=== PATIENT | male | born 1935 | race Caucasian/White ===

== ENCOUNTER 2018-10-27 08:32 | Inpatient (IN) ==
--- OUTSIDE RECORDS SUMMARY | 2018-10-27 08:33 | External Medical Summary | Continuity of Care Document ---
:1935 Author Name Bruno Armando Address Unavailable Unavailable , Care Team Providers Name Role Phone Jacqueline Ortega Unavailable [email or web address] Matteo DOS SANTOS Unavailable Unavailable Assessments Assessed Problems:Sensorineural hearing loss (SNHL) of both ears Problems Sensorineural hearing loss (SNHL) of both ears (389.18) (H90 .3) Allergies and Adverse Reactions Allergy history not documented Medications Medications not documented Procedures Procedures not documented Immunizations Immunizations not documented Plan of Treatment Planned Observations Planned Goals not documented Results No Known Results Results not documented Encounters Appointment; Raheem Rich Au.D.|SEBASTIEN 26-May-2017 8:40 Encounter Diagnosis: Problem not documented"
[2018-10-27] MEDS ORDERED: ALBUT/IPRATROP 3MG/0.5MG NEB 3 ML VIAL INH STA (08:48)
[2018-10-27 09:05] LABS: Basophils # (auto) 0.06 K/uL (0-0.2); Basophils % (auto) 0.6 %; Eosinophils # (auto) 0.28 K/uL (0-0.5); Eosinophils % (auto) 2.8 %; Hemoglobin 12.3 g/dL (14.0-18.0); Immature Granulocytes # (auto) 0.02 K/uL (0.00-0.02); Immature Granulocytes % (auto) 0.2 %; Lymphocytes # (auto) 1.04 K/uL (1.2-3.4); Lymphocytes % (auto) 10.5 %; Mean Corpuscular Hgb Conc 34.2 g/dL (32-36); Mean Corpuscular Volume 95.2 fL (80-100); Mean Platelet Volume 11.3 fL (7.4-10.4); Monocytes # (auto) 0.86 K/uL (0.11-0.59); Monocytes % (auto) 8.7 %; Neutrophils # (auto) 7.65 K/uL (1.4-6.5); Neutrophils % (auto) 77.2 %; Platelet Count 199 K/uL (130-400); RDW Coefficient of Variation 12.4 % (11.5-14.5); RDW Standard Deviation 43.1 fL (36.4-46.3); Red Blood Count 3.78 M/uL (4.7-6.1); White Blood Count 9.91 K/uL (4.8-10.8)
[2018-10-27 09:20] LABS: INR 1.1 (0.9-1.1); Partial Thromboplastin Time 27.3 Seconds (21.0-31.0); Prothrombin Time 11.5 Seconds (9.0-12.0)
[2018-10-27 09:25] LABS: BUN Creatinine Ratio 10.7 (10-20); Blood Urea Nitrogen 12 mg/dl (7-18); Calcium 8.7 mg/dl (8.5-10.1); Carbon Dioxide 26 mmol/L (21-32); Chloride 102 mmol/L (98-107); Est GFR (African American) 73.7; Est GFR (Non-African American) 63.6; Glucose 178 mg/dl (70-99); Potassium 4.1 mmol/L (3.5-5.1); Sodium 137 mmol/L (136-145)
[2018-10-27 09:31] LABS: Troponin I 0.086 ng/ml (0-0.045)
--- NOTE | 2018-10-27 09:32 | XRay Report ---
XR chest 1V portable HISTORY: Dyspnea COMPARISON: Chest 11/07/2017. FINDINGS: No pneumothorax. No pleural effusions. Mild emphysema. Mild diffuse interstitial thickening which is likely chronic. No new focal lung consolidations to suggest pneumonia. No evidence for pulm onary edema. The heart is stable in size. IMPRESSION: No significant change compared to the prior study. No acute process. Electronically signed by: Shamir Olmstead M.D. 10/27/2018 9:31 AM
[2018-10-27] MEDS ORDERED: ASPIRIN CHEW 324 MG PO STA (09:54)
--- NOTE | 2018-10-27 10:06 | Emergency Department Note ---
Entered by Gemma Russ acting as a scribe for History of Present Illness General Chief complaint: Shortness of Breath/Dyspnea Stated complaint: SOB Time Seen by Provider: 10/27/18 08:42 Source: patient History of Present Illness Onset (ago): week(s) 2 Location: chest Pain Consistency: + other (persistent) Maximum Pain Intensity: 0 Quality: + other (shortness of breath) Associated symptoms: + denies other symptoms (fever, chest pain), + cough (productive (white sputum)) and + other (post-nasal drip) The patient is a 83 year old male that is presenting to the Emergency Room with complaints of a persistent shortness of breath that started 2 weeks ago and worsened over the past 2 days. The patient reports that he has been unable to sleep for the past 2 night secondary to his symptoms. He states that his breathing has been so short that he was afraid he was going to in his sleep. He notes that he saw his PCP 3 days ago and that he is scheduled to get an x-ray. He reports that he has a productive cough that is producing white sputum. He states that he has some post-nasal drip that may be causing his cough. He denies any chest pain or fever. The patient notes that he has a history of mild COPD. Home Medications Home Medications Medication Instructions Recorded Confirmed Type aspirin 81 mg PO QAM 10/27/18 10/27/18 History atorvastatin 10 mg PO QAM 10/27/18 10/27/18 History doxazosin 2 mg PO QAM 10/27/18 10/27/18 History fluticasone propionate 2 spray INTRANASAL BID 10/27/18 10/27/18 History lisinopril 40 mg PO QAM 10/27/18 10/27/18 History metoprolol succinate 25 mg PO QAM 10/27/18 10/27/18 History mirtazapine 45 mg PO HS 10/27/18 10/27/18 History Allergies Allergy/AdvReac Type Severity Reaction Status Date / Time No Known Allergies Allergy Unknown Verified 10/27/18 09:12 Past Med/Surg History Medical History Constipation Diarrhea Overflow diarrhea COPD (chronic obstructive pulmonary disease) Family History Other Family history non-contributory Social History marital status: Current Living Situation: Spouse current occupational status: retired Feels Safe at Home: Yes Smoking Status: Former smoker Review of Systems See HPI for pertinent positives & negatives. and A total of 10 systems reviewed and were otherwise negative Physical Exam Vital Signs Vital Signs - 24 hr 10/27/18 08:36 10/27/18 08:45 10/27/18 08:58 Temperature 36.6 C Temperature Source Oral Sepsis Recent Fever Within 48 Hours No Sepsis Action Taken by Nursing No Action Required Pulse Rate 96 H Pulse Rate [Left Radial] Respiratory Rate 24 Respiratory Effort / Characteristics Non-Labored Respiratory Depth Normal Normal Respiratory Pattern Regular Blood Pressure 149/55 H Blood Pressure [Right Arm] Blood Pressure Mean 86 Blood Pressure Mean [Right Arm] Pulse Oximetry 94 96 96 Oxygen Delivery Method Room Air Room Air Room Air 10/27/18 09:03 10/27/18 09:42 Temperature Temperature Source Sepsis Recent Fever Within 48 Hours Sepsis Action Taken by Nursing Pulse Rate Pulse Rate [Left Radial] 85 90 Respiratory Rate 20 18 Respiratory Effort / Characteristics Spontaneous Respiratory Depth Respiratory Pattern Blood Pressure Blood Pressure [Right Arm] 125/68 Blood Pressure Mean Blood Pressure Mean [Right Arm] 87 Pulse Oximetry 94 98 Oxygen Delivery Method Room Air CONSTITUTIONAL/VITAL SIGNS: Reviewed / noted above. GENERAL: Non-toxic in appearance. INTEGUMENTARY: Warm, dry, and [place]. HEAD: Normocephalic. EYES: without scleral icterus or trauma. ENT/OROPHARYNX: clear and moist. LYMPHADENOPATHY/NECK: Is supple without lymphadenopathy or meningismus. RESPIRATORY: Mild scattered expiratory wheezing. CARDIOVASCULAR: Regular rate and rhythm. GI/ABDOMEN: Soft and nontender. No organomegaly or pulsatile mass. No rebound or guarding. Normal bowel sounds. EXTREMITIES: Warm and well perfused. BACK: No CVA tenderness. NEUROLOGICAL: Intact without focal deficits. PSYCHIATRIC: normal affect. MUSCULOSKELETAL: Normally developed with good muscle tone. Course 0844:The patient was evaluated in room A10. A complete history and physical examination was performed. 58: I discussed the patient's case with JYOTSNA Wiley, who will evaluate the patient for further management and care with Dr. Moreno as the attending physician. 1006: Upon reevaluation, the patient is resting comfortably. I discussed laboratory and radiographic results with the patient. He verbalized agreement of the treatment plan. The patient will be evaluated for further management and care. Consultations Consultation #1: I discussed the patient's case with JYOTSNA Wiley, who will evaluate the patient for further management and care with Dr. Moreno as the attending physician. Time: 09:58 Administered Medications Discontinued Medications Albuterol (Duoneb) 3 ml INH NOW STA Stop: 10/27/18 08:49 Last Admin: 10/27/18 09:01 Dose: 3 ml Documented by: [id number] Medical Decision Making Differential Diagnosis Differential diagnosis: Etiologies such as infections, reactive airway disease, COPD, pneumonia, pleural effusion, pulmonary edema, ARDS, pneumothorax, CHF, cardiac ischemia, cardiac tamponade, dysrhythmia, anemia, pulmonary embolism, musculoskeletal, gastrointestinal process, as well as others were entertained. Medical Records Attestation: I reviewed the patient's medical records. Home Medications Current Medication List: was personally reviewed by me Laboratory Data Attestation: I reviewed the patient's lab results. Result diagrams: 10/27/18 08:55 10/27/18 08:55 Lab Results 10/27/18 10/27/18 10/27/18 Range/Units 08:55 08:55 08:55 WBC 9.91 (4.8-10.8) K/uL RBC 3.78 L (4.7-6.1) M/uL Hgb 12.3 L (14.0-18.0) g/dL Hct 36.0 L (42-52) % MCV 95.2 (80-100) fL MCH 32.5 (25-34) pg MCHC 34.2 (32-36) g/dL RDW Std Deviation 43.1 (36.4-46.3) fL RDW Coeff of Ty 12.4 (11.5-14.5) % Plt Count 199 (130-400) K/uL MPV 11.3 H (7.4-10.4) fL Immature Gran % (Auto) 0.2 % Neut % (Auto) 77.2 % Lymph % (Auto) 10.5 % [place] % (Auto) 8.7 % Eos % (Auto) 2.8 % Baso % (Auto) 0.6 % Immature Gran # (Auto) 0.02 (0.00-0.02) K/uL Neut # (Auto) 7.65 H (1.4-6.5) K/uL Lymph # (Auto) 1.04 L (1.2-3.4) K/uL [place] # (Auto) 0.86 H (0.11-0.59) K/uL Eos # (Auto) 0.28 (0-0.5) K/uL Baso # (Auto) 0.06 (0-0.2) K/uL PT 11.5 (9.0-12.0) Seconds INR 1.1 (0.9-1.1) APTT 27.3 (21.0-31.0) Seconds PTT Ratio 1.0 Sodium 137 (136-145) mmol/L Potassium 4.1 (3.5-5.1) mmol/L Chloride 102 (98-107) mmol/L Carbon Dioxide 26 (21-32) mmol/L Anion Gap 9.0 (3-11) BUN 12 (7-18) mg/dl Creatinine 1.08 (0.6-1.4) mg/dl Est Cr Clr Drug Dosing Not Reportable Est GFR ( Amer) 73.7 Est GFR (Non-Af Amer) 63.6 BUN/Creatinine Ratio 10.7 (10-20) Glucose 178 H (70-99) mg/dl Calcium 8.7 (8.5-10.1) mg/dl Troponin I 0.086 H* (0-0.045) ng/ml Imaging Data Radiologist's Impression: Radiology results as stated below per my review and the radiologist's interpretation: XR chest 1V portable HISTORY: Dyspnea COMPARISON: Chest 11/07/2017. FINDINGS: No pneumothorax. No pleural effusions. Mild emphysema. Mild diffuse interstitial thickening which is likely chronic. No new focal lung consolidations to suggest pneumonia. No evidence for pulmonary edema. The heart is stable in size. IMPRESSION: No significant change compared to the prior study. No acute process. Electronically signed by: Shamir Olmstead M.D. 10/27/2018 9:31 AM ECG Data Attestation: I personally reviewed and interpreted this ECG as follows: Indication: SOB/dyspnea Rate (beats per minute): 85 Rhythm: sinus rhythm Findings: + LBBB and + PVC; no ST elevation Comparison ECG Date: from (03/23/1999) Change: the following changes noted (LBBB is new) Blood Pressure Blood Pressure Findings: Elevated blood pressure Blood Pressure Disposition: Referred to patients primary care provider ANUP Leung This is an 83-year-old male who presents to the ED with a chief complaint of shortness of breath. The patient states that he has had shortness of breath for several weeks. He states that he saw his doctor 3 days ago and is to have a chest x-ray performed. Because of increased shortness of breath especially at night over the past couple of days, he came to the ED for evaluation. He states that he has not slept well the last couple of nights because of his shortness of breath. He does report a slight cough that is productive of white sputum. He states that this is mostly chronic related to postnasal drip. He denies having any chest pains. He has not had any fevers. He denies any other significant symptoms but does report some exertional shortness of breath with activity at times. The patient's vital signs are stable. He is afebrile. His physical exam was unremarkable with exception of a scattered wheeze in the bases. He was given a DuoNeb treatment for this. The patient's chest x-ray was clear. CBC and chemistry panel was unremarkable. Troponin was elevated at 0.086. Glucose is 178. EKG shows a sinus rhythm with a rate of 85 with a left bundle branch bl ock. According to the [facility] records, this is chronic. The patient was told the results of the test. He was given aspirin p.o. for his elevated troponin. He is currently not having any chest discomfort. He is otherwise resting comfortably in no distress. I talked to the hospitalist about the patient. They recommended a CT scan of the chest and will see the patient for inpatient evaluation for the elevated troponin. Impression & Plan Elevated troponin, Dyspnea Discharge Plan Visit Data Chief Complaint: Shortness of Breath/Dyspnea Stated Complaint: SOB ED Provider: Eitan Carolina Discharge Problem: Elevated troponin, Dyspnea Patient Disposition: Being Evaluated by Hospitalist Forms Stand Alone Forms: [facility] [employer] Prescriptions Prescriptions: No Action atorvastatin 10 mg tablet 10 mg PO QAM RF: 0 aspirin 81 mg Tablet,Delayed Release (Dr/Ec) 81 mg PO QAM RF: 0 mirtazapine 45 mg tablet 45 mg PO HS RF: 0 metoprolol succinate 25 mg tablet extended release 24 hr 25 mg PO QAM RF: 0 lisinopril 40 mg tablet 40 mg PO QAM RF: 0 fluticasone propionate 50 mcg/actuation spray,suspension 2 spray intranasal BID RF: 0 doxazosin 2 mg tablet 2 mg PO QAM RF: 0 Referrals Referrals: Taylor Lopez DO [Primary Care Provider] - Discharge Problem: Dyspnea Qualifiers: Dyspnea type: unspecified Qualified Code(s): R06.00 - Dyspnea, unspecified The scribe's documentation has been prepared under my direction and personally reviewed by me in its entirety. I confirm that the note above accurately reflects all work, treatment, procedures, and medical decision making performed by me.
[2018-10-27] MEDS ORDERED: IOVERSOL 100ml IV PRN (10:18)
--- NOTE | 2018-10-27 10:44 | CT Scan Report ---
CHEST CTA for PULMONARY ARTERIES CT DOSE: 575.15 mGy.cm HISTORY: Atypical chest pain. TECHNIQUE: Multiaxial CT images of the chest were performed following the intravenous administration of contrast to evaluate the pulmonary arteries. Maximal intensity projection images were also obtaine d. A dose lowering technique was utilized adhering to the principles of ALARA. COMPARISON STUDY: Chest CT 11/09/2017. FINDINGS: Mild calcified plaque within the normal caliber abdominal aorta. There is inadequate contra st within thoracic aorta to assess for a dissection. The heart is mildly enlarged. No pericardial eff usion. Small bilateral pleural effusions, right greater than left. No filling defects within the pulm onary arteries to suggest pulmonary embolus. Left adrenal gland thickening. This remains unchanged. T he visualized liver and spleen are unremarkable. Normal esophagus. Mediastinal and bilateral hilar ly mphadenopathy. Dominant AP window lymph node measures 2.0 x 1.5 cm. The lymphadenopathy is similar to the prior study. No pneumothorax. Mild emphysema with mild diffuse interstitial thickening. Small no dular densities within the right mainstem bronchus favors mucoid material. Partial mucoid opacificati on of the left lower lobe rhonchi. Patchy densities within the basal left lower lobe. This favors a p neumonia may be secondary to aspiration. Additional areas of consolidation within the lower lobes pos teriorly favors compressive atelectasis from the pleural effusions. Stable 5 mm nodule within the lef t lower lobe on image 166. There is also a stable 8 mm irregular nodular density within the left uppe r lobe posteriorly on image 214. I also demonstrate partial calcification no new pulmonary nodules id entified. IMPRESSION: 1. No evidence for pulmonary embolus. 2. Small bilateral pleural effusions. 3. Emphysema. 4. No change in the mild mediastinal and bilateral hilar lymphadenopathy. 5. Stable left lung nodules as described above the largest measuring 8 mm. These appear to be partial ly calcified. [address] follow-up recommended to ensure stability. 6. Partial mucoid opacification of the left lower lobe bronchi with a patchy airspace opacity at the left lower lobe. This may represent a pneumonia secondary to aspiration. Electronically signed by: Shamir Olmstead M.D. 10/27/2018 10:42 AM
[2018-10-27] MEDS ORDERED: AZITHROMYCIN 500 MG in DEXTROSE 5% 250 ML IV ONE (10:55)
[2018-10-27] MEDS ORDERED: cefTRIAXone SODIUM 1,000 MG in DEXTROSE 5% 50 ML IV STA (10:55)
[2018-10-27] MEDS ORDERED: AMPICILLIN/SULBACTAM SOD 3,000 MG in 0.9 % SODIUM CHLORIDE 100 ML IV SCH (11:03)
[2018-10-27] MEDS ORDERED: ALBUT/IPRATROP 3MG/0.5MG NEB 3 ML VIAL NEB PRN (12:13)
[2018-10-27] MEDS ORDERED: ACETAMINOPHEN 325 MG TAB PO PRN (12:13)
[2018-10-27 12:42] LABS: Estimated Average Glucose 123 mg/dl
[2018-10-27] MEDS ORDERED: DOXYCYCLINE HYCLATE 100 MG in DEXTROSE 5% 100 ML IV SCH (13:00)
--- NOTE | 2018-10-27 13:04 | History & Physical Report ---
Date of Service October 27, 2018 Assessment & Plan (1) Pneumonia: -Admit to [facility] with telemetry -Patient presenting with shortness of breath that has been ongoing for the past several months however acutely worsened over the past 2 days -In the ED, CTA chest showing left lower lobe patchy opacity, question possible aspiration -Saturating well on room air, afebrile, no leukocytosis -Given concerns for aspiration, will start patient on IV Unasyn and add on IV doxycycline (considered azithromycin however QTC 478) -No wheezing, will hold on steroids at this time -Pulmonary toilet with flutter valve, incentive spirometer, PRN nebs -Speech therapy eval re: possible aspiration (2) Elevated troponin: -Mildly elevated troponin at 0.086 -No reports of chest pain, EKG demonstrates unchanged LBBB -Likely due to mild demand ischemia secondary to acute illness -Continue cycle cardiac enzymes, check resting echo -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 Patient reports chronic shortness of breath over the past several months which has slowly been worsening. He reports acute worsening of the shortness of breath over the past couple of days. He has had a cough productive for white and yellow sputum at times. Cough is somewhat chronic as well. He reports worsening of the shortness of breath and cough when he lies flat at night. No chest pain. He denies fevers and chills. No lightheadedness, dizziness, diaphoresis, syncopal events. Patient reports his appetite is fair and has been trying to put on some weight. He reports a intentional 10 pound weight gain in the past 6 months. He does note some occasional coughing with eating. No lower extremity edema. He denies abdominal pain, nausea, vomiting, diarrhea. No urin thompson symptoms. In the ED, troponin is mildly elevated at 0.086. EKG shows an unchanged LBBB. CTA chest is negative for pulmonary embolism however shows left lower lobe patchy opacity. Patient is saturating well on room air. He was given a nebulizer and full dose aspirin. He reports improvement in his symptoms since receiving the neb. Allergies Allergy/AdvReac Type Severity Reaction Status Date / Time No Known Allergies Allergy Unknown Verified 10/27/18 09:12 Home Medications Home Medications Medication Instructions Recorded Confirmed Type aspirin 81 mg PO QAM 10/27/18 10/27/18 History atorvastatin 10 mg PO QAM 10/27/18 10/27/18 History doxazosin 2 mg PO QAM 10/27/18 10/27/18 History fluticasone propionate 2 spray INTRANASAL BID 10/27/18 10/27/18 History lisinopril 40 mg PO QAM 10/27/18 10/27/18 History metoprolol succinate 25 mg PO QAM 10/27/18 10/27/18 History mirtazapine 45 mg PO HS 10/27/18 10/27/18 History Past Med/Surg History Medical History Nonischemic cardiomyopathy (Chronic) History of EF is low as 35 to 40%, echo 2011 EF 58% Depression (Chronic) BPH (benign prostatic hyperplasia) (Chronic) Hypertension (Chronic) LBBB (left bundle branch block) (Chronic) PVD (peripheral vascular disease) (Chronic) 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 Pulmonary nodules (Chronic) COPD, mild (Chronic) Dyslipidemia (Chronic) Surgical History History of cardiac cath (Chronic) 2006-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) History of tonsillectomy and adenoidectomy (Chronic) History of cataract surgery (Chronic) History of appendectomy (Chronic) Family History Mother Hypertension Social History Preferred Language: [place] Communication Ability: Effective Broach Setter Required: No Beliefs That Will Affect Care: None marital status: Current Living Situation: Spouse current occupational status: retired Other Information That Helps Us Care for You: No Feels Safe at Home: Yes Safety Concerns: Feels Safe At This Time Smoking Status: Former smoker Tobacco Type: cigarettes Cigarettes Per Day: 20 Do You Dip or Chew Tobacco: No Second Hand Exposure: No Tobacco Cessation Ed ucation Requested by Patient: No Hx Alcohol Use: No Hx Substance Use: No Review of Systems Review of Systems: ROS per HPI, all other systems reviewed and negative Physical Exam Constitutional: + thin and + cachectic Vitals as above Eyes: PERRL, conjunctivae normal, anicteric sclerae ENMT: external ear and nose normal, oropharynx normal Respiratory: normal respiratory effort; no respiratory distress Auscultation: + diminished lung sounds Cardiovascular: Rate/Rhythm: regular rate and regular rhythm Vessels: normal peripheral pulses Extremities: no edema Gastrointestinal (Abdomen): normal bowel sounds, soft, nontender, no hepatosplenomegaly Musculoskeletal: no cyanosis or clubbing, extremities motor strength 5/5 Skin: no rashes, warm and dry Neurologic: PERRL, EOMI, accommodation nl, no face palsy, no dysarthria Psychiatric: A+Ox3, euthymic affect Results & Data Vital Signs (Past 12 Hours) Vital Signs Temp Pulse Pulse Resp BP BP BP 10/27/18 12:07 36.4 C L 66 18 134/64 10/27/18 11:30 77 22 120/77 10/27/18 11:00 76 20 139/70 10/27/18 10:20 85 16 144/57 H 10/27/18 09:42 90 18 125/68 10/27/18 09:03 85 20 10/27/18 08:58 10/27/18 08:45 10/27/18 08:36 36.6 C 96 H 24 149/55 H Pulse Ox 10/27/18 12:07 95 10/27/18 11:30 93 10/27/18 11:00 94 10/27/18 10:20 94 10/27/18 09:42 98 10/27/18 09:03 94 10/27/18 08:58 96 10/27/18 08:45 96 10/27/18 08:36 94 Laboratory Results Short CBC 10/27/18 Range/Units 08:55 WBC 9.91 (4.8-10.8) K/uL Hgb 12.3 L (14.0-18.0) g/dL Hct 36.0 L (42-52) % Plt Count 199 (130-400) K/uL BMP 10/27/18 08:55 Sodium 137 Potassium 4.1 Chloride 102 Carbon Dioxide 26 BUN 12 Creatinine 1.08 Glucose 178 H Calcium 8.7 Cardiac Enzymes 10/27/18 Range/Units 08:55 Troponin I 0.086 H* (0-0.045) ng/ml Diagnostic Findings CXR IMPRESSION: No significant change compared to the prior study. No acute process. CTA CHEST IMPRESSION: 1. No evidence for pulmonary embolus. 2. Small bilateral pleural effusions. 3. Emphysema. 4. No change in the mild mediastinal and bilateral hilar lymphadenopathy. 5. Stable left lung nodules as described above the largest measuring 8 mm. These appear to be partially calcified. [address] follow-up recommended to ensure stability. 6. Partial mucoid opacification of the left lower lobe bronchi with a patchy airspace opacity at the left lower lobe. This may represent a pneumonia secondary to aspiration. Code Status & VTE Plan Code Status Patient is a full code as per my discussion with him. VTE Prophylaxis Plan VTE Prophylaxis will be ordered: Yes Supervising Physician Co-Signing Physician Notes Patient is an 83-year-old male with history of hypertension, BPH, prediabetes, COPD, tobacco use, coronary artery disease and other problems presents with history of shortness of breath, cough which have been slowly progressively worsening. Please review HPI for complete details of presentation. CTA showed findings suggestive of small bilateral pleural effusions, emphysema, unchanged mild mediastinal and bilateral hilar lymphadenopathy, left lung nodules and possible partial mucoid opacification of the left lower lobe bronchi with patchy airspace opacity of the left lower lobe suggestive of possible pneumonia secondary to aspiration. He was also noted to have mild troponin elevation. His echo showed decreased EF, diastolic dysfunction. On exam patient is thin, frail, no apparent distress, normocephalic atraumatic, lungs-decreased breath sounds, bilateral basal crackles, S1-S2, no murmur, abdomen soft nontender, grossly no focal neurological deficits, no pedal edema. Patient is admitted for management of pneumonia, for evaluation of elevated troponins. No signs of sepsis. Agree with p.o. antibiotics. Appreciate cardiology input. Given Lasix. Management of volume status, ischemic cardiomyopathy, PVCs as per cardiology. I personally reviewed the record. Patient is interviewed and examined at bedside. Patient's care is coordinated with Tanja Herrera NP. Please refer to the documentation above for details of patient's presentation and for discussion of other issues.
[2018-10-27] MEDS: ENOXAPARIN INJ 40 MG/0.4 ML SYR SQ SCH (13:45)
--- NOTE | 2018-10-27 15:32 | Cardiology Consultation ---
Date of Consultation October 27, 2018 Assessment & Plan (1) Nonischemic cardiomyopathy: (2) LBBB (left bundle branch block): The patient underwent cardiac catheterization at [facility] in 2005 due to findings of left bundle branch block and mild to moderate left ventricular systolic dysfunction noted at that time. He was found to have a 50% stenosis in the mid LAD, and a 50% stenosis of 1 of the subbranches of a large diagonal branch. Medication therapy for ischemic cardiomyopathy was therefore instituted and he has done well for several years. A Holter monitor performed as an outpatient in 2010 revealed a moderate degree of PVCs and frequent supraventricular ectopy. Telemetry reveals frequent ectopy. Is little bit difficult to distinguish between what is supraventricular and what is ventricular to be due to the underlying left bundle branch block, but I believe he has frequent PVCs including episodes of sinus rhythm with ventricular bigeminy. The patient describes slow progressive worsening shortness of breath. He certainly could have worsening left ventricular systolic dysfunction due to progression of his coronary heart disease, but this could also very well be due to underlying left bundle branch block and frequent PVCs. Will start with dose of furosemide 20 mg IV x 1. DC IV antibiotics for now as I do not want to the IV fluid to contribute to volume overload. I think it is reasonable to proceed with a course of oral antibiotics until this is sorted out as he could have a superimposed pulmonary infection based on the CT. Continue aspirin, atorvastatin, lisinopril, metoprolol succinate. Lovenox 40 mg subcutaneously for DVT prophylaxis. Check liver function tests and TSH tomorrow. It may be reasonable to consider adding amiodarone as an inpatient while monitored on telemetry and attempt to suppress his ectopy as the ectopy may be contributing to his LV systolic dysfunction or perhaps it is a result of the LV systolic dysfunction. He has a mild but flat blunted elevation troponin, I think at this time this is consistent with congestive heart failure decompensation rather than an acute coronary syndrome. History of Present Illness Attending Physician: Yari Sarah DO History of Present Illness Krzysztof Victoria is an 83 year old male seen in cardiology consultation per the request of JYOTSNA Wiley for the evaluation of shortness of breath with findings of left ventricular systolic dysfunction on an echocardiogram performed earliear today. The patient has a long-standing history of left bundle branch block. An echocardiogram performed in 2008 revealed abnormal septal motion consistent with left bundle branch block and moderate global left ventricular hypokinesis with resting ejection fraction in the range of 35 to 40% at that time. He was treated with medications including metoprolol and lisinopril. Repeat resting transthoracic echocardiogram performed as an outpatient 2011 revealed normaliz ation of the LVEF. He had most recently been seen in outpatient cardiology follow-up with Dr. Davidson in 2011 at which time stable cardiac signs and symptoms were noted. Patient presented to the emergency department earlier today with complaints of shortness of breath and cough. Apparently the shortness of breath has been present over the last several months however it is been progressively worse, especially over the last few days. He has had a cough productive of white and yellow sputum at times. He reports worsening of the shortness of breath and cough when he lies flat. He denies any aleksandar chest discomfort. 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 He lives in [facility] with his and granddaughter. A CT angiogram have been performed in the emergency department revealed no pulmonary embolism, but did show small bilateral pleural effusions as well as a left lower lobe opacity. The patient was admitted and placed on antibiotics for suspected community acquired pneumonia. A resting transthoracic echocardiogram was performed. During the echocardiogram frequent ectopy was noted with moderate left ventricular systolic dysfunction, calculated LVEF in the range of 37%. Mild to moderate mitral regurgitation was noted. Mild tricuspid regurgitation was noted with calculated pulmonary artery systolic pressure in the range of 44 mmHg. A trace circumferential pericardial effusion without tamponade was noted. Allergies Allergy/AdvReac Type Severity Reaction Status Date / Time No Known Allergies Allergy Unknown Verified 10/27/18 09:12 Home Medications Home Medications Medication Instructions Recorded Confirmed Type aspirin 81 mg PO QAM 10/27/18 10/27/18 History atorvastatin 10 mg PO QAM 10/27/18 10/27/18 History doxazosin 2 mg PO QAM 10/27/18 10/27/18 History fluticasone propionate 2 spray INTRANASAL BID 10/27/18 10/27/18 History lisinopril 40 mg PO QAM 10/27/18 10/27/18 History metoprolol succinate 25 mg PO QAM 10/27/18 10/27/18 History mirtazapine 45 mg PO HS 10/27/18 10/27/18 History Patient History Medical History Nonischemic cardiomyopathy (Chronic) History of EF is low as 35 to 40%, echo 2012 EF 58% Depression (Chronic) BPH (benign prostatic hyperplasia) (Chronic) Hypertension (Chronic) LBBB (left bundle branch block) (Chronic) PVD (peripheral vascular disease) (Chronic) 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 Pulmonary nodules (Chronic) COPD, mild (Chronic) Dyslipidemia (Chronic) Surgical History History of cardiac cath (Chronic) 2006-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) History of tonsillectomy and adenoidectomy (Chronic) History of cataract surgery (Chronic) History of appendectomy (Chronic) Family History Mother Hypertension Social History Preferred Language: Bengali Communication Ability: Effective Engine Pilot Required: No Beliefs That Will Affect Care: None marital status: Current Living Situation: Spouse current occupational status: retired Other Information That Helps Us Care for You: No Feels Safe at Home: Yes Safety Concerns: Feels Safe At This Time Smoking Status: Former smoker Tobacco Type: cigarettes Cigarettes Per Day: 20 Do You Dip or Chew Tobacco: No Second Hand Exposure: No Tobacco Cessation Education Requested by Patient: No Hx Alcohol Use: No Hx Substance Use: No Review of Systems Review of Systems: All systems reviewed & are unremarkable except as noted in HPI & below Physical Exam Constitutional: + cachectic; no acute distress Respiratory: Auscultation: + diminished lung sounds (Mildly decreased breath sounds the bases); no crackles, no rales and no rhonchi Cardiovascular: RRR, no murmur, no edema Vessels: no JVD Extremities: no edema Gastrointestinal (Abdomen): normal bowel sounds, soft, nontender, no hepatosplenomegaly Neurologic: PERRL, EOMI, accommodation nl, no face palsy, no dysarthria Results & Data Vital Signs (Past 12 Hours) Vital Signs Temp Pulse Pulse Resp BP BP BP 10/27/18 15:01 10/27/18 14:46 36.4 C L 69 20 130/66 10/27/18 12:07 36.4 C L 66 18 134/64 10/27/18 11:30 77 22 120/77 10/27/18 11:00 76 20 139/70 10/27/18 10:20 85 16 144/57 H 10/27/18 09:42 90 18 125/68 10/27/18 09:03 85 20 10/27/18 08:58 10/27/18 08:45 10/27/18 08:36 36.6 C 96 H 24 149/55 H Pulse Ox Pulse Ox 10/27/18 15:01 95 10/27/18 14:46 95 10/27/18 12:07 95 10/27/18 11:30 93 10/27/18 11:00 94 10/27/18 10:20 94 10/27/18 09:42 98 10/27/18 09:03 94 10/27/18 08:58 96 10/27/18 08:45 96 10/27/18 08:36 94 Laboratory Results Cardiac Enzymes 10/27/18 10/27/18 Range/Units 08:55 14:41 Troponin I 0.086 H* 0.081 H* (0-0.045) ng/ml Coagulation 10/27/18 Range/Units 08:55 PT 11.5 (9.0-12.0) Seconds APTT 27.3 (21.0-31.0) Seconds CBC 10/27/18 Range/Units 08:55 WBC 9.91 (4.8-10.8) K/uL RBC 3.78 L (4.7-6.1) M/uL Hgb 12.3 L (14.0-18.0) g/dL Hct 36.0 L (42-52) % Plt Count 199 (130-400) K/uL Neut # (Auto) 7.65 H (1.4-6.5) K/uL Lymph # (Auto) 1.04 L (1.2-3.4) K/uL [place] # (Auto) 0.86 H (0.11-0.59) K/uL Eos # (Auto) 0.28 (0-0.5) K/uL Baso # (Auto) 0.06 (0-0.2) K/uL Comprehensive Metabolic Panel 10/27/18 Range/Units 08:55 Sodium 137 (136-145) mmol/L Potassium 4.1 (3.5-5.1) mmol/L Chloride 102 (98-107) mmol/L Carbon Dioxide 26 (21-32) mmol/L BUN 12 (7-18) mg/dl Creatinine 1.08 (0.6-1.4) mg/dl Glucose 178 H (70-99) mg/dl Calcium 8.7 (8.5-10.1) mg/dl Intake and Output 10/27/18 10/27/18 10/27/18 06:59 14:59 22:59 Intake Total 468 / 468 Balance 468 / 468 Intake: IV 108 / 108 Unasyn 3,000 mg In Sodium 108 / 108 Chloride 100 ml @ 200 mls/hr IV Q6H [facility] Rx#:[id number] Oral 360 / 360 Other: # Unmeasured Voids 1 Weight 56.3 kg 56.3 kg Patient Weight 10/28/18 06:59 Weight 56.3 kg Diagnostic Findings EKG performed today 10/27/2018 at 8:44 AM revealed sinus rhythm with frequent supraventricular and ventricular ectopy, left bundle branch block, QRS duration 144 ms. Medications Administered Current Inpatient Medications Acetaminophen (Tylenol) 650 mg PO Q4H PRN PRN Reason: pain/fever Stop: 11/26/18 12:12 Albuterol (Duoneb) 3 ml NEB Q4R PRN PRN Reason: shortness of breath Stop: 11/26/18 12:12 Amoxicillin/Clavulanate Potassium (Augmentin 875mg) 1 tab PO BIDM [facility] Stop: 11/03/18 16:59 Aspirin (Ecotrin Ectab) 81 mg PO QAM [facility] Stop: 11/27/18 08:59 Atorvastatin Calcium (Lipitor) 10 mg PO QAM [facility] Stop: 11/27/18 08:59 Doxazosin Mesylate (Cardura) 2 mg PO QAM [facility] Stop: 11/27/18 08:59 Doxycycline Hyclate (Vibramycin) 100 mg PO BID [facility] Stop: 11/03/18 20:59 Enoxaparin Sodium (Lovenox) 40 mg SQ Q24H [facility] Stop: 11/26/18 12:59 Last Admin: 10/27/18 13:45 Dose: 40 mg Documented by: Fluticasone Propionate (Flonase) 2 sprays NA BID [facility] Stop: 11/26/18 20:59 Lisinopril (Zestril) 40 mg PO QAM [facility] Stop: 11/27/18 08:59 Metoprolol Succinate (Toprol Xl) 25 mg PO QAM [facility] Stop: 11/27/18 08:59 Mirtazapine (Remeron Solutab) 45 mg PO HS [facility] Stop: 11/26/18 20:59
[2018-10-27] MEDS ORDERED: FUROSEMIDE 20 MG in SYRINGE 0 ML IV ONE (16:00)
[2018-10-27] MEDS: AMOXICILLIN/CLAVULANATE 875 MG TAB PO SCH (16:59)
[2018-10-27] MEDS: DOXYCYCLINE HYCLATE 100 MG CAP PO SCH (21:02)
[2018-10-27] MEDS: FLUTICASONE PROPIONATE NA SPR 16 GM BTL SCH (21:02)
[2018-10-27] MEDS: MIRTAZAPINE SOLTAB 15 MG PO SCH (21:03)
[2018-10-28 01:56] LABS: Basophils # (auto) 0.05 K/uL (0-0.2); Basophils % (auto) 0.4 %; Eosinophils # (auto) 0.26 K/uL (0-0.5); Hematocrit (blood only) 37.8 % (42-52); Hemoglobin 12.7 g/dL (14.0-18.0); Immature Granulocytes # (auto) 0.02 K/uL (0.00-0.02); Immature Granulocytes % (auto) 0.2 %; Lymphocytes # (auto) 0.37 K/uL (1.2-3.4); Lymphocytes % (auto) 2.9 %; Mean Corpuscular Hgb Conc 33.6 g/dL (32-36); Mean Corpuscular Volume 96.2 fL (80-100); Mean Platelet Volume 11.6 fL (7.4-10.4); Monocytes # (auto) 0.53 K/uL (0.11-0.59); Monocytes % (auto) 4.2 %; Neutrophils # (auto) 11.48 K/uL (1.4-6.5); Neutrophils % (auto) 90.3 %; Platelet Count 209 K/uL (130-400); RDW Coefficient of Variation 12.6 % (11.5-14.5); RDW Standard Deviation 44.5 fL (36.4-46.3); Red Blood Count 3.93 M/uL (4.7-6.1); White Blood Count 12.71 K/uL (4.8-10.8)
[2018-10-28] MEDS: METOPROLOL SUCC 25MG EXT REL TAB PO SCH (02:01)
[2018-10-28 02:10] LABS: Partial Thromboplastin Time 28.1 Seconds (21.0-31.0)
[2018-10-28 02:14] LABS: BUN Creatinine Ratio 13.6 (10-20); Calcium 8.5 mg/dl (8.5-10.1); Creatinine Clr Calc Pharmacy 32.6 ml/min; Est GFR (African American) 54.3; Est GFR (Non-African American) 46.9; Magnesium 2.2 mg/dl (1.8-2.4)
[2018-10-28 02:25] LABS: Albumin Globulin Ratio 0.7 (0.9-2); Bilirubin,Total 0.8 mg/dl (0.2-1); Globulin 4.5 gm/dl (2.5-4.0); Total Protein 7.5 gm/dl (6.4-8.2)
[2018-10-28] MEDS ORDERED: METOPROLOL SUCC 25MG EXT REL TAB PO SCH (09:00)
[2018-10-28] MEDS: DOXAZosin MESYLATE TAB 2 MG TAB PO SCH (09:26)
[2018-10-28] MEDS: FLUTICASONE PROPIONATE NA SPR 16 GM BTL SCH ×2 (09:26→20:45)
[2018-10-28] MEDS: AMOXICILLIN/CLAVULANATE 875 MG TAB PO SCH ×2 (09:26→17:11)
[2018-10-28] MEDS: ATORVASTATIN 10 MG TAB PO SCH (09:26)
[2018-10-28] MEDS: LISINOPRIL 40 MG TAB PO SCH (09:26)
[2018-10-28] MEDS: ASPIRIN 81 MG ECTAB PO SCH (09:26)
[2018-10-28] MEDS: DOXYCYCLINE HYCLATE 100 MG CAP PO SCH ×2 (09:27→20:46)
[2018-10-28] MEDS ORDERED: AMIODARONE 200 MG TAB PO ONE (13:02)
--- NOTE | 2018-10-28 13:10 | Cardiology Progress Note ---
Date of Service October 28, 2018 Assessment & Plan (1) Nonischemic cardiomyopathy: Echocardiogram reviewed again. It is felt that moderate left ventricular systolic dysfunction is present with ejection fraction in the range of 30 to 34% with abnormal septal motion consistent with left bundle branch block, and mild to moderate global left ventricular hypokinesis otherwise. Patient with remote cardiac cath for work-up of what was deemed to be a nonischemic cardiomyopathy dating back to 2005 at which time he had a 50% mid LAD lesion, and 50% stenosis of a subbranch of a large diagonal, this subbranch was too small to be amenable to PCI. The patient had been well with medication therapy including aspirin, metoprolol succinate, and lisinopril for years, and his ejection fraction normalized as of his echocardiogram in 2011. At present, continue metoprolol succinate 25 mg daily and lisinopril. Frequent supraventricular and ventricular ectopy noted as well as joceline of nonsustained ventricular tachycardia, at low-dose amiodarone with caution 200 mg twice daily. Ischemic work-up likely indicated, if no significant ischemia, will consider cardiac resynchronization therapy. The patient is considering how invasive approach he would prefer. He believes he would be agreeable to a cardiac catheterization but is not certain if he would be agreeable to pacemaker AICD . After 20 mg of IV furosemide his creatinine went from 1.08-1.39 he is not overtly volume overloaded today, I will hold off on further diuretic therapy. (2) Pneumonia: Possible superimposed pneumonia as noted on chest x-ray. Continue oral antibiotics. (3) NSVT (nonsustained ventricular tachycardia): 18 beat joceline of nonsustained ventricular tachycardia at 192 bpm was noted on 10/28/2018 at 1:02 AM. Continue metoprolol. Start amiodarone. Patient does have a history of past frequent supraventricular and ventricular ectopy. If he was to benefit from a cardiac resynchronization therapy, would need to place him on medication to suppress the ectopy, will start working on this now. Subjective Chief complaint: Follow-up cough, shortness of breath, orthopnea Subjective: Patient states breathing perhaps a little bit better after receiving 20 mg of IV furosemide yesterday. He still has persistent cough. Review of Systems Review of Systems: All systems reviewed & are unremarkable except as noted in HPI & below Physical Exam Physical Exam: Temp Pulse Resp BP Pulse Ox 36.6 C 87 18 110/57 L 94 10/28/18 10:46 10/28/18 12:25 10/28/18 10:46 10/28/18 10:46 10/28/18 10:46 Constitutional: WD/WN, vitals as above + cachectic Respiratory: normal respiratory effort, lungs clear to auscultation Cardiovascular: Rate/Rhythm: regular rate Heart Sounds: + murmur (1/6 systolic murmur) Vessels: + JVD Extremities: no edema Gastrointestinal (Abdomen): normal bowel sounds, soft, nontender, no hepatosplenomegaly Neurologic: PERRL, EOMI, accommodation nl, no face palsy, no dysarthria Results & Data Vital Signs (Past 12 Hours) Vital Signs Temp Pulse Pulse Resp BP Pulse Ox 10/28/18 12:25 87 10/28/18 10:46 36.6 C 74 18 110/57 L 94 10/28/18 06:56 36.4 C L 91 H 20 124/61 93 10/28/18 03:37 36.8 C 74 18 138/52 L 94
[2018-10-28] MEDS: ENOXAPARIN INJ 40 MG/0.4 ML SYR SQ SCH (13:37)
[2018-10-28] MEDS: AMIODARONE 200 MG TAB PO SCH (17:12)
--- NOTE | 2018-10-28 18:48 | Hospitalist Progress Note ---
Date of Service October 28, 2018 Assessment & Plan (1) Pneumonia: Pneumonia possibly secondary to aspiration. Continue Augmentin. No hypoxia or hemodynamic instability is present and he is afebrile and doing well on this. Video swallow study set up for tomorrow with speech pathology recommendations to follow. Continue pulmonary toilet with flutter valve, incentive spirometer and PRN nebulizers. (2) Elevated troponin: Likely secondary to structural heart disease in setting of infection. Blunted rise in troponin on serial examination. Cardiology is aware and considering further ischemic work-up with cardiac catheterization. (3) Nonischemic cardiomyopathy: History of nonischemic cardiopathy in the past with some nonobstructive cardiac disease seen at the time of diagnosis. Continue medical management of cardiac disease and potential cardiac cath per cardiology this admission. The patient is not overtly decompensated. Diuretics were discontinued. Amiodarone initiated (4) Hypertension: Blood pressure at goal, hold lisinopril in setting of mild CJ. Continue Toprol-XL 25 mg p.o. every morning. (5) CJ (acute kidney injury): Secondary to diuretics in setting of lisinopril. Hold lisinopril and repeat BMP in a.m. Diuretics are also stopped. (6) BPH (benign prostatic hyperplasia): Continue doxazosin (7) DVT prophylaxis: -SQ Lovenox Full code Disposition-pending further work-up with cardiac catheterization. Yari Sarah DO [facility] Hospitalist Subjective 83-year-old man presents to the emergency room with several weeks of shortness of breath which has been progressively worsened. He states he ultimately came to the ER because he was not able to sleep because he could not breathe. He states that during the day he was able to breathe better however, he denies any orthopnea or PND and has had no swelling or weight gain recently. He denies any chest pain. He reports some cough and cannot really give a history on how this has progressed. He denies any production to this cough. He denies any fevers or chills or sick contacts. He does report some possible choking on water recently but cannot give a timing of this and states he has had no issues swallowing solids. He does not have any hypoxia however work-up revealed a pneumonia possibly secondary to aspiration so he was started on IV Unasyn and an IV doxycycline to cover for atypicals. Speech therapy was consulted to evaluate the and recommended a video swallow study on Monday. Cardiology was consulted as an echocardiogram revealed a depressed ejection fraction which was a new finding. Additionally his troponin was mildly elevated. A cardiac cath was recommended. On telemetry overnight he had a 10 beat run of V. tach and has a left bundle branch block with frequent ectopy that is noted. Cardiology is medically managing with metoprolol succinate, lisinopril and adding low-dose amiodarone. IV diuretics were initiated however his renal function declined overnight and he is not overtly volume overloaded so this was held. The patient reports feeling "okay" and does not give many details without prompting. He is in no acute distress but reports having no appetite. He otherwise denies any symptoms and can reiterate to me the plan from speech and cardiology for tomorrow. Review of Systems Review of Systems: All systems reviewed & are unremarkable except as noted in HPI & below Physical Exam Physical Exam: CONSTITUTIONAL: thin, vitals as above, generally well- appearing EYES: normal conjunctivae, no scleral icterus ENT: MMM RESPIRATORY: clear to auscultation bilaterally, no crackles, rales or wheezes, normal respiratory effort CARDIOVASCULAR: regular rate and rhythm, S1 and 2 heard without murmurs, gallops or rubs, no JVD, no peripheral edema GASTROINTESTINAL: normal bowel sounds, soft, nontender, nondistended MUSCULOSKELETAL: strength 5/5 throughout, head is normocephalic and atraumatic SKIN: warm and dry NEUROLOGIC: CN 2-12 grossly intact, normal cognition and speech, no gross focal deficits. PSYCHIATRIC: alert cooperative and oriented to person, place and time. Results & Data Vital Signs (Past 12 Hours) Vital Signs Temp Pulse Pulse Pulse Resp BP Pulse Ox 10/28/18 17:13 81 10/28/18 17:10 79 10/28/18 15:53 36.5 C 47 L 20 115/65 96 10/28/18 12:25 87 10/28/18 10:46 36.6 C 74 18 110/57 L 94 10/28/18 06:56 36.4 C L 91 H 20 124/61 93 Laboratory Results Short CBC 10/28/18 Range/Units 01:38 WBC 12.71 H (4.8-10.8) K/uL Hgb 12.7 L (14.0-18.0) g/dL Hct 37.8 L (42-52) % Plt Count 209 (130-400) K/uL BMP 10/28/18 01:38 Sodium 135 L Potassium 4.0 Chloride 101 Carbon Dioxide 26 BUN 19 H D Creatinine 1.39 D Glucose 107 H Calcium 8.5 Cardiac Enzymes 10/27/18 Range/Units 21:25 Troponin I 0.082 H* (0-0.045) ng/ml Liver Function 10/28/18 Range/Units 01:38 Total Bilirubin 0.8 (0.2-1) mg/dl AST 11 L (15-37) U/L ALT 13 (12-78) U/L Alkaline Phosphatase 71 (45-117) U/L Albumin 3.0 L (3.4-5.0) gm/dl Medications Administered Current Inpatient Medications Acetaminophen (Tylenol) 650 mg PO Q4H PRN PRN Reason: pain/fever Stop: 11/26/18 12:12 Albuterol (Duoneb) 3 ml NEB Q4R PRN PRN Reason: shortness of breath Stop: 11/26/18 12:12 Amiodarone [facility]) [facility] Stop: 11/27/18 16:59 Last Admin: 10/28/18 17:12 Dose: 200 mg Documented by: Amoxicillin/Clavulanate Potassium (Augmentin 875mg) [facility]; Protocol Stop: 11/03/18 16:59 Last Admin: 10/28/18 17:11 Dose: 1 tab Documented by: Aspirin (Ecotrin Ectab) 81 mg PO [facility] Stop: 11/27/18 08:59 Last Admin: 10/28/18 09:26 Dose: 81 mg Documented by: Atorvastatin Calcium (Lipitor) 10 mg PO [facility] Stop: 11/27/18 08:59 Last Admin: 10/28/18 09:26 Dose: 10 mg Documented by: Doxazosin Mesylate (Cardura) 2 mg PO [facility] Stop: 11/27/18 08:59 Last Admin: 10/28/18 09:26 Dose: 2 mg Documented by: Doxycycline Hyclate (Vibramycin) 100 mg PO BID [facility]; Protocol Stop: 11/03/18 20:59 Last Admin: 10/28/18 09:27 Dose: 100 mg Documented by: Enoxaparin Sodium (Lovenox) 40 mg SQ Q24H [facility] Stop: 11/26/18 12:59 Last Admin: 10/28/18 13:37 Dose: 40 mg Documented by: Fluticasone Propionate (Flonase) 2 sprays NA BID [facility] Stop: 11/26/18 20:59 Last Admin: 10/28/18 09:26 Dose: 2 sprays Documented by: Lisinopril (Zestril) 40 mg PO QAM [facility] Stop: 11/27/18 08:59 Last Admin: 10/28/18 09:26 Dose: 40 mg Documented by: Metoprolol Succinate (Toprol Xl) 25 mg PO QAM [facility] Stop: 11/27/18 01:14 Last Admin: 10/28/18 02:01 Dose: 25 mg Documented by: Mirtazapine (Remeron Solutab) 45 mg PO HS [facility] Stop: 11/26/18 20:59 Last Admin: 10/27/18 21:03 Dose: 45 mg Documented by:
[2018-10-28] MEDS: MIRTAZAPINE SOLTAB 15 MG PO SCH (20:45)
[2018-10-29 08:27] LABS: Calcium 8.8 mg/dl (8.5-10.1); Est GFR (African American) 66.9; Est GFR (Non-African American) 57.7; Potassium 3.6 mmol/L (3.5-5.1)
[2018-10-29] MEDS: ASPIRIN 81 MG ECTAB PO SCH (08:27)
[2018-10-29] MEDS: ATORVASTATIN 10 MG TAB PO SCH (08:27)
[2018-10-29] MEDS: FLUTICASONE PROPIONATE NA SPR 16 GM BTL SCH ×2 (08:27→20:30)
[2018-10-29] MEDS: DOXAZosin MESYLATE TAB 2 MG TAB PO SCH (08:27)
[2018-10-29] MEDS: METOPROLOL SUCC 25MG EXT REL TAB PO SCH (08:28)
[2018-10-29] MEDS: AMIODARONE 200 MG TAB PO SCH ×2 (08:28→16:04)
[2018-10-29] MEDS: AMOXICILLIN/CLAVULANATE 875 MG TAB PO SCH ×2 (08:28→16:05)
[2018-10-29] MEDS: DOXYCYCLINE HYCLATE 100 MG CAP PO SCH (08:28)
--- NOTE | 2018-10-29 10:46 | Cardiology Progress Note ---
Date of Service October 29, 2018 Assessment & Plan (1) Nonischemic cardiomyopathy: Echocardiogram reviewed again. It is felt that moderate left ventricular systolic dysfunction is present with ejection fraction in the range of 30 to 34% with abnormal septal motion consistent with left bundle branch block, and mild to moderate global left ventricular hypokinesis otherwise. Patient with remote cardiac cath for work-up of what was deemed to be a nonischemic cardiomyopathy dating back to 2005 at which time he had a 50% mid LAD lesion, and 50% stenosis of a subbranch of a large diagonal, this subbranch was too small to be amenable to PCI. The patient is on adequate guideline directed medication. He may benefit from a biventricular pacemaker. We should exclude ischemia prior to proceeding with a resynchronize and device. We could perform a cardiac catheterization however, I think it is best that we performed a noninvasive study such as a pharmacologic nuclear stress test. If that study is markedly abnormal we will proceed with a cardiac catheterization. (2) Pneumonia: Possible superimposed pneumonia as noted on chest x-ray. Continue oral antibiotics. The patient is to have a swallowing study done for aspiration. (3) NSVT (nonsustained ventricular tachycardia): 18 beat joceline of nonsustained ventricular tachycardia at 192 bpm was noted on 10/28/2018 at 1:02 AM. Continue metoprolol. Start amiodarone. Patient does have a history of past frequent supraventricular and ventricular ectopy. If he was to benefit from a cardiac resynchronization therapy, would need to place him on medication to suppress the ectopy, will start working on this now. Subjective The patient has no new cardiac complaints today. He has cardiomyopathy and dy ssynchrony because of his left bundle branch block. He would be a candidate for biventricular pacemaker. He has had a previous cardiac catheterization at [facility] approximately 10 years ago that showed nonobstructive disease. I think it ischemic cardiomyopathy has to be excluded and I feel the best way to proceed is with a pharmacologic nuclear stress test. If that is abnormal then he will require cardiac catheterization. Review of Systems Review of Systems: All systems reviewed & are unremarkable except as noted in HPI & below Nothing additional Physical Exam Physical Exam: General: no acute distress and stated age Head: normocephalic, no masses, lesions, tenderness or abnormalities Eyes: conjunctiva are pink and non-injected, sclera clear Neck: supple, no adenopathy, no bruits, normal jugular venous pulse, no hepatojugular reflux Chest: normal shape and normal respiratory effort Lungs: clear to auscultation and percussion Cardiac Exam: - regular rate & rhythm, no murmurs gallops or rubs - normal S1, normal S2 Pulses: 2(+) throughout Abdomen: abdomen soft, non-tender, no abnormal masses and no hepatosplenomegaly Musculoskeletal: no gait disturbance, no joint inflammation, no deforming arthritis Extremities: no edema and no cyanosis Neuro: grossly normal exam Results & Data Vital Signs (Past 12 Hours) Vital Signs Temp Pulse Pulse Resp BP Pulse Ox 10/29/18 07:18 36.4 C L 68 18 147/62 H 96 10/29/18 04:52 36.3 C L 71 20 131/73 93 10/29/18 00:25 78 10/28/18 23:53 36.4 C L 82 20 153/67 H 94 Laboratory Results Laboratory Results - last 24 hr 10/28/18 10/28/18 10/28/18 11:35 16:43 20:06 Sodium Potassium Chloride Carbon Dioxide Anion Gap BUN Creatinine Est Cr Clr Drug Dosing Est GFR ( Amer) Est GFR (Non-Af Amer) BUN/Creatinine Ratio Glucose POC Glucose 120 H 104 H 112 H Calcium 10/29/18 10/29/18 07:20 07:34 Sodium 137 Potassium 3.6 Chloride 103 Carbon Dioxide 28 Anion Gap 6.0 BUN 19 H Creatinine 1.17 Est Cr Clr Drug Dosing 37.0 Est GFR ( Amer) 66.9 Est GFR (Non-Af Amer) 57.7 BUN/Creatinine Ratio 16.0 Glucose 100 H POC Glucose 123 H Calcium 8.8 Medications Administered Current Inpatient Medications Acetaminophen (Tylenol) 650 mg PO Q4H PRN PRN Reason: pain/fever Stop: 11/26/18 12:12 Albuterol (Duoneb) 3 ml NEB Q4R PRN PRN Reason: shortness of breath Stop: 11/26/18 12:12 Amiodarone HCl (Cordarone) 200 mg PO BIDM [facility] Stop: 11/27/18 16:59 Last Admin: 10/29/18 08:28 Dose: 200 mg Documented by: Amoxicillin/Clavulanate Potassium (Augmentin 875mg) 1 tab PO BIDM [facility]; Protocol Stop: 11/03/18 16:59 Last Admin: 10/29/18 08:28 Dose: 1 tab Documented by: Aspirin (Ecotrin Ectab) 81 mg PO [facility] Stop: 11/27/18 08:59 Last Admin: 10/29/18 08:27 Dose: 81 mg Documented by: Atorvastatin [facility]cium ([facility]) [facility] Stop: 11/27/18 08:59 Last Admin: 10/29/18 08:27 Dose: 10 mg Documented by: Doxazosin Mesylate (Cardura) 2 mg PO [facility] Stop: 11/27/18 08:59 Last Admin: 10/29/18 08:27 Dose: 2 mg Documented by: Enoxaparin Sodium (Lovenox) 40 mg SQ Q24H [facility] Stop: 11/26/18 12:59 Last Admin: 10/28/18 13:37 Dose: 40 mg Documented by: Fluticasone Propionate (Flonase) 2 sprays NA BID [facility] Stop: 11/26/18 20:59 Last Admin: 10/29/18 08:27 Dose: 2 sprays Documented by: Lisinopril (Zestril) 40 mg PO [facility] Stop: 11/27/18 08:59 Last Admin: 10/28/18 09:26 Dose: 40 mg Documented by: Metoprolol Succinate (Toprol Xl) 25 mg PO [facility] Stop: 11/27/18 01:14 Last Admin: 10/29/18 08:28 Dose: 25 mg Documented by: Mirtazapine (Remeron Solutab) 45 mg PO [facility] Stop: 11/26/18 20:59 Last Admin: 10/28/18 20:45 Dose: 45 mg Documented by:
--- NOTE | 2018-10-29 12:59 | Hospitalist Progress Note ---
Date of Service October 29, 2018 Assessment & Plan (1) Pneumonia: Pneumonia possibly secondary to aspiration. Continue Augmentin. No hypoxia or hemodynamic instability is present and he is afebrile and doing well on this. Video swallow confirms aspiration of thin liquids. Coughing that is reported only occurs when patient attempts to drink liquids. Speech path recs. Continue pulmonary toilet with flutter valve, incentive spirometer and PRN nebulizers. (2) Elevated troponin: Likely secondary to structural heart disease in setting of infection. Blunted rise in troponin on serial examination. Cardiology is aware and considering further ischemic work-up with cardiac catheterization but first will be obtaining a nuclear stress test. Appreciate recommendations. (3) Nonischemic cardiomyopathy: History of nonischemic cardiopathy in the past with some nonobstructive cardiac disease seen at the time of diagnosis. Continue medical management of cardiac disease and potential cardiac cath per cardiology this admission. The patient is not overtly decompensated. Diuretics were discontinued. Amiodarone initiated. Continues to remain euvolemic. (4) Hypertension: Blood pressure at goal, hold lisinopril in setting of mild CJ. This is resolved-resume now. Continue Toprol-XL 25 mg p.o. every morning. (5) CJ (acute kidney injury): Secondary to diuretics in setting of lisinopril. Resolved. Restart home lisinopril and cont to avoid diuretics until Cardiology recommends this. (6) BPH (benign prostatic hyperplasia): Continue doxazosin (7) DVT prophylaxis: -SQ Lovenox Full code Disposition-pending further work-up [facility]ari [facility] Subject[facility] Patient is somewhat upset today because he is unclear why he has multiple doctors giving him the same options. This was explained and he verbalized understanding but is still appeared upset. Review of systems was negative except for some nonproductive cough and persistent shortness of breath. He is oxygenating well on room air and is ambulating without difficulty. Tolerating p.o. He is afebrile. Review of Systems Review of Systems: All systems reviewed & are unremarkable except as noted in HPI & below Physical Exam Physical Exam: CONSTITUTIONAL: thin, vitals as above, generally well- appearing EYES: normal conjunctivae, no scleral icterus ENT: MMM RESPIRATORY: clear to auscultation bilaterally, no crackles, rales or wheezes, normal respiratory effort CARDIOVASCULAR: regular rate and rhythm, S1 and 2 heard without murmurs, gallops or rubs, no JVD, no peripheral edema GASTROINTESTINAL: normal bowel sounds, soft, nontender, nondistended MUSCULOSKELETAL: strength 5/5 throughout, head is normocephalic and atraumatic SKIN: warm and dry NEUROLOGIC: CN 2-12 grossly intact, normal cognition and speech, no gross focal deficits. PSYCHIATRIC: alert cooperative and oriented to person, place and time. Results & Data Vital Signs (Past 12 Hours) Vital Signs Temp Pulse Pulse Resp BP Pulse Ox 10/29/18 11:30 36.9 C 71 18 128/69 92 10/29/18 08:00 65 10/29/18 07:18 36.4 C L 68 18 147/62 H 96 10/29/18 04:52 36.3 C L 71 20 131/73 93 Laboratory Results BMP 10/29/18 07:34 Sodium 137 Potassium 3.6 Chloride 103 Carbon Dioxide 28 BUN 19 H Creatinine 1.17 Glucose 100 H Calcium 8.8 Medications Administered Current Inpatient Medications Acetaminophen (Tylenol) 650 mg PO Q4H PRN PRN Reason: pain/fever Stop: 11/26/18 12:12 Albuterol (Duoneb) 3 ml NEB Q4R PRN PRN Reason: shortness of breath Stop: 11/26/18 12:12 Amiodarone [facility] ([facility]) [facility] Stop: 11/27/18 16:59 Last Admin: 10/29/18 08:28 Dose: 200 mg Documented by: Amoxicillin/Clavulanate Potassium (Augmentin 875mg) 1 tab PO BIDM [facility]; Protocol Stop: 11/03/18 16:59 Last Admin: 10/29/18 08:28 Dose: 1 tab Documented by: Aspirin (Ecotrin Ectab) [address] [facility] Stop: 11/27/18 08:59 Last Admin: 10/29/18 08:27 Dose: 81 mg Documented by: Atorvastatin Calcium (Lipitor) [address] [facility] Stop: 11/27/18 08:59 Last Admin: 10/29/18 08:27 Dose: 10 mg Documented by: Doxazosin Mesylate (Cardura) [address] [facility] Stop: 11/27/18 08:59 Last Admin: 10/29/18 08:27 Dose: 2 mg Documented by: Enoxaparin Sodium (Lovenox) 40 mg SQ Q24H [facility] Stop: 11/26/18 12:59 Last Admin: 10/28/18 13:37 Dose: 40 mg Documented by: Fluticasone Propionate (Flonase) 2 sprays NA BID [facility] Stop: 11/26/18 20:59 Last Admin: 10/29/18 08:27 Dose: 2 sprays Documented by: Lisinopril (Zestril) 40 mg PO QAM [facility] Stop: 11/27/18 08:59 Last Admin: 10/28/18 09:26 Dose: 40 mg Documented by: Metoprolol Succinate (Toprol Xl) 25 mg PO QAM [facility] Stop: 11/27/18 01:14 Last Admin: 10/29/18 08:28 Dose: 25 mg Documented by: Mirtazapine (Remeron Solutab) 45 mg PO HS [facility] Stop: 11/26/18 20:59 Last Admin: 10/28/18 20:45 Dose: 45 mg Documented by:
[2018-10-29] MEDS: ENOXAPARIN INJ 40 MG/0.4 ML SYR SQ SCH (14:20)
[2018-10-29] MEDS: MIRTAZAPINE SOLTAB 15 MG PO SCH (20:30)
[2018-10-30 07:52] LABS: Hemoglobin 11.4 g/dL (14.0-18.0); Mean Corpuscular Hgb Conc 33.5 g/dL (32-36); Mean Corpuscular Volume 95.8 fL (80-100); Mean Platelet Volume 10.9 fL (7.4-10.4); Platelet Count 194 K/uL (130-400); RDW Coefficient of Variation 12.3 % (11.5-14.5); RDW Standard Deviation 43.3 fL (36.4-46.3); Red Blood Count 3.55 M/uL (4.7-6.1); White Blood Count 8.42 K/uL (4.8-10.8)
[2018-10-30] MEDS ORDERED: REGADENOSON 0.4 MG/5 ML SYR IV ONE (08:08)
[2018-10-30 08:24] LABS: BUN Creatinine Ratio 13.5 (10-20); Creatinine Clr Calc Pharmacy 41.2 ml/min; Est GFR (African American) 77.1; Est GFR (Non-African American) 66.6; Potassium 3.6 mmol/L (3.5-5.1)
--- NOTE | 2018-10-30 08:50 | Fluoroscopy Report ---
FL video swallow CLINICAL HISTORY: 83 years-old Male presenting with r/o aspiration. TECHNIQUE: Video fluoroscopic evaluation of swallowing was performed in the AP and lateral projection s in conjunction with speech pathology. The patient was administered various textures, including nect ar-thick and thin liquid barium, a barium coated wafer, and barium pudding. COMPARISON: None. FINDINGS: Limited evaluation of the esophagus demonstrated tertiary contractions and disorganized peristalsis c ompatible with dysmotility. Normal oral transit, including normal tongue-soft palate seal. Slightly diminished soft palate-superi or constrictor muscle seal with evidence of mild nasopharyngeal regurgitation. This was intermittent. Normal oral transport/propulsion of the food bolus. Normal hyoid elevation and epiglottic deflection . Significant pharyngeal bolus residual depending on the administered texture, namely pudding consist ency and solids. Laryngeal penetration within the laryngeal vestibule with thin liquids. Intermittent aspiration of th in liquids. This was largely not silent aspiration and resulted in a spontaneous cough reflex. This w as helped to some degree by coughing and throat clearing. Chin tuck maneuver did not resolve episodic aspiration. No aspiration was observed with nectar thick liquid, pudding, or solids. Fluoroscopy dosage (mGy): Not available. Fluoroscopy time: 3.7 minutes. Number or time of high level fluoroscopy (HLF), digital spot, or digital subtraction images: 0. IMPRESSION: 1. Aspiration of thin liquids. 2. Significant esophageal dysmotility. This may represent presbyesophagus or esophageal spasm. 3. Intermittent mild nasopharyngeal regurgitation. 4. Please see the speech pathologist report for detailed findings and recommendations. Electronically signed by: Hemant Ho M.D. 10/30/2018 8:48 AM
[2018-10-30] MEDS: AMIODARONE 200 MG TAB PO SCH ×2 (10:23→17:43)
[2018-10-30] MEDS: ATORVASTATIN 10 MG TAB PO SCH (10:23)
[2018-10-30] MEDS: DOXAZosin MESYLATE TAB 2 MG TAB PO SCH (10:23)
[2018-10-30] MEDS: ASPIRIN 81 MG ECTAB PO SCH (10:23)
[2018-10-30] MEDS: FLUTICASONE PROPIONATE NA SPR 16 GM BTL SCH ×2 (10:23→20:59)
[2018-10-30] MEDS: METOPROLOL SUCC 25MG EXT REL TAB PO SCH (10:23)
[2018-10-30] MEDS: AMOXICILLIN/CLAVULANATE 875 MG TAB PO SCH ×2 (10:24→17:42)
--- NOTE | 2018-10-30 11:00 | Hospitalist Progress Note ---
Date of Service October 30, 2018 Assessment & Plan (1) Pneumonia: Pneumonia possibly secondary to aspiration. Continue Augmentin. No hypoxia or hemodynamic instability is present and he is afebrile and doing well on this. Video swallow confirms aspiration of thin liquids. Coughing that is reported only occurs when patient attempts to drink liquids. Speech path recs. Continue pulmonary toilet with flutter valve, incentive spirometer and PRN nebulizers. (2) Elevated troponin: Likely secondary to structural heart disease in setting of infection. Blunted rise in troponin on serial studies early in admission. Cardiology is aware and considering further ischemic work-up with cardiac catheterization in am as nuclear stress test was abnormal. Appreciate recommendations. (3) Nonischemic cardiomyopathy: History of nonischemic cardiopathy in the past with some nonobstructive cardiac disease seen at the time of diagnosis. The patient is not overtly decompensated. Diuretics were discontinued. Amiodarone initiated, may benefit from cardiac resynchronization therapy. Cath in am. (4) Hypertension: Blood pressure rising as lisinopril 40mg was held on admission in the setting of CJ. Continue Toprol-XL 25 mg p.o. every morning. (5) CJ (acute kidney injury): Secondary to diuretics in setting of lisinopril. Resolved. Restart home lisinopril and cont to avoid diuretics until Cardiology recommends this. (6) BPH (benign prostatic hyperplasia): Continue doxazosin (7) Moderate protein-calorie malnutrition: Nutrition recs appreciated, Boost BID started this admission. (8) DVT prophylaxis: -SQ Lovenox Full code Disposition-pending further work-up Yari aSrah DO [facility] Hospitalist Subjective reports feeling fine. Speech is watching him eat food. Video swallow yesterday revealed aspiration with thin liquids. Nuclear stress test was abnormal and Cardiology with plans to cath in am. Review of Systems Review of Systems: All systems reviewed & are unremarkable except as noted in HPI & below Physical Exam Physical Exam: CONSTITUTIONAL: thin, vitals as above, generally well- appearing EYES: normal conjunctivae, no scleral icterus ENT: MMM RESPIRATORY: clear to auscultation bilaterally, no crackles, rales or wheezes, normal respiratory effort CARDIOVASCULAR: regular rate and rhythm, S1 and 2 heard without murmurs, gallops or rubs, no JVD, no peripheral edema GASTROINTESTINAL: normal bowel sounds, soft, nontender, nondistended MUSCULOSKELETAL: strength 5/5 throughout, head is normocephalic and atraumatic SKIN: warm and dry NEUROLOGIC: CN 2-12 grossly intact, normal cognition and speech, no gross focal deficits. PSYCHIATRIC: alert cooperative and oriented to person, place and time. Results & Data Vital Signs (Past 12 Hours) Vital Signs Temp Pulse Pulse Resp BP Pulse Ox 10/30/18 10:20 77 20 135/64 95 10/30/18 07:24 36.5 C 73 18 136/59 L 91 10/30/18 07:13 71 10/30/18 05:11 36.8 C 76 20 123/62 93 10/30/18 00:00 36.6 C 72 20 139/71 95 Laboratory Results Short CBC 10/30/18 Range/Units 07:37 WBC 8.42 (4.8-10.8) K/uL Hgb 11.4 L (14.0-18.0) g/dL Hct 34.0 L (42-52) % Plt Count 194 (130-400) K/uL [facility] 10/30/18 07:37 Sodium 138 Potassium 3.6 Chloride 105 Carbon Dioxide 28 BUN 14 Creatinine 1.04 Glucose 87 Calcium 9.0 Medications Administered Current Inpatient Medications Acetaminophen (Tylenol) 650 mg PO Q4H PRN PRN Reason: pain/fever Stop: 11/26/18 12:12 Albuterol (Duoneb) 3 ml NEB Q4R PRN PRN Reason: shortness of breath Stop: 11/26/18 12:12 Amiodarone HCl (Cordarone) [facility] [place] Stop: 11/27/18 16:59 Last Admin: 10/30/18 10:23 Dose: 200 mg Documented by: Amoxicillin/Clavulanate Potassium (Augmentin 875mg) 1 tab [facility] [place]; Protocol Stop: 11/03/18 16:59 Last Admin: 10/30/18 10:24 Dose: 1 tab Documented by: Aspirin (Ecotrin Ectab) 81 mg PO [facility] Stop: 11/27/18 08:59 Last Admin: 10/30/18 10:23 Dose: 81 mg Documented by: Atorvastatin Calcium (Lipitor) 10 mg PO [facility] Stop: 11/27/18 08:59 Last Admin: 10/30/18 10:23 Dose: 10 mg Documented by: Doxazosin Mesylate (Cardura) 2 mg PO QAM [facility] Stop: 11/27/18 08:59 Last Admin: 10/30/18 10:23 Dose: 2 mg Documented by: Enoxaparin Sodium (Lovenox) 40 mg SQ Q24H [facility] Stop: 11/26/18 12:59 Last Admin: 10/29/18 14:20 Dose: 40 mg Documented by: Fluticasone Propionate (Flonase) 2 sprays NA BID [facility] Stop: 11/26/18 20:59 Last Admin: 10/30/18 10:23 Dose: 2 sprays Documented by: Lisinopril (Zestril) 40 mg PO [facility] [place] Stop: 11/27/18 08:59 Last Admin: 10/28/18 09:26 Dose: 40 mg Documented by: Metoprolol Succinate (Toprol Xl) 25 mg PO [facility] [place] Stop: 11/27/18 01:14 Last Admin: 10/30/18 10:23 Dose: 25 mg Documented by: Mirtazapine (Remeron Solutab) 45 mg PO [facility] Stop: 11/26/18 20:59 Last Admin: 10/29/18 20:30 Dose: 45 mg Documented by:
--- NOTE | 2018-10-30 11:25 | Myocardial Perfusion Study ---
Date of Service October 30, 2018 History: This is an 83-year-old male patient with smoking, left bundle branch block and a cardiomyopathy with severe LV dysfunction. He has been having ventricular ectopy and progressive shortness of breath. His previous heart catheterization in 2010 showed nonobstructive disease. Prior to proceeding to placement of a synchronizing device it was decided the patient needed a further ischemic work- up. Technique: The patient had a 2-day protocol. He received 23.2 mCi of intravenous tach 99M sestamibi followed by resting SPECT study. The following day the patient received adenosine according to protocol and then additional 20.6 mCi of intravenous tach 99M followed by gated SPECT study. The patient did not have symptoms during the adenosine infusion. His resting EKG showed a left bundle branch block and PVCs. During and following stress there were no significant EKG changes. When comparing the rest to stress sestamibi scans. The left ventricle was dilated both at rest and post stress. There is a large sized myocardial perfusion defect of the inferior myocardium on the stress images which is less evident on the resting studies and consistent with an area of moderate ischemia. Unfortunately the gated portion of the study was uninterpretable due to frequent ventricular ectopy. Summary: Findings are consistent with a dilated cardiomyopathy and evidence of myocardial ischemia of the inferior myocardium. These findings are most consistent with the distribution of the right coronary or left circumflex arteries.
--- NOTE | 2018-10-30 12:13 | Cardiology Progress Note ---
Date of Service October 30, 2018 Assessment & Plan (1) Nonischemic cardiomyopathy: The patient had a nuclear stress test today which is abnormal indicating inferior wall ischemia. I believe his ischemia needs to be worked up further. Some of his symptoms of shortness of breath may be related to angina. Prior to proceeding to any devices such as a biventricular pacemaker he will need to have a cardiac catheterization. I have explained to the patient and he is willing to proceed. He understands the options, risks and intent cardiac catheterization including the potential for catheter-based intervention. (2) Pneumonia: Swallowing study reveals aspiration. (3) NSVT (nonsustained ventricular tachycardia): Tolerating amiodarone so far, as mentioned above he will require cardiac catheterization as an ischemic work-up and potential etiology of his ventricular arrhythmias. Subjective The patient is working with a speech pathologist. His video swallow indicates that he is aspirating as a possible source for his pneumonia. He has completed a course of antibiotics and is currently occasions. He has no new cardiac complaints today. He did have an abnormal pharmacologic nuclear stress test. Review of Systems Review of Systems: All systems reviewed & are unremarkable except as noted in HPI & below No additional Physical Exam Physical Exam: General: no acute distress and stated age Head: normocephalic, no masses, lesions, tenderness or abnormalities Eyes: conjunctiva are pink and non-injected, sclera clear Neck: supple, no adenopathy, no bruits, normal jugular venous pulse, no hepatojugular reflux Chest: normal shape and normal respiratory effort Lungs: clear to auscultation and percussion Cardiac Exam: - regular rate & rhythm, no murmurs gallops or rubs - normal S1, normal S2 Pulses: 2(+) throughout Abdomen: abdomen soft, non-tender, no abnormal masses and no hepatosplenomegaly Musculoskeletal: no gait disturbance, no joint inflammation, no deforming arthritis Extremities: no edema and no cyanosis Neuro: grossly normal exam Results & Data Vital Signs (Past 12 Hours) Vital Signs Temp Pulse Pulse Resp BP Pulse Ox 10/30/18 11:47 36.5 C 93 H 18 153/63 H 95 10/30/18 10:20 77 20 135/64 95 10/30/18 07:24 36.5 C 73 18 136/59 L 91 10/30/18 07:13 71 10/30/18 05:11 36.8 C 76 20 123/62 93 Laboratory Results Laboratory Results - last 24 hr 10/29/18 10/29/18 10/29/18 11:20 16:13 20:35 WBC RBC Hgb Hct MCV MCH MCHC RDW Std Deviation RDW Coeff of Ty Plt Count MPV Sodium Potassium Chloride Carbon Dioxide Anion Gap BUN Creatinine Est Cr Clr Drug Dosing Est GFR ( Amer) Est GFR (Non-Af Amer) BUN/Creatinine Ratio Glucose POC Glucose 107 H 114 H 110 H Calcium 10/30/18 10/30/18 10/30/18 07:37 07:37 07:38 WBC 8.42 RBC 3.55 L Hgb 11.4 L Hct 34.0 L MCV 95.8 MCH 32.1 MCHC 33.5 RDW Std Deviation 43.3 RDW Coeff of Ty 12.3 Plt Count 194 MPV 10.9 H Sodium 138 Potassium 3.6 Chloride 105 Carbon Dioxide 28 Anion Gap 6.0 BUN 14 Creatinine 1.04 Est Cr Clr Drug Dosing 41.2 Est GFR ( Amer) 77.1 Est GFR (Non-Af Amer) 66.6 BUN/Creatinine Ratio 13.5 Glucose 87 POC Glucose 99 Calcium 9.0 10/30/18 11:09 WBC RBC Hgb Hct MCV MCH MCHC RDW Std Deviation RDW Coeff of Ty Plt Count MPV Sodium Potassium Chloride Carbon Dioxide Anion Gap BUN Creatinine Est Cr Clr Drug Dosing Est GFR ( Amer) Est GFR (Non-Af Amer) BUN/Creatinine Ratio Glucose POC Glucose 116 H Calcium Medications Administered Current Inpatient Medications Acetaminophen (Tylenol) 650 mg PO Q4H PRN PRN Reason: pain/fever Stop: 11/26/18 12:12 Albuterol (Duoneb) 3 ml NEB Q4R PRN PRN Reason: shortness of breath Stop: 11/26/18 12:12 Amiodarone HCl (Cordarone) 200 mg PO BIDM [facility] Stop: 11/27/18 16:59 Last Admin: 10/30/18 10:23 Dose: 200 mg Documented by: Amoxicillin/Clavulanate Potassium (Augmentin 875mg) 1 tab PO BIDM [facility]; Protocol Stop: 11/03/18 16:59 Last Admin: 10/30/18 10:24 Dose: 1 tab Documented by: Aspirin (Ecotrin Ectab) 81 mg PO QAM [facility] Stop: 11/27/18 08:59 Last Admin: 10/30/18 10:23 Dose: 81 mg Documented by: Atorvastatin Calcium (Lipitor) 10 mg PO QAM [facility] Stop: 11/27/18 08:59 Last Admin: 10/30/18 10:23 Dose: 10 mg Documented by: [facility]osin [facility] ([facility]) [facility] Stop: 11/27/18 08:59 Last Admin: 10/30/18 10:23 Dose: 2 mg Documented by: Enoxaparin Sodium (Lovenox) 40 mg SQ Q24H [facility] Stop: 11/26/18 12:59 Last Admin: 10/29/18 14:20 Dose: 40 mg Documented by: Fluticasone Propionate (Flonase) 2 sprays NA BID [facility] Stop: 11/26/18 20:59 Last Admin: 10/30/18 10:23 Dose: 2 sprays Documented by: Lisinopril (Zestril) [facility] Stop: 11/27/18 08:59 Last Admin: 10/28/18 09:26 Dose: 40 mg Documented by: Metoprolol Succinate (Toprol Xl) [facility] Stop: 11/27/18 01:14 Last Admin: 10/30/18 10:23 Dose: 25 mg Documented by: Mirtazapine (Remeron Solutab) 45 mg PO [facility] Stop: 11/26/18 20:59 Last Admin: 10/29/18 20:30 Dose: 45 mg Documented by:
[2018-10-30] MEDS: ENOXAPARIN INJ 40 MG/0.4 ML SYR SQ SCH (13:24)
[2018-10-30] MEDS: MIRTAZAPINE SOLTAB 15 MG PO SCH (21:00)
[2018-10-31 05:51] LABS: Hematocrit (blood only) 35.6 % (42-52); Hemoglobin 11.8 g/dL (14.0-18.0); Mean Corpuscular Hgb Conc 33.1 g/dL (32-36); Mean Corpuscular Volume 97.5 fL (80-100); Mean Platelet Volume 11.2 fL (7.4-10.4); Platelet Count 205 K/uL (130-400); RDW Coefficient of Variation 12.3 % (11.5-14.5); Red Blood Count 3.65 M/uL (4.7-6.1); White Blood Count 8.75 K/uL (4.8-10.8)
[2018-10-31 06:20] LABS: Est GFR (Non-African American) 68.1
[2018-10-31] MEDS: DOXAZosin MESYLATE TAB 2 MG TAB PO SCH (07:52)
[2018-10-31] MEDS: LISINOPRIL 40 MG TAB PO SCH (07:52)
[2018-10-31] MEDS: FLUTICASONE PROPIONATE NA SPR 16 GM BTL SCH ×2 (07:52→20:17)
[2018-10-31] MEDS: ATORVASTATIN 10 MG TAB PO SCH (07:52)
[2018-10-31] MEDS: METOPROLOL SUCC 25MG EXT REL TAB PO SCH (07:53)
[2018-10-31] MEDS: AMOXICILLIN/CLAVULANATE 875 MG TAB PO SCH ×2 (07:53→17:26)
[2018-10-31] MEDS: AMIODARONE 200 MG TAB PO SCH ×2 (07:53→17:26)
[2018-10-31] MEDS: ASPIRIN 81 MG ECTAB PO SCH (07:53)
[2018-10-31] MEDS ORDERED: MIDAZOLAM HCL 1 MG/ML 2ML VIAL ONE (11:43)
[2018-10-31] MEDS ORDERED: NITROGLYCERIN/D5W 100MCG/ML 20ML SYR ONE (11:44)
[2018-10-31] MEDS ORDERED: fentaNYL citrate 100 MCG/2 ML VIAL ONE (11:44)
[2018-10-31] MEDS ORDERED: NiCARDipine HCL INJ 2.5 MG/ML 10 ML AMP ONE (11:44)
[2018-10-31] MEDS ORDERED: HEPARIN (PORCINE) 1000 UNIT/ML 10 ML (CATH LAB USE ONLY) ONE (11:44)
--- NOTE | 2018-10-31 12:31 | Cardiac Catheterization ---
Date of Service October 31, 2018 Cardiac Cath Report Cardiac Cath Report History: This is an 83-year-old male patient with a history of a left bundle branch block and cardiomyopathy who had a abnormal nuclear perfusion study. Procedure: Coronary angiography Procedure summary: After informed consent was obtained the patient was taken to the cardiac catheterization lab where he was prepped and draped in usual manner for a right transradial approach. Preformed 5 [place] diagnostic catheters were utilized for the coronary angiograms. Following the procedure the patient was returned to his room in stable condition. ACC data: Start time 12:01 PM End time 12:12 PM Opening aortic pressure 98/36 Closing aortic pressure 99/39 Left ventricular pressurevalve not crossed Sedation 1 mg intravenous Versed IV fluid 32 cc normal saline Contrast 57 cc Optiray Fluoroscopy time 2.5 minutes Radiation 364 mGy DAP 2338 mGy/m Right dominant system AUC score 7 Coronary angiography: Selective injections of the right coronary artery revealed to be dominant. There is minor nonobstructive coronary artery disease of 1 of the PDA branches otherwise the artery is widely patent. Selective injections of the left coronary artery reveal the left main trunk to be widely patent. The LAD trifurcates into a large first septal and then several large diagonal branches which reach only to the apex of the heart. The left circumflex consists principally of a large high first marginal which supplies the majority of the lateral myocardium and apex there is a second smaller marginal branch and then several small marginal branches supplying some of the posterior myocardium. The left circumflex artery is widely patent. Summary: The patient is widely patent coronary anatomy. Recommendations: The patient has a nonischemic cardiomyopathy which should be treated medically and possibly a resynchronization device.
[2018-10-31] MEDS: SODIUM CHLORIDE 0.9% 1000ML 1,000 ML IV SCH (12:46)
[2018-10-31] MEDS: ENOXAPARIN INJ 40 MG/0.4 ML SYR SQ SCH (15:18)
--- NOTE | 2018-10-31 16:32 | Hospitalist Progress Note ---
Date of Service October 31, 2018 Assessment & Plan (1) Pneumonia: Pneumonia possibly secondary to aspiration. Continue Augmentin. Video swallow confirms aspiration of thin liquids. Coughing that is reported only occurs when patient attempts to drink liquids. Speech path recs. Continue pulmonary toilet with flutter valve, incentive spirometer and PRN nebulizers. Clinically better (2) Elevated troponin: Likely secondary to structural heart disease in setting of infection. Cardiology is aware and considering further ischemic work-up with cardiac catheterization in am as nuclear stress test was abnormal. Troponins were mildly elevated Status post negative cardiac Will require EP access developer follow-up for possible pacemaker/ICD implantation (3) Nonischemic cardiomyopathy: History of nonischemic cardiopathy in the past with some nonobstructive cardiac disease seen at the time of diagnosis. The patient is not overtly decompensated. Diuretics were discontinued. Amiodarone initiated, may benefit from cardiac resynchronization therapy. Cardiac cath did not show any significant obstruction Electrophysiology follow-up for possible ICD/pacemaker placement (4) Hypertension: Blood pressure rising as lisinopril 40mg was held on admission in the setting of CJ. Continue Toprol-XL 25 mg p.o. every morning. (5) CJ (acute kidney injury): Secondary to diuretics in setting of lisinopril. Resolved. Restart home lisinopril and cont to avoid diuretics until Cardiology recommends this. (6) BPH (benign prostatic hyperplasia): Continue doxazosin (7) Moderate protein-calorie malnutrition: Nutrition recs appreciated, Boost BID started this admission. (8) DVT prophylaxis: -SQ Lovenox Full code Disposition-pending further work-up Subjective 10/31 The patient was seen and examined in telemetry unit Patient is an 83-year-old male with history of hypertension, BPH, prediabetes, COPD, tobacco use, coronary artery disease and other problems presents with history of shortness of breath, cough which have been slowly progressively worsening He is a status post cardiac cath today Denies any symptoms except weakness following the procedure Review of Systems Review of Systems: All systems reviewed and are unremarkable except as noted below Constitutional: + fatigue, + malaise and + weakness Respiratory: no cough and no dyspnea Cardiovascular: no chest pain Neurologic: Generally weak and lethargic Physical Exam Physical Exam: Lying in bed comfortably without any symptoms Constitutional: + thin and + cachectic; no acute distress Eyes: PERRL, conjunctivae normal, anicteric sclerae ENMT: external ear and nose normal, oropharynx normal Neck: trachea midline, no thyromegaly Respiratory: normal respiratory effort; no respiratory distress Auscultation: + diminished lung sounds Cardiovascular: Rate/Rhythm: regular rate and regular rhythm Vessels: normal peripheral pulses Extremities: no edema Gastrointestinal (Abdomen): Inspection/Auscultation: abdomen normal to inspection Percussion/Palpation: abdomen soft; abdomen nontender Skin: no rashes, warm and dry Neurologic: PERRL, EOMI, accommodation nl, no face palsy, no dysarthria Psychiatric: A+Ox3, euthymic affect Results & Data Vital Signs (Past 12 Hours) Vital Signs Temp Pulse Pulse Resp BP BP Pulse Ox 10/31/18 15:37 36.6 C 62 20 145/63 H 95 10/31/18 14:42 36.8 C 64 16 125/68 96 10/31/18 13:42 36.6 C 64 20 125/69 96 10/31/18 13:12 36.7 C 64 18 128/68 96 10/31/18 12:44 36.6 C 62 20 125/68 95 10/31/18 07:30 67 10/31/18 06:50 36.5 C 67 18 144/65 H 94 Laboratory Results Short CBC 10/31/18 Range/Units 05:35 WBC 8.75 (4.8-10.8) K/uL Hgb 11.8 L (14.0-18.0) g/dL Hct 35.6 L (42-52) % Plt Count 205 (130-400) K/uL BMP 10/31/18 05:35 Creatinine 1.02 Medications Administered Current Inpatient Medications Acetaminophen (Tylenol) 650 mg PO Q4H PRN PRN Reason: pain/fever Stop: 11/26/18 12:12 Albuterol (Duoneb) 3 ml NEB Q4R PRN PRN Reason: shortness of breath Stop: 11/26/18 12:12 Amiodarone HCl (Cordarone) 200 mg PO BIDM [facility] Stop: 11/27/18 16:59 Last Admin: 10/31/18 07:53 Dose: 200 mg Documented by: Amoxicillin/Clavulanate Potassium (Augmentin 875mg) 1 tab PO BIDM [facility]; Protocol Stop: 11/03/18 16:59 Last Admin: 10/31/18 07:53 Dose: 1 tab Documented by: Aspirin (Ecotrin Ectab) 81 mg PO [facility] Stop: 11/27/18 08:59 Last Admin: 10/31/18 07:53 Dose: 81 mg Documented by: Atorvastatin Calcium (Lipitor) 10 mg PO [facility] Stop: 11/27/18 08:59 Last Admin: 10/31/18 07:52 Dose: 10 mg Documented by: Doxazosin Mesylate (Cardura) 2 mg PO [facility] Stop: 11/27/18 08:59 Last Admin: 10/31/18 07:52 Dose: 2 mg Documented by: Enoxaparin Sodium (Lovenox) 40 mg SQ Q24H [facility] Stop: 11/26/18 12:59 Last Admin: 10/31/18 15:18 Dose: 40 mg Documented by: Fluticasone Propionate (Flonase) 2 sprays NA BID [facility] Stop: 11/26/18 20:59 Last Admin: 10/31/18 07:52 Dose: 2 sprays Documented by: Sodium Chloride (Nss 1000ml) 1,000 mls @ 70 mls/hr IV .[id number] [facility] Stop: 11/30/18 12:29 Last Admin: 10/31/18 12:46 Dose: 70 mls/hr Documented by: Lisinopril (Zestril) 40 mg PO [facility] Stop: 11/27/18 08:59 Last Admin: 10/31/18 07:52 Dose: 40 mg Documented by: Metoprolol Succinate (Toprol Xl) 25 mg PO [facility] Stop: 11/27/18 01:14 Last Admin: 10/31/18 07:53 Dose: 25 mg Documented by: Mirtazapine (Remeron Solutab) 45 mg PO [facility] Stop: 11/26/18 20:59 Last Admin: 10/30/18 21:00 Dose: 45 mg Documented by:
[2018-10-31] MEDS: MIRTAZAPINE SOLTAB 15 MG PO SCH (20:17)
[2018-11-01] MEDS: SODIUM CHLORIDE 0.9% 1000ML 1,000 ML IV SCH (02:40)
[2018-11-01 05:52] LABS: Basophils # (auto) 0.05 K/uL (0-0.2); Basophils % (auto) 0.6 %; Eosinophils # (auto) 0.37 K/uL (0-0.5); Eosinophils % (auto) 4.4 %; Hemoglobin 11.3 g/dL (14.0-18.0); Immature Granulocytes # (auto) 0.02 K/uL (0.00-0.02); Immature Granulocytes % (auto) 0.2 %; Lymphocytes % (auto) 13.2 %; Mean Corpuscular Hgb Conc 33.2 g/dL (32-36); Mean Corpuscular Volume 96.6 fL (80-100); Mean Platelet Volume 10.9 fL (7.4-10.4); Monocytes # (auto) 0.69 K/uL (0.11-0.59); Monocytes % (auto) 8.3 %; Neutrophils # (auto) 6.09 K/uL (1.4-6.5); Neutrophils % (auto) 73.3 %; Platelet Count 191 K/uL (130-400); RDW Coefficient of Variation 12.4 % (11.5-14.5); RDW Standard Deviation 43.5 fL (36.4-46.3); Red Blood Count 3.52 M/uL (4.7-6.1); White Blood Count 8.32 K/uL (4.8-10.8)
[2018-11-01 06:25] LABS: Calcium 8.7 mg/dl (8.5-10.1); Creatinine Clr Calc Pharmacy 39.8 ml/min; Est GFR (African American) 79.9; Est GFR (Non-African American) 68.9; Potassium 3.7 mmol/L (3.5-5.1)
--- NOTE | 2018-11-01 08:48 | Cardiology Progress Note ---
Date of Service November 01, 2018 Assessment & Plan (1) Nonischemic cardiomyopathy: The patient has widely patent coronary anatomy by cardiac catheterization yesterday. With his reduced ejection fraction and left bundle branch block he would benefit from resynchronization with a biventricular pacemaker/ICD. I spoke with electrophysiology. Unfortunately the schedule would not allow him to have this procedure completed this hospital admission. He is clinically stable I believe he can be discharged and be seen next week as an outpatient and have the procedure scheduled electively. (2) Pneumonia: Swallowing study reveals aspiration. (3) NSVT (nonsustained ventricular tachycardia): Continue amiodarone currently. Subjective The patient had no new complaints. He denies shortness of breath or chest pain. He is eating breakfast. Review of Systems Review of Systems: All systems reviewed & are unremarkable except as noted in HPI & below Nothing additional Physical Exam Physical Exam: General: no acute distress and stated age Head: normocephalic, no masses, lesions, tenderness or abnormalities Eyes: conjunctiva are pink and non-injected, sclera clear Neck: supple, no adenopathy, no bruits, normal jugular venous pulse, no hepatojugular reflux Chest: normal shape and normal respiratory effort Lungs: clear to auscultation and percussion Cardiac Exam: - regular rate & rhythm, no murmurs gallops or rubs - normal S1, normal S2 Pulses: 2(+) throughout Abdomen: abdomen soft, non-tender, no abnormal masses and no hepatosplenomegaly Musculoskeletal: no gait disturbance, no joint inflammation, no deforming arthritis Extremities: no edema and no cyanosis Neuro: grossly normal exam Results & Data Vital Signs (Past 12 Hours) Vital Signs Temp Pulse Resp BP Pulse Ox 11/01/18 07:10 36.9 C 70 20 156/60 H 92 11/01/18 03:29 37.1 C 71 16 149/69 H 92 11/01/18 00:22 37.1 C 70 16 141/55 H 92 Laboratory Results Laboratory Results - last 24 hr 10/31/18 11/01/18 11/01/18 11:17 05:37 05:37 WBC 8.32 RBC 3.52 L Hgb 11.3 L Hct 34.0 L MCV 96.6 MCH 32.1 MCHC 33.2 RDW Std Deviation 43.5 RDW Coeff of Ty 12.4 Plt Count 191 MPV 10.9 H Immature Gran % (Auto) 0.2 Neut % (Auto) 73.3 Lymph % (Auto) 13.2 [place] % (Auto) 8.3 Eos % (Auto) 4.4 Baso % (Auto) 0.6 Immature Gran # (Auto) 0.02 Neut # (Auto) 6.09 Lymph # (Auto) 1.10 L [place] # (Auto) 0.69 H Eos # (Auto) 0.37 Baso # (Auto) 0.05 Sodium 139 Potassium 3.7 Chloride 107 Carbon Dioxide 29 Anion Gap 4.0 BUN 11 Creatinine 1.01 Est Cr Clr Drug Dosing 39.8 Est GFR ( Amer) 79.9 Est GFR (Non-Af Amer) 68.9 BUN/Creatinine Ratio 11.0 Glucose 82 POC Glucose 109 H Calcium 8.7 Magnesium 2.0 11/01/18 07:08 WBC RBC Hgb Hct MCV MCH MCHC RDW Std Deviation RDW Coeff of Ty Plt Count MPV Immature Gran % (Auto) Neut % (Auto) Lymph % (Auto) [place] % (Auto) Eos % (Auto) Baso % (Auto) Immature Gran # (Auto) Neut # (Auto) Lymph # (Auto) [place] # (Auto) Eos # (Auto) Baso # (Auto) Sodium Potassium Chloride Carbon Dioxide Anion Gap BUN Creatinine Est Cr Clr Drug Dosing Est GFR ( Amer) Est GFR (Non-Af Amer) BUN/Creatinine Ratio Glucose POC Glucose 93 Calcium Magnesium Medications Administered Current Inpatient Medications Acetaminophen (Tylenol) 650 mg PO Q4H PRN PRN Reason: pain/fever Stop: 11/26/18 12:12 Albuterol (Duoneb) 3 ml NEB Q4R PRN PRN Reason: shortness of breath Stop: 11/26/18 12:12 Amiodarone HCl (Cordarone) 200 mg PO BIDM [facility] Stop: 11/27/18 16:59 Last Admin: 10/31/18 17:26 Dose: 200 mg Documented by: Amoxicillin/Clavulanate Potassium (Augmentin 875mg) 1 tab PO BIDM [facility]; Protocol Stop: 11/03/18 16:59 Last Admin: 10/31/18 17:26 Dose: 1 tab Documented by: Aspirin (Ecotrin Ectab) 81 mg PO QAM [facility] Stop: 11/27/18 08:59 Last Admin: 10/31/18 07:53 Dose: 81 mg Documented by: Atorvastatin Calcium (Lipitor) [facility] Stop: 11/27/18 08:59 Last Admin: 10/31/18 07:52 Dose: 10 mg Documented by: Doxazosin Mesylate (Cardura) 2 mg PO QAM [facility] Stop: 11/27/18 08:59 Last Admin: 10/31/18 07:52 Dose: 2 mg Documented by: Enoxaparin Sodium (Lovenox) 40 mg SQ Q24H [facility] Stop: 11/26/18 12:59 Last Admin: 10/31/18 15:18 Dose: 40 mg Documented by: Fluticasone Propionate (Flonase) 2 sprays NA BID [facility] Stop: 11/26/18 20:59 Last Admin: 10/31/18 20:17 Dose: 2 sprays Documented by: Lisinopril (Zestril) 40 mg [facility] Stop: 11/27/18 08:59 Last Admin: 10/31/18 07:52 Dose: 40 mg Documented by: Metoprolol Succinate (Toprol Xl) 25 [facility] Stop: 11/27/18 01:14 Last Admin: 10/31/18 07:53 Dose: 25 mg Documented by: Mirtazapine (Remeron Solutab) 45 mg PO [facility] Stop: 11/26/18 20:59 Last Admin: 10/31/18 20:17 Dose: 45 mg Documented by:
[2018-11-01] MEDS ORDERED: AMIODARONE 200 MG TAB PO SCH (09:00)
[2018-11-01] MEDS: DOXAZosin MESYLATE TAB 2 MG TAB PO SCH (09:02)
[2018-11-01] MEDS: ATORVASTATIN 10 MG TAB PO SCH (09:02)
[2018-11-01] MEDS: METOPROLOL SUCC 25MG EXT REL TAB PO SCH (09:02)
[2018-11-01] MEDS: AMOXICILLIN/CLAVULANATE 875 MG TAB PO SCH (09:02)
[2018-11-01] MEDS: ASPIRIN 81 MG ECTAB PO SCH (09:02)
[2018-11-01] MEDS: LISINOPRIL 40 MG TAB PO SCH (09:02)
[2018-11-01] MEDS: FLUTICASONE PROPIONATE NA SPR 16 GM BTL SCH (09:03)
[2018-11-01] MEDS: AMIODARONE 200 MG TAB PO SCH (09:04)
--- NOTE | 2018-11-01 13:51 | Hospitalist Progress Note ---
Date of Service November 01, 2018 Assessment & Plan (1) Pneumonia: Pneumonia possibly secondary to aspiration. Continue Augmentin. Video swallow confirms aspiration of thin liquids. Coughing that is reported only occurs when patient attempts to drink liquids. Speech path recs. Continue pulmonary toilet with flutter valve, incentive spirometer and PRN nebulizers. Clinically better We will continue antibiotic for about 10 days in total (2) Elevated troponin: Likely secondary to structural heart disease in setting of infection. Cardiology is aware and considering further ischemic work-up with cardiac catheterization in am as nuclear stress test was abnormal. Troponins were mildly elevated Status post negative cardiac catheterization Will require EP law firm receptionist follow-up for possible pacemaker/ICD implantation Outpatient appointment with EP law firm receptionist on Monday next (3) Nonischemic cardiomyopathy: History of nonischemic cardiopathy in the past with some nonobstructive cardiac disease seen at the time of diagnosis. The patient is not overtly decompensated. Diuretics were discontinued. Amiodarone initiated, may benefit from cardiac resynchronization therapy. Cardiac cath did not show any significant obstruction Electrophysiology follow-up for possible ICD/pacemaker placement (4) Hypertension: Blood pressure rising as lisinopril 40mg was held on admission in the setting of CJ. Continue Toprol-XL 25 mg p.o. every morning. (5) CJ (acute kidney injury): Secondary to diuretics in setting of lisinopril. Resolved. Restart home lisinopril and cont to avoid diuretics until Cardiology recommends this. (6) BPH (benign prostatic hyperplasia): Continue doxazosin (7) Moderate protein-calorie malnutrition: Nutrition recs appreciated, Boost BID started this admission. (8) DVT prophylaxis: -SQ Lovenox Full code Discussed the law firm receptionist Discharging this afternoon Follow-up with EP law firm receptionist as an outpatient Subjective 10/31 The patient was seen and examined in telemetry unit Patient is an 83-year-old male with history of hypertension, BPH, prediabetes, COPD, tobacco use, coronary artery disease and other problems presents with history of shortness of breath, cough which have been slowly progressively worsening He is a status post cardiac cath today Denies any symptoms except weakness following the procedure 11/01 The patient was seen and examined in telemetry unit He has been feeling a lot better except some weakness Denies any cardiac symptoms Monitor did not show any arrhythmia Discharge home today Review of Systems Review of Systems: All systems reviewed and are unremarkable except as noted below Constitutional: + fatigue, + malaise and + weakness Neurologic: Generally weak and lethargic Physical Exam Physical Exam: No apparent distress at rest Constitutional: + thin and + cachectic; no acute distress Eyes: PERRL, conjunctivae normal, anicteric sclerae ENMT: external ear and nose normal, oropharynx normal Neck: trachea midline, no thyromegaly Respiratory: normal respiratory effort; no respiratory distress Auscultation: + diminished lung sounds Cardiovascular: Rate/Rhythm: regular rate and regular rhythm Extremities: no edema Gastrointestinal (Abdomen): Inspection/Auscultation: abdomen normal to inspection Percussion/Palpation: abdomen soft; abdomen nontender Musculoskeletal: No acute arthritis Skin: no rashes, warm and dry Neurologic: PERRL, EOMI, accommodation nl, no face palsy, no dysarthria Alert, awake and oriented x3 Psychiatric: A+Ox3, euthymic affect Results & Data Vital Signs (Past 12 Hours) Vital Signs Temp Pulse Resp BP Pulse Ox 11/01/18 11:07 37.1 C 67 16 135/64 92 11/01/18 07:10 36.9 C 70 20 156/60 H 92 11/01/18 03:29 37.1 C 71 16 149/69 H 92
[2018-11-01] MEDS: ENOXAPARIN INJ 40 MG/0.4 ML SYR SQ SCH (14:41)
--- NOTE | 2018-11-02 07:29 | Discharge Summary ---
Date of Service November 02, 2018 Admission HPI Per Admitting Provider 83-year-old male who presents the ED with shortness of breath and cough. Patient reports chronic shortness of breath over the past several months which has slowly been worsening. He reports acute worsening of the shortness of breath over the past couple of days. He has had a cough productive for white and yellow sputum at times. Cough is somewhat chronic as well. He reports worsening of the shortness of breath and cough when he lies flat at night. No chest pain. He denies fevers and chills. No lightheadedness, dizziness, diaphoresis, syncopal events. Patient reports his appetite is fair and has been trying to put on some weight. He reports a intentional 10 pound weight gain in the past 6 months. He does note some occasional coughing with eating. No lower extremity edema. He denies abdominal pain, nausea, vomiting, diarrhea. No urinary symptoms. In the ED, troponin is mildly elevated at 0.086. EKG shows an unchanged LBBB. CTA chest is negative for pulmonary embolism however shows left lower lobe patchy opacity. Patient is saturating well on room air. He was given a nebulizer and full dose aspirin. He reports improvement in his symptoms since receiving the neb. Admission Exam Per Admitting Provider Constitutional: + thin and + cachectic Vitals as above Eyes: PERRL, conjunctivae normal, anicteric sclerae ENMT: external ear and nose normal, oropharynx normal Respiratory: normal respiratory effort; no respiratory distress Auscultation: + diminished lung sounds Cardiovascular: Rate/Rhythm: regular rate and regular rhythm Vessels: normal peripheral pulses Extremities: no edema Gastrointestinal (Abdomen): normal bowel sounds, soft, nontender, no hepatosplenomegaly Musculoskeletal: no cyanosis or clubbing, extremities motor strength 5/5 Skin: no rashes, warm and dry Neurologic: PERRL, EOMI, accommodation nl, no face palsy, no dysarthria Psychiatric: A+Ox3, euthymic affect Principal Diagnosis Pneumonia, nonischemic cardiomyopathy 30 to 35%, status post cardiac cath showed widely patent coronary anatomy, hypertension Discharge Exam Constitutional + thin and + cachectic; no acute distress Eyes PERRL, conjunctivae normal, anicteric sclerae ENMT external ear and nose normal, oropharynx normal Neck trachea midline, no thyromegaly Respiratory normal respiratory effort; no respiratory distress Auscultation: + diminished lung sounds Cardiovascular Rate/Rhythm: regular rate and regular rhythm Vessels: normal peripheral pulses Extremities: no edema Gastrointestinal (Abdomen) Inspection/Auscultation: abdomen normal to inspection Percussion/Palpation: abdomen soft; abdomen nontender Skin no rashes, warm and dry Neurologic PERRL, EOMI, accommodation nl, no face palsy, no dysarthria Psychiatric A+Ox3, euthymic affect Discharge Data Allergies Allergy/AdvReac Type Severity Reaction Status Date / Time No Known Allergies Allergy Unknown Verified 10/27/18 09:12 Consultations 10/27/18 10:03 ED Decision to Admit Stat 10/27/18 12:13 Consult Case Management - Discharge Planning Routine 10/27/18 15:00 Consult Cardiology Routine Procedures Performed Operation Date: 10/29/18 13:00 <No data on this case meets the specified criteria> Operation Date: 10/31/18 08:00 Actual Procedures p Cath, Coronaries ONLY (no LV) - Roel Kidd, Ordered Studies 10/27/18 10:02 CT angio chest PE protocol Stat 10/29/18 08:57 CL Cath Imgs for PACS use only Routine 10/29/18 13:30 FL video swallow Routine 10/31/18 11:37 CL Cath Imgs for PACS use only Routine Hospital Course (1) Pneumonia: Pneumonia possibly secondary to aspiration. Continue Augmentin. Video swallow confirms aspiration of thin liquids. Coughing that is reported only occurs when patient attempts to drink liquids. Speech path recs. Continue pulmonary toilet with flutter valve, incentive spirometer and PRN nebulizers. Clinically better We will continue antibiotic for about 10 days in total (2) Elevated troponin: Likely secondary to structural heart disease in setting of infection. Cardiology is aware and considering further ischemic work-up with cardiac catheterization in am as nuclear stress test was abnormal. Troponins were mildly elevated Status post negative cardiac catheterization Will require EP banquet cook follow-up for possible pacemaker/ICD implantation Outpatient appointment with EP banquet cook on Monday next (3) Nonischemic cardiomyopathy: History of nonischemic cardiopathy in the past with some nonobstructive cardiac disease seen at the time of diagnosis. The patient is not overtly decompensated. Diuretics were discontinued. Amiodarone initiated, may benefit from cardiac resynchronization therapy. Cardiac cath did not show any significant obstruction Electrophysiology follow-up for possible ICD/pacemaker placement (4) Hypertension: Blood pressure rising as lisinopril 40mg was held on admission in the setting of CJ. Continue Toprol-XL 25 mg p.o. every morning. (5) CJ (acute kidney injury): Secondary to diuretics in setting of lisinopril. Resolved. Restart home lisinopril and cont to avoid diuretics until Cardiology recommends this. (6) BPH (benign prostatic hyperplasia): Continue doxazosin (7) Moderate protein-calorie malnutrition: Nutrition recs appreciated, Boost BID started this admission. (8) DVT prophylaxis: -SQ Lovenox Full code Discussed the banquet cook Discharging this afternoon Follow-up with EP banquet cook as an outpatient Total Time Total Time Spent Total Time Spent (In Minutes): 35 minutes Total Time Includes: Examination of the Patient, Discharge Planning, Medication Reconciliation and Communication With Other Providers Discharge Plan Discharge Items Patient Disposition: Home - Self-Care Reason For Visit: SOB Discharge Diagnosis: Pneumonia, nonischemic cardiomyopathy 30 to 35%, status post cardiac cath showed widely patent coronary anatomy, hypertension Condition: Fair Discharge Goals: Decrease discomfort and Improve function Activity: Resume your previous activity Non-emergency contact: Primary Care Provider Call non-emergency contact if: you have any medication questions and your symptoms worsen Follow-up/Referrals: Taylor Lopez DO [Primary Care Provider] - 11/07/18 12:45 pm Marilou Zamorano DO [Physician] - 11/09/18 10:00 am Diet: Heart Healthy Fluids: 1500ml (6 cups) Diet Texture: Dental soft (bite-sized) Addtl Provider Instructions: Please take precaution to avoid falls Prescriptions: New amiodarone 200 mg Tablet 200 mg PO DAILY 30 Days Qty: 30 RF: 0 amoxicillin-pot clavulanate 875-125 mg Tablet 1 tab PO BIDM 4 Days Qty: 8 RF: 0 Continued atorvastatin 10 mg tablet 10 mg PO QAM RF: 0 aspirin 81 mg Tablet,Delayed Release (Dr/Ec) 81 mg PO QAM RF: 0 mirtazapine 45 mg tablet 45 mg PO HS RF: 0 metoprolol succinate 25 mg tablet extended release 24 hr 25 mg PO QAM RF: 0 lisinopril 40 mg tablet 40 mg PO QAM RF: 0 fluticasone propionate 50 mcg/actuation spray,suspension 2 spray intranasal BID RF: 0 doxazosin 2 mg tablet 2 mg PO QAM RF: 0 Stand-Alone Forms: [facility] Discharge Orders: Discharge Order (Routine); Ordered 11/01/18 Ordered By: Jesus Alberto Malik Admission Data Admit Date/Time: 10/27/18 10:51 Attending Provider: Jesus Alberto Malik Admit Provider: Giancarlo Moreno Primary Care Provider: Taylor Lopez Other Providers: Samuel Henderson Service: Telemetry Medical Other Interventions: Discharge Summary Assessment (RN) Last Done: 11/01/18 14:02 DC Date/Time DO NOT enter until pt leaves facility: 11/01/18 16:00
--- NOTE | 2018-11-05 05:59 | Coding Query ---
CODING QUERY To promote full compliance with coding requirements relating to patient care, provider participation is requested in all cases of certified medical records coder uncertainty. Please assist us with the question(s) below: Coding Question(s): The H&P Documents, "Echo shows reduced EF. Due to concerns for possible acute CHF, will change IV antibiotics to PO to decrease administration of IVF. Will place patient on PO Augmentin and doxycycline.", and there is IV Lasix given. The Cardiology Consultation documents, "congestive heart failure decompensation". Later on in the record and on the Discharge Summary, documentation shows, "The patient is not overtly decompensated. Diuretics were discontinued. ". Please clarify below, in your clinical opinion regarding the Possible Acute CHF and Congestive Heart Failure Decompensation. ( ) There was initial possible Acute CHF treated. Please specify below the type: ( ) Possible Acute Systolic CHF ( ) Possible Acute Diastolic CHF ( ) Possible Acute Systolic and Diastolic CHF (+ ) There was NO Acute CHF Physician's Response(s): Thank you Jaqueline Emmanuel Principal Diagnosis: "that condition established after study, to be chiefly responsible for occasioning the admission of the patient to the hospital for care." Co-Existing Principal Diagnosis: "when two or more diagnoses equally meet the criteria for principal diagnosis as determined by the circumstances of admission, diagnostic work up, and/or therapy provided, and the Alphabetic Index, Tabular List, or another coding guideline does not provide sequencing direction, any one of the diagnoses may be sequenced first." "When the physician has documented what appears to be a current diagnosis in the body of the record, but has not included the diagnosis in the final diagnostic statement, the physician should be asked whether the diagnosis should be added." (Source Coding [facility] 2 QTR90. p3-4) GUILLERMO
== END 2018-11-01 16:00 | disposition home or self-care (01) | DRG 286 ==
LOC: ED 08:32 → SUATTDRO 10:51 → 2W 10:51 → 2S 10-31 12:44
PROC: CLB.CCO (2018-10-31 08:00)

== ENCOUNTER 2018-11-21 07:02 | Observation (INO) ==
--- NOTE | 2018-11-16 15:33 | Anesthesiology Consultation ---
Date of Service November 16, 2018 Assessment & Plan (1) Encounter for pre-operative examination: Chart Review Chart Review: Acceptable Risk for Surgery and Patient NOT seen in Pre Admission Testing History Surgery Operation Date: 11/21/18 08:00 Proposed Procedures p ICD Biventricular Implant Anesthesia-[employer] vendor needed - Marilou Zamorano DO Height/Weight Height: 5 ft 9 in Weight: 53.977 kg Allergies Allergy/AdvReac Type Severity Reaction Status Date / Time No Known Allergies Allergy Unknown Verified 11/15/18 10:52 Medications Home Medications Medication Instructions Recorded Confirmed Last Taken aspirin 81 mg PO QDL 10/27/18 11/15/18 10/27/18 atorvastatin 10 mg PO QDL 10/27/18 11/15/18 10/27/18 doxazosin 2 mg PO QDL 10/27/18 11/15/18 10/27/18 fluticasone propionate 2 spray INTRANASAL BID 10/27/18 11/15/18 10/26/18 lisinopril 40 mg PO QDL 10/27/18 11/15/18 10/27/18 metoprolol succinate 25 mg PO QDL 10/27/18 11/15/18 10/27/18 mirtazapine 45 mg PO HS 10/27/18 11/15/18 10/26/18 amiodarone 200 mg PO QDL 11/15/18 11/15/18 Unknown Past Medical History Medical History Nonischemic cardiomyopathy (Chronic) EF 37% per 10/27/18 echo. 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 11/01/18 = widely patent coronary arteries History of total left hip replacement (Chronic) History of tonsillectomy and adenoidectomy (Chronic) History of cataract surgery (Chronic) BILATERAL History of appendectomy (Chronic) History of cardiac cath SEPTEMBER 2018 AT [facility] NO STENTS History of colonoscopy Social History Smoking Status: Former smoker tobacco type: cigarettes Smoking cigarettes per day: 20 Do You Dip or Chew Tobacco: No Smoking End Date: QUIT 2015 Hx Alcohol Use: No Hx Substance Use: No substance use type: does not use Testing Laboratory Results 11/09/18 WBC: 9.98 H/H: 13.9/41.9 PLATELETS: 237 SODIUM: 139 POTASSIUM: 4.8 CHLORIDE: 100 CO2: 27 BUN: 11 CREATININE: 1.2 GLUCOSE: 119 10/27/18 PT: 11.5 PTT: 28.1 INR: 1.1 A1C: 5.9% Electrocardiogram Date: 10/28/18 Findings: + NSR @ (83 with frequent PVCs in bigeminy) LBBB. Chest X-Ray Date: 10/27/18 FINDINGS: No pneumothorax. No pleural effusions. Mild emphysema. Mild diffuse interstitial thickening which is likely chronic. No new focal lung consolidations to suggest pneumonia. No evidence for pulmonary edema. The heart is stable in size. IMPRESSION: No significant change compared to the prior study. No acute process. Echocardiogram Date: 07/28/18 EF: 37% Study is technically limited due to poor acoustic windows but adequate for the referral indication. Frequent ectopy was noted during the echocardiogram. Mild concentric LVH. Septal wall motion is abnormal consistent with left bundle branch block. Otherwise mild to moderate diffuse LV hypokinesis is noted. Left ventricular systolic function is moderately reduced. Mild to moderate mitral regurgitation. Mild tricuspid regurgitation. Mild pulmonary hypertension is present, the calculate pulmonary artery systolic pressure is 44 mmHg. Diastolic dysfunction grade 2. A trace circumferential pericardial effusion is present. There are no echocardiographic indications of cardiac tamponade. Compared to the report of the outpatient echo demetri German study performed 05/17/2011, there has been an interval decline in the LVEF which was reported to be 50% on the prior study. Stress Test Date: 10/30/18 Type: nuclear Findings are consistent with a dilated cardiomyopathy and evidence of myocardial ischemia of the inferior myocardium. These findings are most consistent with the distribution of the right coronary or left circumflex arteries. Cardiac Catheterization Date: 10/31/18 Coronary angiography: Selective injections of the right coronary artery revealed to be dominant. There is minor nonobstructive coronary artery disease of 1 of the PDA branches otherwise the artery is widely patent. Selective injections of the left coronary artery reveal the left main trunk to be widely patent. The LAD trifurcates into a large first septal and then several large diagonal branches which reach only to the apex of the heart. The left circumflex consists principally of a large high first marginal which supplies the majority of the lateral myocardium and apex there is a second smaller marginal branch and then several small marginal branches supplying some of the posterior myocardium. The left circumflex artery is widely patent. Summary: The patient is widely patent coronary anatomy. Recommendations: The patient has a nonischemic cardiomyopathy which should be treated medically and possibly a resynchronization device.
[~2018-11-21 07:02] MED LIST: CEFAZOLIN 1000MG 1,000 MG/7.5 ML SYR IV SCH; LR 15ML/HR IV SCH
[2018-11-21] MEDS ORDERED: BACITRACIN INJ 50,000 UNIT VIAL ONE (07:07)
[2018-11-21] MEDS ORDERED: LIDOCAINE HCL 1% 20 ML VIAL ONE (07:07)
[2018-11-21] MEDS ORDERED: BUPIVACAINE 0.25% 30 ML VIAL ONE (07:07)
[2018-11-21] MEDS ORDERED: fentaNYL citrate 100 MCG/2 ML VIAL ONE (07:44)
[2018-11-21] MEDS ORDERED: MIDAZOLAM HCL 1 MG/ML 2ML VIAL ONE (07:44)
--- NOTE | 2018-11-21 07:44 | History & Physical Bridge Note ---
Date of Service November 21, 2018 History & Physical Bridge Note I have examined the patient, reviewed the History & Physical and in the interval since the performance of the History & Physical I have noted the following changes of clinical significance: no changes noted
[2018-11-21] MEDS ORDERED: CEFAZOLIN 250 MG/ML 1 GM VIAL ONE (08:12)
[2018-11-21] MEDS ORDERED: KETAMINE HCL INJ 50 MG/ML 10 ML VIAL ONE (08:27)
[2018-11-21] MEDS ORDERED: PROPOFOL IV EMULSION 10 MG/ML 20 ML VIAL IV ONE ×3 (08:50)
[2018-11-21] MEDS ORDERED: ONDANSETRON INJ 2 MG/ML 2 ML VIAL ONE (08:50)
[2018-11-21] MEDS ORDERED: LIDOCAINE HCL 2% 2 ML VIAL/AMP(20MG/ML) INFIL ONE (08:50)
--- NOTE | 2018-11-21 10:32 | Operative Report ---
Post Operative Report Pre & Post Diagnosis NICM, Chronic systolic HF-NYHA Class III, LBBB Operation Date: 11/21/18 08:00 <No data on this case meets the specified criteria> Procedure Operation Date: 11/21/18 08:00 Actual Procedures p ICD Insertion Single or Dual - Marilou Zamorano DO s Lead LV (No Priopr Implant) - Marilou Zamorano DO Surgeon Marilou Zamorano DO Furnace Utility Operator none Estimated Blood Loss 15 Findings Consistent with Post-Op Diagnosis Specimens None Description of Procedure see official report I attest to the content of the Intraoperative Record and any orders documented therein. Any exceptions are noted below.
--- NOTE | 2018-11-21 10:42 | Anesthesiology Progress Note ---
Date of Service November 21, 2018 Anesthesia Post Procedure Vital Signs Vital Signs: Temp Pulse Resp BP Pulse Ox 11/21/18 07:26 36.7 C 57 L 18 148/69 H 96 Transfer of Care Handoff Completed per policy Notes Mental Status: alert / awake / arousable Patient Amnestic to Procedure: Yes Nausea / Vomiting: adequately controlled Pain: adequately controlled Airway Patency, RR, SpO2: stable & adequate BP & HR: stable & adequate Hydration State: stable & adequate Anesthetic Complications: no major complications apparent and Pt Satisfied with anesthetic care Notes: The patient is awake and his vitals are stable.
--- NOTE | 2018-11-21 10:44 | Discharge Summary ---
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 Admission Exam Per Admitting Provider aaox3, NAD NC/AT, EOMI Supple No JVD Nrl S1/S2, No murmur CTA b/l no w/r/r soft nt/nd no LE edema b/l skin intact no focal deficits Principal Diagnosis NICM s/p BiV ICD Discharge Exam aaox3, NAD NC/AT, EOMI Supple No JVD Nrl S1/S2, No murmur CTA b/l no w/r/r soft nt/nd no LE edema b/l skin intact no focal deficits left pectoral incision intact, no hematoma mild ecchymosis Discharge Data Allergies Allergy/AdvReac Type Severity Reaction Status Date / Time No Known Allergies Allergy Unknown Verified 11/15/18 10:52 Procedures Performed Operation Date: 11/21/18 08:00 Actual Procedures p ICD Insertion Single or Dual - Marilou Zamorano DO s Lead LV (No Priopr Implant) - Marilou Zamorano DO Ordered Studies CXR: No PTX leads in position ECG: AP-BiV paced BiV ICD Interrogation: Normal function Stable lead testing from implant 11/21/18 06:45 EP Lab Images for PACS ONCE Total Time Total Time Spent Total Time Spent (In Minutes): 30 Total Time Includes: Examination of the Patient, Discharge Planning, Medication Reconciliation and Other Discharge Plan Discharge Items Patient Disposition: Home - Self-Care Reason For Visit: NON-ISCHEMIC CARDIOMYOPATHY Discharge Diagnosis: NICM s/p BiV ICD Condition: Good Discharge Goals: Improve function Activity: As commented below Activity Comment: do not lift the left elbow over the shoulder for 1 month Lifting: No more than 10 pounds Lifting Comment: do not lift more than 10 pounds with the left arm for 2 weeks Bathing: Keep incision dry Bathing Comment: can shower thursday 11/23; let water run over the incision do not scrub it Non-emergency contact: Junior Architect Call non-emergency contact if: you have any medication questions Follow-up/Referrals: Taylor Lopez DO [Primary Care Provider] - Diet: Heart Healthy Add Provider Instructions: Device and wound check next thursday 11/30 in [facility] cardiology If you notice any swelling or concerns at the incision site call my office immediately Prescriptions: Continued atorvastatin 10 mg tablet 10 mg PO QDL RF: 0 aspirin 81 mg Tablet,Delayed Release (Dr/Ec) 81 mg PO QDL RF: 0 mirtazapine 45 mg tablet 45 mg PO HS RF: 0 metoprolol succinate 25 mg tablet extended release 24 hr 25 mg PO QDL RF: 0 lisinopril 40 mg tablet 40 mg PO QDL RF: 0 fluticasone propionate 50 mcg/actuation spray,suspension 2 spray intranasal BID RF: 0 doxazosin 2 mg tablet 2 mg PO QDL RF: 0 amiodarone 200 mg tablet 200 mg PO QDL RF: 0 Stand-Alone Forms: [facility] Discharge Orders: Discharge Order (Routine); Ordered 11/22/18 Ordered By: Rajeev Ba Admission Data Admit Date/Time: 11/21/18 09:32 Attending Provider: Marilou Zamorano Admit Provider: Marilou Zamorano Primary Care Provider: Taylor Lopez Service: Surgical Services Other Interventions: Discharge Summary Assessment (RN) Last Done: 11/22/18 11:10 Pending Studies at Discharge: No DC Date/Time DO NOT enter until pt leaves facility: 11/22/18 13:13
[2018-11-21] MEDS: ATORVASTATIN 10 MG TAB PO SCH (12:01)
[2018-11-21] MEDS: METOPROLOL SUCC 25MG EXT REL TAB PO SCH (12:01)
[2018-11-21] MEDS: ASPIRIN 81 MG ECTAB PO SCH (12:01)
[2018-11-21] MEDS: LISINOPRIL 40 MG TAB PO SCH (12:02)
[2018-11-21] MEDS: DOXAZosin MESYLATE TAB 2 MG TAB PO SCH (12:02)
[2018-11-21] MEDS: AMIODARONE 200 MG TAB PO SCH (12:02)
[2018-11-21] MEDS: ACETAMINOPHEN 325 MG TAB PO PRN ×2 (13:14→20:33)
[2018-11-21] MEDS ORDERED: CEFAZOLIN 1000MG 1,000 MG/7.5 ML SYR IV ONE (16:00)
[2018-11-21] MEDS: FLUTICASONE PROPIONATE NA SPR 16 GM BTL NAE SCH (20:34)
[2018-11-21] MEDS ORDERED: MIRTAZAPINE SOLTAB 15 MG PO SCH (21:00)
[2018-11-22] MEDS: ACETAMINOPHEN 325 MG TAB PO PRN (05:19)
--- NOTE | 2018-11-22 07:31 | XRay Report ---
XR chest 2V routine CLINICAL HISTORY: Post pacemaker chest x-ray COMPARISON STUDY: 10/27/2018 FINDINGS: The heart is normal in size. The patient is hyperinflated. There is a left subclavian 3-mickey d central venous pacemaker. There is no pneumothorax. Electrode position appears unremarkable. There is no focal pulmonary consolidation. There are small bilateral pleural effusions. There is ankylosis of the dorsal spine.[ IMPRESSION: 1. No evidence of pneumothorax status post left subclavian pacemaker placement 2. Small bilateral pleural effusions 3. Hyperinflation Electronically signed by: Saud Wilcox M.D. 11/22/2018 7:29 AM
[2018-11-22] MEDS: FLUTICASONE PROPIONATE NA SPR 16 GM BTL NAE SCH (08:47)
--- NOTE | 2018-11-22 10:20 | Cardiology Progress Note ---
Date of Service November 22, 2018 Assessment & Plan (1) Biventricular cardiac pacemaker in situ: . Plan discharge today with follow-up as arranged (2) Nonischemic cardiomyopathy: Subjective Patient seen and examined. Device interrogation reviewed. Pacer defibrillator functioning appropriately. Patient tolerated procedure with no difficulties overnight only minor incisional discomfort. Physical Exam Constitutional: + thin; no acute distress ENMT: external ear and nose normal, oropharynx normal Neck: trachea midline, no thyromegaly Respiratory: normal respiratory effort, lungs clear to auscultation Cardiovascular: Rate/Rhythm: regular rate Extremities: no edema Chest (Breasts): Chest: + pacemaker (Device site without significant hematoma or erythema) Gastrointestinal (Abdomen): Percussion/Palpation: abdomen soft; abdomen no ntender Results & Data Vital Signs (Past 12 Hours) Vital Signs Temp Pulse Resp BP Pulse Ox 11/22/18 07:15 36.7 C 60 18 146/67 H 95 11/22/18 04:33 36.4 C L 59 L 18 147/64 H 94 11/21/18 23:40 36.6 C 60 22 145/66 H 95
[2018-11-22] MEDS: AMIODARONE 200 MG TAB PO SCH (11:23)
[2018-11-22] MEDS: DOXAZosin MESYLATE TAB 2 MG TAB PO SCH (11:23)
[2018-11-22] MEDS: ASPIRIN 81 MG ECTAB PO SCH (11:23)
[2018-11-22] MEDS: LISINOPRIL 40 MG TAB PO SCH (11:23)
[2018-11-22] MEDS: ATORVASTATIN 10 MG TAB PO SCH (11:24)
[2018-11-22] MEDS: METOPROLOL SUCC 25MG EXT REL TAB PO SCH (11:24)
--- NOTE | 2018-12-04 17:31 | Operative Report ---
DATE OF OPERATION: 11/21/2018 PREOPERATIVE DIAGNOSES: Nonischemic cardiomyopathy, left bundle branch block, chronic systolic heart failure, [place] Heart Association class 3 and nonsustained ventricular tachycardia. POSTOPERATIVE DIAGNOSES: Nonischemic cardiomyopathy, left bundle branch block, chronic systolic heart failure, [place] Heart Association class 3 and nonsustained ventricular tachycardia. PROCEDURE: Biventricular rate responsive implantable cardiac defibrillator under fluoroscopic guidance along with peripheral and coronary sinus venogram. SURGEON: Marilou Zamorano DO. COOKING INSTRUCTOR: None. ANESTHESIA: Monitored anesthetic care administered via Anesthesiology. Total of 200 mg of propofol, 20 mg of ketamine, 4 mg of Zofran, 2 mg of Versed and 75 mcg of fentanyl. INTRAVENOUS FLUIDS: 200 mL. IV CONTRAST: 35 mL. ANTIBIOTICS: 1 gram of Ancef. Start time 8:15, end time 10:24. ESTIMATED BLOOD LOSS: 30 mL. URINE OUTPUT: Not applicable. SPECIMENS: None. FINDINGS: See below. DRAINS: None. INDICATIONS: This is an 83-year-old gentleman with past medical history for nonischemic cardiomyopathy, ejection fraction 30-34%, left bundle branch block, chronic systolic heart failure, [place] Heart Association class 3, nonsustained VT started on amiodarone in 10/2018, pulmonary nodules, malnutrition, BPH and prior tobacco use. He was recommended a biventricular device. His family preferred defibrillator. CONSENT: Consent was obtained prior to going into the Electrophysiology lab. The patient was informed of risks, benefits and alternative of procedure. Risks include but not limited to sudden cardiac , cardiac arrhythmias, cerebrovascular accident, myocardial infarction, injury to the blood vessels, chamber of the heart, lung, bleeding, and infection. The patient understood these risks and agreed to the procedure as planned. Informed consent was obtained. DESCRIPTION OF PROCEDURE: The patient was brought into the Electrophysiology lab in fasting state. After continuous cardiac monitoring, a timeout was performed to ensure patient identity and procedure correctly. The patient was prepped and draped over the left infraclavicular space in normal surgical standard fashion. Monitored conscious sedation was given throughout the procedure for patient's comfort level. [place] precautions were maintained throughout the procedure. 10 mL of 1% lidocaine, bupivacaine mixture were given in left deltopectoral groove. Incision was made in left deltopectoral groove. Blunt dissection was performed down to identify the cephalic vein. Cephalic vein was identified and isolated using 0 silk ties. Then a peripheral venogram was performed to identify the axillary vein and axillary venous access was obtained through a needlestick. Then I went back to the cephalic vein, I nicked it with 11 blade and a guidewire was inserted without any resistance. An 8-Georgian sheath was inserted over the guidewire without any resistance. Dilator was removed and a second guidewire was inserted through the 8-Georgian sheath to allow for retained venous access. Then a 9.5-Georgian sheath was inserted over one of the guidewires without any resistance. Guidewire and dilator removed. The right ventricular ICD lead was then advanced into right ventricle and positioned into right ventricular apex under fluoroscopic guidance. There was adequate pacing and sensing thresholds and no diaphragmatic stimulation with high output pacing. The 9.5-Georgian sheath was peeled away and lead was fixated to pectoralis muscle using 0 silk suture. An 8-Georgian sheath was then advanced over the retained guidewire through the cephalic vein. Guidewire and dilator removed. The right atrial lead was then advanced into right atrium and positioned interatrial appendage under fluoroscopic guidance. There was adequate pacing and sensing thresholds and no diaphragmatic stimulation with high output pacing. The 8-Georgian sheath was peeled away and lead was fixated to pectoralis muscle using 0 silk suture. We then set up to do the LV lead through the axillary vein. A 9.5-Georgian sheath was inserted over the retained guidewire. Guidewire and dilator were removed. Then over a Glidewire. the MPX outer catheter was advanced into right atrium. The guidewire and dilator were removed. Then using a Decapolar diagnostic catheter, the coronary sinus was cannulated and an Attain Command MPX was then advanced over the EP catheter into the coronary sinus. A venogram of the coronary sinus was performed and identified a nice posterolateral branch. A Whisper wire was advanced out into the branch and then I was able to advance the MPX out into this branch followed then by checking the lead over the Whisper wire. There was adequate pacing and sensing thresholds and no diaphragmatic stimulation with high output pacing. The Whisper wire was removed and a stylette was placed down the lead and then I slit the MPX sheath under fluoroscopic guidance. Then I split the 9.5-Georgian sheath under fluoroscopic guidance. Then the lead was fixated to pectoralis muscle using 0 silk suture. A defibrillator pocket was created using blunt dissection over the pectoralis muscle within the pectoralis fascia. The pocket was flushed with copious amounts of bacitracin saline wash and inspected for hemostasis. The defibrillator was then attached to leads, making sure that the pins were in appropriate position, passed set screw and set screws were all tightened. The defibrillator was then placed in a TYRX pouch and then placed in the pocket, making sure that the leads were lying flat beneath the device. The incision was then closed in 2-layer fashion with 2-0 Vicryl and suture followed by 3-0 Vicryl interrupted suture followed by 4-0 Monocryl running stitch, followed then by Dermabond, followed then by a pressure dressing. EQUIPMENT: 1. Generator is a [employer] Quad SHIPS OR BARGES LOADER-D SureScan [id number], serial number [id number]. 2. Antibiotic TYRX pouch, lot number [id number], expiry is 12/22/2018. 3. Right atrial lead Medtronic 5076-45 cm, serial number [id number]. 3. Right ventricular lead, Medtronic 6935-55 cm, serial number [id number]. 4. Left ventricular lead, Medtronic 4598-78 cm, serial number [id number]. INTRAOPERATIVE TESTIN. Right atrial lead: P-wave 3.4 millivolts, impedance 615 ohms, threshold 2.2 volts at 4.2 milliamps. 2. Right ventricular lead: R-wave 15 millivolts, impedance 49 ohms, threshold 0.6 volts at 1.1 milliamps. 3. Left ventricular lead programmed LV2 to LV3, impedance 410 ohms, threshold 0.5 volts at 1.2 milliamps. FINAL PARAMETERS THROUGH THE DEVICE: 1. Right atrial lead: P waves 4 millivolts, impedance 513 ohms, threshold 0.5 volts at 0.4 milliseconds. 2. Right ventricular lead: R-wave 17.5 millivolts, impedance 570 ohms, threshold 0.5 volts at 0.4 milliseconds. 3. Left ventricular lead LV2-LV3, impedance 399 ohms, threshold 0.75 volts at 0.4 milliseconds. FINAL PARAMETERS: DDDR 60/130, right atrial and amplitude 3.5 volts, pulse width 0.4 milliseconds, sensitivity 0.3 millivolts. Right ventricular amplitude 3.5 volts, pulse width 0.4 milliseconds, sensitivity 0.9 millivolts. Left ventricular amplitude 4.5 volts, pulse width 0.4 milliseconds. A VT zone at 167 beats per minute for 20 detection intervals, VT zone at 200 beats per minute for 30/40 detection intervals. IMPRESSION: Successful implantation of biventricular implantable cardiac defibrillator rate responsive under fluoroscopic guidance along with peripheral and coronary sinus venogram secondary to nonischemic cardiomyopathy, left bundle branch block and chronic systolic heart failure. PLAN: Monitor patient overnight, 12-lead ECG, chest x-ray. He is not allowed to lift left elbow or left shoulder for 1 month. He cannot lift more than 10 pounds with the left arm for 2 weeks. He can shower in 2 days, let water run over incision, do not scrub it. He should follow up in our [facility] office for device and wound check on Monday11/30/2018. I attest to the content of the Intraoperative Record and any orders documented therein. Any exception s are noted below.
== END 2018-11-22 13:13 | disposition home or self-care (01) ==
LOC: ASU 07:02 → 2S 07:02
PROC: EPB.ICD (2018-11-21 08:00)

== ENCOUNTER 2019-01-11 12:57 | Inpatient (IN) ==
[2019-01-11] MEDS ORDERED: PIPERACILL/TAZOBAC CONSULT ACTIVE PRN (13:46)
[2019-01-11] MEDS ORDERED: VANCOMYCIN CONSULT ACTIVE PRN (13:46)
[2019-01-11] MEDS ORDERED: VANCOMYCIN HCL 1,250 MG in SODIUM CHLORIDE 0.9% 500 ML IV ONE (13:46)
[2019-01-11] MEDS ORDERED: PIPERACILLIN/TAZOBACTAM 4.5 GM/120 ML BAG IV ONE (13:46)
--- NOTE | 2019-01-11 13:48 | XRay Report ---
XR chest 1V portable CLINICAL HISTORY: Chest pain. COMPARISON STUDY: Chest CT October 27, 2018. Chest radiograph November 22, 2018. FINDINGS: Left subclavian pacer/AICD is in place. There is no pneumothorax. There are small bilateral pleural effusions. Pulmonary edema is noted. Left basilar opacity is present. These findings have pr ogressed since prior exam. IMPRESSION: 1. Moderate pulmonary edema. 2. Small bilateral pleural effusions and left basilar opacity which may reflect pneumonia or atelecta sis. Radiographic follow-up to ensure resolution is recommended. Electronically signed by: Jan Dunham M.D. 01/11/2019 1:47 PM
[2019-01-11 14:25] LABS: Basophils # (auto) 0.07 K/uL (0-0.2); Basophils % (auto) 0.7 %; Eosinophils # (auto) 0.06 K/uL (0-0.5); Eosinophils % (auto) 0.6 %; Hematocrit (blood only) 34.5 % (42-52); Hemoglobin 11.5 g/dL (14.0-18.0); Immature Granulocytes # (auto) 0.02 K/uL (0.00-0.02); Immature Granulocytes % (auto) 0.2 %; Lymphocytes # (auto) 0.91 K/uL (1.2-3.4); Lymphocytes % (auto) 9.3 %; Mean Corpuscular Hemoglobin 33.4 pg (25-34); Mean Corpuscular Hgb Conc 33.3 g/dL (32-36); Mean Corpuscular Volume 100.3 fL (80-100); Mean Platelet Volume 11.1 fL (7.4-10.4); Monocytes # (auto) 0.75 K/uL (0.11-0.59); Monocytes % (auto) 7.7 %; Neutrophils # (auto) 7.93 K/uL (1.4-6.5); Neutrophils % (auto) 81.5 %; Platelet Count 174 K/uL (130-400); RDW Coefficient of Variation 13.4 % (11.5-14.5); RDW Standard Deviation 49.7 fL (36.4-46.3); Red Blood Count 3.44 M/uL (4.7-6.1); White Blood Count 9.74 K/uL (4.8-10.8)
[2019-01-11 14:32] LABS: INR 1.1 (0.9-1.1); Prothrombin Time 11.4 Seconds (9.0-12.0)
[2019-01-11 14:38] LABS: Albumin Level 3.2 gm/dl (3.4-5.0); BUN Creatinine Ratio 12.2 (10-20); Calcium 8.8 mg/dl (8.5-10.1); Creatinine Clr Calc Pharmacy 42.8 ml/min; Est GFR (African American) 74.9; Est GFR (Non-African American) 64.6
[2019-01-11 14:43] LABS: Albumin Globulin Ratio 0.8 (0.9-2); Bilirubin,Total 0.4 mg/dl (0.2-1); Globulin 4.1 gm/dl (2.5-4.0); Total Protein 7.3 gm/dl (6.4-8.2); Troponin I 0.037 ng/ml (0-0.045)
[2019-01-11] MEDS ORDERED: ACETAMINOPHEN 325 MG TAB PO PRN (15:36)
--- NOTE | 2019-01-11 15:40 | History & Physical Report ---
Date of Service January 11, 2019 Assessment & Plan (1) Infection of pacemaker pocket: Suspected infection of ICD/biventricular pacemaker pocket. Afebrile. Does not appear to be septic. Blood cultures obtained in ED and patient was started on intravenous piperacillin/tazobactam and vancomycin. Further management per Cardiology. (2) Biventricular cardiac pacemaker in situ: Status post placement of ICD/biventricular pacemaker. Management per Cardiology. (3) NSVT (nonsustained ventricular tachycardia): History of nonsustained ventricular tachycardia. Continue amiodarone. (4) Nonischemic cardiomyopathy: Diagnosed with a nonischemic cardiomyopathy with left ventricular ejection fraction around 30%. Chest x-ray today shows COPD with probable superimposed pulmonary edema. Probable acute on chronic left ventricular systolic heart failure. Check BNP to confirm radiographic impression. No need to repeat echocardiogram at this time unless recommended by Cardiology. Continue metoprolol succinate and lisinopril. Start furosemide 20 mg daily. Continue biventricular pacing. (5) Hypertension: Continue metoprolol succinate, lisinopril, doxazosin. (6) COPD, mild: Pulmonary status stable. Oxygenating well on room air. (7) BPH (benign prostatic hyperplasia): Continue doxazosin. (8) DVT prophylaxis: SQ heparin; hold for surgical procedures. Ambulate. (9) Discharge planning issues: Anticipated discharge to home. Primary care follow-up with Dr. Lopez. Cardiology follow-up with Dr. Henderson. History of Present Illness Chief Complaint: possible infection ICD generator pocket Primary Care Provider: Taylor Lopez, 84-year-old male with history of nonischemic cardiomyopathy, nonsustained ventricular tachycardia, and other problems noted below. Followed by Dr. Lopez for Family Medicine and Dr. Henderson for Cardiology. ICD with biventricular pacing placed by Dr. Zamorano on 11/21/18. Seen for EP follow-up with Dr. Zamorano on 12/07/18. Noted to have a pocket hematoma; trimethoprim / sulfa prescribed. Seen in clinic today for ICD/pacer check. There was concern about a possible infection of the ICD/pacemaker pocket and patient was referred to the ED for further evaluation and management. Patient noticed increased swelling around the device generator a few days ago. The pocket is a bit tender. No drainage. No fever, chills, sweats. Allergies Allergy/AdvReac Type Severity Reaction Status Date / Time No Known Allergies Allergy Unknown Verified 01/11/19 14:08 Home Medications Home Medications Medication Instructions Recorded Confirmed Type aspirin 81 mg PO QDL 10/27/18 01/11/19 History atorvastatin 10 mg PO QDL 10/27/18 01/11/19 History doxazosin 2 mg PO QDL 10/27/18 01/11/19 History fluticasone propionate 2 spray INTRANASAL BID 10/27/18 01/11/19 History lisinopril 40 mg PO QDL 10/27/18 01/11/19 History metoprolol succinate 25 mg PO QDL 10/27/18 01/11/19 History mirtazapine 45 mg PO HS 10/27/18 01/11/19 History amiodarone 200 mg PO QDL 11/15/18 01/11/19 History Past Med/Surg History Medical History Biventricular cardiac pacemaker in situ (Chronic) NSVT (nonsustained ventricular tachycardia) (Chronic) Moderate protein-calorie malnutrition (Chronic) Nonischemic cardiomyopathy (Chronic) Pt admitted for BiV ICD due to NICM, LBBB and Chronic systolic HF-NYHA Class III. Underwent procedure without any complications; monitored overnight and discharged home. 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 11/01/18 = widely patent coronary arteries History of total left hip replacement (Chronic) History of tonsillectomy and adenoidectomy (Chronic) History of cataract surgery (Chronic) BILATERAL History of appendectomy (Chronic) History of cardiac cath SEPTEMBER 2018 AT [facility] NO STENTS History of colonoscopy Family History Mother Hypertension Brother FHx: myocardial infarction HALF-BROTHER Social History Preferred Language: Malaysian Communication Ability: Effective Element Burner Required: No Beliefs That Will Affect Care: None marital status: Current Living Situation: Spouse Current Living Situation Comment: GRANDDAUGHTER current occupational status: retired Feels Safe at Home: Yes Smoking Status: Never smoker Tobacco Type: cigarettes ; Cigarettes Per Day: 20 ; Second Hand Exposure: No ; Hx Alcohol Use: No Hx Substance Use: No Review of Systems Constitutional: no fever and no weight loss Eyes: no diplopia and no worsening vision Ear, Nose, Mouth, Throat: + hearing loss; no nasal congestion, no sinus pain/pressure and no sore throat Respiratory: + cough (chronic, productive of whitish sputum, unchanged) and + dyspnea on exertion (chronic, unchanged); no hemoptysis Cardiovascular: no chest pain, no palpitations and no edema Gastrointestinal: no nausea, no vomiting, no constipation, no diarrhea/loose stools, no blood in stools and no melena Genitourinary: + urinary hesitancy Musculoskeletal: no joint pain and no myalgia Integumentary: no rash and no new lesions Neurologic: no headache(s) Endocrine: no polydipsia and no polyuria Hematologic / Lymphatic: + easy bruising; no easy bleeding and no lymphadenopathy Physical Exam Constitutional: + thin; no acute distress Eyes: PERRL, conjunctivae normal, anicteric sclerae ENMT: external ear and nose normal, oropharynx normal hearing aide Neck: trachea midline, no thyromegaly Respiratory: no respiratory distress Auscultation: + wheezes (diffuse, mild) Cardiovascular: Rate/Rhythm: regular rate and regular rhythm Heart Sounds: no gallop, no murmur and no cardiac rub Vessels: no JVD Extremities: no calf tenderness and no edema distant heart sounds Chest (Breasts): Chest: + pacemaker (left infraclavicular; moderate swelling, mild erythema and tenderness) Gastrointestinal (Abdomen): normal bowel sounds, soft, nontender, no hepatosplenomegaly Musculoskeletal: Head/Neck/Chest: neck supple Extremities: strength 5/5 throughout; no cyanosis Skin: no rashes, warm and dry Neurologic: PERRL, EOMI no facial palsy no dysarthria or aphasia patellar DTR's 2/2 bilat Psychiatric: Orientation: alert and oriented x 3 Affect: euthymic affect Lymphatic: no cervical lymphadenopathy Results & Data Vital Signs (Past 12 Hours) Vital Signs Temp Pulse Resp BP Pulse Ox 01/11/19 15:00 68 17 150/71 H 98 01/11/19 14:30 63 17 142/71 H 97 01/11/19 14:07 61 18 139/62 97 01/11/19 14:06 62 18 96 01/11/19 13:45 98 01/11/19 13:00 65 19 150/67 H 96 01/11/19 12:45 36.7 C 76 20 150/67 H 98 Laboratory Results Laboratory Results - last 24 hr 01/11/19 01/11/19 01/11/19 14:08 14:08 14:08 WBC 9.74 RBC 3.44 L Hgb 11.5 L Hct 34.5 L MCV 100.3 H MCH 33.4 MCHC 33.3 RDW Std Deviation 49.7 H RDW Coeff of Ty 13.4 Plt Count 174 MPV 11.1 H Immature Gran % (Auto) 0.2 Neut % (Auto) 81.5 Lymph % (Auto) 9.3 Cascade % (Auto) 7.7 Eos % (Auto) 0.6 Baso % (Auto) 0.7 Immature Gran # (Auto) 0.02 Neut # (Auto) 7.93 H Lymph # (Auto) 0.91 L Cascade # (Auto) 0.75 H Eos # (Auto) 0.06 Baso # (Auto) 0.07 PT 11.4 INR 1.1 Sodium 133 L Potassium 4.0 Chloride 99 Carbon Dioxide 28 Anion Gap 6.0 BUN 13 Creatinine 1.06 Est Cr Clr Drug Dosing 42.8 Est GFR ( Amer) 74.9 Est GFR (Non-Af Amer) 64.6 BUN/Creatinine Ratio 12.2 Glucose 101 H Lactate Calcium 8.8 Total Bilirubin 0.4 AST 16 ALT 20 Alkaline Phosphatase 79 Troponin I 0.037 Total Protein 7.3 Albumin 3.2 L Globulin 4.1 H Albumin/Globulin Ratio 0.8 L Lipase 83 01/11/19 14:08 WBC RBC Hgb Hct MCV MCH MCHC RDW Std Deviation RDW Coeff of Ty Plt Count MPV Immature Gran % (Auto) Neut % (Auto) Lymph % (Auto) Cascade % (Auto) Eos % (Auto) Baso % (Auto) Immature Gran # (Auto) Neut # (Auto) Lymph # (Auto) Cascade # (Auto) Eos # (Auto) Baso # (Auto) PT INR Sodium Potassium Chloride Carbon Dioxide Anion Gap BUN Creatinine Est Cr Clr Drug Dosing Est GFR ( Amer) Est GFR (Non-Af Amer) BUN/Creatinine Ratio Glucose Lactate 1.6 Calcium Total Bilirubin AST ALT Alkaline Phosphatase Troponin I Total Protein Albumin Globulin Albumin/Globulin Ratio Lipase ECG Additional Comments: EKG performed at 1355 reviewed and demonstrated atrial sensed, ventricular paced rhythm at 70/minute, occasional PVCs, repolarization abnormalities. Code Status & VTE Plan Code Status Discussed with patient and his daughter. He believes that he has a living will, but is not certain exactly what it states. He would like resuscitation attempted in the event of a cardiopulmonary arrest. Therefore, code status is full resuscitation. VTE Prophylaxis Plan VTE Prophylaxis will be ordered: Yes (1) Infection of pacemaker pocket Encounter type: initial encounter Qualified Code(s): T82.7XXA - Infection and inflammatory reaction due to other cardiac and vascular devices, implants and grafts, initial encounter
--- NOTE | 2019-01-11 15:59 | Pharmacy Report ---
Pharmacy Abx Initial Consult - Date of Service January 11, 2019 - Pharmacy Dosing Scope Date of Consult: 01/11/19 Consultation requested by: Dr. Cuellar Pharmacy is consulted to initiate vancomycin and Zosyn IV dosing therapy, order appropriate labs and adjust drug dose/frequency. - Subjective The patient is a 84 year old M admitted on 01/11/19 14:28. - Objective Height: 5 ft 9 in Weight: 57.3 kg Vital Signs (Past 12hrs): Vital Signs Temp Pulse Resp BP Pulse Ox 01/11/19 15:00 68 17 150/71 H 98 01/11/19 14:30 63 17 142/71 H 97 01/11/19 14:07 61 18 139/62 97 01/11/19 14:06 62 18 96 01/11/19 13:45 98 01/11/19 13:00 65 19 150/67 H 96 01/11/19 12:45 36.7 C 76 20 150/67 H 98 Lab Results (24hrs): Laboratory Tests (24 Hours) 01/11/19 01/11/19 14:08 14:08 WBC 9.74 Neut # (Auto) 7.93 H Creatinine 1.06 Est Cr Clr Drug Dosing 42.8 Micro Results: 01/11/19 14:08 Aerobic Blood Culture - Pending Blood Anaerobic Blood Culture - Pending 01/11/19 13:37 Aerobic Blood Culture - Pending Blood Anaerobic Blood Culture - Pending - Risk Factors for Resistance * Bactrim PO * recent pacer insertion 11/21/18 - Assessment & Plan Assessment 84 year old M admitted with infection around pacer insertion site Plan vancomycin/Zosyn for treatment of pacer insertion Vancomycin IV * Estimated PK Parameters: Vd 0.7 L/kg, Moiz 0.04 hr-1, t1/2 17 hr * Loading dose: 1250 mg (22 mg/kg) * Maintenance dose: 1000 mg IV (17 mg/kg) every 18 hours * Goal trough level for wound infection : ~15 mcg/mL * Trough ordered for 01/13/19 Piperacillin/tazobactam * 4.5 g bolus administered over 30 minutes, then 3.375 g IV extended infusion every 8 hours for CrCl greater than 20 mL/min Pharmacy will continue to follow and will adjust dose/frequency as necessary. Thank you.
[2019-01-11] MEDS: PIPERACILLIN/TAZOBACTAM 3.375 GM in DEXTROSE 5% 100 ML IV SCH (20:03)
[2019-01-11] MEDS: HEPARIN SOD 5,000 UNIT/0.5 ML VIAL SQ SCH (20:43)
[2019-01-11] MEDS: FLUTICASONE PROPIONATE NA SPR 16 GM BTL SCH (20:43)
[2019-01-11] MEDS: MIRTAZAPINE SOLTAB 15 MG PO SCH (20:44)
--- NOTE | 2019-01-11 21:05 | Emergency Department Note ---
Entered by Valencia Rust acting as a scribe for Jered Buchanan MD History of Present Illness General Chief complaint: Infection, Wound Time Seen by Provider: 01/11/19 13:03 Source: patient and family History of Present Illness Onset (ago): day(s) 2 Location: left (chest wall) Pain Consistency: + other (episode) Maximum Pain Intensity: 0 Quality: + other (infection) Relieved By: + medication (antibiotics) Associated symptoms: + denies other symptoms (abnormal eating and drinking, congestion, diarrhea) and + cough; no fever/chills (fever) and no nausea/vomiting The patient is an 84 year old male who presents to the Emergency Room with complaints of an episode of an infection starting 2 days ago. The patient states that he had a pacemaker placed 2 months ago, but it took a long time to heal. He states that the site had been infected. He reports that he was placed on antibiotics, which helped the infection pass. He notes that when he saw the surgeon 10 days ago, he had no sign of infection and everything had completely healed. The patient reports that a few days ago he noticed it was becoming red, swollen, and painful again. He reports that he had an appointment with his PCP this morning and then his surgeon this afternoon so he just waited to see them. He states that this afternoon when he saw the surgeon, he was told to come to the ED to have blood cultures done. The patient notes that he has had blood cul tures and cultures of the incision in the past, but they have never come back positive. The patient notes an occasional chronic cough, but denies ever being a smoker. The patient denies fever, nausea, vomiting, ever needing the infection to be drained, abnormal eating and drinking, congestion, and diarrhea. Of note, during the interview with the patient, the patients daughter stopped me several times to question what I was asking. She asked if I was trying to ascertain if he should even be here because he definitely should be since the surgeon sent him in. I reassured her that I thought that he should be here and be admitted. She then was becoming frustrated that I was asking questions about the progression of his infection beginning from the initial placement of his device . I explained to her that it was pertinent to understand the entire course of the infection. Home Medications Home Medications Medication Instructions Recorded Confirmed Type aspirin 81 mg PO QDL 10/27/18 01/11/19 History atorvastatin 10 mg PO QDL 10/27/18 01/11/19 History doxazosin 2 mg PO QDL 10/27/18 01/11/19 History fluticasone propionate 2 spray INTRANASAL BID 10/27/18 01/11/19 History lisinopril 40 mg PO QDL 10/27/18 01/11/19 History metoprolol succinate 25 mg PO QDL 10/27/18 01/11/19 History mirtazapine 45 mg PO HS 10/27/18 01/11/19 History amiodarone 200 mg PO QDL 11/15/18 01/11/19 History Allergies Allergy/AdvReac Type Severity Reaction Status Date / Time No Known Allergies Allergy Unknown Verified 01/11/19 14:08 Past Med/Surg History Medical History Biventricular cardiac pacemaker in situ (Chronic) NSVT (nonsustained ventricular tachycardia) (Chronic) Moderate protein-calorie malnutrition (Chronic) Nonischemic cardiomyopathy (Chronic) Pt admitted for BiV ICD due to NICM, LBBB and Chronic systolic HF-NYHA Class III. Underwent procedure without any complications; monitored overnight and discharged home. 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 11/01/18 = widely patent coronary arteries History of total left hip replacement (Chronic) History of tonsillectomy and adenoidectomy (Chronic) History of cataract surgery (Chronic) BILATERAL History of appendectomy (Chronic) History of cardiac cath SEPTEMBER 2018 AT [facility] NO STENTS History of colonoscopy Family History Mother Hypertension Brother FHx: myocardial infarction HALF-BROTHER Social History Preferred Language: Romansh Communication Ability: Effective Manual Writer Required: No Beliefs That Will Affect Care: None marital status: Current Living Situation: Spouse Current Living Situation Comment: GRANDDAUGHTER current occupational status: retired Other Information That Helps Us Care for You: No Feels Safe at Home: Yes Safety Concerns: Feels Safe At This Time Smoking Status: Former smoker Tobacco Type: cigarettes ; Cigarettes Per Day: 20 ; Do You Dip or Chew Tobacco: No ; Second Hand Exposure: No ; Tobacco Cessation Education Requested by Patient: No Hx Alcohol Use: No Hx Substance Use: No Review of Systems See HPI for pertinent positives & negatives. and A total of 10 systems reviewed and were otherwise negative Physical Exam Vital Signs Vital Signs - 24 hr 01/11/19 12:45 01/11/19 13:00 01/11/19 13:45 Temperature 36.7 C Temperature Source Oral Sepsis Recent Fever Within 48 Hours No Sepsis New/Unexplained Change in Mental Status No Sepsis Action Taken by Nursing No Action Required Pulse Rate 76 65 Pulse Rate from SpO2 Sensor 64 Respiratory Rate 20 19 Respiratory Effort / Characteristics Non-Labored Spontaneous Respiratory Depth Normal Respiratory Pattern Regular Blood Pressure 150/67 H 150/67 H Blood Pressure Mean 94 94 Blood Pressure Position Lying Pulse Oximetry 98 96 98 Oxygen Delivery Method Room Air Room Air 01/11/19 14:06 01/11/19 14:07 Temperature Temperature Source Sepsis Recent Fever Within 48 Hours Sepsis New/Unexplained Change in Mental Status Sepsis Action Taken by Nursing Pulse Rate 62 61 Pulse Rate from SpO2 Sensor 62 60 Respiratory Rate 18 18 Respiratory Effort / Characteristics Respiratory Depth Respiratory Pattern Blood Pressure 139/62 Blood Pressure Mean 87 Blood Pressure Position Pulse Oximetry 96 97 Oxygen Delivery Method GENERAL: Awake, alert, in no distress HENT: Normocephalic, atraumatic. Oropharynx with dry mucous membranes and otherwise unremarkable. EYES: Normal conjunctiva. Sclera non-icteric. NECK: Supple. No nuchal rigidity. FROM. No JVD. RESPIRATORY: Clear to auscultation bilaterally. CARDIAC: Regular rate, normal rhythm. Extremities warm and well perfused. Pulses equal. CHEST: Fluctuance overlying the patient's AICD/pacemaker in the left upper chest wall with mild erythema and warmth. ABDOMEN: Soft, non-distended. No tenderness to palpation. No rebound or guarding. No masses. RECTAL: Deferred. MUSCULOSKELETAL: Chest examination reveals no tenderness. The back is symmetrical on inspection without obvious abnormality. There is no CVA tenderness to palpation. No joint edema. LOWER EXTREMITIES: Calves are equal size bilaterally and non-tender. No edema. No discoloration. NEURO: Normal sensorium. No sensory or motor deficits noted. SKIN: No rash or jaundice noted. Course 1306: Past medical records reviewed. The patient was evaluated in room C2B. A complete history and physical exam was performed. 1338: I discussed the patient's case with Dr. Dotson Cardiology. She informed me of the plan to admit the patient for IV antibiotics and notes that she already spoke to Dr. Henderson. 1419: I discussed the patient's case with Dr. Benedicto Bro Hospitalist. He will evaluate the patient for further management. 1458: I reevalauated the patient and Dr. Cuellar is at bedside. Consultations Consultation #1: I discussed the patient's case with Dr. Mauri Sanches. She informed me of the plan to admit the patient for IV antibiotics and notes that she already spoke to Dr. Henderson. Time: 13:38 Consultation #2: I discussed the patient's case with Dr. Benedicto Bro [facility]. He will evaluate the patient for further management. Time: 14:19 Administered Medications Fluticasone Propionate (Flonase) 2 sprays NA BID CANDICE Stop: 02/10/19 20:59 Last Admin: 01/11/19 20:43 Dose: 2 sprays Documented by: [id number] Heparin Sodium (Porcine) (Heparin Sodium (Porcine)) 5,000 units SQ Q12 CANDICE Stop: 02/10/19 20:59 Last Admin: 01/11/19 20:43 Dose: 5,000 units Documented by: [id number] Cosigned by: [id number] Piperacillin Sod/Tazobactam (Sod 3.375 gm/ Dextrose) 115 mls @ 28.75 mls/hr IV Q8H CANDICE; Protocol Stop: 01/21/19 19:59 Last Infusion: 01/12/19 00:17 Dose: 0 mls/hr Documented by: [id number] Admin: 01/11/19 20:03 Dose: 28.8 mls/hr Documented by: [id number] Mirtazapine (Remeron Solutab) 45 mg PO HS CANDICE Stop: 02/10/19 20:59 Last Admin: 01/11/19 20:44 Dose: 45 mg Documented by: [id number] Discontinued Medications Piperacillin Sod/Tazobactam Sod (Zosyn) 4.5 gm in 120 mls @ 240 mls/hr IV NOW ONE Stop: 01/11/19 14:15 Last Infusion: 01/11/19 14:58 Dose: 0 mls/hr Documented by: [id number] Admin: 01/11/19 14:30 Dose: 240 mls/hr Documented by: [id number] Vancomycin HCl 1,250 mg/ (Sodium Chloride) 525 mls @ 200 mls/hr IV NOW ONE Stop: 01/11/19 16:23 Last Infusion: 01/11/19 17:51 Dose: 0 mls/hr Documented by: [id number] Admin: 01/11/19 15:07 Dose: 200 mls/hr Documented by: [id number] Medical Decision Making Differential Diagnosis Differential diagnosis includes etiologies such as cellulitis, abscess, MRSA infection, DVT, necrotizing fasciitis, dermatitis, drug eruption, as well as others were entertained. Medical Records Attestation: I reviewed the patient's medical records. Home Medications Current Medication List: was personally reviewed by me Laboratory Data Attestation: I reviewed the patient's lab results. Result diagrams: 01/11/19 14:08 01/11/19 14:08 Lab Results 01/11/19 01/11/19 01/11/19 Range/Units 14:08 14:08 14:08 WBC 9.74 (4.8-10.8) K/uL RBC 3.44 L (4.7-6.1) M/uL Hgb 11.5 L (14.0-18.0) g/dL Hct 34.5 L (42-52) % MCV 100.3 H (80-100) fL MCH 33.4 (25-34) pg MCHC 33.3 (32-36) g/dL RDW Std Deviation 49.7 H (36.4-46.3) fL RDW Coeff of Ty 13.4 (11.5-14.5) % Plt Count 174 (130-400) K/uL MPV 11.1 H (7.4-10.4) fL Immature Gran % (Auto) 0.2 % Neut % (Auto) 81.5 % Lymph % (Auto) 9.3 % [place] % (Auto) 7.7 % Eos % (Auto) 0.6 % Baso % (Auto) 0.7 % Immature Gran # (Auto) 0.02 (0.00-0.02) K/uL Neut # (Auto) 7.93 H (1.4-6.5) K/uL Lymph # (Auto) 0.91 L (1.2-3.4) K/uL [place] # (Auto) 0.75 H (0.11-0.59) K/uL Eos # (Auto) 0.06 (0-0.5) K/uL Baso # (Auto) 0.07 (0-0.2) K/uL PT 11.4 (9.0-12.0) Seconds INR 1.1 (0.9-1.1) Sodium 133 L (136-145) mmol/L Potassium 4.0 (3.5-5.1) mmol/L Chloride 99 (98-107) mmol/L Carbon Dioxide 28 (21-32) mmol/L Anion Gap 6.0 (3-11) BUN 13 (7-18) mg/dl Creatinine 1.06 (0.6-1.4) mg/dl Est Cr Clr Drug Dosing 42.8 ml/min Est GFR ( Amer) 74.9 Est GFR (Non-Af Amer) 64.6 BUN/Creatinine Ratio 12.2 (10-20) Glucose 101 H (70-99) mg/dl Lactate (0.4-2.0) mmol/L Calcium 8.8 (8.5-10.1) mg/dl Total Bilirubin 0.4 (0.2-1) mg/dl AST 16 (15-37) U/L ALT 20 (12-78) U/L Alkaline Phosphatase 79 (45-117) U/L Troponin I 0.037 (0-0.045) ng/ml Total Protein 7.3 (6.4-8.2) gm/dl Albumin 3.2 L (3.4-5.0) gm/dl Globulin 4.1 H (2.5-4.0) gm/dl Albumin/Globulin Ratio 0.8 L (0.9-2) Lipase 83 (73-393) U/L 01/11/19 Range/Units 14:08 WBC (4.8-10.8) K/uL RBC (4.7-6.1) M/uL Hgb (14.0-18.0) g/dL Hct (42-52) % MCV (80-100) fL MCH (25-34) pg MCHC (32-36) g/dL RDW Std Deviation (36.4-46.3) fL RDW Coeff of Ty (11.5-14.5) % Plt Count (130-400) K/uL MPV (7.4-10.4) fL Immature Gran % (Auto) % Neut % (Auto) % Lymph % (Auto) % [place] % (Auto) % Eos % (Auto) % Baso % (Auto) % Immature Gran # (Auto) (0.00-0.02) K/uL Neut # (Auto) (1.4-6.5) K/uL Lymph # (Auto) (1.2-3.4) K/uL [place] # (Auto) (0.11-0.59) K/uL Eos # (Auto) (0-0.5) K/uL Baso # (Auto) (0-0.2) K/uL PT (9.0-12.0) Seconds INR (0.9-1.1) Sodium (136-145) mmol/L Potassium (3.5-5.1) mmol/L Chloride (98-107) mmol/L Carbon Dioxide (21-32) mmol/L Anion Gap (3-11) BUN (7-18) mg/dl Creatinine (0.6-1.4) mg/dl Est Cr Clr Drug Dosing ml/min Est GFR ( Amer) Est GFR (Non-Af Amer) BUN/Creatinine Ratio (10-20) Glucose (70-99) mg/dl Lactate 1.6 (0.4-2.0) mmol/L Calcium (8.5-10.1) mg/dl Total Bilirubin (0.2-1) mg/dl AST (15-37) U/L ALT (12-78) U/L Alkaline Phosphatase (45-117) U/L Troponin I (0-0.045) ng/ml Total Protein (6.4-8.2) gm/dl Albumin (3.4-5.0) gm/dl Globulin (2.5-4.0) gm/dl Albumin/Globulin Ratio (0.9-2) Lipase (73-393) U/L Imaging Data Radiologist's Impression: Radiology results as stated below per my review and the radiologist's interpretation: XR chest 1V portable CLINICAL HISTORY: Chest pain. COMPARISON STUDY: Chest CT October 27, 2018. Chest radiograph November 22, 2018. FINDINGS: Left subclavian pacer/AICD is in place. There is no pneumothorax. There are small bilateral pleural effusions. Pulmonary edema is noted. Left basilar opacity is present. These findings have progressed since prior exam. IMPRESSION: 1. Moderate pulmonary edema. 2. Small bilateral pleural effusions and left basilar opacity which may reflect pneumonia or atelectasis. Radiographic follow-up to ensure resolution is recommended. Electronically signed by: Jan Dunham M.D. 01/11/2019 1:47 PM ECG Data Attestation: I personally reviewed and interpreted this ECG as follows: Indication: other (atrially sensed v-paced rhythm) Rate (beats per minute): 70 Findings: + PVC (occasional); no ST depression, no ST elevation and no acute ischemic change Blood Pressure Blood Pressure Findings: Elevated blood pressure Blood Pressure Disposition: further management by hospitalist MDM Narrative The patient is a pleasant 84-year-old gentleman with a past medical history of CKD, nonischemic cardiomyopathy status post AICD PPM in October who presents emergency department for evaluation of concern for pocket infection of the patient's device after being seen by his EP/grievance and appeals coordinator, Dr. Zamorano, per hpi. Patient reports he noticed redness and swelling over the past couple of days. On arrival the patient is no acute distress, afebrile stable vital signs. On exam the patient has fluctuance overlying his device with erythema and warmth. There is no crepitus. EKG is paced. Chest x-ray with mild pulmonary edema and small bilateral pleural effusions. WBC within normal limits. H/H 11.5/34.5 similar to prior values. Platelets within normal limits. Chemistry without acidosis. Electrolytes and LFTs unremarkable. Troponin within normal limits. I did discuss the case with Dr. Zamorano who had called to provide further information. She expressed her concern for possible pocket infection and recommended admission for blood cultures and IV antibiotics. Dr. Henderson [facility] grievance and appeals coordinator who will be on-call this evening is already aware of the patient. Blood cultures and broad spectrum ABX ordred. Case was discussed with Dr. Cuellar, [facility] hospitalist, who evaluate the patient for admission and further cardiology consultation. Impression & Plan Cellulitis, Infection of pacemaker pocket Discharge Plan Visit Data *Final* Discharge Date/Time: 01/11/19 15:18 Chief Complaint: Infection, Wound ED Provider: Jered Buchanan Discharge Problem: Cellulitis, Infection of pacemaker pocket Patient Disposition: Admitted As Inpatient Discharge Instructions Interventions: ED Discharge Assessment Last Done: 01/11/19 15:18 Discharge Problem: Infection of pacemaker pocket Qualifiers: Encounter type: initial encounter Qualified Code(s): T82.7XXA - Infection and inflammatory reaction due to other cardiac and vascular devices, implants and grafts, initial encounter The scribe's documentation has been prepared under my direction and personally reviewed by me in its entirety. I confirm that the note above accurately reflects all work, treatment, procedures, and medical decision making performed by me.
[2019-01-12] MEDS: PIPERACILLIN/TAZOBACTAM 3.375 GM in DEXTROSE 5% 100 ML IV SCH ×3 (04:06→20:18)
--- NOTE | 2019-01-12 06:41 | Hospitalist Progress Note ---
Date of Service January 12, 2019 Assessment & Plan (1) Infection of pacemaker pocket: Suspected infection of ICD/biventricular pacemaker pocket. Afebrile. Does not appear to be septic. Blood cultures obtained in ED and patient was started on intravenous piperacillin/tazobactam and vancomycin. Further management per Cardiology. (2) Biventricular cardiac pacemaker in situ: Status post placement of ICD/biventricular pacemaker. Management per Cardiology. (3) NSVT (nonsustained ventricular tachycardia): History of nonsustained ventricular tachycardia. Continue amiodarone. (4) Nonischemic cardiomyopathy: Diagnosed with a nonischemic cardiomyopathy with left ventricular ejection fraction around 30%. Chest x-ray showed COPD with probable superimposed pulmonary edema. Probable acute on chronic left ventricular systolic heart failure. No need to repeat echocardiogram at this time unless recommended by Cardiology. Continue metoprolol succinate and lisinopril. Furosemide 20 mg daily. (5) Hypertension: Continue metoprolol succinate, lisinopril, doxazosin. (6) COPD, mild: Pulmonary status stable. Oxygenating well on room air. (7) BPH (benign prostatic hyperplasia): Continue doxazosin. (8) DVT prophylaxis: SQ heparin; hold for surgical procedures. Ambulate. (9) Discharge planning issues: Anticipated discharge to home. Primary care follow-up with Dr. Lopez. Cardiology follow-up with Dr. Henderson. labs checked ROS-No Headache, No Visual Changes, No Nausea, No Vomiting, No Fever, No Chills, No Neck Pain or Stiffness, No Chest Pain, No Palpitations, No SOB, No CONNELLY, No Cough, No Sputum, No Wheezing, No Abdominal Pain, No Diarrhea, No Hematemesis, No Hemoptysis, No Unexpected Weight Loss, No Flank pain, No Melena, No Hematochezia, No Frequency, No Urgency, No Burning, No Hematuria, No Rashes, No Diaphoresis. Appetite is Normal, sore pacer pocket L upper chest Physical Exam Gen-AAO x 3, NAD, Afebrile Head-NCAT, EOMI, PERRLA, Anicteric Sclera, No Posterior Pharyngeal Erythema Neck-Supple, No JVD, No Thyromegaly, No Masses, No LAD, No Bruits Lungs-Clear to Auscultation Bilaterally, No Rales, No Rhonchi, No Wheezing, No Crepitus Chest-No S4, +S1, +S2, No S3, No Murmurs, No Rubs, No Gallops, No Ectopy, sore pacer pocket L upper chest c erythema and is fluctuant Abdomen-Soft, Bowel Sounds Present, Non Tender, Non Distended, No Hepatomegaly, No Splenomegaly, No Palpable Masses, No Rebound, No Rigidity, No Guarding Musculoskeletal-Full Range of Motion Bilaterally, No CVAT Extremities-No Cyanosis, No Clubbing, No Edema Nuero-Cranial Nerves II-XII grossly intact, Motor WNL, DTRs WNL, Strength WNL, Non Focal Psych-Normal Mood Results & Data Vital Signs (Past 12 Hours) Vital Signs Temp Pulse Pulse Resp BP Pulse Ox 01/12/19 03:30 36.7 C 65 18 157/70 H 92 01/12/19 00:00 67 01/11/19 22:19 36.8 C 67 18 163/71 H 95 01/11/19 18:58 36.8 C 61 18 140/61 97 Current Diagnoses Essential (primary) hypertension (01/11/19) Other cardiomyopathies (01/11/19) Ventricular tachycardia (01/11/19) Chronic obstructive pulmonary disease, unspecified (01/11/19) Benign prostatic hyperplasia without lower urinary tract symptoms (01/11/19) Infection and inflammatory reaction due to other cardiac and vascular devices, implants and grafts, initial encounter (01/11/19) Encounter for administrative examinations, unspecified (01/11/19) Encounter for prophylactic measures, unspecified (01/11/19) Presence of cardiac pacemaker (01/11/19) Allergies No Known Allergies Allergy (Unknown, Verified 01/11/19 14:08) Height/Weight/Isolation Height 5 ft 9 in Weight 57.3 kg Chemistry 01/11/19 14:08 Sodium 133 L Potassium 4.0 Chloride 99 Carbon Dioxide 28 Anion Gap 6.0 BUN 13 Creatinine 1.06 Glucose 101 H Microbiology 01/11/19 14:08 Blood Aerobic Blood Culture - Pending 01/11/19 14:08 Blood Anaerobic Blood Culture - Pending 01/11/19 13:37 Blood Aerobic Blood Culture - Pending 01/11/19 13:37 Blood Anaerobic Blood Culture - Pending (1) Infection of pacemaker pocket Encounter type: initial encounter Qualified Code(s): T82.7XXA - Infection and inflammatory reaction due to other cardiac and vascular devices, implants and grafts, initial encounter
[2019-01-12] MEDS: FLUTICASONE PROPIONATE NA SPR 16 GM BTL SCH ×2 (07:52→20:19)
[2019-01-12] MEDS: HEPARIN SOD 5,000 UNIT/0.5 ML VIAL SQ SCH ×2 (07:53→20:20)
[2019-01-12] MEDS: LACTOBACILLUS ACIDOPHILUS (FLORANEX) TAB PO SCH ×3 (09:00→17:14)
[2019-01-12] MEDS ORDERED: FUROSEMIDE 20 MG TAB PO SCH (09:00)
[2019-01-12] MEDS: VANCOMYCIN HCL 1,000 MG in SODIUM CHLORIDE 0.9% 250 ML IV SCH (09:39)
--- NOTE | 2019-01-12 10:12 | Cardiology Consultation ---
Date of Consultation January 12, 2019 Assessment & Plan (1) Infection of pacemaker pocket: (2) Biventricular cardiac pacemaker in situ: (3) Nonischemic cardiomyopathy: Patient with acute on chronic heart failure with reduced ejection fraction due to nonischemic cardia myopathy in the setting of left bundle branch block. Dual-chamber biventricular pacemaker AICD placed just under 2 months ago on 11/21/2018. Patient describes that he has not felt a significant improvement in his activity tolerance since placement of the device, with noted ongoing dyspnea with activity such as climbing stairs. He denies any constitutional symptoms, and does not appear to be acutely infected, but the findings of swelling adjacent to and over top of his device are certainly concerning for hematoma that would put him at risk for infection. Continue empiric broad-spectrum antibiotics, vancomycin and Zosyn. Monitor blood cultures. Given findings of small pleural effusions on baseline chest x-ray, will discontinue oral furosemide in favor of IV furosemide 20 mg daily to keep his intake and output even given need for significant fluid administration with the IV antibiotics. Continue medication therapy for cardiomyopathy including metoprolol, lisinopril. Continue atorvastatin given nonobstructive CAD and peripheral vascular disease. Continue amiodarone for suppression of PVCs, nonsustained VT. Proceed with transthoracic echocardiogram to reassess his LV systolic dysfunction, and to screen for vegetation. Will consider need for transesophageal echocardiogram early next week to interrogate the leads/valves to rule out vegetation. If ongoing concern for infection persists after conservative measures, consideration toward device extraction will be made. Continue SQ heparin for DVT prophylaxis. I called pt's spouse Pushpa, phone, and updated her. With the patient's permission, I callled his daughter, aDmaris, phone [phone]. She did not answer and I left her a voicemail and will attempt to reach her again. History of Present Illness Attending Physician: Pineda Ramirez, DO History of Present Illness Krzysztof Victoria is an 84 year old male seen in general cardiology consultation per the request of Dr Arora for evaluation of concern of pacemaker AICD pocket infection. The patient had been seen in cardiac device clinic follow up yesterday by Dr Zamorano of [facility] Electrophysiology Cardiology and due to concerns of swelling of the left infraclavicular pacemaker pocket, the patient was referred to the hospital for further assessment. He has been afebrile since presentation, and blood cultures revealed no growth thus far. At present he is comfortable. He denies any pain. The predominant rhythm noted at the time of the device interrogation yesterday 01/11/2019 was normal sinus rhythm with intact AV node function. The patient was atrial paced 73% of the time and ventricular paced 97% the time. The patient is a long-standing history of a left bundle branch block, with previously noted preserved left ventricular systolic function. In October, he presented to [facility] and was hospitalized with a complaint of several months of worsening fatigue and shortness of breath. An echocardiogram was performed and interpreted by the undersigned that revealed left ventricular systolic dysfunction with an ejection fraction in the range of 30 to 34% with significant left ventricular dyssynchrony noted by 2D appearance on the echocardiogram. The patient's medications were adjusted and he underwent cardiac catheterization with findings of widely patent coronary anatomy and therefore it was felt that he had a nonischemic cardia myopathy. The patient was discharged on appropriate medication therapy and post discharge he was seen in electrophysiology consultation and had undergone implantation of a [employer]tronic biventricular AICD on 11/21/2018 in the left infraclavicular position at [facility]. At the time of his follow-up visit with mn on 11/30/2018, he described pain in his left axilla and when moving his left arm. Significant pocket ecchymosis was noted on physical exam consistent with hematoma. The patient was on aspirin at that time and not on systemic anticoagulation. A pressure bandage was placed, medications were provided for pain control, and close follow-up was arranged. The patient was seen on 12/07/[address] Montes De Oca of and a 2-week course of oral antibiotic therapy with Bactrim was prescribed. The patient states that in the interim, the swelling around his device had improved, but had recently worsened again as noted yesterday. Allergies Allergy/AdvReac Type Severity Reaction Status Date / Time No Known Allergies Allergy Unknown Verified 01/11/19 14:08 Home Medications Home Medications Medication Instructions Recorded Confirmed Type aspirin 81 mg PO QDL 10/27/18 01/11/19 History atorvastatin 10 mg PO QDL 10/27/18 01/11/19 History doxazosin 2 mg PO QDL 10/27/18 01/11/19 History fluticasone propionate 2 spray INTRANASAL BID 10/27/18 01/11/19 History lisinopril 40 mg PO QDL 10/27/18 01/11/19 History metoprolol succinate 25 mg PO QDL 10/27/18 01/11/19 History mirtazapine 45 mg PO HS 10/27/18 01/11/19 History amiodarone 200 mg PO QDL 11/15/18 01/11/19 History Patient History Medical History Biventricular cardiac pacemaker in situ (Chronic) NSVT (nonsustained ventricular tachycardia) (Chronic) Moderate protein-calorie malnutrition (Chronic) Nonischemic cardiomyopathy (Chronic) Pt admitted for BiV ICD due to NICM, LBBB and Chronic systolic HF-NYHA Class III. Underwent procedure without any complications; monitored overnight and discharged home. 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 11/01/18 = widely patent coronary arteries History of total left hip replacement (Chronic) History of tonsillectomy and adenoidectomy (Chronic) History of cataract surgery (Chronic) BILATERAL History of appendectomy (Chronic) History of cardiac cath SEPTEMBER 2018 AT [facility] NO STENTS History of colonoscopy Family History Mother Hypertension Brother FHx: myocardial infarction HALF-BROTHER Social History Preferred Language: Faroese Communication Ability: Effective Caustic Liquor Maker Required: No Beliefs That Will Affect Care: None marital status: Current Living Situation: Spouse Current Living Situation Comment: GRANDDAUGHTER current occupational status: retired Other Information That Helps Us Care for You: No Feels Safe at Home: Yes Safety Concerns: Feels Safe At This Time Smoking Status: Former smoker Tobacco Type: cigarettes ; Cigarettes Per Day: 20 ; Do You Dip or Chew Tobacco: No ; Second Hand Exposure: No ; Tobacco Cessation Education Requested by Patient: No Hx Alcohol Use: No Hx Substance Use: No Review of Systems Review of Systems: All systems reviewed & are unremarkable except as noted in HPI & below Physical Exam Physical Exam: Temp Pulse Resp BP Pulse Ox 36.7 C 57 L 20 128/70 93 01/12/19 07:00 01/12/19 07:00 01/12/19 07:00 01/12/19 07:00 01/12/19 07:00 Constitutional: + cachectic No acute distress, chronically ill in appearance Respiratory: normal respiratory effort, lungs clear to auscultation Cardiovascular: RRR, no murmur, no edema Vessels: no JVD Extremities: no edema Chest (Breasts): Additional Comments: Left infraclavicular pocket is mildly erythematous around the border of the device, the incision is clean dry and intact, with mild scabbing, granulation tissue, but the incision is well approximated. Soft tissue swelling is noted adjacent to the periphery of the device as well as on top of the device. Gastrointestinal (Abdomen): normal bowel sounds, soft, nontender, no hepatosplenomegaly Neurologic: PERRL, EOMI, accommodation nl, no face palsy, no dysarthria Results & Data Vital Signs (Past 12 Hours) Vital Signs Temp Pulse Pulse Resp BP Pulse Ox 01/12/19 07:00 36.7 C 57 L 20 128/70 93 01/12/19 03:30 36.7 C 65 18 157/70 H 92 01/12/19 00:00 67 01/11/19 22:19 36.8 C 67 18 163/71 H 95 Laboratory Results Cardiac Enzymes 01/11/19 Range/Units 14:08 AST 16 (15-37) U/L Troponin I 0.037 (0-0.045) ng/ml Coagulation 01/11/19 Range/Units 14:08 PT 11.4 (9.0-12.0) Seconds CBC 01/11/19 Range/Units 14:08 WBC 9.74 (4.8-10.8) K/uL RBC 3.44 L (4.7-6.1) M/uL Hgb 11.5 L (14.0-18.0) g/dL Hct 34.5 L (42-52) % Plt Count 174 (130-400) K/uL Neut # (Auto) 7.93 H (1.4-6.5) K/uL Lymph # (Auto) 0.91 L (1.2-3.4) K/uL Mower # (Auto) 0.75 H (0.11-0.59) K/uL Eos # (Auto) 0.06 (0-0.5) K/uL Baso # (Auto) 0.07 (0-0.2) K/uL Comprehensive Metabolic Panel 01/11/19 Range/Units 14:08 Sodium 133 L (136-145) mmol/L Potassium 4.0 (3.5-5.1) mmol/L Chloride 99 (98-107) mmol/L Carbon Dioxide 28 (21-32) mmol/L BUN 13 (7-18) mg/dl Creatinine 1.06 (0.6-1.4) mg/dl Glucose 101 H (70-99) mg/dl Calcium 8.8 (8.5-10.1) mg/dl AST 16 (15-37) U/L ALT 20 (12-78) U/L Alkaline Phosphatase 79 (45-117) U/L Total Protein 7.3 (6.4-8.2) gm/dl Albumin 3.2 L (3.4-5.0) gm/dl Intake and Output 01/11/19 01/12/19 01/12/19 22:59 06:59 14:59 Intake Total 525 / 760 115 / 760 115 / 115 Output Total 500 / 500 Balance 525 / 260 -385 / 260 115 / 115 Intake: IV 525 / 760 115 / 760 115 / 115 Zosyn 3.375 gm In D5 100 ml @ 115 / 115 115 / 115 28.75 mls/hr IV Q8H [facility] Rx#: [id number] Vancomycin HCl 1,250 mg In Nss 525 / 525 500 ml @ 200 mls/hr IV NOW ONE Rx#:[id number] Output: Urine 500 / 500 Other: Weight 57.3 kg 54.5 kg Diagnostic Findings Recent device interrogation as summarized above EKG performed 01/11/2019 reviewed independently: Atrial sensed ventricular paced rhythm at 70 bpm, with occasional PVCs Summary of radiology report of chest x-ray performed 01/11/2019: Moderate pulmonary edema, small bilateral pleural effusions. The left infraclavicular AICD leads are positioned appropriately. Medications Administered Current Inpatient Medications Acetaminophen (Tylenol) 650 mg PO Q4H PRN PRN Reason: pain/fever Stop: 02/10/19 15:35 Amiodarone HCl (Cordarone) 200 mg PO QDL [facility] Stop: 02/11/19 11:29 Aspirin (Ecotrin Ectab) 81 mg PO QDL CANDICE Stop: 02/11/19 11:29 Atorvastatin Calcium (Lipitor) 10 mg PO QDL CANDICE Stop: 02/11/19 11:29 Doxazosin Mesylate (Cardura) 2 mg PO QDL [facility] Stop: 02/11/19 11:29 Fluticasone Propionate (Flonase) 2 sprays NA BID CANDICE Stop: 02/10/19 20:59 Last Admin: 01/12/19 07:52 Dose: 2 sprays Documented by: Furosemide (Lasix) 20 mg PO QAM [facility] Stop: 02/11/19 08:59 Last Admin: 01/12/19 07:53 Dose: 20 mg Documented by: Heparin Sodium (Porcine) (Heparin Sodium (Porcine)) 5,000 units SQ Q12 [facility] Stop: 02/10/19 20:59 Last Admin: 01/12/19 07:53 Dose: 5,000 units Documented by: Piperacillin Sod/Tazobactam (Sod 3.375 gm/ Dextrose) 115 mls @ 28.75 mls/hr IV Q8H [facility]; Protocol Stop: 01/21/19 19:59 Last Infusion: 01/12/19 08:04 Dose: Infused Documented by: Vancomycin HCl 1,000 mg/ (Sodium Chloride) 270 mls @ 125 mls/hr IV Q18H [facility] Stop: 01/22/19 09:59 Last Admin: 01/12/19 09:39 Dose: 125 mls/hr Documented by: Lactobacillus Acidophilus (Floranex) 4 tab PO TIDM CANDICE Stop: 02/11/19 07:59 Last Admin: 01/12/19 09:00 Dose: 4 tab Documented by: Lisinopril (Zestril) 40 mg PO QDL [facility] Stop: 02/11/19 11:29 Metoprolol Succinate (Toprol Xl) 25 mg PO QDL [facility] Stop: 02/11/19 11:29 Mirtazapine (Remeron Solutab) 45 mg PO HS [facility] Stop: 02/10/19 20:59 Last Admin: 01/11/19 20:44 Dose: 45 mg Documented by: Miscellaneous Information (Consult) 1 ea N/A UD PRN PRN Reason: Consult Stop: 02/10/19 13:45 Miscellaneous Information (Consult) 1 ea N/A UD PRN PRN Reason: Consult Stop: 02/10/19 13:45 (1) Infection of pacemaker pocket Encounter type: initial encounter Qualified Code(s): T82.7XXA - Infection and inflammatory reaction due to other cardiac and vascular devices, implants and grafts, initial encounter
[2019-01-12] MEDS: FUROSEMIDE 20 MG in SYRINGE 0 ML IV SCH (11:26)
[2019-01-12] MEDS: ASPIRIN 81 MG ECTAB PO SCH (11:26)
[2019-01-12] MEDS: AMIODARONE 200 MG TAB PO SCH (11:27)
[2019-01-12] MEDS: ATORVASTATIN 10 MG TAB PO SCH (11:27)
[2019-01-12] MEDS: LISINOPRIL 40 MG TAB PO SCH (11:27)
[2019-01-12] MEDS: DOXAZosin MESYLATE TAB 2 MG TAB PO SCH (11:27)
[2019-01-12] MEDS: METOPROLOL SUCC 25MG EXT REL TAB PO SCH (11:27)
[2019-01-12] MEDS: MIRTAZAPINE SOLTAB 15 MG PO SCH (22:53)
[2019-01-13] MEDS ORDERED: VANCOMYCIN TROUGH ONE (03:30)
[2019-01-13 04:08] LABS: BUN Creatinine Ratio 11.3 (10-20); Calcium 8.5 mg/dl (8.5-10.1); Creatinine Clr Calc Pharmacy 32.9 ml/min; Est GFR (African American) 57.9; Potassium 3.5 mmol/L (3.5-5.1)
[2019-01-13] MEDS: VANCOMYCIN HCL 1,000 MG in SODIUM CHLORIDE 0.9% 250 ML IV SCH (04:12)
[2019-01-13] MEDS: PIPERACILLIN/TAZOBACTAM 3.375 GM in DEXTROSE 5% 100 ML IV SCH ×2 (04:12→12:39)
--- NOTE | 2019-01-13 07:25 | Hospitalist Progress Note ---
Date of Service January 13, 2019 Assessment & Plan (1) Infection of pacemaker pocket: Suspected infection of ICD/biventricular pacemaker pocket. Afebrile. Does not appear to be septic. Blood cultures obtained in ED and patient was started on intravenous piperacillin/tazobactam and vancomycin. Further management per Cardiology. (2) Biventricular cardiac pacemaker in situ: Status post placement of ICD/biventricular pacemaker. Management per Cardiology. (3) NSVT (nonsustained ventricular tachycardia): History of nonsustained ventricular tachycardia. Continue amiodarone. (4) Nonischemic cardiomyopathy: Diagnosed with a nonischemic cardiomyopathy with left ventricular ejection fraction around 30%. Chest x-ray showed COPD with probable superimposed pulmonary edema. Probable acute on chronic left ventricular systolic heart failure. No need to repeat echocardiogram at this time unless recommended by Cardiology. Continue metoprolol succinate and lisinopril. Furosemide 20 mg daily. (5) Hypertension: Continue metoprolol succinate, lisinopril, doxazosin. (6) COPD, mild: Pulmonary status stable. Oxygenating well on room air. (7) BPH (benign prostatic hyperplasia): Continue doxazosin. (8) DVT prophylaxis: SQ heparin; hold for surgical procedures. Ambulate. (9) Discharge planning issues: Anticipated discharge to home. Primary care follow-up with Dr. Lopez. Cardiology follow-up with Dr. Henderson. labs checked ROS-No Headache, No Visual Changes, No Nausea, No Vomiting, No Fever, No Chills, No Neck Pain or Stiffness, No Chest Pain, No Palpitations, No SOB, No CONNELLY, No Cough, No Sputum, No Wheezing, No Abdominal Pain, No Diarrhea, No Hematemesis, No Hemoptysis, No Unexpected Weight Loss, No Flank pain, No Melena, No Hematochezia, No Frequency, No Urgency, No Burning, No Hematuria, No Rashes, No Diaphoresis. Appetite is Normal Physical Exam Gen-AAO x 3, NAD, Afebrile Head-NCAT, EOMI, PERRLA, Anicteric Sclera, No Posterior Pharyngeal Erythema Neck-Supple, No JVD, No Thyromegaly, No Masses, No LAD, No Bruits Lungs-Clear to Auscultation Bilaterally, No Rales, No Rhonchi, No Wheezing, No Crepitus Chest-No S4, +S1, +S2, No S3, No Murmurs, No Rubs, No Gallops, No Ectopy, sore pacer pocket L upper chest c erythema and is fluctuant, no real change from 01/12 Abdomen-Soft, Bowel Sounds Present, Non Tender, Non Distended, No Hepatomegaly, No Splenomegaly, No Palpable Masses, No Rebound, No Rigidity, No Guarding Musculoskeletal-Full Range of Motion Bilaterally, No CVAT Extremities-No Cyanosis, No Clubbing, No Edema Nuero-Cranial Nerves II-XII grossly intact, Motor WNL, DTRs WNL, Strength WNL, Non Focal Psych-Normal Mood Results & Data Vital Signs (Past 12 Hours) Vital Signs Temp Pulse Resp BP Pulse Ox 01/13/19 04:00 36.7 C 62 18 131/64 94 01/12/19 23:40 36.6 C 60 18 147/56 H 96 (1) Infection of pacemaker pocket Encounter type: initial encounter Qualified Code(s): T82.7XXA - Infection and inflammatory reaction due to other cardiac and vascular devices, implants and grafts, initial encounter
[2019-01-13] MEDS: FUROSEMIDE 20 MG in SYRINGE 0 ML IV SCH (08:22)
[2019-01-13] MEDS: FLUTICASONE PROPIONATE NA SPR 16 GM BTL SCH (08:22)
[2019-01-13] MEDS: LACTOBACILLUS ACIDOPHILUS (FLORANEX) TAB PO SCH ×3 (08:23→16:59)
[2019-01-13] MEDS: HEPARIN SOD 5,000 UNIT/0.5 ML VIAL SQ SCH (08:23)
--- NOTE | 2019-01-13 10:24 | Pharmacy Report ---
Pharmacy Abx Dose Short Note - Date of Service January 13, 2019 - Assessment & Plan Assessment 84 year old M receiving Vancomycin/Zosyn for treatment of wound around pacer implant Day # 3 of antimicrobial therapy. Plan Laboratory Tests 01/13/19 03:28 Vancomycin Trough 11.4 Vancomycin * Trough level of 11.4 mcg/mL is subtherapeutic * Change to 1000 mg IV every 16 hours * Goal trough level ~ 15 mcg/mL * Trough level ordered for: 01/15/19 @0330 Pharmacy will continue to follow and will adjust dose/frequency as necessary. Thank you.
--- NOTE | 2019-01-13 12:05 | Cardiology Progress Note ---
Date of Service January 13, 2019 Assessment & Plan (1) Infection of pacemaker pocket: Concern for biventricular pacemaker AICD pocket infection. 1/2 blood cultures now preliminarily revealing Gram Positive bacilli. Given appearance of pocket, probability of infection , or risk of progressing to infection is high. I had long discussion with patient in person, and daughter, Damaris , by phone. I recommend transfer to [facility] for consideration of device extraction. I believe this procedure is best performed in a tertiary center given pt's frailty and severe cardiomyopathy, with onsite CT surgery availability. Pt and family agreeable. (2) Nonischemic cardiomyopathy: Repeat TTecho performed 01/14 reveals ongoing severe LV systolic dysfunction, 7 weeks post start of [employer] , it is early but suggests lack of response to [employer]. Continue current medications. Subjective Chief Complaint: follow up , swelling of pacemaker / AICD pocket Subjective: Patient resting comfortably. No subjective or objective evidence of fever. Review of Systems Review of Systems: All systems reviewed & are unremarkable except as noted in HPI & below Physical Exam Physical Exam: Temp Pulse Resp BP Pulse Ox 36.9 C 79 20 138/57 L 98 01/13/19 11:00 01/13/19 11:00 01/13/19 11:00 01/13/19 11:00 01/13/19 11:00 Constitutional: + cachectic no acute distress, chronically ill in ap pearance Respiratory: normal respiratory effort, lungs clear to auscultation Cardiovascular: RRR, no murmur, no edema Vessels: no JVD Chest (Breasts): Additional Comments: left infraclavicular pacemaker/ AICD pocket , mild erythema, radiating around periphery of the generator and toward the left axilla Soft tissue swelling. Neurologic: PERRL, EOMI, accommodation nl, no face palsy, no dysarthria Results & Data Vital Signs (Past 12 Hours) Vital Signs Temp Pulse Pulse Resp BP Pulse Ox 01/13/19 11:00 36.9 C 79 20 138/57 L 98 01/13/19 08:00 63 01/13/19 07:28 36.5 C 60 19 131/60 93 01/13/19 04:00 36.7 C 62 18 131/64 94 (1) Infection of pacemaker pocket Encounter type: initial encounter Qualified Code(s): T82.7XXA - Infection and inflammatory reaction due to other cardiac and vascular devices, implants and grafts, initial encounter
--- NOTE | 2019-01-13 12:22 | Discharge Summary ---
Date of Service January 13, 2019 Admission HPI Per Admitting Provider 84-year-old male with history of nonischemic cardiomyopathy, nonsustained ventricular tachycardia, and other problems noted below. Followed by Dr. Lopez for Family Medicine and Dr. Henderson for Cardiology. ICD with biventricular pacing placed by Dr. Zamorano on 11/21/18. Seen for EP follow-up with Dr. Zamorano on 12/07/18. Noted to have a pocket hematoma; trimethoprim / sulfa prescribed. Seen in clinic today for ICD/pacer check. There was concern about a possible infection of the ICD/pacemaker pocket and patient was referred to the ED for further evaluation and management. Patient noticed increased swelling around the device generator a few days ago. The pocket is a bit tender. No drainage. No fever, chills, sweats. Admission Exam Per Admitting Provider Constitutional: + thin; no acute distress Eyes: PERRL, conjunctivae normal, anicteric sclerae ENMT: external ear and nose normal, oropharynx normal hearing aide Neck: trachea midline, no thyromegaly Respiratory: no respiratory distress Auscultation: + wheezes (diffuse, mild) Cardiovascular: Rate/Rhythm: regular rate and regular rhythm Heart Sounds: no gallop, no murmur and no cardiac rub Vessels: no JVD Extremities: no calf tenderness and no edema distant heart sounds Chest (Breasts): Chest: + pacemaker (left infraclavicular; moderate swelling, mild erythema and tenderness) Gastrointestinal (Abdomen): normal bowel sounds, soft, nontender, no hepatosplenomegaly Musculoskeletal: Head/Neck/Chest: neck supple Extremities: strength 5/5 throughout; no cyanosis Skin: no rashes, warm and dry Neurologic: PERRL, EOMI, no facial palsy, no dysarthria or aphasiapatellar DTR's 2/2 bilat Psychiatric: Orientation: alert and oriented x 3 Affect: euthymic affect Lymphatic: no cervical lymphadenopathy Principal Diagnosis (1) Infection of pacemaker pocket: (2) Biventricular cardiac pacemaker in situ: (3) NSVT (nonsustained ventricular tachycardia): (4) Nonischemic cardiomyopathy: (5) Hypertension: (6) COPD, mild: (7) BPH (benign prostatic hyperplasia): Discharge Exam ROS-No Headache, No Visual Changes, No Nausea, No Vomiting, No Fever, No Chills, No Neck Pain or Stiffness, No Chest Pain, No Palpitations, No SOB, No CONNELLY, No Cough, No Sputum, No Wheezing, No Abdominal Pain, No Diarrhea, No Hematemesis, No Hemoptysis, No Unexpected Weight Loss, No Flank pain, No Melena, No Hematochezia, No Frequency, No Urgency, No Burning, No Hematuria, No Rashes, No Diaphoresis. Appetite is Normal Physical Exam Gen-AAO x 3, NAD, Afebrile Head-NCAT, EOMI, PERRLA, Anicteric Sclera, No Posterior Pharyngeal Erythema Neck-Supple, No JVD, No Thyromegaly, No Masses, No LAD, No Bruits Lungs-Clear to Auscultation Bilaterally, No Rales, No Rhonchi, No Wheezing, No Crepitus Chest-No S4, +S1, +S2, No S3, No Murmurs, No Rubs, No Gallops, No Ectopy, sore pacer pocket L upper chest c erythema and is fluctuant, no real change from 01/12 Abdomen-Soft, Bowel Sounds Present, Non Tender, Non Distended, No Hepatomegaly, No Splenomegaly, No Palpable Masses, No Rebound, No Rigidity, No Guarding Musculoskeletal-Full Range of Motion Bilaterally, No CVAT Extremities-No Cyanosis, No Clubbing, No Edema Nuero-Cranial Nerves II-XII grossly intact, Motor WNL, DTRs WNL, Strength WNL, Non Focal Psych-Normal Mood Discharge Data Allergies Allergy/AdvReac Type Severity Reaction Status Date / Time No Known Allergies Allergy Unknown Verified 01/11/19 14:08 Consultations 01/11/19 13:46 ED Decision to Admit Stat 01/12/19 08:00 Consult Cardiology Routine Current Diagnoses Essential (primary) hypertension (01/11/19) Other cardiomyopathies (01/11/19) Ventricular tachycardia (01/11/19) Chronic obstructive pulmonary disease, unspecified (01/11/19) Benign prostatic hyperplasia without lower urinary tract symptoms (01/11/19) Infection and inflammatory reaction due to other cardiac and vascular devices, implants and grafts, initial encounter (01/11/19) Encounter for administrative examinations, unspecified (01/11/19) Encounter for prophylactic measures, unspecified (01/11/19) Presence of cardiac pacemaker (01/11/19) Allergies No Known Allergies Allergy (Unknown, Verified 01/11/19 14:08) Height/Weight/Isolation Height 5 ft 9 in Weight 53.7 kg Chemistry 01/11/19 01/13/19 14:08 03:28 Sodium 133 L 135 L Potassium 4.0 3.5 Chloride 99 98 Carbon Dioxide 28 30 Anion Gap 6.0 7.0 BUN 13 15 Creatinine 1.06 1.31 Glucose 101 H 84 Microbiology 01/11/19 14:08 Blood Aerobic Blood Culture - Preliminary Gram positive bacilli 01/11/19 14:08 Blood Anaerobic Blood Culture - Preliminary No growth in Anaerobic bottle after 24 hours. 01/11/19 13:37 Blood Aerobic Blood Culture - Preliminary No growth in Aerobic bottle after 24 hours. 01/11/19 13:37 Blood Anaerobic Blood Culture - Preliminary No growth in Anaerobic bottle after 24 hours. Hospital Course (1) Infection of pacemaker pocket: Suspected infection of ICD/biventricular pacemaker pocket. Afebrile. Does not appear to be septic. Blood cultures obtained in ED Pos GP Bacilli, on piperacillin/tazobactam and vancomycin. per Cardiology transfer to [facility]. (2) Biventricular cardiac pacemaker in situ: Transfer (3) NSVT (nonsustained ventricular tachycardia): History of nonsustained ventricular tachycardia. Continue amiodarone. (4) Nonischemic cardiomyopathy: Diagnosed with a nonischemic cardiomyopathy with left ventricular ejection fraction around 30%. Chest x-ray showed COPD with probable superimposed pulmonary edema. Probable acute on chronic left ventricular systolic heart failure. Continue metoprolol succinate and lisinopril. Furosemide 20 mg daily. (5) Hypertension: Continue metoprolol succinate, lisinopril, doxazosin. (6) COPD, mild: Pulmonary status stable. Oxygenating well on room air. (7) BPH (benign prostatic hyperplasia): Continue doxazosin. (8) DVT prophylaxis: SQ heparin; hold for surgical procedures. Ambulate. (9) Discharge planning issues: Transfer to [facility] today. Primary care follow-up with Dr. Lopez. Cardiology follow-up with Dr. Henderson. Total Time Total Time Spent Total Time Spent (In Minutes): 50 mins Total Time Includes: Examination of the Patient, Discharge Planning, Medication Reconciliation and Communication With Other Providers Discharge Plan Discharge Items Patient Disposition: Transfer Acute Care Hospital Reason For Visit: WOUND INFECTION Discharge Diagnosis: (1) Infection of pacemaker pocket: Gram Positive Bacilli on blood culture (2) Biventricular cardiac pacemaker in situ: (3) NSVT (nonsustained ventricular tachycardia): (4) Nonischemic cardiomyopathy: (5) Hypertension: (6) COPD, mild: (7) BPH (benign prostatic hyperplasia): Condition on Discharge: Fair Activity Comment: Ad johnson Lifting: None Bathing: No limitations Exercise/Sports: None Driving/Machine Use: None Weightbearing: Full weightbearing Non-emergency contact: Primary Care Provider and [employer] Folder Call non-emergency contact if: you have any medication questions Follow-up/Referrals: Taylor Lopez DO [Primary Care Provider] - (After DCd from [place]) Diet: Heart Healthy Addtl Attending Provider Instructions: Gram Pos Bacilli in blood came back today Patient is on Vancomycin and Zosyn-Continue please Repeat Blood Cultures Pending Studies at Discharge: No Stand-Alone Forms: My [facility] Skilled Items Patient informed of condition?: Yes DNR: No Discharge Level of Care: Other Communicable Disease: No Discharge Prognosis: Stable Lines: Peripheral IV Urinary Catheter: No Medications and DC Order Prescriptions: New heparin, porcine (PF) 5,000 unit/0.5 mL Syringe 5,000 unit subcut Q12 Qty: 5 RF: 0 vancomycin 1,000 mg recon soln 1,000 mg IV Q12H Qty: 10 RF: 0 piperacillin-tazobactam [Zosyn] 4.5 gram recon soln 3.375 gm IV Q8H 10 Days RF: 0 Continued atorvastatin 10 mg tablet 10 mg PO QDL RF: 0 aspirin 81 mg Tablet,Delayed Release (Dr/Ec) 81 mg PO QDL RF: 0 mirtazapine 45 mg tablet 45 mg PO HS RF: 0 metoprolol succinate 25 mg tablet extended release 24 hr 25 mg PO QDL RF: 0 lisinopril 40 mg tablet 40 mg PO QDL RF: 0 fluticasone propionate 50 mcg/actuation spray,suspension 2 spray intranasal BID RF: 0 doxazosin 2 mg tablet 2 mg PO QDL RF: 0 amiodarone 200 mg tablet 200 mg PO QDL RF: 0 Discharge Orders: Discharge Order (Routine); Ordered 01/13/19 Ordered By: Pineda Ramirez Admission Data Admit Date/Time: 01/11/19 14:28 Attending Provider: Pineda Ramirez Provider: Po Cuellar Primary Care Provider: Taylor Lopez Other Providers: Po Cuellar ; Marilou Zamorano
[2019-01-13] MEDS: ATORVASTATIN 10 MG TAB PO SCH (12:32)
[2019-01-13] MEDS: DOXAZosin MESYLATE TAB 2 MG TAB PO SCH (12:32)
[2019-01-13] MEDS: METOPROLOL SUCC 25MG EXT REL TAB PO SCH (12:32)
[2019-01-13] MEDS: ASPIRIN 81 MG ECTAB PO SCH (12:33)
[2019-01-13] MEDS: AMIODARONE 200 MG TAB PO SCH (12:33)
[2019-01-13] MEDS: LISINOPRIL 40 MG TAB PO SCH (12:33)
[2019-01-13] MEDS ORDERED: VANCOMYCIN HCL 1,000 MG in SODIUM CHLORIDE 0.9% 250 ML IV SCH (20:00)
[2019-01-15] MEDS ORDERED: VANCOMYCIN TROUGH ONE (03:30)
== END 2019-01-13 19:54 | disposition short-term general hospital (02) | DRG 314 ==
LOC: ED 12:57 → SUATTDRO 14:28 → 2N 14:28
DX: T82.7XXA Infection and inflammatory reaction due to other cardiac and vascular devices, implants and grafts, initial encounter; Z96.642 Presence of left artificial hip joint; J91.8 Pleural effusion in other conditions classified elsewhere; Y92.009 Unspecified place in unspecified non-institutional (private) residence as the place of occurrence of the external cause; N40.0 Benign prostatic hyperplasia without lower urinary tract symptoms; I42.9 Cardiomyopathy, unspecified; Z95.810 Presence of automatic (implantable) cardiac defibrillator; Y71.2 Prosthetic and other implants, materials and accessory cardiovascular devices associated with adverse incidents; I11.0 Hypertensive heart disease with heart failure; F32.9 Major depressive disorder, single episode, unspecified; J44.9 Chronic obstructive pulmonary disease, unspecified; I47.2 Ventricular tachycardia; Z87.891 Personal history of nicotine dependence; I44.7 Left bundle-branch block, unspecified; E78.5 Hyperlipidemia, unspecified; I50.23 Acute on chronic systolic (congestive) heart failure

== ENCOUNTER 2019-02-03 20:47 | Inpatient (IN) ==
[2019-02-03] MEDS ORDERED: MoRPHine SULFATE 4 MG/ML 1 ML CARP\\VIAL IV STA (21:21)
[2019-02-03] MEDS ORDERED: ONDANSETRON INJ 2 MG/ML 2 ML VIAL IV STA (21:21)
[2019-02-03] MEDS ORDERED: MoRPHine SULFATE 2 MG/ML CARP ONE (21:55)
--- NOTE | 2019-02-03 22:06 | CT Scan Report ---
CT SCAN OF THE ABDOMEN AND PELVIS WITHOUT CONTRAST CLINICAL HISTORY: Lower abdominal pain COMPARISON STUDY: 11/08/2017 TECHNIQUE: CT scan of the abdomen and pelvis was performed from the lung bases to the proximal femurs . Images are reviewed in the axial, sagittal, and coronal planes. IV contrast was not administered fo r this examination. A dose lowering technique was utilized adhering to the principles of ALARA. CT DOSE: 246.32 mGy.cm FINDINGS: Lower chest: There are moderate bilateral pleural effusions with associated basilar airspace opacitie s, likely atelectatic Liver: The unenhanced liver is normal in size, contour, and attenuation. There is no intrahepatic yi iary ductal dilatation. Gallbladder: Unremarkable. Spleen: Normal in size and attenuation. Pancreas: Unremarkable. Adrenal glands: There is bilateral adrenal gland thickening similar to the prior study and likely sec ondary to adenomatous hyperplasia Kidneys: No renal, ureteral, or bladder calculi are visualized. Bowel: Evaluation of bowel is limited given the absence of intravenous and oral contrast and the poss ibility of intra-abdominal fat. There are no transition zones indicate bowel obstruction. There is no acute diverticulitis. The appendix is not visualized. There are multiple fluid-filled bowel loops. T his could indicate an ileus. Peritoneum: There is a right inguinal hernia containing a bowel loop. There is no current evidence of obstruction Vasculature: There is no evidence of abdominal aortic aneurysm. There are extensive atheromatous calc ifications present. Adenopathy: None. Pelvic viscera: The bladder, and pelvic viscera are unremarkable. Skeletal structures: There are postsurgical changes of a total left hip arthroplasty. There appears t o be ankylosis of the visualized portions of the lower thoracic spine IMPRESSION: 1. Examination limited by the lack of intravenous and oral contrast 2. Moderate bilateral pleural effusions bilateral lower lobe airspace opacities likely representing c ompressive atelectasis 3. Multiple fluid-filled bowel loops, but no transition zones to indicate bowel obstruction. 4. No evidence of acute diverticulitis. Nonvisualization the appendix 5. Fat-containing right inguinal hernia, no current evidence of obstruction 6. No renal, ureteral, or bladder calculi identified.. Electronically signed by: Saud Wilcox M.D. 02/03/2019 10:05 PM
[2019-02-03 22:07] LABS: Basophils % (auto) 0.9 %; Eosinophils # (auto) 0.29 K/uL (0-0.5); Eosinophils % (auto) 2.7 %; Hematocrit (blood only) 39.4 % (42-52); Hemoglobin 13.5 g/dL (14.0-18.0); Immature Granulocytes # (auto) 0.03 K/uL (0.00-0.02); Immature Granulocytes % (auto) 0.3 %; Lymphocytes # (auto) 1.82 K/uL (1.2-3.4); Lymphocytes % (auto) 16.8 %; Mean Corpuscular Hemoglobin 33.7 pg (25-34); Mean Corpuscular Hgb Conc 34.3 g/dL (32-36); Mean Corpuscular Volume 98.3 fL (80-100); Mean Platelet Volume 11.4 fL (7.4-10.4); Monocytes # (auto) 0.66 K/uL (0.11-0.59); Monocytes % (auto) 6.1 %; Neutrophils # (auto) 7.94 K/uL (1.4-6.5); Neutrophils % (auto) 73.2 %; Platelet Count 224 K/uL (130-400); RDW Coefficient of Variation 13.2 % (11.5-14.5); RDW Standard Deviation 47.4 fL (36.4-46.3); Red Blood Count 4.01 M/uL (4.7-6.1); White Blood Count 10.84 K/uL (4.8-10.8)
[2019-02-03 22:15] LABS: Albumin Globulin Ratio 0.8 (0.9-2); Albumin Level 3.4 gm/dl (3.4-5.0); BUN Creatinine Ratio 12.6 (10-20); Bilirubin,Total 0.5 mg/dl (0.2-1); Calcium 9.2 mg/dl (8.5-10.1); Creatinine Clr Calc Pharmacy 33.8 ml/min; Est GFR (African American) 55.4; Est GFR (Non-African American) 47.8; Globulin 4.3 gm/dl (2.5-4.0); Potassium 3.8 mmol/L (3.5-5.1); Total Protein 7.7 gm/dl (6.4-8.2)
[2019-02-03 22:44] LABS: Appearance Urine Clear (Clear); Bacteria Urine Automated Negative (Negative); Bilirubin Urine Negative (Negative); Blood Urine Negative (Negative); Color Urine Dark Yellow; Epithelial Cell Urine Auto >30 /lpf (0-5); Glucose Urine UA Negative (Negative); Ketones Urine Negative (Negative); Leukocyte Esterase Urine Trace (Negative); Nitrite Urine Negative (Negative); Protein Urine Trace (Negative); RBC Urine Automated 0-4 /hpf (0-4); Specific Gravity Urine 1.021 (1.000-1.030); Urobilinogen Urine Negative (Negative); pH Urine 6.5 (4.5-7.5)
[2019-02-03] MEDS ORDERED: PIPERACILL/TAZOBAC CONSULT ACTIVE PRN (23:30)
[2019-02-03] MEDS ORDERED: PIPERACILLIN/TAZOBACTAM 4.5 GM/120 ML BAG IV ONE (23:30)
[2019-02-04 00:29] LABS: Partial Thromboplastin Ratio 0.9; Partial Thromboplastin Time 25.2 Seconds (21.0-31.0)
[2019-02-04 00:34] LABS: Magnesium 2.2 mg/dl (1.8-2.4); Troponin I 0.044 ng/ml (0-0.045)
--- NOTE | 2019-02-04 00:52 | Emergency Department Note ---
Entered by Jayson Molina acting as a scribe for Andrey Alvarez MD History of Present Illness General Chief complaint: Abdominal Pain Stated complaint: AB PAIN Source: patient History of Present Illness Onset (ago): hour(s) (this afternoon) Location: abdomen (lower) Pain Consistency: + constant Maximum Pain Intensity: 5 Quality: + sharp Relieved By: + none Exacerbated By: + none Associated symptoms: + denies other symptoms (blood in diarrhea) and + other (diarrhea, nausea, intermittent sweating); no chest pain and no shortness of breath The patient is an 84 y/o male w/ PMHx CJ, appendectomy, BPH, depression, HTN, COPD who presents to the ED w/ CC of constant, sharp, lower abdominal pain beginning this afternoon. The patient states his pain does not radiate to his back. He reports nothing makes it better and nothing makes it worse. The patient notes he has been nauseous with intermittent sweating. He states he developed diarrhea while in the ED. The patient reports he had an infected pacemaker that had to be removed a month ago. He notes he took his last dose of antibiotics a week ago. He denies blood in his diarrhea, chest pain, shortness of breath, and a history of these symptoms before. He does state he has had a slightly productive cough. Home Medications Home Medications Medication Instructions Recorded Confirmed Type aspirin 81 mg PO QAM 10/27/18 02/03/19 History atorvastatin 10 mg PO QAM 10/27/18 02/03/19 History doxazosin 2 mg PO QAM 10/27/18 02/03/19 History fluticasone propionate 2 spray INTRANASAL BID 10/27/18 02/03/19 History lisinopril 40 mg PO QAM 10/27/18 02/03/19 History metoprolol succinate 25 mg PO QAM 10/27/18 02/03/19 History mirtazapine 45 mg PO HS 10/27/18 02/03/19 History amiodarone 200 mg PO QAM 11/15/18 02/03/19 History Allergies Allergy/AdvReac Type Severity Reaction Status Date / Time No Known Allergies Allergy Unknown Verified 02/03/19 21:24 Past Med/Surg History Medical History Biventricular cardiac pacemaker in situ (Chronic) NSVT (nonsustained ventricular tachycardia) (Chronic) Moderate protein-calorie malnutrition (Chronic) Nonischemic cardiomyopathy (Chronic) Pt admitted for BiV ICD due to NICM, LBBB and Chronic systolic HF-NYHA Class III. Underwent procedure without any complications; monitored overnight and discharged home. 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 11/01/18 = widely patent coronary arteries History of total left hip replacement (Chronic) History of tonsillectomy and adenoidectomy (Chronic) History of cataract surgery (Chronic) BILATERAL History of appendectomy (Chronic) History of cardiac cath SEPTEMBER 2018 AT [facility] NO STENTS History of colonoscopy Family History Mother Hypertension Brother FHx: myocardial infarction HALF-BROTHER Social History Preferred Language: Armenian Communication Ability: Effective Hand Cigar Maker Required: No Beliefs That Will Affect Care: None marital status: Current Living Situation: Spouse Current Living Situation Comment: GRANDDAUGHTER current occupational status: retired Feels Safe at Home: Yes Smoking Status: Former smoker Tobacco Type: cigarettes ; Cigarettes Per Day: 20 ; Second Hand Exposure: No ; Hx Alcohol Use: No Hx Substance Use: No Review of Systems See HPI for pertinent positives & negatives. and A total of 10 systems reviewed and were otherwise negative Physical Exam Vital Signs Vital Signs - 24 hr 02/03/19 20:52 02/03/19 22:01 02/04/19 00:22 Temperature 36.6 C Temperature Source Oral Sepsis Recent Fever Within 48 Hours No Sepsis Action Taken by Nursing No Action Required Pulse Rate 58 L Pulse Rate [Bilateral] 58 L 58 L Pulse Rhythm Irregular Pulse Rhythm [Bilateral] Regular Regular Pulse Strength Normal Pulse Strength [Bilateral] Normal Normal Respiratory Rate 20 18 18 Respiratory Effort / Characteristics Non-Labored Spontaneous Non-Labored Spontaneous Non-Labored Spontaneous Respiratory Depth Normal Normal Normal Respiratory Pattern Regular Regular Regular Blood Pressure 128/52 L Blood Pressure [Right Arm] 143/59 H 122/50 L Blood Pressure Mean 77 Blood Pressure Mean [Right Arm] 87 74 Blood Pressure Position Sitting Blood Pressure Position [Right Arm] Sitting Sitting Pulse Oximetry 96 95 96 Oxygen Delivery Method Room Air Room Air Room Air Constitutional: Vital signs reviewed. Eyes: Pupils are equal round reactive to light. Conjunctiva are noninjected. ENT: Pharynx is clear without erythema or exudate. Mucous membranes are moist. Neck supple without meningeal signs. Respiratory: Clear to auscultation bilaterally. Breath sounds are equal bilaterally. Cardiovascular: Regular rate and rhythm. No rubs or gallops. GI: Soft, nondistended and RLQ tenderness to palpation without guarding. Bowel sounds are present. Musculoskeletal: No peripheral edema. No lower extremity tenderness. Integumentary: No cyanosis. Neurological: The patient is awake and alert. No focal deficits. Psychiatric: Normal affect. Course 2117: Past medical records reviewed. The patient was evaluated in room A10. A complete history and physical exam was performed. 2324: I reevaluated the patient. He states he has had a cough for the past few days. He notes his abdominal pain is better. 2331: Upon reevaluation, the patient is resting comfortably. I discussed laboratory and radiographic results with him. He verbalized agreement of the treatment plan. The patient will be evaluated for further management and care. 0000: I reviewed the patient's case with Dr. Galeana, [facility] Hospitalist. He will evaluate the patient for further management. Administered Medications Discontinued Medications Piperacillin Sod/Tazobactam Sod (Zosyn) 4.5 gm in 120 mls @ 240 mls/hr IV NOW ONE Stop: 02/03/19 23:59 Last Admin: 02/04/19 00:22 Dose: 240 mls/hr Documented by: [id number] Morphine Sulfate (Morphine Sulfate) 2 mg IV NOW STA Stop: 02/03/19 21:22 Last Admin: 02/03/19 21:58 Dose: Not Given Documented by: [id number] Morphine Sulfate (Morphine Sulfate) Confirm Administered Dose 2 mg .ROUTE .STK- MED ONE Stop: 02/03/19 21:56 Last Admin: 02/03/19 21:57 Dose: 2 mg Documented by: [id number] Ondansetron HCl (Zofran) 4 mg IV NOW STA Stop: 02/03/19 21:22 Last Admin: 02/03/19 21:58 Dose: 4 mg Documented by: [id number] Medical Decision Making Differential Diagnosis Differential diagnosis includes: diverticulitis, kidney stone, c-diff, enteritis, food borne illness, colitis Medical Records Attestation: I reviewed the patient's medical records. I did perform a limited focused review of portions of the patient's old chart on the electronic medical record. The patient was admitted in December for an infected pacemaker pocket. Home Medications Current Medication List: was personally reviewed by fl Laboratory Data Attestation: I reviewed the patient's lab results. Result diagrams: 02/03/19 21:23 02/03/19 21:23 Lab Results 02/03/19 02/03/19 02/03/19 Range/Units 21:23 21:23 21:23 WBC 10.84 H (4.8-10.8) K/uL RBC 4.01 L (4.7-6.1) M/uL Hgb 13.5 L (14.0-18.0) g/dL Hct 39.4 L (42-52) % MCV 98.3 (80-100) fL MCH 33.7 (25-34) pg MCHC 34.3 (32-36) g/dL RDW Std Deviation 47.4 H (36.4-46.3) fL RDW Coeff of Ty 13.2 (11.5-14.5) % Plt Count 224 (130-400) K/uL MPV 11.4 H (7.4-10.4) fL Immature Gran % (Auto) 0.3 % Neut % (Auto) 73.2 % Lymph % (Auto) 16.8 % [place] % (Auto) 6.1 % Eos % (Auto) 2.7 % Baso % (Auto) 0.9 % Immature Gran # (Auto) 0.03 H (0.00-0.02) K/uL Neut # (Auto) 7.94 H (1.4-6.5) K/uL Lymph # (Auto) 1.82 (1.2-3.4) K/uL [place] # (Auto) 0.66 H (0.11-0.59) K/uL Eos # (Auto) 0.29 (0-0.5) K/uL Baso # (Auto) 0.10 (0-0.2) K/uL APTT 25.2 (21.0-31.0) Seconds PTT Ratio 0.9 Sodium 134 L (136-145) mmol/L Potassium 3.8 (3.5-5.1) mmol/L Chloride 100 (98-107) mmol/L Carbon Dioxide 27 (21-32) mmol/L Anion Gap 7.0 (3-11) BUN 17 (7-18) mg/dl Creatinine 1.36 (0.6-1.4) mg/dl Est Cr Clr Drug Dosing 33.8 ml/min Est GFR ( Amer) 55.4 Est GFR (Non-Af Amer) 47.8 BUN/Creatinine Ratio 12.6 (10-20) Glucose 126 H (70-99) mg/dl Calcium 9.2 (8.5-10.1) mg/dl Magnesium 2.2 (1.8-2.4) mg/dl Total Bilirubin 0.5 (0.2-1) mg/dl AST 28 (15-37) U/L ALT 32 (12-78) U/L Alkaline Phosphatase 94 (45-117) U/L Troponin I 0.044 (0-0.045) ng/ml NT-Pro-B Natriuret Pep 3450 H (0-1800) pg/ml Total Protein 7.7 (6.4-8.2) gm/dl Albumin 3.4 (3.4-5.0) gm/dl Globulin 4.3 H (2.5-4.0) gm/dl Albumin/Globulin Ratio 0.8 L (0.9-2) Lipase 86 (73-393) U/L Specimen Hemolysis Urine Color Urine Appearance (Clear) Urine pH (4.5-7.5) Ur Specific [place] (1.000-1.030) Urine Protein (Negative) Urine Glucose (UA) (Negative) Urine Ketones (Negative) Urine Blood (Negative) Urine Nitrite (Negative) Urine Bilirubin (Negative) Urine Urobilinogen (Negative) Ur Leukocyte Esterase (Negative) Urine WBC (Auto) (0-5) /hpf Urine RBC (Auto) (0-4) /hpf U Hyaline Cast (Auto) (0-5) /lpf U Epithel Cells (Auto) (0-5) /lpf Urine Bacteria (Auto) (Negative) Stl C. diff Tox B Gene (Neg) 02/03/19 02/03/19 Range/Units 22:25 22:30 WBC (4.8-10.8) K/uL RBC (4.7-6.1) M/uL Hgb (14.0-18.0) g/dL Hct (42-52) % MCV (80-100) fL MCH (25-34) pg MCHC (32-36) g/dL RDW Std Deviation (36.4-46.3) fL RDW Coeff of Ty (11.5-14.5) % Plt Count (130-400) K/uL MPV (7.4-10.4) fL Immature Gran % (Auto) % Neut % (Auto) % Lymph % (Auto) % [place] % (Auto) % Eos % (Auto) % Baso % (Auto) % Immature Gran # (Auto) (0.00-0.02) K/uL Neut # (Auto) (1.4-6.5) K/uL Lymph # (Auto) (1.2-3.4) K/uL [place] # (Auto) (0.11-0.59) K/uL Eos # (Auto) (0-0.5) K/uL Baso # (Auto) (0-0.2) K/uL APTT (21.0-31.0) Seconds PTT Ratio Sodium (136-145) mmol/L Potassium (3.5-5.1) mmol/L Chloride (98-107) mmol/L Carbon Dioxide (21-32) mmol/L Anion Gap (3-11) BUN (7-18) mg/dl Creatinine (0.6-1.4) mg/dl Est Cr Clr Drug Dosing ml/min Est GFR ( Amer) Est GFR (Non-Af Amer) BUN/Creatinine Ratio (10-20) Glucose (70-99) mg/dl Calcium (8.5-10.1) mg/dl Magnesium (1.8-2.4) mg/dl Total Bilirubin (0.2-1) mg/dl AST (15-37) U/L ALT (12-78) U/L Alkaline Phosphatase (45-117) U/L Troponin I (0-0.045) ng/ml NT-Pro-B Natriuret Pep (0-1800) pg/ml Total Protein (6.4-8.2) gm/dl Albumin (3.4-5.0) gm/dl Globulin (2.5-4.0) gm/dl Albumin/Globulin Ratio (0.9-2) Lipase (73-393) U/L Specimen Hemolysis Urine Color Dark Yellow Urine Appearance Clear (Clear) Urine pH 6.5 (4.5-7.5) Ur Specific [place] 1.021 (1.000-1.030) Urine Protein Trace H (Negative) Urine Glucose (UA) Negative (Negative) Urine Ketones Negative (Negative) Urine Blood Negative (Negative) Urine Nitrite Negative (Negative) Urine Bilirubin Negative (Negative) Urine Urobilinogen Negative (Negative) Ur Leukocyte Esterase Trace H (Negative) Urine WBC (Auto) 1-5 (0-5) /hpf Urine RBC (Auto) 0-4 (0-4) /hpf U Hyaline Cast (Auto) 1-5 (0-5) /lpf U Epithel Cells (Auto) >30 H (0-5) /lpf Urine Bacteria (Auto) Negative (Negative) Stl C. diff Tox B Gene Negative Cdiff Gene (Neg) Imaging Data Attestation: I personally reviewed and interpreted this imaging study as follows: My Impression: XR chest 2V PA/lateral: Bilateral pleural effusion with bilateral infiltrates. Radiologist's Impression: Radiology results as stated below per my review and the radiologist's interpretation: CT SCAN OF THE ABDOMEN AND PELVIS WITHOUT CONTRAST CLINICAL HISTORY: Lower abdominal pain COMPARISON STUDY: 11/08/2017 TECHNIQUE: CT scan of the abdomen and pelvis was performed from the lung bases to the proximal femurs. Images are reviewed in the axial, sagittal, and coronal planes. IV contrast was not administered for this examination. A dose lowering technique was utilized adhering to the principles of ALARA. CT DOSE: 246.32 mGy.cm FINDINGS: Lower chest: There are moderate bilateral pleural effusions with associated basilar airspace opacities, likely atelectatic Liver: The unenhanced liver is normal in size, contour, and attenuation. There is no intrahepatic biliary ductal dilatation. Gallbladder: Unremarkable. Spleen: Normal in size and attenuation. Pancreas: Unremarkable. Adrenal glands: There is bilateral adrenal gland thickening similar to the prior study and likely secondary to adenomatous hyperplasia Kidneys: No renal, ureteral, or bladder calculi are visualized. Bowel: Evaluation of bowel is limited given the absence of intravenous and oral contrast and the possibility of intra-abdominal fat. There are no transition zones indicate bowel obstruction. There is no acute diverticulitis. The appendix is not visualized. There are multiple fluid-filled bowel loops. This could indicate an ileus. Peritoneum: There is a right inguinal hernia containing a bowel loop. There is no current evidence of obstruction Vasculature: There is no evidence of abdominal aortic aneurysm. There are extensive atheromatous calcifications present. Adenopathy: None. Pelvic viscera: The bladder, and pelvic viscera are unremarkable. Skeletal structures: There are postsurgical changes of a total left hip arthroplasty. There appears to be ankylosis of the visualized portions of the lower thoracic spine IMPRESSION: 1. Examination limited by the lack of intravenous and oral contrast 2. Moderate bilateral pleural effusions bilateral lower lobe airspace opacities likely representing compressive atelectasis 3. Multiple fluid-filled bowel loops, but no transition zones to indicate bowel obstruction. 4. No evidence of acute diverticulitis. Nonvisualization the appendix 5. Fat-containing right inguinal hernia, no current evidence of obstruction 6. No renal, ureteral, or bladder calculi identified.. Electronically signed by: Saud Wilcox M.D. 02/03/2019 10:05 PM ECG Data Attestation: I personally reviewed and interpreted this ECG as follows: Indication: abdominal pain Rate (beats per minute): 58 Rhythm: sinus bradycardia Findings: + LBBB, + PAC and + T-wave inversion (Inferior) Blood Pressure Blood Pressure Findings: Elevated blood pressure Blood Pressure Disposition: elevated BP felt to be situational MDM Narrative I did evaluate the patient as noted above. The patient is presenting with lower abdominal pain. He also had diarrhea here in the emergency department. I did send stool cultures as well as C. difficile testing. C. difficile testing was negative. IV access was established. The patient was placed on a continuous monitor worker. He was given IV morphine and Zofran for his discomfort. I did order and personally review the patient's 12-lead EKG as described above. He has bradycardia. I did order and review the patient's blood work as noted in the electronic medical record. His white count is elevated. I did order a CT of the abdomen and pelvis. I did review the images myself as well as the radiology report as described above. He has no acute process in the abdomen pelvis. He does have what appears to be bilateral effusions and infiltrates in his lower lungs. I did order and personally reviewed the images of the patient's chest x- ray as described above. He does have bilateral pleural effusions and infiltrates. I did order blood cultures. I also treated the patient with Zosyn. I did recommend hospitalization. I did discuss case with the hospitalist and case resource manager. Impression & Plan Pneumonia of both lower lobes, Pleural effusion, bilateral, Abdominal pain, lower, Bradycardia, Diarrhea Discharge Plan Visit Data Chief Complaint: Abdominal Pain Stated Complaint: AB PAIN ED Provider: Andrey Alvarez Discharge Problem: Pneumonia of both lower lobes, Pleural effusion, bilateral, Abdominal pain, lower, Bradycardia, Diarrhea Patient Disposition: Being Evaluated by Hospitalist Forms Stand Alone Forms: My [facility] Prescriptions Prescriptions: No Action atorvastatin 10 mg tablet 10 mg PO QAM RF: 0 aspirin 81 mg Tablet,Delayed Release (Dr/Ec) 81 mg PO QAM RF: 0 mirtazapine 45 mg tablet 45 mg PO HS RF: 0 metoprolol succinate 25 mg tablet extended release 24 hr 25 mg PO QAM RF: 0 lisinopril 40 mg tablet 40 mg PO QAM RF: 0 fluticasone propionate 50 mcg/actuation spray,suspension 2 spray intranasal BID RF: 0 doxazosin 2 mg tablet 2 mg PO QAM RF: 0 amiodarone 200 mg tablet 200 mg PO QAM RF: 0 Referrals Referrals: Taylor Lopez DO [Primary Care Provider] - Discharge Problem: Pneumonia of both lower lobes Qualifiers: Pneumonia type: due to unspecified organism Qualified Code(s): J18.1 - Lobar pneumonia, unspecified organism Diarrhea Qualifiers: Diarrhea type: unspecified type Qualified Code(s): R19.7 - Diarrhea, unspecified The scribe's documentation has been prepared under my direction and personally reviewed by me in its entirety. I confirm that the note above accurately reflects all work, treatment, procedures, and medical decision making performed by me.
--- NOTE | 2019-02-04 01:50 | History & Physical Report ---
Date of Service February 04, 2019 Assessment & Plan (1) HCAP (healthcare-associated pneumonia): Known aspiration risk No sepsis chronic systolic heart failure secondary to nonischemic cardiomyopathy (EF 37%, TTE 2019) sp ICD status post removal, Equivocal volume status, patient intravascularly dry following viral gastroenteritis illness as per my assessment despite pulmonary congestion on CXR CAD as per records hypertension, stable chronic LBBB as per records COPD, pulmonary hypertension as per records, lung status at baseline past tobacco/alcohol abuse as per records mood disorder, at baseline chronic anemia, hemoglobin at baseline Deconditioning Malnutrition (low BMI) GMF IV Unasyn Aspiration precautions, Speech therapy follow-up Nutrition consult RE low BMI PT OT eval DVT prophylaxis. Heparin subcu Full code History of Present Illness Chief Complaint: Abdominal pain,, diarrhea Primary Care Provider: Taylor Lopez, DO History obtained from patient and records. Medical history is significant for chronic systolic heart failure secondary to nonischemic cardiomyopathy (EF 37%, TTE 2019) sp ICD status post removal s econdary to infection, CAD as per records, hypertension, chronic LBBB as per records, COPD, pulmonary hypertension as per records, past tobacco/alcohol abuse as per records, mood disorder, chronic anemia baseline hemoglobin of 11, known aspiration risk. Recent confinement [facility] 3 weeks ago for pacemaker pocket all. Ciprofloxacin Rx completed for Pseudomonas growth. ICD removed during co nfinement. Poor appetite at home, thinks he is losing weight. Chronic cough symptoms productive of white sputum. Increased coughing noted with water/meal intake as per patient account. No chest pain, no S OB. 1 day history of constant sharp lower abdominal pain with nausea and nonbloody diarrhea. No emesis. At the ER, patient received Zosyn for pneumonia. 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 Allergies Allergy/AdvReac Type Severity Reaction Status Date / Time No Known Allergies Allergy Unknown Verified 02/03/19 21:24 Home Medications Home Medications Medication Instructions Recorded Confirmed Type aspirin 81 mg PO QAM 10/27/18 02/03/19 History atorvastatin 10 mg PO QAM 10/27/18 02/03/19 History doxazosin 2 mg PO QAM 10/27/18 02/03/19 History fluticasone propionate 2 spray INTRANASAL BID 10/27/18 02/03/19 History lisinopril 40 mg PO QAM 10/27/18 02/03/19 History metoprolol succinate 25 mg PO QAM 10/27/18 02/03/19 History mirtazapine 45 mg PO HS 10/27/18 02/03/19 History amiodarone 200 mg PO QAM 11/15/18 02/03/19 History Past Med/Surg History Medical History Biventricular cardiac pacemaker in situ (Chronic) NSVT (nonsustained ventricular tachycardia) (Chronic) Moderate protein-calorie malnutrition (Chronic) Nonischemic cardiomyopathy (Chronic) Pt admitted for BiV ICD due to NICM, LBBB and Chronic systolic HF-NYHA Class III. Underwent procedure without any complications; monitored overnight and discharged home. 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 Beliefs That Will Affect Care: None marital status: Current Living Situation: Spouse Current Living Situation Comment: GRANDDAUGHTER current occupational status: retired Other Information That Helps Us Care for You: No Feels Safe at Home: Yes Smoking Status: Former smoker Tobacco Type: cigarettes ; Cigarettes Per Day: 20 ; Do You Dip or Chew Tobacco: No ; Second Hand Exposure: No ; Hx Alcohol Use: No Hx Substance Use: No Review of Systems Review of Systems: As per HPI, all 10 systems reviewed, all other ROS negative Physical Exam Physical Exam: GENERAL: Slightly uncomfortable, cachectic, occasionally coughing, no respiratory distress SKIN: Pallor , warm HEENT: Alopecia, pale palpebral conjunctivae, no ptosis, dry buccal mucosa NECK : Supple, no tenderness CHEST : Decreased breath sounds , no tenderness HEART : Bradycardic, systolic murmur ABDOMEN: Some distention, nontender EXTREMITIES : No LE swelling/tenderness, no other conspicuous deformities noted NEUROLOGIC : Coherent, no facial asymmetry, no other gross focality Results & Data Vital Signs (Past 12 Hours) Vital Signs Temp Pulse Pulse Resp BP BP Pulse Ox 02/04/19 00:22 58 L 18 122/50 L 96 02/03/19 22:01 58 L 18 143/59 H 95 02/03/19 20:52 36.6 C 58 L 20 128/52 L 96 Laboratory Results Laboratory Results WBC 10.84 K/uL (4.8-10.8) H 02/03/19 21:23 RBC 4.01 M/uL (4.7-6.1) L 02/03/19 21:23 Hgb 13.5 g/dL (14.0-18.0) L 02/03/19 21:23 Hct 39.4 % (42-52) L 02/03/19 21:23 MCV 98.3 fL (80-100) 02/03/19 21:23 MCH 33.7 pg (25-34) 02/03/19 21:23 MCHC 34.3 g/dL (32-36) 02/03/19 21:23 RDW Std Deviation 47.4 fL (36.4-46.3) H 02/03/19 21:23 RDW Coeff of Ty 13.2 % (11.5-14.5) 02/03/19 21: Plt Count 224 K/uL (130-400) 02/03/19 21:23 MPV 11.4 fL (7.4-10.4) H 02/03/19 21:23 Immature Gran % (Auto) 0.3 % 02/03/19 21: Neut % (Auto) 73.2 % 02/03/19 21: Lymph % (Auto) 16.8 % 02/03/19 21: [place] % (Auto) 6.1 % 02/03/19 21: Eos % (Auto) 2.7 % 02/03/19 21: Baso % (Auto) 0.9 % 02/03/19 21: Immature Gran # (Auto) 0.03 K/uL (0.00-0.02) H 02/03/19 21: Neut # (Auto) 7.94 K/uL (1.4-6.5) H 02/03/19: Lymph # (Auto) 1.82 K/uL (1.2-3.4) 02/03/19 21: [place] # (Auto) 0.66 K/uL (0.11-0.59) H 02/03/19 21: Eos # (Auto) 0.29 K/uL (0-0.5) 02/03/19: Baso # (Auto) 0.10 K/uL (0-0.2) 02/03/19 21: APTT 25.2 Seconds (21.0-31.0) 02/03/19 21: PTT Ratio 0.9 02/03/19 21: Sodium 134 mmol/L (136-145) L 02/03/19 21: Potassium 3.8 mmol/L (3.5-5.1) 02/03/19 21: Chloride 100 mmol/L (98-107) 02/03/19 21: Carbon Dioxide 27 mmol/L (21-32) 02/03/19 21: Anion Gap 7.0 (3-11) 02/03/19 21: BUN 17 mg/dl (7-18) 02/03/19: Creatinine 1.36 mg/dl (0.6-1.4) 02/03/19: Est Cr Clr Drug Dosing 33.8 ml/min 02/03/19 21: Est GFR ( Amer) 55.4 02/03/19 21: Est GFR (Non-Af Amer) 47.8 02/03/19 21: BUN/Creatinine Ratio 12.6 (10-20) 02/03/19 21:23 Glucose 126 mg/dl (70-99) H 02/03/19 21:23 Lactate 1.1 mmol/L (0.4-2.0) 02/04/19 00:31 Calcium 9.2 mg/dl (8.5-10.1) 02/03/19 21:23 Magnesium 2.2 mg/dl (1.8-2.4) 02/03/19 21:23 Total Bilirubin 0.5 mg/dl (0.2-1) 02/03/19 21:23 AST 28 U/L (15-37) 02/03/19 21:23 ALT 32 U/L (12-78) 02/03/19 21: Alkaline Phosphatase 94 U/L (45-117) 02/03/19 21: Troponin I 0.044 ng/ml (0-0.045) 02/03/19 21: NT-Pro-B Natriuret Pep 3450 pg/ml (0-1800) H 02/03/19 21:23 Total Protein 7.7 gm/dl (6.4-8.2) 02/03/19 21:23 Albumin 3.4 gm/dl (3.4-5.0) 02/03/19 21: Globulin 4.3 gm/dl (2.5-4.0) H 02/03/19 21: Albumin/Globulin Ratio 0.8 (0.9-2) L 02/03/19 21: Lipase 86 U/L (73-393) 02/03/19 21:23 Specimen Hemolysis 02/03/19 21:23 Urine Color Dark Yellow 02/03/19 22:25 Urine Appearance Clear (Clear) 02/03/19 22:25 Urine pH 6.5 (4.5-7.5) 02/03/19 22:25 Ur Specific [place] 1.021 (1.000-1.030) 02/03/19 22:25 Urine Protein Trace (Negative) H 02/03/19 22:25 Urine Glucose (UA) Negative (Negative) 02/03/19 22:25 Urine Ketones Negative (Negative) 02/03/19 22:25 Urine Blood Negative (Negative) 02/03/19 22:25 Urine Nitrite Negative (Negative) 02/03/19 22:25 Urine Bilirubin Negative (Negative) 02/03/19 22:25 Urine Urobilinogen Negative (Negative) 02/03/19 22:25 Ur Leukocyte Esterase Trace (Negative) H 02/03/19 22:25 Urine WBC (Auto) 1-5 /hpf (0-5) 02/03/19 22:25 Urine RBC (Auto) 0-4 /hpf (0-4) 02/03/19 22:25 U Hyaline Cast (Auto) 1-5 /lpf (0-5) 02/03/19 22:25 U Epithel Cells (Auto) >30 /lpf (0-5) H 02/03/19 22:25 Urine Bacteria (Auto) Negative (Negative) 02/03/19 22:25 Stl C. diff Tox B Gene Negative Cdiff Gene (Neg) 02/03/19 22:[address] abdomen pelvis: 1. Examination limited by the lack of intravenous and oral contrast 2. Moderate bilateral pleural effusions bilateral lower lobe airspace opacities likely representing compressive atelectasis 3. Multiple fluid-filled bowel loops, but no transition zones to indicate bowel obstruction. 4. No evidence of acute diverticulitis. Nonvisualization the appendix 5. Fat-containing right inguinal hernia, no current evidence of obstruction 6. No renal, ureteral, or bladder calculi identified. Chest x-ray as per my interpretation: Cardiomegaly, pulmonary congestion, bibasilar densities/pleural effusions. EKG as per my interpretation : Rate 55, sinus bradycardia, LAD, LAFB, LBBB, low voltage
[2019-02-04] MEDS ORDERED: ALBUT/IPRATROP 3MG/0.5MG NEB 3 ML VIAL NEB PRN (02:28)
[2019-02-04] MEDS ORDERED: ALBUMIN 25% 50 ML IV ONE (02:28)
[2019-02-04] MEDS ORDERED: PROMETHAZINE HCL 12.5 MG in SODIUM CHLORIDE 0.9% 50 ML IV PRN (02:28)
[2019-02-04] MEDS ORDERED: TRAMADOL HCL 50 MG TABLET PO PRN (02:28)
[2019-02-04 05:46] LABS: Basophils # (auto) 0.04 K/uL (0-0.2); Basophils % (auto) 0.4 %; Eosinophils # (auto) 0.15 K/uL (0-0.5); Eosinophils % (auto) 1.4 %; Hematocrit (blood only) 34.2 % (42-52); Hemoglobin 11.4 g/dL (14.0-18.0); Immature Granulocytes # (auto) 0.03 K/uL (0.00-0.02); Immature Granulocytes % (auto) 0.3 %; Lymphocytes # (auto) 0.95 K/uL (1.2-3.4); Lymphocytes % (auto) 8.9 %; Mean Corpuscular Hemoglobin 32.8 pg (25-34); Mean Corpuscular Hgb Conc 33.3 g/dL (32-36); Mean Corpuscular Volume 98.3 fL (80-100); Mean Platelet Volume 11.1 fL (7.4-10.4); Monocytes # (auto) 0.85 K/uL (0.11-0.59); Neutrophils # (auto) 8.62 K/uL (1.4-6.5); Platelet Count 168 K/uL (130-400); RDW Coefficient of Variation 13.3 % (11.5-14.5); RDW Standard Deviation 47.7 fL (36.4-46.3); Red Blood Count 3.48 M/uL (4.7-6.1); White Blood Count 10.64 K/uL (4.8-10.8)
[2019-02-04] MEDS ORDERED: AMPICILLIN/SULBACTAM CONSULT ACTIVE PRN (06:05)
[2019-02-04 06:21] LABS: BUN Creatinine Ratio 16.5 (10-20); Calcium 8.2 mg/dl (8.5-10.1); Creatinine Clr Calc Pharmacy 38.2 ml/min; Est GFR (Non-African American) 60.4; Potassium 3.8 mmol/L (3.5-5.1)
--- NOTE | 2019-02-04 06:35 | XRay Report ---
XR chest 2V PA/lateral HISTORY: 84 years-old Male eval for pna acute cough COMPARISON: Chest radiograph 01/11/2019 TECHNIQUE: AP and lateral views of the chest FINDINGS: Status post removal of the previously noted left subclavian pacer/AICD. Cardiomegaly with calcified p laque of the thoracic aortic arch redemonstrated. No pneumothorax. Small to moderate pleural effusion s with bibasilar consolidation. Pulmonary edema is noted with bilateral interstitial coarsening and p ulmonary vascular congestion. Degenerative changes of the shoulders and spine. IMPRESSION: 1. Cardiomegaly with pulmonary edema. 2. Bilateral pleural effusions with bibasilar opacities suggestive of atelectasis or pneumonia. 3. Status post removal of the left subclavian pacer/AICD. The above report was generated using voice recognition software. It may contain grammatical, syntax o r spelling errors. Electronically signed by: Jacky Montenegro M.D. 02/04/2019 6:34 AM
[2019-02-04] MEDS ORDERED: HEPARIN SOD 5,000 UNIT/0.5 ML VIAL SQ SCH (08:00)
[2019-02-04] MEDS: lisinopriL 40 MG TAB PO SCH (08:25)
[2019-02-04] MEDS: METOPROLOL SUCC 25MG EXT REL TAB PO SCH (08:25)
[2019-02-04] MEDS: ATORVASTATIN 10 MG TAB PO SCH (08:25)
[2019-02-04] MEDS: AMIODARONE 200 MG TAB PO SCH (08:26)
[2019-02-04] MEDS: FLUTICASONE PROPIONATE NA SPR 16 GM BTL SCH ×2 (08:26→20:30)
[2019-02-04] MEDS ORDERED: ASPIRIN 81 MG ECTAB PO SCH (09:00)
[2019-02-04] MEDS: AMPICILLIN/SULBACTAM SOD 3,000 MG in 0.9 % SODIUM CHLORIDE 100 ML IV SCH ×3 (09:24→20:28)
--- NOTE | 2019-02-04 13:20 | Gastrointestinal Consultation ---
Date of Consultation February 04, 2019 Assessment & Plan (1) Rectal bleed: 84 year old male recently discharged from [facility] for infection at pacer site, pseudomonas growth --> ICD removed during admission sent on a course of ABX therapy who presnted through the ED for evaluation of abdominal pain and non- bloody diarrhea x [address] in the ED negative for any acute GI pathology. He developed rectal bleeding w/ BM today, BRB. No prior episodes of hematemesis, coffee ground emesis or prior melena. He is awake, alert and oriented, hemodynamically stable w/ stable HGB w/o BUN elevation. DDX discussed: likely lower GIB, rule out c.diff given recent admission, ABX therapy, infectious colitis, diverticular bleed, hemorrhoidal bleed vs ischemic colitis - Trend H&H - Baseline HGB 11 - Monitor and document all GI output - Transfuse PRN per primary service HGB less than 8 - No role for IV PPI - Send stool culture, stool for c.diff - Ok for clear liquids from GI standpoint - He does have history of diverticula, hemorrhoid on colonoscopy from a few years ago. No current plan for repeat endoscopic evaluation Thank you for allowing us to participate in the care of this patient. Please call with any acute changes, questions or concerns. Please see addendum below with additional recommendation from my supervising physician. Present on Admission?: Yes Supervising Physician Co-Signing Physician Notes I have performed a history and physical examination of this patient and reviewed the electronic medical record. Specifically, on physical examination there is no abdominal tenderness. I have discussed the case with JYOTSNA Barros. The above note reflects my findings, conclusions, and recommendations. Alexander Carolina MD History of Present Illness Reason for Consultation: rectal bleeding Requesting Physician: Tyrel Attending Physician: Yari Sarah DO History of Present Illness 84 year old male with history of Nnonischemic cardiomyopathy, BPH, COPD, HTN, infection of ICD/biventricular pacemaker pocket recently admitted to [facility] and transferred to [facility] who presented through the ED yesterday for abdominal pain and diarrhea - GI asked to evaluate for rectal bleeding, onset today. Pt was seen and evaluated, chart reviewed. He notes that he devloped some lower abdominal cramping a few days ago. Feels better w/ passing bowels. Suggests has had liquid, frequent stools since dischage. Stool was dark/brown. No melena. Today, noted to have BRB in the toilet bowl mixed w/ stool. No clots. No rectal pain. Abd pain this AM is improved after BM. No nausea, vomiting. No lightheadedness, dizziness. NO fever, chills, CP, SOB Colonoscopy 2015: recall not recommended, polyps, diverticulosis, hemorrhoids CT: Examination limited by the lack of intravenous and oral contrast Moderate bilateral pleural effusions bilateral lower lobe airspace opacities likely representing compressive atelectasis Multiple fluid-filled bowel loops, but no transition zones to indicate bowel obstruction. No evidence of acute diverticulitis. Nonvisualization the appendix. Fat-containing right inguinal hernia, no current evidence of obstruction No renal, ureteral, or bladder calculi identified. Allergies Allergy/AdvReac Type Severity Reaction Status Date / Time No Known Allergies Allergy Unknown Verified 02/03/19 21:24 Home Medications Home Medications Medication Instructions Recorded Confirmed Type aspirin 81 mg PO QAM 10/27/18 02/03/19 History atorvastatin 10 mg PO QAM 10/27/18 02/03/19 History doxazosin 2 mg PO QAM 10/27/18 02/03/19 History fluticasone propionate 2 spray INTRANASAL BID 10/27/18 02/03/19 History lisinopril 40 mg PO QAM 10/27/18 02/03/19 History metoprolol succinate 25 mg PO QAM 10/27/18 02/03/19 History mirtazapine 45 mg PO HS 10/27/18 02/03/19 History amiodarone 200 mg PO QAM 11/15/18 02/03/19 History Patient History Medical History Biventricular cardiac pacemaker in situ (Chronic) NSVT (nonsustained ventricular tachycardia) (Chronic) Moderate protein-calorie malnutrition (Chronic) Nonischemic cardiomyopathy (Chronic) Pt admitted for BiV ICD due to NICM, LBBB and Chronic systolic HF-NYHA Class III. Underwent procedure without any complications; monitored overnight and discharged home. 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 Beliefs That Will Affect Care: None marital status: Current Living Situation: Spouse Current Living Situation Comment: GRANDDAUGHTER current occupational status: retired Other Information That Helps Us Care for You: No Feels Safe at Home: Yes Smoking Status: Former smoker Tobacco Type: cigarettes ; Cigarettes Per Day: 20 ; Do You Dip or Chew Tobacco: No ; Second Hand Exposure: No ; Hx Alcohol Use: No Hx Substance Use: No Review of Systems Constitutional: no fever and no chills Respiratory: no cough Cardiovascular: no chest pain Gastrointestinal: + abdominal pain and + blood in stools; no early satiety, no heartburn, no nausea, no coffee ground emesis, no hematemesis and no melena Physical Exam Constitutional: well developed and well nourished; no acute distress Neck: trachea midline Respiratory: normal respiratory effort Cardiovascular: Rate/Rhythm: regular rate and regular rhythm Gastrointestinal (Abdomen): normal bowel sounds, soft, nontender, no hepatosplenomegaly Results & Data Vital Signs (Past 12 Hours) Vital Signs Temp Pulse Pulse Resp BP BP Pulse Ox 02/04/19 11:46 95 02/04/19 07:19 36.7 C 54 L 16 134/55 L 92 02/04/19 02:29 36.4 C L 60 18 137/61 94 02/04/19 02:11 57 L 18 125/51 L 96 Laboratory Results 02/04/19 02/04/19 02/04/19 Range/Units 05:15 05:15 00:31 WBC 10.64 (4.8-10.8) K/uL RBC 3.48 L (4.7-6.1) M/uL Hgb 11.4 L (14.0-18.0) g/dL Hct 34.2 L (42-52) % MCV 98.3 (80-100) fL MCH 32.8 (25-34) pg MCHC 33.3 (32-36) g/dL RDW Std Deviation 47.7 H (36.4-46.3) fL RDW Coeff of Ty 13.3 (11.5-14.5) % Plt Count 168 (130-400) K/uL MPV 11.1 H (7.4-10.4) fL Immature Gran % (Auto) 0.3 % Neut % (Auto) 81.0 % Lymph % (Auto) 8.9 % [place] % (Auto) 8.0 % Eos % (Auto) 1.4 % Baso % (Auto) 0.4 % Immature Gran # (Auto) 0.03 H (0.00-0.02) K/uL Neut # (Auto) 8.62 H (1.4-6.5) K/uL Lymph # (Auto) 0.95 L (1.2-3.4) K/uL [place] # (Auto) 0.85 H (0.11-0.59) K/uL Eos # (Auto) 0.15 (0-0.5) K/uL Baso # (Auto) 0.04 (0-0.2) K/uL APTT (21.0-31.0) Seconds PTT Ratio Sodium 135 L (136-145) mmol/L Potassium 3.8 (3.5-5.1) mmol/L Chloride 102 (98-107) mmol/L Carbon Dioxide 30 (21-32) mmol/L Anion Gap 3.0 (3-11) BUN 18 (7-18) mg/dl Creatinine 1.12 (0.6-1.4) mg/dl Est Cr Clr Drug Dosing 38.2 ml/min Est GFR ( Amer) 70.0 Est GFR (Non-Af Amer) 60.4 BUN/Creatinine Ratio 16.5 (10-20) Glucose 78 (70-99) mg/dl Lactate 1.1 (0.4-2.0) mmol/L Calcium 8.2 L (8.5-10.1) mg/dl Magnesium (1.8-2.4) mg/dl Total Bilirubin (0.2-1) mg/dl AST (15-37) U/L ALT (12-78) U/L Alkaline Phosphatase (45-117) U/L Troponin I (0-0.045) ng/ml NT-Pro-B Natriuret Pep (0-1800) pg/ml Total Protein (6.4-8.2) gm/dl Albumin (3.4-5.0) gm/dl Globulin (2.5-4.0) gm/dl Albumin/Globulin Ratio (0.9-2) Lipase (73-393) U/L Specimen Hemolysis Urine Color Urine Appearance (Clear) Urine pH (4.5-7.5) Ur Specific [place] (1.000-1.030) Urine Protein (Negative) Urine Glucose (UA) (Negative) Urine Ketones (Negative) Urine Blood (Negative) Urine Nitrite (Negative) Urine Bilirubin (Negative) Urine Urobilinogen (Negative) Ur Leukocyte Esterase (Negative) Urine WBC (Auto) (0-5) /hpf Urine RBC (Auto) (0-4) /hpf U Hyaline Cast (Auto) (0-5) /lpf U Epithel Cells (Auto) (0-5) /lpf Urine Bacteria (Auto) (Negative) Stl C. diff Tox B Gene (Neg) 02/03/19 02/03/19 02/03/19 Range/Units 22:30 22:25 21:23 WBC (4.8-10.8) K/uL RBC (4.7-6.1) M/uL Hgb (14.0-18.0) g/dL Hct (42-52) % MCV (80-100) fL MCH (25-34) pg MCHC (32-36) g/dL RDW Std Deviation (36.4-46.3) fL RDW Coeff of Ty (11.5-14.5) % Plt Count (130-400) K/uL MPV (7.4-10.4) fL Immature Gran % (Auto) % Neut % (Auto) % Lymph % (Auto) % [place] % (Auto) % Eos % (Auto) % Baso % (Auto) % Immature Gran # (Auto) (0.00-0.02) K/uL Neut # (Auto) (1.4-6.5) K/uL Lymph # (Auto) (1.2-3.4) K/uL [place] # (Auto) (0.11-0.59) K/uL Eos # (Auto) (0-0.5) K/uL Baso # (Auto) (0-0.2) K/uL APTT 25.2 (21.0-31.0) Seconds PTT Ratio 0.9 Sodium (136-145) mmol/L Potassium (3.5-5.1) mmol/L Chloride (98-107) mmol/L Carbon Dioxide (21-32) mmol/L Anion Gap (3-11) BUN (7-18) mg/dl Creatinine (0.6-1.4) mg/dl Est Cr Clr Drug Dosing ml/min Est GFR ( Amer) Est GFR (Non-Af Amer) BUN/Creatinine Ratio (10-20) Glucose (70-99) mg/dl Lactate (0.4-2.0) mmol/L Calcium (8.5-10.1) mg/dl Magnesium (1.8-2.4) mg/dl Total Bilirubin (0.2-1) mg/dl AST (15-37) U/L ALT (12-78) U/L Alkaline Phosphatase (45-117) U/L Troponin I (0-0.045) ng/ml NT-Pro-B Natriuret Pep (0-1800) pg/ml Total Protein (6.4-8.2) gm/dl Albumin (3.4-5.0) gm/dl Globulin (2.5-4.0) gm/dl Albumin/Globulin Ratio (0.9-2) Lipase (73-393) U/L Specimen Hemolysis Urine Color Dark Yellow Urine Appearance Clear (Clear) Urine pH 6.5 (4.5-7.5) Ur Specific [place] 1.021 (1.000-1.030) Urine Protein Trace H (Negative) Urine Glucose (UA) Negative (Negative) Urine Ketones Negative (Negative) Urine Blood Negative (Negative) Urine Nitrite Negative (Negative) Urine Bilirubin Negative (Negative) Urine Urobilinogen Negative (Negative) Ur Leukocyte Esterase Trace H (Negative) Urine WBC (Auto) 1-5 (0-5) /hpf Urine RBC (Auto) 0-4 (0-4) /hpf U Hyaline Cast (Auto) 1-5 (0-5) /lpf U Epithel Cells (Auto) >30 H (0-5) /lpf Urine Bacteria (Auto) Negative (Negative) Stl C. diff Tox B Gene Negative Cdiff Gene (Neg) 02/03/19 02/03/19 Range/Units 21:23 21:23 WBC 10.84 H (4.8-10.8) K/uL RBC 4.01 L (4.7-6.1) M/uL Hgb 13.5 L (14.0-18.0) g/dL Hct 39.4 L (42-52) % MCV 98.3 (80-100) fL MCH 33.7 (25-34) pg MCHC 34.3 (32-36) g/dL RDW Std Deviation 47.4 H (36.4-46.3) fL RDW Coeff of Ty 13.2 (11.5-14.5) % Plt Count 224 (130-400) K/uL MPV 11.4 H (7.4-10.4) fL Immature Gran % (Auto) 0.3 % Neut % (Auto) 73.2 % Lymph % (Auto) 16.8 % [place] % (Auto) 6.1 % Eos % (Auto) 2.7 % Baso % (Auto) 0.9 % Immature Gran # (Auto) 0.03 H (0.00-0.02) K/uL Neut # (Auto) 7.94 H (1.4-6.5) K/uL Lymph # (Auto) 1.82 (1.2-3.4) K/uL [place] # (Auto) 0.66 H (0.11-0.59) K/uL Eos # (Auto) 0.29 (0-0.5) K/uL Baso # (Auto) 0.10 (0-0.2) K/uL APTT (21.0-31.0) Seconds PTT Ratio Sodium 134 L (136-145) mmol/L Potassium 3.8 (3.5-5.1) mmol/L Chloride 100 (98-107) mmol/L Carbon Dioxide 27 (21-32) mmol/L Anion Gap 7.0 (3-11) BUN 17 (7-18) mg/dl Creatinine 1.36 (0.6-1.4) mg/dl Est Cr Clr Drug Dosing 33.8 ml/min Est GFR ( Amer) 55.4 Est GFR (Non-Af Amer) 47.8 BUN/Creatinine Ratio 12.6 (10-20) Glucose 126 H (70-99) mg/dl Lactate (0.4-2.0) mmol/L Calcium 9.2 (8.5-10.1) mg/dl Magnesium 2.2 (1.8-2.4) mg/dl Total Bilirubin 0.5 (0.2-1) mg/dl AST 28 (15-37) U/L ALT 32 (12-78) U/L Alkaline Phosphatase 94 (45-117) U/L Troponin I 0.044 (0-0.045) ng/ml NT-Pro-B Natriuret Pep 3450 H (0-1800) pg/ml Total Protein 7.7 (6.4-8.2) gm/dl Albumin 3.4 (3.4-5.0) gm/dl Globulin 4.3 H (2.5-4.0) gm/dl Albumin/Globulin Ratio 0.8 L (0.9-2) Lipase 86 (73-393) U/L Specimen Hemolysis Urine Color Urine Appearance (Clear) Urine pH (4.5-7.5) Ur Specific [place] (1.000-1.030) Urine Protein (Negative) Urine Glucose (UA) (Negative) Urine Ketones (Negative) Urine Blood (Negative) Urine Nitrite (Negative) Urine Bilirubin (Negative) Urine Urobilinogen (Negative) Ur Leukocyte Esterase (Negative) Urine WBC (Auto) (0-5) /hpf Urine RBC (Auto) (0-4) /hpf U Hyaline Cast (Auto) (0-5) /lpf U Epithel Cells (Auto) (0-5) /lpf Urine Bacteria (Auto) (Negative) Stl C. diff Tox B Gene (Neg)
--- NOTE | 2019-02-04 18:53 | Hospitalist Progress Note ---
Date of Service February 04, 2019 Assessment & Plan (1) HCAP (healthcare-associated pneumonia): Reports of cough that is unchanged with new bilateral cxr findings suggestive of pneumonia. Denies fevers, chills or other infectious symptoms. Cont Unasyn for now. (2) Lower GI bleed: New episode of hematochezia today. Appreciate GI help in workup. Hemodynamically stable. Hold heparin and aspirin. (3) Chronic systolic heart failure: compensated. Recent ICD taken out for pocket infection. No plans to put this back in place. (4) Severe malnutrition: Nutrition consult, appreciate recs. Speech recommends a full liquid diet for now with ultimate transition to bite sized food. (5) DVT prophylaxis: Heparin held/SCDs Full Dispo-uncertain at this time. Pending GI workup. Yari Sarah DO [facility] Hospitalist Subjective 84-year-old man presented to the ER with sharp constant pain in his lower abdomen associated with diarrhea, nausea and intermittent sweating. He denied any chest pain or shortness of breath. The intensity of the pain drove him into the ER even though it had been only one day. He was recently admitted to [facility] where he had an infected pacemaker removed approximately a month ago. He had taken antibiotics for this issue. He reports a chronic cough that has not changed and denies any fevers chills or shortness of breath. His chest x- ray looked more fluffy at the bases compared to prior chest x-rays and he was placed on Unasyn. He does not report feeling poorly and is not sure if this helped him or not. This morning he had a aleksandar bloody bowel movement with bright red blood. GI was consulted. He denies abdominal pain at this time. Review of Systems Review of Systems: All systems reviewed & are unremarkable except as noted in HPI & below Physical Exam Physical Exam: CONSTITUTIONAL: WNWD, vitals as above, generally well- appearing EYES: normal conjunctivae, no scleral icterus ENT: MMM RESPIRATORY: clear to auscultation bilaterally, no crackles, rales or wheezes, normal respiratory effort CARDIOVASCULAR: regular rate and rhythm, S1 and 2 heard without murmurs, gallops or rubs, no JVD, no peripheral edema GASTROINTESTINAL: normal bowel sounds, soft, nontender, nondistended MUSCULOSKELETAL: strength 5/5 throughout, head is normocephalic and atraumatic SKIN: warm and dry NEUROLOGIC: Hard of hearing. No facial palsy, no dysarthria. CN 2-12 grossly intact, no sensory deficit, normal cognition, normal speech, no gross focal deficits. PSYCHIATRIC: alert cooperative and oriented to person, place and time. Results & Data Vital Signs (Past 12 Hours) Vital Signs Temp Pulse Resp BP Pulse Ox 02/04/19 14:59 36.7 C 54 L 16 129/63 94 02/04/19 11:46 95 02/04/19 07:19 36.7 C 54 L 16 134/55 L 92 Laboratory Results Short CBC 02/03/19 02/04/19 Range/Units 21:23 05:15 WBC 10.84 H 10.64 (4.8-10.8) K/uL Hgb 13.5 L 11.4 L (14.0-18.0) g/dL Hct 39.4 L 34.2 L (42-52) % Plt Count 224 168 (130-400) K/uL BMP 02/03/19 02/04/19 21:23 05:15 Sodium 134 L 135 L Potassium 3.8 3.8 Chloride 100 102 Carbon Dioxide 27 30 BUN 17 18 Creatinine 1.36 1.12 Glucose 126 H 78 Calcium 9.2 8.2 L Cardiac Enzymes 02/03/19 Range/Units 21:23 Troponin I 0.044 (0-0.045) ng/ml Liver Function 02/03/19 Range/Units 21:23 Total Bilirubin 0.5 (0.2-1) mg/dl AST 28 (15-37) U/L ALT 32 (12-78) U/L Alkaline Phosphatase 94 (45-117) U/L Albumin 3.4 (3.4-5.0) gm/dl Urine 02/03/19 Range/Units 22:25 Urine Color Dark Yellow Urine Appearance Clear (Clear) Urine pH 6.5 (4.5-7.5) Ur Specific [place] 1.021 (1.000-1.030) Urine Protein Trace H (Negative) Urine Glucose (UA) Negative (Negative) Medications Administered Current Inpatient Medications Albuterol (Duoneb) 3 ml NEB Q2H PRN PRN Reason: Wheezing Stop: 03/06/19 02:27 Amiodarone HCl (Cordarone) 200 mg PO QAM [facility] Stop: 03/06/19 08:59 Last Admin: 02/04/19 08:26 Dose: 200 mg Documented by: Aspirin (Ecotrin Ectab) [facility] Stop: 03/06/19 08:59 Last Admin: 02/04/19 08:26 Dose: 81 mg Documented by: Atorvastatin Calcium (Lipitor) [facility] Stop: 03/06/19 08:59 Last Admin: 02/04/19 08:25 Dose: 10 mg Documented by: Doxazosin Mesylate (Cardura) 2 mg PO [facility] Stop: 03/06/19 20:59 Fluticasone Propionate (Flonase) 2 sprays NA BID [facility] Stop: 03/06/19 08:59 Last Admin: 02/04/19 08:26 Dose: 2 sprays Documented by: Promethazine HCl 12.5 mg/ (Sodium Chloride) 50.5 mls @ 202 mls/hr IV Q6H PRN PRN Reason: Nausea And Vomiting Stop: 03/06/19 02:27 Ampicillin Sodium/Sulbactam Sodium 3,000 mg/ Sodium Chloride 108 mls @ 216 mls/hr IV Q6H [facility]; Protocol Stop: 02/11/19 07:59 Last Infusion: 02/04/19 15:20 Dose: Infused Documented by: Lisinopril (Zestril) [address] [facility] Stop: 03/06/19 08:59 Last Admin: 02/04/19 08:25 Dose: 40 mg Documented by: Metoprolol Succinate (Toprol Xl) [address] [facility] Stop: 03/06/19 08:59 Last Admin: 02/04/19 08:25 Dose: 25 mg Documented by: Mirtazapine (Remeron Solutab) 45 mg PO [facility] Stop: 03/06/19 20:59 Miscellaneous Information (Ampicillin/Sulbactam Consult) 1 ea N/A UD PRN PRN Reason: Consult Stop: 03/06/19 06:04 Tramadol HCl (Ultram) 25 mg PO Q4H PRN PRN Reason: Pain Stop: 03/06/19 02:27
[2019-02-04 20:20] LABS: Hematocrit (blood only) 32.2 % (42-52); Hemoglobin 10.6 g/dL (14.0-18.0)
[2019-02-04] MEDS: DOXAZosin MESYLATE TAB 2 MG TAB PO SCH (20:29)
[2019-02-04] MEDS: MIRTAZAPINE SOLTAB 15 MG PO SCH (20:30)
[2019-02-05] MEDS: AMPICILLIN/SULBACTAM SOD 3,000 MG in 0.9 % SODIUM CHLORIDE 100 ML IV SCH ×3 (02:37→13:56)
[2019-02-05 05:43] LABS: Hematocrit (blood only) 31.3 % (42-52); Hemoglobin 10.8 g/dL (14.0-18.0); Mean Corpuscular Hemoglobin 34.1 pg (25-34); Mean Corpuscular Hgb Conc 34.5 g/dL (32-36); Mean Corpuscular Volume 98.7 fL (80-100); Mean Platelet Volume 10.9 fL (7.4-10.4); Platelet Count 150 K/uL (130-400); RDW Coefficient of Variation 13.5 % (11.5-14.5); RDW Standard Deviation 48.6 fL (36.4-46.3); Red Blood Count 3.17 M/uL (4.7-6.1); White Blood Count 9.75 K/uL (4.8-10.8)
[2019-02-05 06:12] LABS: BUN Creatinine Ratio 13.8 (10-20); Calcium 8.1 mg/dl (8.5-10.1); Creatinine Clr Calc Pharmacy 40.4 ml/min; Est GFR (African American) 74.9; Est GFR (Non-African American) 64.6; Potassium 3.9 mmol/L (3.5-5.1)
[2019-02-05] MEDS: AMIODARONE 200 MG TAB PO SCH (08:08)
[2019-02-05] MEDS: lisinopriL 40 MG TAB PO SCH (08:08)
[2019-02-05] MEDS: METOPROLOL SUCC 25MG EXT REL TAB PO SCH (08:08)
[2019-02-05] MEDS: ATORVASTATIN 10 MG TAB PO SCH (08:08)
[2019-02-05] MEDS: FLUTICASONE PROPIONATE NA SPR 16 GM BTL SCH ×2 (08:09→20:38)
--- NOTE | 2019-02-05 09:35 | Gastroenterology Progress Note ---
Date of Service February 05, 2019 Assessment & Plan (1) Rectal bleed: 84 year old male recently discharged from [facility] for infection at pacer site, pseudomonas growth --> ICD removed during admission sent on a course of ABX therapy who presnted through the ED for evaluation of abdominal pain and non- bloody diarrhea x [address] in the ED negative for any acute GI pathology. He developed rectal bleeding w/ BM today, BRB. No prior episodes of hematemesis, coffee ground emesis or prior melena. He is awake, alert and oriented, hemodynamically stable w/ stable HGB w/o BUN elevation. DDX discussed: likely lower GIB, rule out infectious colitis, diverticular bleed, hemorrhoidal bleed vs ischemic colitis - C.diff negative - Follow culture - Trend H&H - Baseline HGB 11 - Monitor and document all GI output - Transfuse PRN per primary service HGB less than 8 - No role for IV PPI - Ok for clear liquids from GI standpoint - He does have history of diverticula, hemorrhoid on colonoscopy from a few years ago. No current plan for repeat endoscopic evaluation Thank you for allowing us to participate in the care of this patient. Please call with any acute changes, questions or concerns. Please see addendum below with additional recommendation from my supervising physician. Supervising Physician Co-Signing Physician Notes I have performed a history and physical examination of this patient and reviewed the electronic medical record. Specifically, on history patient had a brown stool earlier today, overall feels much better. I have discussed the case with JYOTSNA Barros. The above note reflects my findings, conclusions, and recommendations. Alexander Carolina MD Subjective Pt was seen and evaluated, chart reviewed No acute events noted overnight Presented w/ abd cramping, diarrhea Developed rectal bleeding yesterday Has had three episodes since onset BRB, no clots, no melena ABD Pain resolved HGB stable. No BUN elevation c.diff negative culture pending Review of Systems Constitutional: no fever and no chills Respiratory: no cough and no dyspnea Cardiovascular: no chest pain Gastrointestinal: + abdominal pain, + diarrhea/loose stools and + blood in stools Physical Exam Constitutional: + ill appearing (chronically ill); no acute distress Respiratory: normal respiratory effort, lungs clear to auscultation Cardiovascular: Rate/Rhythm: regular rate and regular rhythm Gastrointestinal (Abdomen): normal bowel sounds, soft, nontender, no hepatosplenomegaly Results & Data Vital Signs (Past 12 Hours) Vital Signs Temp Pulse Resp BP Pulse Ox 02/05/19 07:28 36.7 C 59 L 20 121/46 L 92 02/04/19 23:03 36.7 C 60 18 134/62 94
--- NOTE | 2019-02-05 17:49 | Hospitalist Progress Note ---
Date of Service February 05, 2019 Assessment & Plan (1) HCAP (healthcare-associated pneumonia): Patient is feeling better and blood cultures are negative. We will plan to transition to Augmentin. (2) Lower GI bleed: Recurrent hematochezia this morning but H&H is staying stable. Hemodynamically he is stable. Continue holding aspirin. Per GI recommendations etiologies for hematochezia include but are not limited to infectious colitis, diverticular bleed, hemorrhoidal bleed versus ischemic colitis. His C. difficile was checked and negative. Stool cultures are negative. There is no current plan for repeat endoscopic evaluation. Continue to monitor. (3) Chronic systolic heart failure: compensated. Recent ICD taken out for pocket infection. No plans to put this back in place. Continue medical therapy with lisinopril, amiodarone, atorvastatin, Toprol-XL. (4) Severe malnutrition: Nutrition consult, appreciate recs. Speech recommends a full liquid diet for now with ultimate transition to bite sized food. (5) DVT prophylaxis: Heparin held/SCDs Full Dispo-uncertain at this time. Pending clinical improvement. Continue to monitor. Per physical therapy evaluation he is independent and further PT is not indicated at this time. Plan to return home when medically stable. Yari Sarah DO [facility] Hospitalist Subjective Patient reports feeling better today. Had a bright red bloody stool this morning but this was followed by a normal brown stool this afternoon. He denies any abdominal pain and is handling full liquids without issue. He denies any fevers, chills. He reports his cough is improved after starting on the Unasyn. He is overall feeling well. Review of Systems Review of Systems: All systems reviewed & are unremarkable except as noted in HPI & below Physical Exam Physical Exam: CONSTITUTIONAL: WNWD, vitals as above, generally well- appearing EYES: normal conjunctivae, no scleral icterus ENT: MMM RESPIRATORY: clear to auscultation bilaterally, no crackles, rales or wheezes, normal respiratory effort CARDIOVASCULAR: regular rate and rhythm, S1 and 2 heard without murmurs, gallops or rubs, no JVD, no peripheral edema GASTROINTESTINAL: normal bowel sounds, soft, nontender, nondistended MUSCULOSKELETAL: strength 5/5 throughout, head is normocephalic and atraumatic SKIN: warm and dry NEUROLOGIC: Hard of hearing. No facial palsy, no dysarthria. CN 2-12 grossly intact, no sensory deficit, normal cognition, normal speech, no gross focal deficits. PSYCHIATRIC: alert cooperative and oriented to person, place and time. Results & Data Vital Signs (Past 12 Hours) Vital Signs Temp Pulse Resp BP Pulse Ox 02/05/19 14:48 36.3 C L 63 20 150/66 H 95 02/05/19 07:28 36.7 C 59 L 20 121/46 L 92 Laboratory Results Short CBC 02/04/19 02/05/19 Range/Units 19:52 05:23 WBC 9.75 (4.8-10.8) K/uL Hgb 10.6 L 10.8 L (14.0-18.0) g/dL Hct 32.2 L 31.3 L (42-52) % Plt Count 150 (130-400) K/uL BMP 02/05/19 05:23 Sodium 138 Potassium 3.9 Chloride 104 Carbon Dioxide 30 BUN 15 Creatinine 1.06 Glucose 81 Calcium 8.1 L Medications Administered Current Inpatient Medications Albuterol (Duoneb) 3 ml NEB Q2H PRN PRN Reason: Wheezing Stop: 03/06/19 02:27 Amiodarone HCl (Cordarone) 200 mg PO [facility] Stop: 03/06/19 08:59 Last Admin: 02/05/19 08:08 Dose: 200 mg Documented by: Aspir[facility] (E[facility]rin Ectab) [facility] Stop: 03/06/19 08:59 Last Admin: 02/04/19 08:26 Dose: 81 mg Documented by: Atorvastatin Calcium (Lipitor) [facility] Stop: 03/06/19 08:59 Last Admin: 02/05/19 08:08 Dose: 10 mg Documented by: Doxazosin Mesylate (Cardura) 2 mg PO [facility] Stop: 03/06/19 20:59 Last Admin: 02/04/19 20:29 Dose: 2 mg Documented by: Fluticasone Propionate (Flonase) 2 sprays NA BID [facility] Stop: 03/06/19 08:59 Last Admin: 02/05/19 08:09 Dose: 2 sprays Documented by: Promethazine HCl 12.5 mg/ (Sodium Chloride) 50.5 mls @ 202 mls/hr IV Q6H PRN PRN Reason: Nausea And Vomiting Stop: 03/06/19 02:27 Ampicillin Sodium/Sulbactam Sodium 3,000 mg/ Sodium Chloride 108 mls @ 216 mls/hr IV Q6H [facility]; Protocol Stop: 02/11/19 07:59 Last Infusion: 02/05/19 14:35 Dose: Infused Documented by: Lisinopril (Zestril) [facility] Stop: 03/06/19 08:59 Last Admin: 02/05/19 08:08 Dose: 40 mg Documented by: Metoprolol Succinate (Toprol Xl) 25 mg PO QAM [facility] Stop: 03/06/19 08:59 Last Admin: 02/05/19 08:08 Dose: 25 mg Documented by: Mirtazapine (Remeron Solutab) 45 mg PO HS [facility] Stop: 03/06/19 20:59 Last Admin: 02/04/19 20:30 Dose: 45 mg Documented by: Miscellaneous Information (Ampicillin/Sulbactam Consult) 1 ea N/A UD PRN PRN Reason: Consult Stop: 03/06/19 06:04 Tramadol HCl (Ultram) 25 mg PO Q4H PRN PRN Reason: Pain Stop: 03/06/19 02:27
[2019-02-05] MEDS: MIRTAZAPINE SOLTAB 15 MG PO SCH (20:38)
[2019-02-05] MEDS: DOXAZosin MESYLATE TAB 2 MG TAB PO SCH (20:38)
[2019-02-06 05:58] LABS: Hematocrit (blood only) 31.3 % (42-52); Hemoglobin 10.3 g/dL (14.0-18.0); Mean Corpuscular Hemoglobin 32.7 pg (25-34); Mean Corpuscular Hgb Conc 32.9 g/dL (32-36); Mean Corpuscular Volume 99.4 fL (80-100); Mean Platelet Volume 11.4 fL (7.4-10.4); Platelet Count 144 K/uL (130-400); RDW Coefficient of Variation 13.4 % (11.5-14.5); RDW Standard Deviation 48.3 fL (36.4-46.3); Red Blood Count 3.15 M/uL (4.7-6.1); White Blood Count 6.15 K/uL (4.8-10.8)
[2019-02-06 06:33] LABS: BUN Creatinine Ratio 12.3 (10-20); Calcium 8.4 mg/dl (8.5-10.1); Creatinine Clr Calc Pharmacy 42.4 ml/min; Est GFR (African American) 79.4; Est GFR (Non-African American) 68.5; Potassium 3.6 mmol/L (3.5-5.1)
[2019-02-06] MEDS: AMOXICILLIN/CLAVULANATE 875 MG TAB PO SCH ×2 (08:15→18:02)
[2019-02-06] MEDS: AMIODARONE 200 MG TAB PO SCH (08:16)
[2019-02-06] MEDS: METOPROLOL SUCC 25MG EXT REL TAB PO SCH (08:17)
[2019-02-06] MEDS: lisinopriL 40 MG TAB PO SCH (08:17)
[2019-02-06] MEDS: ATORVASTATIN 10 MG TAB PO SCH (08:17)
[2019-02-06] MEDS: FLUTICASONE PROPIONATE NA SPR 16 GM BTL SCH ×2 (08:17→20:50)
--- NOTE | 2019-02-06 08:17 | Gastroenterology Progress Note ---
Date of Service February 06, 2019 Assessment & Plan (1) Rectal bleed: 84 year old male recently discharged from [facility] for infection at pacer site, pseudomonas growth --> ICD removed during admission sent on a course of ABX therapy who presnted through the ED for evaluation of abdominal pain and non- bloody diarrhea x [address] in the ED negative for any acute GI pathology. He developed rectal bleeding w/ BM today, BRB. No prior episodes of hematemesis, coffee ground emesis or prior melena. He is awake, alert and oriented, hemodynamically stable w/ stable HGB w/o BUN elevation. DDX discussed: lower GIB, rule out infectious colitis, diverticular bleed, hemorrhoidal bleed vs ischemic colitis. He is clinically improving, abd pain resolving w/ less frequency/urgency of bowels and resolution of his rectal bleeding, he likely had a self limiting diverticular bleed or ischemic colitis - C.diff negative - Culture negative but not finalized - Trend H&H - Baseline HGB 11 - Monitor and document all GI output - Transfuse PRN per primary service HGB less than 8 - No role for IV PPI - Ok for clear liquids from GI standpoint and diet advancement - He does have history of diverticula, hemorrhoid on colonoscopy from a few years ago. No current plan for repeat endoscopic evaluation Will sign off. Thank you for allowing us to participate in the care of this patient. Please call with any acute changes, questions or concerns. Please see addendum below with additional recommendation from my supervising physician. Supervising Physician Co-Signing Physician Notes I have performed a history and physical examination of this patient and reviewed the electronic medical record. Specifically, on history there is no further rectal bleeding and on physical examination there is no abdominal tenderness. I have discussed the case with JYOTSNA Barros. The above note reflects my findings, conclusions, and recommendations. Alexander Carolina MD Subjective Pt was seen and evaluated, chart reviewed No acute events noted overnight No longer has any abd pain No nausea/vomiting Moved bowels twice yesterday Once this AM Stool was brown/green Last episode of rectal bleeding was 02/05/19 AM No fever, chills, CP, SOB Review of Systems Constitutional: no fever and no chills Respiratory: no cough and no dyspnea Cardiovascular: no chest pain and no radiating jaw, neck or arm pain Gastrointestinal: + diarrhea/loose stools; no abdominal pain, no blood in stools and no melena Physical Exam Constitutional: well developed; no acute distress Respiratory: normal respiratory effort Cardiovascular: Rate/Rhythm: regular rate and regular rhythm Gastrointestinal (Abdomen): normal bowel sounds, soft, nontender, no hepatosplenomegaly Results & Data Vital Signs (Past 12 Hours) Vital Signs Temp Pulse Resp BP Pulse Ox 02/06/19 07:13 36.6 C 58 L 18 164/67 H 93 02/05/19 23:06 36.3 C L 65 16 155/74 H 92 02/05/19 20:36 63 137/62
--- NOTE | 2019-02-06 10:47 | XRay Report ---
XR chest 1V portable CLINICAL HISTORY: crackles at bases, EF 20% COMPARISON STUDY: Chest CT October 27, 2018 and chest radiograph February 03, 2019. FINDINGS: There is no pneumothorax. Moderate bilateral pleural effusions are noted. Mild pulmonary ed audelia has improved since exam of February 03, 2019. There are persistent bibasilar opacities. Cardiomedi astinal silhouette is stable. IMPRESSION: 1. Moderate bilateral pleural effusions with bibasilar opacities that favor atelectasis although cons olidation could appear similar. 2. Mild pulmonary edema, improved since exam of February 03, 2019. Electronically signed by: Jan Dunham M.D. 02/06/2019 10:45 AM
--- NOTE | 2019-02-06 10:59 | Hospitalist Progress Note ---
Date of Service February 06, 2019 Assessment & Plan (1) HCAP (healthcare-associated pneumonia): Patient is feeling better on Augmentin. Cultures revealed evidence of an anaerobic gram-negative bacilli in 1 bottle. He is clinically stable and doing well. Infectious disease was consulted and we are watching him. Repeat cultures were ordered. (2) Lower GI bleed: Recurrent hematochezia this morning but H&H is staying stable. Anemia is noted. Hemodynamically he is stable. Continue holding aspirin. Per GI recommendations etiologies for hematochezia include but are not limited to infectious colitis, diverticular bleed, hemorrhoidal bleed versus ischemic colitis. His C. difficile was checked and negative. Stool cultures are negative. There is no current plan for repeat endoscopic evaluation. Continue to monitor. (3) Chronic systolic heart failure: compensated. Recent ICD taken out for pocket infection. No plans to put this back in place. Continue medical therapy with lisinopril, amiodarone, atorvastatin, Toprol-XL. (4) Pleural effusion: Crackles at lung bases today. 1 dose of Lasix given to this Lasix mason patient (5) Acute blood loss anemia: Secondary to hematochezia in addition to recent hospitalization with ICD removal (6) Severe malnutrition: Nutrition consult, appreciate recs for adding supplementation with boost to diet. (7) DVT prophylaxis: Heparin held/SCDs Full Dispo-Plan to return home when medically stable. Yari Sarah, DO [facility] Hospitalist Subjective Doing well, denies symptoms at this time. Reports no shortness of breath despite crackles on lungs at bases. He has been ambulating at baseline time p.o. He did have several episodes of brown stool today. Review of Systems Review of Systems: All systems reviewed & are unremarkable except as noted in HPI & below Physical Exam Physical Exam: CONSTITUTIONAL: WNWD, vitals as above, generally well- appearing EYES: normal conjunctivae, no scleral icterus ENT: MMM RESPIRATORY: clear to auscultation bilaterally, no crackles, rales or wheezes, normal respiratory effort CARDIOVASCULAR: regular rate and rhythm, S1 and 2 heard without murmurs, gallops or rubs, no JVD, no peripheral edema GASTROINTESTINAL: normal bowel sounds, soft, nontender, nondistended MUSCULOSKELETAL: strength 5/5 throughout, head is normocephalic and atraumatic SKIN: warm and dry NEUROLOGIC: Hard of hearing. No facial palsy, no dysarthria. CN 2-12 grossly intact, no sensory deficit, normal cognition, normal speech, no gross focal deficits. PSYCHIATRIC: alert cooperative and oriented to person, place and time. Results & Data Vital Signs (Past 12 Hours) Vital Signs Temp Pulse Resp BP Pulse Ox 02/06/19 07:13 36.6 C 58 L 18 164/67 H 93 02/05/19 23:06 36.3 C L 65 16 155/74 H 92 Laboratory Results Short CBC 02/06/19 Range/Units 05:29 WBC 6.15 (4.8-10.8) K/uL Hgb 10.3 L (14.0-18.0) g/dL Hct 31.3 L (42-52) % Plt Count 144 (130-400) K/uL BMP 02/06/19 05:29 Sodium 137 Potassium 3.6 Chloride 103 Carbon Dioxide 30 BUN 12 Creatinine 1.01 Glucose 88 Calcium 8.4 L Medications Administered Current Inpatient Medications Albuterol (Duoneb) 3 ml NEB Q2H PRN PRN Reason: Wheezing Stop: 03/06/19 02:27 [facility]) [facility] Stop: 03/06/19 08:59 Last Admin: 02/06/19 08:16 Dose: 200 mg Documented by: Amoxicillin/Clavulanate Potassium (Augmentin 875mg) 1 tab PO [facility]M [facility] Stop: 02/13/19 07:59 Last Admin: 02/06/19 08:15 Dose: 1 tab Documented by: Aspirin (Ecotrin Ectab) [facility] Stop: 03/06/19 08:59 Last Admin: 02/04/19 08:26 Dose: 81 mg Documented by: Atorvastatin Calcium (Lipitor) [facility] Stop: 03/06/19 08:59 Last Admin: 02/06/19 08:17 Dose: 10 mg Documented by: Doxazosin Mesylate (Cardura) 2 mg PO [facility] Stop: 03/06/19 20:59 Last Admin: 02/05/19 20:38 Dose: 2 mg Documented by: Fluticasone Propionate (Flonase) 2 sprays NA BID [facility] Stop: 03/06/19 08:59 Last Admin: 02/06/19 08:17 Dose: 2 sprays Documented by: Promethazine HCl 12.5 mg/ (Sodium Chloride) 50.5 mls @ 202 mls/hr IV Q6H PRN PRN Reason: Nausea And Vomiting Stop: 03/06/19 02:27 Furosemide 20 mg/ Syringe 2 mls @ 4 mls/min IV 1100 ONE Stop: 02/06/19 11:01 Last Admin: 02/06/19 10:56 Dose: 4 mls/min Documented by: Lisinopril (Zestril) [facility] Stop: 03/06/19 08:59 Last Admin: 02/06/19 08:17 Dose: 40 mg Documented by: Metoprolol Succinate (Toprol Xl) [facility] Stop: 03/06/19 08:59 Last Admin: 02/06/19 08:17 Dose: 25 mg Documented by: Mirtazapine (Remeron Solutab) 45 mg PO [facility] Stop: 03/06/19 20:59 Last Admin: 02/05/19 20:38 Dose: 45 mg Documented by: Tramadol HCl (Ultram) 25 mg PO Q4H PRN PRN Reason: Pain Stop: 03/06/19 02:27
[2019-02-06] MEDS ORDERED: FUROSEMIDE 20 MG in SYRINGE 0 ML IV ONE (11:00)
--- NOTE | 2019-02-06 14:09 | Infectious Disease Consult ---
Date of Consultation February 06, 2019 Assessment & Plan (1) Gram negative sepsis: blood culture with probable gram negative anarobe, he is clinically stable on abx, will continue this and follow final results. ? GI translocation with diarrha. will repeat cultures. History of Present Illness Attending Physician: Yari Sarah DO pt admitted with abd pain and diarrhea. history obtained from chart. was recently treated for infected at ICD at another hospital, per chart cultures grew pseudomonas and he was treated with cipro, tolerated well. Also on amiodarone. now presents with abd pain, stool culture negative, ct abd negative, cxr with b/l effusions and atelectasis, concern for aspiration pna, he was given zosyn in ER and changed to augmentin, he is eating without difficulty during my exam. afebriel. wbc 6, creat 1. UA negative 1-5 wbc, no gu symptoms. he denies cp, sob, cough, cosby. ambulating in room to bathroom without difficulty. no n/v/d. no gu symptoms. 02/03 blood culture negative, 02/04 culture + gnr 04/24 set. ID consulted for + blood cultures. Allergies Allergy/AdvReac Type Severity Reaction Status Date / Time No Known Allergies Allergy Unknown Verified 02/03/19 21:24 Home Medications Home Medications Medication Instructions Recorded Confirmed Type aspirin 81 mg PO QAM 10/27/18 02/03/19 History atorvastatin 10 mg PO QAM 10/27/18 02/03/19 History doxazosin 2 mg PO QAM 10/27/18 02/03/19 History fluticasone propionate 2 spray INTRANASAL BID 10/27/18 02/03/19 History lisinopril 40 mg PO QAM 10/27/18 02/03/19 History metoprolol succinate 25 mg PO QAM 10/27/18 02/03/19 History mirtazapine 45 mg PO HS 10/27/18 02/03/19 History amiodarone 200 mg PO QAM 11/15/18 02/03/19 History Patient History Medical History Biventricular cardiac pacemaker in situ (Chronic) NSVT (nonsustained ventricular tachycardia) (Chronic) Moderate protein-calorie malnutrition (Chronic) Nonischemic cardiomyopathy (Chronic) Pt admitted for BiV ICD due to NICM, LBBB and Chronic systolic HF-NYHA Class III. Underwent procedure without any complications; monitored overnight and discharged home. 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: No Beliefs That Will Affect Care: None marital status: Current Living Situation: Spouse Current Living Situation Comment: GRANDDAUGHTER current occupational status: retired Other Information That Helps Us Care for You: No Feels Safe at Home: Yes Smoking Status: Former smoker Tobacco Type: cigarettes ; Cigarettes Per Day: 20 ; Do You Dip or Chew Tobacco: No ; Second Hand Exposure: No ; Hx Alcohol Use: No Hx Substance Use: No Review of Systems Review of Systems: All systems reviewed & are unremarkable except as noted in HPI & below Physical Exam Constitutional: WD/WN, vitals as above Eyes: PERRL, conjunctivae normal, anicteric sclerae ENMT: external ear and nose normal, oropharynx normal Neck: normal visual inspection Respiratory: normal respiratory effort, lungs clear to auscultation Auscultation: + diminished lung sounds Cardiovascular: RRR, no murmur, no edema Gastrointestinal (Abdomen): normal bowel sounds, soft, nontender, no hepatosplenomegaly Musculoskeletal: no cyanosis or clubbing, extremities motor strength 5/5 Skin: no rashes, warm and dry Psychiatric: A+Ox3, euthymic affect Results & Data Vital Signs (Past 12 Hours) Vital Signs Temp Pulse Resp BP Pulse Ox 02/06/19 07:13 36.6 C 58 L 18 164/67 H 93 Laboratory Results Microbiology 02/04/19 00:06 Blood Aerobic Blood Culture - Preliminary No growth in Aerobic bottle after 48 hours. 02/04/19 00:06 Blood Anaerobic Blood Culture - Preliminary Probable gisela gram neg bacilli 02/03/19 22:30 Stool Escherichia coli Shiga Toxins Test - Final 02/03/19 22:30 Stool Stool Culture - Final No Salmonella isolated, No Shigella isolated, No Campylobacter jejuni isolated. 02/03/19 23:55 Blood Aerobic Blood Culture - Preliminary No growth in Aerobic bottle after 48 hours. 02/03/19 23:55 Blood Anaerobic Blood Culture - Preliminary No growth in Anaerobic bottle after 48 hours. 02/04/19 17:30 Stool WBC Smear - Final 02/04/19 17:30 Stool Escherichia coli Shiga Toxins Test - Preliminary 02/04/19 17:30 Stool Stool Culture - Preliminary No Salmonella isolated to date, No Shigella isolated to date, No Campylobacter jejuni isolated to date. PG Care Time/CCT Total # of Minutes Spent Total Time Spent with Patient: Total time spent is greater than 50% in coordination of care (as documented) at patient's floor/unit and/or counseling patient:
[2019-02-06] MEDS ORDERED: ONDANSETRON INJ 2 MG/ML 2 ML VIAL IV PRN (14:37)
[2019-02-06] MEDS: DOXAZosin MESYLATE TAB 2 MG TAB PO SCH (20:47)
[2019-02-06] MEDS: MIRTAZAPINE SOLTAB 15 MG PO SCH (20:51)
[2019-02-07 05:54] LABS: Hematocrit (blood only) 31.8 % (42-52); Hemoglobin 10.7 g/dL (14.0-18.0); Mean Corpuscular Hemoglobin 33.1 pg (25-34); Mean Corpuscular Hgb Conc 33.6 g/dL (32-36); Mean Corpuscular Volume 98.5 fL (80-100); Mean Platelet Volume 11.1 fL (7.4-10.4); Platelet Count 156 K/uL (130-400); RDW Coefficient of Variation 13.1 % (11.5-14.5); RDW Standard Deviation 47.6 fL (36.4-46.3); Red Blood Count 3.23 M/uL (4.7-6.1); White Blood Count 7.65 K/uL (4.8-10.8)
[2019-02-07 06:29] LABS: BUN Creatinine Ratio 11.9 (10-20); Calcium 8.2 mg/dl (8.5-10.1); Creatinine Clr Calc Pharmacy 36.7 ml/min; Est GFR (African American) 67.1; Est GFR (Non-African American) 57.9; Potassium 3.4 mmol/L (3.5-5.1)
[2019-02-07] MEDS: AMIODARONE 200 MG TAB PO SCH (08:26)
[2019-02-07] MEDS: AMOXICILLIN/CLAVULANATE 875 MG TAB PO SCH (08:27)
[2019-02-07] MEDS: ATORVASTATIN 10 MG TAB PO SCH (08:27)
[2019-02-07] MEDS: lisinopriL 40 MG TAB PO SCH (08:27)
[2019-02-07] MEDS: METOPROLOL SUCC 25MG EXT REL TAB PO SCH (08:27)
[2019-02-07] MEDS: FLUTICASONE PROPIONATE NA SPR 16 GM BTL SCH (08:27)
[2019-02-07] MEDS ORDERED: POTASSIUM CHLORIDE 20 MEQ TABCR PO ONE (09:30)
--- NOTE | 2019-02-07 16:35 | Discharge Summary ---
Date of Service February 07, 2019 Admission HPI Per Admitting Provider History obtained from patient and records. Medical history is significant for chronic systolic heart failure secondary to nonischemic cardiomyopathy (EF 37%, TTE 2019) sp ICD status post removal secondary to infection, CAD as per records, hypertension, chronic LBBB as per records, COPD, pulmonary hypertension as per records, past tobacco/alcohol abuse as per records, mood disorder, chronic anemia baseline hemoglobin of 11, known aspiration risk. Recent confinement [facility] 3 weeks ago for pacemaker pocket all. Ciprofloxacin Rx completed for Pseudomonas growth. ICD removed during confinement. Poor appetite at home, thinks he is losing weight. Chronic cough symptoms productive of white sputum. Increased coughing noted with water/meal intake as per patient account. No chest pain, no S OB. 1 day history of constant sharp lower abdominal pain with nausea and nonbloody diarrhea. No emesis. At the ER, patient received Zosyn for pneumonia. 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 Admission Exam Per Admitting Provider GENERAL: Slightly uncomfortable, cachectic, occasionally coughing, no respiratory distress SKIN: Pallor , warm HEENT: Alopecia, pale palpebral conjunctivae, no ptosis, dry buccal mucosa NECK : Supple, no tenderness CHEST : Decreased breath sounds , no tenderness HEART : Bradycardic, systolic murmur ABDOMEN: Some distention, nontender EXTREMITIES : No LE swelling/tenderness, no other conspicuous deformities noted NEUROLOGIC : Coherent, no facial asymmetry, no other gross focality Principal Diagnosis Pneumonia Hematochezia Discharge Data Allergies Allergy/AdvReac Type Severity Reaction Status Date / Time No Known Allergies Allergy Unknown Verified 02/03/19 21:24 Consultations 02/03/19 23:30 ED Decision to Admit Stat 02/04/19 13:03 Consult Gastroenterology Routine 02/06/19 07:51 Consult Infectious Diseases Routine Ordered Studies 02/03/19 21:21 CT abd pelvis wo con Stat Hospital Course (1) HCAP (healthcare-associated pneumonia): (2) Lower GI bleed: (3) Chronic systolic heart failure: (4) Severe malnutrition: He was admitted to the hospitalist service and placed on Unasyn after chest x-ray revealed bilateral pleural effusions with bibasilar opacities suggestive of pneumonia. This was in the setting of worsened chronic cough. A CT abdomen pelvis without contrast revealed multiple fluid-filled bowel loops without transition zones to indicate bowel obstruction, no evidence of acute diverticulitis, and a fat-containing right inguinal hernia with no evidence of obstruction. Gastroenterology was consulted. Working differential included but were not limited to infectious colitis, diverticular bleed, hemorrhoidal bleed versus ischemic colitis. There was no current plan for repeat endoscopic evaluation. Stool studies were performed revealing a negative stool culture and negative C. difficile. He did not have evidence of leukocytosis or fever throughout his admission and his H&H stayed stable. He was more anemic than his baseline, however, this was attributed to recent hospitalization with removal of ICD device. No blood transfusion was required during the hospitalization. He continued to improve from a pulmonary standpoint to hospital day 3, when lower lobe crackles were heard on exam. As he is a patient with known decreased ejection fraction, he is at high risk for volume overload. He was not working to breathe or hypoxic at this point was not exhibiting symptoms consistent with a heart failure exacerbation. He did have evidence of pleural effusions on chest x-ray. For these reasons he was given 20 mg of Lasix IV x1 dose. Subsequent diuresis included 2 L off and an improvement in breathing and exam the following day. At time of discharge she was hemodynamically stable and afebrile and tolerating p.o. He was mentating and ambulating at baseline and was cleared by PT to go home. Physical exam was remarkable for clear lungs to auscultation bilaterally, normal health start heart sounds including S1/S2 with no evidence of murmurs, gallops, rubs. Heart sounds were distant. No evidence of edema was noted. Abdomen was soft and nontender without distension. The patient was clearly underweight and cachectic on appearance. Close primary care follow-up is recommended for continued monitoring of weight changes and assist with nutritional needs. Inpatient nutrition did see the patient while here and recommended boost 3 times daily with meals. Of note, one of the initial blood cultures revealed a probable anaerobic gram-negative bacilli present. At this point he had already been switched to Augmentin and was clinically doing well. Infectious disease was consulted and repeat blood cultures which were negative at the time of discharge but not finalized. Per infectious disease this is consistent with possible GI translocation into the blood in the setting of diarrhea. As he was clinically stable on current antibiotic therapy this was recommended for an additional 7 days. Total Time Total Time Spent Total Time Spent (In Minutes): 60 Total Time Includes: Examination of the Patient, Discharge Planning, Medication Reconciliation, Communication With Other Providers and Other (arrange follow-up) Discharge Plan Discharge Items Patient Disposition: Home - Self-Care Reason For Visit: ASP PNEUMONIA Discharge Diagnosis: Pneumonia Hematochezia Condition on Discharge: Good Health Concerns: Underweight, malnourished Goals: Supplemental meals added to help gain weight. Work with primary care physician (PCP) to minimize medications and track weight. See outpatient personalization specialist Activity: Resume your previous activity Non-emergency contact: Primary Care Provider Call non-emergency contact if: you have any medication questions, your symptoms worsen, your pain is not controlled, your pain is worsening, your pain is unusual for you, your pain is concerning for you and you have a fever Follow-up/Referrals: Taylor Lopez DO [Primary Care Provider] - Diet: Low Sodium (2gm) Diet Texture: Dental soft (bite-sized) Diet Comment: Add Boost supplements three times daily with meals Addtl Attending Provider Instructions: Please take all medications as instructed on discharge list below. Please complete entire antibiotic course. It is recommended that you follow-up with your primary care physician within one week of discharge to ensure no further episodes of bloody stool occurred, ensure you are doing well after going home, and ensuring there is follow-up on the final results of your blood cultures taken in the hospital. 02/13/2019 11:00 AM Taylor Lopez DO [facility] A repeat chest xray is recommended in 4-6 weeks to ensure complete resolution of pneumonia. This can be ordered through your PCP. Please continue to work with your PCP regarding investigation of your chronic cough symptoms. It may be helpful to see an ENT physician or tree inspector as outpatient. It was a pleasure taking care of you! Please call if you have any questions or problems. You can reach a [facility] hospitalist on duty at [facility] 24 hours a day by calling [phone]. Take care of yourself. [facility]ari [facility] P[facility] Studies at Discharge: Yes Studies:: blood cultures Stand-Alone Forms: My [facility] Medications and DC Order Prescriptions: New amoxicillin-pot clavulanate 875-125 mg Tablet 1 tab PO BIDM 7 Days Qty: 14 RF: 0 Continued atorvastatin 10 mg tablet 10 mg PO QAM RF: 0 aspirin 81 mg Tablet,Delayed Release (Dr/Ec) 81 mg PO QAM RF: 0 mirtazapine 45 mg tablet 45 mg PO HS RF: 0 metoprolol succinate 25 mg tablet extended release 24 hr 25 mg PO QAM RF: 0 lisinopril 40 mg tablet 40 mg PO QAM RF: 0 fluticasone propionate 50 mcg/actuation spray,suspension 2 spray intranasal BID RF: 0 doxazosin 2 mg tablet 2 mg PO QAM RF: 0 amiodarone 200 mg tablet 200 mg PO QAM RF: 0 Discharge Orders: Discharge Order (Routine); Ordered 02/07/19 Ordered By: Yari Sarah Admission Data Admit Date/Time: 02/04/19 01:55 Attending Provider: Yari Sarah Admit Provider: Cj Galeana Primary Care Provider: Taylor Lopez Other Providers: Cj Galeana ; Yeny Kwok ; Len Banks
== END 2019-02-07 17:40 | disposition home or self-care (01) | DRG 193 ==
LOC: ED 20:47 → 4W 02-04 01:55

== ENCOUNTER 2019-02-09 22:06 | Inpatient (IN) ==
[2019-02-09 22:32] LABS: Basophils # (auto) 0.03 K/uL (0-0.2); Basophils % (auto) 0.3 %; Eosinophils # (auto) 0.37 K/uL (0-0.5); Eosinophils % (auto) 3.8 %; Hematocrit (blood only) 37.5 % (42-52); Hemoglobin 13.1 g/dL (14.0-18.0); Immature Granulocytes # (auto) 0.02 K/uL (0.00-0.02); Immature Granulocytes % (auto) 0.2 %; Lymphocytes # (auto) 1.35 K/uL (1.2-3.4); Lymphocytes % (auto) 13.8 %; Mean Corpuscular Hemoglobin 34.2 pg (25-34); Mean Corpuscular Hgb Conc 34.9 g/dL (32-36); Mean Corpuscular Volume 97.9 fL (80-100); Mean Platelet Volume 11.1 fL (7.4-10.4); Monocytes # (auto) 0.66 K/uL (0.11-0.59); Monocytes % (auto) 6.8 %; Neutrophils # (auto) 7.33 K/uL (1.4-6.5); Neutrophils % (auto) 75.1 %; Platelet Count 200 K/uL (130-400); RDW Standard Deviation 46.5 fL (36.4-46.3); Red Blood Count 3.83 M/uL (4.7-6.1); White Blood Count 9.76 K/uL (4.8-10.8)
[2019-02-09 22:40] LABS: Albumin Level 3.4 gm/dl (3.4-5.0); BUN Creatinine Ratio 11.3 (10-20); Calcium 8.9 mg/dl (8.5-10.1); Est GFR (African American) 67.1; Est GFR (Non-African American) 57.9; Potassium 3.7 mmol/L (3.5-5.1)
--- NOTE | 2019-02-09 22:43 | XRay Report ---
XR chest 1V portable CLINICAL HISTORY: SOB dyspnea COMPARISON STUDY: 02/06/2019 FINDINGS: Congestive heart failure. Small bilateral pleural effusions. Upper lungs are clear. IMPRESSION: Congestive heart failure. Small bilateral pleural effusions. The above report was generated using voice recognition software. It may contain grammatical, syntax or spelling errors. Electronically signed by: Justin Freeman M.D. 02/09/2019 10:42 PM
[2019-02-09 22:48] LABS: INR 1.1 (0.9-1.1); Partial Thromboplastin Time 27.5 Seconds (21.0-31.0); Prothrombin Time 11.1 Seconds (9.0-12.0)
[2019-02-09 22:50] LABS: Albumin Globulin Ratio 0.7 (0.9-2); Bilirubin,Total 0.5 mg/dl (0.2-1); Globulin 4.6 gm/dl (2.5-4.0); Troponin I 0.055 ng/ml (0-0.045)
[2019-02-09] MEDS ORDERED: FUROSEMIDE 40 MG in SYRINGE 0 ML IV ONE (23:18)
--- NOTE | 2019-02-09 23:22 | Emergency Department Note ---
ED Provider Note Name: WENCESLAO WILEY Age: 84 Arrives Via: Ambulance Informant: Patient, EMS CC: Shortness of breath HPI: 84M arrives for evaluation of shortness of breath. Patient with recent admission for pneumonia arrives 2 days post discharge with worsening shortness of breath. Notes wet cough increasing throughout the day. Unable to ambulate due to SHOB. Denies chest pain, syncope, nausea, vomiting, abdominal pain, back pain, urinary symptoms, leg swelling, calf pain, nor other symptoms. Notes that he has not had any fevers last 48 hours. No falls nor injuries. Currently on Augmentin for pneumonia which she states he has been taking. Notes Lasix while in hospital but none since. Denies cardiac history other than requiring Pacemaker which was removed. History of Afib on amiodarone, metoprolol and Aspirin. ROS: See above HPI for pertinent positives & negatives. A total of 10 systems reviewed and were otherwise negative. Past Medical History:See Below Past Surgical History:See Below Family History:See Below Social History:See Below Home Medications:See Below Allergies:See Below Vitals:BP 143/67, P 67, R 21, T 36.5, O2 99% NC Physical Exam: GENERAL: Patient is unwell appearing and in moderate distress. EYES: No scleral icterus, unremarkable pupils. ENT: Mucous membranes moist, no nasal congestion. NECK: No masses appreciated, nomeningismus, trachea is midline. RESPIRATORY: Diffuse wet crackles all lung hearn. CARDIOVASCULAR: Regular rate and rhythm.No murmurs, rubs, gallops appreciated. GASTROINTESTINAL: Abdomen soft, non-tender, no peritonitis.Bowel sounds posit dina.No masses appreciated. BACK: No midline tenderness, no CVA tenderness EXTREMITIES: Normal motion all extremities, no cyanosis, no edema. NEUROLOGIC: Alert and oriented, no acute motor or sensory deficits, no focal weakness, cranial nerves grossly intact. SKIN: No rash, no jaundice, no diaphoresis. ED Course: Prior Medical Record, Triage/Nursing Notes, Medications, Allergies reviewed by Me Vital Signs: reviewed and remarkable for Hypoxia on room air Labs:Reviewed and remarkable for + trop Interventions: Saline Lock, NC O2, Lasix 40mg IV Imaging:X ray results are stated below per my interpretation: Chest: 1 view: Bilateral congestive failure worse from CXR 02/03/19 EKG:Per My Interpretation: Indication SHOB. Sinus with PVC, LBBB. 65 bpm. QTC 499. No acute ischemia. Similar to 02/03/19. Consults:Dr Dominguez who will evaluate further Reassessments/Times: Stable, breathing comfortably on NC Blood pressure:Elevated - Referred to Hospitalist Disposition:Hospitalization Differentials: Infectious, Reactive Airway Disease, Pneumonia, Pneumothorax, COPD, CHF, ACS, Pulmonary Embolism, amongst other etiologies entertained.amongst other pathologies. Medical Decision Making: Pleasant 84 yr old male just discharged a few days ago for pneumonia arrives with worsening shortness of breath. He is clinically fluid overloaded on arri ora and CXR consistent with this. Requiring NC O2. Not on lasix at home and denies cardiac history other than pacer. Will need diuresis and thus IV lasix given. No clear evidence of infection at this time. He does not have symptoms of PE/Dissection at this time. He is breathing comfortably on NC O2. Hospitalist consulted for further management. Impression: Acute CHF Raheem Modi MD Impression & Plan Acute CHF (congestive heart failure) Past Med/Surg History Social History Preferred Language: Cuban Communication Ability: Effective Sock Ironer Required: No Beliefs That Will Affect Care: None marital status: Current Living Situation: Spouse Current Living Situation Comment: GRANDDAUGHTER current occupational status: retired Other Information That Helps Us Care for You: No Feels Safe at Home: No Is there a partner from a previous relationship who is making you feel unsafe now?: No Any Concerns about Your Family Situation: No Would You Like to Speak to Someone About Your Situation: No Safety Concerns: Feels Safe At This Time Smoking Status: Former smoker Tobacco Type: cigarettes ; Cigarettes Per Day: 20 ; Do You Dip or Chew Tobacco: No ; Second Hand Exposure: No ; Tobacco Cessation Education Requested by Patient: No Hx Alcohol Use: No Hx Substance Use: No Results & Data Vital Signs Vital Signs - 24 hr 02/09/19 22:14 02/09/19 22:18 02/09/19 22:24 Temperature 36.5 C Temperature Source Oral Sepsis Recent Fever Within 48 Hours No Sepsis Action Taken by Nursing No Action Required Oxygen Flow Rate - Titration 2 Pulse Oximetry Post Tiitration 99 Pulse Rate 71 Pulse Rate from SpO2 Sensor Respiratory Rate 21 Respiratory Effort / Characteristics Short of Breath Respiratory Depth Normal Blood Pressure 181/100 H Blood Pressure Mean 127 Pulse Oximetry 94 94 Oxygen Delivery Method Room Air Room Air Nasal Cannula 02/09/19 22:30 02/09/19 22:37 Temperature Temperature Source Sepsis Recent Fever Within 48 Hours Sepsis Action Taken by Nursing Oxygen Flow Rate - Titration Pulse Oximetry Post Tiitration Pulse Rate 66 67 Pulse Rate from SpO2 Sensor 65 67 Respiratory Rate 15 21 Respiratory Effort / Characteristics Respiratory Depth Blood Pressure 143/67 H Blood Pressure Mean 92 Pulse Oximetry 99 99 Oxygen Delivery Method Laboratory Data Result diagrams: 02/09/19 22:15 02/09/19 22:15 Lab Results 02/09/19 02/09/19 02/09/19 Range/Units 22:15 22:15 22:15 WBC 9.76 (4.8-10.8) K/uL RBC 3.83 L (4.7-6.1) M/uL Hgb 13.1 L (14.0-18.0) g/dL Hct 37.5 L (42-52) % MCV 97.9 (80-100) fL MCH 34.2 H (25-34) pg MCHC 34.9 (32-36) g/dL RDW Std Deviation 46.5 H (36.4-46.3) fL RDW Coeff of Ty 13.0 (11.5-14.5) % Plt Count 200 (130-400) K/uL MPV 11.1 H (7.4-10.4) fL Immature Gran % (Auto) 0.2 % Neut % (Auto) 75.1 % Lymph % (Auto) 13.8 % Wallace % (Auto) 6.8 % Eos % (Auto) 3.8 % Baso % (Auto) 0.3 % Immature Gran # (Auto) 0.02 (0.00-0.02) K/uL Neut # (Auto) 7.33 H (1.4-6.5) K/uL Lymph # (Auto) 1.35 (1.2-3.4) K/uL Wallace # (Auto) 0.66 H (0.11-0.59) K/uL Eos # (Auto) 0.37 (0-0.5) K/uL Baso # (Auto) 0.03 (0-0.2) K/uL PT 11.1 (9.0-12.0) Seconds INR 1.1 (0.9-1.1) APTT 27.5 (21.0-31.0) Seconds PTT Ratio 1.0 Sodium 132 L (136-145) mmol/L Potassium 3.7 (3.5-5.1) mmol/L Chloride 99 (98-107) mmol/L Carbon Dioxide 27 (21-32) mmol/L Anion Gap 6.0 (3-11) BUN 13 (7-18) mg/dl Creatinine 1.16 (0.6-1.4) mg/dl Est Cr Clr Drug Dosing 39.0 ml/min Est GFR ( Amer) 67.1 Est GFR (Non-Af Amer) 57.9 BUN/Creatinine Ratio 11.3 (10-20) Glucose 125 H (70-99) mg/dl Calcium 8.9 (8.5-10.1) mg/dl Total Bilirubin 0.5 (0.2-1) mg/dl AST 19 (15-37) U/L ALT 26 (12-78) U/L Alkaline Phosphatase 74 (45-117) U/L Troponin I 0.055 H* (0-0.045) ng/ml Total Protein 8.0 (6.4-8.2) gm/dl Albumin 3.4 (3.4-5.0) gm/dl Globulin 4.6 H (2.5-4.0) gm/dl Albumin/Globulin Ratio 0.7 L (0.9-2) Administered Medications Discontinued Medications Furosemide (Lasix) Confirm Administered Dose 40 mg IV .STK-MED ONE Stop: 02/09/19 23:54 Last Admin: 02/09/19 23:55 Dose: Not Given Documented by: [id number] Furosemide 40 mg/ Syringe 4 mls @ 4 mls/min IV ONE ONE Stop: 02/09/19 23:19 Last Admin: 02/09/19 23:55 Dose: 4 mls/min Documented by: [id number] Discharge Plan Visit Data *Final* Discharge Date/Time: 02/10/19 00:46 Chief Complaint: Shortness of Breath/Dyspnea Stated Complaint: SOB ED Provider: Raheem Modi Discharge Problem: Acute CHF (congestive heart failure) Patient Disposition: Admitted As Inpatient Discharge Instructions Interventions: ED Discharge Assessment Last Done: 02/10/19 00:46
[2019-02-09] MEDS ORDERED: FUROSEMIDE 40 MG/4 ML VIAL IV ONE (23:53)
[2019-02-10] MEDS ORDERED: ONDANSETRON INJ 2 MG/ML 2 ML VIAL IV PRN (01:14)
[2019-02-10] MEDS ORDERED: POLYETHYLENE (MIRALAX) 17 GM PACK PO PRN (01:14)
[2019-02-10] MEDS ORDERED: NITROGLYCERIN SL 0.4 MG/TAB TAB SL PRN (01:14)
[2019-02-10] MEDS ORDERED: ALBUT/IPRATROP 3MG/0.5MG NEB 3 ML VIAL NEB PRN (01:14)
[2019-02-10] MEDS ORDERED: ACETAMINOPHEN 325 MG TAB PO PRN (01:14)
--- NOTE | 2019-02-10 01:51 | History and Physical Report ---
DATE OF ADMISSION: 02/10/2019 CHIEF COMPLAINT: Shortness of breath. HISTORY OF PRESENT ILLNESS: This is an 84-year-old male with past medical history significant for hyperlipidemia, chronic obstructive pulmonary disease, chronic systolic and diastolic congestive heart failure, last echocardiogram ejection fraction showed 30%, left bundle-branch block, hypertension, nonischemic cardiomyopathy, history of nonsustained ventricular tachycardia, severe malnutrition, benign prostatic hypertrophy, history of infection of the pacemaker pocket, which was taken out recently at [place], depression and tobacco use disorder, who was recently in the hospital for healthcare associated pneumonia. He was discharged on 02/07/2019, discharged on Augmentin for an additional 7 days. The patient states since last 2 days at home, he was getting short of breath with minimal exertion, walking into his kitchen making him short of breath. He is having cough with whitish phlegm. Denies any fever or chills. No chest pain. No nausea. No vomiting. No headache. No dizziness. No blurred vision. No earache. No runny nose. No sore throat. No difficulty swallowing. Appetite is okay. Sleeping okay. No orthopnea. No swelling in the legs. No rash. No nausea. No vomiting. No abdominal pain. Normal bowel and bladder movements. No hematuria or hematochezia or melena. No burning micturition. ALLERGIES: No known drug allergies. PAST MEDICAL HISTORY: As mentioned above. PAST SURGICAL HISTORY: Left heart catheterization, colonoscopy with biopsy, appendectomy, cataract surgeries, removal of the defibrillator, tonsillectomy, adenoidectomy and left total hip replacement. MEDICATIONS: The patient was recently discharged on Augmentin p.o. b.i.d. for 7 days, he has five more days left, atorvastatin 10 mg p.o. daily, aspirin 81 mg p.o. daily, Remeron 45 mg p.o. at bedtime, Toprol-XL 25 mg p.o. a.m., lisinopril 40 mg p.o. a.m., Flonase 2 sprays intranasal b.i.d., doxazosin 2 mg p.o. a.m. and amiodarone 200 mg p.o. a.m. FAMILY HISTORY: Significant for mother has hypertension. Uncle has stroke. SOCIAL HISTORY: and lives with his . Former smoker, quit in 04/2018. Smoked 1 pack a day for 44 years. Quit alcohol in 1967. No drug use. REVIEW OF SYMPTOMS: As per HPI. Rest of review of systems is negative. PHYSICAL EXAMINATION: GENERAL: The patient is old and frail, not in acute distress. VITAL SIGNS: Temperature 36.5, pulse 67, respiratory rate 21, blood pressure 143/67 and oxygen 99% on nasal cannula. HEENT: No pallor. No icterus. Pupils are equal, round and reactive to light. NECK: No JVD. No neck masses. No carotid bruits. CARDIOVASCULAR: S1, S2 heard. Regular rate and rhythm. No murmur. No gallop. RESPIRATORY SYSTEM: Normal AP diameter. No accessory muscle use. No wheezing. Mild bibasilar crackles. ABDOMEN: Soft. Bowel sounds present. Nontender. No distention. CENTRAL NERVOUS SYSTEM: Cranial nerves II through XII grossly intact. Nonfocal. EXTREMITIES: No edema. No erythema. LABORATORY DATA: WBC 9.7, hemoglobin 13.1, hematocrit 37.5 and platelets 200. PT 11.1, INR 1.1 and APTT 27.5. Sodium 132, potassium 3.7, chloride 99, bicarb 27, BUN 13, creatinine 1.1, serum glucose 125, calcium 8.9, total bilirubin 0.5, AST 19, ALT 26 and alkaline phosphatase 74. Troponin I of 0.05. Chest x-ray, congestive heart failure, small bilateral pleural effusions. Electrocardiogram shows sinus rhythm with occasional premature ventricular contractions at a rate of 65. ASSESSMENT AND PLAN: This is an 84-year-old male who presents with shortness of breath and found to be in congestive heart failure. 1. Acute on chronic systolic and diastolic congestive heart failure, last echocardiogram done in December shows ejection fraction of 30% and grade II diastolic dysfunction, not on diuretics at home, received I.V. Lasix 40mg in the Emergency Room and will monitor the response. Continue his home medications of lisinopril, Toprol-XL. Monitor in the tele floor. Consult cardiology in a.m. for further recommendations and optimization of medications. 2. Recent infection of the pacemaker, status post removal at [place]. 3. History of nonsustained ventricular tachycardia, on amiodarone. 4. Hypertension, on lisinopril, Toprol-XL and doxazosin. We will monitor the blood pressure. 5. Hyperlipidemia, on statin. 6. History of recent healthcare associated pneumonia, on Augmentin, which we will continue for 5 more days left. If any concerning, we will get a CT of the chest to rule out any worsening of infection. 7. Depression, on Remeron. 8. History of tobacco use disorder, history of chronic obstructive pulmonary disease, mild, not on any inhalers. We will place him on DuoNebs p.r.n. 9. Deep venous thrombosis prophylaxis, sequential compression devices and heparin subQ 5000 units b.i.d. 10. Disposition: Admit to tele floor. Level 1 full code. Physical therapy and occupational therapy per discharge. Social Service to help with discharge planning. TORID
[2019-02-10] MEDS: FLUTICASONE PROPIONATE NA SPR 16 GM BTL SCH ×2 (07:57→20:12)
[2019-02-10] MEDS: AMOXICILLIN/CLAVULANATE 875 MG TAB PO SCH ×2 (07:57→17:13)
[2019-02-10] MEDS: ASPIRIN 81 MG ECTAB PO SCH (07:58)
[2019-02-10] MEDS: HEPARIN SOD 5,000 UNIT/0.5 ML VIAL SQ SCH ×2 (07:58→20:12)
[2019-02-10] MEDS: DOXAZosin MESYLATE TAB 2 MG TAB PO SCH (07:58)
[2019-02-10] MEDS: AMIODARONE 200 MG TAB PO SCH (07:58)
[2019-02-10] MEDS: METOPROLOL SUCC 25MG EXT REL TAB PO SCH (07:58)
[2019-02-10] MEDS: lisinopriL 40 MG TAB PO SCH (07:59)
[2019-02-10] MEDS: ATORVASTATIN 10 MG TAB PO SCH (07:59)
--- NOTE | 2019-02-10 10:09 | Hospitalist Progress Note ---
Date of Service February 10, 2019 Assessment & Plan (1) Acute CHF (congestive heart failure): (2) Chronic systolic heart failure: (3) Nonischemic cardiomyopathy: (4) Severe malnutrition: (5) Bradycardia: (6) COPD, mild: (7) Dyslipidemia: (8) PVD (peripheral vascular disease): (9) LBBB (left bundle branch block): (10) Hypertension: (11) BPH (benign prostatic hyperplasia): (12) Depression: (13) DVT prophylaxis: ASSESSMENT AND PLAN: This is an 84-year-old male who presents with shortness of breath and found to be in congestive heart failure. 1. Acute on chronic systolic and diastolic congestive heart failure, last echocardiogram done in December shows ejection fraction of 30% and grade II diastolic dysfunction, not on diuretics at home, received I.V. Lasix 40mg in the Emergency Room and will monitor the response. Continue his home medications of lisinopril, Toprol-XL. Monitor in the tele floor. Consult cardiology in a.m. for further recommendations and optimization of medications. 2. Recent infection of the pacemaker, status post removal at [facility]. 3. History of nonsustained ventricular tachycardia, on amiodarone. 4. Hypertension, on lisinopril, Toprol-XL and doxazosin. We will monitor the blood pressure. 5. Hyperlipidemia, on statin. 6. History of recent healthcare associated pneumonia, on Augmentin, which we will continue for 5 more days left. If any concerning, we will get a CT of the chest to rule out any worsening of infection. 7. Depression, on Remeron. 8. History of tobacco use disorder, history of chronic obstructive pulmonary disease, mild, not on any inhalers. We will place him on DuoNebs p.r.n. 9. Deep venous thrombosis prophylaxis, sequential compression devices and heparin subQ 5000 units b.i.d. 10. Disposition: Tele floor. Level 1 full code. Physical therapy and occupational therapy per discharge. Social Service to help with discharge planning. ROS-No Headache, No Visual Changes, No Nausea, No Vomiting, No Fever, No Chills, No Neck Pain or Stiffness, No Chest Pain, No Palpitations, No SOB, No CONNELLY, No Cough, No Sputum, No Wheezing, No Abdominal Pain, No Diarrhea, No Hematemesis, No Hemoptysis, No Unexpected Weight Loss, No Flank pain, No Melena, No Hematochezia, No Frequency, No Urgency, No Burning, No Hematuria, No Rashes, No Diaphoresis. Appetite is Normal Physical Exam Gen-AAO x 3, NAD, Afebrile Head-NCAT, EOMI, PERRLA, Anicteric Sclera, No Posterior Pharyngeal Erythema Neck-Supple, No JVD, No Thyromegaly, No Masses, No LAD, No Bruits Lungs-Clear to Auscultation Bilaterally, No Rales, No Rhonchi, No Wheezing, No Crepitus Chest-No S4, +S1, +S2, No S3, No Murmurs, No Rubs, No Gallops, No Ectopy Abdomen-Soft, Bowel Sounds Present, Non Tender, Non Distended, No Hepatomegaly, No Splenomegaly, No Palpable Masses, No Rebound, No Rigidity, No Guarding Musculoskeletal-Full Range of Motion Bilaterally, No CVAT Extremities-No Cyanosis, No Clubbing, No Edema Nuero-Cranial Nerves II-XII grossly intact, Motor WNL, DTRs WNL, Strength WNL, Non Focal Psych-Normal Mood Labs checked Results & Data Vital Signs (Past 12 Hours) Vital Signs Temp Pulse Pulse Pulse Resp BP BP 02/10/19 07:56 61 02/10/19 07:45 36.6 C 55 L 18 140/65 02/10/19 05:32 36.6 C 52 L 19 132/62 02/10/19 01:31 66 02/10/19 01:04 36.3 C L 66 20 151/81 H 02/10/19 00:46 02/10/19 00:32 67 137/90 02/09/19 22:37 67 21 02/09/19 22:30 66 15 143/67 H 02/09/19 22:24 02/09/19 22:14 36.5 C 71 21 181/100 H Pulse Ox 02/10/19 07:56 02/10/19 07:45 98 02/10/19 05:32 97 02/10/19 01:31 02/10/19 01:04 99 02/10/19 00:46 96 02/10/19 00:32 96 02/09/19 22:37 99 02/09/19 22:30 99 02/09/19 22:24 94 02/09/19 22:14 94 (1) Acute CHF (congestive heart failure) Heart failure type: unspecified Qualified Code(s): I50.9 - Heart failure, unspecified
--- NOTE | 2019-02-10 14:12 | Cardiology Consultation ---
Date of Consultation February 10, 2019 Assessment & Plan (1) Chronic systolic heart failure: (2) Nonischemic cardiomyopathy: (3) LBBB (left bundle branch block): Patient presents with generalized fatigue. Is received 40 mg of IV furosemide. For the most part his symptoms are suggestive of low output syndrome rather than market volume overload, but I do think would be reasonable to proceed with adding a low-dose oral diuretic at present. He is frail and cachectic. As noted, his biventricular pacemaker AICD had recently been extracted with findings of a Pseudomonas infection. At present, I think we should keep him in the hospital for ongoing observation with adding diuretic given his relative low blood pressure at baseline. On telemetry at present sinus bradycardia in the 50 bpm range with left bundle branch block is present without significant tachycardia or bradycardia. He remains on oral amiodarone given h/o PVCs, NSVT. History of Present Illness Attending Physician: Pineda Ramirez DO History of Present Illness Krzysztof Victoria is an 84 year old male seen in cardiology consultation per the request of Dr Dominguez for management of acute on chronic congestive heart failure with reduced ejection fraction due to non ischemic cardiomyopathy. His recent cardiac history dates back to October 2018 when he presented with several months of progressive fatigue and exertional shortness of breath. He had a long-standing previous history of a left bundle branch block, and his echocardiogram performed during that hospital stay revealed new severe left ventricular systolic dysfunction. Cardiac catheterization revealed mild nonobstructive coronary heart disease, and he went on to have implantation of a biventricular pacemaker AICD on 12/04/2018. Post procedure, at device checks, he has been noted to have Significant pocket hematoma. He was placed on a course of oral antibiotics, however the hematoma initially improved and then worsened again and he was referred for hospitalization last month in December 2018. I followed him throughout hospital stay, due to concerns of pocket infection he was transferred to [facility] on 01/13/2019. He underwent device extraction shortly thereafter with findings of Pseudomonas growth from 1 culture obtained at the time of the extraction procedure. He completed a course of IV antibiotics while hos pitalized and was transitioned to a course of oral ciprofloxacin. He recently been seen in outpatient follow-up by Dr. Alfaro of , and after discussion with the patient, and family, the tentative plan was to proceed with ongoing medication therapy rather than reimplantation of the device on the contralateral side, as his ejection fraction had not improved after 6 weeks of biventricular pacing. Krzysztof had been readmitted earlier this month from 02/04/19 to 02/07/19 for concerns of abdominal discomfort and possible pneumonia. He was discharged with plans to complete a course of Augmentin. He is only been out of the hospital for 2 days when he was readmitted with symptoms of generalized fatigue and shortness of breath. Chest x-ray performed on presentation yesterday revealed interstitial edema and small bilateral pleural effusions. Allergies Allergy/AdvReac Type Severity Reaction Status Date / Time No Known Allergies Allergy Unknown Verified 02/09/19 23:56 Home Medications Home Medications Medication Instructions Recorded Confirmed Type aspirin 81 mg PO QAM 10/27/18 02/09/19 History atorvastatin 10 mg PO QAM 10/27/18 02/09/19 History doxazosin 2 mg PO QAM 10/27/18 02/09/19 History fluticasone propionate 2 spray INTRANASAL BID 10/27/18 02/09/19 History lisinopril 40 mg PO QAM 10/27/18 02/09/19 History metoprolol succinate 25 mg PO QAM 10/27/18 02/09/19 History mirtazapine 45 mg PO HS 10/27/18 02/09/19 History amiodarone 200 mg PO QAM 11/15/18 02/09/19 History amoxicillin-pot clavulanate 1 tab PO BIDM 7 Days #14 tab 02/07/19 02/09/19 Rx Patient History Social History Preferred Language: Malawian Communication Ability: Effective [employer] Required: No Beliefs That Will Affect Care: None marital status: Current Living Situation: Spouse Current Living Situation Comment: GRANDDAUGHTER current occupational status: retired Other Information That Helps Us Care for You: No Feels Safe at Home: No Is there a partner from a previous relationship who is making you feel unsafe now?: No Any Concerns about Your Family Situation: No Would You Like to Speak to Someone About Your Situation: No Safety Concerns: Feels Safe At This Time Smoking Status: Former smoker Tobacco Type: cigarettes ; Cigarettes Per Day: 20 ; Do You Dip or Chew Tobacco: No ; Second Hand Exposure: No ; Tobacco Cessation Education Requested by Patient: No Hx Alcohol Use: No Hx Substance Use: No Review of Systems Review of Systems: All systems reviewed & are unremarkable except as noted in HPI & below Physical Exam Physical Exam: Temp Pulse Resp BP Pulse Ox 36.5 C 68 17 100/48 L 98 02/10/19 11:40 02/10/19 11:40 02/10/19 11:40 02/10/19 11:40 02/10/19 11:40 Constitutional: + ill appearing and + cachectic Respiratory: Auscultation: + diminished lung sounds (Decreased breath sounds bilaterally at the bases) Cardiovascular: Rate/Rhythm: regular rhythm and + bradycardic Heart Sounds: no murmur Vessels: + JVD (Mildly elevated jugular venous pressure) Extremities: no edema Neurologic: PERRL, EOMI, accommodation nl, no face palsy, no dysarthria Results & Data Laboratory Results Cardiac Enzymes 02/09/19 02/10/19 02/10/19 Range/Units 22:15 05:59 10:49 AST 19 (15-37) U/L Troponin I 0.055 H* 0.088 H* 0.065 H* (0-0.045) ng/ml Coagulation 02/09/19 Range/Units 22:15 PT 11.1 (9.0-12.0) Seconds APTT 27.5 (21.0-31.0) Seconds CBC 02/09/19 Range/Units 22:15 WBC 9.76 (4.8-10.8) K/uL RBC 3.83 L (4.7-6.1) M/uL Hgb 13.1 L (14.0-18.0) g/dL Hct 37.5 L (42-52) % Plt Count 200 (130-400) K/uL Neut # (Auto) 7.33 H (1.4-6.5) K/uL Lymph # (Auto) 1.35 (1.2-3.4) K/uL Baker # (Auto) 0.66 H (0.11-0.59) K/uL Eos # (Auto) 0.37 (0-0.5) K/uL Baso # (Auto) 0.03 (0-0.2) K/uL Comprehensive Metabolic Panel 02/09/19 Range/Units 22:15 Sodium 132 L (136-145) mmol/L Potassium 3.7 (3.5-5.1) mmol/L Chloride 99 (98-107) mmol/L Carbon Dioxide 27 (21-32) mmol/L BUN 13 (7-18) mg/dl Creatinine 1.16 (0.6-1.4) mg/dl Glucose 125 H (70-99) mg/dl Calcium 8.9 (8.5-10.1) mg/dl AST 19 (15-37) U/L ALT 26 (12-78) U/L Alkaline Phosphatase 74 (45-117) U/L Total Protein 8.0 (6.4-8.2) gm/dl Albumin 3.4 (3.4-5.0) gm/dl Intake and Output 02/09/19 02/10/19 02/10/19 22:59 06:59 14:59 Output Total 425 / 425 Balance -425 / -425 Output: Urine 425 / 425 Other: Other Intake Source sips # Unmeasured Voids 1 Weight 57.2 kg 51.2 kg Medications Administered Current Inpatient Medications Acetaminophen (Tylenol) 650 mg PO Q4H PRN PRN Reason: Pain or Fever Stop: 03/12/19 01:13 Albuterol (Duoneb) 3 ml NEB Q4R PRN PRN Reason: Shortness Of Breath Or Wheezing Stop: 03/12/19 01:13 Amiodarone HCl (Cordarone) 200 mg PO [facility] Stop: 03/12/19 08:59 Last Admin: 02/10/19 07:58 Dose: 200 mg Documented by: Amoxicillin/Clavulanate Potassium (Augmentin 875mg) [facility] [place] [facility] [place]: 02/17/19 07:59 Last Admin: 02/10/19 07:57 Dose: 1 tab Documented by: Aspirin (Ecotrin Ectab) 81 mg PO [facility] Stop: 03/12/19 08:59 Last Admin: 02/10/19 07:58 Dose: 81 mg Documented by: Atorvastatin Calcium (Lipitor) 10 mg PO [facility] Stop: 03/12/19 08:59 Last Admin: 02/10/19 07:59 Dose: 10 mg Documented by: Doxazosin Mesylate (Cardura) 2 mg PO [facility] Stop: 03/12/19 08:59 Last Admin: 02/10/19 07:58 Dose: 2 mg Documented by: Fluticasone Propionate (Flonase) 2 sprays NA BID [facility] Stop: 03/12/19 08:59 Last Admin: 02/10/19 07:57 Dose: 2 sprays Documented by: Heparin Sodium (Porcine) (Heparin Sodium (Porcine)) 5,000 units SQ Q12 [facility] Stop: 03/12/19 08:59 Last Admin: 02/10/19 07:58 Dose: 5,000 units Documented by: Lisinopril (Zestril) 40 mg PO QAM [facility] Stop: 03/12/19 08:59 Last Admin: 02/10/19 07:59 Dose: 40 mg Documented by: Metoprolol Succinate (Toprol Xl) 25 mg PO QAM [facility] Stop: 03/12/19 08:59 Last Admin: 02/10/19 07:58 Dose: 25 mg Documented by: Mirtazapine (Remeron Solutab) 45 mg PO HS [facility] Stop: 03/12/19 20:59 Nitroglycerin (Nitrostat) 0.4 mg SL UD PRN PRN Reason: Chest Pain Stop: 03/12/19 01:13 Ondansetron HCl (Zofran) 4 mg IV Q6H PRN PRN Reason: Nausea Stop: 03/12/19 01:13 Last Admin: 02/10/19 09:00 Dose: 4 mg Documented by: Polyethylene Glycol (Miralax Powder Packet) 17 gm PO DAILY PRN PRN Reason: Constipation Stop: 03/12/19 01:13
[2019-02-10] MEDS ORDERED: MIRTAZAPINE SOLTAB 15 MG PO SCH (21:00)
[2019-02-11 05:29] LABS: Hematocrit (blood only) 32.8 % (42-52); Mean Corpuscular Hgb Conc 33.5 g/dL (32-36); Mean Corpuscular Volume 98.5 fL (80-100); Mean Platelet Volume 10.7 fL (7.4-10.4); Platelet Count 173 K/uL (130-400); Red Blood Count 3.33 M/uL (4.7-6.1); White Blood Count 6.83 K/uL (4.8-10.8)
[2019-02-11 05:50] LABS: BUN Creatinine Ratio 12.6 (10-20); Calcium 8.4 mg/dl (8.5-10.1); Creatinine Clr Calc Pharmacy 33.2 ml/min; Est GFR (African American) 63.2; Est GFR (Non-African American) 54.5; Potassium 3.6 mmol/L (3.5-5.1)
[2019-02-11] MEDS: lisinopriL 40 MG TAB PO SCH (07:52)
[2019-02-11] MEDS: FLUTICASONE PROPIONATE NA SPR 16 GM BTL SCH (07:53)
[2019-02-11] MEDS: AMIODARONE 200 MG TAB PO SCH (07:53)
[2019-02-11] MEDS: DOXAZosin MESYLATE TAB 2 MG TAB PO SCH (07:53)
[2019-02-11] MEDS: METOPROLOL SUCC 25MG EXT REL TAB PO SCH (07:53)
[2019-02-11] MEDS: AMOXICILLIN/CLAVULANATE 875 MG TAB PO SCH (07:53)
[2019-02-11] MEDS: ATORVASTATIN 10 MG TAB PO SCH (07:53)
[2019-02-11] MEDS: ASPIRIN 81 MG ECTAB PO SCH (07:53)
[2019-02-11] MEDS: HEPARIN SOD 5,000 UNIT/0.5 ML VIAL SQ SCH (07:54)
--- NOTE | 2019-02-11 08:26 | Discharge Summary ---
Date of Service February 11, 2019 Admission HPI Per Admitting Provider 84-year-old male with past medical history significant for hyperlipidemia, chronic obstructive pulmonary disease, chronic systolic and diastolic congestive heart failure, last echocardiogram ejection fraction showed 30%, left bundle-branch block, hypertension, nonischemic cardiomyopathy, history of nonsustained ventricular tachycardia, severe malnutrition, benign prostatic hypertrophy, history of infection of the pacemaker pocket, which was taken out recently at [place], depression and tobacco use disorder, who was recently in the hospital for healthcare associated pneumonia. He was discharged on 02/07/2019, discharged on Augmentin for an additional 7 days. The patient states since last 2 days at home, he was getting short of breath with minimal exertion, walking into his kitchen making him short of breath. He is having cough with whitish phlegm. Denies any fever or chills. No chest pain. No nausea. No vomiting. No headache. No dizziness. No blurred vision. No earache. No runny nose. No sore throat. No difficulty swallowing. Appetite is okay. Sleeping okay. No orthopnea. No swelling in the legs. No rash. No nausea. No vomiting. No abdominal pain. Normal bowel and bladder movements. No hematuria or hematochezia or melena. No burning micturition. Admission Exam Per Admitting Provider GENERAL: The patient is old and frail, not in acute distress. VITAL SIGNS: Temperature 36.5, pulse 67, respiratory rate 21, blood pressure 143/67 and oxygen 99% on nasal cannula. HEENT: No pallor. No icterus. Pupils are equal, round and reactive to light. NECK: No JVD. No neck masses. No carotid bruits. CARDIOVASCULAR: S1, S2 heard. Regular rate and rhythm. No murmur. No gallop. RESPIRATORY SYSTEM: Normal AP diameter. No accessory muscle use. No wheezing. Mild bibasilar crackles. ABDOMEN: Soft. Bowel sounds present. Nontender. No distention. CENTRAL NERVOUS SYSTEM: Cranial nerves II through XII grossly intact. Nonfocal. EXTREMITIES: No edema. No erythema. Principal Diagnosis 1. Acute on chronic systolic and diastolic congestive heart failure 2. Recent infection of the pacemaker, status post removal at [facility]. 3. History of nonsustained ventricular tachycardia 4. Hypertension 5. Hyperlipidemia 6. History of recent healthcare associated pneumonia 7. Depression 8. History of tobacco use disorder 9. History of chronic obstructive pulmonary disease Discharge Exam ROS-No Headache, No Visual Changes, No Nausea, No Vomiting, No Fever, No Chills, No Neck Pain or Stiffness, No Chest Pain, No Palpitations, No SOB, No CONNELLY, No Cough, No Sputum, No Wheezing, No Abdominal Pain, No Diarrhea, No Hematemesis, No Hemoptysis, No Unexpected Weight Loss, No Flank pain, No Melena, No Hematochezia, No Frequency, No Urgency, No Burning, No Hematuria, No Rashes, No Diaphoresis. Appetite is Normal Physical Exam Gen-AAO x 3, NAD, Afebrile, cachectic and frail Head-NCAT, EOMI, PERRLA, Anicteric Sclera, No Posterior Pharyngeal Erythema Neck-Supple, No JVD, No Thyromegaly, No Masses, No LAD, No Bruits Lungs-Clear to Auscultation Bilaterally, No Rales, No Rhonchi, No Wheezing, No Crepitus Chest-No S4, +S1, +S2, No S3, No Murmurs, No Rubs, No Gallops, No Ectopy Abdomen-Soft, Bowel Sounds Present, Non Tender, Non Distended, No Hepatomegaly, No Splenomegaly, No Palpable Masses, No Rebound, No Rigidity, No Guarding Musculoskeletal-Full Range of Motion Bilaterally, No CVAT Extremities-No Cyanosis, No Clubbing, No Edema Nuero-Cranial Nerves II-XII grossly intact, Motor WNL, DTRs WNL, Strength WNL, Non Focal Psych-Normal Mood Discharge Data Allergies Allergy/AdvReac Type Severity Reaction Status Date / Time No Known Allergies Allergy Unknown Verified 02/09/19 23:56 Consultations 02/09/19 23:18 ED Decision to Admit Stat 02/10/19 01:14 Consult Case Management - Discharge Planning Routine 02/11/19 08:00 Consult Cardiology Routine Current Diagnoses Unspecified severe protein-calorie malnutrition (02/10/19) Hyperlipidemia, unspecified (02/10/19) Major depressive disorder, single episode, unspecified (02/10/19) Essential (primary) hypertension (02/10/19) Other cardiomyopathies (02/10/19) Left bundle-branch block, unspecified (02/10/19) Chronic systolic (congestive) heart failure (02/10/19) Heart failure, unspecified (02/10/19) Peripheral vascular disease, unspecified (02/10/19) Chronic obstructive pulmonary disease, unspecified (02/10/19) Benign prostatic hyperplasia without lower urinary tract symptoms (02/10/19) Bradycardia, unspecified (02/10/19) Encounter for prophylactic measures, unspecified (02/10/19) Allergies No Known Allergies Allergy (Unknown, Verified 02/09/19 23:56) Height/Weight/Isolation Height 5 ft 9 in Weight 51.1 kg Chemistry 02/09/19 02/11/19 22:15 05:14 Sodium 132 L 135 L Potassium 3.7 3.6 Chloride 99 99 Carbon Dioxide 27 31 Anion Gap 6.0 5.0 BUN 13 15 Creatinine 1.16 1.22 Glucose 125 H 88 Hospital Course (1) Acute CHF (congestive heart failure): (2) Chronic systolic heart failure: (3) Nonischemic cardiomyopathy: (4) Severe malnutrition: (5) Bradycardia: (6) COPD, mild: (7) Dyslipidemia: (8) PVD (peripheral vascular disease): (9) LBBB (left bundle branch block): (10) Hypertension: (11) BPH (benign prostatic hyperplasia): (12) Depression: (13) DVT prophylaxis: ASSESSMENT AND PLAN: This is an 84-year-old male who presents with shortness of breath and found to be in congestive heart failure. 1. Acute on chronic systolic and diastolic congestive heart failure, last echocardiogram done in December shows ejection fraction of 30% and grade II diastolic dysfunction, not on diuretics at home, received I.V. Lasix 40mg in the Emergency Room and started on PO Lasix by Cardio. 2. Recent infection of the pacemaker, status post removal at [facility]. 3. History of nonsustained ventricular tachycardia, on amiodarone. 4. Hypertension, on lisinopril, Toprol-XL and doxazosin. We will monitor the blood pressure. 5. Hyperlipidemia, on statin. 6. History of recent healthcare associated pneumonia, on Augmentin, which we will continue for 5 more days left. If any concerning, we will get a CT of the chest to rule out any worsening of infection. 7. Depression, on Remeron. 8. History of tobacco use disorder, history of chronic obstructive pulmonary disease DC home today and f/u c PCP and Cards Total Time Total Time Spent Total Time Spent (In Minutes): 45 mns Total Time Includes: Examination of the Patient, Discharge Planning, Medication Reconciliation and Communication With Other Providers Discharge Plan Discharge Items Patient Disposition: Home - Self-Care Reason For Visit: SOB Discharge Diagnosis: 1. Acute on chronic systolic and diastolic congestive heart failure 2. Recent infection of the pacemaker, status post removal at [facility]. 3. History of nonsustained ventricular tachycardia 4. Hypertension 5. Hyperlipidemia 6. History of recent healthcare associated pneumonia 7. Depression 8. History of tobacco use disorder 9. History of chronic obstructive pulmonary disease Condition on Discharge: Fair Activity: Resume your previous activity Lifting: Gradually increase as tolerated Bathing: No limitations Exercise/Sports: Gradually increase as tolerated Driving/Machine Use: None Weightbearing: Full weightbearing Non-emergency contact: Primary Care Provider and Merchandise Processor Call non-emergency contact if: you have any medication questions and your symptoms worsen Follow-up/Referrals: Taylor Lopez DO [Primary Care Provider] - Samuel Henderson DO [Merchandise Processor] - (Call for first opening) Diet: Heart Healthy and Low Sodium (2gm) Fluids: 1200ml (5 cups) Addtl Attending Provider Instructions: Routine f/u Pending Studies at Discharge: No Stand-Alone Forms: My [facility] Medications and DC Order Prescriptions: New furosemide 20 mg Tablet 20 mg PO QAM Qty: 30 RF: 0 Continued atorvastatin 10 mg tablet 10 mg PO QAM RF: 0 aspirin 81 mg Tablet,Delayed Release (Dr/Ec) 81 mg PO QAM RF: 0 mirtazapine 45 mg tablet 45 mg PO HS RF: 0 metoprolol succinate 25 mg tablet extended release 24 hr 25 mg PO QAM RF: 0 lisinopril 40 mg tablet 40 mg PO QAM RF: 0 fluticasone propionate 50 mcg/actuation spray,suspension 2 spray intranasal BID RF: 0 doxazosin 2 mg tablet 2 mg PO QAM RF: 0 amiodarone 200 mg tablet 200 mg PO QAM RF: 0 amoxicillin-pot clavulanate 875-125 mg Tablet 1 tab PO BIDM 7 Days Qty: 14 RF: 0 Discharge Orders: Discharge Order (Routine); Ordered 02/11/19 Ordered By: Pineda Ramirez Admission Data Admit Date/Time: 02/10/19 00:12 Attending Provider: Pineda Ramirez Admit Provider: Edward Dominguez Primary Care Provider: Taylor Lopez Other Providers: Edward Dominguez ; Krzysztof Davidson ; Samuel Henderson ; Rajeev Ba ; Andrey Hart ; Roel Kidd ; Justin Valdez ; Nancy Reid ; Marilou Zamorano
[2019-02-11] MEDS ORDERED: FUROSEMIDE 20 MG TAB PO SCH (09:00)
--- NOTE | 2019-02-11 10:30 | Cardiology Progress Note ---
Date of Service February 11, 2019 Assessment & Plan (1) Chronic systolic heart failure: (2) Nonischemic cardiomyopathy: (3) LBBB (left bundle branch block): On telemetry at present sinus bradycardia in the 50 bpm range with left bundle branch block is present without significant tachycardia or bradycardia. He remains on oral amiodarone given h/o PVCs, NSVT. Stable for discharge with the addition of low dose furosemide 20 mg daily. Renal function stable. BP improved compared to yesterday. He already has follow up with me in early February ,and he may keep this visit. Subjective CC: follow up exertional fatigue and shortness of breath Subjective: pt improved. Eager for discharge. Review of Systems Review of Systems: All systems reviewed & are unremarkable except as noted in HPI & below Physical Exam Physical Exam: Temp Pulse Resp BP Pulse Ox 36.8 C 57 L 18 136/61 92 02/11/19 09:20 02/11/19 09:20 02/11/19 09:20 02/11/19 09:20 02/11/19 09:20 Constitutional: + cachectic Respiratory: no rales or rhonchi, mildly decreased BS at the bases Cardiovascular: RRR, no murmur, no edema Gastrointestinal (Abdomen): normal bowel sounds, soft, nontender, no hepatosplenomegaly Neurologic: PERRL, EOMI, accommodation nl, no face palsy, no dysarthria Results & Data Vital Signs (Past 12 Hours) Vital Signs Temp Pulse Pulse Pulse Resp BP Pulse Ox 02/11/19 09:20 36.8 C 54 L 57 L 18 136/61 92 02/11/19 08:00 50 L 02/11/19 07:21 36.8 C 54 L 18 136/61 92 02/11/19 05:56 92 02/11/19 02:39 36.6 C 51 L 17 135/60 100 02/10/19 23:17 36.8 C 56 L 17 134/69 99 02/10/19 23:01 50 L Laboratory Results Cardiac Enzymes 02/10/19 02/10/19 Range/Units 10:49 16:51 Troponin I 0.065 H* 0.049 H* (0-0.045) ng/ml CBC 02/11/19 Range/Units 05:14 WBC 6.83 (4.8-10.8) K/uL RBC 3.33 L (4.7-6.1) M/uL Hgb 11.0 L (14.0-18.0) g/dL Hct 32.8 L (42-52) % Plt Count 173 (130-400) K/uL Comprehensive Metabolic Panel 02/11/19 Range/Units 05:14 Sodium 135 L (136-145) mmol/L Potassium 3.6 (3.5-5.1) mmol/L Chloride 99 (98-107) mmol/L Carbon Dioxide 31 (21-32) mmol/L BUN 15 (7-18) mg/dl Creatinine 1.22 (0.6-1.4) mg/dl Glucose 88 (70-99) mg/dl Calcium 8.4 L (8.5-10.1) mg/dl Intake and Output 02/10/19 02/11/19 02/11/19 22:59 06:59 14:59 Intake Total 520 / 1150 Output Total 100 / 725 225 / 725 Balance 420 / 425 -225 / 425 Intake: Oral 520 / 1150 Output: Urine 100 / 725 225 / 725 Other: Other Intake Source sips Weight 51.2 kg 51.1 kg 51.1 kg Patient Weight 02/12/19 06:59 Weight 51.1 kg Medications Administered Current Inpatient Medications Acetaminophen (Tylenol) 650 mg PO Q4H PRN PRN Reason: Pain or Fever Stop: 03/12/19 01:13 Albuterol (Duoneb) 3 ml NEB Q4R PRN PRN Reason: Shortness Of Breath Or Wheezing Stop: 03/12/19 01:13 Amiodarone HCl (Cordarone) 200 mg PO [facility] Stop: 03/12/19 08:59 Last Admin: 02/11/19 07:53 Dose: 200 mg Documented by: Amoxicillin/Clavulanate Potassium ([facility]in 875mg) [facility] Stop: 02/17/19 07:59 Last Admin: 02/11/19 07:53 Dose: 1 tab Documented by: Aspirin (Ecotrin Ectab) 81 mg PO [facility] Stop: 03/12/19 08:59 Last Admin: 02/11/19 07:53 Dose: 81 mg Documented by: Atorvastatin Calcium (Lipitor) 10 mg PO [facility] Stop: 03/12/19 08:59 Last Admin: 02/11/19 07:53 Dose: 10 mg Documented by: Doxazosin Mesylate (Cardura) 2 [facility] Stop: 03/12/19 08:59 Last Admin: 02/11/19 07:53 Dose: 2 mg Documented by: Fluticasone Propionate (Flonase) 2 sprays NA BID [facility] Stop: 03/12/19 08:59 Last Admin: 02/11/19 07:53 Dose: 2 sprays Documented by: Furosemide (Lasix) 20 mg PO QAM [facility] Stop: 03/13/19 08:59 Last Admin: 02/11/19 07:53 Dose: 20 mg Documented by: Heparin Sodium (Porcine) (Heparin Sodium (Porcine)) 5,000 units SQ Q12 [facility] Stop: 03/12/19 08:59 Last Admin: 02/11/19 07:54 Dose: 5,000 units Documented by: Lisinopril (Zestril) 40 [facility] Stop: 03/12/19 08:59 Last Admin: 02/11/19 07:52 Dose: 40 mg Documented by: Metoprolol Succinate (Toprol Xl) [facility] Stop: 03/12/19 08:59 Last Admin: 02/11/19 07:53 Dose: 25 mg Documented by: Mirtazapine (Remeron Solutab) 45 mg PO [facility] Stop: 03/12/19 20:59 Last Admin: 02/10/19 21:51 Dose: 45 mg Documented by: Nitroglycerin (Nitrostat) 0.4 mg SL UD PRN PRN Reason: Chest Pain Stop: 03/12/19 01:13 Ondansetron HCl (Zofran) 4 mg IV Q6H PRN PRN Reason: Nausea Stop: 03/12/19 01:13 Last Admin: 02/10/19 09:00 Dose: 4 mg Documented by: Polyethylene Glycol (Miralax Powder Packet) 17 gm PO DAILY PRN PRN Reason: Constipation Stop: 03/12/19 01:13
== END 2019-02-11 11:45 | disposition home or self-care (01) | DRG 193 ==
LOC: ED 22:06 → 2S 02-10 00:12

== ENCOUNTER 2019-05-03 09:10 | Inpatient (IN) ==
[2019-05-03 09:50] LABS: Basophils # (auto) 0.05 K/uL (0-0.2); Basophils % (auto) 0.7 %; Eosinophils % (auto) 3.9 %; Hematocrit (blood only) 36.7 % (42-52); Hemoglobin 12.4 g/dL (14.0-18.0); Immature Granulocytes # (auto) 0.01 K/uL (0.00-0.02); Immature Granulocytes % (auto) 0.1 %; Lymphocytes # (auto) 1.17 K/uL (1.2-3.4); Lymphocytes % (auto) 15.2 %; Mean Corpuscular Hemoglobin 33.7 pg (25-34); Mean Corpuscular Hgb Conc 33.8 g/dL (32-36); Mean Corpuscular Volume 99.7 fL (80-100); Mean Platelet Volume 11.2 fL (7.4-10.4); Monocytes # (auto) 0.63 K/uL (0.11-0.59); Monocytes % (auto) 8.2 %; Neutrophils # (auto) 5.53 K/uL (1.4-6.5); Neutrophils % (auto) 71.9 %; Platelet Count 174 K/uL (130-400); RDW Coefficient of Variation 14.1 % (11.5-14.5); RDW Standard Deviation 51.2 fL (36.4-46.3); Red Blood Count 3.68 M/uL (4.7-6.1); White Blood Count 7.69 K/uL (4.8-10.8)
[2019-05-03 10:08] LABS: INR 1.1 (0.9-1.1); Partial Thromboplastin Time 26.8 Seconds (21.0-31.0); Prothrombin Time 11.3 Seconds (9.0-12.0)
--- NOTE | 2019-05-03 10:14 | XRay Report ---
XR chest 1V portable CLINICAL HISTORY: 84 years-old Male presenting with Chest Pain. TECHNIQUE: Portable upright AP view of the chest was obtained. COMPARISON: 02/09/2019. FINDINGS: Atherosclerosis of the aortic arch. Cardiac silhouette enlarged. Pulmonary vascular and interstitial prominence. Bibasilar opacities with a gradient of density. Small bilateral pleural effusions. No pne umothorax. Osteopenia suspected. Cholecystectomy clips noted. IMPRESSION: 1. Cardiomegaly with congestive change or mild pulmonary edema with layering bilateral pleural effus ions. This is overall slightly improved from prior. ACT 112: Negative or not required by law. Electronically signed by: Hemant Ho M.D. 05/03/2019 10:13 AM
[2019-05-03 10:18] LABS: Albumin Globulin Ratio 0.8 (0.9-2); Albumin Level 3.2 gm/dl (3.4-5.0); BUN Creatinine Ratio 13.2 (10-20); Bilirubin,Total 0.8 mg/dl (0.2-1); Calcium 8.9 mg/dl (8.5-10.1); Creatinine Clr Calc Pharmacy 39.2 ml/min; Est GFR (African American) 65.7; Est GFR (Non-African American) 56.7; Globulin 4.1 gm/dl (2.5-4.0); Potassium 4.1 mmol/L (3.5-5.1); Total Protein 7.3 gm/dl (6.4-8.2); Troponin I 0.039 ng/ml (0-0.045)
[2019-05-03 10:19] LABS: Influenza A virus by PCR Neg for Influ A (Neg); Influenza B virus by PCR Neg for Influ B (Neg)
[2019-05-03] MEDS ORDERED: FUROSEMIDE 40 MG/4 ML VIAL IV STA (10:55)
--- NOTE | 2019-05-03 12:29 | History & Physical Report ---
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 In ED pt remains hemodynamically stable saturating well on room air, afebrile. Chest x-ray reveals cardiomegaly with congestive change and layering bilateral pleural effusions. Lab work notable for H&H 12.4 and 36.7, negative for influenza, troponin 0.039, TSH 3.12. Received 20 mg IV Lasix in ED. Pt with decompensation of acute on chronic combined systolic and diastolic CHF, last EF 30% Admit to PCU Obtain echocardiogram Dr. Cuellar to discuss case with cardiology - monitor initial diuretic response Strict I's and O's Daily weights repeat xray in a.m. continue metoprolol, lisinopril (4) COPD, mild: No acute exacerbation Currently no longer tobacco user (5) Dyslipidemia: continue statin (6) Hypertension: Blood pressure stable Continue lisinopril and metoprolol (7) NSVT (nonsustained ventricular tachycardia): Continue amiodarone (8) LBBB (left bundle branch block): chronic (9) BPH (benign prostatic hyperplasia): continue doxazosin (10) DVT prophylaxis: lovenox SQ 30mg daily Disposition: admit to PCU Follow up: PCP upon discharge Patient was seen and examined in collaboration with Dr. Cuellar, please see addendum Starting 05/04/2019 pt will be under the care of Dr. 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 Over the past few days he has been waking up in the melanite secondary to significant shortness of breath. Upon sitting up and standing his symptoms do improve. He further complains of dyspnea on exertion, PND, and chronic poor appetite. He states his weight has been stable at 118 pounds. He denies any lower extremity edema. He denies any other recent illness, fever, chills, sweats, lightheadedness, dizziness, syncope, chest pain, palpitations, hemoptysis, nausea, vomiting, abdominal pain, dysuria, increased urgency or frequency with urination. He states his bowels have been moving, "with encouragement." He has been using [id number]-lrh-cwnlish probiotic and stool softener. He does not monitor his fluid intake. Of significance patient has had multiple recent confinements. Initially biventricular pacemaker/AICD placed 11/21/[address] Zamorano. 01/11- hospitalized [facility] secondary to suspected pacemaker infection, later transferred to [place] which she had pacer/AICD removed on 01/14 and treated with antibiotics, culture grew Pseudomonas. Hospitalized 02/04 to 02/07/2019 secondary to hospital-acquired pneumonia. Hospitalized 02/10 to 02/11 secondary to acute on chronic systolic CHF treated with diuresis. Allergies Allergy/AdvReac Type Severity Reaction Status Date / Time No Known Allergies Allergy Unknown Verified 05/03/19 10:38 Home Medications Home Medications Medication Instructions Recorded Confirmed Type aspirin 81 mg PO QAM 10/27/18 05/03/19 History atorvastatin 10 mg PO QAM 10/27/18 05/03/19 History doxazosin 2 mg PO QAM 10/27/18 05/03/19 History fluticasone propionate 2 spray INTRANASAL BID 10/27/18 05/03/19 History lisinopril 40 mg PO QAM 10/27/18 05/03/19 History metoprolol succinate 25 mg PO QAM 10/27/18 05/03/19 History mirtazapine 45 mg PO HS 10/27/18 05/03/19 History amiodarone 200 mg PO QAM 11/15/18 05/03/19 History Past Med/Surg History Medical History (Updated 05/03/19 @ 12:39 by Angelica Rendon PA-C) 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 Underwent procedure without any complications; monitored overnight and discharged home. 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 Beliefs That Will Affect Care: None marital status: Current Living Situation: Spouse Current Living Situation Comment: at home current occupational status: retired Other Information That Helps Us Care for You: No Feels Safe at Home: Yes Safety Concerns: Feels Safe At This Time Smoking Status: Former smoker Tobacco Type: cigarettes ; Number of Years Since Quit: 1 ; Second Hand Exposure: No ; Hx Alcohol Use: Yes Hx Substance Use: No Review of Systems Review of Systems: All systems reviewed & are unremarkable except as noted in HPI & below Physical Exam Physical Exam: Constitutional: Thin, cachectic, elderly male, vitals as above, NAD, sitting up in bed, pleasant, conversing easily Head: Normocephalic, Atraumatic, bilateral temporal wasting Eyes: PERRL, conjunctivae normal, anicteric sclerae ENMT: external ear and nose normal, oropharynx normal Neck: trachea midline, no thyromegaly normal visual inspection Respiratory: normal respiratory effort, lungs clear to auscultation with bibasilar crackles, expiratory wheeze cleared with coughing, minimal rhonchi, no rales. Normal insp/exp effort, no accessory muscle use Cardiovascular: RRR, no murmur, normal S1-S2, no S3-S4 no edema Vessels: no JVD or carotid bruit Chest: normal inspection of chest Abdomen: normal bowel sounds, soft, nontender, no hepatosplenomegaly Musculoskeletal: no cyanosis or clubbing, extremities motor strength 5/5 Skin: no rashes, warm and dry normal turgor Neurologic: PERRL, EOMI, accommodation nl, no face palsy, no dysarthria CN's II-XI intact bilaterally and moves all extremities Psychiatric: A+Ox3, euthymic affect Lymphatic: no cervical or axillary lymphadenopathy : deferred Results & Data Vital Signs (Past 12 Hours) Vital Signs Temp Pulse Resp BP Pulse Ox 05/03/19 12:01 61 24 159/77 H 95 05/03/19 11:40 55 L 17 92 05/03/19 11:31 49 L 14 93 05/03/19 11:30 52 L 15 142/70 H 93 05/03/19 11:20 53 L 15 93 05/03/19 11:10 54 L 15 93 05/03/19 11:01 54 L 16 92 05/03/19 11:00 53 L 18 145/70 H 92 05/03/19 10:50 52 L 16 92 05/03/19 10:40 56 L 18 92 05/03/19 10:30 51 L 16 150/70 H 92 05/03/19 10:00 51 L 20 147/67 H 94 05/03/19 09:30 53 L 20 139/69 92 05/03/19 09:24 94 05/03/19 09:23 94 05/03/19 09:20 36.7 C 62 22 134/88 94 Laboratory Results Short CBC 05/03/19 05/03/19 Range/Units 09:40 09:40 WBC 7.69 (4.8-10.8) K/uL Hgb 12.4 L (14.0-18.0) g/dL Hct 36.7 L (42-52) % Plt Count 174 (130-400) K/uL Creatinine 1.18 (0.6-1.4) mg/dl Troponin I 0.039 (0-0.045) ng/ml BMP 05/03/19 09:40 Sodium 136 Potassium 4.1 Chloride 101 Carbon Dioxide 29 BUN 16 Creatinine 1.18 Glucose 82 Calcium 8.9 Cardiac Enzymes 05/03/19 Range/Units 09:40 Troponin I 0.039 (0-0.045) ng/ml Liver Function 05/03/19 Range/Units 09:40 Total Bilirubin 0.8 (0.2-1) mg/dl AST 20 (15-37) U/L ALT 20 (12-78) U/L Alkaline Phosphatase 76 (45-117) U/L Albumin 3.2 L (3.4-5.0) gm/dl Diagnostic Findings CXR: IMPRESSION: 1. Cardiomegaly with congestive change or mild pulmonary edema with layering bilateral pleural effusions. This is overall slightly improved from prior. Medications Administered Discontinued Medications Furosemide (Lasix) 20 mg IV NOW STA Stop: 05/03/19 10:56 Last Admin: 05/03/19 11:10 Dose: 20 mg Documented by: [id number] ECG Rate (beats per minute): 54 Rhythm: sinus bradycardia Findings: + LBBB Additional Comments: compared to 01/2019 Code Status & VTE Plan Code Status Full Code VTE Prophylaxis Plan VTE Prophylaxis will be ordered: Yes Supervising Physician Co-Signing Physician Notes HISTORY: Record reviewed. Patient interviewed and examined. Care coordinated with Angelica Rendon PA-C. Please refer to her documentation for complete history. Briefly, 84 YO M with history of coronary artery disease, systolic heart failure with LVEF 30%, ventricular arrhythmias, COPD, and other problems. Has not recently required diuretic therapy. Presented to ED with dyspnea on exertion & orthopnea. No chest pain. Occasional cough. No fever. EXAM: General- no distress Lungs- clear to auscultation; no respiratory distress Cardiovascular- RRR; distant heart sounds, no murmur or gallop appreciated; + JVD; no pretibial edema Abdomen- + bowel sounds, soft, nontender Extremities- no cyanosis; no calf tenderness Neuro- alert, oriented Skin- warm & dry DATA: Hemoglobin 12.4, white count 7690, platelet count 174,000. PT 11.3, INR 1.1, PTT 26.8. K 4.1, BUN 16, creatinine 1.18. Trop 0.039. Nasopharyngeal swab for influenza A/B negative. Other lab studies as noted. Chest x-ray reviewed and demonstrated cardiomegaly and congestive heart failure. EKG performed at 0915 reviewed and demonstrated sinus bradycardia at 54 / minute, left bundle branch block with associated repolarization abnormalities. ASSESSMENT AND PLAN: Acute on chronic left ventricular systolic heart failure. Patient received IV furosemide in ED. Follow exam, fluid status, labs and titrate diuretic therapy. Continue lisinopril and metoprolol succinate. Check follow-up echocardiogram. Consult Cardiology. Resuscitation status/advanced directives discussed with patient. He is uncertain whether or not he has a living will. He would like resuscitation attempted in the event of a cardiopulmonary arrest. Please refer to REMI Rendon's documentation for discussion of other issues. (1) Acute CHF (congestive heart failure) Heart failure type: combined systolic and diastolic Qualified Code(s): I50.41 - Acute combined systolic (congestive) and diastolic (congestive) heart failure
--- NOTE | 2019-05-03 12:57 | Electrocardiogram Report ---
Test Reason : Blood Pressure : / mmHG Vent. Rate : 054 BPM Atrial Rate : 054 BPM P-R Int : 208 ms QRS Dur : 168 ms QT Int : 508 ms P-R-T Axes : 054 -25 135 degrees QTc Int : 481 ms Sinus bradycardia Left bundle branch block Abnormal ECG When compared with ECG of 09-FEB-2019 22:23, Premature ventricular complexes are no longer Present Confirmed by Alexander Yang ([id number]) on 05/03/2019 12:57:07 PM Referred By: REFERRED SELF Confirmed By:Alexander Yang
[2019-05-03] MEDS ORDERED: ACETAMINOPHEN 325 MG TAB PO PRN (14:29)
[2019-05-03] MEDS ORDERED: ALUMINUM/MAGNESIUM SUSP 30 ML UDC PO PRN (14:29)
[2019-05-03] MEDS ORDERED: MAGNESIUM HYDROXIDE SUSP 30 ML UDC PO PRN (14:29)
[2019-05-03] MEDS ORDERED: ONDANSETRON INJ 2 MG/ML 2 ML VIAL IV PRN (14:29)
--- NOTE | 2019-05-03 15:46 | Emergency Department Note ---
Entered by Dwaine Dupree acting as a scribe for History of Present Illness General Chief complaint: Shortness of Breath/Dyspnea Time Seen by Provider: 05/03/19 09:16 Source: patient History of Present Illness Provider complaint: Shortness of breath Onset (ago): hour(s) 5 Location: chest Severity: similar to prior episodes Pain Consistency: + constant Exacerbated By: + other (Lying flat) Associated symptoms: + cough and + shortness of breath; no chest pain The patient is an 84 year old male who presents to the Emergency Room with complaints of constant shortness of breath that started about 5 hours ago. The patient states he has a coarse cough that is intermittently productive. The patient also notes that his symptoms are worse while he is lying flat. The patient has no chest pain at this time but does have an extensive cardiac history including a pacer for Afib that got infected and made him septic several months ago. The patient denies any lower extremity swelling or recent weight gain. He also denies being around anyone sick at home. Per EMS, the patient was tachypneic upon their arrival but all of his other vitals were normal. Home Medications Home Medications Medication Instructions Recorded Confirmed Type aspirin 81 mg PO QAM 10/27/18 05/03/19 History atorvastatin 10 mg PO QAM 10/27/18 05/03/19 History doxazosin 2 mg PO QAM 10/27/18 05/03/19 History fluticasone propionate 2 spray INTRANASAL BID 10/27/18 05/03/19 History lisinopril 40 mg PO QAM 10/27/18 05/03/19 History metoprolol succinate 25 mg PO QAM 10/27/18 05/03/19 History mirtazapine 45 mg PO 10/27/18 05/03/19 History amiodarone 200 mg PO QAM 11/15/18 05/03/19 History Allergies Allergy/AdvReac Type Severity Reaction Status Date / Time No Known Allergies Allergy Unknown Verified 05/03/19 10:38 Past Med/Surg History Medical History (Updated 05/03/19 @ 15:46 by Chiki Velasco MD) 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 Underwent procedure without any complications; monitored overnight and discharged home. 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 11/01/18 = widely patent coronary arteries History of cardiac cath SEPTEMBER 2018 AT [facility] NO STENTS History of cataract surgery (Chronic) BILATERAL History of colonoscopy History of tonsillectomy and adenoidectomy (Chronic) History of total left hip replacement (Chronic) Family History Mother Hypertension Brother FHx: myocardial infarction HALF-BROTHER Social History (Updated 05/03/19 @ 12:31 by Angelica Rendon PA-C) Preferred Language: Israeli Communication Ability: Effective Engine Turner Required: No Beliefs That Will Affect Care: None marital status: Current Living Situation: Spouse Current Living Situation Comment: at home current occupational status: retired Other Information That Helps Us Care for You: No Feels Safe at Home: Yes Safety Concerns: Feels Safe At This Time Smoking Status: Former smoker Tobacco Type: cigarettes ; Number of Years Since Quit: 1 ; Second Hand Exposure: No ; Hx Alcohol Use: Yes Hx Substance Use: No Review of Systems See HPI for pertinent positives & negatives. and A total of 10 systems reviewed and were otherwise negative Physical Exam Vital Signs Vital Signs - 24 hr 05/03/19 09:20 05/03/19 09:23 05/03/19 09:24 Temperature 36.7 C Temperature Source Oral Pulse Rate 62 Pulse Rate from SpO2 Sensor Respiratory Rate 22 Respiratory Effort / Characteristics Non-Labored Spontaneous Respiratory Depth Normal Respiratory Pattern Regular Blood Pressure 134/88 Blood Pressure Mean 103 Pulse Oximetry 94 94 94 Oxygen Delivery Method Room Air Room Air Room Air Sepsis Recent Fever Within 48 Hours No Sepsis New/Unexplained Change in Mental Status No Sepsis Action Taken by Nursing No Action Required 05/03/19 09:30 05/03/19 10:00 05/03/19 10:30 Temperature Temperature Source Pulse Rate 53 L 51 L 51 L Pulse Rate from SpO2 Sensor 53 L 51 L 51 L Respiratory Rate 20 20 16 Respiratory Effort / Characteristics Respiratory Depth Respiratory Pattern Blood Pressure 139/69 147/67 H 150/70 H Blood Pressure Mean 94 108 102 Pulse Oximetry 92 94 92 Oxygen Delivery Method Sepsis Recent Fever Within 48 Hours Sepsis New/Unexplained Change in Mental Status Sepsis Action Taken by Nursing 05/03/19 10:40 05/03/19 10:50 05/03/19 11:00 Temperature Temperature Source Pulse Rate 56 L 52 L 53 L Pulse Rate from SpO2 Sensor 56 L 52 L 53 L Respiratory Rate 18 16 18 Respiratory Effort / Characteristics Respiratory Depth Respiratory Pattern Blood Pressure 145/70 H Blood Pressure Mean 109 Pulse Oximetry 92 92 92 Oxygen Delivery Method Sepsis Recent Fever Within 48 Hours Sepsis New/Unexplained Change in Mental Status Sepsis Action Taken by Nursing 05/03/19 11:01 05/03/19 11:10 05/03/19 11:20 Temperature Temperature Source Pulse Rate 54 L 54 L 53 L Pulse Rate from SpO2 Sensor 53 L 54 L 53 L Respiratory Rate 16 15 15 Respiratory Effort / Characteristics Respiratory Depth Respiratory Pattern Blood Pressure Blood Pressure Mean Pulse Oximetry 92 93 93 Oxygen Delivery Method Sepsis Recent Fever Within 48 Hours Sepsis New/Unexplained Change in Mental Status Sepsis Action Taken by Nursing 05/03/19 11:30 05/03/19 11:31 Temperature Temperature Source Pulse Rate 52 L 49 L Pulse Rate from SpO2 Sensor 51 L 50 L Respiratory Rate 15 14 Respiratory Effort / Characteristics Respiratory Depth Respiratory Pattern Blood Pressure 142/70 H Blood Pressure Mean 114 Pulse Oximetry 93 93 Oxygen Delivery Method Sepsis Recent Fever Within 48 Hours Sepsis New/Unexplained Change in Mental Status Sepsis Action Taken by Nursing General: Non-ill appearing older male in no acute distress. HEENT: Normal cephalic atraumatic. Pupils are equal round and reactive to light. Extraocular movements are intact. Oropharynx is pink with moist mucous membranes. No swelling of the mouth lips or tongue. Neck: Supple with a midline trachea. No meningeal signs or stiffness, no JVD or bruits. No Stridor. Chest: Somewhat course breath sounds. No wheezes or rhonchi. No increased work of breathing. Heart: regular rate and rhythm. Abdomen: Soft nontender, nondistended without rebound guarding or rigidity. Extremities: No cyanosis clubbing or edema. No calf tenderness or assymetry Spine/Back. Non tender to palpation. No CVA tenderness Skin: Good turgor without rashes. Neurologic exam: Cranial nerves two through 12 are intact. Motor and sensation are intact and symmetrical throughout. Course Course 0916: Past medical records reviewed. The patient was evaluated in room B07, and a complete history and physical examination were performed. 1055: I reevaluated the patient and updated him on test results. 1101: I discussed the patient's case with Angelica Bro PAC under Dr. Alisa Castro. They agreed to accept the patient for further evaluation. Consultations Consultation #1: I discussed the patient's case with Angelica Bro PAC under Dr. Alisa Castro. They agreed to accept the patient for further evaluation. Time: 11:01 Administered Medications Discontinued Medications Furosemide (Lasix) 20 mg IV NOW STA Stop: 05/03/19 10:56 Last Admin: 05/03/19 11:10 Dose: 20 mg Documented by: [id number] Medical Decision Making Differential Diagnosis Differential Diagnosis includes: CHF, PNA, sepsis, PE, and influenza amongst others. Medical Records Attestation: I reviewed the patient's medical records. Home Medications Current Medication List: was personally reviewed by me Laboratory Data Attestation: I reviewed the patient's lab results. Result diagrams: 05/03/19 09:40 05/03/19 09:40 Lab Results 05/03/19 05/03/19 05/03/19 Range/Units 09:36 09:40 09:40 WBC 7.69 (4.8-10.8) K/uL RBC 3.68 L (4.7-6.1) M/uL Hgb 12.4 L (14.0-18.0) g/dL Hct 36.7 L (42-52) % MCV 99.7 (80-100) fL MCH 33.7 (25-34) pg MCHC 33.8 (32-36) g/dL RDW Std Deviation 51.2 H (36.4-46.3) fL RDW Coeff of Ty 14.1 (11.5-14.5) % Plt Count 174 (130-400) K/uL MPV 11.2 H (7.4-10.4) fL Immature Gran % (Auto) 0.1 % Neut % (Auto) 71.9 % Lymph % (Auto) 15.2 % [place] % (Auto) 8.2 % Eos % (Auto) 3.9 % Baso % (Auto) 0.7 % Immature Gran # (Auto) 0.01 (0.00-0.02) K/uL Neut # (Auto) 5.53 (1.4-6.5) K/uL Lymph # (Auto) 1.17 L (1.2-3.4) K/uL [place] # (Auto) 0.63 H (0.11-0.59) K/uL Eos # (Auto) 0.30 (0-0.5) K/uL Baso # (Auto) 0.05 (0-0.2) K/uL PT 11.3 (9.0-12.0) Seconds INR 1.1 (0.9-1.1) APTT 26.8 (21.0-31.0) Seconds PTT Ratio 1.0 Sodium (136-145) mmol/L Potassium (3.5-5.1) mmol/L Chloride (98-107) mmol/L Carbon Dioxide (21-32) mmol/L Anion Gap (3-11) BUN (7-18) mg/dl Creatinine (0.6-1.4) mg/dl Est Cr Clr Drug Dosing ml/min Est GFR ( Amer) Est GFR (Non-Af Amer) BUN/Creatinine Ratio (10-20) Glucose (70-99) mg/dl Calcium (8.5-10.1) mg/dl Total Bilirubin (0.2-1) mg/dl AST (15-37) U/L ALT (12-78) U/L Alkaline Phosphatase (45-117) U/L Troponin I (0-0.045) ng/ml Total Protein (6.4-8.2) gm/dl Albumin (3.4-5.0) gm/dl Globulin (2.5-4.0) gm/dl Albumin/Globulin Ratio (0.9-2) Lipase (73-393) U/L TSH (0.300-4.500) uIu/ml Specimen Hemolysis Influenza Type A (PCR) Neg for Influ A (Neg) Influenza Type B (PCR) Neg for Influ B (Neg) 05/03/19 05/03/19 Range/Units 09:40 09:40 WBC (4.8-10.8) K/uL RBC (4.7-6.1) M/uL Hgb (14.0-18.0) g/dL Hct (42-52) % MCV (80-100) fL MCH (25-34) pg MCHC (32-36) g/dL RDW Std Deviation (36.4-46.3) fL RDW Coeff of Ty (11.5-14.5) % Plt Count (130-400) K/uL MPV (7.4-10.4) fL Immature Gran % (Auto) % Neut % (Auto) % Lymph % (Auto) % [place] % (Auto) % Eos % (Auto) % Baso % (Auto) % Immature Gran # (Auto) (0.00-0.02) K/uL Neut # (Auto) (1.4-6.5) K/uL Lymph # (Auto) (1.2-3.4) K/uL [place] # (Auto) (0.11-0.59) K/uL Eos # (Auto) (0-0.5) K/uL Baso # (Auto) (0-0.2) K/uL PT (9.0-12.0) Seconds INR (0.9-1.1) APTT (21.0-31.0) Seconds PTT Ratio Sodium 136 (136-145) mmol/L Potassium 4.1 (3.5-5.1) mmol/L Chloride 101 (98-107) mmol/L Carbon Dioxide 29 (21-32) mmol/L Anion Gap 6.0 (3-11) BUN 16 (7-18) mg/dl Creatinine 1.18 (0.6-1.4) mg/dl Est Cr Clr Drug Dosing 39.2 ml/min Est GFR ( Amer) 65.7 Est GFR (Non-Af Amer) 56.7 BUN/Creatinine Ratio 13.2 (10-20) Glucose 82 (70-99) mg/dl Calcium 8.9 (8.5-10.1) mg/dl Total Bilirubin 0.8 (0.2-1) mg/dl AST 20 (15-37) U/L ALT 20 (12-78) U/L Alkaline Phosphatase 76 (45-117) U/L Troponin I 0.039 (0-0.045) ng/ml Total Protein 7.3 (6.4-8.2) gm/dl Albumin 3.2 L (3.4-5.0) gm/dl Globulin 4.1 H (2.5-4.0) gm/dl Albumin/Globulin Ratio 0.8 L (0.9-2) Lipase 63 L (73-393) U/L TSH 3.120 (0.300-4.500) uIu/ml Specimen Hemolysis Influenza Type A (PCR) (Neg) Influenza Type B (PCR) (Neg) Imaging Data Radiologist's Impression: Radiology results as stated below per my review and the radiologist's interpretation: XR chest 1V portable CLINICAL HISTORY: 84 years-old Male presenting with Chest Pain. TECHNIQUE: Portable upright AP view of the chest was obtained. COMPARISON: 02/09/2019. FINDINGS: Atherosclerosis of the aortic arch. Cardiac silhouette enlarged. Pulmonary vascular and interstitial prominence. Bibasilar opacities with a gradient of density. Small bilateral pleural effusions. No pneumothorax. Osteopenia suspected. Cholecystectomy clips noted. IMPRESSION: 1. Cardiomegaly with congestive change or mild pulmonary edema with layering bilateral pleural effusions. This is overall slightly improved from prior. ACT 112: Negative or not required by law. Electronically signed by: Hemant Ho M.D. 05/03/2019 10:13 AM ECG Data Attestation: I personally reviewed and interpreted this ECG as follows: Indication: + SOB/dyspnea Rate (beats per minute): 54 Rhythm: + sinus bradycardia ECG Intervals/blocks: + Left bundle branch block ECG ST segments: no ST depression and no ST elevation Comparison ECG Date: from (02/09/19) Change: no significant change Blood Pressure Blood Pressure Findings: Elevated blood pressure Blood Pressure Disposition: further management by hospitalist ANUP Narrative This patient comes in as described above. He was placed in room B7. He comes in with shortness of breath. He does have a complicated medical history as of late. He did have a pacemaker that was placed and ultimately removed in [place] due to infection he had problems with CHF. He tells me that he was on Lasix for about a month after that but is on no longer. His lungs do sound crackly. He has a left bundle branch block and some sinus bradycardia which is unchanged from previous. he has had no chest pain. His troponin is not elevated his chest x-ray does show congestive heart failure changes. He was given IV Lasix 20 mg and I do think needs to be admitted/observe for diuresis of his congestive heart failure. At this point there is nothing to suggest infection or sepsis. I have consulted the correct Dr. Cuellar to see him in the ER for these measures. Impression & Plan CHF (congestive heart failure), Pleural effusion, SOB (shortness of breath), Weakness Discharge Plan Visit Data *Final* Discharge Date/Time: 05/03/19 13:48 Chief Complaint: Shortness of Breath/Dyspnea ED Provider: Chiki Velasco Discharge Problem: CHF (congestive heart failure), Pleural effusion, SOB (shortness of breath), Weakness Patient Disposition: Admitted As Inpatient Discharge Instructions Interventions: ED Discharge Assessment Last Done: 05/03/19 13:48 Discharge Problem: CHF (congestive heart failure) Qualifiers: Heart failure type: unspecified Heart failure chronicity: unspecified Qualified Code(s): I50.9 - Heart failure, unspecified The scribe's documentation has been prepared under my direction and personally reviewed by me in its entirety. I confirm that the note above accurately reflects all work, treatment, procedures, and medical decision making performed by me.
[2019-05-03] MEDS: AMIODARONE 200 MG TAB PO SCH (15:50)
[2019-05-03] MEDS: ASPIRIN 81 MG ECTAB PO SCH (15:51)
[2019-05-03] MEDS: DOXAZosin MESYLATE TAB 2 MG TAB PO SCH (15:51)
[2019-05-03] MEDS: ATORVASTATIN 10 MG TAB PO SCH (15:52)
[2019-05-03] MEDS: lisinopriL 40 MG TAB PO SCH (15:52)
--- NOTE | 2019-05-03 18:12 | Cardiology Consultation ---
Date of Consultation May 03, 2019 Assessment & Plan (1) Acute on chronic heart failure with preserved ejection fraction (HFpEF): (2) LBBB (left bundle branch block): Patient with acute on chronic congestive heart failure. He has minimal bilateral pleural effusions. Overall, I think his clinical presentation is more consistent with low cardiac output type symptoms rather than volume overload. His previously been off of diuretics due to relative low blood pressure. He received a dose of IV furosemide 20 mg in the emergency room, recommend assessing his response in terms of renal function, clinical symptoms, and blood pressure tomorrow, and consider an additional dose of IV furosemide, versus transitioning him to his previous dose of furosemide 20 mg daily. Sinus bradycardia noted with first-degree AV block and left bundle branch block. Patient remains on metoprolol succinate for treatment of the nonischemic cardiomyopathy, he is also on chronic amiodarone therapy due to history of nonsustained ventricular tachycardia. Future considerations include perhaps discontinuing the amiodarone to allow for higher heart rate, but this would of course, but the drawback of recurrence of his frequent ventricular ectopy/nonsustained VT which seems to be well-controlled at present. Agree with Lovenox for DVT prophylaxis. History of Present Illness Attending Physician: Po Cuellar MD History of Present Illness Krzysztof Victoria is an 84 year old male seen in cardiology consultation per the request of Dr Cuellar for the evaluation of acute on chronic systolic heart failure. The patient is well-known to the undersigned as I have followed him on an inpatient and outpatient basis in the past. He describes subacute worsening of his chronic shortness of breath, with progressive difficulty laying flat to sleep, and presence of nonproductive cough. Past Cardiac History: 1.Longstanding history of left bundle branch block with previous mild to m oderate left ventricular systolic dysfunction, admitted with heart failure decompensation, severe left ventricular systolic dysfunction in October,. 2. Cardiac catheterization at that time revealed nonobstructive coronary disease in October,, and therefore it was felt that he had a nonischemic cardiomyopathy 3. Subsequently underwent biventricular pacemaker AICD on 12/04/2018 4. 01/13/2019 transferred to [facility] [place] [place] due to concerns of device pocket infection and shortly thereafter underwent device extraction at [facility] [place] [place] with pocket culture yielding growth of Pseudomonas -Echocardiogram performed in December prior to device extraction revealed ongoing severe left ventricular systolic dysfunction, without clinical or echocardiographic improvement after 6 weeks of ZIPPER JOINER 5. Completed course of antibiotics including oral ciprofloxacin subsequently 6. Patient and family had a discussion with Dr. Alfaro of EP at [facility] [place] [place], and came to the mutual decision not to reimplant the device. Allergies Allergy/AdvReac Type Severity Reaction Status Date / Time No Known Allergies Allergy Unknown Verified 05/03/19 10:38 Home Medications Home Medications Medication Instructions Recorded Confirmed Type aspirin 81 mg PO QAM 10/27/18 05/03/19 History atorvastatin 10 mg PO QAM 10/27/18 05/03/19 History doxazosin 2 mg PO QAM 10/27/18 05/03/19 History fluticasone propionate 2 spray INTRANASAL BID 10/27/18 05/03/19 History lisinopril 40 mg PO QAM 10/27/18 05/03/19 History metoprolol succinate 25 mg PO QAM 10/27/18 05/03/19 History mirtazapine 45 mg PO HS 10/27/18 05/03/19 History amiodarone 200 mg PO QAM 11/15/18 05/03/19 History Patient History Medical History (Updated 05/03/19 @ 18:09 by Samuel Henderson DO) 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 Underwent procedure without any complications; monitored overnight and discharged home. 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 11/01/18 = widely patent coronary arteries History of cardiac cath SEPTEMBER 2018 AT [facility] NO STENTS History of cataract surgery (Chronic) BILATERAL History of colonoscopy History of tonsillectomy and adenoidectomy (Chronic) History of total left hip replacement (Chronic) Family History Mother Hypertension Brother FHx: myocardial infarction HALF-BROTHER Social History (Updated 05/03/19 @ 12:31 by Angelica Rendon PA-C) Preferred Language: Frisian Communication Ability: Effective Filling Winder Required: No Beliefs That Will Affect Care: None marital status: Current Living Situation: Spouse Current Living Situation Comment: at home current occupational status: retired Other Information That Helps Us Care for You: No Feels Safe at Home: Yes Safety Concerns: Feels Safe At This Time Smoking Status: Former smoker Tobacco Type: cigarettes ; Number of Years Since Quit: 1 ; Second Hand Exposure: No ; Hx Alcohol Use: Yes Hx Substance Use: No Review of Systems Review of Systems: All systems reviewed & are unremarkable except as noted in HPI & below Physical Exam Physical Exam: Temp Pulse Resp BP Pulse Ox 36.4 C L 56 L 14 147/66 H 95 05/03/19 16:09 05/03/19 16:09 05/03/19 16:09 05/03/19 16:09 05/03/19 16:09 Constitutional: + cachectic Respiratory: normal respiratory effort, lungs clear to auscultation Cardiovascular: Rate/Rhythm: regular rhythm and + bradycardic Heart Sounds: no murmur Vessels: + JVD Extremities: no edema Gastrointestinal (Abdomen): normal bowel sounds, soft, nontender, no hepatosplenomegaly Neurologic: PERRL, EOMI, accommodation nl, no face palsy, no dysarthria Results & Data Vital Signs (Past 12 Hours) Vital Signs Temp Pulse Pulse Resp BP BP Pulse Ox 05/03/19 16:09 36.4 C L 56 L 14 147/66 H 95 05/03/19 16:00 05/03/19 15:19 36.4 C L 50 L 18 146/63 H 95 05/03/19 14:29 53 L 05/03/19 13:30 63 21 142/79 H 91 05/03/19 13:00 54 L 21 140/75 92 05/03/19 12:30 52 L 22 148/70 H 93 05/03/19 12:01 61 24 159/77 H 95 05/03/19 11:40 55 L 17 92 05/03/19 11:31 49 L 14 93 05/03/19 11:30 52 L 15 142/70 H 93 05/03/19 11:20 53 L 15 93 05/03/19 11:10 54 L 15 93 05/03/19 11:01 54 L 16 92 05/03/19 11:00 53 L 18 145/70 H 92 05/03/19 10:50 52 L 16 92 05/03/19 10:40 56 L 18 92 05/03/19 10:30 51 L 16 150/70 H 92 05/03/19 10:00 51 L 20 147/67 H 94 05/03/19 09:30 53 L 20 139/69 92 05/03/19 09:24 94 05/03/19 09:23 94 05/03/19 09:20 36.7 C 62 22 134/88 94 Pulse Ox 05/03/19 16:09 05/03/19 16:00 94 05/03/19 15:19 05/03/19 14:29 05/03/19 13:30 05/03/19 13:00 05/03/19 12:30 05/03/19 12:01 05/03/19 11:40 05/03/19 11:31 05/03/19 11:30 05/03/19 11:20 05/03/19 11:10 05/03/19 11:01 05/03/19 11:00 05/03/19 10:50 05/03/19 10:40 05/03/19 10:30 05/03/19 10:00 05/03/19 09:30 05/03/19 09:24 05/03/19 09:23 05/03/19 09:20 Laboratory Results Cardiac Enzymes 05/03/19 Range/Units 09:40 AST 20 (15-37) U/L Troponin I 0.039 (0-0.045) ng/ml Coagulation 05/03/19 Range/Units 09:40 PT 11.3 (9.0-12.0) Seconds APTT 26.8 (21.0-31.0) Seconds CBC 05/03/19 Range/Units 09:40 WBC 7.69 (4.8-10.8) K/uL RBC 3.68 L (4.7-6.1) M/uL Hgb 12.4 L (14.0-18.0) g/dL Hct 36.7 L (42-52) % Plt Count 174 (130-400) K/uL Neut # (Auto) 5.53 (1.4-6.5) K/uL Lymph # (Auto) 1.17 L (1.2-3.4) K/uL [place] # (Auto) 0.63 H (0.11-0.59) K/uL Eos # (Auto) 0.30 (0-0.5) K/uL Baso # (Auto) 0.05 (0-0.2) K/uL Comprehensive Metabolic Panel 05/03/19 Range/Units 09:40 Sodium 136 (136-145) mmol/L Potassium 4.1 (3.5-5.1) mmol/L Chloride 101 (98-107) mmol/L Carbon Dioxide 29 (21-32) mmol/L BUN 16 (7-18) mg/dl Creatinine 1.18 (0.6-1.4) mg/dl Glucose 82 (70-99) mg/dl Calcium 8.9 (8.5-10.1) mg/dl AST 20 (15-37) U/L ALT 20 (12-78) U/L Alkaline Phosphatase 76 (45-117) U/L Total Protein 7.3 (6.4-8.2) gm/dl Albumin 3.2 L (3.4-5.0) gm/dl Intake and Output 05/03/19 05/03/19 05/03/19 06:59 14:59 22:59 Output Total 700 / 700 Balance -700 / -700 Output: Urine 700 / 700 Other: Weight 58.4 kg Patient Weight 05/04/19 06:59 Weight 58.4 kg Diagnostic Findings EKG performed today 05/03/2019 revealed sinus bradycardia 54 bpm with first- degree AV block, left bundle branch block, QRS duration 160 ms.
[2019-05-03] MEDS: FLUTICASONE PROPIONATE NA SPR 16 GM BTL SCH (21:06)
[2019-05-03] MEDS: MIRTAZAPINE SOLTAB 15 MG PO SCH (21:07)
[2019-05-04 06:03] LABS: Hematocrit (blood only) 35.1 % (42-52); Hemoglobin 11.8 g/dL (14.0-18.0); Mean Corpuscular Hemoglobin 33.4 pg (25-34); Mean Corpuscular Hgb Conc 33.6 g/dL (32-36); Mean Corpuscular Volume 99.4 fL (80-100); Mean Platelet Volume 11.2 fL (7.4-10.4); Platelet Count 178 K/uL (130-400); RDW Coefficient of Variation 14.1 % (11.5-14.5); RDW Standard Deviation 50.9 fL (36.4-46.3); Red Blood Count 3.53 M/uL (4.7-6.1); White Blood Count 7.19 K/uL (4.8-10.8)
[2019-05-04 06:29] LABS: BUN Creatinine Ratio 12.8 (10-20); Calcium 8.7 mg/dl (8.5-10.1); Creatinine Clr Calc Pharmacy 33.7 ml/min; Est GFR (African American) 54.9; Est GFR (Non-African American) 47.4; Potassium 3.7 mmol/L (3.5-5.1)
[2019-05-04] MEDS: DOXAZosin MESYLATE TAB 2 MG TAB PO SCH (08:02)
[2019-05-04] MEDS: AMIODARONE 200 MG TAB PO SCH (08:03)
[2019-05-04] MEDS: FLUTICASONE PROPIONATE NA SPR 16 GM BTL SCH ×2 (08:03→20:07)
[2019-05-04] MEDS: ASPIRIN 81 MG ECTAB PO SCH (08:03)
[2019-05-04] MEDS: ENOXAPARIN INJ 30 MG/0.3 ML SYR SQ SCH (08:04)
[2019-05-04] MEDS: ATORVASTATIN 10 MG TAB PO SCH (08:04)
[2019-05-04] MEDS: lisinopriL 40 MG TAB PO SCH (08:05)
[2019-05-04] MEDS ORDERED: METOPROLOL SUCC 25MG EXT REL TAB PO SCH (09:00)
--- NOTE | 2019-05-04 11:42 | XRay Report ---
XR chest 1V portable HISTORY: Atypical chest pain. COMPARISON: Chest 05/03/2019. FINDINGS: No significant change in the bilateral pleural effusions and bibasilar densities. The mild interstitial pulmonary edema has slightly improved. No pneumothorax. The heart remains stable in size . IMPRESSION: 1. Slight improvement in the mild interstitial pulmonary edema. 2. Small bilateral pleural effusions and bibasilar densities persist. ACT 112: Negative or not required by law. Electronically signed by: Shamir Olmstead M.D. 05/04/2019 11:41 AM
--- NOTE | 2019-05-04 11:46 | Hospitalist Progress Note ---
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 presented with decompensation of acute on chronic combined systolic and diastolic CHF, last EF 30% Cardiology consulted , appreciate input Strict I's and O's Daily weights beta da d/yovani due to bradycardia /ist degree AV block noted in EKG cont tele monitoring l (4) COPD, mild: No acute exacerbation presented with SOB /CONNELLY due to pulmonary congestion /decompensated CHF (5) Dyslipidemia: continue statin (6) Hypertension: Blood pressure stable (7) NSVT (nonsustained ventricular tachycardia): Continue amiodarone (8) LBBB (left bundle branch block): chronic (9) BPH (benign prostatic hyperplasia): continue doxazosin (10) DVT prophylaxis: lovenox SQ 30mg daily Disposition: monitor in PCU Subjective offers no complain , denies of feeling of SOB , chest heaviness no cough no fever or chill Review of Systems Review of Systems: All systems reviewed & are unremarkable except as noted in HPI & below Respiratory: + dyspnea on exertion Gastrointestinal: + problem reported (Poor appetite ) Physical Exam Constitutional: + cachectic Eyes: + anicteric sclerae and PERRL Neck: trachea midline, no thyromegaly Respiratory: normal respiratory effort, lungs clear to auscultation Cardiovascular: Rate/Rhythm: regular rhythm and + bradycardic Heart Sounds: no murmur Vessels: + JVD Extremities: no edema Gastrointestinal (Abdomen): normal bowel sounds, soft, nontender, no hepatosplenomegaly Neurologic: PERRL, EOMI, accommodation nl, no face palsy, no dysarthria Psychiatric: Orientation: alert and oriented x 3 Affect: + flat affect Results & Data Vital Signs (Past 12 Hours) Vital Signs Temp Pulse Pulse Resp BP Pulse Ox 05/04/19 11:01 36.5 C 53 L 17 128/64 93 05/04/19 08:00 36.4 C L 48 L 74 18 143/68 H 97 05/04/19 04:00 36.6 C 56 L 18 128/52 L 94 05/04/19 00:00 36.6 C 56 L 56 L 16 133/66 92 (1) Acute CHF (congestive heart failure) Heart failure type: combined systolic and diastolic Qualified Code(s): I50.41 - Acute combined systolic (congestive) and diastolic (congestive) heart failure
--- NOTE | 2019-05-04 13:55 | Cardiology Progress Note ---
Date of Service May 04, 2019 Assessment & Plan (1) Acute on chronic heart failure with preserved ejection fraction (HFpEF): (2) LBBB (left bundle branch block): Patient admitted with acute on chronic decompensated systolic heart failure. Chest x-ray subjectively improved with low-dose diuretic therapy yesterday. Recommend additional dose of 20 mg IV furosemide today. Add Aldactone 25 mg daily to optimize evidence-based heart failure therapy. With history of nonsustained ventricular tachycardia I am concerned regarding potential for re- current ventricular dysrhythmias with discontinuation of antiarrhythmic therapy. He does not have an ICD in place. Hold Toprol-XL and monitor heart rate on telemetry. Follow fluid balance, daily weight, GFR, and electrolytes. Case discussed with internal medicine. Particularly, my concerns regarding his cachexia and lack of appetite. Subjective Patient seen and examined the bedside. Somewhat of a poor historian. Notes dyspnea on exertion prior to admission. Chest x-ray on admission demonstrates bilateral pleural effusions and pulmonary vascular congestion. Improved today. Sinus bradycardia with left bundle branch on telemetry. No sustained dysrhythmias. Fluid balance negative approximately 200 cc. Review of Systems Review of Systems: All systems reviewed & are unremarkable except as noted in HPI & below Physical Exam Constitutional: + ill appearing and + cachectic Respiratory: Auscultation: + diminished lung sounds and + rales (Fine rales at the left base); no rhonchi and no wheezes Cardiovascular: Rate/Rhythm: regular rate, regular rhythm and + bradycardic Heart Sounds: normal S1 and normal S2; no murmur Vessels: + JVD and radial pulses present Extremities: no edema Gastrointestinal (Abdomen): Inspection/Auscultation: normal bowel sounds; abdomen not distended Percussion/Palpation: abdomen soft; abdomen nontender, no guarding and abdomen not rigid Musculoskeletal: Extremities: + muscle atrophy (Diffuse) Skin: no rashes, warm and dry Neurologic: moves all extremities Psychiatric: Affect: + depressed affect Results & Data Vital Signs (Past 12 Hours) Vital Signs Temp Pulse Pulse Resp BP Pulse Ox 05/04/19 11:01 36.5 C 53 L 17 128/64 93 05/04/19 08:00 36.4 C L 48 L 74 18 143/68 H 97 05/04/19 04:00 36.6 C 56 L 18 128/52 L 94
[2019-05-04] MEDS ORDERED: SPIRONOLACTONE 25 MG TAB PO SCH ×2 (14:00)
[2019-05-04] MEDS ORDERED: FUROSEMIDE 20 MG in SYRINGE 0 ML IV ONE (14:15)
[2019-05-04] MEDS ORDERED: SPIRONOLACTONE 25 MG TAB PO ONE (14:23)
[2019-05-04] MEDS ORDERED: POTASSIUM CHLORIDE 20 MEQ TABCR PO STA (15:27)
[2019-05-04] MEDS: MIRTAZAPINE SOLTAB 15 MG PO SCH (20:07)
--- NOTE | 2019-05-05 05:49 | Electrocardiogram Report ---
Test Reason : Blood Pressure : / mmHG Vent. Rate : 050 BPM Atrial Rate : 050 BPM P-R Int : 198 ms QRS Dur : 168 ms QT Int : 562 ms P-R-T Axes : 076 -50 126 degrees QTc Int : 512 ms Sinus bradycardia Left axis deviation Left bundle branch block Abnormal ECG When compared with ECG of 03-MAY-2019 09:15, No significant change was found Confirmed by Roly Oates ([id number] on 05/05/2019 5:48:55 AM Referred By: REFERRED SELF Confirmed By:Roly Oates
[2019-05-05 07:13] LABS: BUN Creatinine Ratio 15.4 (10-20); Calcium 8.9 mg/dl (8.5-10.1); Creatinine Clr Calc Pharmacy 32.6 ml/min; Est GFR (African American) 60.2; Est GFR (Non-African American) 51.9; Potassium 3.8 mmol/L (3.5-5.1)
[2019-05-05] MEDS: SPIRONOLACTONE 25 MG TAB PO SCH (08:03)
[2019-05-05] MEDS: ATORVASTATIN 10 MG TAB PO SCH (08:04)
[2019-05-05] MEDS: lisinopriL 40 MG TAB PO SCH (08:04)
[2019-05-05] MEDS: DOXAZosin MESYLATE TAB 2 MG TAB PO SCH (08:04)
[2019-05-05] MEDS: ENOXAPARIN INJ 30 MG/0.3 ML SYR SQ SCH (08:05)
[2019-05-05] MEDS: FLUTICASONE PROPIONATE NA SPR 16 GM BTL SCH ×2 (08:05→21:23)
[2019-05-05] MEDS: ASPIRIN 81 MG ECTAB PO SCH (08:05)
[2019-05-05] MEDS: AMIODARONE 200 MG TAB PO SCH (08:05)
--- NOTE | 2019-05-05 11:12 | Hospitalist Progress Note ---
Date of Service May 05, 2019 Assessment & Plan (1) Pleural effusion: (2) Acute CHF (congestive heart failure): acute CHF with diastolic dysfunction : presented with SOB , Chest xray shows : pulmonary congestion with layering bilateral pleural effusion appreciate input from cardiology Given Lasix 20 mg IV x1 dose yesterday Potassium level 3.8, creatinine remains stable at 1.27 Continue on Aldactone 25 mg daily, started by cardiology Severe protein calorie malnutrition BMI 17 Patient reports a very poor appetite," nothing taste good" Has been losing weight consistently for the past few years Appears to be very cachectic Dietary consulted for nutritional supplement Patient will need further work-up for evaluation of underlying malignancy (3) Nonischemic cardiomyopathy: This is an 84-year-old male who has significant past medical history of 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 Cardiology consulted , appreciate input Strict I's and O's Daily weights beta da d/yovani due to bradycardia /ist degree AV block noted in EKG History of nonsustained V. tach, patient is continued with amiodarone cont tele monitoring l (4) COPD, mild: No acute exacerbation presented with SOB /CONNELLY due to pulmonary congestion /decompensated CHF Is present status continues to improve with diuresis (5) Dyslipidemia: continue statin (6) Hypertension: Blood pressure stable (7) NSVT (nonsustained ventricular tachycardia): Continue amiodarone (8) LBBB (left bundle branch block): chronic (9) BPH (benign prostatic hyperplasia): continue doxazosin (10) DVT prophylaxis: lovenox SQ 30mg daily Disposition: monitor in PCU Will need PT OT evaluation prior to discharge secondary to sick severe deconditioning Subjective First no new complaint today, denies of shortness of breath no cough no dyspnea on exertion no orthopnea No fever or chills Review of Systems Respiratory: + dyspnea on exertion Gastrointestinal: + problem reported (Poor appetite ) Physical Exam Constitutional: + cachectic Eyes: + anicteric sclerae and PERRL Neck: trachea midline, no thyromegaly Respiratory: normal respiratory effort, lungs clear to auscultation Cardiovascular: Rate/Rhythm: regular rhythm and + bradycardic Heart Sounds: no murmur Vessels: + JVD Extremities: no edema Gastrointestinal (Abdomen): normal bowel sounds, soft, nontender, no hepatosplenomegaly Neurologic: PERRL, EOMI, accommodation nl, no face palsy, no dysarthria Psychiatric: Orientation: alert and oriented x 3 Affect: + flat affect Results & Data Vital Signs (Past 12 Hours) Vital Signs Temp Pulse Pulse Resp BP Pulse Ox 05/05/19 07:19 36.5 C 58 L 18 149/73 H 93 05/05/19 04:00 36.5 C 58 L 144/68 H 93 05/05/19 00:00 36.6 C 58 L 54 L 16 125/51 L 94 (1) Acute CHF (congestive heart failure) Heart failure type: combined systolic and diastolic Qualified Code(s): I50.41 - Acute combined systolic (congestive) and diastolic (congestive) heart failure
--- NOTE | 2019-05-05 13:03 | Cardiology Progress Note ---
Date of Service May 05, 2019 Assessment & Plan (1) Acute on chronic heart failure with preserved ejection fraction (HFpEF): (2) LBBB (left bundle branch block): Patient admitted with acute on chronic decompensated systolic heart failure. Metoprolol placed on hold and Aldactone added yesterday. Potassium supplementation discontinued. Electrolytes and GFR stable today. Recommend additional 20 mg of IV Lasix today. Follow fluid balance, daily weight, GFR, and electrolytes. Continue telemetry monitoring. Subjective Patient seen and examined at the bedside. More alert today. No dysrhythmias on telemetry. Fluid balance -730 cc. Tolerating diet and medications. Metoprolol placed on hold with continuation of amiodarone yesterday. Review of Systems Review of Systems: All systems reviewed & are unremarkable except as noted in HPI & below Physical Exam Constitutional: + ill appearing and + cachectic Respiratory: Auscultation: + diminished lung sounds and + rales (Fine rales at the left base); no rhonchi and no wheezes Cardiovascular: Rate/Rhythm: regular rate, regular rhythm and + bradycardic Heart Sounds: normal S1 and normal S2; no murmur Vessels: + JVD and radial pulses present Extremities: no edema Gastrointestinal (Abdomen): Inspection/Auscultation: normal bowel sounds; abdomen not distended Percussion/Palpation: abdomen soft; abdomen nontender, no guarding and abdomen not rigid Musculoskeletal: Extremities: + muscle atrophy (Diffuse) Skin: no rashes, warm and dry Neurologic: moves all extremities Psychiatric: Affect: + depressed affect Results & Data Vital Signs (Past 12 Hours) Vital Signs Temp Pulse Resp BP Pulse Ox 05/05/19 11:12 36.5 C 60 20 133/55 L 94 05/05/19 07:19 36.5 C 58 L 18 149/73 H 93 05/05/19 04:00 36.5 C 58 L 144/68 H 93
[2019-05-05] MEDS ORDERED: FUROSEMIDE 20 MG in SYRINGE 0 ML IV ONE (13:15)
[2019-05-05] MEDS: MIRTAZAPINE SOLTAB 15 MG PO SCH (21:23)
--- NOTE | 2019-05-05 21:49 | Electrocardiogram Report ---
Test Reason : Blood Pressure : / mmHG Vent. Rate : 067 BPM Atrial Rate : 067 BPM P-R Int : 208 ms QRS Dur : 176 ms QT Int : 498 ms P-R-T Axes : 085 -40 119 degrees QTc Int : 526 ms Sinus rhythm with occasional Premature ventricular complexes Left axis deviation Left bundle branch block Abnormal ECG When compared with ECG of 04-MAY-2019 06:35, Premature ventricular complexes are now Present Confirmed by Roly Oates ([id number] on 05/05/2019 9:49:36 PM Referred By: REFERRED SELF Confirmed By:Roly Oates
[2019-05-06 06:19] LABS: BUN Creatinine Ratio 17.3 (10-20); Calcium 8.8 mg/dl (8.5-10.1); Creatinine Clr Calc Pharmacy 33.1 ml/min; Est GFR (African American) 61.3; Est GFR (Non-African American) 52.9; Potassium 3.8 mmol/L (3.5-5.1)
[2019-05-06] MEDS: POLYETHYLENE (MIRALAX) 17 GM PACK PO PRN (07:43)
[2019-05-06] MEDS: SPIRONOLACTONE 25 MG TAB PO SCH (07:45)
[2019-05-06] MEDS: AMIODARONE 200 MG TAB PO SCH (07:45)
[2019-05-06] MEDS: DOXAZosin MESYLATE TAB 2 MG TAB PO SCH (07:45)
[2019-05-06] MEDS: ASPIRIN 81 MG ECTAB PO SCH (07:46)
[2019-05-06] MEDS: FLUTICASONE PROPIONATE NA SPR 16 GM BTL SCH ×2 (07:46→20:41)
[2019-05-06] MEDS: ATORVASTATIN 10 MG TAB PO SCH (07:47)
[2019-05-06] MEDS: lisinopriL 40 MG TAB PO SCH (07:47)
[2019-05-06] MEDS: ENOXAPARIN INJ 30 MG/0.3 ML SYR SQ SCH (07:47)
--- NOTE | 2019-05-06 10:12 | Cardiology Progress Note ---
Date of Service May 06, 2019 Assessment & Plan (1) Acute CHF (congestive heart failure): Patient has clinically improved since admission weight down at least 4 kg. No arrhythmias overnight. Plan add oral furosemide continue spironolactone and previous medications Would increase activities/mobility. Consult physical therapy (2) LBBB (left bundle branch block): Patient admitted with acute on chronic decompensated systolic heart failure. Me toprolol placed on hold and Aldactone added yesterday. Potassium supplementation discontinued. Electrolytes and GFR stable today. Recommend additional 20 mg of IV Lasix today. Follow fluid balance, daily weight, GFR, and electrolytes. Continue telemetry monitoring. (3) Pleural effusion: (4) Nonischemic cardiomyopathy: Subjective Patient seen and examined, chart, medications, telemetry reviewed. No acute complaints this morning. Appetite only fair. No worsening dyspnea. No fevers or chills. No arrhythmias overnight Review of Systems Review of Systems: All systems reviewed & are unremarkable except as noted in HPI & below Physical Exam Constitutional: + thin and + cachectic Eyes: PERRL, conjunctivae normal, anicteric sclerae ENMT: external ear and nose normal, oropharynx normal Neck: trachea midline, no thyromegaly Respiratory: Auscultation: + diminished lung sounds (Right base few scattered crackles otherwise) Cardiovascular: Rate/Rhythm: regular rate and regular rhythm Heart Sounds: normal S1 and normal S2; no murmur Vessels: radial pulses present; no JVD and no carotid bruit Extremities: no edema Gastrointestinal (Abdomen): normal bowel sounds, soft, nontender, no hepatosplenomegaly Musculoskeletal: no cyanosis or clubbing, extremities motor strength 5/5 Skin: no rashes, warm and dry Neurologic: PERRL, EOMI, accommodation nl, no face palsy, no dysarthria Psychiatric: A+Ox3, euthymic affect Results & Data Vital Signs (Past 12 Hours) Vital Signs Temp Pulse Pulse Resp BP Pulse Ox 05/06/19 08:00 65 05/06/19 07:40 64 05/06/19 07:10 36.8 C 59 L 18 127/59 L 92 05/06/19 04:00 36.6 C 69 17 135/60 94 05/06/19 00:00 65 05/05/19 23:30 36.6 C 69 16 135/61 95 Laboratory Results Laboratory Results - last 24 hr 05/06/19 05:08 Sodium 134 L Potassium 3.8 Chloride 100 Carbon Dioxide 30 Anion Gap 4.0 BUN 22 H Creatinine 1.25 Est Cr Clr Drug Dosing 33.1 Est GFR ( Amer) 61.3 Est GFR (Non-Af Amer) 52.9 BUN/Creatinine Ratio 17.3 Glucose 90 Calcium 8.8 (1) Acute CHF (congestive heart failure) Heart failure type: combined systolic and diastolic Qualified Code(s): I50.41 - Acute combined systolic (congestive) and diastolic (congestive) heart failure
[2019-05-06] MEDS: FUROSEMIDE 20 MG TAB PO SCH (11:30)
--- NOTE | 2019-05-06 18:45 | Hospitalist Progress Note ---
Date of Service May 06, 2019 Assessment & Plan (1) Pleural effusion: (2) Acute CHF (congestive heart failure): acute CHF with diastolic dysfunction : presented with SOB , Chest xray shows : pulmonary congestion with layering bilateral pleural effusion appreciate input from cardiology Given Lasix 20 mg IV x1 dose yesterday Potassium level 3.8, creatinine remains stable at 1.27 Continue on Aldactone 25 mg daily, started by cardiology CKD stage III Renal function at approximate baseline, continue to monitor BMP Severe protein calorie malnutrition BMI 17 Patient reports a very poor appetite," nothing taste good" Has been losing weight consistently for the past few years Appears to be very cachectic Dietary consulted for nutritional supplement Patient will need further work-up for evaluation of underlying malignancy (3) Nonischemic cardiomyopathy: This is an 84-year-old male who has significant past medical history of 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 Cardiology consulted , appreciate input Strict I's and O's Daily weights beta da d/yovani due to bradycardia /ist degree AV block noted in EKG History of nonsustained V. tach, patient is continued with amiodarone cont tele monitoring l (4) COPD, mild: No acute exacerbation presented with SOB /CONNELLY due to pulmonary congestion /decompensated CHF Is present status continues to improve with diuresis (5) Dyslipidemia: continue statin (6) Hypertension: Blood pressure stable (7) NSVT (nonsustained ventricular tachycardia): Continue amiodarone (8) LBBB (left bundle branch block): chronic (9) BPH (benign prostatic hyperplasia): continue doxazosin (10) DVT prophylaxis: lovenox SQ 30mg daily Disposition: monitor in PCU Will need PT OT evaluation prior to discharge secondary to sick severe deconditioning Subjective Still have shortness of breath, denies of chest heaviness, cough is improved no fever or chills Review of Systems Respiratory: + dyspnea on exertion Gastrointestinal: + problem reported (Poor appetite ) Physical Exam Constitutional: + cachectic Eyes: + anicteric sclerae and PERRL Neck: trachea midline, no thyromegaly Respiratory: normal respiratory effort, lungs clear to auscultation Cardiovascular: Rate/Rhythm: regular rhythm and + bradycardic Heart Sounds: no murmur Vessels: + JVD Extremities: no edema Gastrointestinal (Abdomen): normal bowel sounds, soft, nontender, no hepatosplenomegaly Neurologic: PERRL, EOMI, accommodation nl, no face palsy, no dysarthria Psychiatric: Orientation: alert and oriented x 3 Affect: + flat affect Results & Data Vital Signs (Past 12 Hours) Vital Signs Temp Pulse Pulse Resp BP Pulse Ox 05/06/19 15:27 63 05/06/19 15:20 36.7 C 61 16 116/48 L 95 05/06/19 11:52 36.5 C 61 18 112/50 L 95 05/06/19 08:00 65 05/06/19 07:40 64 05/06/19 07:10 36.8 C 59 L 18 127/59 L 92 (1) Acute CHF (congestive heart failure) Heart failure type: combined systolic and diastolic Qualified Code(s): I50.41 - Acute combined systolic (congestive) and diastolic (congestive) heart failure
[2019-05-06] MEDS: MIRTAZAPINE SOLTAB 15 MG PO SCH (20:41)
[2019-05-07 06:04] LABS: BUN Creatinine Ratio 19.5 (10-20); Calcium 8.7 mg/dl (8.5-10.1); Creatinine Clr Calc Pharmacy 36.1 ml/min; Est GFR (African American) 67.8; Est GFR (Non-African American) 58.5; Potassium 3.9 mmol/L (3.5-5.1)
[2019-05-07] MEDS: AMIODARONE 200 MG TAB PO SCH (07:53)
[2019-05-07] MEDS: lisinopriL 40 MG TAB PO SCH (07:53)
[2019-05-07] MEDS: FLUTICASONE PROPIONATE NA SPR 16 GM BTL SCH ×2 (07:53→20:41)
[2019-05-07] MEDS: ASPIRIN 81 MG ECTAB PO SCH (07:54)
[2019-05-07] MEDS: DOXAZosin MESYLATE TAB 2 MG TAB PO SCH (07:54)
[2019-05-07] MEDS: SPIRONOLACTONE 25 MG TAB PO SCH (07:54)
[2019-05-07] MEDS: ATORVASTATIN 10 MG TAB PO SCH (07:55)
[2019-05-07] MEDS: ENOXAPARIN INJ 30 MG/0.3 ML SYR SQ SCH (07:55)
[2019-05-07] MEDS: FUROSEMIDE 20 MG TAB PO SCH (07:55)
[2019-05-07] MEDS: POLYETHYLENE (MIRALAX) 17 GM PACK PO PRN (07:59)
--- NOTE | 2019-05-07 10:40 | Cardiology Progress Note ---
Date of Service May 07, 2019 Assessment & Plan (1) Acute CHF (congestive heart failure): Patient has clinically improved since admission weight down at least 4 kg. No arrhythmias overnight. Plan add oral furosemide continue spironolactone and previous medications Would increase activities/mobility. Consult physical therapy Encourage increased nutrition As above tolerating oral furosemide and spironolactone (2) LBBB (left bundle branch block): Continue telemetry monitoring while in hospital. Past history of ventricular tachycardia on chronic amiodarone therapy (3) Pleural effusion: (4) Nonischemic cardiomyopathy: Subjective Patient seen and examined, chart, medications, telemetry reviewed. No chest pains or difficulties overnight. Ambulatory in room. Appetite fair but is using supplements. No arrhythmias on telemetry Physical Exam Constitutional: + thin and + cachectic Eyes: PERRL, conjunctivae normal, anicteric sclerae ENMT: external ear and nose normal, oropharynx normal Neck: trachea midline, no thyromegaly Respiratory: Auscultation: + diminished lung sounds (Right base few scattered crackles otherwise) Cardiovascular: Rate/Rhythm: regular rate and regular rhythm Heart Sounds: normal S1 and normal S2; no murmur Palpation: normal PMI Vessels: radial pulses present; no JVD and no carotid bruit Extremities: no edema Gastrointestinal (Abdomen): normal bowel sounds, soft, nontender, no hepatosplenomegaly Musculoskeletal: no cyanosis or clubbing, extremities motor strength 5/5 Skin: no rashes, warm and dry Neurologic: PERRL, EOMI, accommodation nl, no face palsy, no dysarthria Psychiatric: A+Ox3, euthymic affect Results & Data Vital Signs (Past 12 Hours) Vital Signs Temp Pulse Pulse Resp BP Pulse Ox 05/07/19 07:26 36.5 C 62 18 135/60 93 05/07/19 03:39 36.9 C 60 16 137/62 93 05/07/19 03:25 36.9 C 74 16 169/55 H 93 05/07/19 00:00 77 05/06/19 23:36 36.5 C 60 16 140/66 94 Laboratory Results Laboratory Results - last 24 hr 05/07/19 05:26 Sodium 132 L Potassium 3.9 Chloride 98 Carbon Dioxide 31 Anion Gap 3.0 BUN 22 H Creatinine 1.15 Est Cr Clr Drug Dosing 36.1 Est GFR ( Amer) 67.8 Est GFR (Non-Af Amer) 58.5 BUN/Creatinine Ratio 19.5 Glucose 85 Calcium 8.7 (1) Acute CHF (congestive heart failure) Heart failure type: combined systolic and diastolic Qualified Code(s): I50.41 - Acute combined systolic (congestive) and diastolic (congestive) heart failure
--- NOTE | 2019-05-07 15:23 | Hospitalist Progress Note ---
Date of Service May 07, 2019 Assessment & Plan (1) Pleural effusion: (2) Acute CHF (congestive heart failure): acute CHF with diastolic dysfunction : presented with SOB , Chest xray shows : pulmonary congestion with layering bilateral pleural effusion appreciate input from cardiology Lasix dose changed to 20 mg daily, Function has been stable Continue on Aldactone 25 mg daily, started by cardiology CKD stage III Renal function at approximate baseline, continue to monitor BMP Severe protein calorie malnutrition BMI 17 Patient reports a very poor appetite," nothing taste good" Has been losing weight consistently for the past few years Appears to be very cachectic Dietary consulted for nutritional supplement Patient will need further work-up for evaluation of underlying malignancy (3) Nonischemic cardiomyopathy: This is an 84-year-old male who has significant past medical history of 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 Cardiology consulted , appreciate input Strict I's and O's Daily weights beta da /Toprol-XL 25 mg daily discontinued due to bradycardia /ist degree AV block noted in EKG History of nonsustained V. tach, patient is continued with amiodarone Stable to be transferred to medical telemetry (4) COPD, mild: No acute exacerbation presented with SOB /CONNELLY due to pulmonary congestion /decompensated CHF Is present status continues to improve with diuresis (5) Dyslipidemia: continue statin (6) Hypertension: Blood pressure stable (7) NSVT (nonsustained ventricular tachycardia): Continue amiodarone (8) LBBB (left bundle branch block): chronic (9) BPH (benign prostatic hyperplasia): continue doxazosin (10) DVT prophylaxis: lovenox SQ 30mg daily Disposition: PT OT evaluation appreciated Documents discharged home with home PT home health Plan to discharge home tomorrow Subjective Shortness of breath/breathing status remains stable No cough, no fever or chills Review of Systems Respiratory: + dyspnea on exertion Gastrointestinal: + problem reported (Poor appetite ) Physical Exam Constitutional: + cachectic Eyes: + anicteric sclerae and PERRL Neck: trachea midline, no thyromegaly Respiratory: normal respiratory effort, lungs clear to auscultation Cardiovascular: Rate/Rhythm: regular rhythm and + bradycardic Heart Sounds: no murmur Vessels: + JVD Extremities: no edema Gastrointestinal (Abdomen): normal bowel sounds, soft, nontender, no hepatosplenomegaly Neurologic: PERRL, EOMI, accommodation nl, no face palsy, no dysarthria Psychiatric: Orientation: alert and oriented x 3 Affect: + flat affect Results & Data Vital Signs (Past 12 Hours) Vital Signs Temp Pulse Resp BP Pulse Ox 05/07/19 11:17 36.5 C 67 18 124/58 L 95 05/07/19 07:26 36.5 C 62 18 135/60 93 05/07/19 03:39 36.9 C 60 16 137/62 93 05/07/19 03:25 36.9 C 74 16 169/55 H 93 (1) Acute CHF (congestive heart failure) Heart failure type: combined systolic and diastolic Qualified Code(s): I50.41 - Acute combined systolic (congestive) and diastolic (congestive) heart failure
--- NOTE | 2019-05-07 19:04 | Hospitalist Progress Note ---
Date of Service May 07, 2019 Subjective Attending addendum: Patient shows evidence of severe cachexia, with severe protein calorie malnutrition Reports of poor appetite, nothing taste good Discussed with patient's , patient has been slowly losing weight in past 1 year, more profound in past for 5 months Drinks boost twice daily, hardly eats any of his meals She does not recall if patient had any recent colonoscopy Order for stool for Hemoccult CT abdomen pelvis, and CT chest for evaluation of underlying malignancy Ordered for tumor markers, CEA, AFP, CA [address] abdomen pelvis done on 01/2019 was negative for any pathology Nutrition consulted, appreciate input Michelle Tyson MD Results & Data Vital Signs (Past 12 Hours) Vital Signs Temp Pulse Pulse Pulse Resp BP Pulse Ox 05/07/19 17:50 36.3 C L 73 18 145/57 H 96 05/07/19 17:17 64 05/07/19 15:24 36.6 C 71 19 123/53 L 95 05/07/19 11:17 36.5 C 67 18 124/58 L 95 05/07/19 07:26 36.5 C 62 18 135/60 93
[2019-05-07] MEDS ORDERED: IOVERSOL 100ml IV PRN (19:47)
--- NOTE | 2019-05-07 20:10 | CT Scan Report ---
CT SCAN OF THE CHEST, ABDOMEN, AND PELVIS WITH IV CONTRAST CLINICAL HISTORY: Weight loss. COMPARISON STUDY: Chest CT scans dated 10/27/2018 and 11/09/2017. Abdominal CT dated 02/03/2019. TECHNIQUE: Following the IV administration of 94 of Optiray 320, CT scan of the chest, abdomen, and p krish was performed from the thoracic inlet to the proximal femora. Images are reviewed in the axial, sagittal, and coronal planes. IV contrast was administered without complication. A dose lowering te chnique was utilized adhering to the principles of ALARA. CT DOSE: 462.97 mGy.cm FINDINGS: CHEST: Thyroid: Imaged portions of the thyroid gland are normal in size and attenuation. Thoracic aorta: There is atherosclerotic calcification of the thoracic aorta, which is normal in qi annette and demonstrates bovine variant arch anatomy. No dissection is seen. Pulmonary vasculature: The main pulmonary arteries are dilated suggesting pulmonary artery hypertensi on. There are no filling defects identified in the central pulmonary vessels to indicate pulmonary em bolus. Note that this examination was not protocoled for evaluation of the pulmonary arteries. Heart: The heart is enlarged and there is a small pericardial effusion. The coronary arteries are den sely calcified. Lungs and pleural spaces: Emphysematous change is similar to previous. There are small pleural effusi ons with bibasilar atelectasis. No airspace consolidation is seen typical for pneumonia. 8 mm calcifi cation containing nodule in the left upper lobe on image #103 and a 5 monitor calcification containin g nodule in the right lower lobe on image #152 are unchanged dating back to 11/09/2017. No new pulmona ry nodule is identified. The trachea and central airways are clear. Mild diffuse peribronchial thicke bella is noted. Mediastinum: There are numerous mildly enlarged mediastinal lymph nodes which are similar to previous . An AP window node measures up to 1.4 cm short axis. Pretracheal nodes measure up to 1.2 cm in short axis. Laisha: Clear. Axillae: There is no axillary lymphadenopathy. Bony thorax: The skeletal structures are osteopenic. No lytic or blastic lesions are identified. 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 ABDOMEN AND PELVIS: Liver: The contrast-enhanced liver is normal in size, contour, and attenuation. There is no intra- or extrahepatic biliary ductal dilatation. The hepatic veins and portal veins are patent. Gallbladder: Unremarkable. Spleen: Normal in size and attenuation. Pancreas: Moderately atrophic and grossly unremarkable. Adrenal glands: Nodularity of the left adrenal gland is unchanged. The right adrenal gland is normal in appearance. Kidneys: The contrast enhanced kidneys demonstrate cortical atrophy and are without hydronephrosis. T he kidneys enhance symmetrically. Abdominal vasculature: The abdominal aorta is normal in course and caliber noting advanced atheroscle rotic calcification. Bowel: There is moderate constipation. No bowel obstruction is seen. The appendix is not visualized. Surgical clip is seen in the right lower quadrant. Peritoneum: There is no intraperitoneal free air or abdominal ascites. Lymphadenopathy: None. Pelvic viscera: Evaluation of the pelvis is degraded by streak artifact from a left hip arthroplasty. The prostate gland is enlarged and heterogeneous. The bladder is distended. The bladder wall is thic kened and trabeculated indicating chronic outlet obstruction. There is a fat and bowel containing rig ht inguinal hernia. Skeletal structures: The skeletal structures are osteopenic. No lytic or blastic lesions are seen. Th ere is [id number] lumbosacral spondylosis. A left hip arthroplasty is in place. IMPRESSION: 1. Cardiomegaly and emphysema. 2. There are small pleural effusions with associated atelectasis. 3. Low suspicion calcification containing subcentimeter pulmonary nodules in the left lung are unchan ged dating back to 11/09/2017. 4. There are no acute infectious or inflammatory findings in the abdomen or pelvis. 5. Moderate constipation. 6. Mildly enlarged mediastinal lymph nodes are nonspecific and unchanged from prior studies. 7. Fat and bowel containing right inguinal hernia. 8. Additional findings as above. ACT 112: Negative or not required by law. Electronically signed by: Dustin Rosales M.D. 05/07/2019 8:08 PM
--- NOTE | 2019-05-07 20:20 | Hospitalist Progress Note ---
Date of Service May 07, 2019 Subjective ATTENDING NOTE: CT abdomen/pelvis and chest report reviewed : no evidence of any pathology or malignancy report updated to on the phone Michelle Tyson MD Results & Data Vital Signs (Past 12 Hours) Vital Signs Temp Pulse Pulse Pulse Resp BP Pulse Ox 05/07/19 18:00 68 05/07/19 17:50 36.3 C L 73 18 145/57 H 96 05/07/19 17:17 64 05/07/19 15:24 36.6 C 71 19 123/53 L 95 05/07/19 11:17 36.5 C 67 18 124/58 L 95
[2019-05-07] MEDS: MIRTAZAPINE SOLTAB 15 MG PO SCH (20:41)
[2019-05-08 08:37] LABS: Calcium 9.2 mg/dl (8.5-10.1); Creatinine Clr Calc Pharmacy 33.9 ml/min; Est GFR (African American) 62.5; Potassium 4.2 mmol/L (3.5-5.1)
[2019-05-08] MEDS: ASPIRIN 81 MG ECTAB PO SCH (08:43)
[2019-05-08] MEDS: SPIRONOLACTONE 25 MG TAB PO SCH (08:43)
[2019-05-08] MEDS: AMIODARONE 200 MG TAB PO SCH (08:43)
[2019-05-08] MEDS: ATORVASTATIN 10 MG TAB PO SCH (08:44)
[2019-05-08] MEDS: FLUTICASONE PROPIONATE NA SPR 16 GM BTL SCH (08:44)
[2019-05-08] MEDS: FUROSEMIDE 20 MG TAB PO SCH (08:44)
[2019-05-08] MEDS: DOXAZosin MESYLATE TAB 2 MG TAB PO SCH (08:44)
[2019-05-08] MEDS: ENOXAPARIN INJ 30 MG/0.3 ML SYR SQ SCH (08:44)
[2019-05-08] MEDS: lisinopriL 40 MG TAB PO SCH (08:44)
--- NOTE | 2019-05-08 10:10 | Cardiology Progress Note ---
Date of Service May 08, 2019 Assessment & Plan (1) Acute CHF (congestive heart failure): Patient has clinically improved since admission weight down at least 4 kg. No arrhythmias overnight. Plan add oral furosemide continue spironolactone and previous medications Would increase activities/mobility. Consult physical therapy Encourage increased nutrition As above tolerating oral furosemide and spironolactone Would recommend close clinical follow-up and repeat BMP post hospital discharge given recent addition of diuretics including spironolactone No other changes made (2) LBBB (left bundle branch block): Continue telemetry monitoring while in hospital. Past history of ventricular tachycardia on chronic amiodarone therapy Amiodarone may contribute to patient's anorexia encourage better p.o. intake (3) Pleural effusion: (4) Nonischemic cardiomyopathy: Subjective Patient seen and examined, chart, medications, telemetry reviewed. No acute complaints. No arrhythmias overnight Physical Exam Constitutional: + thin and + cachectic Eyes: PERRL, conjunctivae normal, anicteric sclerae ENMT: external ear and nose normal, oropharynx normal Neck: trachea midline, no thyromegaly Respiratory: Auscultation: + diminished lung sounds (Right base few scattered crackles otherwise) Cardiovascular: Rate/Rhythm: regular rate and regular rhythm Heart Sounds: normal S1 and normal S2; no murmur Palpation: normal PMI Vessels: radial pulses present; no JVD and no carotid bruit Extremities: no edema Gastrointestinal (Abdomen): normal bowel sounds, soft, nontender, no hepatosplenomegaly Musculoskeletal: no cyanosis or clubbing, extremities motor strength 5/5 Skin: no rashes, warm and dry Neurologic: PERRL, EOMI, accommodation nl, no face palsy, no dysarthria Psychiatric: A+Ox3, euthymic affect Results & Data Vital Signs (Past 12 Hours) Vital Signs Temp Pulse Pulse Resp BP Pulse Ox 05/08/19 07:47 36.7 C 66 18 128/61 93 05/08/19 04:20 36.7 C 60 18 131/60 95 05/08/19 00:04 74 05/07/19 23:11 36.6 C 72 18 158/68 H 94 Laboratory Results Laboratory Results - last 24 hr 05/08/19 07:48 Sodium 130 L Potassium 4.2 Chloride 96 L Carbon Dioxide 30 Anion Gap 4.0 BUN 27 H Creatinine 1.23 Est Cr Clr Drug Dosing 33.9 Est GFR ( Amer) 62.5 Est GFR (Non-Af Amer) 54.0 BUN/Creatinine Ratio 22.0 H Glucose 87 Calcium 9.2 (1) Acute CHF (congestive heart failure) Heart failure type: combined systolic and diastolic Qualified Code(s): I50.41 - Acute combined systolic (congestive) and diastolic (congestive) heart failure
--- NOTE | 2019-05-08 11:21 | Discharge Summary ---
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 Over the past few days he has been waking up in the melanite secondary to significant shortness of breath. Upon sitting up and standing his symptoms do improve. He further complains of dyspnea on exertion, PND, and chronic poor appetite. He states his weight has been stable at 118 pounds. He denies any lower extremity edema. He denies any other recent illness, fever, chills, sweats, lightheadedness, dizziness, syncope, chest pain, palpitations, hemoptysis, nausea, vomiting, abdominal pain, dysuria, increased urgency or frequency with urination. He states his bowels have been moving, "with encouragement." He has been using [id number] probiotic and stool softener. He does not monitor his fluid intake. Of significance patient has had multiple recent confinements. Initially biventricular pacemaker/AICD placed 11/21/[address] Zamorano. 01/11- hospitalized [facility] secondary to suspected pacemaker infection, later transferred to [place] which she had pacer/AICD removed on 01/14 and treated with antibiotics, culture grew Pseudomonas. Hospitalized 02/04 to 02/07/2019 secondary to hospital-acquired pneumonia. Hospitalized 02/10 to 02/11 secondary to acute on chronic systolic CHF treated with diuresis. Admission Exam Per Admitting Provider Constitutional: Thin, cachectic, elderly male, vitals as above, NAD, sitting up in bed, pleasant, conversing easily Head: Normocephalic, Atraumatic, bilateral temporal wasting Eyes: PERRL, conjunctivae normal, anicteric sclerae ENMT: external ear and nose normal, oropharynx normal Neck: trachea midline, no thyromegaly normal visual inspection Respiratory: normal respiratory effort, lungs clear to auscultation with bibas ilar crackles, expiratory wheeze cleared with coughing, minimal rhonchi, no rales. Normal insp/exp effort, no accessory muscle use Cardiovascular: RRR, no murmur, normal S1-S2, no S3-S4 no edema Vessels: no JVD or carotid bruit Chest: normal inspection of chest Abdomen: normal bowel sounds, soft, nontender, no hepatosplenomegaly Musculoskeletal: no cyanosis or clubbing, extremities motor strength 5/5 Skin: no rashes, warm and dry normal turgor Neurologic: PERRL, EOMI, accommodation nl, no face palsy, no dysarthria CN's II-XI intact bilaterally and moves all extremities Psychiatric: A+Ox3, euthymic affect Lymphatic: no cervical or axillary lymphadenopathy : deferred Principal Diagnosis Acute on chronic CHF (systolic and diastolic), nonischemic cardiomyopathy, severe protein calorie malnutrition Discharge Exam Constitutional: Elderly male, + cachectic, sitting up in bed, in no acute distress Eyes: + anicteric sclerae and PERRL, EOMI Neck: trachea midline, no thyromegaly Respiratory: normal respiratory effort, lungs clear to auscultation Cardiovascular: Rate/Rhythm: regular rhythm, Heart Sounds: no murmur Extremities: no edema Gastrointestinal (Abdomen): normal bowel sounds, soft, nontender, nondistended, no guarding Neurologic: PERRL, EOMI, accommodation nl, no face palsy, no dysarthria, speech fluent, moves all extremities spontaneously Psychiatric: Orientation: alert and oriented x 3 Affect: + flat affect, moves all extremities spontaneously Discharge Data Allergies Allergy/AdvReac Type Severity Reaction Status Date / Time No Known Allergies Allergy Unknown Verified 05/03/19 10:38 Consultations 05/03/19 11:01 ED Decision to Admit Stat 05/03/19 14:29 Consult Cardiology Stat Consult Case Management - Discharge Planning Routine Ordered Studies 05/07/19 18:59 CT abd pelvis IV con only Routine CT chest w con Routine IMPRESSION: 1. Cardiomegaly and emphysema. 2. There are small pleural effusions with associated atelectasis. 3. Low suspicion calcification containing subcentimeter pulmonary nodules in the left lung are unchanged dating back to 11/09/2017. 4. There are no acute infectious or inflammatory findings in the abdomen or pelvis. 5. Moderate constipation. 6. Mildly enlarged mediastinal lymph nodes are nonspecific and unchanged from prior studies. 7. Fat and bowel containing right inguinal hernia. 8. Additional findings in detail report. Hospital Course (1) Pleural effusion: (2) Acute CHF (congestive heart failure): acute CHF with diastolic dysfunction : presented with SOB , Chest xray shows : pulmonary congestion with layering bilateral pleural effusion appreciate input from cardiology Lasix dose changed to 20 mg daily, Function has been stable Continue on Aldactone 25 mg daily, started by cardiology Recommend BMP as outpatient CKD stage III Renal function at approximate baseline, continue to monitor BMP Severe protein calorie malnutrition BMI 17 Patient reports a very poor appetite," nothing taste good" Has been losing weight consistently for the past few years Appears to be very cachectic Dietary consulted for nutritional supplement Patient will need further work-up for evaluation of underlying malignancy CT abdomen chest, obtained yesterday (05/07), by Dr. Tyson, please see full report, impression above. Enlarged lymph nodes and calcified lung nodules. However no signs of GI malignancy. 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 Cardiology consulted , appreciate input Strict I's and O's Daily weights beta da /Toprol-XL 25 mg daily discontinued due to bradycardia /ist degree AV block noted in EKG History of nonsustained V. tach, patient is continued with amiodarone (4) COPD, mild: No acute exacerbation presented with SOB /CONNELLY due to pulmonary congestion /decompensated CHF Is present status continues to improve with diuresis (5) Dyslipidemia: continue statin (6) Hypertension: Blood pressure stable (7) NSVT (nonsustained ventricular tachycardia): Continue amiodarone (8) LBBB (left bundle branch block): chronic (9) BPH (benign prostatic hyperplasia): continue doxazosin Total Time Total Time Spent Total Time Spent (In Minutes): 35 Total Time Includes: Examination of the Patient, Discharge Planning, Medication Reconciliation and Communication With Other Providers Discharge Plan Discharge Items Patient Disposition: Home - Home Health Services Reason For Visit: CHF Discharge Diagnosis: Acute exacerbation of congestive heart failure Activity: Resume your previous activity Activity Comment: as tolerated, pace yourself, ask for help as needed Non-emergency contact: Primary Care Provider and Manager Telemetry Call non-emergency contact if: you have any medication questions and your symptoms worsen Follow-up/Referrals: Taylor Lopez, [Primary Care Provider] - 05/13/19 12:45 pm Diet: Low Sodium (2gm) Fluids: 1800ml (7 cups) Addtl Attending Provider Instructions: Make sure to follow-up with your primary care provider on May 13. At this time you will need blood work done, to check your electrolytes. We also recommend that at this time scanning coordinator is consulted for protein calorie malnutrition Make sure to take new medications, furosemide/Lasix and spironolactone daily. Make sure to weigh yourself daily and keep a record of your weights. Make sure to bring the log of your weights to your primary care provider to your upcoming appointment. Make sure to have low-sodium diet and fluid restricted diet. Make sure to follow the instructions below in detail: Call your Primary Care doctor if any of the following symptoms or problems start or get worse: * Shortness of breath or difficulty breathing * Wake up at night short of breath * Chest pain * Cough * Swelling of your hands, feet, or legs * More fatigued or tired with your normal activity * Palpitations - sudden fast heart beats WEIGHT * Weigh yourself every morning after using the bathroom. * Use the same scale. * Wear the same amount of clothing. * Write your weight down on a chart. * Call your Primary Care doctor if you gain more than 2-3 pounds in 1-2 days. MEDICATIONS * Use this discharge instruction sheet for medication instructions. * Take your medications at the time your doctor ordered. * Do not skip a dose of your medicines. * If you miss a dose of medicine, take it as soon as possible, but DO NOT DOUBLE A DOSE. * Read your medicine information when you get home. * Know all of the side effects of your medicine. If in doubt, ask your pharmacist * Call your Primary Care doctor's office if you have any side effects. * Be sure all of your doctors know what medicine and herbs you take (including cold, flu, and herbal medicine). Take the following with you to your follow-up doctor appointments: * Weight Chart * Medication List * List of questions Do not drink excessive alcohol, beer or wine. Pending Studies at Discharge: No Stand-Alone Forms: My [facility], Smoking Cessation Medications and DC Order Prescriptions: New spironolactone 25 mg Tablet 25 mg PO QAM 30 Days Qty: 30 RF: 3 furosemide 20 mg Tablet 20 mg PO QAM 30 Days Qty: 30 RF: 3 Continued atorvastatin 10 mg tablet 10 mg PO QAM RF: 0 aspirin 81 mg Tablet,Delayed Release (Dr/Ec) 81 mg PO QAM RF: 0 mirtazapine 45 mg tablet 45 mg PO HS RF: 0 lisinopril 40 mg tablet 40 mg PO QAM RF: 0 fluticasone propionate 50 mcg/actuation spray,suspension 2 spray intranasal BID RF: 0 doxazosin 2 mg tablet 2 mg PO QAM RF: 0 amiodarone 200 mg tablet 200 mg PO QAM RF: 0 Discontinued metoprolol succinate 25 mg tablet extended release 24 hr 25 mg PO QAM RF: 0 Discharge Orders: Discharge Order (Routine); Ordered 05/08/19 Ordered By: Mukul Caceres Admission Data Admit Date/Time: 05/03/19 11:37 Attending Provider: Mukul Caceres Admit Provider: Po Cuellar Primary Care Provider: Taylor Lopez Other Providers: Po Cuellar ; Samuel Henderson ; Michelle Tyson ; [facility]
== END 2019-05-08 12:58 | disposition home health service (06) | DRG 291 ==
LOC: ED 09:10 → 2E 11:37 → SUATTDRO 11:37 → 2E 13:48 → 2N 05-07 17:50

== ENCOUNTER 2019-05-17 13:16 | Inpatient (IN) ==
[2019-05-17] MEDS ORDERED: ONDANSETRON INJ 2 MG/ML 2 ML VIAL IV STA (13:45)
[2019-05-17] MEDS ORDERED: SODIUM CHLORIDE 0.9% 500 ML IV SCH (13:45)
[2019-05-17 14:11] LABS: Basophils # (auto) 0.03 K/uL (0-0.2); Basophils % (auto) 0.3 %; Eosinophils # (auto) 0.03 K/uL (0-0.5); Eosinophils % (auto) 0.3 %; Hematocrit (blood only) 36.4 % (42-52); Hemoglobin 12.4 g/dL (14.0-18.0); Immature Granulocytes # (auto) 0.03 K/uL (0.00-0.02); Immature Granulocytes % (auto) 0.3 %; Lymphocytes # (auto) 0.71 K/uL (1.2-3.4); Lymphocytes % (auto) 7.5 %; Mean Corpuscular Hemoglobin 33.8 pg (25-34); Mean Corpuscular Hgb Conc 34.1 g/dL (32-36); Mean Corpuscular Volume 99.2 fL (80-100); Mean Platelet Volume 9.9 fL (7.4-10.4); Monocytes # (auto) 0.55 K/uL (0.11-0.59); Monocytes % (auto) 5.8 %; Neutrophils # (auto) 8.07 K/uL (1.4-6.5); Neutrophils % (auto) 85.8 %; Platelet Count 251 K/uL (130-400); RDW Coefficient of Variation 12.9 % (11.5-14.5); RDW Standard Deviation 47.3 fL (36.4-46.3); Red Blood Count 3.67 M/uL (4.7-6.1); White Blood Count 9.42 K/uL (4.8-10.8)
[2019-05-17 14:30] LABS: BUN Creatinine Ratio 18.3 (10-20); Calcium 9.2 mg/dl (8.5-10.1); Creatinine Clr Calc Pharmacy 24.5 ml/min; Est GFR (African American) 48.4; Est GFR (Non-African American) 41.8; Potassium 4.9 mmol/L (3.5-5.1)
[2019-05-17 14:34] LABS: Troponin I 0.029 ng/ml (0-0.045)
[2019-05-17 14:41] LABS: Acetaminophen < 2 ug/ml (10-30); Salicylate < 1.7 mg/dl (2.8-20)
--- NOTE | 2019-05-17 14:54 | CT Scan Report ---
CT head/brain wo con CLINICAL HISTORY: 84 years-old Male presenting with fall after smoking marijuana. TECHNIQUE: Multidetector CT imaging of the head was performed without the use of intravenous contrast . IV contrast: None. One or more dose lowering techniques were used consistent with the principles of ALARA (as low as reasonably achievable), including automatic exposure control, mA or kV adjustment t o individual patient size, and/or use of iterative reconstruction. COMPARISON: None. CT DOSE (mGy.cm): The estimated cumulative dose is 614.27 mGy.cm. FINDINGS: Vault Custodian topogram: Unremarkable. Ventricles and sulci normal in size. No hemorrhage. Periventricular and subcortical white matter hypo attenuation, nonspecific but likely indicative of chronic small vessel ischemic change. Old lacunar i nfarct in the left thalamus. No acute territorial infarct. No mass effect or midline shift. No extra- axial fluid collection. Air-fluid level in the left maxillary sinus with sclerosis of the sinus potts . Fluid in the left mastoid air cells. Mild mucosal thickening and sclerosis of the left sphenoid sin us. Calvarium intact. IMPRESSION: 1. Chronic small vessel ischemic change and old lacunar infarct in the left thalamus. No acute intra cranial abnormality. 2. Chronic sinusitis of the left maxillary and sphenoid sinuses. ACT 112: Negative or not required by law. Electronically signed by: Hemant Ho M.D. 05/17/2019 2:52 PM
--- NOTE | 2019-05-17 15:20 | XRay Report ---
SINGLE VIEW PELVIS CLINICAL HISTORY: Fall. FINDINGS: 2 AP supine views of the hips and bony pelvis are obtained. Correlation is made with pelvic CT dated 05/07/2019. The skeletal structures are osteopenic. There is no radiographic evidence of acu te fracture involving the hips or bony pelvis. A bipolar left hip arthroplasty is in near-anatomic al ignment. No periprosthetic lucency is seen. Mild degenerative joint space narrowing seen in the right hip. The sacral iliac joints are normal as imaged. The overlying soft tissues are normal as visualiz ed. There is atherosclerotic calcification of the femoral arteries. A bone island is again noted in t he medial left ilium. IMPRESSION: No acute bony abnormality is identified. Electronically signed by: Dustin Rosales M.D. 05/17/2019 3:19 PM
--- NOTE | 2019-05-17 15:29 | XRay Report ---
XR chest 1V portable HISTORY: 84 years-old Male Chest Pain acute atypical chest pain COMPARISON: Chest radiograph 05/04/2019, chest CT 05/07/2019 TECHNIQUE: Portable AP view of the chest FINDINGS: Cardiomediastinal and hilar silhouettes appear unchanged. Resolution of the previously described pleu ral effusions and pulmonary edema. Calcified plaque of the thoracic cortical arch. No pneumothorax or focal airspace consolidation to suggest pneumonia. Emphysema. Degenerative changes of the shoulders and spine. IMPRESSION: 1. Mild cardiomegaly with resolution of the previously described pulmonary edema and pleural effusion s. 2. No airspace consolidation typical for pneumonia. 3. Emphysema. ACT 112: Negative or not required by law. The above report was generated using voice recognition software. It may contain grammatical, syntax o r spelling errors. Electronically signed by: Jacky Montenegro M.D. 05/17/2019 3:28 PM
--- NOTE | 2019-05-17 15:31 | History & Physical Report ---
Date of Service May 17, 2019 Assessment & Plan (1) Acute hyponatremia: Pt with evidence of CJ since labs at discharge as well as hyponatremia - may be due to adjustment of diuretic regimen. - Hold diuretics - Due to diminished EF, will hold off on any additional IVF for now (received 500 ml in ED) - Repeat BMP at 1900 today and in AM for trend - Consult nephrology (2) Weakness: Likely multifactorial due to #1, unknown pill that pt took, and protein- calorie malnutrition - Consult PT/OT - Check UDS in attempt to identify substance that pt took today - ?marijuana (3) Severe malnutrition: - Consult coffee grower - Heart-healthy diet - pt has been using Boost BID at home - continue while admitted pending coffee grower recommendations (4) Chronic systolic heart failure: Appears to be at baseline at present. However, holding diuretics due to #1. Will need to monitor closely. (5) Hypertension: - Continue Lisinopril. Toprol still on hold from last admission due to bradycardia/1st degree AV block - Monitor off diuretics (6) Dyslipidemia: (7) Nonischemic cardiomyopathy: Echo done during last admission earlier this month - calculated LVEF = 28% (8) BPH (benign prostatic hyperplasia): - Continue doxazosin - pt reports stable symptoms on outpatient regimen Patient seen and examined with collaborating physician, Dr. Arzate. Plan of care discussed and as outlined above. Please see physician's addendum for additional information/recommendations. Monica Noriega PA-C History of Present Illness Chief Complaint: "I became unstable walking" Primary Care Provider: Taylor Lopez, DO 84 y/o male who presents with weakness and instability x 1 day. This AM took routine medications and apparently felt at baseline. Decided to try an unknown capsule with "brown stuff" in it that a friend gave him to help with his appetite - he took this late morning. He reports starting to feel worse about an hour later with unsteadiness when standing and generalized weakness. Associated dizziness and blurry vision. At one point this afternoon, he reports that symptoms were so severe he couldn't walk at all without support. [place] a "slight haziness" but denies pain anywhere. No fevers, chills, nausea vomiting, abd pain, diarrhea, constipation, M[place], CP, SOB. +cough for "quite a while" - productive of yellow mucus. Currently feels about the same as when he arrived - symptoms don't seem to be improving with time. No dysuria or difficulties with urination. Only urinary frequency related to diuretics. Pt somewhat of a difficult historian - reports he gets confused at times. Chart extensively reviewed. Multiple admissions over the past six months including: Initially biventricular pacemaker/AICD placed 11/21/[address] Zamorano. Admitted 01/11- [facility] secondary to suspected pacemaker infection, later transferred to [facility] which she had pacer/AICD removed on 01/14 and treated with antibiotics, culture grew Pseudomonas. Admitted 02/04 to 02/07/2019 secondary to hospital-acquired pneumonia. Admitted 02/10 to 02/11 secondary to acute on chronic systolic CHF treated with diuresis. Admitted 05/03 to 05/08/19 secondary to pleural effusion and acute on chronic CHF. Toprol XL discontinued, Lasix adjusted. W/u for ?malignancy due to wt loss negative - to see coffee grower outpt for severe PCM Allergies Allergy/AdvReac Type Severity Reaction Status Date / Time No Known Allergies Allergy Unknown Verified 05/03/19 10:38 Home Medications Home Medications Medication Instructions Recorded Confirmed Type aspirin 81 mg PO QAM 10/27/18 05/17/19 History atorvastatin 10 mg PO QAM 10/27/18 05/17/19 History doxazosin 2 mg PO QAM 10/27/18 05/17/19 History fluticasone propionate 2 spray INTRANASAL DAILY 10/27/18 05/17/19 History lisinopril 40 mg PO QAM 10/27/18 05/17/19 History mirtazapine 45 mg PO HS 10/27/18 05/17/19 History amiodarone 200 mg PO QAM 11/15/18 05/17/19 History furosemide 20 mg PO QAM 30 Days #30 tab 05/07/19 05/17/19 Rx spironolactone 25 mg PO QAM 30 Days #30 tab 05/07/19 05/17/19 Rx Past Med/Surg History Medical History 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 Underwent procedure without any complications; monitored overnight and discharged home. 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 11/01/18 = widely patent coronary arteries History of cardiac cath SEPTEMBER 2018 AT [facility] NO STENTS History of cataract surgery (Chronic) BILATERAL History of colonoscopy History of tonsillectomy and adenoidectomy (Chronic) History of total left hip replacement (Chronic) Family History Mother Hypertension Brother FHx: myocardial infarction HALF-BROTHER Social History (Updated 05/17/19 @ 16:03 by Kaycee Noriega PA-C) Preferred Language: Upper Sorbian Communication Ability: Effective Academic Support Specialist Required: No Beliefs That Will Affect Care: None marital status: Current Living Situation: Spouse Current Living Situation Comment: at home current occupational status: retired Feels Safe at Home: Yes Smoking Status: Former smoker Tobacco Type: cigarettes ; Smoking End Date: 05/19/18 ; Second Hand Exposure: No ; Hx Alcohol Use: Yes Hx Substance Use: No Review of Systems Review of Systems: All systems reviewed & are unremarkable except as noted in HPI & below Constitutional: + fatigue and + anorexia; no fever, no chills and no sweats Eyes: Transient blurry vision during dizziness this afternoon Ear, Nose, Mouth, Throat: no ear pain, no nasal congestion, no nasal discharge, no sore throat and no dysphagia Respiratory: + cough (chronic productive); no dyspnea, no hemoptysis and no wheezing Cardiovascular: no chest pain, no palpitations, no syncope and no edema Gastrointestinal: no abdominal pain, no nausea, no vomiting, no constipation, no diarrhea/loose stools and no blood in stools Genitourinary: + urinary frequency (due to diuresis); no dysuria and no hematuria Musculoskeletal: no back pain, no neck pain and no joint pain Integumentary: no rash, no skin ulcer and no urticaria Neurologic: + gait abnormality, + unsteadiness, + generalized weakness and + confusion ("haziness"); no headache(s) and no abnormal speech Endocrine: no polydipsia and no polyuria Physical Exam Constitutional: + cachectic; no acute distress Eyes: + anicteric sclerae; no conjunctival abnormality ENMT: external ear and nose normal, oropharynx normal Neck: trachea midline Respiratory: normal respiratory effort, lungs clear to auscultation Auscultation: no rales, no rhonchi and no wheezes Cardiovascular: Rate/Rhythm: regular rate and regular rhythm Vessels: no carotid bruit Extremities: normal capillary refill; no pedal edema Gastrointestinal (Abdomen): Inspection/Auscultation: normal bowel sounds; abdomen not distended Percussion/Palpation: abdomen soft; abdomen nontender Musculoskeletal: Head/Neck/Chest: neck supple Extremities: + muscle atrophy; no cyanosis Skin: no rashes, warm and dry no jaundice Neurologic: moves all extremities; no focal motor deficits Speech / Cognition: normal speech Psychiatric: Orientation: alert Affect: + flat affect Results & Data Vital Signs (Past 12 Hours) Vital Signs Temp Pulse Resp BP Pulse Ox 05/17/19 13:30 37 C 72 20 137/56 L 97 Laboratory Results Laboratory Results - last 24 hr 05/17/19 05/17/19 05/17/19 13:52 13:55 13:55 WBC 9.42 RBC 3.67 L Hgb 12.4 L Hct 36.4 L MCV 99.2 MCH 33.8 MCHC 34.1 RDW Std Deviation 47.3 H RDW Coeff of Ty 12.9 Plt Count 251 MPV 9.9 Immature Gran % (Auto) 0.3 Neut % (Auto) 85.8 Lymph % (Auto) 7.5 [place] % (Auto) 5.8 Eos % (Auto) 0.3 Baso % (Auto) 0.3 Immature Gran # (Auto) 0.03 H Neut # (Auto) 8.07 H Lymph # (Auto) 0.71 L [place] # (Auto) 0.55 Eos # (Auto) 0.03 Baso # (Auto) 0.03 Sodium 126 L Potassium 4.9 Chloride 88 L Carbon Dioxide 33 H Anion Gap 4.0 BUN 28 H Creatinine 1.52 H Est Cr Clr Drug Dosing 24.5 Est GFR ( Amer) 48.4 Est GFR (Non-Af Amer) 41.8 BUN/Creatinine Ratio 18.3 Glucose 133 H POC Glucose 139 H Calcium 9.2 Troponin I 0.029 Lipase 77 Salicylates Acetaminophen 05/17/19 13:55 WBC RBC Hgb Hct MCV MCH MCHC RDW Std Deviation RDW Coeff of Ty Plt Count MPV Immature Gran % (Auto) Neut % (Auto) Lymph % (Auto) [place] % (Auto) Eos % (Auto) Baso % (Auto) Immature Gran # (Auto) Neut # (Auto) Lymph # (Auto) [place] # (Auto) Eos # (Auto) Baso # (Auto) Sodium Potassium Chloride Carbon Dioxide Anion Gap BUN Creatinine Est Cr Clr Drug Dosing Est GFR ( Amer) Est GFR (Non-Af Amer) BUN/Creatinine Ratio Glucose POC Glucose Calcium Troponin I Lipase Salicylates < 1.7 L Acetaminophen < [address] Head 05/17/2019 - IMPRESSION: 1. Chronic small vessel ischemic change and old lacunar infarct in the left thalamus. No acute intracranial abnormality. 2. Chronic sinusitis of the left maxillary and sphenoid sinuses. Chest x-ray 05/17/2019 - IMPRESSION: 1. Mild cardiomegaly with resolution of the previously described pulmonary edema and pleural effusions. 2. No airspace consolidation typical for pneumonia. 3. Emphysema. Pelvis x-ray 05/17/2019 - IMPRESSION: No acute bony abnormality is identified. Medications Administered Discontinued Medications Sodium Chloride (Nss) 500 mls @ 999 mls/hr IV .Q31M CANDICE Stop: 05/17/19 14:15 Last Infusion: 05/17/19 15:57 Dose: 0 mls/hr Documented by: [id number] Admin: 05/17/19 14:45 Dose: 999 mls/hr Documented by: [id number] Ondansetron HCl (Zofran) 4 mg IV NOW STA Stop: 05/17/19 13:46 Last Admin: 05/17/19 14:45 Dose: 4 mg Documented by: [id number] Supervising Physician Co-Signing Physician Notes 84 y/o male who presents with weakness and instability x 1 day History and physical exam performed by me. Detailed history noted by Monica Noriega PA-C History notable for chronic anorexia, unsteadiness and dizziness today after getting a pill from a friend Physical exam notable for cachexia, severe malnutrition with loss of muscle mass and bony prominences. Na 126 Cr 1.52 from 1.23 in 05/08/2019 Bicarb 33 Hyponatremia CJ on CKD3 Likely related to diuretics as patient was started on spironolactone and lasix on discharge on 05/08/2019 Hold diuretics for now Monitor electrolytes and cr Encourage oral intake Nutrition consult Patient believes the pill friend gave him may contain marijuana which he only realized after taking it. He stated his friend told him it will help his appetite Check UDS PT eval Check orthostatic vital signs Other plans as detailed above
[2019-05-17 18:12] LABS: Amphetamines+Metham, Urine Neg (Neg); Barbiturates, Urine Neg (Neg); Benzodiazepine, Urine Neg (Neg); Cocaine, Urine Neg (Neg); MDMA (Ecstacy), Urine Neg (Neg); Methadone, Urine Neg (Neg); Opiate, Urine Neg (Neg); Phencyclidine, Urine Neg (Neg)
[2019-05-17] MEDS ORDERED: ACETAMINOPHEN 325 MG TAB PO PRN (18:17)
--- NOTE | 2019-05-17 19:37 | Emergency Department Note ---
Entered by Jayson Molina acting as a scribe for History of Present Illness General Chief complaint: Weakness Time Seen by Provider: 05/17/19 13:39 Source: patient Mode of arrival: EMS History of Present Illness Onset (ago): hour(s) (this morning) Location: lower extremity, left and right Pain Consistency: + constant Quality: + other (loss of balance) Associated symptoms: + denies other symptoms (hitting his head, abdominal pain); no chest pain, no nausea/vomiting and no shortness of breath The patient is an 84 y/o male who presents to the ED w/ CC of a constant dizziness and weakness that began this morning. The patient arrives via EMS. The patient states when he woke up he felt dizzy and weak so the patient states he took a capsule this morning of his friend's which he believed contained medical marijuana. He reports since then he has lost his balance. The patient denies hitting his head, nausea, vomiting, abdominal pain, chest pain, shortness of breath, and alcohol use. He states that ever since he took the pill which he thought contained medical marijuana, his dizziness and weakness have become worse and he feels worse. Home Medications Home Medications Medication Instructions Recorded Confirmed Type aspirin 81 mg PO QAM 10/27/18 05/17/19 History atorvastatin 10 mg PO QAM 10/27/18 05/17/19 History doxazosin 2 mg PO QAM 10/27/18 05/17/19 History fluticasone propionate 2 spray INTRANASAL DAILY 10/27/18 05/17/19 History lisinopril 40 mg PO QAM 10/27/18 05/17/19 History mirtazapine 45 mg PO HS 10/27/18 05/17/19 History amiodarone 200 mg PO QAM 11/15/18 05/17/19 History furosemide 20 mg PO QAM 30 Days #30 tab 05/07/19 05/17/19 Rx spironolactone 25 mg PO QAM 30 Days #30 tab 05/07/19 05/17/19 Rx Allergies Allergy/AdvReac Type Severity Reaction Status Date / Time No Known Allergies Allergy Unknown Verified 05/03/19 10:38 Past Med/Surg History Medical History 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 Underwent procedure without any complications; monitored overnight and discharged home. 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 and A total of 10 systems reviewed and were otherwise negative Physical Exam Vital Signs Vital Signs - 24 hr 05/17/19 13:21 05/17/19 13:25 05/17/19 13:30 Temperature 37 C Temperature Source Oral Pulse Rate 71 69 72 Pulse Rate [Apical] Pulse Rate from SpO2 Sensor 71 70 Pulse Rhythm Regular Pulse Strength Normal Respiratory Rate 21 18 20 Respiratory Effort / Characteristics Non-Labored Spontaneous Respiratory Depth Normal Respiratory Pattern Regular Blood Pressure 137/56 L 137/56 L Blood Pressure [Right Arm] Blood Pressure Mean 86 83 Blood Pressure Mean [Right Arm] Blood Pressure Position [Right Arm] Pulse Oximetry 98 97 97 Oxygen Delivery Method Room Air Sepsis Recent Fever Within 48 Hours No Sepsis Action Taken by Nursing No Action Required 05/17/19 14:00 05/17/19 15:00 05/17/19 15:09 Temperature Temperature Source Pulse Rate 67 70 Pulse Rate [Apical] 67 Pulse Rate from SpO2 Sensor 67 Pulse Rhythm Pulse Strength Respiratory Rate 16 19 20 Respiratory Effort / Characteristics Non-Labored Spontaneous Respiratory Depth Normal Respiratory Pattern Blood Pressure Blood Pressure [Right Arm] 120/51 L Blood Pressure Mean Blood Pressure Mean [Right Arm] 74 Blood Pressure Position [Right Arm] Sitting Pulse Oximetry 96 97 Oxygen Delivery Method Room Air Sepsis Recent Fever Within 48 Hours Sepsis Action Taken by Nursing GENERAL: He is oriented to person, place, and time. He appears well-developed and well-nourished. He does not appear distressed. He appears lethargic. HENT: Exam performed. - Head: Normocephalic and atraumatic. - Right Ear: External ear normal. No mastoid tenderness. - Left Ear: External ear normal. No mastoid tenderness. - Mouth/Throat: The oropharynx is clear and moist. No trismus in the jaw. No dental abscesses or uvula swelling. No oropharyngeal exudate or tonsillar abscesses. EYES: Conjunctivae and EOM are normal. Pupils are equal, round, and reactive to light. Right eye exhibits no discharge. Left eye exhibits no discharge. No scleral icterus. NECK: Normal range of motion. Neck supple. No JVD present. No spinous process tenderness present. No carotid bruit present. No rigidity. No tracheal deviation and normal range of motion present. No Brudzinski's sign and no Kernig's sign noted. CV: Normal rate, regular rhythm, normal heart sounds and intact distal pulses. There is no peripheral edema. Palpable radial pulses bue. PULM/CHEST: Effort normal and breath sounds normal. No respiratory distress. No stridor. He has no wheezes. He has no rales. - Chest Wall: He exhibits no tenderness. ABD: The abdomen is soft. Bowel sounds are normal. He has no distension. No mass is present. There is no tenderness. There is no rebound, no guarding, no Gandhi's sign and no tenderness at McBurney's point. Rovsig negative. MUSC/SKEL: Normal range of motion. There is no peripheral edema, tenderness or deformity. LYMPH: No cervical adenopathy. NEURO: Appears lethargic. Awake, alert, and oriented x3. Motor and sensation grossly intact. SKIN: Skin is warm and dry. He is not diaphoretic. PSYCH: He has a normal mood and affect. Behavior is normal. Judgment and thought content normal. Course Course 1342: Past medical records reviewed. The patient was evaluated in room B04B. A complete history and physical exam was performed. 1504: Vital signs stable. The patient does appear more alert and less lethargic after receiving IV fluids. He has a Na of 126 and an elevated creatinine of 1.52. It is unclear if the patient's AMS and weakness are from marijuana or acute hyponatremia. The denizt patient will be admitted to the [facility] system. I reviewed the patient's case with JYOTSNA Wiley, [facility]ist, attending Dr. Dey. She will evaluate the patient for further management. Administered Medications Discontinued Medications Sodium Chloride (Nss) 500 mls @ 999 mls/hr IV .Q31M CANDICE Stop: 05/17/19 14:15 Last Infusion: 05/17/19 15:57 Dose: 0 mls/hr Documented by: [id number] Admin: 05/17/19 14:45 Dose: 999 mls/hr Documented by: [id number] Ondansetron HCl (Zofran) 4 mg IV NOW STA Stop: 05/17/19 13:46 Last Admin: 05/17/19 14:45 Dose: 4 mg Documented by: [id number] Medical Decision Making Medical Records Attestation: I reviewed the patient's medical records. Home Medications Current Medication List: was personally reviewed by me Laboratory Data Attestation: I reviewed the patient's lab results. Result diagrams: 05/17/19 13:55 05/17/19 13:55 Lab Results 05/17/19 05/17/19 05/17/19 Range/Units 13:52 13:55 13:55 WBC 9.42 (4.8-10.8) K/uL RBC 3.67 L (4.7-6.1) M/uL Hgb 12.4 L (14.0-18.0) g/dL Hct 36.4 L (42-52) % MCV 99.2 (80-100) fL MCH 33.8 (25-34) pg MCHC 34.1 (32-36) g/dL RDW Std Deviation 47.3 H (36.4-46.3) fL RDW Coeff of Ty 12.9 (11.5-14.5) % Plt Count 251 (130-400) K/uL MPV 9.9 (7.4-10.4) fL Immature Gran % (Auto) 0.3 % Neut % (Auto) 85.8 % Lymph % (Auto) 7.5 % Blackford % (Auto) 5.8 % Eos % (Auto) 0.3 % Baso % (Auto) 0.3 % Immature Gran # (Auto) 0.03 H (0.00-0.02) K/uL Neut # (Auto) 8.07 H (1.4-6.5) K/uL Lymph # (Auto) 0.71 L (1.2-3.4) K/uL Blackford # (Auto) 0.55 (0.11-0.59) K/uL Eos # (Auto) 0.03 (0-0.5) K/uL Baso # (Auto) 0.03 (0-0.2) K/uL Sodium 126 L (136-145) mmol/L Potassium 4.9 (3.5-5.1) mmol/L Chloride 88 L (98-107) mmol/L Carbon Dioxide 33 H (21-32) mmol/L Anion Gap 4.0 (3-11) BUN 28 H (7-18) mg/dl Creatinine 1.52 H (0.6-1.4) mg/dl Est Cr Clr Drug Dosing 24.5 ml/min Est GFR ( Amer) 48.4 Est GFR (Non-Af Amer) 41.8 BUN/Creatinine Ratio 18.3 (10-20) Glucose 133 H (70-99) mg/dl POC Glucose 139 H (70-99) mg/dl Calcium 9.2 (8.5-10.1) mg/dl Troponin I 0.029 (0-0.045) ng/ml Lipase 77 (73-393) U/L Salicylates (2.8-20) mg/dl Acetaminophen (10-30) ug/ml 05/17/19 Range/Units 13:55 WBC (4.8-10.8) K/uL RBC (4.7-6.1) M/uL Hgb (14.0-18.0) g/dL Hct (42-52) % MCV (80-100) fL MCH (25-34) pg MCHC (32-36) g/dL RDW Std Deviation (36.4-46.3) fL RDW Coeff of Ty (11.5-14.5) % Plt Count (130-400) K/uL MPV (7.4-10.4) fL Immature Gran % (Auto) % Neut % (Auto) % Lymph % (Auto) % Blackford % (Auto) % Eos % (Auto) % Baso % (Auto) % Immature Gran # (Auto) (0.00-0.02) K/uL Neut # (Auto) (1.4-6.5) K/uL Lymph # (Auto) (1.2-3.4) K/uL Blackford # (Auto) (0.11-0.59) K/uL Eos # (Auto) (0-0.5) K/uL Baso # (Auto) (0-0.2) K/uL Sodium (136-145) mmol/L Potassium (3.5-5.1) mmol/L Chloride (98-107) mmol/L Carbon Dioxide (21-32) mmol/L Anion Gap (3-11) BUN (7-18) mg/dl Creatinine (0.6-1.4) mg/dl Est Cr Clr Drug Dosing ml/min Est GFR ( Amer) Est GFR (Non-Af Amer) BUN/Creatinine Ratio (10-20) Glucose (70-99) mg/dl POC Glucose (70-99) mg/dl Calcium (8.5-10.1) mg/dl Troponin I (0-0.045) ng/ml Lipase (73-393) U/L Salicylates < 1.7 L (2.8-20) mg/dl Acetaminophen < 2 L (10-30) ug/ml Imaging Data Radiologist's Impression: Radiology results as stated below per my review and the radiologist's interpretation: XR chest 1V portable HISTORY: 84 years-old Male Chest Pain acute atypical chest pain COMPARISON: Chest radiograph 05/04/2019, chest CT 05/07/2019 TECHNIQUE: Portable AP view of the chest FINDINGS: Cardiomediastinal and hilar silhouettes appear unchanged. Resolution of the previously described pleural effusions and pulmonary edema. Calcified plaque of the thoracic cortical arch. No pneumothorax or focal airspace consolidation to suggest pneumonia. Emphysema. Degenerative changes of the shoulders and spine. IMPRESSION: 1. Mild cardiomegaly with resolution of the previously described pulmonary edema and pleural effusions. 2. No airspace consolidation typical for pneumonia. 3. Emphysema. ACT 112: Negative or not required by law. The above report was generated using voice recognition software. It may contain grammatical, syntax or spelling errors. Electronically signed by: Jacky Montenegro M.D. 05/17/2019 3:[address] head/brain wo con CLINICAL HISTORY: 84 years-old Male presenting with fall after smoking marijuana. TECHNIQUE: Multidetector CT imaging of the head was performed without the use of intravenous contrast. IV contrast: None. One or more dose lowering techniques were used consistent with the principles of ALARA (as low as reasonably achievable), including automatic exposure control, mA or kV adjustment to individual patient size, and/or use of iterative reconstruction. COMPARISON: None. CT DOSE (mGy.cm): The estimated cumulative dose is 614.27 mGy.cm. FINDINGS: Vibrator Equipment Tester topogram: Unremarkable. Ventricles and sulci normal in size. No hemorrhage. Periventricular and subcortical white matter hypoattenuation, nonspecific but likely indicative of chronic small vessel ischemic change. Old lacunar infarct in the left thalamus. No acute territorial infarct. No mass effect or midline shift. No extra-axial fluid collection. Air-fluid level in the left maxillary sinus with sclerosis of the sinus potts. Fluid in the left mastoid air cells. Mild mucosal thickening and sclerosis of the left sphenoid sinus. Calvarium intact. IMPRESSION: 1. Chronic small vessel ischemic change and old lacunar infarct in the left thalamus. No acute intracranial abnormality. 2. Chronic sinusitis of the left maxillary and sphenoid sinuses. ACT 112: Negative or not required by law. Electronically signed by: Hemant Ho M.D. 05/17/2019 2:52 PM SINGLE VIEW PELVIS CLINICAL HISTORY: Fall. FINDINGS: 2 AP supine views of the hips and bony pelvis are obtained. Correlation is made with pelvic CT dated 05/07/2019. The skeletal structures are osteopenic. There is no radiographic evidence of acute fracture involving the hips or bony pelvis. A bipolar left hip arthroplasty is in near-anatomic alignment. No periprosthetic lucency is seen. Mild degenerative joint space narrowing seen in the right hip. The sacral iliac joints are normal as imaged. The overlying soft tissues are normal as visualized. There is atherosclerotic calcification of the femoral arteries. A bone island is again noted in the medial left ilium. IMPRESSION: No acute bony abnormality is identified. Electronically signed by: Dustin Rosales M.D. 05/17/2019 3:19 PM ECG Data Attestation: I personally reviewed and interpreted this ECG as follows: Indication: + weakness Rate (beats per minute): 68 Rhythm: + sinus rhythm ECG Intervals/blocks: + Left bundle branch block ECG Findings: + Other (NJ 214, QRS 172, QTc 499, sgarbossa negative) Comparison ECG Date: from (05/05/19) Change: no significant change Blood Pressure Blood Pressure Findings: Normal blood pressure Blood Pressure Disposition: did not require urgent referral MDM Narrative Vital signs stable. The patient does appear more alert and less lethargic after receiving IV fluids. He has a Na of 126 and an elevated creatinine of 1.52. It is unclear if the patient's AMS and weakness are from marijuana or acute hyponatremia. The denizt patient will be admitted to the [facility] system. I reviewed the patient's case with JYOTSNA Wiley, [facility] Hospitalist, attending Dr. Dey. She will evaluate the patient for further management. Impression & Plan Acute hyponatremia Discharge Plan Visit Data *Final* Discharge Date/Time: 05/17/19 18:13 Chief Complaint: Weakness ED Provider: Phani Chiang Discharge Problem: Acute hyponatremia Patient Disposition: Admitted As Inpatient Discharge Instructions Interventions: ED Discharge Assessment Last Done: 05/17/19 18:13 The scribe's documentation has been prepared under my direction and personally reviewed by me in its entirety. I confirm that the note above accurately reflects all work, treatment, procedures, and medical decision making performed by me.
[2019-05-17] MEDS: HEPARIN SOD 5,000 UNIT/0.5 ML VIAL SQ SCH (20:46)
[2019-05-17] MEDS: MIRTAZAPINE SOLTAB 15 MG PO SCH (20:46)
[2019-05-17 20:52] LABS: Creatinine Clr Calc Pharmacy 23.7 ml/min; Est GFR (African American) 46.6; Est GFR (Non-African American) 40.2; Potassium 4.7 mmol/L (3.5-5.1)
--- NOTE | 2019-05-18 06:36 | Electrocardiogram Report ---
Test Reason : Blood Pressure : / mmHG Vent. Rate : 068 BPM Atrial Rate : 068 BPM P-R Int : 214 ms QRS Dur : 172 ms QT Int : 470 ms P-R-T Axes : 057 -34 110 degrees QTc Int : 499 ms Sinus rhythm with 1st degree A-V block Left axis deviation Left bundle branch block Abnormal ECG When compared with ECG of 05-MAY-2019 06:53, Premature ventricular complexes are no longer Present Confirmed by Roly Oates ([id number]) on 05/18/2019 6:35:29 AM Referred By: Confirmed By:Roly Oates
[2019-05-18 07:31] LABS: Basophils # (auto) 0.06 K/uL (0-0.2); Basophils % (auto) 0.8 %; Eosinophils # (auto) 0.27 K/uL (0-0.5); Eosinophils % (auto) 3.5 %; Hematocrit (blood only) 34.5 % (42-52); Hemoglobin 11.6 g/dL (14.0-18.0); Immature Granulocytes # (auto) 0.03 K/uL (0.00-0.02); Immature Granulocytes % (auto) 0.4 %; Lymphocytes # (auto) 1.59 K/uL (1.2-3.4); Lymphocytes % (auto) 20.8 %; Mean Corpuscular Hemoglobin 33.5 pg (25-34); Mean Corpuscular Hgb Conc 33.6 g/dL (32-36); Mean Corpuscular Volume 99.7 fL (80-100); Mean Platelet Volume 10.3 fL (7.4-10.4); Monocytes # (auto) 0.71 K/uL (0.11-0.59); Monocytes % (auto) 9.3 %; Neutrophils # (auto) 4.97 K/uL (1.4-6.5); Neutrophils % (auto) 65.2 %; Platelet Count 267 K/uL (130-400); RDW Coefficient of Variation 12.9 % (11.5-14.5); Red Blood Count 3.46 M/uL (4.7-6.1); White Blood Count 7.63 K/uL (4.8-10.8)
[2019-05-18 08:02] LABS: BUN Creatinine Ratio 17.2 (10-20); Calcium 9.2 mg/dl (8.5-10.1); Creatinine Clr Calc Pharmacy 27.3 ml/min; Est GFR (African American) 48.8; Est GFR (Non-African American) 42.1; Potassium 5.1 mmol/L (3.5-5.1)
[2019-05-18] MEDS: DOXAZosin MESYLATE TAB 2 MG TAB PO SCH (08:19)
[2019-05-18] MEDS: ASPIRIN 81 MG ECTAB PO SCH (08:20)
[2019-05-18] MEDS: AMIODARONE 200 MG TAB PO SCH (08:20)
[2019-05-18] MEDS: FLUTICASONE PROPIONATE NA SPR 16 GM BTL NAE SCH (08:22)
[2019-05-18] MEDS: HEPARIN SOD 5,000 UNIT/0.5 ML VIAL SQ SCH ×2 (08:22→20:46)
[2019-05-18] MEDS: ATORVASTATIN 10 MG TAB PO SCH (08:22)
[2019-05-18] MEDS ORDERED: lisinopriL 40 MG TAB PO SCH (09:00)
--- NOTE | 2019-05-18 09:16 | Nephrology Consultation ---
Date of Consultation May 18, 2019 Assessment & Plan (1) CJ (acute kidney injury): Creatinine 1.2-1.3 PR: Presenting creatinine 1.5 unchanged today. Not oliguric -Stop lisinopril, though I suspect it has already been given today -Continue to hold Lasix and spironolactone Daily BMP Urinalysis with microscopy ordered -Continue NSAID avoidance Present on Admission?: Yes (2) Acute hyponatremia: This is not acute hyponatremia; this is chronic hyponatremia (i.e., present greater than 48 hours). His sodium has recovered to prior chronic baseline of about 130. doubt a change like this is enough to cause his weakness prior to presentation -for now no FR or low sodium diet : monitor -with a clear CXR and PE w/o evidence of volume overload, consider this either euvolemic or hypovolemic hyponatremia at this point but data pending Ordered serum osmolality, urine osmolality, random urine sodium to be drawn later this afternoon Present on Admission?: Yes (3) Chronic systolic heart failure: On 20 mg daily Lasix as an outpatient as well as 25 mg daily spironolactone. Both of these are on hold appropriately. Monitor for need to restart; note also low sodium diet Present on Admission?: Yes History of Present Illness Reason for Consultation: Acute kidney injury and hyponatremia Requesting Physician: Dr. Tyson Attending Physician: Michelle Tyson MD History of Present Illness 84-year-old male whom I am asked to evaluate for acute kidney injury and hyponatremia was admitted last evening for the same after he presented with generalized weakness, worsening ambulatory dysfunction. Past medical history includes COPD, hypertension, nonischemic cardiomyopathy, left bundle branch block, chronic systolic heart failure, status post biventricular ICD placement, peripheral vascular disease with chronic total occlusion of left superficial femoral artery, s/p L hip replacement Also with frequent hospital admissions recently, including 5-day admission earlier this month for pleural effusion and acute on chronic heart failure with unexplained weight loss and concern for malignancy. I do note however that on May 13 in [facility], he weighed 120 pounds. And 1 year ago he weighed 123 pounds. Weight over the past year has ranged in clinic from 117 to 126 lb. His baseline creatinine is 1.2-1.4 since December 2018, prior to that had been 1.1-1.2; his presenting creatinine was 1.5 yesterday afternoon, unchanged this morning. Presenting sodium was 126 at 2 PM yesterday, dipped to 125 by 8 p.m. but improved to 130 this morning. Of note at recent hospital discharge, sodium was 130. In the ER he had half a liter of normal saline. His 40 mg daily lisinopril was continued. Denies hx of home NSAID use; did have self limiting "nephritis" as teen; remote stones; has never seen nephro in clinic that he can recall. denies chest pain, sob, cough, uncontrolled pain. chronic poor appetite. no n/v/d. denies voiding problems or fall. Allergies Allergy/AdvReac Type Severity Reaction Status Date / Time No Known Allergies Allergy Unknown Verified 05/03/19 10:38 Home Medications Home Medications Medication Instructions Recorded Confirmed Type aspirin 81 mg PO QAM 10/27/18 05/17/19 History atorvastatin 10 mg PO QAM 10/27/18 05/17/19 History doxazosin 2 mg PO QAM 10/27/18 05/17/19 History fluticasone propionate 2 spray INTRANASAL DAILY 10/27/18 05/17/19 History lisinopril 40 mg PO QAM 10/27/18 05/17/19 History mirtazapine 45 mg PO HS 10/27/18 05/17/19 History amiodarone 200 mg PO QAM 11/15/18 05/17/19 History furosemide 20 mg PO QAM 30 Days #30 tab 05/07/19 05/17/19 Rx spironolactone 25 mg PO QAM 30 Days #30 tab 05/07/19 05/17/19 Rx Patient History Medical History 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 Underwent procedure without any complications; monitored overnight and discharged home. 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 Beliefs That Will Affect Care: None marital status: Current Living Situation: Spouse Current Living Situation Comment: [facility] [facility] [employer] current occupational status: retired Other Information That Helps Us Care for You: No Feels Safe at Home: Yes Safety Concerns: Feels Safe At This Time Smoking Status: Former smoker Tobacco Type: cigarettes ; Smoking End Date: 05/19/18 ; Second Hand Exposure: No ; Hx Alcohol Use: No Hx Substance Use: No Physical Exam Constitutional: well developed, + cachectic and cooperative; no acute distress Eyes: EOM intact bilaterally ENMT: Ears: no external ear abnormality Nose: no external nose abnormality Mouth: + dry oral mucous membranes Neck: no nuchal rigidity Respiratory: normal respiratory effort Auscultation: + diminished lung sounds Cardiovascular: RRR, no murmur, no edema Gastrointestinal (Abdomen): Inspection/Auscultation: normal bowel sounds Percussion/Palpation: abdomen soft; abdomen nontender Musculoskeletal: Extremities: strength 5/5 throughout Skin: no rashes, warm and dry + pallor Neurologic: awake alonzo, fluent speech, no tremor, maneuvers carefully but on own strength for exam Psychiatric: A+Ox3, euthymic affect Genitourinary: no ríos Results & Data Vital Signs (Past 12 Hours) Vital Signs Temp Pulse Pulse Resp BP BP Pulse Ox 05/18/19 07:18 36.5 C 62 18 121/56 L 93 05/18/19 03:56 36.5 C 59 L 18 112/65 94 05/17/19 23:52 36.3 C L 62 18 121/58 L 97 05/17/19 23:00 63 Laboratory Results 05/18/19 06:43 05/18/19 06:43 Diagnostic Findings Chest x-ray May 17 1. Mild cardiomegaly with resolution of the previously described pulmonary edema and pleural effusions. 2. No airspace consolidation typical for pneumonia. 3. Emphysema. Head CT May 17 1. Chronic small vessel ischemic change and old lacunar infarct in the left thalamus. No acute intracranial abnormality. 2. Chronic sinusitis of the left maxillary and sphenoid sinuses. Pelvis x-ray May 17 no fracture
--- NOTE | 2019-05-18 09:53 | Hospitalist Progress Note ---
Date of Service May 18, 2019 Assessment & Plan (1) Weakness: Presented with generalized weakness, dizzy spell, blurred vision, possible secondary to drug use, marijuana Patient was given a tablet by friend to increase appetite/patient experienced untoward side effects, nausea dizzy spell lightheadedness generalized weakness blurred vision afterward Urine tox screen positive for marijuana Symptom improved after overnight stay in the hospital No headache no blurred vision, no nausea Ordered for PT OT, fall precaution Hyponatremia: Acute on chronic hyponatremia, Outpatient diuretics kept on hold sodium level gradually improved Appreciate input from nephrology Acute renal failure on CKD stage III Stable secondary to prerenal/dehydration, poor p.o. intake Lasix and Aldactone kept on hold Patient given IV fluids Creatinine improved to base (2) Severe malnutrition: Has been chronic, poor appetite, ongoing weight loss for past [address] abdomen pelvis, CT chest last admission for malignancy work-up, was negative for any mass or pathology Tumor markers were sent as well Did not had any recent colonoscopy Recommendation was given for outpatient colonoscopy to be scheduled, No dark or tarry stool - Consult structural steel worker helper - Heart-healthy diet - pt has been using Boost BID at home - continue while admitted pending structural steel worker helper recommendations (3) Chronic systolic heart failure: Volume status stable, was given IV fluids on admission for clinical dehydration IV fluid discontinued, patient is encouraged to increase p.o. intake of fluids (4) Hypertension: -Blood pressure remains stable Lasix and Aldactone kept on hold for acute renal failure hyponatremia (5) Dyslipidemia: (6) Nonischemic cardiomyopathy: Echo done during last admission earlier this month - calculated LVEF = 28% Volume status stable, diuretics on hold due to above (7) BPH (benign prostatic hyperplasia): - Continue doxazosin - pt reports stable symptoms on outpatient regimen CODE STATUS: Full code Disposition: Lives at home with , was independent in ADLs, Marked functional decline noted in recent weeks PT OT evaluation requested Social service consulted for discharge planning Subjective Feels much better today, Generalized weakness, no nausea vomiting appetite fair Finished breakfast this morning No complaint of shortness of breath no hypoxia no fever chills no cough Review of Systems Constitutional: + fatigue and + anorexia; no fever, no chills and no sweats Respiratory: no dyspnea, no hemoptysis and no wheezing Genitourinary: no dysuria and no hematuria Neurologic: + gait abnormality, + unsteadiness and + generalized weakness; no headache(s) and no abnormal speech Results & Data Vital Signs (Past 12 Hours) Vital Signs Temp Pulse Pulse Resp BP BP Pulse Ox 05/18/19 07:18 36.5 C 62 18 121/56 L 93 05/18/19 03:56 36.5 C 59 L 18 112/65 94 05/17/19 23:52 36.3 C L 62 18 121/58 L 97 05/17/19 23:00 63
[2019-05-18 10:51] LABS: Appearance Urine Cloudy (Clear); Bacteria Urine Automated Negative (Negative); Bilirubin Urine Negative (Negative); Blood Urine Negative (Negative); Color Urine Yellow; Glucose Urine UA Negative (Negative); Ketones Urine Negative (Negative); Leukocyte Esterase Urine Negative (Negative); Nitrite Urine Negative (Negative); Protein Urine Negative (Negative); RBC Urine Automated 0-4 /hpf (0-4); Specific Gravity Urine 1.017 (1.000-1.030); Urobilinogen Urine Negative (Negative)
[2019-05-18 15:01] LABS: BUN Creatinine Ratio 19.8 (10-20); Calcium 8.8 mg/dl (8.5-10.1); Creatinine Clr Calc Pharmacy 30.3 ml/min; Est GFR (African American) 55.4; Est GFR (Non-African American) 47.8
[2019-05-18] MEDS: MIRTAZAPINE SOLTAB 15 MG PO SCH (20:46)
[2019-05-19 06:54] LABS: BUN Creatinine Ratio 17.4 (10-20); Calcium 8.7 mg/dl (8.5-10.1); Creatinine Clr Calc Pharmacy 31.7 ml/min; Est GFR (African American) 58.5; Est GFR (Non-African American) 50.5; Potassium 4.4 mmol/L (3.5-5.1)
[2019-05-19] MEDS: AMIODARONE 200 MG TAB PO SCH (07:59)
[2019-05-19] MEDS: HEPARIN SOD 5,000 UNIT/0.5 ML VIAL SQ SCH ×2 (07:59→21:40)
[2019-05-19] MEDS: ASPIRIN 81 MG ECTAB PO SCH (07:59)
[2019-05-19] MEDS: ATORVASTATIN 10 MG TAB PO SCH (07:59)
[2019-05-19] MEDS: DOXAZosin MESYLATE TAB 2 MG TAB PO SCH (07:59)
[2019-05-19] MEDS: FLUTICASONE PROPIONATE NA SPR 16 GM BTL NAE SCH (07:59)
--- NOTE | 2019-05-19 10:35 | Hospitalist Progress Note ---
Date of Service May 19, 2019 Assessment & Plan (1) Weakness: Severe protein calorie malnutrition BMI 17,' Progressive loss of weight noted over last 15 months Spoke with patient's daughter Adilene phone number #[phone] Voiced concern regarding weight loss, lack of appetite Nutrition consult requested Presented with generalized weakness, dizzy spell, blurred vision, possible secondary to drug use, marijuana Patient was given a tablet by friend to increase appetite/patient experienced untoward side effects, nausea dizzy spell lightheadedness generalized weakness blurred vision afterward Urine tox screen positive for marijuana Symptom resolved No headache no blurred vision, no nausea Ordered for PT OT, fall precaution Hyponatremia: Acute on chronic hyponatremia, Outpatient diuretics kept on hold sodium level gradually improved Appreciate input from nephrology Acute renal failure on CKD stage III Stable secondary to prerenal/dehydration, poor p.o. intake Lasix and Aldactone kept on hold Patient given IV fluids Creatinine improved to baseline Dehydration orthostatic hypotension Possibly secondary to poor appetite poor p.o. intake Diuretics has been kept on hold since admission IV fluid bolus ordered by nephrology, continue maintenance IV fluids Monitor vital Telemetry monitoring (2) Severe malnutrition: Has been chronic, poor appetite, ongoing weight loss for past [address] abdomen pelvis, CT chest last admission for malignancy work-up, was negative for any mass or pathology Tumor markers were sent as well Did not had any recent colonoscopy Recommendation was given for outpatient colonoscopy to be scheduled, No dark or tarry stool - Consult motor racer - Heart-healthy diet - pt has been using Boost BID at home - continue while admitted pending motor racer recommendations (3) Chronic systolic heart failure: Volume status stable, was given IV fluids on admission for clinical dehydration IV fluid discontinued, patient is encouraged to increase p.o. intake of fluids (4) Hypertension: -Blood pressure remains stable Lasix and Aldactone kept on hold for acute renal failure hyponatremia (5) Dyslipidemia: (6) Nonischemic cardiomyopathy: Echo done during last admission earlier this month - calculated LVEF = 28% Volume status stable, diuretics on hold due to above (7) BPH (benign prostatic hyperplasia): - Continue doxazosin - pt reports stable symptoms on outpatient regimen CODE STATUS: Full code Disposition: Lives at home with , was independent in ADLs, Marked functional decline noted in recent weeks PT OT evaluation requested Social service consulted for discharge planning Subjective No complaint of chest pain or shortness of breath, says dizzy spell and l ightheadedness has improved somewhat, appetite remains poor, no cough no fever chills Review of Systems Review of Systems: All systems reviewed & are unremarkable except as noted in HPI & below Physical Exam Constitutional: + cachectic; no acute distress Eyes: + anicteric sclerae; no conjunctival abnormality ENMT: external ear and nose normal, oropharynx normal Neck: trachea midline Respiratory: normal respiratory effort, lungs clear to auscultation Auscultation: no rales, no rhonchi and no wheezes Cardiovascular: Rate/Rhythm: regular rate and regular rhythm Vessels: no carotid bruit Extremities: normal capillary refill; no pedal edema Gastrointestinal (Abdomen): Inspection/Auscultation: normal bowel sounds; abdomen not distended Percussion/Palpation: abdomen soft; abdomen nontender Musculoskeletal: Head/Neck/Chest: neck supple Extremities: + muscle atrophy; no cyanosis Skin: no rashes, warm and dry no jaundice Neurologic: moves all extremities; no focal motor deficits Speech / Cognition: normal speech Psychiatric: Orientation: alert Affect: + flat affect Results & Data Vital Signs (Past 12 Hours) Vital Signs Temp Pulse Pulse Resp BP BP Pulse Ox 05/19/19 10:00 62 05/19/19 08:00 36.6 C 57 L 18 114/52 L 94 05/19/19 03:40 36.5 C 66 18 144/68 H 96 05/19/19 02:48 66 05/18/19 23:37 36.4 C L 67 18 155/68 H 97
--- NOTE | 2019-05-19 12:40 | Nephrology Progress Note ---
Date of Service May 19, 2019 Assessment & Plan (1) CJ (acute kidney injury): Creatinine 1.2-1.3: Presenting creatinine 1.5; improved to baseline today. Not oliguric. urine studies c/w hypovolemia versus SIADH; no orthostatics on file -cont to hold lisinopril, though I suspect it has already been given today -Continue to hold Lasix and spironolactone Daily BMP Urinalysis with microscopy ordered -Continue NSAID avoidance (2) Acute hyponatremia: This is not acute hyponatremia; this is chronic hyponatremia (i.e., present greater than 48 hours). His sodium has recovered to prior chronic baseline of about 130. doubt a change like this is enough to cause his weakness prior to presentation. worse today slightly -for now no FR or low sodium diet : monitor; minimal po intake >>will give 250 mL NS today and cont to hold diuretic, CXR in am -with a clear CXR and PE w/o evidence of volume overload, favor hypovolemic hyponatremia at this point, though reset osmostat from low solute diet also a consideration; will ensure he's had orthostatic VS checked (3) Chronic systolic heart failure: On 20 mg daily Lasix as an outpatient as well as 25 mg daily spironolactone. Both of these are on hold appropriately. Monitor for need to restart; note also low sodium diet-did have plm edema/pl effusions as recently as february; cough noted however Subjective denies sob, n/v; ongoing poor po; no edema; ongoing generalized weakness and fatigue Review of Systems Review of Systems: All systems reviewed & are unremarkable except as noted in HPI & below Physical Exam Constitutional: well developed, + cachectic and cooperative; no acute distress (on ra) Eyes: EOM intact bilaterally ENMT: Ears: no external ear abnormality Nose: no external nose abnormality Mouth: + dry oral mucous membranes Neck: no nuchal rigidity Respiratory: normal respiratory effort and + cough (w/ some upper air way sounds) Auscultation: + diminished lung sounds Cardiovascular: RRR, no murmur, no edema Gastrointestinal (Abdomen): Inspection/Auscultation: normal bowel sounds Percussion/Palpation: abdomen soft; abdomen nontender Musculoskeletal: Extremities: strength 5/5 throughout Skin: no rashes, warm and dry + pallor Neurologic: awake maneuvers readily for exam Psychiatric: A+Ox3, euthymic affect Results & Data Vital Signs (Past 12 Hours) Vital Signs Temp Pulse Pulse Resp BP BP Pulse Ox 05/19/19 11:39 36.5 C 62 16 116/58 L 96 05/19/19 10:00 62 05/19/19 08:00 36.6 C 57 L 18 114/52 L 94 05/19/19 03:40 36.5 C 66 18 144/68 H 96 05/19/19 02:48 66 Laboratory Results 05/18/19 06:43 05/19/19 05:50
[2019-05-19] MEDS ORDERED: SODIUM CHLORIDE 0.9% 1000ML 250 ML IV ONE (12:54)
[2019-05-19] MEDS: MIRTAZAPINE SOLTAB 15 MG PO SCH (21:40)
[2019-05-20 00:01] LABS: Marijuana Quant, GCMS Urine 26 ng/mL (<5)
[2019-05-20 07:42] LABS: BUN Creatinine Ratio 21.6 (10-20); Calcium 8.9 mg/dl (8.5-10.1); Creatinine Clr Calc Pharmacy 35.9 ml/min; Est GFR (African American) 67.8; Est GFR (Non-African American) 58.5; Potassium 4.3 mmol/L (3.5-5.1)
[2019-05-20] MEDS: FLUTICASONE PROPIONATE NA SPR 16 GM BTL NAE SCH (08:41)
[2019-05-20] MEDS: ATORVASTATIN 10 MG TAB PO SCH (08:41)
[2019-05-20] MEDS: ASPIRIN 81 MG ECTAB PO SCH (08:41)
[2019-05-20] MEDS: HEPARIN SOD 5,000 UNIT/0.5 ML VIAL SQ SCH ×2 (08:41→20:36)
[2019-05-20] MEDS: DOXAZosin MESYLATE TAB 2 MG TAB PO SCH (08:41)
[2019-05-20] MEDS: AMIODARONE 200 MG TAB PO SCH (08:41)
[2019-05-20] MEDS ORDERED: SODIUM CHLORIDE 0.9% 1000ML 250 ML IV ONE (09:01)
--- NOTE | 2019-05-20 09:28 | Hospitalist Progress Note ---
Date of Service May 20, 2019 Assessment & Plan (1) Weakness: Orthostatic hypotension: Continues to have more than 30 mmHg drop of blood pressure from sitting to standing position Does not have any symptom Orthostatic blood pressure shows a significant drop of SBP from 126/68 sitting position to standing 86/50 Patient remains asymptomatic, no reflex tachycardia noted Patient was given IV fluid bolus yesterday by nephrology Discussed with nephrology, will ordered for another 250 mL of NSS bolus to be given in slow infusion (history of CHF with a EF less than 30%) Patient remains completely asymptomatic, no report of dizzy spell or lightheadedness on standing up Ordered to start patient on midodrine 2.5 mg p.o. 3 times daily Continue to monitor orthostatic vitals, Continue cardiac monitoring Severe protein calorie malnutrition BMI 17,' Progressive loss of weight noted over last 15 months Spoke with patient's daughter Adilene phone number #[phone] Voiced concern regarding weight loss, lack of appetite Nutrition consult requested Will order boost 3 times daily with every meal Presented with generalized weakness, dizzy spell, blurred vision, possible secondary to drug use, marijuana Patient was given a tablet by friend to increase appetite/patient experienced untoward side effects, nausea dizzy spell lightheadedness generalized weakness blurred vision afterward Urine tox screen positive for marijuana Symptom resolved No headache no blurred vision, no nausea Ordered for PT OT, fall precaution Hyponatremia: Acute on chronic hyponatremia, Outpatient diuretics kept on hold sodium level gradually improved 127-126 Appreciate input from nephrology Acute renal failure on CKD stage III Resolved, renal function to baseline Stable secondary to prerenal/dehydration, poor p.o. intake Lasix and Aldactone kept on hold Patient given IV fluids Creatinine improved to baseline (2) Severe malnutrition: Has been chronic, poor appetite, ongoing weight loss for past [address] abdomen pelvis, CT chest last admission for malignancy work-up, was negative for any mass or pathology Tumor markers were sent as well Did not had any recent colonoscopy Recommendation was given for outpatient colonoscopy to be scheduled, No dark or tarry stool - Consult aircraft pilot -We will liberalize heart healthy diet to regular - pt has been using Boost BID at home - continue while admitted pending aircraft pilot recommendations (3) Chronic systolic heart failure: Volume status stable, Small amount of IV fluid bolus for orthostatic vitals (4) Hypertension: Orthostatic drop in BP noted with change of position, Lasix and Aldactone kept on hold for acute renal failure hyponatremia (5) Dyslipidemia: (6) Nonischemic cardiomyopathy: Echo done during last admission earlier this month - calculated LVEF = 28% Volume status patient to be stable stable, diuretics on hold due to above (7) BPH (benign prostatic hyperplasia): -We will hold doxazosin which can contribute to orthostatic vitals as well Started on finasteride which does not have that much effect on blood pressure CODE STATUS: Full code Disposition: Lives at home with , was independent in ADLs, PT OT evaluation requested Social service consulted for discharge planning Subjective Patient had an uneventful night, Denies of any complaint of dizzy spell or lightheadedness: Was out of bed to the bathroom this morning No complaint of shortness of breath, no cough no chest heaviness no fever chills Review of Systems Constitutional: + anorexia; no fever, no chills and no sweats Eyes: no problem reported Neurologic: no gait abnormality, no unsteadiness, no generalized weakness, no headache(s) and no abnormal speech Physical Exam Constitutional: + cachectic; no acute distress Eyes: + anicteric sclerae; no conjunctival abnormality ENMT: external ear and nose normal, oropharynx normal Neck: trachea midline Respiratory: normal respiratory effort, lungs clear to auscultation Auscultation: no rales, no rhonchi and no wheezes Cardiovascular: Rate/Rhythm: regular rate and regular rhythm Vessels: no carotid bruit Extremities: normal capillary refill; no pedal edema Gastrointestinal (Abdomen): Inspection/Auscultation: normal bowel sounds; abdomen not distended Percussion/Palpation: abdomen soft; abdomen nontender Musculoskeletal: Head/Neck/Chest: neck supple Extremities: + muscle atrophy; no cyanosis Skin: no rashes, warm and dry no jaundice Neurologic: moves all extremities; no focal motor deficits Speech / Cognition: normal speech Psychiatric: Orientation: alert Affect: + flat affect Results & Data Vital Signs (Past 12 Hours) Vital Signs Temp Pulse Pulse Resp BP BP Pulse Ox 05/20/19 07:34 36.4 C L 59 L 18 121/53 L 95 05/20/19 04:00 36.5 C 59 L 18 121/46 L 05/20/19 03:58 37.1 C 76 20 126/68 90 05/20/19 00:00 62 05/19/19 23:12 36.4 C L 62 18 150/63 H 98
--- NOTE | 2019-05-20 09:36 | XRay Report ---
XR chest 1V portable CLINICAL HISTORY: cough, hx of HF>check volume COMPARISON STUDY: Chest CT May 07, 2019. Chest radiograph May 17, 2019. FINDINGS: There is emphysema. Calcified granulomas are noted. Cardiac size is normal. Mediastinal con tours are normal. No pneumothorax or pleural effusion is noted. No evidence for pulmonary edema. IMPRESSION: No acute cardiopulmonary findings. ACT 112: Negative or not required by law. Electronically signed by: Jan Dunham M.D. 05/20/2019 9:35 AM
[2019-05-20] MEDS: MIDODRINE HCL 2.5 MG TAB PO SCH ×3 (10:28→17:03)
--- NOTE | 2019-05-20 10:41 | Hospitalist Progress Note ---
Date of Service May 20, 2019 Subjective Attending addendum: Patient orthostatic vitals noted at 9:22 AM Blood pressure lyin/57 heart rate 62 Blood pressure sittin/51 heart rate 65 Blood pressure standin/41 heart rate 77 Marked orthostatic hypotension noted without reflex tachycardia arrhythmia,pt was not symptomatic at this time Doubt it is due to true volume depletion Continue to monitor in telemetry, started on midodrine/alpha-1 receptor for possible neurogenic orthostatic hypotension Michelle Tyson MD Results & Data Vital Signs (Past 12 Hours) Vital Signs Temp Pulse Pulse Resp BP BP Pulse Ox 05/20/19 09:00 67 05/20/19 07:34 36.4 C L 59 L 18 121/53 L 95 05/20/19 04:00 36.5 C 59 L 18 121/46 L 05/20/19 03:58 37.1 C 76 20 126/68 90 05/20/19 00:00 62 05/19/19 23:12 36.4 C L 62 18 150/63 H 98
--- NOTE | 2019-05-20 18:05 | Nephrology Progress Note ---
Date of Service May 20, 2019 Assessment & Plan (1) CJ (acute kidney injury): Creatinine 1.2-1.3: Presenting creatinine 1.5; improved to baseline. Not oliguric. urine studies c/w hypovolemia ; remains markedly orthostatic -cont to hold lisinopril, though I suspect it has already been given today -Continue to hold Lasix and spironolactone Daily BMP Urinalysis with microscopy ordered -Continue NSAID avoidance (2) Acute hyponatremia: This is not acute hyponatremia; this is chronic hyponatremia (i.e., present greater than 48 hours). His sodium recovered to prior chronic baseline of about 130, then dipped back to 126, improving w/ small fluids. doubt a change like this is enough to cause his weakness prior to presentation. worse today slightly -for now no FR or low sodium diet : monitor; minimal po intake >>will give 250 mL NS today again; since CXR remains clear, consider another 250 mL (3) Chronic systolic heart failure: On 20 mg daily Lasix as an outpatient as well as 25 mg daily spironolactone. Both of these are on hold appropriately. Monitor for need to restart; note also low sodium diet-did have plm edema/pl effusions as recently as february; cough noted however Subjective sen on rounds at 0830; still quite weak; no c/o pain; states already takes boost at home though forgets at times; denies sob; denies voiding c/o Review of Systems Review of Systems: All systems reviewed & are unremarkable except as noted in HPI & below Physical Exam Constitutional: well developed, + cachectic and cooperative; no acute distress (on ra) Eyes: EOM intact bilaterally ENMT: Ears: no external ear abnormality Nose: no external nose abnormality Mouth: + dry oral mucous membranes Neck: no nuchal rigidity Respiratory: normal respiratory effort Auscultation: + diminished lung sounds n o cough today Cardiovascular: RRR, no murmur, no edema Gastrointestinal (Abdomen): Inspection/Auscultation: normal bowel sounds Percussion/Palpation: abdomen soft; abdomen nontender Musculoskeletal: Extremities: strength 5/5 throughout Skin: no rashes, warm and dry + pallor Neurologic: awake Psychiatric: A+Ox3, euthymic affect Results & Data Vital Signs (Past 12 Hours) Vital Signs Temp Pulse Pulse Resp BP BP Pulse Ox 05/20/19 17:07 63 05/20/19 15:56 36.5 C 65 18 124/63 96 05/20/19 13:02 71 20 99/50 L 05/20/19 13:00 71 20 117/49 L 05/20/19 11:22 36.3 C L 63 20 114/47 L 98 05/20/19 09:00 67 05/20/19 07:34 36.4 C L 59 L 18 121/53 L 95 Laboratory Results 05/18/19 06:43 05/20/19 06:19
[2019-05-20] MEDS: MIRTAZAPINE SOLTAB 15 MG PO SCH (20:36)
[2019-05-20] MEDS: FINASTERIDE 5 MG TAB PO SCH (20:37)
[2019-05-21 07:06] LABS: BUN Creatinine Ratio 23.1 (10-20); Calcium 8.8 mg/dl (8.5-10.1); Creatinine Clr Calc Pharmacy 34.3 ml/min; Est GFR (African American) 64.4; Est GFR (Non-African American) 55.6; Potassium 4.3 mmol/L (3.5-5.1)
[2019-05-21] MEDS: MIDODRINE HCL 2.5 MG TAB PO SCH ×3 (07:53→16:55)
[2019-05-21] MEDS: AMIODARONE 200 MG TAB PO SCH (07:53)
[2019-05-21] MEDS: ASPIRIN 81 MG ECTAB PO SCH (07:54)
[2019-05-21] MEDS: HEPARIN SOD 5,000 UNIT/0.5 ML VIAL SQ SCH ×2 (07:54→20:00)
[2019-05-21] MEDS: FLUTICASONE PROPIONATE NA SPR 16 GM BTL NAE SCH (07:54)
[2019-05-21] MEDS: ATORVASTATIN 10 MG TAB PO SCH (07:54)
--- NOTE | 2019-05-21 10:12 | Hospitalist Progress Note ---
Date of Service May 21, 2019 Assessment & Plan (1) Weakness: Orthostatic hypotension: Continues to have more than 30 mmHg drop of blood pressure from sitting to standing position Does not have any symptom Ordered for fluid bolus, Patient remains completely asymptomatic, no report of dizzy spell or lightheadedness on standing up Started on midodrine 2.5 mg p.o. 3 times daily Continue to monitor orthostatic vitals, Continue cardiac monitoring Severe protein calorie malnutrition BMI 17,' Progressive loss of weight noted over last 15 months Spoke with patient's daughter Adilene phone number #[phone] Voiced concern regarding weight loss, lack of appetite Nutrition consult requested Follow-up scheduled with outpatient marketing rep Dr. Victoria Presented with generalized weakness, dizzy spell, blurred vision, possible secondary to drug use, marijuana Patient was given a tablet by friend to increase appetite/patient experienced untoward side effects, nausea dizzy spell lightheadedness generalized weakness blurred vision afterward Urine tox screen positive for marijuana Symptom resolved No headache no blurred vision, no nausea Ordered for PT OT, fall precaution Hyponatremia: Acute on chronic hyponatremia, Outpatient diuretics kept on hold sodium level gradually improved 127-126 Appreciate input from nephrology Acute renal failure on CKD stage III Resolved, renal function to baseline Stable secondary to prerenal/dehydration, poor p.o. intake Lasix and Aldactone kept on hold Patient given IV fluids Creatinine improved to baseline (2) Severe malnutrition: Has been chronic, poor appetite, ongoing weight loss for past [address] abdomen pelvis, CT chest last admission for malignancy work-up, was negative for any mass or pathology Tumor markers were sent as well Did not had any recent colonoscopy Recommendation was given for outpatient colonoscopy to be scheduled, No dark or tarry stool - Consult service order expediter -We will liberalize heart healthy diet to regular - pt has been using Boost BID at home - continue while admitted pending service order expediter recommendations (3) Chronic systolic heart failure: Volume status stable, Small amount of IV fluid bolus for orthostatic vitals (4) Hypertension: Orthostatic drop in BP noted with change of position, Lasix and Aldactone kept on hold for acute renal failure hyponatremia (5) Dyslipidemia: (6) Nonischemic cardiomyopathy: Echo done during last admission earlier this month - calculated LVEF = 28% Volume status patient to be stable stable, diuretics on hold due to above (7) BPH (benign prostatic hyperplasia): -We will hold doxazosin which can contribute to orthostatic vitals as well Started on finasteride which does not have that much effect on blood pressure CODE STATUS: Full code Disposition: Lives at home with , was independent in ADLs, PT OT evaluation requested Social service consulted for discharge planning Subjective Appetite remains poor, no cough no fever chills, generalized weakness Review of Systems Constitutional: + anorexia; no fever, no chills and no sweats Eyes: Transient blurry vision during dizziness this afternoon Physical Exam Constitutional: + cachectic; no acute distress Eyes: + anicteric sclerae; no conjunctival abnormality ENMT: external ear and nose normal, oropharynx normal Neck: trachea midline Respiratory: normal respiratory effort, lungs clear to auscultation Auscultation: no rales, no rhonchi and no wheezes Cardiovascular: Rate/Rhythm: regular rate and regular rhythm Vessels: no carotid bruit Extremities: normal capillary refill; no pedal edema Gastrointestinal (Abdomen): Inspection/Auscultation: normal bowel sounds; abdomen not distended Percussion/Palpation: abdomen soft; abdomen nontender Musculoskeletal: Head/Neck/Chest: neck supple Extremities: + muscle atrophy; no cyanosis Skin: no rashes, warm and dry no jaundice Neurologic: moves all extremities; no focal motor deficits Speech / Cognition: normal speech Psychiatric: Orientation: alert Affect: + flat affect Results & Data Vital Signs (Past 12 Hours) Vital Signs Temp Pulse Pulse Pulse Resp BP Pulse Ox 05/21/19 07:28 36.9 C 62 62 20 117/54 L 96 05/21/19 07:25 58 L 05/21/19 03:36 36.4 C L 64 16 109/56 L 96 05/21/19 00:41 67 05/20/19 23:58 36.4 C L 61 18 149/64 H 96
[2019-05-21] MEDS ORDERED: SODIUM CHLORIDE 0.9% 1000ML 250 ML IV ONE (17:38)
--- NOTE | 2019-05-21 17:38 | Nephrology Progress Note ---
Date of Service May 21, 2019 Assessment & Plan (1) CJ (acute kidney injury): Creatinine 1.2-1.3: Presenting creatinine 1.5; improved to baseline. Not oliguric. urine studies c/w hypovolemia ; remains markedly orthostatic as of 05/21 -cont to hold lisinopril -Continue to hold Lasix and spironolactone Daily BMP Urinalysis with microscopy >> cloudy but bland sediment -Continue NSAID avoidance (2) Acute hyponatremia: This is not acute hyponatremia; this is chronic hyponatremia (i.e., present greater than 48 hours). His sodium recovered to prior chronic baseline of about 130, then dipped back to 126, stable at 127. doubt a change like this is enough to cause his weakness prior to presentation. -for now no FR or low sodium diet : monitor; minimal po intake >>hold NS today and observe (3) Chronic systolic heart failure: On 20 mg daily Lasix as an outpatient as well as 25 mg daily fallon nolactone. Both of these are on hold appropriately. Monitor for need to restart; note also low sodium diet-did have plm edema/pl effusions as recently as february; cough noted however--pt states it is at chronic baseline -would recheck CXR on 05/23 if any concerns for vol OL given holding diuretics and giving IVF, sooner if resp status worsens (4) Orthostatic hypotension: started on midodrine low dose >>? if this requires specialized PT eval Present on Admission?: Yes Subjective no complaints this am when seen on rounds at 1015; ongoing fatigue, weakness, poor appetite; denies voiding concerns; states has been getting up to bathroom w/o sob Review of Systems Review of Systems: All systems reviewed & are unremarkable except as noted in HPI & below Physical Exam Constitutional: well developed, + cachectic, + frail appearing and cooperative; no acute distress (on ra) Eyes: EOM intact bilaterally ENMT: Ears: no external ear abnormality Nose: no external nose abnormality Mouth: + dry oral mucous membranes Neck: no nuchal rigidity Respiratory: normal respiratory effort Auscultation: + diminished lung sounds Cardiovascular: RRR, no murmur, no edema Gastrointestinal (Abdomen): Inspection/Auscultation: normal bowel sounds Percussion/Palpation: abdomen soft; abdomen nontender Musculoskeletal: Extremities: strength 5/5 throughout Skin: no rashes, warm and dry + pallor Neurologic: awake Psychiatric: A+Ox3, euthymic affect Results & Data Vital Signs (Past 12 Hours) Vital Signs Temp Pulse Pulse Pulse Resp BP Pulse Ox 05/21/19 16:36 65 05/21/19 15:34 36.4 C L 58 L 21 135/56 L 96 05/21/19 11:20 36.6 C 59 L 18 130/60 97 05/21/19 07:28 36.9 C 62 62 20 117/54 L 96 05/21/19 07:25 58 L Laboratory Results 05/18/19 06:43 05/21/19 05:54
[2019-05-21] MEDS: FINASTERIDE 5 MG TAB PO SCH (20:01)
[2019-05-21] MEDS: MIRTAZAPINE SOLTAB 15 MG PO SCH (20:01)
[2019-05-22] MEDS: ASPIRIN 81 MG ECTAB PO SCH (08:10)
[2019-05-22] MEDS: MIDODRINE HCL 2.5 MG TAB PO SCH ×3 (08:11→16:29)
[2019-05-22] MEDS: ATORVASTATIN 10 MG TAB PO SCH (08:11)
[2019-05-22] MEDS: FLUTICASONE PROPIONATE NA SPR 16 GM BTL NAE SCH (08:12)
[2019-05-22] MEDS: AMIODARONE 200 MG TAB PO SCH (08:12)
[2019-05-22] MEDS: HEPARIN SOD 5,000 UNIT/0.5 ML VIAL SQ SCH ×2 (08:13→20:12)
[2019-05-22 10:16] LABS: Hematocrit (blood only) 31.9 % (42-52); Mean Corpuscular Hemoglobin 33.5 pg (25-34); Mean Corpuscular Hgb Conc 34.5 g/dL (32-36); Mean Corpuscular Volume 97.3 fL (80-100); Mean Platelet Volume 9.9 fL (7.4-10.4); Platelet Count 205 K/uL (130-400); RDW Coefficient of Variation 12.6 % (11.5-14.5); RDW Standard Deviation 44.8 fL (36.4-46.3); Red Blood Count 3.28 M/uL (4.7-6.1); White Blood Count 6.82 K/uL (4.8-10.8)
[2019-05-22 10:39] LABS: Calcium 8.7 mg/dl (8.5-10.1); Creatinine Clr Calc Pharmacy 36.9 ml/min; Est GFR (African American) 70.8; Est GFR (Non-African American) 61.1; Potassium 4.3 mmol/L (3.5-5.1)
--- NOTE | 2019-05-22 17:46 | Hospitalist Progress Note ---
Date of Service May 22, 2019 Assessment & Plan (1) Hyponatremia: Improved to 130 but now back to 126 today. Appreciate Nephro input. (2) Orthostatic hypotension: started on midodrine this admission. Repeat orthostatics to ensure this has improved. (3) CJ (acute kidney injury): Resolved to baseline renal function. Lasix 20mg PO daily, lisinopril 40mg daily, spironolactone 25mg PO daily per home regimen continues to remain on hold. (4) Weakness: Generalized weakness on initial presentation possibly related to THC use in addition to ?dehydration from poor PO intake at baseline. Utox positive for marijuana and daughter very defensive. Seems clear this wasn't prescribed by a licensed professional. PT recommends returning home and patient feels back to baseline. (5) Severe malnutrition: chronic poor appetite. Considered marinol but after the reaction the patient had on arrival in response to a "THC capsule" and the daughter's very suspicious reaction, I will not offer this. Cont Remeron and continue with unrestricted diet. (6) Chronic systolic heart failure: chronic, stable. Examines as euvolemic. CXR clear on 05/20. Lungs clear to auscultation, and no dyspnea. ASA81, Lipitor per home regimen. Spironolactone, lisinopril. Toprol XL was stopped during last hospitalization 2/2 bradycardia. (7) Dyslipidemia: Cont Lipitor per home regimen. (8) BPH (benign prostatic hyperplasia): Doxazosin discontinued 2/2 orthostatic hypotention. Finasteride started this admission. (9) DVT prophylaxis: Heparin-declined by patient Full Code Dispo-pending improvement of sodium. Will discuss further with Nephrology in am. Yari Sarah DO [facility] Hospitalist Subjective 84 yo M presented with weakness and dehydration and was found to have hyponatremia. This has improved under the care of Nephrology. The patient has had a resolution of his acute symptoms back to baseline. He denies any improvement in appetite and denies any improvement in appetite on Remeron (home medication). Daughter was at bedside and notably became very defensive when I asked the patient who had given him the original THC supplement which ? was associated with new symptom onset prior to admission. She stated "It doesn't matter what he took or where he got it" and abruptly asked me to leave him alone while he was eating. When I returned, that patient was alone and was unable to offer further what he actually took. He states "my diagnosis is hyponatremia." Denies any pain or other issues today. Feels back to baseline in general. Review of Systems Review of Systems: All systems reviewed & are unremarkable except as noted in HPI & below Physical Exam Physical Exam: CONSTITUTIONAL: thin frail, elderly, vitals as above, generally well-appearing EYES: normal conjunctivae, no scleral icterus ENT: MMM RESPIRATORY: clear to auscultation bilaterally, no crackles, rales or wheezes, normal respiratory effort CARDIOVASCULAR: regular rate and rhythm, S1 and 2 heard without murmurs, gallops or rubs, no JVD, no peripheral edema GASTROINTESTINAL: soft, nontender, nondistended. MUSCULOSKELETAL: strength 5/5 throughout, head is normocephalic and atraumatic SKIN: warm and dry NEUROLOGIC: CN 2-12 grossly intact, normal cognition PSYCHIATRIC: alert and cooperative. Results & Data Vital Signs (Past 12 Hours) Vital Signs Temp Pulse Pulse Resp BP BP Pulse Ox 05/22/19 15:33 36.8 C 61 21 136/69 96 05/22/19 14:59 61 05/22/19 12:32 36.3 C L 61 20 134/57 L 97 05/22/19 10:06 56 L 05/22/19 07:37 36.7 C 63 20 123/53 L 94 Laboratory Results Short CBC 05/22/19 Range/Units 10:00 WBC 6.82 (4.8-10.8) K/uL Hgb 11.0 L (14.0-18.0) g/dL Hct 31.9 L (42-52) % Plt Count 205 (130-400) K/uL BMP 05/22/19 10:00 Sodium 126 L Potassium 4.3 Chloride 92 L Carbon Dioxide 29 BUN 21 H Creatinine 1.11 Glucose 135 H Calcium 8.7 Medications Administered Current Inpatient Medications Acetaminophen (Tylenol) 650 mg PO Q4H PRN PRN Reason: Pain or Fever Stop: 06/16/19 18:16 Amiodarone HCl (Cordarone) 200 mg PO [facility] Stop: 06/17/19 08:59 Last Admin: 05/22/19 08:12 Dose: 200 mg Documented by: Aspirin (Ecotrin Ectab) 81 mg PO [facility] Stop: 06/17/19 08:59 Last Admin: 05/22/19 08:10 Dose: 81 mg Documented by: Atorvastatin Calcium (Lipitor) 10 mg PO QAM [facility] Stop: 06/17/19 08:59 Last Admin: 05/22/19 08:11 Dose: 10 mg Documented by: Finasteride (Proscar) 5 mg PO [facility] Stop: 06/19/19 20:59 Last Admin: 05/21/19 20:01 Dose: 5 mg Documented by: Fluticasone Propionate (Flonase) 2 sprays LOR[place]INE DAILY [facility] Stop: 06/17/19 08:59 Last Admin: 05/22/19 08:12 Dose: 2 sprays Documented by: Heparin Sodium (Porcine) (Heparin Sodium (Porcine)) 5,000 units SQ Q12 [facility] Stop: 06/16/19 20:59 Last Admin: 05/22/19 08:13 Dose: Not Given Documented by: Midodrine (Proamatine) 2.5 mg PO TID@0800,1200,1700 [facility] Stop: 06/19/19 09:24 Last Admin: 05/22/19 16:29 Dose: 2.5 mg Documented by: Mirtazapine (Remeron Solutab) 45 mg PO [facility] Stop: 06/16/19 20:59 Last Admin: 05/21/19 20:01 Dose: 45 mg Documented by:
[2019-05-22] MEDS: FINASTERIDE 5 MG TAB PO SCH (20:12)
[2019-05-22] MEDS: MIRTAZAPINE SOLTAB 15 MG PO SCH (20:12)
[2019-05-23 07:44] LABS: BUN Creatinine Ratio 19.5 (10-20); Calcium 9.1 mg/dl (8.5-10.1); Creatinine Clr Calc Pharmacy 36.2 ml/min; Est GFR (African American) 69.3; Est GFR (Non-African American) 59.8; Potassium 4.1 mmol/L (3.5-5.1)
[2019-05-23] MEDS: ASPIRIN 81 MG ECTAB PO SCH (08:13)
[2019-05-23] MEDS: FLUTICASONE PROPIONATE NA SPR 16 GM BTL NAE SCH (08:13)
[2019-05-23] MEDS: MIDODRINE HCL 2.5 MG TAB PO SCH ×3 (08:13→17:54)
[2019-05-23] MEDS: AMIODARONE 200 MG TAB PO SCH (08:13)
[2019-05-23] MEDS: HEPARIN SOD 5,000 UNIT/0.5 ML VIAL SQ SCH ×2 (08:14→20:40)
[2019-05-23] MEDS: ATORVASTATIN 10 MG TAB PO SCH (08:14)
--- NOTE | 2019-05-23 09:02 | Nephrology Progress Note ---
Date of Service May 23, 2019 Assessment & Plan (1) Chronic hyponatremia: chronically at 130-131 as OP. Presenting Na 126. His sodium recovered to prior chronic baseline of about 130, then dipped back to 126-127 and stuck. doubt changes like this enough to cause his weakness prior to presentation. sodium in this range chronically however can contribute to ambulatory dysfunction. 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 no longer orthostatic on checks yesterday; recent admission for vol OL last month and significantly reduced EF 30% but he has been off of diuretics and actually had IVF and tolerated durig this entire admission -for possible d/c today to rehab >> recommend the following: --bmp weekly to come to me x 3 checks --resume HALF of admission/OP lasix dose and do not resume spironolactone --we will schedule f/u in CKD clinic in 3-4 wks; will recommend repeat orthostatics then; consider trial of urea; consider CXR to monitor volume on lower diuretics Care coordinated w/ Dr Caceres Present on Admission?: Yes (2) Chronic systolic heart failure: On 20 mg daily Lasix as an outpatient as well as 25 mg daily spironolactone. Both of these have been on hold appropriately but look to resume lasix as above. had EF 20-25% earlier this month -would recheck CXR if any concerns for vol OL given holding diuretics and giving IVF, sooner if resp status worsens>> so far no indication Present on Admission?: Yes (3) Orthostatic hypotension: started on midodrine low dose; would continue at d/c; orthostatics improved on 05/23 check >>? if this requires specialized PT eval Present on Admission?: Yes Subjective seen on afternoon rounds about 1445; no c/o. not sob including not when up to bathroom w/ asst. denies orthopnea; denies edema or chest pain. still struggles to maintain po. no pain; reports he ambulated in hallway w/ PT and felt tired but good Review of Systems Review of Systems: All systems reviewed & are unremarkable except as noted in HPI & below Physical Exam Constitutional: well developed, + cachectic, + frail appearing and cooperative; no acute distress (on ra) Eyes: EOM intact bilaterally ENMT: Ears: no external ear abnormality Nose: no external nose abnormality Mouth: + dry oral mucous membranes Neck: no nuchal rigidity Respiratory: normal respiratory effort Auscultation: + diminished lung sounds Cardiovascular: RRR, no murmur, no edema Gastrointestinal (Abdomen): Inspection/Auscultation: normal bowel sounds Percussion/Palpation: abdomen soft; abdomen nontender Musculoskeletal: Extremities: strength 5/5 throughout Skin: no rashes, warm and dry + pallor Neurologic: awake maenuvers w/ effort but independently for exam Psychiatric: A+Ox3, euthymic affect Genitourinary: no ríos Results & Data Vital Signs (Past 12 Hours) Vital Signs Temp Pulse Resp BP Pulse Ox 05/23/19 07:44 36.6 C 54 L 17 114/52 L 95 05/23/19 00:09 36.7 C 64 20 149/68 H 96 Laboratory Results 05/22/19 10:00 05/23/19 06:30
--- NOTE | 2019-05-23 09:15 | Hospitalist Progress Note ---
Date of Service May 23, 2019 Assessment & Plan (1) Hyponatremia: Improved to 130 but now back to 126 today. Nephrology following, appreciate their input (2) Orthostatic hypotension: started on midodrine this admission. Repeat orthostatics to ensure this has improved. (3) CJ (acute kidney injury): Resolved to baseline renal function. Lasix 20mg PO daily, lisinopril 40mg daily, spironolactone 25mg PO daily per home regimen- held during this admission. (4) Weakness: Generalized weakness on initial presentation possibly related to THC use in addition to ?dehydration from poor PO intake at baseline. Utox positive for marijuana, pt's daughter reportedly very defensive when asked about the source. Discussed with CM/office of aging. Recommend PT (5) Severe malnutrition: chronic poor appetite. Cont Remeron and continue with unrestricted diet. (6) Chronic systolic heart failure: chronic, stable. Examines as euvolemic. CXR clear on 05/20. Lungs clear to auscultation, and no dyspnea. ASA81, Lipitor per home regimen. Spironolactone, lisinopril, furosemide. Toprol XL was stopped during last hospitalization 2/2 bradycardia. (7) Dyslipidemia: Cont Lipitor per home regimen. (8) BPH (benign prostatic hyperplasia): Doxazosin discontinued 2/2 orthostatic hypotention. Finasteride started this admission. (9) DVT prophylaxis: Heparin-declined by patient Full Code Plan for inpt rehab - [facility] Subjective Patient lying in bed, in no acute distress, denies any fevers, chills, chest pain, shortness of breath, abdominal pain nausea vomiting. He says that he has been feeling weak and shaky for the past week. He also reports poor appetite, says that he is trying to eat more now. Review of Systems Review of Systems: All systems reviewed & are unremarkable except as noted in HPI & below Constitutional: + weakness; no fever and no chills poor appetite Respiratory: no cough and no dyspnea Cardiovascular: no chest pain, no palpitations and no edema Gastrointestinal: no abdominal pain, no nausea and no vomiting Physical Exam Physical Exam: CONSTITUTIONAL: thin frail, elderly male lying in bed, in NAD EYES: EOMI, PERRL, normal conjunctivae, no scleral icterus ENT: MMM, normal to inspection RESPIRATORY: clear to auscultation bilaterally, no crackles, rales or wheezes, normal respiratory effort CARDIOVASCULAR: regular rate and rhythm, S1 and 2 heard without murmurs, gallops or rubs, no JVD, no peripheral edema GASTROINTESTINAL: soft, nontender, nondistended, positive bowel sounds MUSCULOSKELETAL: strength 5/5 throughout, head is normocephalic and atraumatic SKIN: warm and dry NEUROLOGIC: CN 2-12 grossly intact, normal cognition PSYCHIATRIC: alert and cooperative. Results & Data ([facility]) Vital Signs (Past 12 Hours) Vital Signs Temp Pulse Resp BP Pulse Ox 05/23/19 07:44 36.6 C 54 L 17 114/52 L 95 05/23/19 00:09 36.7 C 64 20 149/68 H 96 Laboratory Results 05/23/19 05/22/19 05/22/19 Range/Units 06:30 10:00 10:00 WBC 6.82 (4.8-10.8) K/uL RBC 3.28 L (4.7-6.1) M/uL Hgb 11.0 L (14.0-18.0) g/dL Hct 31.9 L (42-52) % MCV 97.3 (80-100) fL MCH 33.5 (25-34) pg MCHC 34.5 (32-36) g/dL RDW Std Deviation 44.8 (36.4-46.3) fL RDW Coeff of Ty 12.6 (11.5-14.5) % Plt Count 205 (130-400) K/uL MPV 9.9 (7.4-10.4) fL Sodium 126 L 126 L (136-145) mmol/L Potassium 4.1 4.3 (3.5-5.1) mmol/L Chloride 92 L 92 L (98-107) mmol/L Carbon Dioxide 29 29 (21-32) mmol/L Anion Gap 5.0 4.0 (3-11) BUN 22 H 21 H (7-18) mg/dl Creatinine 1.13 1.11 (0.6-1.4) mg/dl Est Cr Clr Drug Dosing 36.2 36.9 ml/min Est GFR ( Amer) 69.3 70.8 Est GFR (Non-Af Amer) 59.8 61.1 BUN/Creatinine Ratio 19.5 19.0 (10-20) Glucose 83 135 H (70-99) mg/dl Calcium 9.1 8.7 (8.5-10.1) mg/dl Medications Administered Current Inpatient Medications Acetaminophen (Tylenol) 650 mg PO Q4H PRN PRN Reason: Pain or Fever Stop: 06/16/19 18:16 Amiodarone HCl (Cordarone) [address] [facility] Stop: 06/17/19 08:59 Last Admin: 05/23/19 08:13 Dose: 200 mg Documented by: Aspirin (Ecotrin Ectab) [address] [facility] Stop: 06/17/19 08:59 Last Admin: 05/23/19 08:13 Dose: 81 mg Documented by: Atorvastatin Calcium (Lipitor) [address] [facility] Stop: 06/17/19 08:59 Last Admin: 05/23/19 08:14 Dose: 10 mg Documented by: Finasteride (Proscar) 5 mg PO [facility] Stop: 06/19/19 20:59 Last Admin: 05/22/19 20:12 Dose: 5 mg Documented by: Fluticasone Propionate (Flonase) 2 sprays LORRAINE DAILY [facility] Stop: 06/17/19 08:59 Last Admin: 05/23/19 08:13 Dose: 2 sprays Documented by: Heparin Sodium (Porcine) (Heparin Sodium (Porcine)) 5,000 units SQ Q12 [facility] Stop: 06/16/19 20:59 Last Admin: 05/23/19 08:14 Dose: 5,000 units Documented by: Midodrine (Proamatine) 2.5 mg PO TID@0800,1200,1700 [facility] Stop: 06/19/19 09:24 Last Admin: 05/23/19 08:13 Dose: 2.5 mg Documented by: Mirtazapine (Remeron Solutab) 45 mg PO [facility] Stop: 06/16/19 20:59 Last Admin: 05/22/19 20:12 Dose: 45 mg Documented by:
[2019-05-23 13:27] LABS: BUN Creatinine Ratio 21.2 (10-20); Calcium 8.7 mg/dl (8.5-10.1); Est GFR (African American) 66.4; Est GFR (Non-African American) 57.3; Potassium 4.3 mmol/L (3.5-5.1)
[2019-05-23] MEDS: MIRTAZAPINE SOLTAB 15 MG PO SCH (20:40)
[2019-05-23] MEDS: FINASTERIDE 5 MG TAB PO SCH (20:40)
[2019-05-24 06:24] LABS: Calcium 9.1 mg/dl (8.5-10.1); Creatinine Clr Calc Pharmacy 33.3 ml/min; Est GFR (African American) 62.5; Potassium 4.4 mmol/L (3.5-5.1)
[2019-05-24 06:25] LABS: Phosphorus 3.1 mg/dl (2.5-4.9)
[2019-05-24] MEDS: MIDODRINE HCL 2.5 MG TAB PO SCH ×3 (07:37→16:18)
[2019-05-24] MEDS: AMIODARONE 200 MG TAB PO SCH (08:56)
[2019-05-24] MEDS: ATORVASTATIN 10 MG TAB PO SCH (08:56)
[2019-05-24] MEDS: ASPIRIN 81 MG ECTAB PO SCH (08:56)
[2019-05-24] MEDS: FLUTICASONE PROPIONATE NA SPR 16 GM BTL NAE SCH (08:56)
[2019-05-24] MEDS: HEPARIN SOD 5,000 UNIT/0.5 ML VIAL SQ SCH (09:00)
--- NOTE | 2019-05-24 17:15 | Discharge Summary ---
Date of Service May 24, 2019 Admission HPI Per Admitting Provider 84 y/o male who presents with weakness and instability x 1 day. This AM took routine medications and apparently felt at baseline. Decided to try an unknown capsule with "brown stuff" in it that a friend gave him to help with his appetite - he took this late morning. He reports starting to feel worse about an hour later with unsteadiness when standing and generalized weakness. Associated dizziness and blurry vision. At one point this afternoon, he reports that symptoms were so severe he couldn't walk at all without support. [place] a "slight haziness" but denies pain anywhere. No fevers, chills, nausea vomiting, abd pain, diarrhea, constipation, MORENO, CP, SOB. +cough for "quite a while" - productive of yellow mucus. Currently feels about the same as when he arrived - symptoms don't seem to be improving with time. No dysuria or difficulties with urination. Only urinary frequency related to diuretics. Pt somewhat of a difficult historian - reports he gets confused at times. Chart extensively reviewed. Multiple admissions over the past six months including: Initially biventricular pacemaker/AICD placed 11/21/[address] Zamorano. Admitted 01/11- [facility] secondary to suspected pacemaker infection, later transferred to [facility] which she had pacer/AICD removed on 01/14 and treated with antibiotics, culture grew Pseudomonas. Admitted 02/04 to 02/07/2019 secondary to hospital-acquired pneumonia. Admitted 02/10 to 02/11 secondary to acute on chronic systolic CHF treated with diuresis. Admitted 05/03 to 05/08/19 secondary to pleural effusion and acute on chronic CHF. Toprol XL discontinued, Lasix adjusted. W/u for ?malignancy due to wt loss negative - to see credit underwriter outpt for severe PCM Admission Exam Per Admitting Provider onstitutional: + cachectic; no acute distress Eyes: + anicteric sclerae; no conjunctival abnormality ENMT: external ear and nose normal, oropharynx normal Neck: trachea midline Respiratory: normal respiratory effort, lungs clear to auscultation Auscultation: no rales, no rhonchi and no wheezes Cardiovascular: Rate/Rhythm: regular rate and regular rhythm Vessels: no carotid bruit Extremities: normal capillary refill; no pedal edema Gastrointestinal (Abdomen): Inspection/Auscultation: normal bowel sounds; abdomen not distended Percussion/Palpation: abdomen soft; abdomen nontender Musculoskeletal: Head/Neck/Chest: neck supple Extremities: + muscle atrophy; no cyanosis Skin: no rashes, warm and dry no jaundice Neurologic: moves all extremities; no focal motor deficits Speech / Cognition: normal speech Psychiatric: Orientation: alert Affect: + flat affect Principal Diagnosis Hyponatremia, CJ, Severe malnutrition Discharge Exam CONSTITUTIONAL: thin frail, elderly male sitting up in the bed, in NAD EYES: EOMI, PERRL, normal conjunctivae, no scleral icterus ENT: MMM, normal to inspection RESPIRATORY: clear to auscultation bilaterally, no crackles, rales or wheezes, normal respiratory effort CARDIOVASCULAR: regular rate and rhythm, S1 and 2 heard without murmurs, gallops or rubs, no JVD, no peripheral edema GASTROINTESTINAL: soft, nontender, nondistended. MUSCULOSKELETAL: strength 5/5 throughout, head is normocephalic and atraumatic SKIN: warm and dry NEUROLOGIC: CN 2-12 grossly intact, normal cognition PSYCHIATRIC: alert and cooperative. Discharge Data Allergies Allergy/AdvReac Type Severity Reaction Status Date / Time No Known Allergies Allergy Unknown Verified 05/03/19 10:38 Consultations 05/17/19 14:59 ED Decision to Admit Stat 05/17/19 18:17 Consult Nephrology Routine Ordered Studies 05/17/19 13:46 CT head/brain wo con Stat Hospital Course (1) Hyponatremia: Improved to 130 but now back to 126 today. Nephrology following. Recommend to obtain BMP weekly x3, starting this Monday (05/27/2019). Results should be send to nephrology office (Dr. Hart). Pt will need to follow up with them, they will arrange the appointment. (2) Orthostatic hypotension: started on midodrine this admission. Repeat orthostatics to ensure this has improved. (3) CJ (acute kidney injury): Resolved to baseline renal function. Lasix 20mg PO daily, lisinopril 40mg daily, spironolactone 25mg PO daily per home regimen- held during this admission. Per nephro, can restart furosemide at half a dose (10 mg daily). (4) Weakness: Generalized weakness on initial presentation possibly related to THC use in addition to ?dehydration from poor PO intake at baseline. Utox positive for marijuana, pt's daughter reportedly very defensive when asked about the source. Recommend PT (5) Severe malnutrition: chronic poor appetite. Cont Remeron and continue with unrestricted diet. (6) Chronic systolic heart failure: chronic, stable. Examines as euvolemic. CXR clear on 05/20. Lungs clear to auscultation, and no dyspnea. ASA81, Lipitor per home regimen. Spironolactone, lisinopril, furosemide. Toprol XL was stopped during last hospitalization 2/2 bradycardia. Per nephro recommendations, continue to hold spironolactone, only resume furosemide at 10 mg a day (7) Dyslipidemia: Cont Lipitor per home regimen. (8) BPH (benign prostatic hyperplasia): Doxazosin discontinued 2/2 orthostatic hypotention. Finasteride started this admission. (9) DVT prophylaxis: Heparin-declined by patient Full Code Plan for inpt rehab - [facility] Total Time Total Time Spent Total Time Spent (In Minutes): 35 Total Time Includes: Examination of the Patient, Discharge Planning, Medication Reconciliation and Communication With Other Providers Discharge Plan Discharge Items Patient Disposition: Transfer Inpatient Rehab Fac Reason For Visit: CJ,HYPONATREMIA Discharge Diagnosis: Hyponatremia, CJ, Severe malnutrition Activity: Resume your previous activity Activity Comment: as tolerated / per PT Non-emergency contact: Primary Care Provider and Home Theater Specialist Call non-emergency contact if: you have any medication questions and your symptoms worsen Follow-up/Referrals: Taylor Lopez DO [Primary Care Provider] - Diet: Regular Fluids: 1500ml (6 cups) Addtl Attending Provider Instructions: You will need blood work (BMP) every week, starting this Monday to monitor your sodium level and kidney function. Results need to be sent to nephrology office (Dr. Vivi Hart). You will need to follow up with nephrology in couple of weeks, their office will contact you about the appointment. You need to follow up with primary care provider within 1 week as well. Your medications will need to be reviewed as there were several changes made during your admission here. Pending Studies at Discharge: No Stand-Alone Forms: My [place] Skilled Items Patient informed of condition?: Yes DNR: No Discharge Level of Care: Acute rehab Communicable Disease: No Discharge Prognosis: Stable Lines: None Urinary Catheter: No Medications and DC Order Prescriptions: New midodrine 2.5 mg Tablet 2.5 mg PO TID@0800,1200,1700 10 Days Qty: 30 RF: 0 finasteride [Proscar] 5 mg Tablet 5 mg PO HS 30 Days Qty: 30 RF: 0 Continued atorvastatin 10 mg tablet 10 mg PO QAM RF: 0 aspirin 81 mg Tablet,Delayed Release (Dr/Ec) 81 mg PO QAM RF: 0 mirtazapine 45 mg tablet 45 mg PO HS RF: 0 fluticasone propionate 50 mcg/actuation spray,suspension 2 spray intranasal DAILY RF: 0 amiodarone 200 mg tablet 200 mg PO QAM RF: 0 Changed furosemide 20 mg Tablet 10 mg PO QAM 30 Days Qty: 30 RF: 3 Discontinued lisinopril 40 mg tablet 40 mg PO QAM RF: 0 doxazosin 2 mg tablet 2 mg PO QAM RF: 0 spironolactone 25 mg Tablet 25 mg PO QAM 30 Days Qty: 30 RF: 3 Discharge Orders: Discharge Order (Routine); Ordered 05/24/19 Ordered By: Mukul Caceres Admission Data Admit Date/Time: 05/17/19 15:50 Attending Provider: Mukul Caceres Admit Provider: Lise Arzate I. Primary Care Provider: Taylor Lopez Other Providers: [facility] ; Lise Arzate I. ; Vivi Hart ; Yari Sarah ; [facility]
== END 2019-05-24 18:50 | DRG 682 ==
LOC: ED 13:16 → 2S 15:50 → SUATTDRO 15:50 → 2S 18:13 → 2N 05-18 12:52

== ENCOUNTER 2019-08-06 11:13 | Inpatient (IN) ==
[2019-08-06] MEDS ORDERED: ONDANSETRON INJ 2 MG/ML 2 ML VIAL IV STA (12:16)
[2019-08-06 12:59] LABS: Basophils # (auto) 0.04 K/uL (0-0.2); Basophils % (auto) 0.4 %; Eosinophils # (auto) 0.06 K/uL (0-0.5); Eosinophils % (auto) 0.6 %; Hematocrit (blood only) 39.3 % (42-52); Hemoglobin 13.3 g/dL (14.0-18.0); Immature Granulocytes # (auto) 0.03 K/uL (0.00-0.02); Immature Granulocytes % (auto) 0.3 %; Lymphocytes # (auto) 0.82 K/uL (1.2-3.4); Lymphocytes % (auto) 7.8 %; Mean Corpuscular Hemoglobin 33.8 pg (25-34); Mean Corpuscular Hgb Conc 33.8 g/dL (32-36); Mean Corpuscular Volume 99.7 fL (80-100); Mean Platelet Volume 10.8 fL (7.4-10.4); Monocytes # (auto) 0.79 K/uL (0.11-0.59); Monocytes % (auto) 7.5 %; Neutrophils # (auto) 8.74 K/uL (1.4-6.5); Neutrophils % (auto) 83.4 %; Platelet Count 194 K/uL (130-400); RDW Coefficient of Variation 13.3 % (11.5-14.5); RDW Standard Deviation 48.3 fL (36.4-46.3); Red Blood Count 3.94 M/uL (4.7-6.1); White Blood Count 10.48 K/uL (4.8-10.8)
[2019-08-06 13:11] LABS: INR 1.1 (0.9-1.1); Partial Thromboplastin Time 27.1 Seconds (21.0-31.0); Prothrombin Time 11.7 Seconds (9.0-12.0)
--- NOTE | 2019-08-06 13:14 | XRay Report ---
SINGLE VIEW CHEST CLINICAL HISTORY: Dyspnea. FINDINGS: 2 AP, portable, upright chest radiographs are compared to study dated 08/02/2019 and correla waldo with chest CT dated 05/07/2019. The examination is degraded by portable technique and patient rota tion. The heart is enlarged noting atherosclerotic calcification of the thoracic aorta. There is pulm onary vascular congestion and interstitial edema. There are layering pleural effusions with bibasilar consolidation. No pneumothorax is seen. The skeletal structures are osteopenic. The bony thorax is g rossly intact. IMPRESSION: 1. Cardiomegaly with evidence of congestive failure and interstitial edema. 2. Layering pleural effusions with bibasilar consolidation. ACT 112: Negative or not required by law. Electronically signed by: Dustin Rosales M.D. 08/06/2019 1:13 PM
[2019-08-06 13:20] LABS: Albumin Level 3.4 gm/dl (3.4-5.0); BUN Creatinine Ratio 13.4 (10-20); Calcium 9.5 mg/dl (8.5-10.1); Creatinine Clr Calc Pharmacy 41.4 ml/min; Est GFR (African American) 70.8; Est GFR (Non-African American) 61.1; Potassium 3.5 mmol/L (3.5-5.1)
[2019-08-06 13:38] LABS: Albumin Globulin Ratio 0.8 (0.9-2); Globulin 4.3 gm/dl (2.5-4.0); Total Protein 7.7 gm/dl (6.4-8.2); Troponin I 0.07 ng/ml (0-0.045)
[2019-08-06] MEDS ORDERED: FUROSEMIDE 40 MG/4 ML VIAL IV STA (13:41)
[2019-08-06] MEDS ORDERED: ASPIRIN CHEW 324 MG PO STA (13:41)
--- NOTE | 2019-08-06 14:44 | Emergency Department Note ---
History of Present Illness General Chief complaint: Shortness of Breath/Dyspnea Stated complaint: SOB Source: patient and RN notes reviewed Mode of arrival: ambulatory Limitations: no limitations History of Present Illness Provider complaint: Shortness of breath Onset (ago): hour(s) 2 Location: chest Severity: moderate Maximum Pain Intensity: 0 Relieved By: + rest Exacerbated By: + movement Associated symptoms: + nausea/vomiting and + other (Palpitations) This patient is an 84-year-old male who presents to the emergency department with complaints of shortness of breath. Patient states he has been treated in the emergency department twice this month for similar symptoms. He was placed on an antibiotic as well as Lasix. Patient also complains of some nausea and blames this on his medications. He states his heart rate was going fast today a s well. Patient denies any fevers, chest pain, vomiting or diarrhea. He denies any recent COVID exposures. Home Medications Home Medications Medication Instructions Recorded Confirmed Type aspirin 81 mg PO QAM 10/27/18 08/06/19 History atorvastatin 10 mg PO QAM 10/27/18 08/06/19 History mirtazapine 45 mg PO HS 10/27/18 08/06/19 History amiodarone 200 mg PO QAM 11/15/18 08/06/19 History midodrine 2.5 mg tablet 2.5 mg PO BID 06/13/19 08/06/19 History polyethylene glycol 3350 17 17 gm PO DAILY PRN 06/13/19 08/06/19 History gram/dose oral powder tamsulosin 0.4 mg capsule 0.4 mg PO HS 06/13/19 08/06/19 History finasteride 5 mg PO HS 07/31/19 08/06/19 History hydrocortisone 2.5 mg PO BID 07/31/19 08/06/19 History doxycycline hyclate 100 mg PO BID 7 Days #14 cap 08/02/19 08/06/19 Rx furosemide 20 mg PO QAM 08/06/19 08/06/19 History Allergies Allergy/AdvReac Type Severity Reaction Status Date / Time No Known Allergies Allergy Unknown Verified 08/06/19 14:10 Past Med/Surg History Medical History 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 Underwent procedure without any complications; monitored overnight and discharged home. 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 Beliefs That Will Affect Care: None marital status: Current Living Situation: Spouse Current Living Situation Comment: [facility] current occupational status: retired Other Information That Helps Us Care for You: No Feels Safe at Home: Yes Safety Concerns: Feels Safe At This Time Smoking Status: Former smoker Tobacco Type: cigarettes ; Years Smoked: 50 ; Do You Dip or Chew Tobacco: No ; Number of Years Since Quit: 3 ; Second Hand Exposure: No ; Tobacco Cessation Education Requested by Patient: No Hx Alcohol Use: No Hx Substance Use: No Review of Systems See HPI for pertinent positives & negatives. and A total of 10 systems reviewed and were otherwise negative Physical Exam Vital Signs Vital Signs - 24 hr 08/06/19 11:15 08/06/19 12:13 08/06/19 12:16 Temperature 36.3 C L Temperature Source Oral Pulse Rate 88 Pulse Rate from SpO2 Sensor Respiratory Rate 20 Respiratory Effort / Characteristics Non-Labored Non-Labored Respiratory Depth Normal Blood Pressure 171/82 H Blood Pressure Mean 111 Pulse Oximetry 92 93 Oxygen Delivery Method Room Air Room Air Room Air Oxygen Flow Rate Sepsis Recent Fever Within 48 Hours No Sepsis Action Taken by Nursing No Action Required Oxygen Flow Rate - Titration Pulse Oximetry Post Tiitration 08/06/19 12:30 08/06/19 13:04 08/06/19 13:05 Temperature Temperature Source Pulse Rate 72 73 Pulse Rate from SpO2 Sensor 72 74 Respiratory Rate 21 21 Respiratory Effort / Characteristics Respiratory Depth Blood Pressure 153/78 H 153/84 H Blood Pressure Mean 108 113 Pulse Oximetry 93 93 94 Oxygen Delivery Method Room Air Oxygen Flow Rate Sepsis Recent Fever Within 48 Hours Sepsis Action Taken by Nursing Oxygen Flow Rate - Titration Pulse Oximetry Post Tiitration 08/06/19 13:44 08/06/19 14:00 Temperature Temperature Source Pulse Rate 69 Pulse Rate from SpO2 Sensor 70 Respiratory Rate 17 Respiratory Effort / Characteristics Respiratory Depth Blood Pressure 141/96 H Blood Pressure Mean 115 Pulse Oximetry 88 L 100 Oxygen Delivery Method Room Air Nasal Cannula Oxygen Flow Rate 2 Sepsis Recent Fever Within 48 Hours Sepsis Action Taken by Nursing Oxygen Flow Rate - Titration 2 Pulse Oximetry Post Tiitration 96 Vital signs reviewed. General: Well-appearing 84-year-old male, in no significant distress. HEENT: No scleral icterus, PERRLA, neck supple. Atraumatic. Cardiovascular: Regular rate and rhythm, no extra sounds. Pulmonary: Clear to auscultation bilaterally, normal work of breathing. Abdomen: Soft, nontender, nondistended, positive bowel sounds. Musculoskeletal: Atraumatic, no peripheral edema. Neurologic: Patient awake alert and oriented x 3 Skin: Warm, dry, no rash Course Administered Medications Amiodarone HCl (Cordarone) 200 mg PO [facility] Stop: 09/06/19 08:59 Last Admin: 08/08/19 07:50 Dose: 200 mg Documented by: [id number] Admin: 08/07/19 09:14 Dose: 200 mg Documented by: [id number] Amlodipine Besylate (Norvasc) 2.5 mg PO [facility] Stop: 09/05/19 16:29 Last Admin: 08/08/19 07:49 Dose: 2.5 mg Documented by: [id number] Admin: 08/07/19 09:14 Dose: 2.5 mg Documented by: [id number] Admin: 08/06/19 16:57 Dose: 2.5 mg Documented by: [id number] Aspirin (Ecotrin Ectab) 81 mg PO QAM [facility] Stop: 09/06/19 08:59 Last Admin: 08/08/19 07:50 Dose: 81 mg Documented by: [id number] Admin: 08/07/19 09:10 Dose: 81 mg Documented by: [id number] Atorvastatin Calcium (Lipitor) 10 mg PO QAM [facility] Stop: 09/06/19 08:59 Last Admin: 08/08/19 07:49 Dose: 10 mg Documented by: [id number] Admin: 08/07/19 09:10 Dose: 10 mg Documented by: [id number] Benzonatate (Tessalon Perle) 100 mg PO TID [facility] Stop: 09/05/19 20:59 Last Admin: 08/08/19 21:33 Dose: 100 mg Documented by: [id number] Admin: 08/08/19 14:33 Dose: 100 mg Documented by: [id number] Admin: 08/08/19 07:49 Dose: 100 mg Documented by: [id number] Admin: 08/07/19 20:04 Dose: 100 mg Documented by: [id number] Admin: 08/07/19 13:36 Dose: 100 mg Documented by: [id number] Admin: 08/07/19 09:10 Dose: 100 mg Documented by: [id number] Admin: 08/06/19 20:19 Dose: 100 mg Documented by: [id number] Doxycycline Hyclate (Vibramycin) 100 mg PO BID [facility] Stop: 08/13/19 20:59 Last Admin: 08/08/19 21:34 Dose: 100 mg Documented by: [id number] Admin: 08/08/19 07:50 Dose: 100 mg Documented by: [id number] Admin: 08/07/19 20:03 Dose: 100 mg Documented by: [id number] Admin: 08/07/19 09:10 Dose: 100 mg Documented by: [id number] Admin: 08/06/19 20:19 Dose: 100 mg Documented by: [id number] Finasteride (Proscar) 5 mg PO HS [facility] Stop: 09/05/19 20:59 Last Admin: 08/08/19 21:33 Dose: 5 mg Documented by: [id number] Admin: 08/07/19 20:04 Dose: 5 mg Documented by: [id number] Admin: 08/06/19 20:19 Dose: 5 mg Documented by: [id number] Furosemide 20 mg/ Syringe 2 mls @ 4 mls/min IV BID17 [facility] Stop: 09/06/19 08:59 Last Admin: 08/07/19 09:15 Dose: 4 mls/min Documented by: [id number] Mirtazapine (Remeron Solutab) 45 mg PO [facility] Stop: 09/05/19 20:59 Last Admin: 08/08/19 21:34 Dose: 45 mg Documented by: [id number] Admin: 08/07/19 20:03 Dose: 45 mg Documented by: [id number] Admin: 08/06/19 20:19 Dose: 45 mg Documented by: [id number] Polyethylene Glycol (Miralax Powder Packet) 17 gm PO DAILY PRN PRN Reason: Constipation Stop: 09/05/19 15:58 Last Admin: 08/08/19 21:19 Dose: 17 gm Documented by: [id number] Tamsulosin HCl (Flomax) 0.4 mg PO [facility] Stop: 09/05/19 20:59 Last Admin: 08/08/19 21:33 Dose: 0.4 mg Documented by: [id number] Admin: 08/07/19 20:20 Dose: 0.4 mg Documented by: [id number] Admin: 08/06/19 20:19 Dose: 0.4 mg Documented by: [id number] Discontinued Medications Albuterol (Duoneb) 3 ml NEB NOW STA Stop: 08/06/19 15:32 Last Admin: 08/06/19 21:39 Dose: Not Given Documented by: [id number] Albuterol (Duoneb) 3 ml NEB QIDR [facility] Stop: 09/05/19 16:14 Last Admin: 08/07/19 15:08 Dose: 3 ml Documented by: [id number] Admin: 08/07/19 11:21 Dose: 3 ml Documented by: [id number] Admin: 08/07/19 07:02 Dose: 3 ml Documented by: [id number] Admin: 08/06/19 19:13 Dose: 3 ml Documented by: [id number] Admin: 08/06/19 16:32 Dose: 3 ml Documented by: [id number] Aspirin (Aspirin) 324 mg PO NOW STA Stop: 08/06/19 13:42 Last Admin: 08/06/19 14:05 Dose: 324 mg Documented by: [id number] Bisacodyl (Dulcolax) 10 mg OH NOW STA Stop: 08/08/19 08:03 Last Admin: 08/08/19 08:16 Dose: 10 mg Documented by: [id number] Enoxaparin Sodium (Lovenox) 40 mg SQ Q24H [facility] Stop: 09/05/19 20:59 Last Admin: 08/06/19 20:18 Dose: 40 mg Documented by: [id number] Furosemide (Lasix) 40 mg IV NOW STA Stop: 08/06/19 13:42 Last Admin: 08/06/19 14:05 Dose: 40 mg Documented by: [id number] Hydrocortisone (Cortef) 2.5 mg PO BID [facility] Stop: 09/05/19 20:59 Last Admin: 08/08/19 07:48 Dose: 2.5 mg Documented by: [id number] Admin: 08/07/19 20:03 Dose: 2.5 mg Documented by: [id number] Admin: 08/07/19 09:10 Dose: 2.5 mg Documented by: [id number] Admin: 08/06/19 20:18 Dose: 2.5 mg Documented by: [id number] Methylprednisolone 40 mg/ (Syringe) 0.64 mls @ 1.5 mls/min IV DAILY [facility] Stop: 09/06/19 08:59 Last Admin: 08/07/19 09:10 Dose: 1.5 mls/min Documented by: [id number] Methylprednisolone (Solumedrol) 40 mg IV DAILY [facility] Stop: 09/05/19 14:39 Last Admin: 08/06/19 15:03 Dose: 40 mg Documented by: [id number] Midodrine (Proamatine) 2.5 mg PO BID@0800,1400 [facility] Stop: 09/05/19 16:29 Last Admin: 08/06/19 17:34 Dose: Not Given Documented by: [id number] Ondansetron HCl (Zofran) 4 mg IV NOW STA Stop: 08/06/19 12:17 Last Admin: 08/06/19 13:04 Dose: 4 mg Documented by: [id number] Potassium Chloride (Klor-Con M20) 40 meq PO NOW STA Stop: 08/06/19 16:00 Last Admin: 08/06/19 16:57 Dose: 40 meq Documented by: [id number] Prednisone (Prednisone) 20 mg PO DAILY [facility] Stop: 09/07/19 08:59 Last Admin: 08/08/19 07:49 Dose: 20 mg Documented by: [id number] Sodium Chloride (Sodium Chloride) 1 gm PO BIDM [facility] Stop: 09/05/19 16:59 Last Admin: 08/08/19 07:50 Dose: 1 gm Documented by: [id number] Admin: 08/07/19 16:39 Dose: 1 gm Documented by: [id number] Admin: 08/07/19 09:09 Dose: 1 gm Documented by: [id number] Admin: 08/06/19 16:57 Dose: 1 gm Documented by: [id number] Medical Decision Making Differential Diagnosis Differential diagnosis: Etiologies such as infections, reactive airway disease, COPD, pneumonia, pleural effusion, pulmonary edema, ARDS, pneumothorax, CHF, cardiac ischemia, cardiac tamponade, dysrhythmia, anemia, pulmonary embolism, musculoskeletal, gastro intestinal process, as well as others were entertained. Medical Records Attestation: I reviewed the patient's medical records. Home Medications Current Medication List: was personally reviewed by me Laboratory Data Attestation: I reviewed the patient's lab results. Result diagrams: 08/07/19 07:22 08/09/19 05:37 Lab Results 08/06/19 08/06/19 08/06/19 Range/Units 12:41 12:41 12:41 WBC 10.48 (4.8-10.8) K/uL RBC 3.94 L (4.7-6.1) M/uL Hgb 13.3 L (14.0-18.0) g/dL Hct 39.3 L (42-52) % MCV 99.7 (80-100) fL MCH 33.8 (25-34) pg MCHC 33.8 (32-36) g/dL RDW Std Deviation 48.3 H (36.4-46.3) fL RDW Coeff of Ty 13.3 (11.5-14.5) % Plt Count 194 (130-400) K/uL MPV 10.8 H (7.4-10.4) fL Immature Gran % (Auto) 0.3 % Neut % (Auto) 83.4 % Lymph % (Auto) 7.8 % Toole % (Auto) 7.5 % Eos % (Auto) 0.6 % Baso % (Auto) 0.4 % Immature Gran # (Auto) 0.03 H (0.00-0.02) K/uL Neut # (Auto) 8.74 H (1.4-6.5) K/uL Lymph # (Auto) 0.82 L (1.2-3.4) K/uL Toole # (Auto) 0.79 H (0.11-0.59) K/uL Eos # (Auto) 0.06 (0-0.5) K/uL Baso # (Auto) 0.04 (0-0.2) K/uL PT 11.7 (9.0-12.0) Seconds INR 1.1 (0.9-1.1) APTT 27.1 (21.0-31.0) Seconds PTT Ratio 1.0 Sodium 132 L (136-145) mmol/L Potassium 3.5 (3.5-5.1) mmol/L Chloride 97 L (98-107) mmol/L Carbon Dioxide 31 (21-32) mmol/L Anion Gap 4.0 (3-11) BUN 15 (7-18) mg/dl Creatinine 1.11 (0.6-1.4) mg/dl Est Cr Clr Drug Dosing 41.4 ml/min Est GFR ( Amer) 70.8 Est GFR (Non-Af Amer) 61.1 BUN/Creatinine Ratio 13.4 (10-20) Glucose 111 H (70-99) mg/dl Calcium 9.5 (8.5-10.1) mg/dl Total Bilirubin 1.0 (0.2-1) mg/dl AST 17 (15-37) U/L ALT 22 (12-78) U/L Alkaline Phosphatase 91 (45-117) U/L Troponin I 0.070 H* (0-0.045) ng/ml NT-Pro-B Natriuret Pep (0-1800) pg/ml Total Protein 7.7 (6.4-8.2) gm/dl Albumin 3.4 (3.4-5.0) gm/dl Globulin 4.3 H (2.5-4.0) gm/dl Albumin/Globulin Ratio 0.8 L (0.9-2) 08/06/19 Range/Units 12:41 WBC (4.8-10.8) K/uL RBC (4.7-6.1) M/uL Hgb (14.0-18.0) g/dL Hct (42-52) % MCV (80-100) fL MCH (25-34) pg MCHC (32-36) g/dL RDW Std Deviation (36.4-46.3) fL RDW Coeff of Ty (11.5-14.5) % Plt Count (130-400) K/uL MPV (7.4-10.4) fL Immature Gran % (Auto) % Neut % (Auto) % Lymph % (Auto) % Toole % (Auto) % Eos % (Auto) % Baso % (Auto) % Immature Gran # (Auto) (0.00-0.02) K/uL Neut # (Auto) (1.4-6.5) K/uL Lymph # (Auto) (1.2-3.4) K/uL Toole # (Auto) (0.11-0.59) K/uL Eos # (Auto) (0-0.5) K/uL Baso # (Auto) (0-0.2) K/uL PT (9.0-12.0) Seconds INR (0.9-1.1) APTT (21.0-31.0) Seconds PTT Ratio Sodium (136-145) mmol/L Potassium (3.5-5.1) mmol/L Chloride (98-107) mmol/L Carbon Dioxide (21-32) mmol/L Anion Gap (3-11) BUN (7-18) mg/dl Creatinine (0.6-1.4) mg/dl Est Cr Clr Drug Dosing ml/min Est GFR ( Amer) Est GFR (Non-Af Amer) BUN/Creatinine Ratio (10-20) Glucose (70-99) mg/dl Calcium (8.5-10.1) mg/dl Total Bilirubin (0.2-1) mg/dl AST (15-37) U/L ALT (12-78) U/L Alkaline Phosphatase (45-117) U/L Troponin I (0-0.045) ng/ml NT-Pro-B Natriuret Pep 2569 H (0-1800) pg/ml Total Protein (6.4-8.2) gm/dl Albumin (3.4-5.0) gm/dl Globulin (2.5-4.0) gm/dl Albumin/Globulin Ratio (0.9-2) Imaging Data Attestation: I personally reviewed and interpreted this imaging study as follows: Radiologist's Impression: SINGLE VIEW CHEST CLINICAL HISTORY: Dyspnea. FINDINGS: 2 AP, portable, upright chest radiographs are compared to study dated 08/02/2019 and correlated with chest CT dated 05/07/2019. The examination is degraded by portable technique and patient rotation. The heart is enlarged noting atherosclerotic calcification of the thoracic aorta. There is pulmonary vascular congestion and interstitial edema. There are layering pleural effusions with bibasilar consolidation. No pneumothorax is seen. The skeletal structures are osteopenic. The bony thorax is grossly intact. IMPRESSION: 1. Cardiomegaly with evidence of congestive failure and interstitial edema. 2. Layering pleural effusions with bibasilar consolidation. ACT 112: Negative or not required by law. Electronically signed by: Dustin Rosales M.D. 08/06/2019 1:13 PM Dictated: 08/06/19 1257 Transcribed: 08/06/19 1257 ECG Data Attestation: I personally reviewed and interpreted this ECG as follows: Indication: + SOB/dyspnea Rate (beats per minute): 70 Rhythm: + sinus rhythm ECG Intervals/blocks: + First degree AV block, + Left bundle branch block and + Prolonged QT (492) ECG [place]: + Left axis deviation ECG ST segments: + Nonspecific ST abnormalities ECG Findings: no PACs and no PVCs Change: the following changes noted (08/02/19-rate has decreased by 13 bpm.) Additional Comments: An order for cardiac monitoring was placed and the patient is noted to be in a sinus rhythm at 88 bpm. Blood Pressure Blood Pressure Findings: Elevated blood pressure Blood Pressure Disposition: further management by hospitalist ANUP Narrative This patient was evaluated and appeared to be in no significant distress. IV access was obtained and laboratory work was drawn. 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 Chest x-ray was performed and reveals fluid overload. Laboratory work reveals a mildly elevated troponin at 0.07. Patient is chronically elevated therefore this is difficult to interpret. He was given 4 mg of IV Zofran and placed on 2 L nasal cannula oxygen after several episodes of hypoxia into the mid to high 80s. Patient was given 40 mg of IV Lasix and 324 mg of aspirin. He was informed of the findings and agrees with the plan for hospitalization. The [facility] inpatient team was contacted for further management. Impression & Plan CHF (congestive heart failure) Discharge Plan Visit Data *Final* Discharge Date/Time: 08/06/19 15:26 Chief Complaint: Shortness of Breath/Dyspnea Stated Complaint: SOB ED Provider: Patti Murphy Discharge Problem: CHF (congestive heart failure) Patient Disposition: Admitted As Inpatient Discharge Instructions Interventions: ED Discharge Assessment Last Done: 08/06/19 15:26 Discharge Problem: CHF (congestive heart failure) Qualifiers: Heart failure type: unspecified Heart failure chronicity: acute on chronic Qualified Code(s): I50.9 - Heart failure, unspecified
--- NOTE | 2019-08-06 14:46 | History & Physical Report ---
Date of Service August 06, 2019 Assessment & Plan (1) Hypoxia: (2) COPD exacerbation: Coughing with Multifactorial etiologies from: Acute onChronic Congestive Heart Failure Pulmonary Artery Hypertension Possible COPD exacerbation This is an 84-year-old male who has significant past medical history of chronic systolic and diastolic CHF most recent EF 28%, chronic LBBB, nonischemic cardiomyopathy, hyperlipidemia, COPD, history of PVCs/NSVT, malnutrition, BPH, depression, history of tobacco abuse, history of recent AICD/biV pacemaker placement with recent removal secondary to pacer pocket infection presents to ED secondary to worsening SOB and cough x 4 weeks. 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, today 0.07, no chest pain pro bnp actually improved today 2569 from 3166 on 08/01 follows [facility] cardiology - pt with low output syndrome which is likely contributing to worsening SOB daily weights, strict I and O, heart healthy diet repeat echo consult cardiology receive lasix 40mg IV in ED - monitor response Lasix IV 20 bid17 starting tomorrow monitor labs give 40 meq KCL x 1, K 3.5 (4) Nonischemic cardiomyopathy: Mildly Elevated troponins -patient denies chest pain symptoms during these weeks of cough symptoms -troponins have been mildly elevated on ED visits on 07/31/2019 and on 08/02/2019 as mildly above 0.05, troponin is 0.07 on 08/06/2019 which suggests persistently elevated troponin likely from coughing and CHF. (5) Chronic hyponatremia: Na 132 continue NaCl tabs monitor bmp with diuresis (6) Orthostatic hypotension: pt with hx of orthostatic hypotension which has limited cardiomyopathy therapy follows Dr. Henderson, is in the process of weaning of midodrine due to hypertension continue midodrine 2.5mg bid and cortef (7) Hypertension: pt BP elevated in ED start amlodipine 2.5mg daily which may offer benefit in treating pulmonary artery hypertension he is on cortef and midodrine for orthostasis will defer to cardiology for further advice on blood pressure and pulmonary artery hypertension treatments (8) NSVT (nonsustained ventricular tachycardia): continue amiodarone (9) BPH (benign prostatic hyperplasia): continue proscar and flomax (10) Dyslipidemia: continue statin (11) DVT prophylaxis: Lovenox Disposition: admit to PCU Follow up: PCP Dr. Godfrey upon discharge Pt was seen and examined in collaboration with Dr. Nichols, please see addendum History of Present Illness Chief Complaint: SOB and worsened cough x 4 weeks. Primary Care Provider: Taylor Lopez, This is an 84-year-old male who has significant past medical history of chronic systolic and diastolic CHF most recent EF 28%, chronic LBBB, nonischemic cardiomyopathy, hyperlipidemia, COPD, history of PVCs/NSVT, malnutrition, BPH, depression, history of tobacco abuse, history of recent AICD/biV pacemaker placement with recent removal secondary to pacer pocket infection presents to ED secondary to worsening SOB and cough x 4 weeks. Of significance pt last seen in ED 08/01, 05/26 to similar sx and started on doxycycline 100mg bid as well as lasix 20mg daily. Influenza negative at that visit. Complains of increasing SOB with exertion and at rest over past 4 weeks that is worsening along with productive cough, occasionally purulent and occasional transparent sputum, wheezing, and nausea. SOB and nausea are chronic for him but feels worsening. He denies any fever, chills, sweats, exposure to sick contacts or contacts with known covid- 19. He denies chest pain, palpitations, emesis, abdominal pain, hemoptysis, change in bowel or urinary habits. He states he has gained weight from 112 to low 120s but states he is trying to gain weight. He drinks boost BID to TID. Denies any peripheral edema, orthopnea or PND. Lives with at home. Does not use O2 at home. Has been complaint with his medications. In ED patient remained hemodynamically stable and afebrile. He did require 2 L of supplemental oxygen via nasal cannula. Lab work notable for WBC 10.40, H&H 13.3 and 39.3, platelet 194, sodium 132, K3.5, BUN 15, creatinine 1.11, glucose 111, troponin 0.070, proBNP 2569. Chest x-ray revealed CHF with interstitial edema and layering pleural effusions with bibasilar consolidation. In ED he received 40 mg IV Lasix, ASA 325 and 4 mg IV Zofran. After reviewing patient's epic chart he does follow closely with cardiology. He recently had telemedicine evaluation on 07/[address] Henderson. At that visit he was classified as NYHA functional class IV. Unfortunately his standard medical therapy for cardiomyopathy has been limited due to orthostatic hypotension. He had been on midodrine for orthostatic hypotension but his blood pressures have been on the higher side and therefore his midodrine was decreased from 2.5 mg 3 times daily to twice daily. Of significance patient has had frequent hospitalizations over the past 12 months. He was hospitalized 05/03 to 05/08 secondary to decompensation of systolic CHF. Rehospitalized from 05/17 to 05/24 secondary to hyponatremia worsened in setting of recent CHF exacerbation and diuresis. Allergies Allergy/AdvReac Type Severity Reaction Status Date / Time No Known Allergies Allergy Unknown Verified 08/06/19 14:10 Home Medications Home Medications Medication Instructions Recorded Confirmed Type aspirin 81 mg PO QAM 10/27/18 08/06/19 History atorvastatin 10 mg PO QAM 10/27/18 08/06/19 History mirtazapine 45 mg PO HS 10/27/18 08/06/19 History amiodarone 200 mg PO QAM 11/15/18 08/06/19 History midodrine 2.5 mg tablet 2.5 mg PO BID 06/13/19 08/06/19 History polyethylene glycol 3350 17 17 gm PO DAILY PRN 06/13/19 08/06/19 History gram/dose oral powder tamsulosin 0.4 mg capsule 0.4 mg PO HS 06/13/19 08/06/19 History finasteride 5 mg PO HS 07/31/19 08/06/19 History hydrocortisone 2.5 mg PO BID 07/31/19 08/06/19 History sodium chloride 1 g PO BIDM 07/31/19 08/06/19 History doxycycline hyclate 100 mg PO BID 7 Days #14 cap 08/02/19 08/06/19 Rx furosemide 20 mg PO QAM 08/06/19 08/06/19 History Past Med/Surg History Medical History Biventricular cardiac pacemaker in situ (Chronic) removed 01/14 2/ to pacer pocket infection BPH (benign prostatic hyperplasia) (Chronic) Chronic hyponatremia COPD, mild (Chronic) Depression (Chronic) Dyslipidemia (Chronic) Hypertension (Chronic) LBBB (left bundle branch block) (Chronic) Moderate protein-calorie malnutrition (Chronic) Nonischemic cardiomyopathy (Chronic) Pt admitted for BiV ICD due to NICM, LBBB and Chronic systolic HF-NYHA Class III. Underwent procedure without any complications; monitored overnight and discharged home. 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 Beliefs That Will Affect Care: None marital status: Current Living Situation: Spouse Current Living Situation Comment: [facility] current occupational status: retired Other Information That Helps Us Care for You: No Feels Safe at Home: Yes Safety Concerns: Feels Safe At This Time Smoking Status: Former smoker Tobacco Type: cigarettes ; Years Smoked: 50 ; Do You Dip or Chew Tobacco: No ; Number of Years Since Quit: 3 ; Second Hand Exposure: No ; Tobacco Cessation Education Requested by Patient: No Hx Alcohol Use: No Hx Substance Use: No Review of Systems Review of Systems: All systems reviewed & are unremarkable except as noted in HPI & below Physical Exam Physical Exam: Constitutional: Thin, fraile, elderly, M, vitals as above, NAD, sitting up in bed, coughing during exam Head: Normocephalic, Atraumatic Eyes: PERRL, conjunctivae normal, anicteric sclerae ENMT: external ear and nose normal, oropharynx normal Neck: trachea midline, no thyromegaly normal visual inspection Respiratory: normal respiratory effort, lungs clear to auscultation with bibasilar rhonchi, no wheeze, rales. Normal insp/exp effort, no accessory muscle use Cardiovascular: RRR, no murmur, no edema Vessels: no JVD or carotid bruit Chest: normal inspection of chest Abdomen: normal bowel sounds, soft, nontender, no hepatosplenomegaly Musculoskeletal: no cyanosis or clubbing, extremities motor strength 5/5 Skin: no rashes, warm and dry normal turgor Neurologic: PERRL, EOMI, accommodation nl, no face palsy, no dysarthria CN's II-XI intact bilaterally and moves all extremities Psychiatric: A+Ox3, euthymic affect Lymphatic: no cervical or axillary lymphadenopathy : deferred Results & Data Results & Data ([facility]) Vital Signs (Past 12 Hours) Vital Signs Temp Pulse Resp BP Pulse Ox 08/06/19 14:00 69 17 141/96 H 100 08/06/19 13:44 88 L 08/06/19 13:05 94 08/06/19 13:04 73 21 153/84 H 93 08/06/19 12:30 72 21 153/78 H 93 08/06/19 12:13 93 08/06/19 11:15 36.3 C L 88 20 171/82 H 92 Laboratory Results Short CBC 08/06/19 08/06/19 08/06/19 Range/Units 12:41 12:41 12:41 WBC 10.48 (4.8-10.8) K/uL Hgb 13.3 L (14.0-18.0) g/dL Hct 39.3 L (42-52) % Plt Count 194 (130-400) K/uL Sodium 132 L (136-145) mmol/L Potassium 3.5 (3.5-5.1) mmol/L Creatinine 1.11 (0.6-1.4) mg/dl Troponin I 0.070 H* (0-0.045) ng/ml NT-Pro-B Natriuret Pep 2569 H (0-1800) pg/ml BMP 08/06/19 12:41 Sodium 132 L Potassium 3.5 Chloride 97 L Carbon Dioxide 31 BUN 15 Creatinine 1.11 Glucose 111 H Calcium 9.5 Cardiac Enzymes 08/06/19 Range/Units 12:41 Troponin I 0.070 H* (0-0.045) ng/ml Liver Function 08/06/19 Range/Units 12:41 Total Bilirubin 1.0 (0.2-1) mg/dl AST 17 (15-37) U/L ALT 22 (12-78) U/L Alkaline Phosphatase 91 (45-117) U/L Albumin 3.4 (3.4-5.0) gm/dl Diagnostic Findings CXR: IMPRESSION: 1. Cardiomegaly with evidence of congestive failure and interstitial edema. 2. Layering pleural effusions with bibasilar consolidation. Medications Administered Discontinued Medications Aspirin (Aspirin) 324 mg PO NOW STA Stop: 08/06/19 13:42 Last Admin: 08/06/19 14:05 Dose: 324 mg Documented by: [id number] Furosemide (Lasix) 40 mg IV NOW STA Stop: 08/06/19 13:42 Last Admin: 08/06/19 14:05 Dose: 40 mg Documented by: [id number] Ondansetron HCl (Zofran) 4 mg IV NOW STA Stop: 08/06/19 12:17 Last Admin: 08/06/19 13:04 Dose: 4 mg Documented by: [id number] ECG Rate (beats per minute): 70 Rhythm: normal sinus Findings: + 1st degree AV block, + LBBB and + prolonged QT (492ms) Code Status & VTE Plan Code Status Full Code VTE Prophylaxis Plan VTE Prophylaxis will be ordered: Yes Supervising Physician Co-Signing Physician Notes I, Dr. Pineda Nichols, have seen and examined the patient with physician assistant coach and would like to comment that on exam of Krzysztof Victoria Coughing with Multifactorial etiologies from: Acute on Chronic Congestive Heart Failure Pulmonary Artery Hypertension Possible COPD exacerbation -echocardiogram from 2018 to April 2019 shows progression of decrease from ejection fraction to from 37% to a lower estimate of 20 to 25%; and also pulmonary artery pressure of 50 mmHg -patient with weeks of coughing, denies fever or palpitations, or chest pains -BNP 3166 on 08/02/2019 ED visit and is 2560 on 08/06/2019. No lower extremity edema -influenza swab from 08/02/2019 were negative -unlikely symptoms are from pneumonia, will allow patient to finish course of previously prescribed respiratory antibiotic of doxycycline from the ED on 08/02/2019. Chest X ray from 08/02/2019 and this admission 08/06/2019 are comparable (Cardiomegaly with evidence of congestive failure and interstitial edema. Layering pleural effusions with bibasilar consolidation) -given IV furosemide 40 mg in the ED on 08/06/2019 -will continue IV furosemide as 20 mg BID starting on 08/07/2019 -start amlodipine 2.5 mg daily -get new echocardiogram, obtain cardiology consultation -give q6 scheduled nebulizer treatments, give solumedrol 40 mg IV daily starting on 08/06/2019. Continue home dose hydrocortisone -give antitussive of Mucinex History of Tobacco Use Chronic Obstructive Pulmonary Disease (mild in severity as per outpatient records) -started smoking at age 21 and quit several times with last reported use of smoking several years ago -outpatient records of mild COPD severity but no on any inhalers at home -will start albuterol/ipratroprium every 6 hours while in the hospital -since it is unclear whether patient has COPD or not, would NOT recommend supplementary oxygen that increase oxygen saturation above 92%. Try to maintain oxygen saturation from 90 to 92% Mildly Elevated troponins -patient denies chest pain symptoms during these weeks of cough symptoms -troponins have been mildly elevated on ED visits on 07/31/2019 and on 08/02/2019 as mildly above 0.05, troponin is 0.07 on 08/06/2019 which suggests persistently elevated troponin likely from coughing and CHF. agree with other assessment and plans as documented by physician assistant coach My colleague Dr. Malik would be seeing the patient starting on 08/07/2019 (1) Hypertension Hypertension type: unspecified Qualified Code(s): I10 - Essential (primary) hypertension
[2019-08-06 14:52] LABS: Appearance Urine Turbid (Clear); Bacteria Urine Automated Negative (Negative); Bilirubin Urine Negative (Negative); Blood Urine Negative (Negative); Color Urine Yellow; Epithelial Cell Urine Auto 20-30 /lpf (0-5); Glucose Urine UA Negative (Negative); Ketones Urine Negative (Negative); Leukocyte Esterase Urine Negative (Negative); Nitrite Urine Negative (Negative); Protein Urine Negative (Negative); Specific Gravity Urine 1.015 (1.000-1.030); Urobilinogen Urine Negative (Negative); pH Urine 8.5 (4.5-7.5)
[2019-08-06 15:07] LABS: RBC Urine Automated 0-4 /hpf (0-4)
[2019-08-06 15:08] LABS: Amorphous Sediment Urine Present (None Prsent)
[2019-08-06] MEDS ORDERED: ALBUT/IPRATROP 3MG/0.5MG NEB 3 ML VIAL NEB STA (15:31)
[2019-08-06] MEDS ORDERED: ALUMINUM/MAGNESIUM SUSP 30 ML UDC PO PRN (15:59)
[2019-08-06] MEDS ORDERED: POTASSIUM CHLORIDE 20 MEQ TABCR PO STA (15:59)
[2019-08-06] MEDS ORDERED: ACETAMINOPHEN 325 MG TAB PO PRN (15:59)
[2019-08-06] MEDS ORDERED: MAGNESIUM HYDROXIDE SUSP 30 ML UDC PO PRN (15:59)
--- NOTE | 2019-08-06 16:15 | Electrocardiogram Report ---
Test Reason : Blood Pressure : / mmHG Vent. Rate : 070 BPM Atrial Rate : 070 BPM P-R Int : 210 ms QRS Dur : 174 ms QT Int : 456 ms P-R-T Axes : 078 -35 130 degrees QTc Int : 492 ms Sinus rhythm with 1st degree A-V block with Aberrant conduction Left axis deviation Left bundle branch block Abnormal ECG When compared with ECG of 02-AUG-2019 11:21, Aberrant conduction is now Present Confirmed by Roly Oates ([id number]) on 08/06/2019 4:15:23 PM Referred By: REFERRED SELF Confirmed By:Roly Oates
[2019-08-06] MEDS ORDERED: MIDODRINE HCL 2.5 MG TAB PO SCH (16:30)
[2019-08-06] MEDS: ALBUT/IPRATROP 3MG/0.5MG NEB 3 ML VIAL NEB SCH ×2 (16:32→19:13)
[2019-08-06] MEDS: SODIUM CHLORIDE 1 GM TABLET PO SCH (16:57)
[2019-08-06] MEDS: AMLODIPINE BESYLATE 5 MG TAB PO SCH (16:57)
[2019-08-06] MEDS ORDERED: MIDODRINE HCL 2.5 MG TAB PO PRN (17:15)
[2019-08-06] MEDS: HYDROCORTISONE 10 MG TAB PO SCH (20:18)
[2019-08-06] MEDS: TAMSULOSIN HCL 0.4 MG CAP PO SCH (20:19)
[2019-08-06] MEDS: MIRTAZAPINE SOLTAB 15 MG PO SCH (20:19)
[2019-08-06] MEDS: DOXYCYCLINE HYCLATE 100 MG CAP PO SCH (20:19)
[2019-08-06] MEDS: FINASTERIDE 5 MG TAB PO SCH (20:19)
[2019-08-06] MEDS: BENZONATATE 100 MG CAPSULE PO SCH (20:19)
[2019-08-06] MEDS ORDERED: ENOXAPARIN INJ 40 MG/0.4 ML SYR SQ SCH (21:00)
[2019-08-07] MEDS ORDERED: FUROSEMIDE 40 MG/4 ML VIAL IV SCH (07:00)
[2019-08-07] MEDS: ALBUT/IPRATROP 3MG/0.5MG NEB 3 ML VIAL NEB SCH ×3 (07:02→15:08)
[2019-08-07 07:36] LABS: Hematocrit (blood only) 35.1 % (42-52); Hemoglobin 11.7 g/dL (14.0-18.0); Mean Corpuscular Hemoglobin 33.7 pg (25-34); Mean Corpuscular Hgb Conc 33.3 g/dL (32-36); Mean Corpuscular Volume 101.2 fL (80-100); Mean Platelet Volume 10.7 fL (7.4-10.4); Platelet Count 202 K/uL (130-400); RDW Coefficient of Variation 13.6 % (11.5-14.5); RDW Standard Deviation 50.1 fL (36.4-46.3); Red Blood Count 3.47 M/uL (4.7-6.1); White Blood Count 8.41 K/uL (4.8-10.8)
[2019-08-07 08:14] LABS: BUN Creatinine Ratio 14.6 (10-20); Calcium 9.3 mg/dl (8.5-10.1); Creatinine Clr Calc Pharmacy 28.9 ml/min; Est GFR (African American) 49.6; Est GFR (Non-African American) 42.8; Potassium 4.7 mmol/L (3.5-5.1)
[2019-08-07] MEDS ORDERED: methylPREDNISolone 40 MG in SYRINGE 0 ML IV SCH (09:00)
[2019-08-07] MEDS ORDERED: FUROSEMIDE 20 MG in SYRINGE 0 ML IV SCH (09:00)
[2019-08-07] MEDS: SODIUM CHLORIDE 1 GM TABLET PO SCH ×2 (09:09→16:39)
[2019-08-07] MEDS: BENZONATATE 100 MG CAPSULE PO SCH ×3 (09:10→20:04)
[2019-08-07] MEDS: ATORVASTATIN 10 MG TAB PO SCH (09:10)
[2019-08-07] MEDS: ASPIRIN 81 MG ECTAB PO SCH (09:10)
[2019-08-07] MEDS: DOXYCYCLINE HYCLATE 100 MG CAP PO SCH ×2 (09:10→20:03)
[2019-08-07] MEDS: HYDROCORTISONE 10 MG TAB PO SCH ×2 (09:10→20:03)
[2019-08-07] MEDS: AMIODARONE 200 MG TAB PO SCH (09:14)
[2019-08-07] MEDS: AMLODIPINE BESYLATE 5 MG TAB PO SCH (09:14)
--- NOTE | 2019-08-07 10:58 | Cardiology Consultation ---
Date of Consultation August 07, 2019 Assessment & Plan (1) COPD (chronic obstructive pulmonary disease): (2) Orthostatic hypotension: (3) Hyponatremia: (4) Nonischemic cardiomyopathy: (5) Chronic systolic CHF (congestive heart failure), NYHA class 4: Believe the patient's symptoms are due to euvolemic heart failure and COPD. He is having difficulty maintaining himself at home. He is [place] heart association class III-IV heart failure. Do not believe any additional cardiac testing is indicated. He is going to be supportive care. His overall prognosis is poor. Goals of treatment should be established with the patient. History of Present Illness Attending Physician: Jesus Alberto Malik MD History of Present Illness This is a complicated 84-year-old patient with history of COPD and cardiac history as outlined below. He has had a previous biventricular pacemaker which had to be explanted due to an infection in December 2018. He had an echocardiogram this admission that reveals an estimated left ventricular ejection fraction of around 15 to 20% with severe mitral regurgitation. The patient appears to be euvolemic it is most likely suffering from with euvolemic heart failure. He is [place] heart association class IIIIV. His poor cardiac output is confounded by orthostatic hypotension which is symptomatic. The last few days he has been feeling short of breath, weak and fatigue. No orthopnea or lower extremity edema. He just feels that with minimal activity he is short of breath. Past medical history: 1.Recent hospitalization for acute CHF exacerbation. Diuretics titrated with improvement. Resultant CJ with hyponatremia, diuretics reduced, now discontinued. Appears euvolemic 2.Hyponatremia - did not have weekly BMP as requested by nephrology. No f/u scheduled. 3.Nonischemic cardiomyopathy with LVEF in the range of 30 to 34%, echocardiogram October, in the setting of chronic left bundle branch block, class 3 symptom s 4.Nonsustained ventricular tachycardia - chronic amiodarone. 5.Orthostatic hypotension - BP improved. No current symptoms. On midodrine. 6.Minimal CAD with patent coronary anatomy on cardiac catheterization performed October, 7.Status post implantation of biventricular pacemaker AICD 11/21/2018 with pocket infection and explantation in Dec 2018 Allergies Allergy/AdvReac Type Severity Reaction Status Date / Time No Known Allergies Allergy Unknown Verified 08/06/19 14:10 Home Medications Home Medications Medication Instructions Recorded Confirmed Type aspirin 81 mg PO QAM 10/27/18 08/06/19 History atorvastatin 10 mg PO QAM 10/27/18 08/06/19 History mirtazapine 45 mg PO HS 10/27/18 08/06/19 History amiodarone 200 mg PO QAM 11/15/18 08/06/19 History midodrine 2.5 mg tablet 2.5 mg PO BID 06/13/19 08/06/19 History polyethylene glycol 3350 17 17 gm PO DAILY PRN 06/13/19 08/06/19 History gram/dose oral powder tamsulosin 0.4 mg capsule 0.4 mg PO HS 06/13/19 08/06/19 History finasteride 5 mg PO HS 07/31/19 08/06/19 History hydrocortisone 2.5 mg PO BID 07/31/19 08/06/19 History sodium chloride 1 g PO BIDM 07/31/19 08/06/19 History doxycycline hyclate 100 mg PO BID 7 Days #14 cap 08/02/19 08/06/19 Rx furosemide 20 mg PO QAM 08/06/19 08/06/19 History Patient History Medical History Biventricular cardiac pacemaker in situ (Chronic) removed 01/14 05/26 to pacer pocket infection BPH (benign prostatic hyperplasia) (Chronic) Chronic hyponatremia COPD, mild (Chronic) Depression (Chronic) Dyslipidemia (Chronic) Hypertension (Chronic) LBBB (left bundle branch block) (Chronic) Moderate protein-calorie malnutrition (Chronic) Nonischemic cardiomyopathy (Chronic) Pt admitted for BiV ICD due to NICM, LBBB and Chronic systolic HF-NYHA Class III. Underwent procedure without any complications; monitored overnight and discharged home. 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 11/01/18 = widely patent coronary arteries History of cardiac cath SEPTEMBER 2018 AT [facility] NO STENTS History of cataract surgery (Chronic) BILATERAL History of colonoscopy History of tonsillectomy and adenoidectomy (Chronic) History of total left hip replacement (Chronic) Family History Mother Hypertension Brother FHx: myocardial infarction HALF-BROTHER Sister Kidney transplant status Social History Preferred Language: Bruneian Communication Ability: Effective Research And Development Tester Required: No Beliefs That Will Affect Care: None marital status: Current Living Situation: Spouse Current Living Situation Comment: Jelly current occupational status: retired Other Information That Helps Us Care for You: No Feels Safe at Home: Yes Safety Concerns: Feels Safe At This Time Smoking Status: Former smoker Tobacco Type: cigarettes ; Years Smoked: 50 ; Do You Dip or Chew Tobacco: No ; Number of Years Since Quit: 3 ; Second Hand Exposure: No ; Tobacco Cessation Education Requested by Patient: No Hx Alcohol Use: No Hx Substance Use: No Review of Systems Review of Systems: All systems reviewed & are unremarkable except as noted in HPI & below Nothing additional to add. Physical Exam Physical Exam: General: no acute distress and stated age Head: normocephalic, no masses, lesions, tenderness or abnormalities Eyes: conjunctiva are pink and non-injected, sclera clear Neck: supple, no adenopathy, no bruits, normal jugular venous pulse, no hepatojugular reflux Chest: normal shape and normal respiratory effort Lungs: clear to auscultation and percussion Cardiac Exam: - regular rate & rhythm, no murmurs gallops or rubs - normal S1, normal S2 Pulses: 2(+) throughout Abdomen: abdomen soft, non-tender, no abnormal masses and no hepatosplenomegaly Musculoskeletal: no gait disturbance, no joint inflammation, no deforming arthritis Extremities: no edema and no cyanosis Neuro: grossly normal exam Results & Data ([facility]) Vital Signs (Past 12 Hours) Vital Signs Temp Pulse Pulse Pulse Resp BP BP 08/07/19 09:15 82 120/56 L 08/07/19 07:41 36.7 C 74 16 104/53 L 08/07/19 07:02 72 16 08/07/19 04:02 36.5 C 75 17 122/49 L 08/07/19 00:00 74 08/06/19 23:29 36.6 C 74 19 118/51 L Pulse Ox 08/07/19 09:15 08/07/19 07:41 92 08/07/19 07:02 93 08/07/19 04:02 92 08/07/19 00:00 08/06/19 23:29 91 Laboratory Results Laboratory Results - last 24 hr 08/06/19 08/06/19 08/06/19 12:41 12:41 12:41 WBC 10.48 RBC 3.94 L Hgb 13.3 L Hct 39.3 L MCV 99.7 MCH 33.8 MCHC 33.8 RDW Std Deviation 48.3 H RDW Coeff of Ty 13.3 Plt Count 194 MPV 10.8 H Immature Gran % (Auto) 0.3 Neut % (Auto) 83.4 Lymph % (Auto) 7.8 Payne % (Auto) 7.5 Eos % (Auto) 0.6 Baso % (Auto) 0.4 Immature Gran # (Auto) 0.03 H Neut # (Auto) 8.74 H Lymph # (Auto) 0.82 L Payne # (Auto) 0.79 H Eos # (Auto) 0.06 Baso # (Auto) 0.04 PT 11.7 INR 1.1 APTT 27.1 PTT Ratio 1.0 Sodium 132 L Potassium 3.5 Chloride 97 L Carbon Dioxide 31 Anion Gap 4.0 BUN 15 Creatinine 1.11 Est Cr Clr Drug Dosing 41.4 Est GFR ( Amer) 70.8 Est GFR (Non-Af Amer) 61.1 BUN/Creatinine Ratio 13.4 Glucose 111 H Calcium 9.5 Magnesium Total Bilirubin 1.0 AST 17 ALT 22 Alkaline Phosphatase 91 Troponin I 0.070 H* NT-Pro-B Natriuret Pep Total Protein 7.7 Albumin 3.4 Globulin 4.3 H Albumin/Globulin Ratio 0.8 L Procalcitonin Urine Color Urine Appearance Urine pH Ur Specific Gillespie Urine Protein Urine Glucose (UA) Urine Ketones Urine Blood Urine Nitrite Urine Bilirubin Urine Urobilinogen Ur Leukocyte Esterase Urine WBC (Auto) Urine RBC (Auto) U Hyaline Cast (Auto) U Epithel Cells (Auto) Urine Bacteria (Auto) Amorphous Sediment Urine Yeast 08/06/19 08/06/19 08/06/19 12:41 14:30 14:56 WBC RBC Hgb Hct MCV MCH MCHC RDW Std Deviation RDW Coeff of Ty Plt Count MPV Immature Gran % (Auto) Neut % (Auto) Lymph % (Auto) Payne % (Auto) Eos % (Auto) Baso % (Auto) Immature Gran # (Auto) Neut # (Auto) Lymph # (Auto) Payne # (Auto) Eos # (Auto) Baso # (Auto) PT INR APTT PTT Ratio Sodium Potassium Chloride Carbon Dioxide Anion Gap BUN Creatinine Est Cr Clr Drug Dosing Est GFR ( Amer) Est GFR (Non-Af Amer) BUN/Creatinine Ratio Glucose Calcium Magnesium Total Bilirubin AST ALT Alkaline Phosphatase Troponin I NT-Pro-B Natriuret Pep 2569 H Total Protein Albumin Globulin Albumin/Globulin Ratio Procalcitonin < 0.05 Urine Color Yellow Urine Appearance Turbid A Urine pH 8.5 H Ur Specific Gillespie 1.015 Urine Protein Negative Urine Glucose (UA) Negative Urine Ketones Negative Urine Blood Negative Urine Nitrite Negative Urine Bilirubin Negative Urine Urobilinogen Negative Ur Leukocyte Esterase Negative Urine WBC (Auto) 1-5 Urine RBC (Auto) 0-4 U Hyaline Cast (Auto) 1-5 U Epithel Cells (Auto) 20-30 H Urine Bacteria (Auto) Negative Amorphous Sediment Present A Urine Yeast Not Reportable 08/07/19 08/07/19 07:22 07:22 WBC 8.41 RBC 3.47 L Hgb 11.7 L Hct 35.1 L MCV 101.2 H MCH 33.7 MCHC 33.3 RDW Std Deviation 50.1 H RDW Coeff of Ty 13.6 Plt Count 202 MPV 10.7 H Immature Gran % (Auto) Neut % (Auto) Lymph % (Auto) Payne % (Auto) Eos % (Auto) Baso % (Auto) Immature Gran # (Auto) Neut # (Auto) Lymph # (Auto) Payne # (Auto) Eos # (Auto) Baso # (Auto) PT INR APTT PTT Ratio Sodium 133 L Potassium 4.7 D Chloride 98 Carbon Dioxide 30 Anion Gap 5.0 BUN 22 H Creatinine 1.49 H D Est Cr Clr Drug Dosing 28.9 Est GFR ( Amer) 49.6 Est GFR (Non-Af Amer) 42.8 BUN/Creatinine Ratio 14.6 Glucose 137 H Calcium 9.3 Magnesium 2.0 Total Bilirubin AST ALT Alkaline Phosphatase Troponin I NT-Pro-B Natriuret Pep Total Protein Albumin Globulin Albumin/Globulin Ratio Procalcitonin Urine Color Urine Appearance Urine pH Ur Specific Gillespie Urine Protein Urine Glucose (UA) Urine Ketones Urine Blood Urine Nitrite Urine Bilirubin Urine Urobilinogen Ur Leukocyte Esterase Urine WBC (Auto) Urine RBC (Auto) U Hyaline Cast (Auto) U Epithel Cells (Auto) Urine Bacteria (Auto) Amorphous Sediment Urine Yeast Medications Administered Current Inpatient Medications Acetaminophen (Tylenol) 650 mg PO Q4H PRN PRN Reason: Pain or Fever Stop: 09/05/19 15:58 Al Hydrox/Mg Hydrox/Simethicone (Maalox) 15 ml PO Q4H PRN PRN Reason: Dyspepsia Stop: 09/05/19 15:58 Albuterol (Duoneb) 3 ml NEB QIDR [facility] Stop: 09/05/19 16:14 Last Admin: 08/07/19 11:21 Dose: 3 ml Documented by: Amiodarone HCl (Cordarone) [facility] Stop: 09/06/19 08:59 Last Admin: 08/07/19 09:14 Dose: 200 mg Documented by: Amlodipine Besylate (Norvasc) 2.5 mg [facility] [place] Stop: 09/05/19 16:29 Last Admin: 08/07/19 09:14 Dose: 2.5 mg Documented by: Aspirin (Ecotrin Ectab) 81 [facility] [place] Stop: 09/06/19 08:59 Last Admin: 08/07/19 09:10 Dose: 81 mg Documented by: Atorvastatin Calcium (Lipitor) 10 mg PO QAM [facility] Stop: 09/06/19 08:59 Last Admin: 08/07/19 09:10 Dose: 10 mg Documented by: Benzonatate (Tessalon Perle) 100 mg PO TID [facility] Stop: 09/05/19 20:59 Last Admin: 08/07/19 09:10 Dose: 100 mg Documented by: Doxycycline Hyclate (Vibramycin) 100 mg PO BID [facility] Stop: 08/13/19 20:59 Last Admin: 08/07/19 09:10 Dose: 100 mg Documented by: Enoxaparin Sodium (Lovenox) 40 mg SQ Q24H [facility] Stop: 09/05/19 20:59 Last Admin: 08/06/19 20:18 Dose: 40 mg Documented by: Finasteride (Proscar) [address] [facility] Stop: 09/05/19 20:59 Last Admin: 08/06/19 20:19 Dose: 5 mg Documented by: Hydrocortisone (Cortef) 2.5 mg PO BID [facility] Stop: 09/05/19 20:59 Last Admin: 08/07/19 09:10 Dose: 2.5 mg Documented by: Furosemide 20 mg/ Syringe 2 mls @ 4 mls/min IV BID17 [facility] Stop: 09/06/19 08:59 Last Admin: 08/07/19 09:15 Dose: 4 mls/min Documented by: Methylprednisolone 40 mg/ (Syringe) 0.64 mls @ 1.5 mls/min IV DAILY [facility] Stop: 09/06/19 08:59 Last Admin: 08/07/19 09:10 Dose: 1.5 mls/min Documented by: Magnesium Hydroxide (Milk Of Magnesia) 30 ml PO Q12H PRN PRN Reason: Constipation Stop: 09/05/19 15:58 Midodrine (Proamatine) 2.5 mg PO BID@0800,1400 PRN PRN Reason: Hypotension Stop: 09/05/19 16:29 Mirtazapine (Remeron Solutab) 45 mg PO HS [facility] Stop: 09/05/19 20:59 Last Admin: 08/06/19 20:19 Dose: 45 mg Documented by: Polyethylene Glycol (Miralax Powder Packet) 17 gm PO DAILY PRN PRN Reason: Constipation Stop: 09/05/19 15:58 Sodium Chloride (Sodium Chloride) 1 gm PO BIDM [facility] Stop: 09/05/19 16:59 Last Admin: 08/07/19 09:09 Dose: 1 gm Documented by: Tamsulosin HCl (Flomax) 0.4 mg PO HS [facility] Stop: 09/05/19 20:59 Last Admin: 08/06/19 20:19 Dose: 0.4 mg Documented by: (1) COPD (chronic obstructive pulmonary disease) COPD type: emphysema Emphysema type: unspecified Qualified Code(s): J43.9 - Emphysema, unspecified
--- NOTE | 2019-08-07 15:18 | Hospitalist Progress Note ---
Date of Service August 07, 2019 Assessment & Plan (1) Acute on chronic HFrEF (heart failure with reduced ejection fraction): nonischemic cardiomyopathy chronically elevated troponin, no chest pain [facility], appreciate input - pt with low output syndrome which is likely contributing to worsening SOB (2) Hypoxia: combination of decompensated CHF /COPD exacerbation resolved on room air SEVERE PROTEIN CALORIE MALNUTRITION : BMI 17.7 with significant wt loss Nutrition consulted appreciate input cont dietary supplement diet liberalized to regular slippery diet as per prior speech recommendation (3) COPD exacerbation: Coughing with Multifactorial etiologies from: Acute onChronic Congestive Heart Failure Pulmonary Artery Hypertension Possible COPD exacerbation -admitted with cough with productive sputum , SOB continue oral doxycycline to complete on 08/08-for possible bronchitis no wheeze change Neb tx to PRN d/c IV solu medrol PO prednisone (4) Nonischemic cardiomyopathy: .Minimal CAD with patent coronary anatomy on cardiac catheterization performed October, .Status post implantation of biventricular pacemaker AICD 11/21/2018 with pocket infection and removal of AICD in Dec 2018 Last echo 04/2019 revealed EF 20-25%, severe global hypokinesis, LV severely reduced baseline NYHA class 4 CHF with significant deconditioning repeat ECHO this admission show worsening of cardiomyopathy reduced EF 15-20% (5) Chronic hyponatremia: Na 132 continue NaCl tabs monitor bmp with diuresis ACUTE RENAL FAILURE ON CKD STAGE 3 : due to diuresis follow labs (6) Orthostatic hypotension: pt with hx of orthostatic hypotension which has limited cardiomyopathy therapy follows Dr. Henderson, is in the process of weaning of midodrine due to hypertension midodrine ordered for PRN SBP < 100 monitor in tele (7) Hypertension: started on amlodipine 2.5mg daily which may offer benefit in treating pulmonary artery hypertension he is on cortef and midodrine for orthostasis (8) NSVT (nonsustained ventricular tachycardia): continue amiodarone (9) BPH (benign prostatic hyperplasia): continue proscar and flomax (10) Dyslipidemia: continue statin (11) DVT prophylaxis: Lovenox Disposition: monitor in PCU PT/OT prior to discharge Follow up: PCP Dr. Godfrey upon discharge Admission and Anticipated Discharge Date Admission Date: August 06, 2019 Subjective no complain of SOB no orthopnea no fever or chills Review of Systems Review of Systems: All systems reviewed & are unremarkable except as noted in HPI & below Constitutional: + fatigue, + malaise, + weakness, + anorexia and + weight loss; no fever and no chills Respiratory: + wheezing Cardiovascular: + lightheadedness; no chest pain and no edema Physical Exam Constitutional: WD/WN, vitals as above + ill appearing and + thin; no acute distress Eyes: PERRL, conjunctivae normal, anicteric sclerae ENMT: external ear and nose normal, oropharynx normal Neck: trachea midline, no thyromegaly Respiratory: normal respiratory effort; no respiratory distress Auscultation: + wheezes Cardiovascular: RRR, no murmur, no edema Gastrointestinal (Abdomen): normal bowel sounds, soft, nontender, no hepatosplenomegaly Musculoskeletal: no cyanosis or clubbing, extremities motor strength 5/5 Skin: no rashes, warm and dry Neurologic: PERRL, EOMI, accommodation nl, no face palsy, no dysarthria Psychiatric: A+Ox3, euthymic affect Results & Data Results & Data ([facility]) Vital Signs (Past 12 Hours) Vital Signs Temp Pulse Pulse Pulse Resp BP BP 08/07/19 15:08 72 14 08/07/19 11:44 36.6 C 83 18 121/53 L 08/07/19 11:23 83 16 08/07/19 09:15 82 120/56 L 08/07/19 07:41 36.7 C 74 16 104/53 L 08/07/19 07:02 72 16 08/07/19 04:02 36.5 C 75 17 122/49 L Pulse Ox 08/07/19 15:08 93 08/07/19 11:44 95 08/07/19 11:23 96 08/07/19 09:15 08/07/19 07:41 92 08/07/19 07:02 93 08/07/19 04:02 92 Diagnostic Findings CXR: IMPRESSION: 1. Cardiomegaly with evidence of congestive failure and interstitial edema. 2. Layering pleural effusions with bibasilar consolidation. (1) Hypertension Hypertension type: unspecified Qualified Code(s): I10 - Essential (primary) hypertension
[2019-08-07] MEDS ORDERED: ALBUT/IPRATROP 3MG/0.5MG NEB 3 ML VIAL NEB PRN (18:42)
[2019-08-07] MEDS: MIRTAZAPINE SOLTAB 15 MG PO SCH (20:03)
[2019-08-07] MEDS: FINASTERIDE 5 MG TAB PO SCH (20:04)
[2019-08-07] MEDS: TAMSULOSIN HCL 0.4 MG CAP PO SCH (20:20)
[2019-08-08 07:26] LABS: BUN Creatinine Ratio 20.5 (10-20); Creatinine Clr Calc Pharmacy 27.1 ml/min; Est GFR (African American) 44.8; Est GFR (Non-African American) 38.7; Potassium 4.5 mmol/L (3.5-5.1)
[2019-08-08] MEDS: HYDROCORTISONE 10 MG TAB PO SCH (07:48)
[2019-08-08] MEDS: AMLODIPINE BESYLATE 5 MG TAB PO SCH (07:49)
[2019-08-08] MEDS: ATORVASTATIN 10 MG TAB PO SCH (07:49)
[2019-08-08] MEDS: BENZONATATE 100 MG CAPSULE PO SCH ×3 (07:49→21:33)
[2019-08-08] MEDS: ASPIRIN 81 MG ECTAB PO SCH (07:50)
[2019-08-08] MEDS: DOXYCYCLINE HYCLATE 100 MG CAP PO SCH ×2 (07:50→21:34)
[2019-08-08] MEDS: SODIUM CHLORIDE 1 GM TABLET PO SCH (07:50)
[2019-08-08] MEDS: AMIODARONE 200 MG TAB PO SCH (07:50)
[2019-08-08] MEDS ORDERED: bisacodyL 10 MG SUPP PR STA (08:02)
[2019-08-08] MEDS ORDERED: predniSONE 20 MG TAB PO SCH (09:00)
--- NOTE | 2019-08-08 09:41 | Nephrology Consultation ---
Date of Consultation August 08, 2019 Assessment & Plan (1) CJ (acute kidney injury): Nonoliguric acute renal failure with baseline creatinine 1.0-1.1, as recently as August 06, 2019. On August 06, creatinine was up to 1.5 and today to 1.6. Apart from chronic hyponatremia, other serum chemistries acceptable. With from cardiorenal syndrome. Standing weight August 07 is 55.5 kg. During April admission on May 22, 2019, standing scale weight was 51.7 kg; this was his discharge weight. Urinalysis obtained at admission remarkable for no evidence of microhematuria, dipstick proteinuria, or urine ketones or infection/inflammation. Specimen was however turbid with some amorphous sedi ment present; difficult to interpret this clinically. Continue daily standing weights Will repeat urinalysis with microscopy -He had been started on 20 mg IV Lasix twice daily: one and only dose was yesterday AM 0900; also had 40 mg IV x 1 in ER on 08/05; lasix currently on hold; generally takes 20 mg po qAM lasix as OP>>hold lasix for today -History of urinary retention in the past: Will check PVR x1 KS: Also has PRN bladder scan Present on Admission?: No (2) Chronic hyponatremia: Since his discharge in April, the patient has in the interval been started on salt tablets twice daily. These are generally inappropriate for hyponatremia in the heart failure context > he is volume overloaded with progressive sx and new (since April) BL pleural effusions and interstitial edema on CXR, progressive on radiologic exams this month -Salt tablets stopped -daily bmp -hold off on lasix for now but look to resume quite soon Present on Admission?: Yes (3) Orthostatic hypotension: Symptoms at times can be severe. Continue midodrine current dose -salt tablets stopped>> this step may worsen this condition > will monitor -recommend daily or q48 hr orthostatic checks -?consideration of attempting to wean hydrocortisone Present on Admission?: Yes (4) Acute on chronic HFrEF (heart failure with reduced ejection fraction): as evidenced by worsening dyspnea and functional status, BL pleural effusions and interstitial edema -ordered 1.5L FR, <2 gm daily Na diet -salt tabs stopped -defer to primary service but recommend attempting to wean or at least reduce dose of hydrocortisone which can worsen HF -daily standing weights much appreciated and to continue -low threshold to discuss goals of care frankly and or to involve palliative care as overall prognosis grave Present on Admission?: Yes History of Present Illness Reason for Consultation: Acute renal failure Requesting Physician: Dr. Tyson Attending Physician: Michelle Tyson MD History of Present Illness 84-year-old male whom I am asked to see for acute renal failure after he was admitted on August 05 for worsening functional status in the setting of acute on chronic systolic heart failure and COPD. He presented with worsening exertional dyspnea and dyspnea at rest over the preceding month along with a productive cough same timeframe. Past medical history includes nonischemic cardiomyopathy with chronic systolic heart failure and ejection fraction 15 to 20% as of December 2018 with severe mitral regurgitation and with [place] [employer] class III to class IV symptoms, chronic orthostatic hypotension on Midodrine, nonsustained ventricular tachycardia on chronic amiodarone therapy, chronic hyponatremia. He did have AICD/biventricular pacer placement complicated by pocket infection with removal in December 2018. He is hospitalized frequently for his cardio pulmonary issues: In this setting has had recurrent hyponatremia and acute renal failure as well. He was admitted here April 2019 for these issues and discharged to rehab hospital. Apparently at rehab, he was started on both salt tablets and hydrocortisone; no comment in rehab discharge documentation on indications for this. Pt now also takes 20 mg po lasix daily. Baseline creatinine is 1.1-1.2 in [facility] charts but closer to 1.3-1.4 in [facility]. Creatinine on presentation here was 1.5, up to 1.6 today. Serum sodium tends to run in the low 130s at the time for him, if not lower. Presenting sodium was 133, down to 132 today. Allergies Allergy/AdvReac Type Severity Reaction Status Date / Time No Known Allergies Allergy Unknown Verified 08/06/19 14:10 Home Medications Home Medications Medication Instructions Recorded Confirmed Type aspirin 81 mg PO QAM 10/27/18 08/06/19 History atorvastatin 10 mg PO QAM 10/27/18 08/06/19 History mirtazapine 45 mg PO HS 10/27/18 08/06/19 History amiodarone 200 mg PO QAM 11/15/18 08/06/19 History midodrine 2.5 mg tablet 2.5 mg PO BID 06/13/19 08/06/19 History polyethylene glycol 3350 17 17 gm PO DAILY PRN 06/13/19 08/06/19 History gram/dose oral powder tamsulosin 0.4 mg capsule 0.4 mg PO HS 06/13/19 08/06/19 History finasteride 5 mg PO HS 07/31/19 08/06/19 History hydrocortisone 2.5 mg PO BID 07/31/19 08/06/19 History sodium chloride 1 g PO BIDM 07/31/19 08/06/19 History doxycycline hyclate 100 mg PO BID 7 Days #14 cap 08/02/19 08/06/19 Rx furosemide 20 mg PO QAM 08/06/19 08/06/19 History Patient History Medical History Biventricular cardiac pacemaker in situ (Chronic) removed 01/14 05/26 to pacer pocket infection BPH (benign prostatic hyperplasia) (Chronic) Chronic hyponatremia COPD, mild (Chronic) Depression (Chronic) Dyslipidemia (Chronic) Hypertension (Chronic) LBBB (left bundle branch block) (Chronic) Moderate protein-calorie malnutrition (Chronic) Nonischemic cardiomyopathy (Chronic) Pt admitted for BiV ICD due to NICM, LBBB and Chronic systolic HF-NYHA Class III. Underwent procedure without any complications; monitored overnight and discharged home. 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 11/01/18 = widely patent coronary arteries History of cardiac cath SEPTEMBER 2018 AT [facility] NO STENTS History of cataract surgery (Chronic) BILATERAL History of colonoscopy History of tonsillectomy and adenoidectomy (Chronic) History of total left hip replacement (Chronic) Family History Mother Hypertension Brother FHx: myocardial infarction HALF-BROTHER Sister Kidney transplant status Social History Preferred Language: Occitan Communication Ability: Effective Model Artists' Required: No Beliefs That Will Affect Care: None marital status: Current Living Situation: Spouse Current Living Situation Comment: [employer] current occupational status: retired Other Information That Helps Us Care for You: No Feels Safe at Home: Yes Safety Concerns: Feels Safe At This Time Smoking Status: Former smoker Tobacco Type: cigarettes ; Years Smoked: 50 ; Do You Dip or Chew Tobacco: No ; Number of Years Since Quit: 3 ; Second Hand Exposure: No ; Tobacco Cessation Education Requested by Patient: No Hx Alcohol Use: No Hx Substance Use: No Review of Systems Review of Systems: All systems reviewed & are unremarkable except as noted in HPI & below Constitutional: + fatigue, + weakness and + weight gain (But still poor appetite) Respiratory: + dyspnea and + dyspnea on exertion Physical Exam Constitutional: well developed and + thin; no acute distress Sitting up in chair on room air Eyes: EOM intact bilaterally ENMT: Ears: no external ear abnormality Nose: no external nose abnormality Mouth: + dry oral mucous membranes Neck: no nuchal rigidity Respiratory: normal respiratory effort and + labored breathing; + not able to speak in complete sentence, expiratory phase not prolonged and no paradoxical thoraco-abdominal movemnt Auscultation: + diminished lung sounds (Especially bilateral bases) and + crackles (Very occasional fine) Cardiovascular: RRR, no murmur, no edema Gastrointestinal (Abdomen): Inspection/Auscultation: normal bowel sounds Percussion/Palpation: abdomen soft; abdomen nontender Musculoskeletal: Extremities: strength 5/5 throughout Skin: no rashes, warm and dry Neurologic: alonzo, fluent though dyspneic speech, no tremor Psychiatric: A+Ox3, euthymic affect Results & Data Vital Signs (Past 12 Hours) Vital Signs Temp Pulse Resp BP BP Pulse Ox 08/08/19 04:14 36.5 C 82 16 135/67 92 08/07/19 23:39 37 C 81 18 120/53 L 93 Laboratory Results 08/07/19 07:22 08/08/19 06:21 Diagnostic Findings Admission chest x-ray 1. Cardiomegaly with evidence of congestive failure and interstitial edema. 2. Layering pleural effusions with bibasilar consolidation. TTE done yesterday: Moderate LV dilatation with borderline concentric LVH. Ejection fraction for the LV is 15 to 20%. Severe mitral regurgitation.
--- NOTE | 2019-08-08 10:47 | Cardiology Progress Note ---
Date of Service August 08, 2019 Assessment & Plan (1) COPD (chronic obstructive pulmonary disease): (2) Orthostatic hypotension: (3) Hyponatremia: (4) Nonischemic cardiomyopathy: (5) Chronic systolic CHF (congestive heart failure), NYHA class 4: Nephrology's help is appreciated. I would continue diuretics for now. The patient has decided not to have another ICD or biventricular pacemaker inserted. Subjective The patient is sitting comfortably in the chair. He has no new complaints. Review of Systems Review of Systems: All systems reviewed & are unremarkable except as noted in HPI & below Nothing additional to add. Physical Exam Physical Exam: General: no acute distress and stated age Head: normocephalic, no masses, lesions, tenderness or abnormalities Eyes: conjunctiva are pink and non-injected, sclera clear Neck: supple, no adenopathy, no bruits, normal jugular venous pulse, no hepatojugular reflux Chest: normal shape and normal respiratory effort Lungs: clear to auscultation and percussion Cardiac Exam: - regular rate & rhythm, no murmurs gallops or rubs - normal S1, normal S2 Pulses: 2(+) throughout Abdomen: abdomen soft, non-tender, no abnormal masses and no hepatosplenomegaly Musculoskeletal: no gait disturbance, no joint inflammation, no deforming arthritis Extremities: no edema and no cyanosis Neuro: grossly normal exam Results & Data Vital Signs (Past 12 Hours) Vital Signs Temp Pulse Resp BP BP Pulse Ox 08/08/19 04:14 36.5 C 82 16 135/67 92 08/07/19 23:39 37 C 81 18 120/53 L 93 Laboratory Results Laboratory Results - last 24 hr 08/08/19 06:21 Sodium 132 L Potassium 4.5 Chloride 100 Carbon Dioxide 32 Anion Gap 0 L BUN 33 H Creatinine 1.62 H Est Cr Clr Drug Dosing 27.1 Est GFR ( Amer) 44.8 Est GFR (Non-Af Amer) 38.7 BUN/Creatinine Ratio 20.5 H Glucose 128 H Calcium 9.0 Medications Administered Current Inpatient Medications Acetaminophen (Tylenol) 650 mg PO Q4H PRN PRN Reason: Pain or Fever Stop: 09/05/19 15:58 Al Hydrox/Mg Hydrox/Simethicone (Maalox) 15 ml PO Q4H PRN PRN Reason: Dyspepsia Stop: 09/05/19 15:58 Albuterol (Duoneb) 3 ml NEB QIDR PRN PRN Reason: whezze Stop: 09/05/19 16:14 Amiodarone HCl (Cordarone) 200 mg PO QAM [facility] Stop: 09/06/19 08:59 Last Admin: 08/08/19 07:50 Dose: 200 mg Documented by: Amlodipine Besylate (Norvasc) 2.5 mg PO QAM [facility] Stop: 09/05/19 16:29 Last Admin: 08/08/19 07:49 Dose: 2.5 mg Documented by: Aspirin (Ecotrin Ectab) 81 mg PO QAM [facility] Stop: 09/06/19 08:59 Last Admin: 08/08/19 07:50 Dose: 81 mg Documented by: Atorvastatin Calcium (Lipitor) 10 mg PO QAM [facility] Stop: 09/06/19 08:59 Last Admin: 08/08/19 07:49 Dose: 10 mg Documented by: Benzonatate (Tessalon Perle) 100 mg PO TID [facility] Stop: 09/05/19 20:59 Last Admin: 08/08/19 07:49 Dose: 100 mg Documented by: Doxycycline Hyclate (Vibramycin) 100 mg PO BID [facility] Stop: 08/13/19 20:59 Last Admin: 08/08/19 07:50 Dose: 100 mg Documented by: Finasteride (Proscar) 5 mg PO HS [facility] Stop: 09/05/19 20:59 Last Admin: 08/07/19 20:04 Dose: 5 mg Documented by: Hydrocortisone (Cortef) 2.5 mg PO BID [facility] Stop: 09/05/19 20:59 Last Admin: 08/08/19 07:48 Dose: 2.5 mg Documented by: Furosemide 20 mg/ Syringe 2 mls @ 4 mls/min IV [id number] [facility] Stop: 09/06/19 08:59 Last Admin: 08/07/19 09:15 Dose: 4 mls/min Documented by: Magnesium Hydroxide (Milk Of Magnesia) 30 ml PO Q12H PRN PRN Reason: Constipation Stop: 09/05/19 15:58 Midodrine (Proamatine) 2.5 mg PO BID@0800,1400 PRN PRN Reason: Hypotension Stop: 09/05/19 16:29 Mirtazapine (Remeron Solutab) 45 mg PO HS [facility] Stop: 09/05/19 20:59 Last Admin: 08/07/19 20:03 Dose: 45 mg Documented by: Polyethylene Glycol (Miralax Powder Packet) 17 gm PO DAILY PRN PRN Reason: Constipation Stop: 09/05/19 15:58 Prednisone (Prednisone) 20 mg PO DAILY [facility] Stop: 09/07/19 08:59 Last Admin: 08/08/19 07:49 Dose: 20 mg Documented by: Tamsulosin HCl (Flomax) 0.4 mg PO [facility] Stop: 09/05/19 20:59 Last Admin: 08/07/19 20:20 Dose: 0.4 mg Documented by: (1) COPD (chronic obstructive pulmonary disease) COPD type: emphysema Emphysema type: unspecified Qualified Code(s): J43.9 - Emphysema, unspecified
--- NOTE | 2019-08-08 11:49 | Hospitalist Progress Note ---
Date of Service August 08, 2019 Assessment & Plan (1) Acute on chronic HFrEF (heart failure with reduced ejection fraction): nonischemic cardiomyopathy chronically elevated troponin, no chest pain follows [facility]-consulted, appreciate input -chronic systolic CHF NYHA class 4 over all prognosis poor (2) Hypoxia: combination of decompensated CHF /COPD exacerbation resolved on room air SEVERE PROTEIN CALORIE MALNUTRITION : BMI 17.7 with significant wt loss Nutrition consulted appreciate input cont dietary supplement diet liberalized to regular slippery diet as per prior speech recommendation (3) COPD exacerbation: Coughing with Multifactorial etiologies from: Acute onChronic Congestive Heart Failure Pulmonary Artery Hypertension Possible COPD exacerbation -admitted with cough with productive sputum , SOB continue oral doxycycline to complete on 08/08-for possible bronchitis no wheeze change Neb tx to PRN d/c IV solu medrol (4) Nonischemic cardiomyopathy: .Minimal CAD with patent coronary anatomy on cardiac catheterization performed October, .Status post implantation of biventricular pacemaker AICD 11/21/2018 with pocket infection and removal of AICD in Dec 2018 Last echo 04/2019 revealed EF 20-25%, severe global hypokinesis, LV severely reduced baseline NYHA class 4 CHF with significant deconditioning repeat ECHO this admission show worsening of cardiomyopathy reduced EF 15-20% (5) Chronic hyponatremia: Na 132 Salt tab d/yovani as it may contribute to vol overload /CHF decompensation nephrology consulted appreciate input ACUTE RENAL FAILURE ON CKD STAGE 3 : due to diuresis Lasix kept on hold Nephrology following (6) Orthostatic hypotension: pt with hx of orthostatic hypotension which has limited cardiomyopathy therapy follows Dr. Henderson, is in the process of weaning of midodrine due to h ypertension midodrine ordered for PRN SBP < 100 monitor in tele (7) Hypertension: started on amlodipine 2.5mg daily which may offer benefit in treating pulmonary artery hypertension on Midodrine for orthostatic Hypotension wean off Cortif to prevent vol overload /decompensation of CHF (8) NSVT (nonsustained ventricular tachycardia): continue amiodarone (9) BPH (benign prostatic hyperplasia): continue proscar and flomax (10) Dyslipidemia: continue statin (11) DVT prophylaxis: Lovenox Disposition: monitor in PCU PT/OT prior to discharge Follow up: PCP Dr. Godfrey upon discharge Admission and Anticipated Discharge Date Admission Date: August 06, 2019 Subjective no complain of SOB feels well appetite has improved Physical Exam Constitutional: WD/WN, vitals as above + ill appearing and + thin; no acute distress Eyes: PERRL, conjunctivae normal, anicteric sclerae ENMT: external ear and nose normal, oropharynx normal Neck: trachea midline, no thyromegaly Respiratory: normal respiratory effort; no respiratory distress Auscultation: + wheezes Cardiovascular: RRR, no murmur, no edema Gastrointestinal (Abdomen): normal bowel sounds, soft, nontender, no hepatosplenomegaly Musculoskeletal: no cyanosis or clubbing, extremities motor strength 5/5 Skin: no rashes, warm and dry Neurologic: PERRL, EOMI, accommodation nl, no face palsy, no dysarthria Psychiatric: A+Ox3, euthymic affect Results & Data Results & Data ([facility]) Vital Signs (Past 12 Hours) Vital Signs Temp Pulse Resp BP BP Pulse Ox 08/08/19 11:32 36.4 C L 78 19 133/63 95 08/08/19 04:14 36.5 C 82 16 135/67 92 (1) Hypertension Hypertension type: unspecified Qualified Code(s): I10 - Essential (primary) hypertension
[2019-08-08 12:32] LABS: Appearance Urine Clear (Clear); Bilirubin Urine Negative (Negative); Blood Urine Negative (Negative); Color Urine Yellow; Glucose Urine UA Negative (Negative); Ketones Urine Negative (Negative); Leukocyte Esterase Urine Negative (Negative); Nitrite Urine Negative (Negative); Protein Urine Negative (Negative); Specific Gravity Urine 1.021 (1.000-1.030); Urobilinogen Urine Negative (Negative)
[2019-08-08] MEDS: POLYETHYLENE (MIRALAX) 17 GM PACK PO PRN (21:19)
[2019-08-08] MEDS: TAMSULOSIN HCL 0.4 MG CAP PO SCH (21:33)
[2019-08-08] MEDS: FINASTERIDE 5 MG TAB PO SCH (21:33)
[2019-08-08] MEDS: MIRTAZAPINE SOLTAB 15 MG PO SCH (21:34)
[2019-08-09 06:35] LABS: BUN Creatinine Ratio 28.1 (10-20); Calcium 8.7 mg/dl (8.5-10.1); Creatinine Clr Calc Pharmacy 35.2 ml/min; Est GFR (African American) 61.3; Est GFR (Non-African American) 52.9
[2019-08-09] MEDS: ATORVASTATIN 10 MG TAB PO SCH (08:20)
[2019-08-09] MEDS: HYDROCORTISONE 10 MG TAB PO SCH (08:20)
[2019-08-09] MEDS: DOXYCYCLINE HYCLATE 100 MG CAP PO SCH ×2 (08:20→21:11)
[2019-08-09] MEDS: ASPIRIN 81 MG ECTAB PO SCH (08:20)
[2019-08-09] MEDS: AMLODIPINE BESYLATE 5 MG TAB PO SCH (08:20)
[2019-08-09] MEDS: BENZONATATE 100 MG CAPSULE PO SCH ×3 (08:20→21:11)
[2019-08-09] MEDS: AMIODARONE 200 MG TAB PO SCH (08:21)
--- NOTE | 2019-08-09 09:42 | Cardiology Progress Note ---
Date of Service August 09, 2019 Assessment & Plan (1) COPD (chronic obstructive pulmonary disease): (2) Orthostatic hypotension: (3) Hyponatremia: (4) Nonischemic cardiomyopathy: (5) Chronic systolic CHF (congestive heart failure), NYHA class 4: The patient is on Flomax which in the elderly can cause orthostatic hypotension. I will place that on hold. He does not examine like he is volume overloaded and I am going to decrease his diuretics. Otherwise he is clinically stable. Subjective The patient is resting comfortably. He has no new complaints today. Review of Systems Review of Systems: All systems reviewed & are unremarkable except as noted in HPI & below Nothing additional to add. Physical Exam Physical Exam: General: no acute distress and stated age Head: normocephalic, no masses, lesions, tenderness or abnormalities Eyes: conjunctiva are pink and non-injected, sclera clear Neck: supple, no adenopathy, no bruits, normal jugular venous pulse, no hepatojugular reflux Chest: normal shape and normal respiratory effort Lungs: clear to auscultation and percussion Cardiac Exam: - regular rate & rhythm, no murmurs gallops or rubs - normal S1, normal S2 Pulses: 2(+) throughout Abdomen: abdomen soft, non-tender, no abnormal masses and no hepatosplenomegaly Musculoskeletal: no gait disturbance, no joint inflammation, no deforming arthritis Extremities: no edema and no cyanosis Neuro: grossly normal exam Results & Data Vital Signs (Past 12 Hours) Vital Signs Temp Pulse Pulse Resp BP Pulse Ox 08/09/19 08:00 71 08/09/19 06:45 36.3 C L 79 19 150/76 H 96 08/09/19 03:31 36.5 C 75 19 143/73 H 96 08/09/19 00:00 77 08/08/19 23:25 36.7 C 75 19 133/73 93 Laboratory Results Laboratory Results - last 24 hr 08/08/19 08/09/19 12:20 05:37 Sodium 133 L Potassium 4.0 Chloride 101 Carbon Dioxide 33 H Anion Gap -1.0 L BUN 35 H Creatinine 1.25 D Est Cr Clr Drug Dosing 35.2 Est GFR ( Amer) 61.3 Est GFR (Non-Af Amer) 52.9 BUN/Creatinine Ratio 28.1 H Glucose 106 H Calcium 8.7 Urine Color Yellow Urine Appearance Clear Urine pH 5.0 Ur Specific Caspian 1.021 Urine Protein Negative Urine Glucose (UA) Negative Urine Ketones Negative Urine Blood Negative Urine Nitrite Negative Urine Bilirubin Negative Urine Urobilinogen Negative Ur Leukocyte Esterase Negative Medications Administered Current Inpatient Medications Acetaminophen (Tylenol) 650 mg PO Q4H PRN PRN Reason: Pain or Fever Stop: 09/05/19 15:58 Al Hydrox/Mg Hydrox/Simethicone (Maalox) 15 ml PO Q4H PRN PRN Reason: Dyspepsia Stop: 09/05/19 15:58 Albuterol (Duoneb) 3 ml NEB QIDR PRN PRN Reason: whezze Stop: 09/05/19 16:14 Amiod[facility]one [facility] ([facility]) [facility] [place]: 09/06/19 08:59 Last Admin: 08/09/19 08:21 Dose: 200 mg Documented by: Amlodipine Besylate (Norvasc) [facility] [place] Stop: 09/05/19 16:29 Last Admin: 08/09/19 08:20 Dose: 2.5 mg Documented by: Aspirin (Ecotrin Ectab) 81 [facility] [place] Stop: 09/06/19 08:59 Last Admin: 08/09/19 08:20 Dose: 81 mg Documented by: Atorvastatin Calcium (Lipitor) 10 mg PO QAM [facility] Stop: 09/06/19 08:59 Last Admin: 08/09/19 08:20 Dose: 10 mg Documented by: Benzonatate (Tessalon Perle) 100 mg PO TID [facility] Stop: 09/05/19 20:59 Last Admin: 08/09/19 08:20 Dose: 100 mg Documented by: Doxycycline Hyclate (Vibramycin) 100 mg PO BID [facility] Stop: 08/13/19 20:59 Last Admin: 08/09/19 08:20 Dose: 100 mg Documented by: Finasteride (Proscar) 5 mg PO HS [facility] Stop: 09/05/19 20:59 Last Admin: 08/08/19 21:33 Dose: 5 mg Documented by: Hydrocortisone (Cortef) 2.5 mg PO DAILY [facility] Stop: 09/08/19 08:59 Last Admin: 08/09/19 08:20 Dose: 2.5 mg Documented by: Furosemide 20 mg/ Syringe 2 mls @ 4 mls/min IV BID17 [facility] Stop: 09/06/19 08:59 Last Admin: 08/07/19 09:15 Dose: 4 mls/min Documented by: Magnesium Hydroxide (Milk Of Magnesia) 30 ml PO Q12H PRN PRN Reason: Constipation Stop: 09/05/19 15:58 Midodrine (Proamatine) 2.5 mg PO BID@0800,1400 PRN PRN Reason: Hypotension Stop: 09/05/19 16:29 Mirtazapine (Remeron Solutab) 45 mg PO HS [facility] Stop: 09/05/19 20:59 Last Admin: 08/08/19 21:34 Dose: 45 mg Documented by: Polyethylene Glycol (Miralax Powder Packet) 17 gm PO DAILY PRN PRN Reason: Constipation Stop: 09/05/19 15:58 Last Admin: 08/08/19 21:19 Dose: 17 gm Documented by: Potassium Chloride (Klor-Con M20) 20 meq PO BID [facility] Stop: 09/08/19 09:29 Tamsulosin HCl (Flomax) 0.4 mg PO HS [facility] Stop: 09/05/19 20:59 Last Admin: 08/08/19 21:33 Dose: 0.4 mg Documented by: (1) COPD (chronic obstructive pulmonary disease) COPD type: emphysema Emphysema type: unspecified Qualified Code(s): J43.9 - Emphysema, unspecified
[2019-08-09] MEDS: POTASSIUM CHLORIDE 20 MEQ TABCR PO SCH ×2 (10:19→21:11)
--- NOTE | 2019-08-09 13:07 | Nephrology Progress Note ---
Date of Service August 09, 2019 Assessment & Plan (1) CJ (acute kidney injury): Today improved nonoliguric acute renal failure with baseline creatinine 1.0-1.1, as recently as August 06, 2019. On August 06, creatinine was up to 1.5 and today to 1.6. Apart from chronic hyponatremia, other serum chemistries acceptable. With from cardiorenal syndrome. Standing weight August 07 is 55.5 kg. During April admission on May 22, 2019, standing scale weight was 51.7 kg; this was his discharge weight. Urinalysis obtained at admission remarkable for no evidence of microhematuria, dipstick proteinuria, or urine ketones or infection/inflammation. Specimen was however turbid with some perez phous sediment present; difficult to interpret this clinically. Continue daily standing weights Daily basic metabolic panel Will repeat urinalysis with microscopy >> it was bland spite worsened renal function -He had been started on 20 mg IV Lasix twice daily: one and only dose was yesterday AM 0900; also had 40 mg IV x 1 in ER on 08/05; lasix currently on hold; generally takes 20 mg po qAM lasix as OP>>hold lasix for today -History of urinary retention in the past: Will check PVR x1 NH: Also has PRN bladder scan (2) Chronic hyponatremia: Since his discharge in April, the patient has in the interval been started on salt tablets twice daily. These are generally inappropriate for hyponatremia in the heart failure context > he is volume overloaded with progressive sx and new (since April) BL pleural effusions and interstitial edema on CXR, progressive on radiologic exams this month -Salt tablets stopped -daily bmp -Resumed Lasix 20 mg IV twice daily 17 (3) Orthostatic hypotension: Symptoms at times can be severe. Continue midodrine current dose -salt tablets stopped>> this step may worsen this condition > will monitor; so far no worsening -recommend daily or q48 hr orthostatic checks -?consideration of attempting to wean hydrocortisone (4) Acute on chronic HFrEF (heart failure with reduced ejection fraction): as evidenced by worsening dyspnea and functional status, BL pleural effusions and interstitial edema -ordered 1.5L FR, <2 gm daily Na diet -Lasix as above -defer to primary service but recommend attempting to wean or at least reduce d ose of hydrocortisone which can worsen HF -daily standing weights much appreciated and to continue -low threshold to discuss goals of care frankly and or to involve palliative care as overall prognosis grave Admission and Anticipated Discharge Date Admission Date: August 06, 2019 Subjective More subjective dyspnea today and on oxygen when I evaluated him at morning and also last evening per report from patient. No voiding concerns. Did have constipation which is improved now. No nausea vomiting. No edema Review of Systems Review of Systems: All systems reviewed & are unremarkable except as noted in HPI & below Physical Exam Constitutional: well developed and + thin; no acute distress Lying in bed o n oxygen tired Eyes: EOM intact bilaterally ENMT: Ears: no external ear abnormality Nose: no external nose abnormality Mouth: + dry oral mucous membranes Neck: no nuchal rigidity Respiratory: normal respiratory effort and + labored breathing (Very slight); + not able to speak in complete sentence, expiratory phase not prolonged and no paradoxical thoraco-abdominal movemnt Auscultation: + diminished lung sounds (Especially bilateral bases) and + crackles (Very occasional fine) Cardiovascular: RRR, no murmur, no edema Gastrointestinal (Abdomen): Inspection/Auscultation: normal bowel sounds Percussion/Palpation: abdomen soft; abdomen nontender Musculoskeletal: Extremities: strength 5/5 throughout Skin: no rashes, warm and dry Neurologic: Moves all extremities, fluent speech, no tremor Psychiatric: A+Ox3, euthymic affect Results & Data ([facility]) Vital Signs (Past 12 Hours) Vital Signs Temp Pulse Pulse Resp BP Pulse Ox 08/09/19 11:01 36.4 C L 68 18 124/53 L 96 08/09/19 08:00 71 08/09/19 06:45 36.3 C L 79 19 150/76 H 96 08/09/19 03:31 36.5 C 75 19 143/73 H 96 Laboratory Results 08/07/19 07:22 08/09/19 05:37
[2019-08-09] MEDS: FUROSEMIDE 20 MG TAB PO SCH (16:24)
--- NOTE | 2019-08-09 18:11 | Hospitalist Progress Note ---
Date of Service August 09, 2019 Assessment & Plan (1) Acute on chronic HFrEF (heart failure with reduced ejection fraction): nonischemic cardiomyopathy chronically elevated troponin, no chest pain follows [facility]-consulted, appreciate input -chronic systolic CHF NYHA class 4 vol status stable lasix resumed 20 mg PO BID (2) Hypoxia: combination of decompensated CHF /COPD exacerbation resolved on room air SEVERE PROTEIN CALORIE MALNUTRITION : BMI 17.7 with significant wt loss Nutrition consulted appreciate input cont dietary supplement diet liberalized to regular slippery diet as per prior speech recommendation (3) COPD exacerbation: Coughing with Multifactorial etiologies from: Acute onChronic Congestive Heart Failure Pulmonary Artery Hypertension Possible COPD exacerbation -admitted with cough with productive sputum , SOB continue oral doxycycline to complete on 08/08-for possible bronchitis no wheeze change Neb tx to PRN (4) Nonischemic cardiomyopathy: .Minimal CAD with patent coronary anatomy on cardiac catheterization performed October, .Status post implantation of biventricular pacemaker AICD 11/21/2018 with pocket infection and removal of AICD in Dec 2018 Last echo 04/2019 revealed EF 20-25%, severe global hypokinesis, LV severely reduced baseline NYHA class 4 CHF with significant deconditioning repeat ECHO this admission show worsening of cardiomyopathy reduced EF 15-20% (5) Chronic hyponatremia: na level improved 133 Salt tab d/yovani as it may contribute to vol overload /CHF decompensation nephrology consulted appreciate input ACUTE RENAL FAILURE ON CKD STAGE 3 : resolved renal function improved to baseline lasix resumed (6) Orthostatic hypotension: pt with hx of orthostatic hypotension which has limited cardiomyopathy therapy follows Dr. Henderson, is in the process of weaning of midodrine due to hypertension midodrine ordered for PRN SBP < 100 D/c Flomax (7) Hypertension: started on amlodipine 2.5mg daily which may offer benefit in treating pulmonary artery hypertension on Midodrine for orthostatic Hypotension (8) NSVT (nonsustained ventricular tachycardia): continue amiodarone (9) BPH (benign prostatic hyperplasia): continue proscar D/c Flomax for orthostatic hypotension (10) Dyslipidemia: continue statin (11) DVT prophylaxis: Lovenox Disposition: monitor in PCU plan to dc home in next 1-2 days Follow up: PCP Dr. Godfrey upon discharge Admission and Anticipated Discharge Date Admission Date: August 06, 2019 Subjective pt developed SOB CONNELLY requiring supplental 02 no complain of chest pain or chest heaviness, no cough Lasix resumed today Physical Exam Constitutional: WD/WN, vitals as above + ill appearing and + thin; no acute distress Eyes: PERRL, conjunctivae normal, anicteric sclerae ENMT: external ear and nose normal, oropharynx normal Neck: trachea midline, no thyromegaly Respiratory: normal respiratory effort; no respiratory distress Auscultation: + wheezes Cardiovascular: RRR, no murmur, no edema Gastrointestinal (Abdomen): normal bowel sounds, soft, nontender, no hepatosplenomegaly Musculoskeletal: no cyanosis or clubbing, extremities motor strength 5/5 Skin: no rashes, warm and dry Neurologic: PERRL, EOMI, accommodation nl, no face palsy, no dysarthria Psychiatric: A+Ox3, euthymic affect Results & Data Results & Data ([facility]) Vital Signs (Past 12 Hours) Vital Signs Temp Pulse Pulse Resp BP BP Pulse Ox 08/09/19 15:13 36.5 C 62 17 119/52 L 98 08/09/19 11:01 36.4 C L 68 18 124/53 L 96 08/09/19 08:00 71 08/09/19 06:45 36.3 C L 79 19 150/76 H 96 (1) Hypertension Hypertension type: unspecified Qualified Code(s): I10 - Essential (primary) hypertension
[2019-08-09] MEDS: MIRTAZAPINE SOLTAB 15 MG PO SCH (21:10)
[2019-08-09] MEDS: FINASTERIDE 5 MG TAB PO SCH (21:10)
[2019-08-10 06:24] LABS: Calcium 8.7 mg/dl (8.5-10.1); Creatinine Clr Calc Pharmacy 34.6 ml/min; Est GFR (African American) 63.8
--- NOTE | 2019-08-10 08:12 | XRay Report ---
SINGLE VIEW CHEST CLINICAL HISTORY: Dyspnea. FINDINGS: An AP, portable, upright chest radiograph is compared to study dated 08/06/2019 and correlat ed with chest CT dated 05/07/2019. The examination is degraded by portable technique and patient rotat ion. The heart is enlarged noting atherosclerotic calcification of the thoracic aorta. There is pulmo nary vascular congestion. Interstitial edema has improved from previous. There are layering pleural e ffusions with bibasilar consolidation. No pneumothorax is seen. The skeletal structures are osteopeni c. The bony thorax is grossly intact. IMPRESSION: 1. Cardiomegaly with evidence of congestive failure. Interstitial edema has modestly improved from . 2. Layering pleural effusions with bibasilar consolidation. ACT 112: Negative or not required by law. Electronically signed by: Dustin Rosales M.D. 08/10/2019 8:10 AM
[2019-08-10] MEDS: BENZONATATE 100 MG CAPSULE PO SCH ×3 (08:22→20:25)
[2019-08-10] MEDS: POTASSIUM CHLORIDE 20 MEQ TABCR PO SCH (08:22)
[2019-08-10] MEDS: FUROSEMIDE 20 MG TAB PO SCH ×2 (08:22→16:53)
[2019-08-10] MEDS: DOXYCYCLINE HYCLATE 100 MG CAP PO SCH ×2 (08:22→20:24)
[2019-08-10] MEDS: ASPIRIN 81 MG ECTAB PO SCH (08:23)
[2019-08-10] MEDS: HYDROCORTISONE 10 MG TAB PO SCH (08:23)
[2019-08-10] MEDS: ATORVASTATIN 10 MG TAB PO SCH (08:23)
[2019-08-10] MEDS: AMIODARONE 200 MG TAB PO SCH (08:23)
[2019-08-10] MEDS: AMLODIPINE BESYLATE 5 MG TAB PO SCH (08:23)
--- NOTE | 2019-08-10 10:29 | Nephrology Progress Note ---
Date of Service August 10, 2019 Assessment & Plan (1) CJ (acute kidney injury): Today improved nonoliguric acute renal failure with baseline creatinine 1.0-1.1, as recently as August 06, 2019. Peak creatinine this admission on August 07 to 1.6. Apart from chronic hyponatremia, other serum chemistries acceptable. from cardiorenal syndrome. Standing weight August 07 is 55.5 kg, with marked drop August 09 to 52.9 kg. During April admission on May 22, 2019, standing scale weight was 51.7 kg; this was his discharge weight. Urinalysis obtained at admission remarkable for no evidence of microhematuria, dipstick proteinuria, or urine ketones or infection/inflammation. Specimen was however turbid with some amorphous sediment present; difficult to interpret this clinically. Continue daily standing weights Daily basic metabolic panel Repeat urinalysis bland spite worsened renal function -Lasix regimen currently 20 mg oral twice daily 17 as of last evening, along with 20 mEq twice daily potassium: Continue same Lasix but lowered potassium dosing to 10 mEq twice daily -History of urinary retention in the past: Will check PVR x1 [place]: Also has PRN bladder scan; no concern for urinary retention so far (2) Chronic hyponatremia: Since his discharge in April, the patient had in the interval been started on salt tablets twice daily. These are generally inappropriate for hyponatremia in the heart failure context > he is volume overloaded with progressive sx and new (since April) BL pleural effusions and interstitial edema on CXR, progressive on radiologic exams this month -Salt tablets stopped -daily bmp -Lasix dosing as above (3) Orthostatic hypotension: Symptoms at times can be severe. Midodrine currently on hold and he appears to be tolerating this -salt tablets stopped>> this step may worsen this condition > will monitor; so far no worsening -recommend daily or q48 hr orthostatic checks -?consideration of attempting to wean hydrocortisone; for now though no recurrence to date of orthostatic symptoms (4) Acute on chronic HFrEF (heart failure with reduced ejection fraction): as evidenced by worsening dyspnea and functional status, BL pleural effusions and interstitial edema -ordered 1.5L FR, <2 gm daily Na diet -Lasix as above -daily standing weights much appreciated and to continue -low threshold to discuss goals of care frankly and or to involve palliative care as overall prognosis grave Admission and Anticipated Discharge Date Admission Date: August 06, 2019 Subjective Seen on rounds this morning at approximately 9:20 AM. No complaints of worsening dyspnea, orthostatic symptoms, worsening p.o. intake or voiding concerns. Review of Systems Review of Systems: All systems reviewed & are unremarkable except as noted in HPI & below Physical Exam Constitutional: well developed and + thin; no acute distress Sitting up in bed on oxygen nasal cannula Eyes: EOM intact bilaterally ENMT: Ears: no external ear abnormality Nose: no external nose abnormality Mouth: + dry oral mucous membranes Neck: no nuchal rigidity Respiratory: normal respiratory effort and + labored breathing (Dyspneic with speech); + not able to speak in complete sentence, expiratory phase not prolonged and no paradoxical thoraco-abdominal movemnt Auscultation: + diminished lung sounds (Especially bilateral bases) and + rhonchi (Occasional) Cardiovascular: RRR, no murmur, no edema Gastrointestinal (Abdomen): Inspection/Auscultation: normal bowel sounds Percussion/Palpation: abdomen soft; abdomen nontender Musculoskeletal: Extremities: strength 5/5 throughout Skin: no rashes, warm and dry Neurologic: Moves all extremities, mild generalized weakness but able to move maneuver for exam, though in speech, no tremor Psychiatric: A+Ox3, euthymic affect Results & Data ([facility]) Vital Signs (Past 12 Hours) Vital Signs Temp Pulse Pulse Pulse Resp BP Pulse Ox 08/10/19 08:56 62 08/10/19 07:13 36.5 C 62 18 142/66 H 99 08/10/19 04:23 36.5 C 75 18 148/71 H 96 08/10/19 00:00 71 08/09/19 23:37 36.4 C L 65 20 123/52 L 96 Laboratory Results 08/07/19 07:22 08/10/19 05:46
--- NOTE | 2019-08-10 12:04 | Cardiology Progress Note ---
Date of Service August 10, 2019 Assessment & Plan (1) Chronic systolic CHF (congestive heart failure), NYHA class 4: (2) Nonischemic cardiomyopathy: (3) COPD exacerbation: Patient is well-known to the undersigned. In the summer 2018 he was admitted for shortness of breath and was diagnosed with severe left ventricular systolic dysfunction, due to a nonischemic cardiomyopathy in the setting of chronic left bundle branch block. At the time of presentation, he already had advanced symptoms and was cachectic. A biventricular pacemaker/AICD was subsequently placed, but removed about a month later due to pocket infection. The patient's left ventricular systolic function, and clinical symptoms however has not improved with that month of cardiac resynchronization therapy. I have concerns that his heart failure is end-stage. He has difficulty tolerating medications. Due to symptoms of orthostatic hypotension, he had not been on the typical regimen for heart failure, and was on midodrine. Recently his blood pressures are improved, and midodrine has been weaned, it is ordered as an as needed medication, and he has not received it during his hospital stay and his blood pressure stable. Agree with recent medication change of holding off on his Flomax to see if this helps. Diuretic use has been limited due to orthostatic hypotension and hyponatremia. At present, sodium levels are stable on low-dose furosemide. Agree with nephrology , that as some point could consider weaning hydrocortisone however, will continue with same treatment as present , as he has made some progress to date. Will discuss starting pharmacologic DVT prophylaxis perhaps subcutaneous heparin or low-dose Lovenox daily, as he is at significant risk given his history of heart failure and his stasis. I will call his daughter and update her by phone regarding his current progress. Subjective Chief complaint: Follow-up shortness of breath and dizziness Subjective: Patient notes shortness of breath this morning. Denies lightheadedness or dizziness. Telemetry reveals sinus rhythm at 75 bpm with left bundle branch block and occasional PVCs. Review of Systems Review of Systems: All systems reviewed & are unremarkable except as noted in HPI & below Physical Exam Physical Exam: Temp Pulse Resp BP Pulse Ox 36.5 C 69 19 131/58 L 98 08/10/19 11:02 08/10/19 11:02 08/10/19 11:02 08/10/19 11:02 08/10/19 11:02 Constitutional: + cachectic Respiratory: Auscultation: + diminished lung sounds (Decreased breath sounds in the bases bilaterally) Cardiovascular: Rate/Rhythm: regular rate Heart Sounds: + murmur (1/6 m) Vessels: no JVD Extremities: no edema Results & Data Vital Signs (Past 12 Hours) Vital Signs Temp Pulse Pulse Pulse Resp BP Pulse Ox 08/10/19 11:02 36.5 C 69 19 131/58 L 98 08/10/19 08:56 62 08/10/19 07:13 36.5 C 62 18 142/66 H 99 08/10/19 04:23 36.5 C 75 18 148/71 H 96 08/10/19 00:00 71 Laboratory Results Comprehensive Metabolic Panel 08/10/19 Range/Units 05:46 Sodium 135 L (136-145) mmol/L Potassium 4.0 (3.5-5.1) mmol/L Chloride 101 (98-107) mmol/L Carbon Dioxide 33 H (21-32) mmol/L BUN 31 H (7-18) mg/dl Creatinine 1.21 (0.6-1.4) mg/dl Glucose 95 (70-99) mg/dl Calcium 8.7 (8.5-10.1) mg/dl Intake and Output 08/09/19 08/10/19 08/10/19 22:59 06:59 14:59 Intake Total 120 / 750 150 / 750 Output Total 150 / 1450 1300 / 1450 Balance -30 / -700 -1150 / -700 Intake: Oral 120 / 750 150 / 750 Output: Urine 150 / 1450 1300 / 1450 Other: Weight 52.9 kg
[2019-08-10] MEDS: HEPARIN SOD 5,000 UNIT/0.5 ML VIAL SQ SCH ×2 (13:50→20:25)
--- NOTE | 2019-08-10 17:14 | Hospitalist Progress Note ---
Date of Service August 10, 2019 Assessment & Plan (1) Acute on chronic HFrEF (heart failure with reduced ejection fraction): nonischemic cardiomyopathy chronically elevated troponin, no chest pain follows [facility]-consulted, appreciate input -chronic systolic CHF NYHA class 4 vol status stable lasix resumed 20 mg PO BID / with 20 mEq twice daily monitor in PCU next 24 hrs to assess renal function plan to discharge home on Monday (2) Hypoxia: combination of decompensated CHF /COPD exacerbation requiring 2 L 02 via nasal canula given end stage /severe CHF pt will benefit with home 02 to reduce cardiac load /may prevent SEVERE PROTEIN CALORIE MALNUTRITION : BMI 17.7 with significant wt loss Nutrition consulted appreciate input cont dietary supplement diet liberalized to regular slippery diet as per prior speech recommendation (3) COPD exacerbation: Coughing with Multifactorial etiologies from: Acute onChronic Congestive Heart Failure Pulmonary Artery Hypertension Possible COPD exacerbation -admitted with cough with productive sputum , SOB symptom has resolved continue oral doxycycline to complete on 08/08-for possible bronchitis no wheeze changed Neb tx to PRN (4) Nonischemic cardiomyopathy: .Minimal CAD with patent coronary anatomy on cardiac catheterization performed October, .Status post implantation of biventricular pacemaker AICD 11/21/2018 with pocket infection and removal of AICD in Dec 2018 Last echo 04/2019 revealed EF 20-25%, severe global hypokinesis, LV severely reduced baseline NYHA class 4 CHF with significant deconditioning repeat ECHO this admission show worsening of cardiomyopathy reduced EF 15-20% (5) Chronic hyponatremia: na level improved 133 Salt tab d/yovani as it may contribute to vol overload /CHF decompensation nephrology consulted appreciate input ACUTE RENAL FAILURE ON CKD STAGE 3 : resolved renal function improved to baseline lasix resumed 20 mg PO BID with supplemental potassium (6) Orthostatic hypotension: pt with hx of orthostatic hypotension which has limited cardiomyopathy therapy D/c Flomax BP remains stable weaned off Hydrocortisone D/c Midodrine (7) Hypertension: started on amlodipine 2.5mg daily which may offer benefit in treating pulmonary artery hypertension on Midodrine D/yovani (8) NSVT (nonsustained ventricular tachycardia): continue amiodarone (9) BPH (benign prostatic hyperplasia): continue proscar D/c Flomax for orthostatic hypotension (10) Dyslipidemia: continue statin (11) DVT prophylaxis: Lovenox Disposition: monitor in PCU plan to dc home in next 1-2 days Follow up: PCP Dr. Godfrey upon discharge Admission and Anticipated Discharge Date Admission Date: August 06, 2019 Subjective feels ok denies of shortness of breath or orthopnea no cough no fever or chills requiring 2 L 02 via nasal canula ( pt will benefit with home 02 ) will need 2 step exercise prior to discharge home Physical Exam Constitutional: WD/WN, vitals as above + ill appearing and + thin; no acute distress Eyes: PERRL, conjunctivae normal, anicteric sclerae ENMT: external ear and nose normal, oropharynx normal Neck: trachea midline, no thyromegaly Respiratory: normal respiratory effort; no respiratory distress and no cough Auscultation: + crackles Cardiovascular: RRR, no murmur, no edema Gastrointestinal (Abdomen): normal bowel sounds, soft, nontender, no he patosplenomegaly Musculoskeletal: no cyanosis or clubbing, extremities motor strength 5/5 Skin: no rashes, warm and dry Neurologic: PERRL, EOMI, accommodation nl, no face palsy, no dysarthria Psychiatric: A+Ox3, euthymic affect Results & Data Results & Data ([facility]) Vital Signs (Past 12 Hours) Vital Signs Temp Pulse Pulse Resp BP Pulse Ox 08/10/19 15:32 36.4 C L 67 18 121/68 97 08/10/19 14:46 61 08/10/19 11:02 36.5 C 69 19 131/58 L 98 08/10/19 08:56 62 08/10/19 07:13 36.5 C 62 18 142/66 H 99 (1) Hypertension Hypertension type: unspecified Qualified Code(s): I10 - Essential (primary) hypertension
[2019-08-10] MEDS: POLYETHYLENE (MIRALAX) 17 GM PACK PO PRN (20:23)
[2019-08-10] MEDS: FINASTERIDE 5 MG TAB PO SCH (20:24)
[2019-08-10] MEDS: POTASSIUM CHLORIDE 10 MEQ TABCR PO SCH (20:24)
[2019-08-10] MEDS: MIRTAZAPINE SOLTAB 15 MG PO SCH (20:24)
[2019-08-11] MEDS: HEPARIN SOD 5,000 UNIT/0.5 ML VIAL SQ SCH ×3 (06:11→21:28)
[2019-08-11] MEDS: BENZONATATE 100 MG CAPSULE PO SCH ×3 (08:04→21:29)
[2019-08-11] MEDS: ASPIRIN 81 MG ECTAB PO SCH (08:05)
[2019-08-11] MEDS: AMIODARONE 200 MG TAB PO SCH (08:05)
[2019-08-11] MEDS: POTASSIUM CHLORIDE 10 MEQ TABCR PO SCH (08:05)
[2019-08-11] MEDS: FUROSEMIDE 20 MG TAB PO SCH ×2 (08:05→16:34)
[2019-08-11] MEDS: ATORVASTATIN 10 MG TAB PO SCH (08:05)
[2019-08-11] MEDS: DOXYCYCLINE HYCLATE 100 MG CAP PO SCH ×2 (08:05→21:28)
[2019-08-11] MEDS: AMLODIPINE BESYLATE 5 MG TAB PO SCH (08:06)
[2019-08-11 08:11] LABS: BUN Creatinine Ratio 26.3 (10-20); Calcium 8.8 mg/dl (8.5-10.1); Creatinine Clr Calc Pharmacy 35.9 ml/min; Est GFR (African American) 67.8; Est GFR (Non-African American) 58.5; Potassium 3.5 mmol/L (3.5-5.1)
--- NOTE | 2019-08-11 11:28 | Cardiology Progress Note ---
Date of Service August 11, 2019 Assessment & Plan (1) Acute on chronic HFrEF (heart failure with reduced ejection fraction): (2) Nonischemic cardiomyopathy: Off Midodrine with stable BP. Now off hydrocortisone. Off flomax. Continue ASA, furosemide 20 mg PO BID. Reduce amiodarone to 100 mg daily , perhaps this will help nausea. Not on ACEI , ARB due to history of intolerance, low BP in the past. I discussed with patient , that I feel he has end stage congestive heart failure and discussed future considerations of palliative care approach. I do not think he is prepared for this now, however, wanted to make my opinion that I think his prognosis is about 6 months. I attempted to reach his daughter again as I have kept her updated at past admissions, and she typically accompanies him to his outpatient visits. . The number goes to [employer] and I am unable to leave a message as the "mailbox is full". (3) COPD exacerbation: Continue course of doxycycline. DVT prophylaxis: Now on SQ heparin. Subjective CC: follow up shortness of breath. Subjective: Denies SOB, however, has been mostly bedbound. Notes nausea after taking medications. Denies lightheadedness with standing. Telemetry reveals SR in the 60-70s with LBBB. Less PVCs than had been observed on prior hospitalizations. Review of Systems Review of Systems: All systems reviewed & are unremarkable except as noted in HPI & below Physical Exam Physical Exam: Temp Pulse Resp BP Pulse Ox 36.7 C 76 16 128/61 91 08/11/19 08:02 08/11/19 08:02 08/11/19 04:59 08/11/19 08:02 08/11/19 08:02 Constitutional: + cachectic Respiratory: normal respiratory effort; no respiratory distress Auscultation: no crackles and no rales Cardiovascular: Rate/Rhythm: regular rate Heart Sounds: + murmur (1/6 SM) Vessels: no JVD Extremities: no edema Gastrointestinal (Abdomen): normal bowel sounds, soft, nontender, no hepatosplenomegaly Neurologic: PERRL, EOMI, accommodation nl, no face palsy, no dysarthria Results & Data Vital Signs (Past 12 Hours) Vital Signs Temp Pulse Pulse Pulse Resp BP Pulse Ox 08/11/19 08:02 36.7 C 76 128/61 91 08/11/19 07:07 64 08/11/19 04:59 36.3 C L 60 16 141/67 H 92 08/10/19 23:48 36.4 C L 65 20 129/49 L 93 Laboratory Results Comprehensive Metabolic Panel 08/11/19 Range/Units 07:03 Sodium 138 (136-145) mmol/L Potassium 3.5 (3.5-5.1) mmol/L Chloride 99 (98-107) mmol/L Carbon Dioxide 35 H (21-32) mmol/L BUN 30 H (7-18) mg/dl Creatinine 1.15 (0.6-1.4) mg/dl Glucose 102 H (70-99) mg/dl Calcium 8.8 (8.5-10.1) mg/dl Intake and Output 08/10/19 08/11/19 08/11/19 22:59 06:59 14:59 Intake Total 300 / 670 50 / 670 Output Total 650 / 1900 500 / 1900 Balance -350 / -1230 -450 / -1230 Intake: Oral 300 / 670 50 / 670 Output: Urine 650 / 1900 500 / 1900 Other: Weight 52.2 kg
--- NOTE | 2019-08-11 14:35 | Nephrology Progress Note ---
Date of Service August 11, 2019 Assessment & Plan (1) CJ (acute kidney injury): Today improved nonoliguric acute renal failure with baseline creatinine 1.0-1.1, as recently as August 06, 2019. Peak creatinine this admission on August 07 to 1.6. Apart from chronic hyponatremia, other serum chemistries acceptable. from cardiorenal syndrome. Standing weight August 07 is 55.5 kg, with marked drop August 09 to 52.9 kg>52.2 08/10. During April admission on May 22, 2019, standing scale weight was 51.7 kg; this was his discharge weight. Urinalysis obtained at admission remarkable for no evidence of microhematuria, dipstick proteinuria, or urine ketones or infection/inflammation. Specimen was however turbid with some amorphous sediment present; difficult to interpret this clinically. Continue daily standing weights Daily basic metabolic panel Repeat urinalysis bland spite worsened renal function -Lasix regimen currently 20 mg oral twice daily 17 cont same but will increase po K back to 20 mEq twice daily potassium -History of urinary retention in the past: Will check PVR x1 DE: Also has PRN bladder scan; no concern for urinary retention so far (2) Chronic hyponatremia: Since his discharge in April, the patient had in the interval been started on salt tablets twice daily. These are generally inappropriate for hyponatremia in the heart failure context > he presented this admission volume overloaded with progressive sx and new (since April) BL pleural effusions and interstitial edema on CXR, progressive on radiologic exams this month -Salt tablets stopped -daily bmp -Lasix dosing as above (3) Orthostatic hypotension: Symptoms at times can be severe. Midodrine currently on hold and he appears to be tolerating this -salt tablets stopped>> this step may worsen this condition > will monitor; so far no worsening -recommend daily or q48 hr orthostatic checks -has now also stopped hydrocortisone he came in on and appears to be tolerating (4) Acute on chronic HFrEF (heart failure with reduced ejection fraction): as evidenced by worsening dyspnea and functional status, BL pleural effusions and interstitial edema -ordered 1.5L FR, <2 gm daily Na diet -Lasix as above -daily standing weights much appreciated and to continue -low threshold to discuss goals of care frankly and or to involve palliative care as overall prognosis grave Admission and Anticipated Discharge Date Admission Date: August 06, 2019 Subjective no complaints of orthostatic hypotension/presyncopal sx; thinks breathing a bit better and today on RA; no edema, no n/v, no voiding c/o, no chest pain Review of Systems Review of Systems: All systems reviewed & are unremarkable except as noted in HPI & below Physical Exam Constitutional: well developed and + thin; no acute distress sitting in bed on RA Eyes: EOM intact bilaterally ENMT: Ears: no external ear abnormality Nose: no external nose abnormality Mouth: + dry oral mucous membranes Neck: no nuchal rigidity Respiratory: normal respiratory effort and able to speak in complete sentences; no labored breathing (new today), expiratory phase not prolonged and no paradoxical thoraco-abdominal movemnt Auscultation: + diminished lung sounds (Especially bilateral bases), + crackles (bibasilar) and + rhonchi (Occasional) Cardiovascular: RRR, no murmur, no edema Gastrointestinal (Abdomen): Inspection/Auscultation: normal bowel sounds Percussion/Palpation: abdomen soft; abdomen nontender Musculoskeletal: Extremities: strength 5/5 throughout Skin: no rashes, warm and dry Neurologic: alonzo, fluent speech, generalized weakness, no tremor Psychiatric: A+Ox3, euthymic affect Results & Data ([facility]) Vital Signs (Past 12 Hours) Vital Signs Temp Pulse Pulse Resp BP Pulse Ox 08/11/19 12:09 36.4 C L 73 20 129/56 L 92 08/11/19 08:02 36.7 C 76 128/61 91 08/11/19 07:07 64 08/11/19 04:59 36.3 C L 60 16 141/67 H 92 Laboratory Results 08/07/19 07:22 08/11/19 07:03
--- NOTE | 2019-08-11 17:22 | Hospitalist Progress Note ---
Date of Service August 11, 2019 Assessment & Plan (1) Acute on chronic HFrEF (heart failure with reduced ejection fraction): nonischemic cardiomyopathy chronically elevated troponin, no chest pain [facility], appreciate input -chronic systolic CHF NYHA class 4 vol status stable lasix resumed 20 mg PO BID / with 20 mEq twice daily stable to be discharged home toda y (2) Hypoxia: combination of decompensated CHF /COPD exacerbation requiring 2 L 02 via nasal canula given end stage /severe CHF pt will benefit with home 02 to reduce cardiac load /may prevent SEVERE PROTEIN CALORIE MALNUTRITION : BMI 17.7 with significant wt loss Nutrition consulted appreciate input cont dietary supplement diet liberalized to regular slippery diet as per prior speech recommendation (3) COPD exacerbation: Coughing with Multifactorial etiologies from: Acute onChronic Congestive Heart Failure Pulmonary Artery Hypertension Possible COPD exacerbation -admitted with cough with productive sputum , SOB symptom has resolved completed PO Doxycycline no wheeze (4) Nonischemic cardiomyopathy: .Minimal CAD with patent coronary anatomy on cardiac catheterization performed October, .Status post implantation of biventricular pacemaker AICD 11/21/2018 with pocket infection and removal of AICD in Dec 2018 Last echo 04/2019 revealed EF 20-25%, severe global hypokinesis, LV severely reduced baseline NYHA class 4 CHF with significant deconditioning repeat ECHO this admission show worsening of cardiomyopathy reduced EF 15-20% vol status stable with PO lasix will be discharged on Lasix 20 mg BID (5) Chronic hyponatremia: na level improved 133 Salt tab d/yovani as it may contribute to vol overload /CHF decompensation nephrology consulted appreciate input ACUTE RENAL FAILURE ON CKD STAGE 3 : resolved renal function improved to baseline lasix resumed 20 mg PO BID with supplemental potassium (6) Orthostatic hypotension: pt with hx of orthostatic hypotension which has limited cardiomyopathy therapy D/c Flomax BP remains stable weaned off Hydrocortisone D/c Midodrine (7) Hypertension: started on amlodipine 2.5mg daily which may offer benefit in treating pulmonary artery hypertension on Midodrine D/yovani (8) NSVT (nonsustained ventricular tachycardia): continue amiodarone (9) BPH (benign prostatic hyperplasia): continue proscar D/c Flomax for orthostatic hypotension (10) Dyslipidemia: continue statin (11) DVT prophylaxis: Lovenox Disposition: stable to be discharged home today Follow up: PCP Dr. Godfrey upon discharge Admission and Anticipated Discharge Date Admission Date: August 06, 2019 Subjective no complain of sob , no cough no CONNELLY or orthopnea 2 step exercise shows pt dose not need home 02 stable to be discharge today Physical Exam Constitutional: WD/WN, vitals as above + ill appearing and + thin; no acute distress Eyes: PERRL, conjunctivae normal, anicteric sclerae ENMT: external ear and nose normal, oropharynx normal Neck: trachea midline, no thyromegaly Respiratory: normal respiratory effort; no respiratory distress and no cough Auscultation: + crackles Cardiovascular: RRR, no murmur, no edema Gastrointestinal (Abdomen): normal bowel sounds, soft, nontender, no hepatosplenomegaly Musculoskeletal: no cyanosis or clubbing, extremities motor strength 5/5 Skin: no rashes, warm and dry Neurologic: PERRL, EOMI, accommodation nl, no face palsy, no dysarthria Psychiatric: A+Ox3, euthymic affect Results & Data Results & Data ([facility]) Vital Signs (Past 12 Hours) Vital Signs Temp Pulse Pulse Pulse Resp BP Pulse Ox 08/11/19 15:45 36.6 C 67 20 113/48 L 94 08/11/19 15:09 68 08/11/19 12:09 36.4 C L 73 20 129/56 L 92 08/11/19 08:02 36.7 C 76 128/61 91 08/11/19 07:07 64 (1) Hypertension Hypertension type: unspecified Qualified Code(s): I10 - Essential (primary) hypertension
[2019-08-11] MEDS: POTASSIUM CHLORIDE 20 MEQ TABCR PO SCH (21:27)
[2019-08-11] MEDS: FINASTERIDE 5 MG TAB PO SCH (21:28)
[2019-08-11] MEDS: MIRTAZAPINE SOLTAB 15 MG PO SCH (21:28)
[2019-08-12] MEDS: HEPARIN SOD 5,000 UNIT/0.5 ML VIAL SQ SCH ×2 (05:29→14:29)
[2019-08-12 07:26] LABS: BUN Creatinine Ratio 24.7 (10-20); Calcium 8.7 mg/dl (8.5-10.1); Creatinine Clr Calc Pharmacy 34.1 ml/min; Est GFR (African American) 65.1; Est GFR (Non-African American) 56.2; Potassium 3.5 mmol/L (3.5-5.1)
[2019-08-12] MEDS ORDERED: AMIODARONE 200 MG TAB PO SCH (09:00)
[2019-08-12] MEDS: AMLODIPINE BESYLATE 5 MG TAB PO SCH (09:26)
[2019-08-12] MEDS: DOXYCYCLINE HYCLATE 100 MG CAP PO SCH (09:28)
[2019-08-12] MEDS: ATORVASTATIN 10 MG TAB PO SCH (09:29)
[2019-08-12] MEDS: POTASSIUM CHLORIDE 20 MEQ TABCR PO SCH (09:29)
[2019-08-12] MEDS: BENZONATATE 100 MG CAPSULE PO SCH ×2 (09:29→14:29)
[2019-08-12] MEDS: ASPIRIN 81 MG ECTAB PO SCH (09:31)
[2019-08-12] MEDS: FUROSEMIDE 20 MG TAB PO SCH (09:32)
--- NOTE | 2019-08-12 11:20 | Cardiology Progress Note ---
Date of Service August 12, 2019 Assessment & Plan (1) Acute on chronic HFrEF (heart failure with reduced ejection fraction): (2) Nonischemic cardiomyopathy: NYHA functional classed IV symptoms. BP and sodium stable. Pt has advance heart failure, and prognosis is poor. I believe he is as optimized as possible. Recent medication changes included weaning salt tabs and hydrocortisone, and weaning midodrine. He is now on furosemide 20 mg twice daily and his sodium is stable. Amiodarone has been reduced to 100 mg by mouth daily due to complaints of nauseousness. He is not on an HARINI inhibitor or angiotensin receptor da due to history of orthostatic hypotension, candidacy for this treatment will be reassessed in the future as an outpatient. Flomax has been on hold, he is on Proscar. Stable from my perspective for discharge. Subjective Chief complaint: Follow-up shortness of breath and dizziness Subjective: Patient states he feels somewhat improved, he is only been walking as far to the bathroom no. Blood pressure is stable. Telemetry reveals sinus rhythm at 66 bpm with left bundle branch block, very rare PVCs. Physical Exam Physical Exam: Temp Pulse Resp BP Pulse Ox 36.7 C 68 16 145/72 H 94 08/12/19 07:00 08/12/19 07:00 08/12/19 07:00 08/12/19 07:00 08/12/19 07:00 Constitutional: + cachectic Respiratory: normal respiratory effort, lungs clear to auscultation Cardiovascular: RRR, no murmur, no edema Neurologic: PERRL, EOMI, accommodation nl, no face palsy, no dysarthria Results & Data Vital Signs (Past 12 Hours) Vital Signs Temp Pulse Pulse Resp BP Pulse Ox 08/12/19 07:00 36.7 C 68 16 145/72 H 94 08/12/19 05:30 36.6 C 67 18 147/68 H 93 08/11/19 23:54 36.6 C 69 18 145/69 H 94 Laboratory Results Comprehensive Metabolic Panel 08/12/19 Range/Units 06:39 Sodium 136 (136-145) mmol/L Potassium 3.5 (3.5-5.1) mmol/L Chloride 103 (98-107) mmol/L Carbon Dioxide 33 H (21-32) mmol/L BUN 29 H (7-18) mg/dl Creatinine 1.19 (0.6-1.4) mg/dl Glucose 101 H (70-99) mg/dl Calcium 8.7 (8.5-10.1) mg/dl Intake and Output 08/11/19 08/12/19 08/12/19 22:59 06:59 14:59 Intake Total 200 / 370 0 / 370 Output Total 500 / 1050 300 / 1050 Balance -300 / -680 -300 / -680 Intake: Oral 200 / 370 0 / 370 Output: Urine 500 / 1050 300 / 1050 Other: Weight 51.3 kg
--- NOTE | 2019-08-12 13:48 | Nephrology Progress Note ---
Date of Service August 12, 2019 Assessment & Plan (1) CJ (acute kidney injury): Today improved nonoliguric acute renal failure with baseline creatinine 1.0-1.1, as recently as August 06, 2019. Peak creatinine this admission on August 07 to 1.6. Cr down to 1.2. serum chemistries acceptable. from cardiorenal syndrome. Continue daily standing weights Daily basic metabolic panel -Lasix regimen currently 20 mg oral twice daily, cont same even on discharge. -Continue po K 20 mEq twice daily -If discharged, renal follow up with me in 2 weeks via telemedicine (2) Chronic hyponatremia: Due to volume overload. Improved, Na 136 today -daily bmp -Lasix dosing as above (3) Orthostatic hypotension: Symptoms at times can be severe. Midodrine currently on hold and he appears to be tolerating this -has now also stopped hydrocortisone he came in on and appears to be tolerating (4) Acute on chronic HFrEF (heart failure with reduced ejection fraction): as evidenced by worsening dyspnea and functional status, BL pleural effusions and interstitial edema -ordered 1.5L FR, <2 gm daily Na diet -Lasix as above -daily standing weights much appreciated and to continue -low threshold to discuss goals of care frankly and or to involve palliative care as overall prognosis grave Admission and Anticipated Discharge Date Admission Date: August 06, 2019 Subjective Patient feels better. SOB is less. No leg swelling. Cr stable. Review of Systems Review of Systems: All systems reviewed & are unremarkable except as noted in HPI & below Physical Exam Physical Exam: General exam: Appears comfortable, no acute distress HEENT: Pupils are equal and reactive to light Neck: No JVD, neck is supple trachea is midline Respiratory system: Clear breath sounds bilaterally. Gastrointestinal: Abdomen is soft, non distended, non tender, bowel sounds are present CVS: Regular rate and rhythm. No murmurs, rubs or gallops Musculoskeletal: No joint or muscle tenderness Extremities: Non tender, no edema, peripheral pulses are present Neuro: Oriented, no tremors, no focal neurological deficits Skin: No rashes Results & Data ([facility]) Vital Signs (Past 12 Hours) Vital Signs Temp Pulse Pulse Pulse Resp BP Pulse Ox 08/12/19 12:00 36.6 C 70 20 139/70 94 08/12/19 08:00 66 08/12/19 07:00 36.7 C 68 16 145/72 H 94 08/12/19 05:30 36.6 C 67 18 147/68 H 93 Laboratory Results 08/12/19 06:39
--- NOTE | 2019-08-12 13:58 | Discharge Summary ---
Date of Service August 12, 2019 Admission HPI Per Admitting Provider This is an 84-year-old male who has significant past medical history of chronic systolic and diastolic CHF most recent EF 28%, chronic LBBB, nonischemic cardiomyopathy, hyperlipidemia, COPD, history of PVCs/NSVT, malnutrition, BPH, depression, history of tobacco abuse, history of recent AICD/biV pacemaker placement with recent removal secondary to pacer pocket infection presents to ED secondary to worsening SOB and cough x 4 weeks. Of significance pt last seen in ED 08/01, 05/26 to similar sx and started on doxycycline 100mg bid as well as lasix 20mg daily. Influenza negative at that visit. Complains of increasing SOB with exertion and at rest over past 4 weeks that is worsening along with productive cough, occasionally purulent and occasional transparent sputum, wheezing, and nausea. SOB and nausea are chronic for him but feels worsening. He denies any fever, chills, sweats, exposure to sick contacts or contacts with known covid- 19. He denies chest pain, palpitations, emesis, abdominal pain, hemoptysis, change in bowel or urinary habits. He states he has gained weight from 112 to low 120s but states he is trying to gain weight. He drinks boost BID to TID. Denies any peripheral edema, orthopnea or PND. Lives with at home. Does not use O2 at home. Has been complaint with his medications. In ED patient remained hemodynamically stable and afebrile. He did require 2 L of supplemental oxygen via nasal cannula. Lab work notable for WBC 10.40, H&H 13.3 and 39.3, platelet 194, sodium 132, K3.5, BUN 15, creatinine 1.11, glucose 111, troponin 0.070, proBNP 2569. Chest x-ray revealed CHF with interstitial edema and layering pleural effusions with bibasilar consolidation. In ED he received 40 mg IV Lasix, ASA 325 and 4 mg IV Zofran. After reviewing patient's epic chart he does follow closely with cardiology. He recently had telemedicine evaluation on 07/[address] Henderson. At that visit he was classified as NYHA functional class IV. Unfortunately his standard medical therapy for cardiomyopathy has been limited due to orthostatic hypotension. He had been on midodrine for orthostatic hypotension but his blood pressures have been on the higher side and therefore his midodrine was decreased from 2.5 mg 3 times daily to twice daily. Of significance patient has had frequent hospitalizations over the past 12 months. He was hospitalized 05/03 to 05/08 secondary to decompensation of systo lic CHF. Rehospitalized from 05/17 to 05/24 secondary to hyponatremia worsened in setting of recent CHF exacerbation and diuresis. Principal Diagnosis CONGESTIVE HEART FAILURE /ACUTE RENAL FAILURE Discharge Exam Constitutional WD/WN, vitals as above + ill appearing and + thin; no acute distress Eyes PERRL, conjunctivae normal, anicteric sclerae ENMT external ear and nose normal, oropharynx normal Neck trachea midline, no thyromegaly Respiratory normal respiratory effort; no respiratory distress and no cough Auscultation: + crackles Cardiovascular RRR, no murmur, no edema Gastrointestinal (Abdomen) normal bowel sounds, soft, nontender, no hepatosplenomegaly Musculoskeletal no cyanosis or clubbing, extremities motor strength 5/5 Skin no rashes, warm and dry Neurologic PERRL, EOMI, accommodation nl, no face palsy, no dysarthria Psychiatric A+Ox3, euthymic affect Discharge Data Allergies Allergy/AdvReac Type Severity Reaction Status Date / Time No Known Allergies Allergy Unknown Verified 08/06/19 14:10 Consultations 08/06/19 13:48 ED Decision to Admit Stat 08/06/19 15:59 Consult Cardiology Routine Consult Case Management - Discharge Planning Routine 08/08/19 08:00 Consult Nephrology Routine Hospital Course (1) Acute on chronic HFrEF (heart failure with reduced ejection fraction): nonischemic cardiomyopathy chronically elevated troponin, no chest pain follows [facility] cardiology-consulted, appreciate input -chronic systolic CHF NYHA class 4 vol status stable lasix resumed 20 mg PO BID / with 20 mEq twice daily stable to be discharged home today (2) Hypoxia: combination of decompensated CHF /COPD exacerbation requiring 2 L 02 via nasal canula given end stage /severe CHF pt will benefit with home 02 to reduce cardiac load /may prevent SEVERE PROTEIN CALORIE MALNUTRITION : BMI 17.7 with significant wt loss Nutrition consulted appreciate input cont dietary supplement diet liberalized to regular slippery diet as per prior speech recommendation (3) COPD exacerbation: Coughing with Multifactorial etiologies from: Acute onChronic Congestive Heart Failure Pulmonary Artery Hypertension Possible COPD exacerbation -admitted with cough with productive sputum , SOB symptom has resolved continue oral doxycycline to complete on 08/08-for possible bronchitis no wheeze 2 step exercise shows pt does not need home o2 (4) Nonischemic cardiomyopathy: .Minimal CAD with patent coronary anatomy on cardiac catheterization performed October, .Status post implantation of biventricular pacemaker AICD 11/21/2018 with pocket infection and removal of AICD in Dec 2018 Last echo 04/2019 revealed EF 20-25%, severe global hypokinesis, LV severely reduced baseline NYHA class 4 CHF with significant deconditioning repeat ECHO this admission show worsening of cardiomyopathy reduced EF 15-20% vol status stable will be discharged home today with PO Lasix 20 mg BID pt's over all prognosis remains very poor and pt aware will discuss with family physician with next visit about advance directive /goals of care (5) Chronic hyponatremia: na level improved 133 Salt tab d/yovani as it may contribute to vol overload /CHF decompensation nephrology consulted appreciate input ACUTE RENAL FAILURE ON CKD STAGE 3 : resolved renal function improved to baseline lasix resumed 20 mg PO BID with supplemental potassium (6) Orthostatic hypotension: pt with hx of orthostatic hypotension which has limited cardiomyopathy therapy D/c Flomax BP remains stable weaned off Hydrocortisone D/c Midodrine (7) Hypertension: started on amlodipine 2.5mg daily which may offer benefit in treating pulmonary artery hypertension on Midodrine D/yovani (8) NSVT (nonsustained ventricular tachycardia): continue amiodarone (9) BPH (benign prostatic hyperplasia): continue proscar D/c Flomax for orthostatic hypotension (10) Dyslipidemia: continue statin (11) DVT prophylaxis: Lovenox Disposition: stable to be discharged home today Total Time Total Time Spent Total Time Spent (In Minutes): 35 mins Total Time Includes: Examination of the Patient, Discharge Planning, Medication Reconciliation and Communication With Other Providers Discharge Plan Discharge Items Patient Disposition: Home - Home Health Services Reason For Visit: CHF EXACERBATION Discharge Diagnosis: CONGESTIVE HEART FAILURE /ACUTE RENAL FAILURE Activity: Resume your previous activity Non-emergency contact: Primary Care Provider Call non-emergency contact if: you have any medication questions Follow-up/Referrals: Vivi Hart MD, PhD [Physician] - (in 3-4 weeks ) Taylor Lopez DO [Primary Care Provider] - 08/14/19 12:00 pm Diet: Heart Healthy and Low Sodium (2gm) Fluids: 1500ml (6 cups) Ambulatory Orders: Basic Metabolic Panel (Routine) Timeframe: [id number] Location: Determined by Patient Ordered By: Michelle Granados Attending Provider Instructions: Call your Primary Care doctor if any of the following symptoms or problems start or get worse: * Shortness of breath or difficulty breathing * Wake up at night short of breath * Chest pain * Cough * Swelling of your hands, feet, or legs * More fatigued or tired with your normal activity * Palpitations - sudden fast heart beats WEIGHT * Weigh yourself every morning after using the bathroom. * Use the same scale. * Wear the same amount of clothing. * Write your weight down on a chart. * Call your Primary Care doctor if you gain more than 2-3 pounds in 1-2 days. MEDICATIONS * Use this discharge instruction sheet for medication instructions. * Take your medications at the time your doctor ordered. * Do not skip a dose of your medicines. * If you miss a dose of medicine, take it as soon as possible, but DO NOT DOUBLE A DOSE. * Read your medicine information when you get home. * Know all of the side effects of your medicine. If in doubt, ask your pharmacist * Call your Primary Care doctor's office if you have any side effects. * Be sure all of your doctors know what medicine and herbs you take (including cold, flu, and herbal medicine). Take the following with you to your follow-up doctor appointments: * Weight Chart * Medication List * List of questions Do not drink excessive alcohol, beer or wine. Pending Studies at Discharge: Yes Studies:: LAB : BASIC METABOLIC PANEL IN 1 WEEK Stand-Alone Forms: [facility] [employer], Smoking Cessation Medications and DC Order Prescriptions: New potassium chloride [Klor-Con M20] 20 mEq Tablet,Er Particles/Crystals 20 meq PO BID Qty: 60 RF: 0 benzonatate [Tessalon Perles] 100 mg Capsule 100 mg PO TID PRN (Reason: cough) Qty: 60 RF: 0 amlodipine [Norvasc] 5 mg Tablet 2.5 mg PO QAM Qty: 30 RF: 0 Continued polyethylene glycol 3350 17 gram/dose powder 17 gm PO DAILY PRN (Reason: Constipation) RF: 0 atorvastatin 10 mg tablet 10 mg PO QAM RF: 0 aspirin 81 mg Tablet,Delayed Release (Dr/Ec) 81 mg PO QAM RF: 0 mirtazapine 45 mg tablet 45 mg PO HS RF: 0 finasteride 5 mg tablet 5 mg PO HS RF: 0 Changed furosemide 20 mg tablet 20 mg PO BID Qty: 60 RF: 0 amiodarone 200 mg tablet 100 mg PO QAM Qty: 0 RF: 0 Discontinued midodrine 2.5 mg tablet 2.5 mg PO BID RF: 0 tamsulosin 0.4 mg capsule 0.4 mg PO HS RF: 0 doxycycline hyclate 100 mg capsule 100 mg PO BID 7 Days Qty: 14 RF: 0 hydrocortisone 5 mg tablet 2.5 mg PO BID RF: 0 Discharge Orders: Discharge Order (Routine); Ordered 08/12/19 Ordered By: Michelle Cook/Other Patient Handouts: Heart Failure, Low-Salt Choices, Heart Failure Signs of Flare-Up, Heart Failure Tracking Weight, Heart Failure Being Active, Potassium, Amlodipine, Heart Disease Communicate w Partner, Heart Failure Dc, Heart Disease Meds, Heart Failure Baselines, Benzonatate capsules Admission Data Admit Date/Time: 08/06/19 14:18 Attending Provider: Michelle Tyson Admit Provider: Pineda Nichols Primary Care Provider: Taylor Lopez Other Providers: Pineda Nichols ; Roel Kidd ; Vivi Hart ; Mario Alberto Malone Elissa R. ; Africa Gonzalez ; Malgorzata Samuels Other Interventions: Discharge Summary Assessment (RN) Last Done: 08/12/19 13:57 DC Date/Time DO NOT enter until pt leaves facility: 08/12/19 15:38
== END 2019-08-12 15:38 | disposition home or self-care (01) | DRG 291 ==
LOC: ED 11:13 → SUATTDRO 14:18 → 2S 14:18

== ENCOUNTER 2021-06-23 13:55 | Inpatient (IN) ==
--- NOTE | 2021-06-23 14:15 | Emergency Department Note ---
Impression & Plan Acute exacerbation of chronic obstructive pulmonary disease, Hypoxemia ED Provider Note NAME: WENCESLAO WILEY AGE: 86 SEX: M : 1935 ARRIVES VIA: Ambulance INFORMANT: Patient, ED PROVIDER(S): David Wyatt MD Chief Complaint: Shortness of breath HPI: Present patient presents due to concern for shortness of breath which he states is a chronic issue but was acutely worse especially upon waking this morning. The patient states he also had some symptoms yesterday. The patient does complain of productive sputum but states this is primarily secondary to postnasal drip type symptoms. Patient has known history of CHF but is not noticed any leg swelling. He does follow with Dr. Henderson. Patient has had some cough. He is vaccinated for COVID and is a former smoker. The patient does have home O2 but uses it only at nighttime. Patient denies any fevers chills chest pains nausea or vomiting. Patient states he has poor appetite. The patient is vaccinated for COVID-19. Patient states that his symptoms do get worse with ambulation. Denies any history of DVT or PE. Relate he did take his morning medications. Patient does have a former history of being on hospice but that is not currently the case. ROS: See HPI for pertinent positives and negatives. A total of 10 systems were reviewed and otherwise negative. Past medical history: See below Surgical history: See below Social history: See below Physical Exam: GENERAL: Appearance, wearing [employer] wrestling hat, nasal cannula in place, wearing glasses, wearing a mask, non-toxic. EYE EXAM: Normal conjunctiva. PERRL, no anisocoria and EOM's grossly intact w/o pain. OROPHARYNX: Dry mucus membranes. Grossly normal dentition. NECK: Supple, no nuchal rigidity, no adenopathy, non-tender. No signs of meningismus. LUNGS: During expiratory wheezes throughout. Normal chest wall mechanics. HEART: NSR, no MRG. ABDOMEN: Abdomen soft, non-tender, normo-active bowel sounds, no masses, no rebound or guarding. BACK: No CVA TTP. SKIN: No rashes and no bruising. UPPER EXTREMITIES: Upper extremities are grossly normal. LOWER EXTREMITIES: Grossly normal, no edema. Negative Homans' sign bilaterally. NEURO EXAM: A&O x3, cranial nerves II-XII grossly intact, normal speech, moves all 4 extremities on command w/o issue. Differential diagnoses: Reactive airway disease, pneumonia, pneumothorax, COPD, CHF, infections, cardiac ischemia, pulmonary embolism, musculoskeletal, gastrointestinal, as well as other pathologies. Course: Patient was seen and evaluated the bedside. Full history physical exam was performed. EKG interpreted by me Sinus rhythm, rate of 76, wide QRS, left axis deviation, left lower branch block pattern, to inversion in lateral leads. No obvious sgarbossa criteria present. Imaging Studies: See Below Cardiac monitoring: An order was placed for continuous cardiac monitoring. The monitor shows a rate of 82 with sinus rhythm. MDM: Patient was seen due to concern for shortness of breath and hypoxemia. The patient is comfortable on 2 L nasal cannula. Blood work is obtained the patient was treated symptomatically for likely COPD exacerbation as the patient does appear to be a little dry and does not have any evidence of volume overload in his lower extremities. Patient did receive DuoNeb steroids and magnesium. Patient is a white count of 11 with a hemoglobin of 12. Platelet count is unremarkable. Kidney function unremarkable with normal VBG and no evidence of hypercarbia. The patient troponin is not checked. Covid negative. Does x-ray shows cardiomegaly and concern for pulmonary edema with associated pleural effusions. The patient did receive a small med of IV fluids as the patient appeared to be dry on exam. Patient has responded well to his treatments. I did speak with Linnette Velazco PA-C and the patient was admitted by Dr. Moreno. Critical Care: I have personally spent 35 minutes of critical care time in direct management of this patient. This includes bedside care, interpretation of diagnostic studies, and testing, discussion with consultants, patient, and family members, and other require inpatient management activities. This 35 minutes is in excess of all separately billable procedures. 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 Underwent procedure without any complications; monitored overnight and discharged home. 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 11/01/18 = widely patent coronary arteries History of cardiac cath SEPTEMBER 2018 AT [facility] NO STENTS History of cataract surgery BILATERAL History of colonoscopy History of tonsillectomy and adenoidectomy History of total left hip replacement Family History Mother Hypertension Brother FHx: myocardial infarction HALF-BROTHER Sister Kidney transplant status Social History Smoking Status: Former smoker Tobacco Type: Cigarettes Years Smoked: 50; Number of Years Since Quit: 3; Second Hand Exposure: No; Do You Dip or Chew Tobacco: No; Hx Alcohol Use: No Hx Substance Use: No Preferred Language: Venezuelan Communication Ability: Effective Manager Product Design Required: No Beliefs That Will Affect Care: None marital status: Current Living Situation: Spouse Current Living Situation Comment: [employer] current occupational status: retired Other Information That Helps Us Care for You: No Feels Safe at Home: Yes Safety Concerns: Feels Safe At This Time Assistive Devices: Glasses, Hearing Aid - Bilateral, Oxygen - at Night and Walker Assistive Devices Comment: Patient states he does not know how many liters of O2 he wears HS Allergies Allergies Allergy/AdvReac Type Severity Reaction Status Date / Time No Known Allergies Allergy Unknown Verified 06/23/21 16:03 Home Meds Home Medications Medication Instructions Recorded Confirmed aspirin 81 mg tablet,delayed 81 mg PO QAM 10/27/18 06/23/21 release mirtazapine 45 mg tablet 45 mg PO HS 10/27/18 06/23/21 finasteride 5 mg tablet 5 mg PO HS 07/31/19 06/23/21 amlodipine 2.5 mg tablet 2.5 mg PO DAILY 06/23/21 06/23/21 tamsulosin 0.4 mg capsule 0.4 mg PO DAILY 06/23/21 06/23/21 Previous Rx's Medication Instructions Recorded amiodarone 200 mg tablet 100 mg PO QAM #0 tab 08/11/19 Results & Data (ED) Vital Signs Vital Signs - 24 hr 06/23/21 13:46 06/23/21 14:02 06/23/21 14:22 Temperature 36.4 C L Temperature Source Oral Pulse Rate 74 Pulse Rate from SpO2 Sensor 76 Respiratory Rate 18 20 Blood Pressure 127/70 Blood Pressure Mean 89 Pulse Oximetry 90 97 Oxygen Delivery Method Room Air Room Air Oxygen Flow Rate 2 Sepsis Recent Fever Within 48 Hours No Sepsis New/Unexplained Change in Mental Status No Sepsis Action Taken by Nursing No Action Required 06/23/21 14:30 06/23/21 14:40 06/23/21 14:50 Temperature Temperature Source Pulse Rate 106 H 75 65 Pulse Rate from SpO2 Sensor 68 73 62 Respiratory Rate 18 20 18 Blood Pressure Blood Pressure Mean Pulse Oximetry 93 96 95 Oxygen Delivery Method Oxygen Flow Rate Sepsis Recent Fever Within 48 Hours Sepsis New/Unexplained Change in Mental Status Sepsis Action Taken by Nursing 06/23/21 15:00 06/23/21 15:10 06/23/21 15:20 Temperature Temperature Source Pulse Rate 74 74 76 Pulse Rate from SpO2 Sensor 74 69 76 Respiratory Rate 24 20 19 Blood Pressure Blood Pressure Mean Pulse Oximetry 100 100 97 Oxygen Delivery Method Oxygen Flow Rate Sepsis Recent Fever Within 48 Hours Sepsis New/Unexplained Change in Mental Status Sepsis Action Taken by Nursing 06/23/21 15:30 06/23/21 15:40 06/23/21 15:50 Temperature Temperature Source Pulse Rate 75 81 82 Pulse Rate from SpO2 Sensor 75 80 87 Respiratory Rate 14 24 20 Blood Pressure Blood Pressure Mean Pulse Oximetry 97 100 96 Oxygen Delivery Method Oxygen Flow Rate Sepsis Recent Fever Within 48 Hours Sepsis New/Unexplained Change in Mental Status Sepsis Action Taken by Nursing 06/23/21 16:00 06/23/21 16:10 06/23/21 16:20 Temperature Temperature Source Pulse Rate 77 78 86 Pulse Rate from SpO2 Sensor 77 75 80 Respiratory Rate 15 17 18 Blood Pressure Blood Pressure Mean Pulse Oximetry 97 97 95 Oxygen Delivery Method Oxygen Flow Rate Sepsis Recent Fever Within 48 Hours Sepsis New/Unexplained Change in Mental Status Sepsis Action Taken by Nursing 06/23/21 16:30 Temperature Temperature Source Pulse Rate 78 Pulse Rate from SpO2 Sensor 76 Respiratory Rate 16 Blood Pressure Blood Pressure Mean Pulse Oximetry 94 Oxygen Delivery Method Oxygen Flow Rate Sepsis Recent Fever Within 48 Hours Sepsis New/Unexplained Change in Mental Status Sepsis Action Taken by Alf Medications Current Medication List: was personally reviewed by ct Laboratory Data Attestation: I reviewed the patient's lab results. Result diagrams: 06/23/21 14:38 06/23/21 14:38 Lab Results 06/23/21 06/23/21 06/23/21 Range/Units 14:38 14:38 14:38 WBC 11.48 H (4.8-10.8) K/uL RBC 3.63 L (4.7-6.1) M/uL Hgb 12.3 L (14.0-18.0) g/dL Hct 36.4 L (42-52) % MCV 100.3 H (80-100) fL MCH 33.9 (25-34) pg MCHC 33.8 (32-36) g/dL RDW Std Deviation 46.8 H (36.4-46.3) fL RDW Coeff of Ty 12.8 (11.5-14.5) % Plt Count 227 (130-400) K/uL MPV 11.3 H (7.4-10.4) fL Immature Gran % (Auto) 0.3 % Neut % (Auto) 87.2 % Lymph % (Auto) 6.3 % [place] % (Auto) 5.6 % Eos % (Auto) 0.3 % Baso % (Auto) 0.3 % Neut # (Auto) 10.03 H (1.4-6.5) K/uL Lymph # (Auto) 0.72 L (1.2-3.4) K/uL [place] # (Auto) 0.64 H (0.11-0.59) K/uL Eos # (Auto) 0.03 (0-0.5) K/uL Baso # (Auto) 0.03 (0-0.2) K/uL Immature Gran # (Auto) 0.03 H (0.00-0.02) K/uL VBG pH (7.36-7.41) VBG pCO2 (38-50) mmHg VBG pO2 mmHg VBG HCO3 mmol/L VBG O2 Saturation % VBG Base Excess mEq/L Barometric Pressure mm/Hg Sodium 135 L (136-145) mmol/L Potassium 3.8 (3.5-5.1) mmol/L Chloride 99 (98-107) mmol/L Carbon Dioxide 28 (21-32) mmol/L Anion Gap 8 (3-11) BUN 19 (6-23) mg/dl Creatinine 1.10 (0.6-1.4) mg/dl Est Cr Clr Drug Dosing 40.8 ml/min Est GFR ( Amer) 70.6 ml/min Est GFR (Non-Af Amer) 60.9 ml/min BUN/Creatinine Ratio 17.3 (10-20) Glucose 107 H (70-99(Fasting)) mg/dl Calcium 8.6 (8.5-10.1) mg/dl Total Bilirubin 0.7 (0.2-1.0) mg/dl AST 15 (13-39) U/L ALT 8 (7-52) U/L Alkaline Phosphatase 69 (34-104) U/L Troponin I 0.04 (0-0.04) ng/ml Total Protein 7.3 (6.0-8.3) gm/dl Albumin 3.5 (3.4-5.0) gm/dl Globulin 3.8 (2.5-4.0) gm/dl Albumin/Globulin Ratio 0.9 (0.9-2) Procalcitonin (0-0.5) ng/ml SARS-CoV-2, RNA, NAAT NEGATIVE (NEGATIVE) 06/23/21 06/23/21 Range/Units 15:11 15:12 WBC (4.8-10.8) K/uL RBC (4.7-6.1) M/uL Hgb (14.0-18.0) g/dL Hct (42-52) % MCV (80-100) fL MCH (25-34) pg MCHC (32-36) g/dL RDW Std Deviation (36.4-46.3) fL RDW Coeff of Ty (11.5-14.5) % Plt Count (130-400) K/uL MPV (7.4-10.4) fL Immature Gran % (Auto) % Neut % (Auto) % Lymph % (Auto) % [place] % (Auto) % Eos % (Auto) % Baso % (Auto) % Neut # (Auto) (1.4-6.5) K/uL Lymph # (Auto) (1.2-3.4) K/uL [place] # (Auto) (0.11-0.59) K/uL Eos # (Auto) (0-0.5) K/uL Baso # (Auto) (0-0.2) K/uL Immature Gran # (Auto) (0.00-0.02) K/uL VBG pH 7.41 (7.36-7.41) VBG pCO2 48 (38-50) mmHg VBG pO2 23 mmHg VBG HCO3 30 mmol/L VBG O2 Saturation < 60.0 % VBG Base Excess 4.0 mEq/L Barometric Pressure 730.7 mm/Hg Sodium (136-145) mmol/L Potassium (3.5-5.1) mmol/L Chloride (98-107) mmol/L Carbon Dioxide (21-32) mmol/L Anion Gap (3-11) BUN (6-23) mg/dl Creatinine (0.6-1.4) mg/dl Est Cr Clr Drug Dosing ml/min Est GFR ( Amer) ml/min Est GFR (Non-Af Amer) ml/min BUN/Creatinine Ratio (10-20) Glucose (70-99(Fasting)) mg/dl Calcium (8.5-10.1) mg/dl Total Bilirubin (0.2-1.0) mg/dl AST (13-39) U/L ALT (7-52) U/L Alkaline Phosphatase (34-104) U/L Troponin I (0-0.04) ng/ml Total Protein (6.0-8.3) gm/dl Albumin (3.4-5.0) gm/dl Globulin (2.5-4.0) gm/dl Albumin/Globulin Ratio (0.9-2) Procalcitonin < 0.05 (0-0.5) ng/ml SARS-CoV-2, RNA, NAAT (NEGATIVE) Administered Medications Albuterol (Albut/Ipratrop 3mg/0.5mg Neb 3 Ml Vial) 3 ml NEB QIDR [facility]; Protocol Stop: 07/23/21 19:33 Last Admin: 06/23/21 20:27 Dose: 3 ml Documented by: [id number] Doxycycline Hyclate (Doxycycline Hyclate 100 Mg Cap) 100 mg PO BID CANDICE Stop: 06/30/21 20:59 Last Admin: 06/23/21 21:12 Dose: 100 mg Documented by: [id number] Finasteride (Finasteride 5 Mg Tab) 5 mg PO HS CANDICE Stop: 07/23/21 20:59 Last Admin: 06/23/21 21:13 Dose: 5 mg Documented by: [id number] Heparin Sodium (Porcine) (Heparin Sod 5,000 Unit/0.5 Ml Vial) 5,000 units SQ Q12 CANDICE Stop: 07/23/21 20:59 Last Admin: 06/23/21 21:13 Dose: 5,000 units Documented by: [id number] Mirtazapine (Mirtazapine Soltab 15 Mg) 45 mg PO HS CANDICE Stop: 07/23/21 20:59 Last Admin: 06/23/21 21:13 Dose: 45 mg Documented by: [id number] Discontinued Medications Albuterol (Albut/Ipratrop 3mg/0.5mg Neb 3 Ml Vial) 6 ml INH NOW STA Stop: 06/23/21 14:28 Last Admin: 06/23/21 14:43 Dose: 6 ml Documented by: [id number] Furosemide (Furosemide Inj 20 Mg/2 Ml Vial) 20 mg IV ONE STA Stop: 06/23/21 17:14 Last Admin: 06/23/21 18:23 Dose: 20 mg Documented by: [id number] Magnesium Sulfate/Dextrose (Magnesium Sulfate / D5w) 1 gm in 100 mls @ 100 mls/hr IV NOW STA Stop: 06/23/21 15:27 Last Admin: 06/23/21 14:43 Dose: 100 mls/hr Documented by: [id number] Sodium Chloride (Nss) 250 mls @ 999 mls/hr IV .Q16M ONE Stop: 06/23/21 14:47 Last Admin: 06/23/21 14:44 Dose: 999 mls/hr Documented by: [id number] Methylprednisolone (Methylprednisolone 125 Mg/2 Ml Vial) 40 mg IV NOW STA Stop: 06/23/21 14:28 Last Admin: 06/23/21 14:43 Dose: 40 mg Documented by: [id number] Imaging Data Radiologist's Impression: Chest X-Ray 06/23/21 14:27 SINGLE VIEW CHEST CLINICAL HISTORY: Dyspnea FINDINGS: An AP, portable, upright chest radiograph is compared to study dated 08/10/2019. The heart is enlarged noting atherosclerotic calcification of the thoracic aorta. There is evidence of congestive failure and pulmonary edema. There are layering pleural effusions with bibasilar consolidation. No pneumothorax is seen. The skeletal structures are osteopenic. The bony thorax is grossly intact. IMPRESSION: 1. Cardiomegaly with evidence of congestive failure and pulmonary edema. 2. Layering pleural effusions with bibasilar consolidation. ACT 112: Negative or not required by law. Electronically signed by: Dustin Rosales M.D. 06/23/2021 2:54 PM Discharge Plan Visit Data Chief Complaint: Shortness of Breath/Dyspnea Stated Complaint: SOB ED Provider: David Wyatt Discharge Problem: Acute exacerbation of chronic obstructive pulmonary disease, Hypoxemia Patient Disposition: Admitted As Inpatient Discharge Instructions Interventions: ED Discharge Assessment Last Done: 06/23/21 19:31
[2021-06-23] MEDS ORDERED: methylPREDNISolone 125 MG/2 ML VIAL IV STA (14:27)
[2021-06-23] MEDS ORDERED: ALBUT/IPRATROP 3MG/0.5MG NEB 3 ML VIAL INH STA (14:27)
[2021-06-23] MEDS ORDERED: MAGNESIUM SULFATE / D5W 1 GM/100 ML BAG IV STA (14:28)
[2021-06-23] MEDS ORDERED: SODIUM CHLORIDE 0.9% 250 ML IV ONE (14:32)
[2021-06-23 14:49] LABS: Basophils # (auto) 0.03 K/uL (0-0.2); Basophils % (auto) 0.3 %; Eosinophils # (auto) 0.03 K/uL (0-0.5); Eosinophils % (auto) 0.3 %; Hematocrit (blood only) 36.4 % (42-52); Hemoglobin 12.3 g/dL (14.0-18.0); Immature Granulocytes # (auto) 0.03 K/uL (0.00-0.02); Immature Granulocytes % (auto) 0.3 %; Lymphocytes # (auto) 0.72 K/uL (1.2-3.4); Lymphocytes % (auto) 6.3 %; Mean Corpuscular Hemoglobin 33.9 pg (25-34); Mean Corpuscular Hgb Conc 33.8 g/dL (32-36); Mean Corpuscular Volume 100.3 fL (80-100); Mean Platelet Volume 11.3 fL (7.4-10.4); Monocytes # (auto) 0.64 K/uL (0.11-0.59); Monocytes % (auto) 5.6 %; Neutrophils # (auto) 10.03 K/uL (1.4-6.5); Neutrophils % (auto) 87.2 %; Platelet Count 227 K/uL (130-400); RDW Coefficient of Variation 12.8 % (11.5-14.5); RDW Standard Deviation 46.8 fL (36.4-46.3); Red Blood Count 3.63 M/uL (4.7-6.1); White Blood Count 11.48 K/uL (4.8-10.8)
--- NOTE | 2021-06-23 14:55 | XRay Report ---
SINGLE VIEW CHEST CLINICAL HISTORY: Dyspnea FINDINGS: An AP, portable, upright chest radiograph is compared to study dated 08/10/2019. The heart i s enlarged noting atherosclerotic calcification of the thoracic aorta. There is evidence of congestiv e failure and pulmonary edema. There are layering pleural effusions with bibasilar consolidation. No pneumothorax is seen. The skeletal structures are osteopenic. The bony thorax is grossly intact. IMPRESSION: 1. Cardiomegaly with evidence of congestive failure and pulmonary edema. 2. Layering pleural effusions with bibasilar consolidation. ACT 112: Negative or not required by law. Electronically signed by: Dustin Rosales M.D. 06/23/2021 2:54 PM
[2021-06-23 15:19] LABS: Troponin I 0.04 ng/ml (0-0.04)
[2021-06-23 15:39] LABS: HCO3 VBG 30 mmol/L; PCO2 VBG 48 mmHg (38-50); PO2 VBG 23 mmHg; pH VBG 7.41 (7.36-7.41)
[2021-06-23 15:42] LABS: Albumin Globulin Ratio 0.9 (0.9-2); Albumin Level 3.5 gm/dl (3.4-5.0); BUN Creatinine Ratio 17.3 (10-20); Bilirubin,Total 0.7 mg/dl (0.2-1.0); Calcium 8.6 mg/dl (8.5-10.1); Creatinine Clr Calc Pharmacy 40.8 ml/min; Est GFR (African American) 70.6 ml/min; Est GFR (Non-African American) 60.9 ml/min; Globulin 3.8 gm/dl (2.5-4.0); Total Protein 7.3 gm/dl (6.0-8.3)
[2021-06-23 15:50] LABS: Potassium 3.8 mmol/L (3.5-5.1)
[2021-06-23 15:58] LABS: Oxygen Saturation VBG < 60.0 %
--- NOTE | 2021-06-23 16:28 | History & Physical Report ---
Date of Service June 23, 2021 Assessment & Plan (1) SOB (shortness of breath): (2) COPD exacerbation: (3) Acute on chronic HFrEF (heart failure with reduced ejection fraction): Plan: Patient is 86-year-old male with PMH chronic systolic heart failure, nonischemic cardiomyopathy, EF 20-25% on echo in 2019, chronic LBBB, NSVT, COPD on oxygen at bedtime, CKD III, HTN, dyslipidemia, BPH, depression, malnutrition presented to ER with complaint increased shortness of breath x 2 weeks, worse today with pulse ox reported in 70's with ambulation today. Denies increased cough or sputum production, fever/chills, CP. In ER reported patient had a wheezing upon auscultation. Patient was given albuterol neb, Solu-Medrol 40 IV, 250 mL NSS Possible COPD exacerbation CXR: 1. Cardiomegaly with evidence of congestive failure and pulmonary edema. 2. Layering pleural effusions with bibasilar consolidation. Duo nebs Prednisone daily Doxycycline Supplemental oxygen Will likely need 2-step prior to discharge Acute on chronic heart failure. EF 20-25%, severe global left ventricular hypokinesis on echo 04/2019 Nonischemic cardiomyopathy History of low output syndrome. Not currently on diuretics and secondary to orthostatic hypotension past Lasix 20 mg IV now and tomorrow AM. Follow response Daily weights, low-sodium diet, 1800 mL fluid restriction, monitor I's and O's Echo Cardiology consult CBC, BMP in a.m. NSVT Continue amiodarone CKD III Creatinine at baseline Monitor renal functions, try to avoid nephrotoxic agents when possible HTN Continue amlodipine Chronic LBBB BPH Continue tamsulosin, finasteride DVT Prophylaxis Heparin SQ Full Code as per discussion with pt Follows with Dr Lopez for routine care Pt was seen and care coordinated with Dr Moerno. See addendum History of Present Illness Chief Complaint: SOB Primary Care Provider: Taylor Lopez DO Patient is 86-year-old male with PMH chronic systolic heart failure, nonischemic cardiomyopathy, EF 20-25% on echo in 2019, chronic LBBB, NSVT, COPD on oxygen at bedtime, CKD III, HTN, dyslipidemia, BPH, depression, malnutrition presented to ER with complaint increased shortness of breath. Patient reports chronic shortness of breath at baseline, worsened with getting dressed and walking throughout house. The past 2 weeks has had increased shortness of breath with exertion which worsened today prompting ER evaluation. Patient reports his oxygen dropped to the 70s when trying to ambulate to kitchen. Patient reports wears 2 L oxygen at bedtime however he feels like he needs it during the day as well. Patient reports chronic cough productive of yellow or white sputum. He does not feel he has had increased cough or sputum production. Denies fever, chills, ill contacts. Reports received COVID-19 vaccine x2 as well as booster. Denies any lower extremity edema or chest pain. Denies N/V/D/C, MORENO, dizziness, syncope, vision changes, neck pain, sore throat, choking, otalgia, rhinorrhea, abdominal pain, paresthesias, weakness, rashes, urinary symptoms. In ER reported patient had a wheezing upon auscultation. Patient was given a lbuterol neb, Solu-Medrol 40 IV, 250 mL NSS Allergies Allergy/AdvReac Type Severity Reaction Status Date / Time No Known Allergies Allergy Unknown Verified 06/23/21 16:03 Home Medications Medication Instructions Recorded Confirmed Type aspirin 81 mg tablet,delayed 81 mg PO QAM 10/27/18 06/23/21 History release mirtazapine 45 mg tablet 45 mg PO HS 10/27/18 06/23/21 History finasteride 5 mg tablet 5 mg PO HS 07/31/19 06/23/21 History amiodarone 200 mg tablet 100 mg PO QAM #0 tab 08/11/19 06/23/21 Rx amlodipine 2.5 mg tablet 2.5 mg PO DAILY 06/23/21 06/23/21 History tamsulosin 0.4 mg capsule 0.4 mg PO DAILY 06/23/21 06/23/21 History Past Med/Surg History Medical History 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 Underwent procedure without any complications; monitored overnight and discharged home. 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 11/01/18 = widely patent coronary arteries History of cardiac cath SEPTEMBER 2018 AT [facility] NO STENTS History of cataract surgery BILATERAL History of colonoscopy History of tonsillectomy and adenoidectomy History of total left hip replacement Family History Mother Hypertension Brother FHx: myocardial infarction HALF-BROTHER Sister Kidney transplant status Social History Smoking Status: Former smoker Tobacco Type: Cigarettes Years Smoked: 50; Number of Years Since Quit: 3; Second Hand Exposure: No; Hx Alcohol Use: No Hx Substance Use: No Preferred Language: Amharic Communication Ability: Effective Research Program Manager Required: No Beliefs That Will Affect Care: None marital status: Current Living Situation: Spouse Current Living Situation Comment: [facility] current occupational status: retired Feels Safe at Home: Yes Assistive Devices: Glasses and Hearing Aid - Bilateral Review of Systems Review of Systems: All systems reviewed & are unremarkable except as noted in HPI & below Physical Exam Physical Exam: General: no acute distress, chronic ill appearing, thin, frail elderly male Head: normocephalic, atraumatic Eyes: PERRL, EOM's intact, conjunctiva non-injected, anicteric ENT: normal inspection external ears, nose, mucous membranes moist Neck: supple, trachea midline Lungs: no respiratory distress on current 2L via NC, diminished breath sounds throughout, faint wheezing clears with cough CV: RRR, no pretibial edema Abd: normal BS, soft, non-tender Ext: no cyanosis, no calf tenderness Neuro: A&O x 3, no focal deficits noted, normal affect Skin: warm, dry Results & Data Results & Data ([facility]) Vital Signs (Past 12 Hours) Vital Signs Temp Pulse Resp BP Pulse Ox 06/23/21 15:10 74 20 100 06/23/21 15:00 74 24 100 06/23/21 14:50 65 18 95 06/23/21 14:40 75 20 96 06/23/21 14:30 106 H 18 93 06/23/21 14:22 20 97 06/23/21 13:46 36.4 C L 74 18 127/70 90 Laboratory Results Short CBC 06/23/21 Range/Units 14:38 WBC 11.48 H (4.8-10.8) K/uL Hgb 12.3 L (14.0-18.0) g/dL Hct 36.4 L (42-52) % Plt Count 227 (130-400) K/uL BMP 06/23/21 14:38 Sodium 135 L Potassium 3.8 Chloride 99 Carbon Dioxide 28 BUN 19 Creatinine 1.10 Glucose 107 H Calcium 8.6 Cardiac Enzymes 06/23/21 Range/Units 14:38 Troponin I 0.04 (0-0.04) ng/ml Liver Function 06/23/21 Range/Units 14:38 Total Bilirubin 0.7 (0.2-1.0) mg/dl AST 15 (13-39) U/L ALT 8 (7-52) U/L Alkaline Phosphatase 69 (34-104) U/L Albumin 3.5 (3.4-5.0) gm/dl Diagnostic Findings Chest X-Ray 06/23/21 14:27 SINGLE VIEW CHEST CLINICAL HISTORY: Dyspnea FINDINGS: An AP, portable, upright chest radiograph is compared to study dated 08/10/2019. The heart is enlarged noting atherosclerotic calcification of the thoracic aorta. There is evidence of congestive failure and pulmonary edema. There are layering pleural effusions with bibasilar consolidation. No pneumothorax is seen. The skeletal structures are osteopenic. The bony thorax is grossly intact. IMPRESSION: 1. Cardiomegaly with evidence of congestive failure and pulmonary edema. 2. Layering pleural effusions with bibasilar consolidation. ACT 112: Negative or not required by law. Electronically signed by: Dustin Rosales M.D. 06/23/2021 2:54 PM Supervising Physician Co-Signing Physician Notes Patient is an 86-year-old male with history of systolic heart failure with last EF about 20%, chronic left bundle branch block, NSVT, COPD and other medical problems presents with history of worsening shortness of breath, generalized weakness on minimal exertion, hypoxia with ambulation which has been gradually worsening since last 2 weeks. Patient reports having chronic cough which is fairly unchanged but noticed to have yellowish to white expectoration. Uses supplemental oxygen 2 L at bedtime usually. Denies any chest pain, dizziness, nausea, abdominal pain, fever, chills. Blood work suggestive of leukocytosis 11.4K, hyponatremia 135, glucose 107, procalcitonin less than 0.05. Chest x-ray showed cardiomegaly with evidence of congestive failure and pulmonary edema, layering pleural effusions with bibasilar consolidation. On exam patient is thin, frail, chronically appearing, no apparent distress, normocephalic atraumatic, EOMI, decreased coarse breath sounds, scattered wheezing, S1-S2, no murmur, no pedal edema, abdomen soft, nontender, normal bowel sounds, alert, awake, oriented,+ hearing impairment, grossly no focal deficits. Patient is admitted for management of acute on chronic CHF exacerbation, mild COPD exacerbation. Will update resting echo. Consulted cardiology. Gentle IV Lasix given relatively low blood pressure and prior history of being on midodrine drip while on IV diuretics. Monitor I's and O's, daily weight, fluid restriction. Agree with prednisone course, doxycycline for COPD exacerbation. Nebs as needed. Will need to step prior to discharge. Continue amiodarone for NSVT. I personally reviewed the record. Patient is interviewed and examined at bedside. Patient's care is coordinated with Maddsion Velazco PA-C. Please refer to the documentation above for details of patient's presentation and for discussion of other issues.
--- NOTE | 2021-06-23 16:38 | Electrocardiogram Report ---
Test Reason : Blood Pressure : / mmHG Vent. Rate : 076 BPM Atrial Rate : 076 BPM P-R Int : 184 ms QRS Dur : 172 ms QT Int : 454 ms P-R-T Axes : 064 -15 143 degrees QTc Int : 510 ms Normal sinus rhythm Left bundle branch block Abnormal ECG When compared with ECG of 06-AUG-2019 12:34, Aberrant conduction is no longer Present Confirmed by Alexander Yang ([id number]) on 06/23/2021 4:37:58 PM Referred By: REFERRED SELF Confirmed By:Alexander Yang
[2021-06-23] MEDS ORDERED: FUROSEMIDE INJ 20 MG/2 ML VIAL IV STA (17:13)
[2021-06-23] MEDS ORDERED: ACETAMINOPHEN 325 MG TAB PO PRN (19:34)
[2021-06-23] MEDS ORDERED: ALBUT/IPRATROP 3MG/0.5MG NEB 3 ML VIAL NEB PRN (19:53)
[2021-06-23] MEDS: ALBUT/IPRATROP 3MG/0.5MG NEB 3 ML VIAL NEB SCH (20:27)
[2021-06-23] MEDS: DOXYCYCLINE HYCLATE 100 MG CAP PO SCH (21:12)
[2021-06-23] MEDS: FINASTERIDE 5 MG TAB PO SCH (21:13)
[2021-06-23] MEDS: MIRTAZAPINE SOLTAB 15 MG PO SCH (21:13)
[2021-06-23] MEDS: HEPARIN SOD 5,000 UNIT/0.5 ML VIAL SQ SCH (21:13)
[2021-06-24] MEDS: ALBUT/IPRATROP 3MG/0.5MG NEB 3 ML VIAL NEB SCH ×2 (06:54→11:06)
[2021-06-24 06:58] LABS: Hematocrit (blood only) 34.4 % (42-52); Hemoglobin 11.5 g/dL (14.0-18.0); Immature Granulocytes # (auto) 0.02 K/uL (0.00-0.02); Immature Granulocytes % (auto) 0.2 %; Lymphocytes # (auto) 0.41 K/uL (1.2-3.4); Lymphocytes % (auto) 3.4 %; Mean Corpuscular Hemoglobin 33.5 pg (25-34); Mean Corpuscular Hgb Conc 33.4 g/dL (32-36); Mean Corpuscular Volume 100.3 fL (80-100); Monocytes # (auto) 0.26 K/uL (0.11-0.59); Monocytes % (auto) 2.2 %; Neutrophils # (auto) 11.35 K/uL (1.4-6.5); Neutrophils % (auto) 94.2 %; Platelet Count 226 K/uL (130-400); RDW Coefficient of Variation 13.1 % (11.5-14.5); RDW Standard Deviation 47.5 fL (36.4-46.3); Red Blood Count 3.43 M/uL (4.7-6.1); White Blood Count 12.04 K/uL (4.8-10.8)
[2021-06-24 07:31] LABS: BUN Creatinine Ratio 18.5 (10-20); Calcium 8.6 mg/dl (8.5-10.1); Creatinine Clr Calc Pharmacy 28.6 ml/min; Est GFR (African American) 50.1 ml/min; Est GFR (Non-African American) 43.2 ml/min; Potassium 4.3 mmol/L (3.5-5.1)
[2021-06-24] MEDS ORDERED: FUROSEMIDE INJ 20 MG/2 ML VIAL IV SCH (09:00)
[2021-06-24] MEDS: AMIODARONE 200 MG TAB PO SCH (09:03)
--- NOTE | 2021-06-24 09:03 | Hospitalist Progress Note ---
Date of Service June 24, 2021 Assessment & Plan (1) SOB (shortness of breath): (2) COPD exacerbation: (3) Acute on chronic HFrEF (heart failure with reduced ejection fraction): Plan: Patient is 86-year-old male with PMH chronic systolic heart failure, nonischemic cardiomyopathy, EF 20-25% on echo in 2019, chronic LBBB, NSVT, COPD on oxygen at bedtime, CKD III, HTN, dyslipidemia, BPH, depression, malnutrition presented to ER with complaint increased shortness of breath x 2 weeks, worse today with pulse ox reported in 70's with ambulation today. Denies increased cough or sputum production, fever/chills, CP. In ER reported patient had wheezing upon auscultation. Patient was given albuterol neb, Solu-Medrol 40 IV, 250 mL NSS Possible COPD exacerbation/Bibasilar Consolidation on CXR c Leukocytosis CXR: 1. Cardiomegaly with evidence of congestive failure and pulmonary edema. 2. Layering pleural effusions with bibasilar consolidation. Duo nebs Prednisone daily Rocephin and Zmax Doxycycline Supplemental oxygen Will likely need 2-step prior to discharge Acute on chronic heart failure. EF 20-25%, severe global left ventricular hypokinesis on echo 04/2019 Nonischemic cardiomyopathy History of low output syndrome. Not currently on diuretics and secondary to orthostatic hypotension past Lasix 20 mg IV. Daily weights, low-sodium diet, 1800 mL fluid restriction, monitor I's and O's Echo Done EF 15-20% Cardiology to see [facility] daily labs NSVT Continue amiodarone CKD III Creatinine at baseline Monitor renal functions, try to avoid nephrotoxic agents when possible HTN Continue amlodipine Chronic LBBB BPH Continue tamsulosin, finasteride DVT Prophylaxis Heparin SQ Full Code as per discussion with pt Follows with Dr Lopez for routine care Labs reviewed ROS-No Headache, No Visual Changes, No Nausea, No Vomiting, No Fever, No Chills, No Neck Pain or Stiffness, No Chest Pain, No Palpitations, No SOB, No CONNELLY, No Cough, No Sputum, No Wheezing, No Abdominal Pain, No Diarrhea, No Hematemesis, No Hemoptysis, No Unexpected Weight Loss, No Flank pain, No Melena, No Hematochezia, No Frequency, No Urgency, No Burning, No Hematuria, No Rashes, No Diaphoresis. Appetite is Normal, breathing a lot better Physical Exam Gen-AAO x 3, NAD, Afebrile, Cachectic Head-NCAT, EOMI, PERRLA, Anicteric Sclera, No Posterior Pharyngeal Erythema Neck-Supple, No JVD, No Thyromegaly, No Masses, No LAD, No Bruits Lungs-Clear to Auscultation Bilaterally, No Rales, No Rhonchi, No Wheezing, No Crepitus Chest-No S4, +S1, +S2, No S3, No Murmurs, No Rubs, No Gallops, No Ectopy Abdomen-Soft, Bowel Sounds Present, Non Tender, Non Distended, No Hepatomegaly, No Splenomegaly, No Palpable Masses, No Rebound, No Rigidity, No Guarding Musculoskeletal-Full Range of Motion Bilaterally, No CVAT Extremities-No Cyanosis, No Clubbing, No Edema Nuero-Cranial Nerves II-XII grossly intact, Motor WNL, DTRs WNL, Strength WNL, Non Focal Psych-Normal Mood Admission and Anticipated Discharge Date Admission Date: June 23, 2021 Subjective Patient feels a lot better than yesterday Results & Data Results & Data ([facility]) Vital Signs (Past 12 Hours) Vital Signs Temp Pulse Pulse Resp BP Pulse Ox 06/24/21 07:49 36.4 C L 77 22 121/70 97 06/24/21 06:55 64 16 97 06/24/21 05:50 78 06/24/21 04:01 36.3 C L 74 16 120/62 98 06/23/21 23:56 36.4 C L 72 16 121/59 L 98
[2021-06-24] MEDS: DOXYCYCLINE HYCLATE 100 MG CAP PO SCH ×2 (09:04→20:08)
[2021-06-24] MEDS: amLODIPine BESYLATE 5 MG TAB PO SCH (09:04)
[2021-06-24] MEDS: ASPIRIN 81 MG ECTAB PO SCH (09:04)
[2021-06-24] MEDS: TAMSULOSIN HCL 0.4 MG CAP PO SCH (09:04)
[2021-06-24] MEDS: HEPARIN SOD 5,000 UNIT/0.5 ML VIAL SQ SCH ×2 (09:05→20:08)
[2021-06-24] MEDS: predniSONE 20 MG TAB PO SCH (09:05)
[2021-06-24] MEDS: cefTRIAXone SODIUM 1,000 MG in DEXTROSE 5% 50 ML IV SCH (09:50)
--- NOTE | 2021-06-24 10:51 | Cardiology Consultation ---
Date of Consultation June 24, 2021 Assessment & Plan (1) Acute exacerbation of chronic obstructive pulmonary disease: (2) Hypoxemia: (3) Acute on chronic HFrEF (heart failure with reduced ejection fraction): (4) Chronic hyponatremia: (5) Orthostatic hypotension: (6) Nonischemic cardiomyopathy: (7) Bradycardia: (8) Biventricular cardiac pacemaker in situ: (9) Nonischemic cardiomyopathy: (10) PVD (peripheral vascular disease): (11) LBBB (left bundle branch block): Unfortunately, I have no doubt that this is another reminder that the patient is suffering from end-stage disease. Dr. Light has talked to the patient and family extensively in the past about home hospice, he initially started it but then declined further services. I strongly agree that this would be the best course of action knowing that he is suffering end-stage disease with his COPD and nonischemic cardiomyopathy. Also, its difficult to start any medications given his chronic bradycardia and history of orthostatic hypotension on any medications. He is already received 2 doses of IV Lasix and I will discontinue at this time given that he is also fighting an infection and would like to avoid intravascular volume depletion. No further cardiac testing or intervention indicated at this time. History of Present Illness Attending Physician: Pineda Ramirez DO History of Present Illness Pt seen and examined, chart and outpatient records reviewed. Mr. Victoria is a very pleasant 86-year-old gentleman who follows very closely with Dr. Light of our cardiology practice. He presented to [facility] with increasing shortness of breath over the last several days. He denies any chest pain or significant lower extremity edema. He has had a cough which has been nonproductive as well. Denies sick contacts. Upon arrival to the emergency department he was found to be slightly volume overloaded and his symptoms improved with treatment of a possible COPD exa cerbation. Currently he is resting comfortably in bed. No shortness of breath at rest with 2 L of oxygen via nasal cannula. PMHX: 1. Chronic systolic CHF (congestive heart failure), NYHA class [address] ([facility]) 2. NICM (nonischemic cardiomyopathy) ([facility]) 3. Left bundle branch block Allergies Allergy/AdvReac Type Severity Reaction Status Date / Time No Known Allergies Allergy Unknown Verified 06/23/21 16:03 Home Medications Medication Instructions Recorded Confirmed Type aspirin 81 mg tablet,delayed 81 mg PO QAM 10/27/18 06/23/21 History release mirtazapine 45 mg tablet 45 mg PO HS 10/27/18 06/23/21 History finasteride 5 mg tablet 5 mg PO HS 07/31/19 06/23/21 History amiodarone 200 mg tablet 100 mg PO QAM #0 tab 08/11/19 06/23/21 Rx amlodipine 2.5 mg tablet 2.5 mg PO DAILY 06/23/21 06/23/21 History tamsulosin 0.4 mg capsule 0.4 mg PO DAILY 06/23/21 06/23/21 History Patient History Medical History 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 Underwent procedure without any complications; monitored overnight and discharged home. 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 11/01/18 = widely patent coronary arteries History of cardiac cath SEPTEMBER 2018 AT [facility] NO STENTS History of cataract surgery BILATERAL History of colonoscopy History of tonsillectomy and adenoidectomy History of total left hip replacement Family History Mother Hypertension Brother FHx: myocardial infarction HALF-BROTHER Sister Kidney transplant status Social History Smoking Status: Former smoker Tobacco Type: Cigarettes Years Smoked: 50; Number of Years Since Quit: 3; Second Hand Exposure: No; Do You Dip or Chew Tobacco: No; Hx Alcohol Use: No Hx Substance Use: No Preferred Language: Hong Konger Communication Ability: Effective 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 No acute distress. HEENT: Normocephalic, atraumatic. Pupils equal, round and reactive to light and accommodation. Extraocular muscles are intact. Anicteric sclera. Moist mucous membranes. Neck: No JVD. No bruit. Cardiovascular: Regular. Positive S-4. Normal S-1 and S-2. No S-3. 3/6 holosystolic ejection murmur, left sternal border, mid-clavicular line with radiation to the axilla. No rubs. Pulmonary: Clear to auscultation bilaterally. No rales, rhonchi, or wheezing. Abdomen: Bowel sounds x 4, soft. No rebound, guarding or tenderness. No organomegaly. Extremities: No clubbing, cyanosis or edema. +2 pedal pulses bilaterally. Skin: Warm and dry. Results & Data ([facility]) Vital Signs (Past 12 Hours) Vital Signs Temp Pulse Pulse Resp BP Pulse Ox 06/24/21 07:49 36.4 C L 77 22 121/70 97 06/24/21 06:55 64 16 97 06/24/21 05:50 78 06/24/21 04:01 36.3 C L 74 16 120/62 98 06/23/21 23:56 36.4 C L 72 16 121/59 L 98
[2021-06-24] MEDS: MIRTAZAPINE SOLTAB 15 MG PO SCH (20:08)
[2021-06-24] MEDS: FINASTERIDE 5 MG TAB PO SCH (20:08)
[2021-06-25 06:51] LABS: Hematocrit (blood only) 33.4 % (42-52); Mean Corpuscular Hemoglobin 33.6 pg (25-34); Mean Corpuscular Hgb Conc 32.9 g/dL (32-36); Mean Corpuscular Volume 102.1 fL (80-100); Mean Platelet Volume 11.4 fL (7.4-10.4); Platelet Count 230 K/uL (130-400); RDW Coefficient of Variation 13.4 % (11.5-14.5); RDW Standard Deviation 50.3 fL (36.4-46.3); Red Blood Count 3.27 M/uL (4.7-6.1); White Blood Count 19.31 K/uL (4.8-10.8)
[2021-06-25 07:16] LABS: BUN Creatinine Ratio 24.5 (10-20); Calcium 8.6 mg/dl (8.5-10.1); Creatinine Clr Calc Pharmacy 26.9 ml/min; Est GFR (African American) 46.6 ml/min; Est GFR (Non-African American) 40.2 ml/min; Potassium 4.2 mmol/L (3.5-5.1)
[2021-06-25] MEDS: amLODIPine BESYLATE 5 MG TAB PO SCH (08:31)
[2021-06-25] MEDS: AMIODARONE 200 MG TAB PO SCH (08:31)
[2021-06-25] MEDS: cefTRIAXone SODIUM 1,000 MG in DEXTROSE 5% 50 ML IV SCH (08:32)
[2021-06-25] MEDS: ASPIRIN 81 MG ECTAB PO SCH (08:32)
[2021-06-25] MEDS: TAMSULOSIN HCL 0.4 MG CAP PO SCH (08:33)
[2021-06-25] MEDS: DOXYCYCLINE HYCLATE 100 MG CAP PO SCH (08:33)
[2021-06-25] MEDS: HEPARIN SOD 5,000 UNIT/0.5 ML VIAL SQ SCH (08:33)
[2021-06-25] MEDS: predniSONE 20 MG TAB PO SCH (08:33)
--- NOTE | 2021-06-25 08:34 | Cardiology Progress Note ---
Date of Service June 25, 2021 Assessment & Plan (1) Acute exacerbation of chronic obstructive pulmonary disease: (2) Hypoxemia: (3) Acute on chronic HFrEF (heart failure with reduced ejection fraction): (4) Chronic hyponatremia: (5) Orthostatic hypotension: (6) Nonischemic cardiomyopathy: (7) Bradycardia: (8) Biventricular cardiac pacemaker in situ: (9) PVD (peripheral vascular disease): (10) LBBB (left bundle branch block): Plan: This is a patient is known NICM and COPD. LVEF on echo 15-20%, known end stage disease. Primarily follows with Dr. Henderson. Dr. Henderson has talked to the patient and family extensively in the past about home hospice, he initially started it but then declined further services. There has been difficulty adding/increasing GDMT in the past given his history of chronic bradycardia and history of orthostatic hypotension different antihypertensives. Patient euvolemic on exam, scr 1.5- would continue to hold Lasix (Not normally on lasix at home). No further cardiac testing or intervention indicated at this time. Continue to utilize supplemental o2 as needed. Follow up with cardiology as an out patient in 4-6 weeks Admission and Anticipated Discharge Date Admission Date: June 23, 2021 Subjective Pt seen and examined, chart and outpatient records reviewed. Mr. Victoria is a very pleasant 86-year-old gentleman who follows very closely with Dr. Light of our cardiology practice. He presented to [facility] with increasing shortness of breath over the last several days. Upon arrival to the emergency department he was found to be slightly volume overloaded (given x2 dose of IV lasix 20 mg) and his symptoms improved with treatment of a possible COPD exacerbation. Tele: SR LBBB with PVCs 60-70s I&O: -290 mL Weight: 58.8kg >> 54.5 kg Upon entrance into the room patient was sitting up resting comfortably in bed- no acute distress. Denies any chest pain, shortness of breath at baseline. Notes improvement in breathing while ambulating back and forth to the restroom. No palpitations, dizziness, or syncope. Wearing 2L NC- Normally only wears o2 at night when he is home Review of Systems Review of Systems: All systems reviewed & are unremarkable except as noted in HPI & below Physical Exam Physical Exam: General: Awake, alert and oriented x 3. No acute distress. HEENT: Normocephalic, atraumatic. Pupils equal, round and reactive to light and accommodation. Extraocular muscles are intact. Anicteric sclera. Moist mucous membranes. Neck: No JVD. No bruit. Cardiovascular: Regular. Positive S-4. Normal S-1 and S-2. No S-3. 3/6 holosystolic ejection murmur, left sternal border, mid-clavicular line with radiation to the axilla. No rubs. Pulmonary: Clear to auscultation bilaterally. No rales, rhonchi, or wheezing. Abdomen: Bowel sounds x 4, soft. No rebound, guarding or tenderness. No organomegaly. Extremities: No clubbing, cyanosis or edema. +2 pedal pulses bilaterally. Skin: Warm and dry. Results & Data ([facility]) Vital Signs (Past 12 Hours) Vital Signs Temp Pulse Pulse Resp BP Pulse Ox 06/25/21 07:57 37.1 C 75 17 131/70 98 06/25/21 04:14 36.6 C 76 14 123/69 98 06/25/21 00:00 73 06/24/21 22:56 36.5 C 77 16 126/65 100 Laboratory Results 06/25/21 06/25/21 Range/Units 06:22 06:22 WBC 19.31 H (4.8-10.8) K/uL RBC 3.27 L (4.7-6.1) M/uL Hgb 11.0 L (14.0-18.0) g/dL Hct 33.4 L (42-52) % MCV 102.1 H (80-100) fL MCH 33.6 (25-34) pg MCHC 32.9 (32-36) g/dL RDW Std Deviation 50.3 H (36.4-46.3) fL RDW Coeff of Ty 13.4 (11.5-14.5) % Plt Count 230 (130-400) K/uL MPV 11.4 H (7.4-10.4) fL Sodium 135 L (136-145) mmol/L Potassium 4.2 (3.5-5.1) mmol/L Chloride 100 (98-107) mmol/L Carbon Dioxide 30 (21-32) mmol/L Anion Gap 5 (3-11) BUN 38 H (6-23) mg/dl Creatinine 1.55 H (0.6-1.4) mg/dl Est Cr Clr Drug Dosing 26.9 ml/min Est GFR ( Amer) 46.6 ml/min Est GFR (Non-Af Amer) 40.2 ml/min BUN/Creatinine Ratio 24.5 H (10-20) Glucose 111 H (70-99(Fasting)) mg/dl Calcium 8.6 (8.5-10.1) mg/dl
--- NOTE | 2021-06-25 09:16 | Discharge Summary ---
Date of Service June 25, 2021 Admission HPI Per Admitting Provider Patient is 86-year-old male with PMH chronic systolic heart failure, nonischemic cardiomyopathy, EF 20-25% on echo in 2019, chronic LBBB, NSVT, COPD on oxygen at bedtime, CKD III, HTN, dyslipidemia, BPH, depression, malnutrition presented to ER with complaint increased shortness of breath. Patient reports chronic shortness of breath at baseline, worsened with getting dressed and walking throughout house. The past 2 weeks has had increased shortness of breath with exertion which worsened today prompting ER evaluation. Patient reports his oxygen dropped to the 70s when trying to ambulate to kitchen. Patient reports wears 2 L oxygen at bedtime however he feels like he needs it during the day as well. Patient reports chronic cough productive of yellow or white sputum. He does not feel he has had increased cough or sputum production. Denies fever, chills, ill contacts. Reports received COVID-19 vaccine x2 as well as booster. Denies any lower extremity edema or chest pain. Denies N/V/D/C, MORENO, dizziness, syncope, vision changes, neck pain, sore throat, choking, otalgia, rhinorrhea, abdominal pain, paresthesias, weakness, rashes, urinary symptoms. In ER reported patient had a wheezing upon auscultation. Patient was given albuterol neb, Solu-Medrol 40 IV, 250 mL NSS Admission Exam Per Admitting Provider General: no acute distress, chronic ill appearing, thin, frail elderly male Head: normocephalic, atraumatic Eyes: PERRL, EOM's intact, conjunctiva non-injected, anicteric ENT: normal inspection external ears, nose, mucous membranes moist Neck: supple, trachea midline Lungs: no respiratory distress on current 2L via NC, diminished breath sounds throughout, faint wheezing clears with cough CV: RRR, no pretibial edema Abd: normal BS, soft, non-tender Ext: no cyanosis, no calf tenderness Neuro: A&O x 3, no focal deficits noted, normal affect Skin: warm, dry Principal Diagnosis SOB (shortness of breath): COPD exacerbation: Acute on chronic HFrEF (heart failure with reduced ejection fraction): COPD exacerbation/Bibasilar Consolidation/Pneumonia on CXR c Leukocytosis Acute on chronic heart failure. EF 20-25%, severe global left ventricular hypokinesis on echo 04/2019 Nonischemic cardiomyopathy Low output syndrome. Not currently on diuretics and secondary to orthostatic hypotension past NSVT CKD III HTN Chronic LBBB BPH Discharge Data Allergies Allergy/AdvReac Type Severity Reaction Status Date / Time No Known Allergies Allergy Unknown Verified 06/23/21 16:03 Consultations 06/23/21 16:03 ED Decision to Admit Stat 06/23/21 17:02 Consult Cardiology Routine Hospital Course (1) SOB (shortness of breath): (2) COPD exacerbation: (3) Acute on chronic HFrEF (heart failure with reduced ejection fraction): Patient is 86-year-old male with PMH chronic systolic heart failure, nonischemic cardiomyopathy, EF 20-25% on echo in 2019, chronic LBBB, NSVT, COPD on oxygen at bedtime, CKD III, HTN, dyslipidemia, BPH, depression, malnutrition presented to ER with complaint increased shortness of breath x 2 weeks, worse today with pulse ox reported in 70's with ambulation today. Denies increased cough or sputum production, fever/chills, CP. In ER reported patient had wheezing upon auscultation. Patient was given albuterol neb, Solu-Medrol 40 IV, 250 mL NSS Possible COPD exacerbation/Bibasilar Consolidation on CXR c Leukocytosis CXR: 1. Cardiomegaly with evidence of congestive failure and pulmonary edema. 2. Layering pleural effusions with bibasilar consolidation. Duo nebs Prednisone daily Omnicef and Doxycycline on DC 2-step today Acute on chronic heart failure. EF 20-25%, severe global left ventricular hypokinesis on echo 04/2019 Nonischemic cardiomyopathy History of low output syndrome. Not currently on diuretics and secondary to orthostatic hypotension past Lasix 20 mg IV. Daily weights, low-sodium diet, 1800 mL fluid restriction, monitor I's and O's Echo Done EF 15-20% Cardiology to see [facility] daily labs NSVT Continue amiodarone CKD III Creatinine at baseline Monitor renal functions, try to avoid nephrotoxic agents when possible HTN Continue amlodipine Chronic LBBB BPH Continue tamsulosin, finasteride DVT Prophylaxis Heparin SQ Full Code as per discussion with pt Follows with Dr Lopez for routine care Labs reviewed ROS-No Headache, No Visual Changes, No Nausea, No Vomiting, No Fever, No Chills, No Neck Pain or Stiffness, No Chest Pain, No Palpitations, No SOB, No CONNELLY, No Cough, No Sputum, No Wheezing, No Abdominal Pain, No Diarrhea, No Hematemesis, No Hemoptysis, No Unexpected Weight Loss, No Flank pain, No Melena, No Hematochezia, No Frequency, No Urgency, No Burning, No Hematuria, No Rashes, No Diaphoresis. Appetite is Normal, breathing a lot better Physical Exam Gen-AAO x 3, NAD, Afebrile, Cachectic Head-NCAT, EOMI, PERRLA, Anicteric Sclera, No Posterior Pharyngeal Erythema Neck-Supple, No JVD, No Thyromegaly, No Masses, No LAD, No Bruits Lungs-Clear to Auscultation Bilaterally, No Rales, No Rhonchi, No Wheezing, No Crepitus Chest-No S4, +S1, +S2, No S3, No Murmurs, No Rubs, No Gallops, No Ectopy Abdomen-Soft, Bowel Sounds Present, Non Tender, Non Distended, No Hepatomegaly, No Splenomegaly, No Palpable Masses, No Rebound, No Rigidity, No Guarding Musculoskeletal-Full Range of Motion Bilaterally, No CVAT Extremities-No Cyanosis, No Clubbing, No Edema Nuero-Cranial Nerves II-XII grossly intact, Motor WNL, DTRs WNL, Strength WNL, Non Focal Psych-Normal Mood Total Time Total Time Spent Total Time Spent (In Minutes): 45 mins Total Time Includes: Examination of the Patient, Discharge Planning, Medication Reconciliation and Communication With Other Providers Discharge Plan Discharge Items Patient Disposition: Home - Self-Care Reason For Visit: SOB Discharge Diagnosis: SOB (shortness of breath): COPD exacerbation: Acute on chronic HFrEF (heart failure with reduced ejection fraction): COPD exacerbation/Bibasilar Consolidation/Pneumonia on CXR c Leukocytosis Acute on chronic heart failure. EF 20-25%, severe global left ventricular hypokinesis on echo 04/2019 Nonischemic cardiomyopathy Low output syndrome. Not currently on diuretics and secondary to orthostatic hypotension past NSVT CKD III HTN Chronic LBBB BPH Condition on Discharge: Fair Health Concerns: Declining condition secondary to heart and lung disease Activity: As commented below Activity Comment: Limited activity Lifting: None Bathing: No limitations Exercise/Sports: None Driving/Machine Use: Do not drive Weightbearing: Full weightbearing Non-emergency contact: Primary Care Provider Call non-emergency contact if: you have any medication questions Follow-up/Referrals: Tayolr Lopez, [Primary Care Provider] - Diet: Heart Healthy and Low Sodium (2gm) Fluids: 1200ml (5 cups) Addtl Attending Provider Instructions: Resume hospice to help you at home Pending Studies at Discharge: Yes Studies:: 2-step Stand-Alone Forms: [facility], Smoking Cessation Medications and DC Order Prescriptions: New doxycycline hyclate 100 mg Capsule 100 mg PO BID Qty: 24 RF: 0 acetaminophen 325 mg Tablet 650 mg PO Q4H PRN (Reason: fever or pain) Qty: 90 RF: 0 cefdinir 300 mg capsule 300 mg PO Q12H 10 Days Qty: 24 RF: 0 prednisone 10 mg tablet 10 mg PO DAILY Qty: 42 RF: 0 Continued aspirin 81 mg Tablet,Delayed Release (Dr/Ec) 81 mg PO QAM RF: 0 mirtazapine 45 mg tablet 45 mg PO HS RF: 0 finasteride 5 mg tablet 5 mg PO HS RF: 0 amiodarone 200 mg tablet 100 mg PO QAM Qty: 0 RF: 0 amlodipine 2.5 mg tablet 2.5 mg PO DAILY RF: 0 tamsulosin 0.4 mg capsule 0.4 mg PO DAILY RF: 0 Discharge Orders: Discharge Order (Routine); Ordered 06/25/21 Ordered By: Pineda Ramirez Admission Data Admit Date/Time: 06/23/21 16:35 Attending Provider: Pineda Ramirez Admit Provider: Giancarlo Moreno Primary Care Provider: Taylor Lopez Other Providers: Rajeev Ba ; Giancarlo Moreno
== END 2021-06-25 13:07 | disposition home or self-care (01) | DRG 291 ==
LOC: ED 13:55 → 2E 16:35 → SUATTDRO 16:35 → 2E 19:31

== ENCOUNTER 2021-11-08 02:41 | Inpatient (IN) ==
[2021-11-08] MEDS ORDERED: methylPREDNISolone 125 MG/2 ML VIAL IV STA (02:52)
[2021-11-08] MEDS ORDERED: ALBUT/IPRATROP 3MG/0.5MG NEB 3 ML VIAL NEB STA (02:53)
[2021-11-08] MEDS ORDERED: ALBUT/IPRATROP 3MG/0.5MG NEB 3 ML VIAL ONE (02:53)
--- NOTE | 2021-11-08 02:55 | Emergency Department Note ---
Impression & Plan COPD (chronic obstructive pulmonary disease) ADMIT ED Provider Note HPI: The patient is an 86-year-old gentleman with history of chronic systolic CHF, NYHA class IV, COPD, on 2 L nasal cannula oxygen at baseline, presents the emergency department tonight via EMS with complaint of shortness of breath. Patient states that shortness of breath is worsening over the past 2 days, denies any cough or fever, denies any chest pain. Patient states he titrated his oxygen up to 4 L today and per EMS on their arrival he was saturating at 79%. He was placed on a nonrebreather mask for transport and this did improve his oxygen. On my initial assessment patient is on 3 L nasal cannula oxygen and he is now saturating at 96%. He tells me he no longer feels short of breath. He is otherwise in no acute distress on my initial evaluation. ROS: -Pulmonary: Shortness of breath x2 days *10 point review systems was conducted and is otherwise negative unless stated above *Outpatient medications and allergy history reviewed PE: General: Alert, frail and cachectic appearing, otherwise NAD HEENT: Normocephalic, atraumatic Eyes: Extraocular eye movement is intact, no scleral erythema Pulmonary: Diminished airflow bilaterally without wheezing or crackles Cardio: Regular rate and rhythm GI: Abdomen is soft, nontender : No suprapubic tenderness MSK: No evidence of trauma or malformation of the extremities, no edema Skin: No evidence of rash Neuro: Alert, no focal deficits Psychiatric: Cooperative wellness ambassador: - An order was placed for continuous cardiac monitoring - Patient was noted to be in sinus rhythm with rate of 80 EKG: Rate: 83 Rhythm: Sinus rhythm Intervals: QRS 172, QTc 514, otherwise within normal limits ST changes: No ST elevation Time: 0247 Medical Decision Making: Patient presented to the emergency department with a chief complaint of shortness of breath. States this is been worsening over the past 2 days. He apparently was hypoxic in the field despite increased nasal cannula oxygen to 3 L. He was brought to the ED and appears stable on my initial assessment on 3 L nasal cannula oxygen. Patient does complain of shortness of breath therefore was given DuoNeb breathing treatment given diminished breath sounds, also given IV steroids. Lab work shows some hypercarbia however pH is compensated, troponin is elevated at 29, patient denies any chest pain, EKG does not show any acute ischemic changes. Stable hemoglobin, no leukocytosis, no critical electrolyte abnormalities. Chest x-ray shows chronic appearing pulmonary edema with bilateral consolidation at the lung bases. Patient does not have leukocytosis or fever, low suspicion for pneumonia. I suspect that his symptoms are likely COPD exacerbation, he does not have any peripheral edema and does not have any crackles on auscultation. Reassessment he states he is feeling improved but still does feel some shortness of breath and does not feel well for discharge, given this case was discussed with the on-call hospitalist service for [facility], patient was admitted in stable condition for further care, COVID-19 test is pending at the time of admission. * CRITICAL CARE TIME: 35 min -Stabilization of hypoxia requiring supplemental oxygen, time spent at the bedside, interpretation of diagnostic studies, arrangement of admission Diagnosis: 1. Acute on chronic respiratory failure 2. COPD exacerbation 3. 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 Underwent procedure without any complications; monitored overnight and discharged home. 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 11/01/18 = widely patent coronary arteries History of cardiac cath SEPTEMBER 2018 AT [facility] NO STENTS History of cataract surgery BILATERAL History of colonoscopy History of tonsillectomy and adenoidectomy History of total left hip replacement Family History Mother Hypertension Brother FHx: myocardial infarction HALF-BROTHER Sister Kidney transplant status Social History Smoking Status: Former smoker Tobacco Type: Cigarettes Years Smoked: 50; Number of Years Since Quit: 3; Second Hand Exposure: No; Hx Alcohol Use: No Hx Substance Use: No Preferred Language: Czech Communication Ability: Effective Resistor Winder Required: No Beliefs That Will Affect Care: None marital status: Current Living Situation: Spouse Current Living Situation Comment: [employer] current occupational status: retired Feels Safe at Home: Yes Assistive Devices: Oxygen - Continuous Allergies Allergies Allergy/AdvReac Type Severity Reaction Status Date / Time No Known Allergies Allergy Unknown Verified 11/08/21 02:57 Home Meds Home Medications Medication Instructions Recorded Confirmed aspirin 81 mg tablet,delayed 81 mg PO QAM 10/27/18 11/08/21 release mirtazapine 45 mg tablet 45 mg PO HS 10/27/18 11/08/21 finasteride 5 mg tablet 5 mg PO HS 07/31/19 11/08/21 amlodipine 2.5 mg tablet 2.5 mg PO DAILY 06/23/21 11/08/21 tamsulosin 0.4 mg capsule 0.4 mg PO DAILY 06/23/21 11/08/21 Previous Rx's Medication Instructions Recorded amiodarone 200 mg tablet 100 mg PO QAM #0 tabs 08/11/19 acetaminophen 325 mg tablet 650 mg PO Q4H PRN fever or pain 06/25/21 #90 tabs Results & Data (ED) Vital Signs Vital Signs - 24 hr 11/08/21 02:43 11/08/21 02:43 11/08/21 02:43 Temperature 36.8 C Temperature Source Oral Pulse Rate 86 Pulse Rate [Apical] Pulse Rhythm Regular Respiratory Rate 24 Respiratory Effort / Characteristics SOB on Exertion SOB on Exertion Respiratory Depth Shallow Blood Pressure 140/70 Blood Pressure [Right Arm] Blood Pressure Mean 93 Blood Pressure Mean [Right Arm] Pulse Oximetry 95 Oxygen Delivery Method Nasal Cannula Nasal Cannula Oxygen Flow Rate 2 2 Sepsis Recent Fever Within 48 Hours No Sepsis New/Unexplained Change in Mental Status No Sepsis Action Taken by Nursing No Action Required 11/08/21 03:09 11/08/21 03:23 Temperature Temperature Source Pulse Rate Pulse Rate [Apical] 72 Pulse Rhythm Regular Respiratory Rate 19 Respiratory Effort / Characteristics Respiratory Depth Blood Pressure Blood Pressure [Right Arm] 137/64 Blood Pressure Mean Blood Pressure Mean [Right Arm] 88 Pulse Oximetry 100 Oxygen Delivery Method Nasal Cannula Oxygen Flow Rate 4 Sepsis Recent Fever Within 48 Hours Sepsis New/Unexplained Change in Mental Status Sepsis Action Taken by Nursing Laboratory Data Result diagrams: 11/08/21 02:50 11/08/21 02:50 Lab Results 11/08/21 11/08/21 11/08/21 Range/Units 02:50 02:50 02:50 WBC 8.96 (4.8-10.8) K/ul RBC 3.83 L (4.63-6.08) M/uL Hgb 12.7 L (14.0-18.0) g/dl Hct 38.7 L (40.1-51.0) % MCV 101.0 H (80.0-100.0) fL MCH 33.2 (25.0-34.0) pg MCHC 32.8 (32.0-36.0) g/dL RDW Std Deviation 46.0 (36.4-46.3) fL RDW Coeff of Ty 12.2 (11.5-14.5) % Plt Count 229 (130-400) K/uL MPV 11.7 (9.4-12.4) fL Immature Gran % (Auto) 0.4 % Neut % (Auto) 72.2 % Lymph % (Auto) 18.9 % Will % (Auto) 6.5 % Eos % (Auto) 1.3 % Baso % (Auto) 0.7 % Neut # (Auto) 6.47 (1.4-6.5) K/uL Lymph # (Auto) 1.69 (1.2-3.4) K/uL Will # (Auto) 0.58 (0.24-0.82) K/uL Eos # (Auto) 0.12 (0-0.50) K/uL Baso # (Auto) 0.06 (0-0.2) K/uL Immature Gran # (Auto) 0.04 H (0.00-0.02) K/uL PT Cancelled INR Cancelled APTT Cancelled PTT Ratio Cancelled VBG pH (7.36-7.41) VBG pCO2 (38-50) mmHg VBG pO2 mmHg VBG HCO3 mmol/L VBG O2 Saturation % VBG Base Excess mEq/L Sodium 134 L (136-145) mmol/L Potassium 4.0 (3.5-5.1) mmol/L Chloride 96 L (98-107) mmol/L Carbon Dioxide 28 (21-32) mmol/L Anion Gap 10 (3-11) BUN 16 (6-23) mg/dl Creatinine 1.20 (0.6-1.4) mg/dl Est Cr Clr Drug Dosing Not Reportable Est GFR ( Amer) 63.5 ml/min Est GFR (Non-Af Amer) 54.8 ml/min BUN/Creatinine Ratio 13.3 (10-20) Glucose 136 H (70-99(Fasting)) mg/dl Calcium 9.1 (8.5-10.1) mg/dl Total Bilirubin 0.8 (0.2-1.0) mg/dl AST 15 (13-39) U/L ALT 8 (7-52) U/L Alkaline Phosphatase 68 (34-104) U/L Troponin I High Sens 29.1 H (0-20) pg/ml B-Natriuretic Peptide (0-100) pg/ml Total Protein 7.8 (6.0-8.3) gm/dl Albumin 3.9 (3.4-5.0) gm/dl Globulin 3.9 (2.5-4.0) gm/dl Albumin/Globulin Ratio 1.0 (0.9-2) 11/08/21 11/08/21 Range/Units 02:50 03:25 WBC (4.8-10.8) K/ul RBC (4.63-6.08) M/uL Hgb (14.0-18.0) g/dl Hct (40.1-51.0) % MCV (80.0-100.0) fL MCH (25.0-34.0) pg MCHC (32.0-36.0) g/dL RDW Std Deviation (36.4-46.3) fL RDW Coeff of Ty (11.5-14.5) % Plt Count (130-400) K/uL MPV (9.4-12.4) fL Immature Gran % (Auto) % Neut % (Auto) % Lymph % (Auto) % Will % (Auto) % Eos % (Auto) % Baso % (Auto) % Neut # (Auto) (1.4-6.5) K/uL Lymph # (Auto) (1.2-3.4) K/uL Will # (Auto) (0.24-0.82) K/uL Eos # (Auto) (0-0.50) K/uL Baso # (Auto) (0-0.2) K/uL Immature Gran # (Auto) (0.00-0.02) K/uL PT INR APTT PTT Ratio VBG pH 7.36 (7.36-7.41) VBG pCO2 56 H (38-50) mmHg VBG pO2 31 mmHg VBG HCO3 32 mmol/L VBG O2 Saturation < 60.0 % VBG Base Excess 4.6 mEq/L Sodium (136-145) mmol/L Potassium (3.5-5.1) mmol/L Chloride (98-107) mmol/L Carbon Dioxide (21-32) mmol/L Anion Gap (3-11) BUN (6-23) mg/dl Creatinine (0.6-1.4) mg/dl Est Cr Clr Drug Dosing Est GFR ( Amer) ml/min Est GFR (Non-Af Amer) ml/min BUN/Creatinine Ratio (10-20) Glucose (70-99(Fasting)) mg/dl Calcium (8.5-10.1) mg/dl Total Bilirubin (0.2-1.0) mg/dl AST (13-39) U/L ALT (7-52) U/L Alkaline Phosphatase (34-104) U/L Troponin I High Sens (0-20) pg/ml B-Natriuretic Peptide 555 H (0-100) pg/ml Total Protein (6.0-8.3) gm/dl Albumin (3.4-5.0) gm/dl Globulin (2.5-4.0) gm/dl Albumin/Globulin Ratio (0.9-2) Administered Medications Discontinued Medications Albuterol (Albut/Ipratrop 3mg/0.5mg Neb 3 Ml Vial) 3 ml NEB NOW STA; Protocol Stop: 11/08/21 02:54 Last Admin: 11/08/21 03:04 Dose: 3 ml Documented By: GIACOMO Albuterol (Albut/Ipratrop 3mg/0.5mg Neb 3 Ml Vial) Confirm Administered Dose 3 ml .ROUTE .STK-MED ONE Stop: 11/08/21 02:54 Last Admin: 11/08/21 03:04 Dose: Not Given Documented By: GIACOMO Methylprednisolone (Methylprednisolone 125 Mg/2 Ml Vial) 80 mg IV NOW STA Stop: 11/08/21 02:53 Last Admin: 11/08/21 03:04 Dose: 80 mg Documented By: GIACOMO Methylprednisolone (Methylprednisolone 40 Mg/Ml Vial) Confirm Administered Dose 40 mg .ROUTE .STK-MED ONE Stop: 11/08/21 02:54 Last Admin: 11/08/21 03:04 Dose: Not Given Documented By: EMB Discharge Plan Visit Data Chief Complaint: Shortness of Breath/Dyspnea Stated Complaint: SHORTNESS OF BREATH ED Provider: Justin Cohn Discharge Problem: COPD (chronic obstructive pulmonary disease) Patient Disposition: Admitted As Inpatient Forms Stand Alone Forms: [facility] Prescriptions Prescriptions: No Action aspirin 81 mg Tablet,Delayed Release (Dr/Ec) 81 mg PO QAM mirtazapine 45 mg tablet 45 mg PO HS finasteride 5 mg tablet 5 mg PO HS amiodarone 200 mg tablet 100 mg PO QAM Qty: 0 0RF amlodipine 2.5 mg tablet 2.5 mg PO DAILY tamsulosin 0.4 mg capsule 0.4 mg PO DAILY acetaminophen 325 mg Tablet 650 mg PO Q4H PRN (Reason: fever or pain) Qty: 90 0RF Referrals Referrals: Taylor Lopez DO [Primary Care Provider] -
[2021-11-08 03:05] LABS: Basophils # (auto) 0.06 K/uL (0-0.2); Basophils % (auto) 0.7 %; Eosinophils # (auto) 0.12 K/uL (0-0.50); Eosinophils % (auto) 1.3 %; Hematocrit (blood only) 38.7 % (40.1-51.0); Hemoglobin 12.7 g/dl (14.0-18.0); Immature Granulocytes # (auto) 0.04 K/uL (0.00-0.02); Immature Granulocytes % (auto) 0.4 %; Lymphocytes # (auto) 1.69 K/uL (1.2-3.4); Lymphocytes % (auto) 18.9 %; Mean Corpuscular Hemoglobin 33.2 pg (25.0-34.0); Mean Corpuscular Hgb Conc 32.8 g/dL (32.0-36.0); Mean Platelet Volume 11.7 fL (9.4-12.4); Monocytes # (auto) 0.58 K/uL (0.24-0.82); Monocytes % (auto) 6.5 %; Neutrophils # (auto) 6.47 K/uL (1.4-6.5); Neutrophils % (auto) 72.2 %; Platelet Count 229 K/uL (130-400); RDW Coefficient of Variation 12.2 % (11.5-14.5); Red Blood Count 3.83 M/uL (4.63-6.08); White Blood Count 8.96 K/ul (4.8-10.8)
[2021-11-08 03:32] LABS: Alanine Aminotransferase 8 U/L (7-52); Albumin Level 3.9 gm/dl (3.4-5.0); Alkaline Phosphatase 68 U/L (34-104); Anion Gap 10 (3-11); Aspartate Aminotransferase 15 U/L (13-39); BUN Creatinine Ratio 13.3 (10-20); Bilirubin,Total 0.8 mg/dl (0.2-1.0); Blood Urea Nitrogen 16 mg/dl (6-23); Calcium 9.1 mg/dl (8.5-10.1); Carbon Dioxide 28 mmol/L (21-32); Chloride 96 mmol/L (98-107); Est GFR (African American) 63.5 ml/min; Est GFR (Non-African American) 54.8 ml/min; Globulin 3.9 gm/dl (2.5-4.0); Glucose 136 mg/dl (70-99(Fasting)); Sodium 134 mmol/L (136-145); Total Protein 7.8 gm/dl (6.0-8.3); Troponin I High Sensitivity 29.1 pg/ml (0-20)
[2021-11-08 03:37] LABS: Base Excess VBG 4.6 mEq/L; HCO3 VBG 32 mmol/L; Oxygen Saturation VBG < 60.0 %; PCO2 VBG 56 mmHg (38-50); PO2 VBG 31 mmHg; pH VBG 7.36 (7.36-7.41)
[2021-11-08 03:54] LABS: INR 1.1 (0.9-1.1); Partial Thromboplastin Ratio 0.9; Partial Thromboplastin Time 25.8 Seconds (21.0-31.0); Prothrombin Time 11.3 Seconds (9.0-12.0)
[2021-11-08 03:56] LABS: Influenza A virus by PCR Negative (Neg); Influenza B virus by PCR Negative (Neg); RSV by PCR Negative (Neg); SARS CoV2 RNA(COVID-19) InHosp NEGATIVE (Negative)
[2021-11-08] MEDS ORDERED: FUROSEMIDE INJ 20 MG/2 ML VIAL IV ONE (06:23)
[2021-11-08] MEDS ORDERED: NITROGLYCERIN SL 0.4 MG/TAB TAB SL PRN (06:23)
[2021-11-08] MEDS ORDERED: POLYETHYLENE (MIRALAX) 17 GM PACK PO PRN (06:23)
[2021-11-08] MEDS ORDERED: LEVALBUTEROL HCL 1.25 MG/3 ML NEB NEB PRN (06:23)
[2021-11-08] MEDS ORDERED: ACETAMINOPHEN 325 MG TAB PO PRN (06:23)
[2021-11-08] MEDS ORDERED: XOPENEX/ATROVENT 1.25mg/0.5MG NEB COMBO NEB SCH (07:00)
[2021-11-08] MEDS: IPRATROPIUM BROMIDE NEB SOLN 0.02% 2.5 ML VIAL INH SCH ×3 (07:18→19:13)
[2021-11-08] MEDS: LEVALBUTEROL 1.25MG/0.5ML NEB INH SCH ×3 (07:18→19:13)
--- NOTE | 2021-11-08 08:03 | XRay Report ---
XR chest 1V portable HISTORY: Dyspnea COMPARISON: Chest 06/23/2021. FINDINGS: No pneumothorax. The heart remains mildly enlarged. There is perihilar hazy airspace opacit ies with diffuse interstitial vascular thickening consistent with moderate pulmonary edema. Small yi ateral pleural effusions and bibasilar densities persist. IMPRESSION: No change in the pulmonary edema with bilateral pleural effusions and bibasilar densities. ACT 112: Negative or not required by law. Electronically signed by: Shamir Olmstead M.D. 11/08/2021 8:02 AM
[2021-11-08] MEDS: DOXYCYCLINE HYCLATE 100 MG CAP PO SCH ×2 (08:12→20:41)
[2021-11-08] MEDS: ASPIRIN 81 MG ECTAB PO SCH (08:12)
[2021-11-08] MEDS: HEPARIN SOD 5,000 UNIT/0.5 ML VIAL SQ SCH ×3 (08:13→22:14)
[2021-11-08] MEDS: predniSONE 20 MG TAB PO SCH (08:13)
[2021-11-08] MEDS: AMIODARONE 200 MG TAB PO SCH (08:13)
[2021-11-08] MEDS: TAMSULOSIN HCL 0.4 MG CAP PO SCH (08:13)
--- NOTE | 2021-11-08 08:43 | History and Physical Report ---
DATE OF NOTE: 11/08/2021. CHIEF COMPLAINT: Shortness of breath. HISTORY OF PRESENT ILLNESS: This is an 86-year-old male with past medical history significant for COPD, mild hyperlipidemia, pulmonary nodules, atherosclerotic cardiovascular disease, chronic systolic CHF, left bundle-branch block, hypertension, nonischemic cardiomyopathy, history of nonsustained ventricular tachycardia, severe malnutrition, BPH, chronic kidney disease stage III, depression, tobacco use disorder, who lives at home with his , presents with shortness of breath. The patient says he is having sob since yesterday and tonight got worse. Denies any fever or chills. He has chronic cough. Denies any chest pain. Currently, he is saturating okay on 4 liters, he is on oxygen chronically at home on 2 liters. He says initially he used to use it only at night, but last several months he is using all the time. He denies any headache. Vision is okay, hard of hearing. Has some chronic runny nose, no sore throat. Appetite is poor. No difficulty swallowing. No nausea, no abdominal pain. Normal bowel and bladder movements. No swelling in the legs. He states he ambulates without support. His kids live close by. He gets Meals on Wheels. ALLERGIES: No known drug allergies. PAST MEDICAL HISTORY: As mentioned above. PAST SURGICAL HISTORY: Left heart catheterization, colonoscopy, colonoscopy with biopsy, appendectomy, cataract surgery, removal of internal cardiac defibrillator, tonsillectomy, adenoidectomy, total hip replacement on the left side. MEDICATIONS: The patient is on amiodarone 100 mg p.o. daily, Tylenol 650 mg p.o. q. 4 hours p.r.n., amlodipine 2.5 mg p.o. daily, aspirin 81 mg p.o. daily, finasteride 5 mg p.o. at bedtime, Remeron 45 mg p.o. at bedtime, Flomax 0.4 mg p.o. daily. FAMILY HISTORY: Significant for mother has hypertension, uncle has stroke. SOCIAL HISTORY: . Quit smoking in 2019, smoked 1 pack a day for 44 years, currently no alcohol use. No drug use. REVIEW OF SYSTEMS: As per HPI. Rest of the review of systems is negative. PHYSICAL EXAMINATION: GENERAL: The patient is old and frail, not in acute distress. VITAL SIGNS: Temperature 36.8, pulse 76, respiratory rate 19, blood pressure 149/51, oxygen 99% on 4 liters. HEENT: Pupils equal, round and reactive to light. Oral mucosa moist. NECK: No JVD or neck masses. CARDIOVASCULAR: S1 and S2 heard. Regular rate and rhythm. No murmur, no gallop. RESPIRATORY SYSTEM: Normal AP diameter. No accessory muscle use. Bilateral diminished breath sounds. No wheezing heard. No crackles. ABDOMEN: Soft, bowel sounds present, nontender, no distention. CENTRAL NERVOUS SYSTEM: Cranial nerves II-XII grossly intact, nonfocal. EXTREMITIES: No edema, no erythema. LABORATORY DATA: WBC 8.9, hemoglobin 12.7, hematocrit 38.7, platelets 229. PT 11.3, INR 1.1, APTT 25.8. Venous blood gas, pH of 7.3, pCO2 of 56, pO2 of 31, bicarbonate 32. Sodium 134, potassium 4, chloride 96, bicarbonate 28, BUN 16, creatinine 1.2, serum glucose 136, calcium 9.1, total bilirubin 0.8, AST 15, ALT 8, alkaline phosphatase 68. Troponin I high sensitivity 29.1. BNP 555. SARS-CoV-2 PCR negative. Influenza A and B PCR negative. RSV PCR negative. IMAGING DATA: Chest x-ray, bilateral pleural effusions, possible infiltrates. EKG: Sinus rhythm with occasional PVCs at a rate of 83, left axis deviation, left bundle-branch block seen, QTc of 514. ASSESSMENT AND PLAN: This is an 86-year-old male who presents with shortness of breath. 1. Shortness of breath, acute on chronic respiratory failure, uses home oxygen 2 liters, currently requiring 4 liters. 2. History of chronic obstructive pulmonary disease, quit smoking in 2019, prior to it smoked for 44 years. 3. Also history of systolic congestive heart failure with EF of 15-20% on the echo in 07/2019. Not on any diuretics at home. Chest x-ray, questionable pleural effusions. In the ER, nebs and steroids given. Shortness of breath could be from his chronic obstructive pulmonary disease exacerbation and also [id number] systolic congestive heart failure. We will get CT chest to get a better picture. Starting on nebs around the clock and p.r.n. and p.o. prednisone and p.o. doxycycline. We will give a dose of IV Lasix 20 mg one-time dose. Follow the response. Monitor in the tele floor. Consult Cardiology in the a.m. for further recommendations. 4. History of nonsustained ventricular tachycardia, on amiodarone. 5. History of benign prostatic hyperplasia on Flomax and finasteride. 6. History of depression, on Remeron. 7. History of hypertension, on amlodipine. 8. Severe malnutrition. Dietitian consult, when stable. 9. History of chronic kidney disease stage III. Presently with creatinine of 1.2. We will follow the labs. 10. History of left bundle branch block and severe left ventricular dysfunction. As per Cardiology notes he underwent a cardiac catheterization and found to have nonischemic cardiomyopathy as his degree of left ventricular systolic dysfunction was out of proportion to the mild nonobstructive coronary artery disease. He was under home hospice in 2020, but later discontinued because he was doing okay. He has undergone implantation of biventricular pacemaker, AICD, but does not seem to significantly improve his functional status and ultimately it was removed due to pacemaker pocket infection and not reimplanted. 11. Deep venous thrombosis prophylaxis: We will place on heparin subcutaneous for now. DISPOSITION: Closely monitor in tele floor. Level 1 full code as per my discussion with the patient. PT, OT prior to discharge. Social service to help with discharge planning. Job ID: [id number] [facility]
--- NOTE | 2021-11-08 08:54 | CT Scan Report ---
CT chest diagnostic wo con CT DOSE: 245.92 mGy.cm HISTORY: pleural effusion?/consolidation? TECHNIQUE: Multiaxial CT images of the chest were performed without contrast. A dose lowering techni que was utilized adhering to the principles of ALARA. COMPARISON: Chest CT 05/07/2019. FINDINGS: Trace mucoid material within the trachea and right mainstem bronchi. The remaining central airways are patent. No pneumothorax. Mild emphysema. Punctate calcified granuloma within the left austin g apex. Mild respiratory motion artifact. There is diffuse interlobular septal thickening consistent with pulmonary edema. There are few punctate calcified granulomas within the right lung. There are mo derate to large bilateral pleural effusions. Consolidation within the majority of the bilateral lower lobes. This favors compressive atelectasis from the pleural effusions. A superimposed pneumonia is c onsidered less likely but not entirely excluded. No suspicious lytic or blastic osseous lesions. The visualized liver and spleen are unremarkable. Bilateral adrenal gland thickening is likely age-relate d. Normal caliber esophagus. The thyroid gland is unremarkable. Mild bilateral gynecomastia is noted. The heart is mildly enlarged. No pericardial effusion. Mild calcified plaque within the normal calib er thoracic aorta. A few mildly enlarged mediastinal lymph nodes, unchanged. This may be due to the c hronic pulmonary edema. No significant hilar lymphadenopathy. Moderate coronary artery calcifications are noted. IMPRESSION: 1. Cardiomegaly, pulmonary edema, and moderate to large bilateral pleural effusions. 2. Consolidation within the majority of the bilateral lower lobes. This favors compressive atelectasi s from the pleural effusions. A superimposed pneumonia is considered less likely but not entirely exc luded. 3. Mild emphysema. 4. Stable mild mediastinal lymphadenopathy. This is nonspecific but could be due to the chronic pulmo nary edema. ACT 112: Negative or not required by law. Electronically signed by: Shamir Olmstead M.D. 11/08/2021 8:51 AM
[2021-11-08] MEDS ORDERED: amLODIPine BESYLATE 5 MG TAB PO SCH (09:00)
--- NOTE | 2021-11-08 11:31 | Cardiology Consultation ---
Date of Consultation November 08, 2021 Assessment & Plan (1) Acute exacerbation of chronic obstructive pulmonary disease: (2) Hypoxemia: (3) CHF (congestive heart failure): (4) Chronic systolic CHF (congestive heart failure), NYHA class 4: (5) Acute on chronic HFrEF (heart failure with reduced ejection fraction): (6) Hyponatremia: (7) Orthostatic hypotension: (8) Nonischemic cardiomyopathy: (9) Pleural effusion: (10) Severe malnutrition: (11) Chronic systolic heart failure: Plan Complex, cachectic appearing, 86 year old male with end stage systolic congestive heart failure, NYHA Class IV, prior BiV/ICD extracted due to infection. EF 15%. Patient notably previously on hospice in 2019. Patient returns this admission with main complaint of acute on chronic shortness of breath appearing to be multifactorial in etiology - acute decompensated systolic congestive heart failure with bilateral pleural effusions, acute on chronic respiratory failure. Presenting symptoms have improved with increased oxygen supplemental and low dose furosemide. Past use of GDMT has been limited by bradycardia and symptomatic orthostatic hypotension. RECOMMENDATIONS/PLAN: Hold amlodipine. Add low dose IV furosemide, 20 mg daily Maintain Electrolytes Consider reduction in Tamsulosin dosing to every other day. Continue low dose amiodarone, RE history of NS-VT. Check TSH. LFT's OK. Continue Aspirin ? Trial of isordil then hydralazine May need to resume midodrine. Further recommendations pending the above, ongoing hospitalization, evaluation by Dr. Ba. Supervising Physician Co-Signing Physician Notes Patient was seen and examined, chart, medications, telemetry reviewed. Assessment and plan as well outlined above. Patient with longstanding history of nonischemic cardiomyopathy initially diagnosed 2008 with progressive LV decline, class IV congestive heart failure. Patient presents with several days history of worsening dyspnea and decompensated congestive heart failure by chest x-ray reflecting pulmonary edema and bilateral pleural effusions. Plan as outlined above, continue IV diuretics with limitation secondary to cardiac cachexia and hypotension. Overall prognosis limited History of Present Illness Reason for Consultation: ? Congestive heart failure Requesting Physician: Angelica Attending Physician: Jose History of Present Illness History of Present Illness: Mr. Krzysztof Victoria is a pleasant 86 year old male who was admitted to [facility] overnight, presenting to the ER via EMS due to complaints of acute on chronic over the preceding two days. Despite titration of supplemental oxygen, oxygen saturation was 79% on presentation. Hypoxia improved with the use of a nonrebreather mask with resultant improvement in presenting symptoms. Patient received 20 mg IV furosemide earlier this morning. Patient resting comfortably. Notes improvement in dyspnea from presentation. Denies pain, chest pain, palpitations, or PND. No headaches. No dizziness. No fevers or chills. No melena, hematochezia, or hematuria. Chest x-ray on presentation revealed diffuse interstitial vascular thickening consistent with moderate pulmonary edema, small bilateral pleural effusions, and bibasilar densities Chest CT revealed cardiomegaly, pulmonary edema, moderate to large bilateral pleural effusions, consolidation within the majority of the bilateral lower lobes favoring compressive atelectasis from the pleural effusions. Superimposed pneumonia not entirely excluded. Mild emphysema noted along with stable mild mediastinal lymphadenopathy. EKG on presentation revealed sinus rhythm at 83 bpm wtih occasional PVC's, LAD, LBBB with QRS duration 172 ms, QTc 514 ms. EKG on 11/08/2021 at 07:05:38 reveals sinus rhythm at 69 bpm with LAD, LBBB with QRS duration 174 ms, QTc 520 ms. Telemetry: Sinus rhythm/sinus bradycardia with rates ranging from the 50's to 80's. November 08, 2021 TTE Interpretation Summary ([facility], Dr. Ba): Mildly dilated LV. Mild concentric LVH. Severe global hypokinesis of the LV. Septal motion consistent with conduction abnormality. EF 15-20%. Moderately dilated LA. Moderate aortic sclerosis without significant stenosis. Moderate to severe mitral regurgitation. Mild TR. RVSP 50-60mmHg. Moderate sized left pleural effusion. Past Medical and Surgical History End stage nonischemic cardiomyopathy Nonobstructive coronary artery disease cardiac catheterization 2018 NYHA Class IV History of nonsustained ventricular tachycardia, controlled on low dose amiodarone History of biventricular pacemaker/AICD pocket infection and subsequent extraction of device GDMT limited by symptomatic orthostatic hypotension Chronic kidney disease stage III COPD with chronic hypoxemia, 2 L/min via nasal cannula Pulmonary nodules Hypertension Dyslipidemia Malnutrition BPH Depression History of tobacco use History of alcohol abuse. T/A as a child Appendectomy Left hip replacement. Colonic polyps Allergies Allergy/AdvReac Type Severity Reaction Status Date / Time No Known Allergies Allergy Unknown Verified 11/08/21 02:57 Home Medications Medication Instructions Recorded Confirmed Type aspirin 81 mg tablet,delayed 81 mg PO QAM 10/27/18 11/08/21 History release mirtazapine 45 mg tablet 45 mg PO HS 10/27/18 11/08/21 History finasteride 5 mg tablet 5 mg PO HS 07/31/19 11/08/21 History amiodarone 200 mg tablet 100 mg PO QAM #0 tabs 08/11/19 11/08/21 Rx amlodipine 2.5 mg tablet 2.5 mg PO DAILY 06/23/21 11/08/21 History tamsulosin 0.4 mg capsule 0.4 mg PO DAILY 06/23/21 11/08/21 History acetaminophen 325 mg tablet 650 mg PO Q4H PRN fever or pain 06/25/21 11/08/21 Rx #90 tabs Patient History Medical History 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 Underwent procedure without any complications; monitored overnight and discharged home. 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 11/01/18 = widely patent coronary arteries History of cardiac cath SEPTEMBER 2018 AT [facility] NO STENTS History of cataract surgery BILATERAL History of colonoscopy History of tonsillectomy and adenoidectomy History of total left hip replacement Family History Mother Hypertension Brother FHx: myocardial infarction HALF-BROTHER Sister Kidney transplant status Social History Smoking Status: Former smoker Tobacco Type: Cigarettes Years Smoked: 50; Number of Years Since Quit: 3; Second Hand Exposure: No; Hx Alcohol Use: No Hx Substance Use: No Preferred Language: Danish Communication Ability: Effective Crib Attendant Required: No Beliefs That Will Affect Care: None marital status: Current Living Situation: Spouse Current Living Situation Comment: Wfe and grandaughter current occupational status: retired Other Information That Helps Us Care for You: No Feels Safe at Home: Yes Safety Concerns: Feels Safe At This Time Assistive Devices: Oxygen - Continuous Review of Systems Review of Systems: No recent visual changes. hard of hearing. Chronic cough. Reflux. No appetite. Lives at home with his . Complete Review of Systems is otherwise as stated above, negative, or noncontributory. Physical Exam Physical Exam: General: Cachetic appearing. Alert and oriented to person and place. NAD. Quite hard of hearing. HENT: Normocephalic. Atraumatic. Eyes: PER. Conjunctiva pink, sclera clear. neck: No carotid bruits. No JVD. + HJR. Heart: Irregular with occasional ectopy. Soft apical systolic murmur. + Gallop. Displaced PMI. No rub. Lungs: Absent breath sounds at the bases. Decreased. Diminished. Faint left upper expiratory wheeze. Abdomen: +BS. Soft. Nontender. No masses or organomegaly. Extremities: No clubbing, cyanosis, or significant edema. Limited neurological examination is without focal deficits. Pulses: radial=2/4, posterior tibial=0/4. Results & Data ([facility]) Vital Signs (Past 12 Hours) Vital Signs Temp Pulse Pulse Pulse Resp BP BP 11/08/21 11:29 36.7 C 67 18 101/48 L 11/08/21 08:00 80 11/08/21 08:00 11/08/21 07:19 73 18 11/08/21 06:28 36.4 C L 84 25 H 135/73 11/08/21 05:30 67 18 11/08/21 05:30 116/57 L 11/08/21 05:00 76 19 11/08/21 05:00 130/63 11/08/21 04:30 68 19 11/08/21 04:30 114/51 L 11/08/21 04:00 73 18 11/08/21 04:00 124/64 11/08/21 03:30 72 20 11/08/21 03:30 127/67 11/08/21 03:00 75 22 11/08/21 03:00 137/64 11/08/21 02:56 76 29 H 11/08/21 04:00 76 19 114/51 L 11/08/21 03:39 75 16 127/67 11/08/21 03:23 72 19 137/64 11/08/21 02:43 11/08/21 02:43 36.8 C 86 24 140/70 Pulse Ox O2 Del Method O2 Flow Rate 11/08/21 11:29 95 Nasal Cannula 2 11/08/21 08:00 11/08/21 08:00 Room Air 11/08/21 07:19 96 Nasal Cannula 3 11/08/21 06:28 94 Nasal Cannula 3 11/08/21 05:30 100 11/08/21 05:30 11/08/21 05:00 100 11/08/21 05:00 11/08/21 04:30 100 11/08/21 04:30 11/08/21 04:00 100 11/08/21 04:00 11/08/21 03:30 99 11/08/21 03:30 11/08/21 03:00 98 11/08/21 03:00 11/08/21 02:56 97 11/08/21 04:00 99 Nasal Cannula 11/08/21 03:39 100 Nasal Cannula 4 11/08/21 03:23 100 Nasal Cannula 4 11/08/21 02:43 Nasal Cannula 2 11/08/21 02:43 95 Nasal Cannula 2 Laboratory Results Laboratory Results - last 24 hr 11/08/21 11/08/21 11/08/21 02:00 02:50 02:50 WBC 8.96 RBC 3.83 L Hgb 12.7 L Hct 38.7 L MCV 101.0 H MCH 33.2 MCHC 32.8 RDW Std Deviation 46.0 RDW Coeff of Ty 12.2 Plt Count 229 MPV 11.7 Immature Gran % (Auto) 0.4 Neut % (Auto) 72.2 Lymph % (Auto) 18.9 [place] % (Auto) 6.5 Eos % (Auto) 1.3 Baso % (Auto) 0.7 Neut # (Auto) 6.47 Lymph # (Auto) 1.69 [place] # (Auto) 0.58 Eos # (Auto) 0.12 Baso # (Auto) 0.06 Immature Gran # (Auto) 0.04 H PT Cancelled INR Cancelled APTT Cancelled PTT Ratio Cancelled VBG pH VBG pCO2 VBG pO2 VBG HCO3 VBG O2 Saturation VBG Base Excess Sodium Potassium Chloride Carbon Dioxide Anion Gap BUN Creatinine Est Cr Clr Drug Dosing Est GFR ( Amer) Est GFR (Non-Af Amer) BUN/Creatinine Ratio Glucose Calcium Total Bilirubin AST ALT Alkaline Phosphatase Troponin I High Sens B-Natriuretic Peptide Total Protein Albumin Globulin Albumin/Globulin Ratio SARS-CoV-2 (PCR) NEGATIVE Influenza Type A (PCR) Negative Influenza Type B (PCR) Negative RSV (RT-PCR) Negative 11/08/21 11/08/21 11/08/21 02:50 02:50 03:25 WBC RBC Hgb Hct MCV MCH MCHC RDW Std Deviation RDW Coeff of Ty Plt Count MPV Immature Gran % (Auto) Neut % (Auto) Lymph % (Auto) [place] % (Auto) Eos % (Auto) Baso % (Auto) Neut # (Auto) Lymph # (Auto) [place] # (Auto) Eos # (Auto) Baso # (Auto) Immature Gran # (Auto) PT INR APTT PTT Ratio VBG pH 7.36 VBG pCO2 56 H VBG pO2 31 VBG HCO3 32 VBG O2 Saturation < 60.0 VBG Base Excess 4.6 Sodium 134 L Potassium 4.0 Chloride 96 L Carbon Dioxide 28 Anion Gap 10 BUN 16 Creatinine 1.20 Est Cr Clr Drug Dosing Not Reportable Est GFR ( Amer) 63.5 Est GFR (Non-Af Amer) 54.8 BUN/Creatinine Ratio 13.3 Glucose 136 H Calcium 9.1 Total Bilirubin 0.8 AST 15 ALT 8 Alkaline Phosphatase 68 Troponin I High Sens 29.1 H B-Natriuretic Peptide 555 H Total Protein 7.8 Albumin 3.9 Globulin 3.9 Albumin/Globulin Ratio 1.0 SARS-CoV-2 (PCR) Influenza Type A (PCR) Influenza Type B (PCR) RSV (RT-PCR) 11/08/21 11/08/21 03:33 06:58 WBC RBC Hgb Hct MCV MCH MCHC RDW Std Deviation RDW Coeff of Ty Plt Count MPV Immature Gran % (Auto) Neut % (Auto) Lymph % (Auto) [place] % (Auto) Eos % (Auto) Baso % (Auto) Neut # (Auto) Lymph # (Auto) [place] # (Auto) Eos # (Auto) Baso # (Auto) Immature Gran # (Auto) PT 11.3 INR 1.1 APTT 25.8 PTT Ratio 0.9 VBG pH VBG pCO2 VBG pO2 VBG HCO3 VBG O2 Saturation VBG Base Excess Sodium Potassium Chloride Carbon Dioxide Anion Gap BUN Creatinine Est Cr Clr Drug Dosing Est GFR ( Amer) Est GFR (Non-Af Amer) BUN/Creatinine Ratio Glucose Calcium Total Bilirubin AST ALT Alkaline Phosphatase Troponin I High Sens 30.0 H B-Natriuretic Peptide Total Protein Albumin Globulin Albumin/Globulin Ratio SARS-CoV-2 (PCR) Influenza Type A (PCR) Influenza Type B (PCR) RSV (RT-PCR) Diagnostic Findings See above (1) CHF (congestive heart failure) Heart failure chronicity: acute on chronic Heart failure type: unspecified Qualified Code(s): I50.9 - Heart failure, unspecified
--- NOTE | 2021-11-08 12:53 | Electrocardiogram Report ---
Test Reason : Blood Pressure : / mmHG Vent. Rate : 083 BPM Atrial Rate : 083 BPM P-R Int : 170 ms QRS Dur : 172 ms QT Int : 438 ms P-R-T Axes : 079 -30 129 degrees QTc Int : 514 ms Poor data quality, interpretation may be adversely affected Sinus rhythm with occasional Premature ventricular complexes Left axis deviation Left bundle branch block Abnormal ECG When compared with ECG of 23-JUN-2021 14:08, Premature ventricular complexes are now Present Confirmed by Alexander Yang ([id number]) on 11/08/2021 12:53:27 PM Referred By: REFERRED SELF Confirmed By:Alexander Yang
--- NOTE | 2021-11-08 12:56 | Electrocardiogram Report ---
Test Reason : Blood Pressure : / mmHG Vent. Rate : 069 BPM Atrial Rate : 069 BPM P-R Int : 190 ms QRS Dur : 174 ms QT Int : 486 ms P-R-T Axes : 057 -33 136 degrees QTc Int : 520 ms Sinus rhythm with occasional Premature ventricular complexes Left axis deviation Left bundle branch block Abnormal ECG When compared with ECG of 08-NOV-2021 02:47, (unconfirmed) No significant change was found Confirmed by Alexander Yang ([id number]) on 11/08/2021 12:56:46 PM Referred By: REFERRED SELF Confirmed By:Alexander Yang
[2021-11-08 14:47] LABS: Appearance Urine Clear (Clear); Bilirubin Urine Negative (Negative); Blood Urine Negative (Negative); Color Urine Yellow; Glucose Urine UA Negative (Negative); Ketones Urine Trace (Negative); Leukocyte Esterase Urine Negative (Negative); Nitrite Urine Negative (Negative); Protein Urine Negative (Negative); Urobilinogen Urine Negative (Negative); pH Urine 5.5 (4.5-7.5)
--- NOTE | 2021-11-08 15:02 | Communication Note ---
Date of Service: November 08, 2021 Pt was seen and examined. Lying in bed with no distress. Pt said that his breathing improves. CT chest showed cardiomegaly, pulmonary edema, and moderate to large bilateral pleural effusions. Consolidation within the majority of the bilateral lower lobes. contine Doxycycline and prednisone. BNP 555. Cardiology on board. Continue IV lasix 20mg BID. Monitor BMP while on IV lasix. Continue monitor closely. MD Jose
[2021-11-08] MEDS: FUROSEMIDE INJ 20 MG/2 ML VIAL IV SCH (17:05)
[2021-11-08] MEDS: PANTOprazole 40 MG TAB PO SCH (18:24)
[2021-11-08] MEDS: MIRTAZAPINE SOLTAB 15 MG PO SCH (20:41)
[2021-11-08] MEDS: FINASTERIDE 5 MG TAB PO SCH (20:41)
[2021-11-09] MEDS: HEPARIN SOD 5,000 UNIT/0.5 ML VIAL SQ SCH ×3 (05:14→21:43)
[2021-11-09 06:12] LABS: Hematocrit (blood only) 31.4 % (40.1-51.0); Hemoglobin 10.7 g/dl (14.0-18.0); Mean Corpuscular Hemoglobin 33.3 pg (25.0-34.0); Mean Corpuscular Hgb Conc 34.1 g/dL (32.0-36.0); Mean Corpuscular Volume 97.8 fL (80.0-100.0); Mean Platelet Volume 11.2 fL (9.4-12.4); Platelet Count 188 K/uL (130-400); RDW Coefficient of Variation 12.2 % (11.5-14.5); RDW Standard Deviation 44.5 fL (36.4-46.3); Red Blood Count 3.21 M/uL (4.63-6.08)
[2021-11-09 06:41] LABS: BUN Creatinine Ratio 19.9 (10-20); Calcium 8.9 mg/dl (8.5-10.1); Creatinine Clr Calc Pharmacy 25.6 ml/min; Est GFR (African American) 44.5 ml/min; Est GFR (Non-African American) 38.4 ml/min; Magnesium 1.9 mg/dl (1.7-2.4); Potassium 3.9 mmol/L (3.5-5.1)
[2021-11-09 06:55] LABS: Basophils # (auto) 0.01 K/uL (0-0.2); Basophils % (auto) 0.1 %; Immature Granulocytes # (auto) 0.16 K/uL (0.00-0.02); Immature Granulocytes % (auto) 0.8 %; Lymphocytes # (auto) 0.59 K/uL (1.2-3.4); Lymphocytes % (auto) 3.1 %; Monocytes # (auto) 0.83 K/uL (0.24-0.82); Monocytes % (auto) 4.4 %; Neutrophils # (auto) 17.41 K/uL (1.4-6.5); Neutrophils % (auto) 91.6 %
[2021-11-09] MEDS: TAMSULOSIN HCL 0.4 MG CAP PO SCH (07:37)
[2021-11-09] MEDS: DOXYCYCLINE HYCLATE 100 MG CAP PO SCH ×2 (07:37→21:44)
[2021-11-09] MEDS: AMIODARONE 200 MG TAB PO SCH (07:37)
[2021-11-09] MEDS: predniSONE 20 MG TAB PO SCH (07:37)
[2021-11-09] MEDS: ASPIRIN 81 MG ECTAB PO SCH (07:37)
[2021-11-09] MEDS: PANTOprazole 40 MG TAB PO SCH (07:37)
[2021-11-09] MEDS: FUROSEMIDE INJ 20 MG/2 ML VIAL IV SCH (07:38)
[2021-11-09] MEDS ORDERED: FUROSEMIDE INJ 20 MG/2 ML VIAL IV SCH (09:00)
--- NOTE | 2021-11-09 09:58 | Cardiology Progress Note ---
Date of Service November 09, 2021 Assessment & Plan (1) Acute exacerbation of chronic obstructive pulmonary disease: (2) Hypoxemia: (3) CHF (congestive heart failure): (4) Chronic systolic CHF (congestive heart failure), NYHA class 4: (5) Acute on chronic HFrEF (heart failure with reduced ejection fraction): (6) Hyponatremia: (7) Orthostatic hypotension: (8) Nonischemic cardiomyopathy: (9) Pleural effusion: (10) Severe malnutrition: (11) Chronic systolic heart failure: Plan Complex, cachectic appearing, 86 year old male with end stage systolic congestive heart failure, NYHA Class IV. Prior BiV/ICD extracted due to infection. EF 15%. Patient notably previously on hospice. Patient returns this admission with main complaint of acute on chronic shortness of breath improving primarily with titration of supplemental oxygen, appearing to be multifactorial in etiology - acute decompensated systolic congestive heart failure with bilateral pleural effusions, acute on chronic respiratory failure. GDMT has been and continues to be limited by bradycardia and symptomatic orthostatic hypotension. RECOMMENDATIONS/PLAN: Options are very limited. Continue cautious IV diuresis Maintain electrolytes Continue low dose amiodarone, RE history of NS-VT. Continue Aspirin Consider reduction in Tamsulosin dosing to every other day. ? trial of low dose isordil followed by hydralazine May need to resume midodrine. Amlodipine discontinued this admission Admission and Anticipated Discharge Date Admission Date: November 08, 2021 Subjective Patient seen and examined. Chart, medications, and telemetry reviewed. Feeling better. Notes improvement in prior abdominal complaints. Notes having a bowel movement this morning. Feels breathing has improved primarily from the addition of supplemental oxygen. Continuous telemetry monitoring reveals sinus predominantly in the 70s with occasional ectopy observed overnight. Review of Systems Review of Systems: Complete Review of Systems is otherwise as stated above, negative, or noncontributory. Physical Exam Physical Exam: General: Cachectic appearing. Alert and oriented to person and place. NAD. Hard of hearing. HENT: Normocephalic. Atraumatic. Eyes: PER. Conjunctiva pink, sclera clear. neck: No carotid bruits. No JVD. Heart: RRR, 74 bpm. Soft apical systolic murmur. + Gallop. Displaced PMI. No rub. Lungs: Absent breath sounds at the bases. Decreased. Diminished. No wheeze. Abdomen: +BS. Soft. Nontender. No masses or organomegaly. Extremities: No clubbing, cyanosis, or significant edema. Limited neurological examination is without focal deficits. Pulses: radial=2/4, posterior tibial=0/4. Results & Data ([facility]) Vital Signs (Past 12 Hours) Vital Signs Temp Pulse Pulse Pulse Resp BP Pulse Ox 11/09/21 08:00 68 11/09/21 08:00 11/09/21 08:10 36.4 C L 88 20 123/56 L 91 11/09/21 03:00 36.4 C L 81 16 115/60 94 11/08/21 22:51 36.6 C 74 16 99/46 L 96 11/08/21 22:49 77 O2 Del Method O2 Flow Rate 11/09/21 08:00 11/09/21 08:00 Nasal Cannula 2 11/09/21 08:10 Nasal Cannula 2 11/09/21 03:00 Nasal Cannula 11/08/21 22:51 Nasal Cannula 2 11/08/21 22:49 Laboratory Results Laboratory Results - last 24 hr 11/08/21 11/08/21 11/08/21 07:06 13:09 14:00 WBC RBC Hgb Hct MCV MCH MCHC RDW Std Deviation RDW Coeff of Ty Plt Count MPV Immature Gran % (Auto) Neut % (Auto) Lymph % (Auto) [place] % (Auto) Eos % (Auto) Baso % (Auto) Neut # (Auto) Lymph # (Auto) [place] # (Auto) Eos # (Auto) Baso # (Auto) Immature Gran # (Auto) Sodium Potassium Chloride Carbon Dioxide Anion Gap BUN Creatinine Est Cr Clr Drug Dosing Est GFR ( Amer) Est GFR (Non-Af Amer) BUN/Creatinine Ratio Glucose Calcium Magnesium Troponin I High Sens 24.9 H TSH 2.069 Urine Color Yellow Urine Appearance Clear Urine pH 5.5 Ur Specific Wilson 1.010 Urine Protein Negative Urine Glucose (UA) Negative Urine Ketones Trace H Urine Blood Negative Urine Nitrite Negative Urine Bilirubin Negative Urine Urobilinogen Negative Ur Leukocyte Esterase Negative 11/09/21 11/09/21 05:56 05:56 WBC 19.00 H RBC 3.21 L Hgb 10.7 L Hct 31.4 L MCV 97.8 MCH 33.3 MCHC 34.1 RDW Std Deviation 44.5 RDW Coeff of Ty 12.2 Plt Count 188 MPV 11.2 Immature Gran % (Auto) 0.8 Neut % (Auto) 91.6 Lymph % (Auto) 3.1 Brooke % (Auto) 4.4 Eos % (Auto) 0.0 Baso % (Auto) 0.1 Neut # (Auto) 17.41 H Lymph # (Auto) 0.59 L [place] # (Auto) 0.83 H Eos # (Auto) 0.00 Baso # (Auto) 0.01 Immature Gran # (Auto) 0.16 H Sodium 132 L Potassium 3.9 Chloride 95 L Carbon Dioxide 31 Anion Gap 6 BUN 32 H Creatinine 1.61 H D Est Cr Clr Drug Dosing 25.6 Est GFR ( Amer) 44.5 Est GFR (Non-Af Amer) 38.4 BUN/Creatinine Ratio 19.9 Glucose 134 H Calcium 8.9 Magnesium 1.9 Troponin I High Sens TSH Urine Color Urine Appearance Urine pH Ur Specific Wilson Urine Protein Urine Glucose (UA) Urine Ketones Urine Blood Urine Nitrite Urine Bilirubin Urine Urobilinogen Ur Leukocyte Esterase (1) CHF (congestive heart failure) Heart failure chronicity: acute on chronic Heart failure type: unspecified Qualified Code(s): I50.9 - Heart failure, unspecified
[2021-11-09] MEDS ORDERED: FAMOTIDINE 20 MG in SYRINGE 3 ML IV STA (15:57)
[2021-11-09] MEDS: MIRTAZAPINE SOLTAB 15 MG PO SCH (21:43)
[2021-11-09] MEDS: FINASTERIDE 5 MG TAB PO SCH (21:44)
[2021-11-10] MEDS: HEPARIN SOD 5,000 UNIT/0.5 ML VIAL SQ SCH ×3 (06:34→20:46)
[2021-11-10] MEDS: TAMSULOSIN HCL 0.4 MG CAP PO SCH (08:23)
[2021-11-10] MEDS: AMIODARONE 200 MG TAB PO SCH (08:23)
[2021-11-10] MEDS: DOXYCYCLINE HYCLATE 100 MG CAP PO SCH ×2 (08:23→20:46)
[2021-11-10] MEDS: ASPIRIN 81 MG ECTAB PO SCH (08:23)
[2021-11-10] MEDS: PANTOprazole 40 MG TAB PO SCH (08:23)
[2021-11-10] MEDS: predniSONE 20 MG TAB PO SCH (08:25)
[2021-11-10] MEDS: FUROSEMIDE INJ 20 MG/2 ML VIAL IV SCH (08:25)
--- NOTE | 2021-11-10 10:27 | Cardiology Progress Note ---
Date of Service November 10, 2021 Assessment & Plan (1) Acute exacerbation of chronic obstructive pulmonary disease: (2) Hypoxemia: (3) CHF (congestive heart failure): (4) Chronic systolic CHF (congestive heart failure), NYHA class 4: (5) Acute on chronic HFrEF (heart failure with reduced ejection fraction): (6) Hyponatremia: (7) Orthostatic hypotension: (8) Nonischemic cardiomyopathy: (9) Pleural effusion: (10) Severe malnutrition: (11) Chronic systolic heart failure: Plan Complex, cachectic appearing, 86 year old male with end stage systolic congestive heart failure, nonischemic cardiomyopathy initially diagnosed in 2008, with progressive declined in LV function, NYHA Class IV congestive heart failiure. Prior BiV/ICD extracted due to infection. EF 15%. Patient returns this admission with main complaint of acute on chronic shortness of breath improving initially following titration of supplemental oxygen therapy though appearing to be multifactorial in etiology (acute on chronic respiratory failure and acute decompensated systolic congestive heart failure with bilateral pleural effusions. Appropriate medical therapy limited by bradycardia and symptomatic hypotension. Further recommendations pending review of the portable chest x-ray and laboratory work requested. RECOMMENDATIONS/PLAN: Portable chest x-ray (ordered) Laboratory work (ordered) Continue cautious IV diuresis Maintain electrolytes Continue low dose amiodarone, RE history of NS-VT. Continue Aspirin Overall prognosis limited. Patient previously on hospice, appearing to be appropriate course of management once again. Admission and Anticipated Discharge Date Admission Date: November 08, 2021 Supervising Physician Co-Signing Physician Notes Patient seen and personally examined. Chronically frail male with underlying ischemic cardiomyopathy and decompensated congestive heart failure with worsening cough and wheeze this morning. Chest x-ray with little change Renal function has declined slightly Recommendations as above Will give additional dose of furosemide this a.m. Subjective Patient seen and examined. Chart, medications, and telemetry reviewed. Increased dyspnea. Wet cough. + Wheeze. No chest pain. No abdominal pain. No palpitations. No edema. Continuous telemetry monitoring reveals sinus with atrial ectopy, rates typically in the 60's to 80's. No significant arrhythmias observed. Review of Systems Review of Systems: Complete Review of Systems is otherwise as stated above, negative, or noncontributory. Physical Exam Physical Exam: General: Cachectic appearing. Alert and oriented to person and place. NAD. Hard of hearing. HENT: Normocephalic. Atraumatic. Eyes: PER. Conjunctiva pink, sclera clear. neck: No JVD. Heart: RRR, 74 bpm. Soft apical systolic murmur. + Gallop. Displaced PMI. No rub. Lungs: Decreased. Diminished. Diffuse rhonchi. + Wheeze. Abdomen: +BS. Soft. Nontender. No masses or organomegaly. Extremities: No clubbing, cyanosis, or significant edema. Limited neurological examination is without focal deficits. Pulses: radial=2/4, posterior tibial=0/4. Results & Data ([facility]) Vital Signs (Past 12 Hours) Vital Signs Temp Pulse Pulse Resp BP BP Pulse Ox 11/10/21 08:00 11/10/21 07:59 36.6 C 70 20 122/68 94 11/10/21 03:59 83 11/10/21 03:07 36.5 C 82 20 154/75 H 94 11/10/21 00:28 11/09/21 22:47 36.7 C 86 18 136/67 95 O2 Del Method O2 Flow Rate 11/10/21 08:00 Nasal Cannula 4 11/10/21 07:59 Nasal Cannula 11/10/21 03:59 11/10/21 03:07 Nasal Cannula 3.0 11/10/21 00:28 Nasal Cannula 2 11/09/21 22:47 Nasal Cannula 2.0 Laboratory Results No AM labs or CXR available for reviewed (ordered) (1) CHF (congestive heart failure) Heart failure chronicity: acute on chronic Heart failure type: unspecified Qualified Code(s): I50.9 - Heart failure, unspecified
--- NOTE | 2021-11-10 10:46 | XRay Report ---
XR chest 1V portable CLINICAL HISTORY: increased sob. COMPARISON STUDY: 11/08/2021 TECHNIQUE: 1 view of the chest FINDINGS: Single frontal view of the chest demonstrates the heart to again be enlarged. Compared to previous ex amination, diffuse interstitial edema, moderate sized bilateral pleural effusions and bibasilar atele ctasis/collapse are again seen. Findings are essentially unchanged . There is no acute osseous pathol ogy. IMPRESSION: 1. No significant interval change in diffuse interstitial edema, moderate size bilateral pleural effu sions and bibasilar atelectasis/collapse. ACT 112: Negative or not required by law. Electronically signed by: Carlos Jaramillo M.D. 11/10/2021 10:45 AM
[2021-11-10 11:22] LABS: Basophils # (auto) 0.01 K/uL (0-0.2); Basophils % (auto) 0.1 %; Hematocrit (blood only) 37.1 % (40.1-51.0); Hemoglobin 12.6 g/dl (14.0-18.0); Immature Granulocytes # (auto) 0.11 K/uL (0.00-0.02); Immature Granulocytes % (auto) 0.6 %; Lymphocytes # (auto) 0.79 K/uL (1.2-3.4); Mean Corpuscular Hemoglobin 34.1 pg (25.0-34.0); Mean Corpuscular Volume 100.3 fL (80.0-100.0); Mean Platelet Volume 11.6 fL (9.4-12.4); Monocytes # (auto) 1.62 K/uL (0.24-0.82); Monocytes % (auto) 8.3 %; Neutrophils # (auto) 17.02 K/uL (1.4-6.5); Platelet Count 216 K/uL (130-400); RDW Coefficient of Variation 12.6 % (11.5-14.5); RDW Standard Deviation 46.3 fL (36.4-46.3); White Blood Count 19.55 K/ul (4.8-10.8)
--- NOTE | 2021-11-10 11:41 | Hospitalist Progress Note ---
Date of Service November 09, 2021 Assessment & Plan (1) Acute on chronic HFrEF (heart failure with reduced ejection fraction): Plan: This is an 86-year-old male who presents with shortness of breath. 1. Shortness of breath, acute on chronic respiratory failure, uses home oxygen 2 liters, on admission requiring 4 liters. 2. History of chronic obstructive pulmonary disease, quit smoking in 2019, prior to it smoked for 44 years. 3. Also history of systolic congestive heart failure with EF of 15-20% on the echo in 07/2019. Not on any diuretics at home. Chest x-ray, w/pleural effusions. In the ER, nebs and steroids given. Shortness of breath could be from his chronic obstructive pulmonary disease exacerbation and also [id number] systolic congestive heart failure. CT chest ordered IMPRESSION: 1. Cardiomegaly, pulmonary edema, and moderate to large bilateral pleural effusions. 2. Consolidation within the majority of the bilateral lower lobes. This favors compressive atelectasis from the pleural effusions. A superimposed pneumonia is considered less likely but not entirely excluded. 3. Mild emphysema. 4. Stable mild mediastinal lymphadenopathy. This is nonspecific but could be due to the chronic pulmonary edema. Starting on nebs around the clock and p.r.n. and p.o. prednisone and p.o. doxycycline. IV Lasix 20 mg on admission - cont. per cardiology Monitor in the tele floor. Cardiology consulted, appreciate their input 4. History of nonsustained ventricular tachycardia, on amiodarone. 5. History of benign prostatic hyperplasia on Flomax and finasteride. 6. History of depression, on Remeron. 7. History of hypertension, on amlodipine. 8. Severe malnutrition. Dietitian consult, when stable. 9. History of chronic kidney disease stage III. Presently with creatinine of 1.2. We will follow the labs. 10. History of left bundle branch block and severe left ventricular dysfunction. As per Cardiology notes he underwent a cardiac catheterization and found to have nonischemic cardiomyopathy as his degree of left ventricular systolic dysfunction was out of proportion to the mild nonobstructive coronary artery disease. He was under home hospice in 2019, but later discontinued because he was doing okay. He has undergone implantation of biventricular pacemaker, AICD, but does not seem to significantly improve his functional status and ultimately it was removed due to pacemaker pocket infection and not reimplanted. DVT prophylaxis:heparin subcutaneous for now. DISPOSITION: Closely monitor in tele floor. Full code as per admitting physician discussion with the patient. PT, OT prior to discharge. Social service to help with discharge planning. Admission and Anticipated Discharge Date Admission Date: November 08, 2021 Subjective Patient seen in follow-up of shortness of breath, CHF exacerbation Patient is lying in bed, feeling much better today Denies having any edema, only complaint was shortness of breath Denies fevers or chills or significant cough No abdominal pain, nausea or vomiting Cardiology following Review of Systems Review of Systems: All systems reviewed & are unremarkable except as noted in Subjective Physical Exam Physical Exam: GENERAL:Elderly, frail, cachectic male,in NAD, on suppl. O2 via NC HEENT: NC/AT. EOMI. Pupils equal, round and reactive to light. Oral mucosa moist. NECK: supple. CARDIOVASCULAR: S1 and S2 heard. Regular rate and rhythm. syst. murmur RESPIRATORY SYSTEM: Normal AP diameter. No accessory muscle use. Bilateral d iminished breath sounds. No wheezing heard. ABDOMEN: Soft, bowel sounds present, nontender, no distention. NEURO:Awake and alert, able to answer simple questions appropriately. Speech fluent, moves extremities, hard of hearing EXTREMITIES: No edema, no erythema. Results & Data Results & Data ([facility]) Vital Signs (Past 12 Hours)
[2021-11-10] MEDS ORDERED: FUROSEMIDE 40 MG/4 ML VIAL IV ONE (11:45)
[2021-11-10 11:51] LABS: Albumin Level 3.7 gm/dl (3.4-5.0); BUN Creatinine Ratio 31.7 (10-20); Bilirubin,Total 0.6 mg/dl (0.2-1.0); Calcium 9.1 mg/dl (8.5-10.1); Creatinine Clr Calc Pharmacy 29.4 ml/min; Est GFR (African American) 53.2 ml/min; Est GFR (Non-African American) 45.9 ml/min; Globulin 3.7 gm/dl (2.5-4.0); Magnesium 1.8 mg/dl (1.7-2.4); Potassium 3.4 mmol/L (3.5-5.1); Total Protein 7.4 gm/dl (6.0-8.3)
--- NOTE | 2021-11-10 12:01 | Hospitalist Progress Note ---
Date of Service November 10, 2021 Assessment & Plan (1) Acute on chronic HFrEF (heart failure with reduced ejection fraction): Plan: This is an 86-year-old male who presents with shortness of breath. 1. Shortness of breath, acute on chronic respiratory failure, uses home oxygen 2 liters, on admission requiring 4 liters. 2. History of chronic obstructive pulmonary disease, quit smoking in 2019, prior to it smoked for 44 years. 3. Also history of systolic congestive heart failure with EF of 15-20% on the echo in 07/2019. End-stage systolic heart failure, previously on hospice Not on any diuretics at home. Chest x-ray, w/pleural effusions. In the ER, nebs and steroids given. Shortness of breath could be from his chronic obstructive pulmonary disease exacerbation and also [id number] systolic congestive heart failure. CT chest ordered IMPRESSION: 1. Cardiomegaly, pulmonary edema, and moderate to large bilateral pleural effusions. 2. Consolidation within the majority of the bilateral lower lobes. This favors compressive atelectasis from the pleural effusions. A superimposed pneumonia is considered less likely but not entirely excluded. 3. Mild emphysema. 4. Stable mild mediastinal lymphadenopathy. This is nonspecific but could be due to the chronic pulmonary edema. Started on nebs around the clock and p.r.n. and p.o. prednisone and p.o. doxycycline. IV Lasix 20 mg on admission Monitor in the tele floor. Cardiology consulted, appreciate their input Continue IV diuresis with Lasix, amlodipine stopped Patient does not seem to be much improved, and per cardiology it would be appropriate to discuss goals of care again, and involve palliative medicine. Patient previously on hospice. Tried to contact patient's daughter Adilene however I was only able to leave a message. 4. History of nonsustained ventricular tachycardia, on amiodarone. 5. History of benign prostatic hyperplasia on Flomax and finasteride. 6. History of depression, on Remeron. 7. History of hypertension, on amlodipine. 8. Severe malnutrition. Dietitian consult, when stable. 9. History of chronic kidney disease stage III. Presently with creatinine of 1.2. We will follow the labs. 10. History of left bundle branch block and severe left ventricular dysfunction. As per Cardiology notes he underwent a cardiac catheterization and found to have nonischemic cardiomyopathy as his degree of left ventricular systolic dysfunction was out of proportion to the mild nonobstructive coronary artery disease. He was under home hospice in 2019, but later discontinued because he was doing okay. He has undergone implantation of biventricular pacemaker, AICD, but does not seem to significantly improve his functional status and ultimately it was removed due to pacemaker pocket infection and not reimplanted. DVT prophylaxis:heparin subcutaneous for now. DISPOSITION: Closely monitor in tele floor. Full code as per admitting physician discussion with the patient. PT, OT prior to discharge. Social service to help with discharge planning. Admission and Anticipated Discharge Date Admission Date: November 08, 2021 Subjective Patient seen in follow-up of shortness of breath, CHF exacerbation Patient is lying in bed, in NAD Denies having any edema, only complaint was shortness of breath Denies fevers or chills or significant cough (reports some mild chronic cough) No abdominal pain, nausea or vomiting Cardiology following Tried to contact patient's daughter Adilene, however I was only able to leave a message Review of Systems Review of Systems: All systems reviewed & are unremarkable except as noted in Subjective Physical Exam Physical Exam: GENERAL:Elderly, frail, cachectic male,in NAD, on suppl. O2 via NC HEENT: NC/AT. EOMI. Pupils equal, round and reactive to light. Oral mucosa moist. NECK: supple. CARDIOVASCULAR: S1 and S2 heard. Regular rate and rhythm. syst. murmur RESPIRATORY SYSTEM: Normal AP diameter. No accessory muscle use. Bilateral diminished breath sounds. No wheezing heard. ABDOMEN: Soft, bowel sounds present, nontender, no distention. NEURO:Awake and alert, able to answer simple questions appropriately. Speech fluent, moves extremities, hard of hearing EXTREMITIES: No edema, no erythema. Results & Data Results & Data ([facility]) Vital Signs (Past 12 Hours) Vital Signs Temp Pulse Pulse Resp BP BP Pulse Ox 11/10/21 11:37 36.8 C 76 22 116/61 96 11/10/21 08:00 11/10/21 07:59 36.6 C 70 20 122/68 94 11/10/21 03:59 83 11/10/21 03:07 36.5 C 82 20 154/75 H 94 11/10/21 00:28 O2 Del Method O2 Flow Rate 11/10/21 11:37 Nasal Cannula 11/10/21 08:00 Nasal Cannula 4 11/10/21 07:59 Nasal Cannula 11/10/21 03:59 11/10/21 03:07 Nasal Cannula 3.0 11/10/21 00:28 Nasal Cannula 2 Laboratory Results 11/10/21 11/10/21 Range/Units 10:41 10:41 WBC 19.55 H (4.8-10.8) K/ul RBC 3.70 L (4.63-6.08) M/uL Hgb 12.6 L (14.0-18.0) g/dl Hct 37.1 L (40.1-51.0) % MCV 100.3 H (80.0-100.0) fL MCH 34.1 H (25.0-34.0) pg MCHC 34.0 (32.0-36.0) g/dL RDW Std Deviation 46.3 (36.4-46.3) fL RDW Coeff of Ty 12.6 (11.5-14.5) % Plt Count 216 (130-400) K/uL MPV 11.6 (9.4-12.4) fL Immature Gran % (Auto) 0.6 % Neut % (Auto) 87.0 % Lymph % (Auto) 4.0 % [place] % (Auto) 8.3 % Eos % (Auto) 0.0 % Baso % (Auto) 0.1 % Neut # (Auto) 17.02 H (1.4-6.5) K/uL Lymph # (Auto) 0.79 L (1.2-3.4) K/uL [place] # (Auto) 1.62 H (0.24-0.82) K/uL Eos # (Auto) 0.00 (0-0.50) K/uL Baso # (Auto) 0.01 (0-0.2) K/uL Immature Gran # (Auto) 0.11 H (0.00-0.02) K/uL Sodium 136 (136-145) mmol/L Potassium 3.4 L (3.5-5.1) mmol/L Chloride 97 L (98-107) mmol/L Carbon Dioxide 31 (21-32) mmol/L Anion Gap 8 (3-11) BUN 44 H (6-23) mg/dl Creatinine 1.39 (0.6-1.4) mg/dl Est Cr Clr Drug Dosing 29.4 ml/min Est GFR ( Amer) 53.2 ml/min Est GFR (Non-Af Amer) 45.9 ml/min BUN/Creatinine Ratio 31.7 H (10-20) Glucose 116 H (70-99(Fasting)) mg/dl Calcium 9.1 (8.5-10.1) mg/dl Magnesium 1.8 (1.7-2.4) mg/dl Total Bilirubin 0.6 (0.2-1.0) mg/dl AST 13 (13-39) U/L ALT 9 (7-52) U/L Alkaline Phosphatase 66 (34-104) U/L Total Protein 7.4 (6.0-8.3) gm/dl Albumin 3.7 (3.4-5.0) gm/dl Globulin 3.7 (2.5-4.0) gm/dl Albumin/Globulin Ratio 1.0 (0.9-2) Medications Administered Current Inpatient Medications Acetaminophen (Acetaminophen 325 Mg Tab) 650 mg PO Q4H PRN PRN Reason: Pain or Fever Stop: 12/08/21 06:22 Amiodarone HCl (Amiodarone 200 Mg Tab) 100 mg PO QAM [facility] Stop: 12/08/21 08:59 Last Admin: 11/10/21 08:23 Dose: 100 mg Aspirin (Aspirin 81 Mg Ectab) 81 mg PO QAM [facility] Stop: 12/08/21 08:59 Last Admin: 11/10/21 08:23 Dose: 81 mg Doxycycline Hyclate (Doxycycline Hyclate 100 Mg Cap) 100 mg PO BID [facility] Stop: 11/15/21 08:59 Last Admin: 11/10/21 08:23 Dose: 100 mg Finasteride (Finasteride 5 Mg Tab) 5 mg PO HS [facility] Stop: 12/08/21 20:59 Last Admin: 11/09/21 21:44 Dose: 5 mg Furosemide (Furosemide Inj 20 Mg/2 Ml Vial) 20 mg IV DAILY [facility] Stop: 12/10/21 08:59 Last Admin: 11/10/21 08:25 Dose: 20 mg Heparin Sodium (Porcine) (Heparin Sod 5,000 Unit/0.5 Ml Vial) 5,000 units SQ Q8 [facility] Stop: 12/08/21 06:59 Last Admin: 11/10/21 06:34 Dose: 5,000 units Levalbuterol HCl (Levalbuterol Hcl 1.25 Mg/3 Ml Neb) 1.25 mg NEB Q2H PRN; Protocol PRN Reason: Shortness Of Breath Or Wheezing Stop: 12/08/21 06:22 Mirtazapine (Mirtazapine Soltab 15 Mg) 45 mg PO HS CANDICE Stop: 12/08/21 20:59 Last Admin: 11/09/21 21:43 Dose: 45 mg Nitroglycerin (Nitroglycerin Sl 0.4 Mg/Tab Tab) 0.4 mg SL UD PRN PRN Reason: Chest Pain Stop: 12/08/21 06:22 Pantoprazole Sodium (Pantoprazole 40 Mg Tab) 40 mg PO QAM [facility] Stop: 12/08/21 17:14 Last Admin: 11/10/21 08:23 Dose: 40 mg Polyethylene Glycol (Polyethylene (Miralax) 17 Gm Pack) 17 gm PO DAILY PRN PRN Reason: Constipation Stop: 12/08/21 06:22 Potassium Chloride (Potassium Chloride Pwd 20 Meq Pack) 20 meq PO BID CANDICE Stop: 12/10/21 11:59 Prednisone (Prednisone 20 Mg Tab) 40 mg PO DAILY C[facility]ICE Stop: 12/08/21 08:59 Last Admin: 11/10/21 08:25 Dose: 40 mg Tamsulosin HCl (Tamsulosin Hcl 0.4 Mg Cap) 0.4 mg PO DAILY CANDICE Stop: 12/08/21 08:59 Last Admin: 11/10/21 08:23 Dose: 0.4 mg
[2021-11-10] MEDS: POTASSIUM CHLORIDE PWD 20 MEQ PACK PO SCH ×2 (12:38→20:46)
[2021-11-10] MEDS: MIRTAZAPINE SOLTAB 15 MG PO SCH (20:46)
[2021-11-10] MEDS: FINASTERIDE 5 MG TAB PO SCH (20:46)
[2021-11-11] MEDS: HEPARIN SOD 5,000 UNIT/0.5 ML VIAL SQ SCH ×3 (04:36→20:42)
[2021-11-11 06:49] LABS: Hematocrit (blood only) 34.1 % (40.1-51.0); Hemoglobin 11.5 g/dl (14.0-18.0); Mean Corpuscular Hemoglobin 33.9 pg (25.0-34.0); Mean Corpuscular Hgb Conc 33.7 g/dL (32.0-36.0); Mean Corpuscular Volume 100.6 fL (80.0-100.0); Mean Platelet Volume 11.1 fL (9.4-12.4); Platelet Count 189 K/uL (130-400); RDW Coefficient of Variation 12.5 % (11.5-14.5); RDW Standard Deviation 45.7 fL (36.4-46.3); Red Blood Count 3.39 M/uL (4.63-6.08)
[2021-11-11 07:22] LABS: BUN Creatinine Ratio 32.8 (10-20); Calcium 8.9 mg/dl (8.5-10.1); Est GFR (African American) 55.6 ml/min; Magnesium 1.9 mg/dl (1.7-2.4); Phosphorus 3.2 mg/dl (2.5-4.9); Potassium 3.8 mmol/L (3.5-5.1)
[2021-11-11] MEDS: POTASSIUM CHLORIDE PWD 20 MEQ PACK PO SCH ×2 (08:42→20:42)
[2021-11-11] MEDS: DOXYCYCLINE HYCLATE 100 MG CAP PO SCH ×2 (08:42→20:40)
[2021-11-11] MEDS: ASPIRIN 81 MG ECTAB PO SCH (08:43)
[2021-11-11] MEDS: PANTOprazole 40 MG TAB PO SCH (08:43)
[2021-11-11] MEDS: FUROSEMIDE INJ 20 MG/2 ML VIAL IV SCH (08:44)
[2021-11-11] MEDS: AMIODARONE 200 MG TAB PO SCH (08:45)
[2021-11-11] MEDS ORDERED: FUROSEMIDE 40 MG/4 ML VIAL IV ONE (10:42)
--- NOTE | 2021-11-11 10:47 | Cardiology Progress Note ---
Date of Service November 11, 2021 Assessment & Plan (1) Acute exacerbation of chronic obstructive pulmonary disease: (2) Hypoxemia: (3) CHF (congestive heart failure): (4) Chronic systolic CHF (congestive heart failure), NYHA class 4: (5) Acute on chronic HFrEF (heart failure with reduced ejection fraction): (6) Hyponatremia: (7) Orthostatic hypotension: (8) Nonischemic cardiomyopathy: (9) Pleural effusion: (10) Severe malnutrition: (11) Chronic systolic heart failure: Plan Complex, cachectic appearing, 86 year old male with end stage systolic congestive heart failure, nonischemic cardiomyopathy initially diagnosed in 2008, with progressive decline in LV function, NYHA Class IV congestive heart failure. Prior BiV/ICD extracted due to infection. EF 15%. Patient admitted with main complaint of acute on chronic shortness of breath improved following titration of supplemental oxygen therapy and with IV furosemide. Presentation appears multifactorial in etiology - acute on chronic respiratory failure, acute decompensated systolic congestive heart failure, with bilateral pleural effusions. Appropriate medical therapy limited by bradycardia and symptomatic hypotension. RECOMMENDATIONS/PLAN: Continue IV furosemide, additional 40 mg today. Daily laboratory, maintain electrolytes. Continue low dose amiodarone and aspirin Limited prognosis. Consider Palliative Care, resumption of Hospice Admission and Anticipated Discharge Date Admission Date: November 08, 2021 Supervising Physician Co-Signing Physician Notes Patient seen and personally examined. Chronically frail male with underlying ischemic cardiomyopathy and decompensated congestive heart failure limited improvement since admission. We will continue diuretics and treatment of underlying emphysematous lung disease as well As above consider palliative care Subjective Patient seen and examined. Chart, medications, and telemetry reviewed. Feels better following additional IV furosemide, less dyspneic, improved cough. Ongoing wheeze. No chest pain. No palpitations. No abdominal pain. Continuous telemetry monitoring reveals sinus with atrial and ventricular ectopy, rates typically in the 60's to 70's predominately. No significant arrhythmias observed. Review of Systems Review of Systems: Complete Review of Systems is otherwise as stated above, negative, or noncontributory. Physical Exam Physical Exam: General: Cachectic appearing. Alert and oriented to person and place. NAD. Hard of hearing. HENT: Normocephalic. Atraumatic. Eyes: PER. Conjunctiva pink, sclera clear. neck: No JVD. Heart: RRR, 70 bpm. Soft apical systolic murmur. + Gallop. Displaced PMI. No rub. Lungs: Decreased. Diminished. Coarse. Faint wheeze. Abdomen: +BS. Soft. Nontender. No masses or organomegaly. Extremities: No clubbing, cyanosis, or significant edema. Limited neurological examination is without focal deficits. Pulses: radial=2/4, posterior tibial=0/4. Results & Data ([facility]) Vital Signs (Past 12 Hours) Vital Signs Temp Pulse Pulse Pulse Resp BP BP 11/11/21 08:00 65 11/11/21 08:45 68 11/11/21 07:53 36.7 C 55 L 18 115/66 11/11/21 03:54 36.4 C L 66 16 136/69 11/11/21 00:29 11/10/21 23:28 36.5 C 72 14 114/61 11/10/21 23:24 71 Pulse Ox O2 Del Method O2 Flow Rate 11/11/21 08:00 11/11/21 08:45 11/11/21 07:53 98 Nasal Cannula 4 11/11/21 03:54 100 Nasal Cannula 4.0 11/11/21 00:29 Nasal Cannula 4 11/10/21 23:28 98 Nasal Cannula 4.0 11/10/21 23:24 (1) CHF (congestive heart failure) Heart failure chronicity: acute on chronic Heart failure type: unspecified Qualified Code(s): I50.9 - Heart failure, unspecified
--- NOTE | 2021-11-11 13:18 | Hospitalist Progress Note ---
Date of Service November 11, 2021 Assessment & Plan (1) Acute on chronic HFrEF (heart failure with reduced ejection fraction): Plan: This is an 86-year-old male who presents with shortness of breath. 1. Shortness of breath, acute on chronic respiratory failure, uses home oxygen 2 liters, on admission requiring 4 liters. 2. History of chronic obstructive pulmonary disease, quit smoking in 2019, prior to it smoked for 44 years. 3. Also history of systolic congestive heart failure with EF of 15-20% on the echo in 07/2019. End-stage systolic heart failure, previously on hospice Acute on chronic systolic CHF Not on any diuretics at home. Chest x-ray, w/pleural effusions. In the ER, nebs and steroids given. Shortness of breath could be from his chronic obstructive pulmonary disease exacerbation and also [id number] systolic congestive heart failure. CT chest ordered IMPRESSION: 1. Cardiomegaly, pulmonary edema, and moderate to large bilateral pleural effusions. 2. Consolidation within the majority of the bilateral lower lobes. This favors compressive atelectasis from the pleural effusions. A superimposed pneumonia is considered less likely but not entirely excluded. 3. Mild emphysema. 4. Stable mild mediastinal lymphadenopathy. This is nonspecific but could be due to the chronic pulmonary edema. Started on nebs around the clock and p.r.n. and p.o. prednisone and p.o. doxycy luciano. IV Lasix 20 mg on admission Monitor in the tele floor. Cardiology consulted, appreciate their input Continue IV diuresis with Lasix, amlodipine stopped Patient does not seem to be much improved, and per cardiology it would be appropriate to discuss goals of care again, and involve palliative medicine. Patient previously on hospice. Tried to contact patient's daughter Adilene however I was only able to leave a message. Palliative medicine consult placed 4. History of nonsustained ventricular tachycardia, on amiodarone. 5. History of benign prostatic hyperplasia on Flomax and finasteride. 6. History of depression, on Remeron. 7. History of hypertension, on amlodipine. 8. Severe malnutrition. Dietitian consult, when stable. 9. History of chronic kidney disease stage III. Presently with creatinine of 1.2. We will follow the labs. 10. History of left bundle branch block and severe left ventricular dysfunction. As per Cardiology notes he underwent a cardiac catheterization and found to have nonischemic cardiomyopathy as his degree of left ventricular systolic dysfunction was out of proportion to the mild nonobstructive coronary artery disease. He was under home hospice in 2019, but later discontinued because he was doing okay. He has undergone implantation of biventricular pacemaker, AICD, but does not seem to significantly improve his functional status and ultimately it was removed due to pacemaker pocket infection and not reimplanted. DVT prophylaxis:heparin subcutaneous for now. DISPOSITION: Closely monitor in tele floor. Full code as per admitting physician discussion with the patient. PT, OT prior to discharge. Social service to help with discharge planning. Admission and Anticipated Discharge Date Admission Date: November 08, 2021 Subjective Patient seen in follow-up of shortness of breath, CHF exacerbation Patient is lying in bed, in NAD Denies having any edema, only complaint was shortness of breath Denies fevers or chills or significant cough (reports some mild chronic cough) No abdominal pain, nausea or vomiting Cardiology following Tried to contact patient's daughter Adilene, however I was only able to leave a message Review of Systems Review of Systems: All systems reviewed & are unremarkable except as noted in Subjective Physical Exam Physical Exam: GENERAL:Elderly, frail, cachectic male,in NAD, on suppl. O2 via NC HEENT: NC/AT. EOMI. Pupils equal, round and reactive to light. Oral mucosa moist. NECK: supple. CARDIOVASCULAR: S1 and S2 heard. Regular rate and rhythm. syst. murmur RESPIRATORY SYSTEM: Normal AP diameter. No accessory muscle use. Bilateral diminished breath sounds. No wheezing heard. ABDOMEN: Soft, bowel sounds present, nontender, no distention. NEURO:Awake and alert, able to answer simple questions appropriately. Speech fluent, moves extremities, hard of hearing EXTREMITIES: No edema, no erythema. Results & Data Results & Data ([facility]) Vital Signs (Past 12 Hours) Vital Signs Temp Pulse Pulse Pulse Resp BP Pulse Ox 11/11/21 11:41 36.4 C L 75 18 111/64 98 11/11/21 11:17 11/11/21 08:00 65 11/11/21 08:45 68 11/11/21 07:53 36.7 C 55 L 18 115/66 98 11/11/21 03:54 36.4 C L 66 16 136/69 100 O2 Del Method O2 Flow Rate 11/11/21 11:41 Nasal Cannula 3 07/21/22 11:17 Nasal Cannula 3 11/11/21 08:00 11/11/21 08:45 11/11/21 07:53 Nasal Cannula 4 11/11/21 03:54 Nasal Cannula 4.0 Laboratory Results 11/11/21 11/11/21 Range/Units 06:29 06:29 WBC 12.50 H (4.8-10.8) K/ul RBC 3.39 L (4.63-6.08) M/uL Hgb 11.5 L (14.0-18.0) g/dl Hct 34.1 L (40.1-51.0) % MCV 100.6 H (80.0-100.0) fL MCH 33.9 (25.0-34.0) pg MCHC 33.7 (32.0-36.0) g/dL RDW Std Deviation 45.7 (36.4-46.3) fL RDW Coeff of Ty 12.5 (11.5-14.5) % Plt Count 189 (130-400) K/uL MPV 11.1 (9.4-12.4) fL Sodium 136 (136-145) mmol/L Potassium 3.8 (3.5-5.1) mmol/L Chloride 96 L (98-107) mmol/L Carbon Dioxide 36 H (21-32) mmol/L Anion Gap 4 (3-11) BUN 44 H (6-23) mg/dl Creatinine 1.34 (0.6-1.4) mg/dl Est Cr Clr Drug Dosing 30.0 ml/min Est GFR ( Amer) 55.6 ml/min Est GFR (Non-Af Amer) 48.0 ml/min BUN/Creatinine Ratio 32.8 H (10-20) Glucose 110 H (70-99(Fasting)) mg/dl Calcium 8.9 (8.5-10.1) mg/dl Phosphorus 3.2 (2.5-4.9) mg/dl Magnesium 1.9 (1.7-2.4) mg/dl Medications Administered Current Inpatient Medications Acetaminophen (Acetaminophen 325 Mg Tab) 650 mg PO Q4H PRN PRN Reason: Pain or Fever Stop: 12/08/21 06:22 Amiodarone HCl (Amiodarone 200 Mg Tab) 100 mg PO QAM [facility] Stop: 12/08/21 08:59 Last Admin: 11/11/21 08:45 Dose: 100 mg Aspirin (Aspirin 81 Mg Ectab) 81 mg PO QAM [facility] Stop: 12/08/21 08:59 Last Admin: 11/11/21 08:43 Dose: 81 mg Doxycycline Hyclate (Doxycycline Hyclate 100 Mg Cap) 100 mg PO BID [facility] Stop: 11/15/21 08:59 Last Admin: 11/11/21 08:42 Dose: 100 mg Finasteride (Finasteride 5 Mg Tab) 5 mg PO HS [facility] Stop: 12/08/21 20:59 Last Admin: 11/10/21 20:46 Dose: 5 mg Furosemide (Furosemide Inj 20 Mg/2 Ml Vial) 20 mg IV DAILY [facility] Stop: 12/10/21 08:59 Last Admin: 11/11/21 08:44 Dose: 20 mg Heparin Sodium (Porcine) (Heparin Sod 5,000 Unit/0.5 Ml Vial) 5,000 units SQ Q8 [facility] Stop: 12/08/21 06:59 Last Admin: 11/11/21 04:36 Dose: 5,000 units Levalbuterol HCl (Levalbuterol Hcl 1.25 Mg/3 Ml Neb) 1.25 mg NEB Q2H PRN; Protocol PRN Reason: Shortness Of Breath Or Wheezing Stop: 12/08/21 06:22 Mirtazapine (Mirtazapine Soltab 15 Mg) 45 mg PO [facility] Stop: 12/08/21 20:59 Last Admin: 11/10/21 20:46 Dose: 45 mg Nitroglycerin (Nitroglycerin Sl 0.4 Mg/Tab Tab) 0.4 mg SL UD PRN PRN Reason: Chest Pain Stop: 12/08/21 06:22 Pantoprazole Sodium (Pantoprazole 40 Mg Tab) 40 mg PO QAM [facility] Stop: 12/08/21 17:14 Last Admin: 11/11/21 08:43 Dose: 40 mg Polyethylene Glycol (Polyethylene (Miralax) 17 Gm Pack) 17 gm PO DAILY PRN PRN Reason: Constipation Stop: 12/08/21 06:22 Potassium Chloride (Potassium Chloride Pwd 20 Meq Pack) 20 meq PO BID [facility] Stop: 12/10/21 11:59 Last Admin: 11/11/21 08:42 Dose: 20 meq Prednisone (Prednisone 20 Mg Tab) 40 mg PO DAILY [facility] Stop: 12/08/21 08:59 Last Admin: 11/10/21 08:25 Dose: 40 mg Tamsulosin HCl (Tamsulosin Hcl 0.4 Mg Cap) 0.4 mg PO DAILY [facility] Stop: 12/08/21 08:59 Last Admin: 11/10/21 08:23 Dose: 0.4 mg
[2021-11-11] MEDS: MIRTAZAPINE SOLTAB 15 MG PO SCH (20:41)
[2021-11-11] MEDS: FINASTERIDE 5 MG TAB PO SCH (21:23)
[2021-11-12] MEDS: HEPARIN SOD 5,000 UNIT/0.5 ML VIAL SQ SCH ×3 (05:23→22:12)
[2021-11-12 08:23] LABS: BUN Creatinine Ratio 33.1 (10-20); Calcium 9.1 mg/dl (8.5-10.1); Creatinine Clr Calc Pharmacy 29.7 ml/min; Est GFR (African American) 49.3 ml/min; Est GFR (Non-African American) 42.5 ml/min; Magnesium 1.9 mg/dl (1.7-2.4); Phosphorus 3.8 mg/dl (2.5-4.9); Potassium 3.8 mmol/L (3.5-5.1)
[2021-11-12] MEDS: POTASSIUM CHLORIDE PWD 20 MEQ PACK PO SCH ×2 (09:04→20:15)
[2021-11-12] MEDS: AMIODARONE 200 MG TAB PO SCH (09:04)
[2021-11-12] MEDS: ASPIRIN 81 MG ECTAB PO SCH (09:04)
[2021-11-12] MEDS: PANTOprazole 40 MG TAB PO SCH (09:05)
[2021-11-12] MEDS: DOXYCYCLINE HYCLATE 100 MG CAP PO SCH ×2 (09:05→20:16)
[2021-11-12] MEDS: FUROSEMIDE INJ 20 MG/2 ML VIAL IV SCH (09:05)
--- NOTE | 2021-11-12 09:26 | Cardiology Progress Note ---
Date of Service November 12, 2021 Assessment & Plan (1) Acute exacerbation of chronic obstructive pulmonary disease: (2) Hypoxemia: (3) CHF (congestive heart failure): (4) Chronic systolic CHF (congestive heart failure), NYHA class 4: (5) Acute on chronic HFrEF (heart failure with reduced ejection fraction): (6) Hyponatremia: (7) Orthostatic hypotension: (8) Nonischemic cardiomyopathy: (9) Pleural effusion: (10) Severe malnutrition: (11) Chronic systolic heart failure: Plan Complex, cachectic 86 year old male with end stage systolic congestive heart failure, nonischemic cardiomyopathy initially diagnosed in 2008, with progressive decline in LV function, EF 15%, NYHA Class IV CHF. Prior BiV/ICD extracted due to infection. Patient admitted with main complaint of acute on chronic shortness of breath improved following titration of supplemental oxygen therapy and with IV furosemide. Presentation appears multifactorial in etiology - acute on chronic respiratory failure, acute decompensated systolic congestive heart failure, with bilateral pleural effusions. RECOMMENDATIONS/PLAN: Continue IV furosemide today, likely transitioning to oral in the AM Trial Isordil then hydralazine if blood pressure permits. Continue low dose amiodarone and aspirin Consider Palliative Care, resumption of Hospice Admission and Anticipated Discharge Date Admission Date: November 08, 2021 Supervising Physician Co-Signing Physician Notes Patient seen and personally examined. Slightly less breathless today but still poorly tolerant of minimal activity. Limited options for therapy as described above Plan and treatment as outlined Subjective Patient seen and examined. Chart, medications, and telemetry reviewed. Feels the same as yesterday. + Cough productive of yellow sputum. + chest congestion. Dyspnea unchanged. No chest pain. No palpitations. No abdominal pain. I/O's negative the last couple of days. BP elevated this AM Continuous telemetry monitoring reveals sinus in the 60's with atrial and ventricular ectopy, rates primarily in the 60's. No significant arrhythmias observed. Review of Systems Review of Systems: Complete Review of Systems is otherwise as stated above, negative, or noncontributory. Physical Exam Physical Exam: General: Cachectic appearing. Alert and oriented to person and place. NAD. Hard of hearing. HENT: Normocephalic. Atraumatic. Eyes: PER. Conjunctiva pink, sclera clear. neck: No JVD. Heart: RRR, 70 bpm. Soft apical systolic murmur. + Gallop. Displaced PMI. No rub. Lungs: Decreased. Diminished. + Rhonchi on the right. No wheeze. Abdomen: +BS. Soft. Nontender. No masses or organomegaly. Extremities: No clubbing, cyanosis, or significant edema. Limited neurological examination is without focal deficits. Pulses: radial=2/4, posterior tibial=0/4. Results & Data ([facility]) Vital Signs (Past 12 Hours) Vital Signs Temp Pulse Pulse Pulse Resp BP BP 11/12/21 07:56 36.9 C 70 14 160/68 H 11/12/21 07:22 61 11/12/21 04:06 36.3 C L 60 16 129/67 11/11/21 23:27 36.4 C L 68 18 127/65 11/11/21 23:49 68 Pulse Ox O2 Del Method O2 Flow Rate 11/12/21 07:56 94 Nasal Cannula 2 11/12/21 07:22 11/12/21 04:06 99 Room Air 11/11/21 23:27 97 Nasal Cannula 2.0 11/11/21 23:49 Laboratory Results Laboratory Results - last 24 hr 11/12/21 07:19 Sodium 140 Potassium 3.8 Chloride 96 L Carbon Dioxide 40 H Anion Gap 4 BUN 49 H Creatinine 1.48 H Est Cr Clr Drug Dosing 29.7 Est GFR ( Amer) 49.3 Est GFR (Non-Af Amer) 42.5 BUN/Creatinine Ratio 33.1 H Glucose 97 Calcium 9.1 Phosphorus 3.8 Magnesium 1.9 (1) CHF (congestive heart failure) Heart failure chronicity: acute on chronic Heart failure type: unspecified Qualified Code(s): I50.9 - Heart failure, unspecified
[2021-11-12] MEDS: ISOSORBIDE DINITRATE 5 MG TAB PO SCH ×2 (09:59→20:16)
--- NOTE | 2021-11-12 10:35 | Hospitalist Progress Note ---
Date of Service November 12, 2021 Assessment & Plan (1) Acute on chronic HFrEF (heart failure with reduced ejection fraction): Plan: This is an 86-year-old male who presents with shortness of breath. 1. Shortness of breath, acute on chronic respiratory failure, uses home oxygen 2 liters, on admission requiring 4 liters. 2. History of chronic obstructive pulmonary disease, quit smoking in 2019, prior to it smoked for 44 years. 3. Also history of systolic congestive heart failure with EF of 15-20% on the echo in 07/2019. End-stage systolic heart failure, previously on hospice Acute on chronic systolic CHF Not on any diuretics at home. Chest x-ray, w/pleural effusions. In the ER, nebs and steroids given. Shortness of breath could be from his chronic obstructive pulmonary disease exacerbation and also [id number] systolic congestive heart failure. CT chest ordered IMPRESSION: 1. Cardiomegaly, pulmonary edema, and moderate to large bilateral pleural effusions. 2. Consolidation within the majority of the bilateral lower lobes. This favors compressive atelectasis from the pleural effusions. A superimposed pneumonia is considered less likely but not entirely excluded. 3. Mild emphysema. 4. Stable mild mediastinal lymphadenopathy. This is nonspecific but could be due to the chronic pulmonary edema. Started on nebs around the clock and p.r.n. and p.o. prednisone and p.o. doxycycline. IV Lasix 20 mg on admission Monitor in the tele floor. Cardiology consulted, appreciate their input Continue IV diuresis with Lasix, amlodipine stopped Trial Isordil then hydralazine if blood pressure permits. Continue low dose amiodarone and aspirin Patient does not seem to be much improved, and per cardiology it would be appropriate to discuss goals of care again, and involve palliative medicine. Patient previously on hospice. Tried to contact patient's daughter Adilene however I was only able to leave a message. Palliative medicine consulted - appreciate their input, pt remains Full code 4. History of nonsustained ventricular tachycardia, on amiodarone. 5. History of benign prostatic hyperplasia on Flomax and finasteride. 6. History of depression, on Remeron. 7. History of hypertension, on amlodipine. 8. Severe malnutrition. Dietitian consult, when stable. 9. History of chronic kidney disease stage III. Presently with creatinine of 1.2. We will follow the labs. 10. History of left bundle branch block and severe left ventricular dysfunction. As per Cardiology notes he underwent a cardiac catheterization and found to have nonischemic cardiomyopathy as his degree of left ventricular systolic dysfunction was out of proportion to the mild nonobstructive coronary artery disease. He was under home hospice in 2019, but later discontinued because he was doing okay. He has undergone implantation of biventricular pacemaker, AICD, but does not seem to significantly improve his functional status and ultimately it was removed due to pacemaker pocket infection and not reimplanted. DVT prophylaxis:heparin subcutaneous for now. DISPOSITION: Closely monitor in tele floor. Full code as per admitting physician discussion with the patient. PT, OT prior to discharge. Social service to help with discharge planning. Admission and Anticipated Discharge Date Admission Date: November 08, 2021 Subjective Patient seen in follow-up of shortness of breath, CHF exacerbation Patient is lying in bed, in NAD Denies having any edema, only complaint was shortness of breath Denies fevers or chills or significant cough (reports some mild chronic cough) No abdominal pain, nausea or vomiting Cardiology following Tried to contact patient's daughter Adilene, however I was only able to leave a message Palliative medicine consulted Review of Systems Review of Systems: All systems reviewed & are unremarkable except as noted in Subjective Physical Exam Physical Exam: GENERAL:Elderly, frail, cachectic male,in NAD, on suppl. O2 via NC HEENT: NC/AT. EOMI. Pupils equal, round and reactive to light. Oral mucosa moist. NECK: supple. CARDIOVASCULAR: S1 and S2 heard. Regular rate and rhythm. syst. murmur RESPIRATORY SYSTEM: Normal AP diameter. No accessory muscle use. Bilateral diminished breath sounds. No wheezing heard. ABDOMEN: Soft, bowel sounds present, nontender, no distention. NEURO:Awake and alert, able to answer simple questions appropriately. Speech fluent, moves extremities, hard of hearing EXTREMITIES: No edema, no erythema. Results & Data Results & Data ([facility]) Vital Signs (Past 12 Hours) Vital Signs Temp Pulse Pulse Pulse Resp BP BP 11/12/21 08:00 11/12/21 07:56 36.9 C 70 14 160/68 H 11/12/21 07:22 61 11/12/21 04:06 36.3 C L 60 16 129/67 11/11/21 23:27 36.4 C L 68 18 127/65 11/11/21 23:49 68 Pulse Ox O2 Del Method O2 Flow Rate 11/12/21 08:00 Nasal Cannula 2 11/12/21 07:56 94 Nasal Cannula 2 11/12/21 07:22 11/12/21 04:06 99 Room Air 11/11/21 23:27 97 Nasal Cannula 2.0 11/11/21 23:49 Laboratory Results 11/12/21 Range/Units 07:19 Sodium 140 (136-145) mmol/L Potassium 3.8 (3.5-5.1) mmol/L Chloride 96 L (98-107) mmol/L Carbon Dioxide 40 H (21-32) mmol/L Anion Gap 4 (3-11) BUN 49 H (6-23) mg/dl Creatinine 1.48 H (0.6-1.4) mg/dl Est Cr Clr Drug Dosing 29.7 ml/min Est GFR ( Amer) 49.3 ml/min Est GFR (Non-Af Amer) 42.5 ml/min BUN/Creatinine Ratio 33.1 H (10-20) Glucose 97 (70-99(Fasting)) mg/dl Calcium 9.1 (8.5-10.1) mg/dl Phosphorus 3.8 (2.5-4.9) mg/dl Magnesium 1.9 (1.7-2.4) mg/dl Medications Administered Current Inpatient Medications Acetaminophen (Acetaminophen 325 Mg Tab) 650 mg PO Q4H PRN PRN Reason: Pain or Fever Stop: 12/08/21 06:22 Amiodarone HCl (Amiodarone 200 Mg Tab) 100 mg PO QAM [facility] Stop: 12/08/21 08:59 Last Admin: 11/12/21 09:04 Dose: 100 mg Aspirin (Aspirin 81 Mg Ectab) 81 mg PO QAM [facility] Stop: 12/08/21 08:59 Last Admin: 11/12/21 09:04 Dose: 81 mg Doxycycline Hyclate (Doxycycline Hyclate 100 Mg Cap) 100 mg PO BID [facility] Stop: 11/15/21 08:59 Last Admin: 11/12/21 09:05 Dose: 100 mg Finasteride (Finasteride 5 Mg Tab) 5 mg PO HS [facility] Stop: 12/08/21 20:59 Last Admin: 11/11/21 21:23 Dose: 5 mg Furosemide (Furosemide Inj 20 Mg/2 Ml Vial) 20 mg IV DAILY [facility] Stop: 12/10/21 08:59 Last Admin: 11/12/21 09:05 Dose: 20 mg Heparin Sodium (Porcine) (Heparin Sod 5,000 Unit/0.5 Ml Vial) 5,000 units SQ Q8 [facility] Stop: 12/08/21 06:59 Last Admin: 11/12/21 05:23 Dose: 5,000 units Isosorbide Dinitrate (Isosorbide Dinitrate 5 Mg Tab) 5 mg PO BID [facility] Stop: 12/12/21 09:29 Last Admin: 11/12/21 09:59 Dose: 5 mg Levalbuterol HCl (Levalbuterol Hcl 1.25 Mg/3 Ml Neb) 1.25 mg NEB Q2H PRN; Protocol PRN Reason: Shortness Of Breath Or Wheezing Stop: 12/08/21 06:22 Mirtazapine (Mirtazapine Soltab 15 Mg) 45 mg PO HS [facility] Stop: 12/08/21 20:59 Last Admin: 11/11/21 20:41 Dose: 45 mg Nitroglycerin (Nitroglycerin Sl 0.4 Mg/Tab Tab) 0.4 mg SL UD PRN PRN Reason: Chest Pain Stop: 12/08/21 06:22 Pantoprazole Sodium (Pantoprazole 40 Mg Tab) 40 mg PO QAM [facility] Stop: 12/08/21 17:14 Last Admin: 11/12/21 09:05 Dose: 40 mg Polyethylene Glycol (Polyethylene (Miralax) 17 Gm Pack) 17 gm PO DAILY PRN PRN Reason: Constipation Stop: 12/08/21 06:22 Potassium Chloride (Potassium Chloride Pwd 20 Meq Pack) 20 meq PO BID [facility] Stop: 12/10/21 11:59 Last Admin: 11/12/21 09:04 Dose: 20 meq Prednisone (Prednisone 20 Mg Tab) 40 mg PO DAILY [facility] Stop: 12/08/21 08:59 Last Admin: 11/10/21 08:25 Dose: 40 mg Tamsulosin HCl (Tamsulosin Hcl 0.4 Mg Cap) 0.4 mg PO DAILY [facility] Stop: 12/08/21 08:59 Last Admin: 11/10/21 08:23 Dose: 0.4 mg
--- NOTE | 2021-11-12 13:49 | Palliative Care Consultation ---
Date of Consultation November 12, 2021 Assessment & Plan (1) Dyspnea: Improving with diuresis. He had been using O2 at home prn for dyspnea. (2) Weakness: Feels weak and light headed sitting in chair. He lives with his elderly who has hip problems and uses a walker. They have support from their children who live nearby and meal on wheels. (3) Palliative care encounter: I talked with Mr. Victoria about his understanding of his illness. We reviewed his cardiomyopathy and decreased EF. He also had the opportunity to hear this from Dr. Ba as well. He seems surprised that his heart is not pumping well. We talked about his previous experience with hospice. He told me that when he was discharged from the hospital he was very weak but that he got stronger and didn't feel that he needed their help anymore. I asked him how his condition now compares to then. He feels that he is weaker now than he was then. We talked about his heart problems not being a fixable condition and that we could continue to adjust meds and treat fluid balance as needed but that ultimately he is likely to from his heart disease. I asked him where he would want to be when that happened. He told me that he would not want to be at home because he is concerned that it would be too stressful for his . He would want to be able to return to the hospital for treatment if needed. He did tell me that he hopes that his dying time would be peaceful. We reviewed his code status which is currently full code. I asked him what his expectation would be from a full code. He told me that he wanted to get back to "at least as good as I am now". We discussed statistical likelihood of him returning to prior level of function given his heart disease and current debility would be virtually nil. He told me that he was not ready to "give up" and wanted to at least give it a try. We talked about who would make decisions for him if he were unable to do so and he told me that his daughter Adilene Victoria, along with his , Pushpa, would be his surrogate decision makers. He worries that Pushpa would have difficulty making difficult decisions for his care but feels that Adilene would know what to do on his behalf. He noted that he has never really talked to her about his wishes. I encouraged him to discuss this with Adilene at some point. History of Present Illness Reason for Consultation: goals of care Requesting Physician: Dr. Caceres Attending Physician: Mukul Caceres MD History of Present Illness 86 yo gentleman with nonischemic cardiomyopathy and EF of 15% who had been on hospice in 2019 but was discharged for stability. He presented with increased shortness of breath and hypoxic respiratory failure. He had moderate to large bilateral pleural effusions as well as bilateral consolidation. He has been receiving IV lasix and has had daily negative fluid balance. He has also had a slight bump in his creatinine to 1.48 compared to 1.39 on admission. He did have an AICD in the past but it was removed due to infection. He appears cachectic and reports poor appetite but albumin is within normal range and weight has been stable over the last two years. Although he had been on hospice in the past, he called 911 from home and opted for full code when this was addressed on admission. Allergies Allergy/AdvReac Type Severity Reaction Status Date / Time No Known Allergies Allergy Unknown Verified 11/08/21 02:57 Home Medications Medication Instructions Recorded Confirmed Type aspirin 81 mg tablet,delayed 81 mg PO QAM 10/27/18 11/08/21 History release mirtazapine 45 mg tablet 45 mg PO HS 10/27/18 11/08/21 History finasteride 5 mg tablet 5 mg PO HS 07/31/19 11/08/21 History amiodarone 200 mg tablet 100 mg PO QAM #0 tabs 08/11/19 11/08/21 Rx amlodipine 2.5 mg tablet 2.5 mg PO DAILY 06/23/21 11/08/21 History tamsulosin 0.4 mg capsule 0.4 mg PO DAILY 06/23/21 11/08/21 History acetaminophen 325 mg tablet 650 mg PO Q4H PRN fever or pain 06/25/21 11/08/21 Rx #90 tabs Patient History Medical History (Updated 11/12/21 @ 13:58 by Ella Harrison MD) 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 Underwent procedure without any complications; monitored overnight and discharged home. 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 11/01/18 = widely patent coronary arteries History of cardiac cath SEPTEMBER 2018 AT [facility] NO STENTS History of cataract surgery BILATERAL History of colonoscopy History of tonsillectomy and adenoidectomy History of total left hip replacement Family History Mother Hypertension Brother FHx: myocardial infarction HALF-BROTHER Sister Kidney transplant status Social History Smoking Status: Former smoker Tobacco Type: Cigarettes Years Smoked: 50; Number of Years Since Quit: 3; Second Hand Exposure: No; Hx Alcohol Use: No Hx Substance Use: No Preferred Language: [place] Communication Ability: Effective Fashion Artist Required: No Beliefs That Will Affect Care: None marital status: Current Living Situation: Spouse Current Living Situation Comment: [facility] current occupational status: retired How many Children do You have: 3 Other Information That Helps Us Care for You: No Feels Safe at Home: Yes Safety Concerns: Feels Safe At This Time Assistive Devices: Hearing Aid - Bilateral and Oxygen - Continuous Review of Systems Review of Systems: ESAS Pain 0/3 Dyspnea 1/3 Fatigue 2/3 Nausea 0/3 Anorexia 2/3 PPS 50% Physical Exam Constitutional: + cachectic and + frail appearing ENMT: Mouth: oral mucous membranes not dry Respiratory: normal respiratory effort; no labored breathing and does not use accessory muscles Cardiovascular: Rate/Rhythm: + irregularly irregular Extremities: no edema Musculoskeletal: Extremities: + muscle atrophy Neurologic: Speech / Cognition: normal cognition Psychiatric: A+Ox3, euthymic affect Results & Data ([facility]) Vital Signs (Past 12 Hours) Vital Signs Temp Pulse Pulse Pulse Resp BP BP 11/12/21 12:34 97.5 F L 67 18 110/54 L 11/12/21 08:00 11/12/21 07:56 98.4 F 70 14 160/68 H 11/12/21 07:22 61 11/12/21 04:06 97.3 F L 60 16 129/67 Pulse Ox O2 Del Method O2 Flow Rate 11/12/21 12:34 93 Nasal Cannula 2 11/12/21 08:00 Nasal Cannula 2 11/12/21 07:56 94 Nasal Cannula 2 11/12/21 07:22 11/12/21 04:06 99 Room Air PG Care Time/CCT Total # of Minutes Spent Total Time Spent: 75 Total Time Spent with Patient: Total time spent is greater than 50% in coordination of care (as documented) at patient's floor/unit and/or counseling patient: goals of care, code status, surrogate decision maker, prognosis, patient education and support Coding Level of Care Code 21425 Initial Inpt Care Lvl 3 Diagnoses Dyspnea R06.00 Weakness R53.1 Palliative care encounter Z51.5
[2021-11-12] MEDS: MIRTAZAPINE SOLTAB 15 MG PO SCH (20:15)
[2021-11-12] MEDS: FINASTERIDE 5 MG TAB PO SCH (20:16)
[2021-11-13] MEDS: HEPARIN SOD 5,000 UNIT/0.5 ML VIAL SQ SCH ×3 (05:40→21:37)
[2021-11-13 07:21] LABS: BUN Creatinine Ratio 33.3 (10-20); Calcium 8.9 mg/dl (8.5-10.1); Est GFR (African American) 55.1 ml/min; Est GFR (Non-African American) 47.5 ml/min
--- NOTE | 2021-11-13 07:27 | Hospitalist Progress Note ---
Date of Service November 13, 2021 Assessment & Plan (1) Acute on chronic HFrEF (heart failure with reduced ejection fraction): Plan: This is an 86-year-old male who presents with shortness of breath. 1. Shortness of breath, acute on chronic respiratory failure, uses home oxygen 2 liters, on admission requiring 4 liters. 2. History of chronic obstructive pulmonary disease, quit smoking in 2019, prior to it smoked for 44 years. 3. Also history of systolic congestive heart failure with EF of 15-20% on the echo in 07/2019. End-stage systolic heart failure, previously on hospice Acute on chronic systolic CHF Not on any diuretics at home. Chest x-ray, w/pleural effusions. In the ER, nebs and steroids given. Shortness of breath could be from his chronic obstructive pulmonary disease exacerbation and also [id number] systolic congestive heart failure. CT chest ordered IMPRESSION: 1. Cardiomegaly, pulmonary edema, and moderate to large bilateral pleural effusions. 2. Consolidation within the majority of the bilateral lower lobes. This favors compressive atelectasis from the pleural effusions. A superimposed pneumonia is considered less likely but not entirely excluded. 3. Mild emphysema. 4. Stable mild mediastinal lymphadenopathy. This is nonspecific but could be due to the chronic pulmonary edema. Started on nebs around the clock and p.r.n. and p.o. prednisone and p.o. doxycycline. IV Lasix 20 mg on admission Monitor in the tele floor. Cardiology consulted, appreciate their input Continue IV diuresis with Lasix, amlodipine stopped Trial Isordil then hydralazine if blood pressure permits. Continue low dose amiodarone and aspirin Patient does not seem to be much improved, and per cardiology it would be appropriate to discuss goals of care again, and involve palliative medicine. Patient previously on hospice. Tried to contact patient's daughter Adilene however I was only able to leave a message. Palliative medicine consulted - appreciate their input, pt remains Full code 4. History of nonsustained ventricular tachycardia, on amiodarone. 5. History of benign prostatic hyperplasia on Flomax and finasteride. 6. History of depression, on Remeron. 7. History of hypertension, on amlodipine. 8. Severe malnutrition. Dietitian consult, when stable. 9. History of chronic kidney disease stage III. Presently with creatinine of 1.2. We will follow the labs. 10. History of left bundle branch block and severe left ventricular dysfunction. As per Cardiology notes he underwent a cardiac catheterization and found to have nonischemic cardiomyopathy as his degree of left ventricular systolic dysfunction was out of proportion to the mild nonobstructive coronary artery disease. He was under home hospice in 2019, but later discontinued because he was doing okay. He has undergone implantation of biventricular pacemaker, AICD, but does not seem to significantly improve his functional status and ultimately it was removed due to pacemaker pocket infection and not reimplanted. DVT prophylaxis:heparin subcutaneous for now. DISPOSITION: Closely monitor in tele floor. Full code as per admitting physician discussion with the patient. PT, OT prior to discharge. Social service to help with discharge planning. Admission and Anticipated Discharge Date Admission Date: November 08, 2021 Subjective Patient seen in follow-up of shortness of breath, CHF exacerbation Patient is lying in bed, in NAD Denies having any edema, only complaint was shortness of breath Denies fevers or chills or significant cough (reports some mild chronic cough) No abdominal pain, nausea or vomiting Cardiology following Tried to contact patient's daughters Adilene and Alona, however I was only able to leave a message Palliative medicine consulted Review of Systems Review of Systems: All systems reviewed & are unremarkable except as noted in Subjective Physical Exam Physical Exam: GENERAL:Elderly, frail, cachectic male,in NAD, on suppl. O2 via NC HEENT: NC/AT. EOMI. Pupils equal, round and reactive to light. Oral mucosa moist. NECK: supple. CARDIOVASCULAR: S1 and S2 heard. Regular rate and rhythm. syst. murmur RESPIRATORY SYSTEM: Normal AP diameter. No accessory muscle use. Bilateral diminished breath sounds. No wheezing heard. ABDOMEN: Soft, bowel sounds present, nontender, no distention. NEURO:Awake and alert, able to answer simple questions appropriately. Speech fluent, moves extremities, hard of hearing EXTREMITIES: No edema, no erythema. Results & Data Results & Data ([facility]) Vital Signs (Past 12 Hours) Vital Signs Temp Pulse Pulse Resp BP BP Pulse Ox 11/13/21 06:51 36.3 C L 61 18 127/61 99 11/13/21 03:48 36.4 C L 57 L 18 118/59 L 99 11/13/21 00:00 64 11/12/21 20:10 11/12/21 23:33 36.8 C 55 L 18 111/58 L 100 11/12/21 20:10 60 125/62 O2 Del Method O2 Flow Rate 11/13/21 06:51 Nasal Cannula 2 11/13/21 03:48 Nasal Cannula 2 11/13/21 00:00 11/12/21 20:10 Nasal Cannula 2 11/12/21 23:33 Nasal Cannula 2 11/12/21 20:10 Laboratory Results 11/13/21 11/12/21 Range/Units 06:25 07:19 Sodium 139 140 (136-145) mmol/L Potassium 4.0 3.8 (3.5-5.1) mmol/L Chloride 97 L 96 L (98-107) mmol/L Carbon Dioxide 39 H 40 H (21-32) mmol/L Anion Gap 3 4 (3-11) BUN 45 H 49 H (6-23) mg/dl Creatinine 1.35 1.48 H (0.6-1.4) mg/dl Est Cr Clr Drug Dosing 29.0 29.7 ml/min Est GFR ( Amer) 55.1 49.3 ml/min Est GFR (Non-Af Amer) 47.5 42.5 ml/min BUN/Creatinine Ratio 33.3 H 33.1 H (10-20) Glucose 100 H 97 (70-99(Fasting)) mg/dl Calcium 8.9 9.1 (8.5-10.1) mg/dl Phosphorus 3.8 (2.5-4.9) mg/dl Magnesium 1.9 (1.7-2.4) mg/dl Medications Administered Current Inpatient Medications Acetaminophen (Acetaminophen 325 Mg Tab) 650 mg PO Q4H PRN PRN Reason: Pain or Fever Stop: 12/08/21 06:22 Amiodarone HCl (Amiodarone 200 Mg Tab) [facility] [place]: 12/08/21 08:59 Last Admin: 11/12/21 09:04 Dose: 100 mg Aspirin (Aspirin 81 Mg Ectab) 81 mg PO QAM [facility] Stop: 12/08/21 08:59 Last Admin: 11/12/21 09:04 Dose: 81 mg Doxycycline Hyclate (Doxycycline Hyclate 100 Mg Cap) 100 mg PO BID [facility] Stop: 11/15/21 08:59 Last Admin: 11/12/21 20:16 Dose: 100 mg Finasteride (Finasteride 5 Mg Tab) 5 mg PO HS [facility] Stop: 12/08/21 20:59 Last Admin: 11/12/21 20:16 Dose: 5 mg Furosemide (Furosemide Inj 20 Mg/2 Ml Vial) 20 mg IV DAILY [facility] Stop: 12/10/21 08:59 Last Admin: 11/12/21 09:05 Dose: 20 mg Heparin Sodium (Porcine) (Heparin Sod 5,000 Unit/0.5 Ml Vial) 5,000 units SQ Q8 [facility] Stop: 12/08/21 06:59 Last Admin: 11/13/21 05:40 Dose: 5,000 units Isosorbide Dinitrate (Isosorbide Dinitrate 5 Mg Tab) 5 mg PO BID [facility] Stop: 12/12/21 09:29 Last Admin: 11/12/21 20:16 Dose: 5 mg Levalbuterol HCl (Levalbuterol Hcl 1.25 Mg/3 Ml Neb) 1.25 mg NEB Q2H PRN; Protocol PRN Reason: Shortness Of Breath Or Wheezing Stop: 12/08/21 06:22 Mirtazapine (Mirtazapine Soltab 15 Mg) 45 mg PO HS [facility] Stop: 12/08/21 20:59 Last Admin: 11/12/21 20:15 Dose: 45 mg Nitroglycerin (Nitroglycerin Sl 0.4 Mg/Tab Tab) 0.4 mg SL UD PRN PRN Reason: Chest Pain Stop: 12/08/21 06:22 Pantoprazole Sodium (Pantoprazole 40 Mg Tab) 40 mg PO QAM [facility] Stop: 12/08/21 17:14 Last Admin: 11/12/21 09:05 Dose: 40 mg Polyethylene Glycol (Polyethylene (Miralax) 17 Gm Pack) 17 gm PO DAILY PRN PRN Reason: Constipation Stop: 12/08/21 06:22 Potassium Chloride (Potassium Chloride Pwd 20 Meq Pack) 20 meq PO BID [facility] Stop: 12/10/21 11:59 Last Admin: 11/12/21 20:15 Dose: 20 meq Prednisone (Prednisone 20 Mg Tab) 40 mg PO DAILY [facility] Stop: 12/08/21 08:59 Last Admin: 11/10/21 08:25 Dose: 40 mg Tamsulosin HCl (Tamsulosin Hcl 0.4 Mg Cap) 0.4 mg PO DAILY [facility] Stop: 12/08/21 08:59 Last Admin: 11/10/21 08:23 Dose: 0.4 mg
[2021-11-13] MEDS: predniSONE 20 MG TAB PO SCH (09:16)
[2021-11-13] MEDS: ASPIRIN 81 MG ECTAB PO SCH (09:16)
[2021-11-13] MEDS: ISOSORBIDE DINITRATE 5 MG TAB PO SCH ×2 (09:16→20:16)
[2021-11-13] MEDS: DOXYCYCLINE HYCLATE 100 MG CAP PO SCH ×2 (09:16→20:16)
[2021-11-13] MEDS: POTASSIUM CHLORIDE PWD 20 MEQ PACK PO SCH ×2 (09:17→20:16)
[2021-11-13] MEDS: TAMSULOSIN HCL 0.4 MG CAP PO SCH (09:17)
[2021-11-13] MEDS: AMIODARONE 200 MG TAB PO SCH (09:17)
[2021-11-13] MEDS: PANTOprazole 40 MG TAB PO SCH (09:17)
[2021-11-13] MEDS: FUROSEMIDE 40 MG TAB PO SCH (13:36)
[2021-11-13] MEDS: FINASTERIDE 5 MG TAB PO SCH (20:16)
[2021-11-13] MEDS: MIRTAZAPINE SOLTAB 15 MG PO SCH (20:16)
[2021-11-14] MEDS: HEPARIN SOD 5,000 UNIT/0.5 ML VIAL SQ SCH ×3 (05:49→20:08)
[2021-11-14 06:09] LABS: Hematocrit (blood only) 35.6 % (40.1-51.0); Hemoglobin 11.7 g/dl (14.0-18.0); Mean Corpuscular Hemoglobin 33.1 pg (25.0-34.0); Mean Corpuscular Hgb Conc 32.9 g/dL (32.0-36.0); Mean Corpuscular Volume 100.8 fL (80.0-100.0); Mean Platelet Volume 11.5 fL (9.4-12.4); Platelet Count 210 K/uL (130-400); RDW Coefficient of Variation 12.1 % (11.5-14.5); RDW Standard Deviation 45.3 fL (36.4-46.3); Red Blood Count 3.53 M/uL (4.63-6.08); White Blood Count 12.44 K/ul (4.8-10.8)
[2021-11-14 06:33] LABS: BUN Creatinine Ratio 35.2 (10-20); Calcium 9.2 mg/dl (8.5-10.1); Creatinine Clr Calc Pharmacy 31.2 ml/min; Est GFR (African American) 58.8 ml/min; Est GFR (Non-African American) 50.7 ml/min; Phosphorus 3.4 mg/dl (2.5-4.9)
[2021-11-14] MEDS: DOXYCYCLINE HYCLATE 100 MG CAP PO SCH ×2 (08:32→20:07)
[2021-11-14] MEDS: predniSONE 20 MG TAB PO SCH (08:32)
[2021-11-14] MEDS: AMIODARONE 200 MG TAB PO SCH (08:32)
[2021-11-14] MEDS: POTASSIUM CHLORIDE PWD 20 MEQ PACK PO SCH ×2 (08:32→20:07)
[2021-11-14] MEDS: ASPIRIN 81 MG ECTAB PO SCH (08:32)
[2021-11-14] MEDS: PANTOprazole 40 MG TAB PO SCH (08:32)
[2021-11-14] MEDS: TAMSULOSIN HCL 0.4 MG CAP PO SCH (08:32)
[2021-11-14] MEDS: FUROSEMIDE 40 MG TAB PO SCH (08:32)
[2021-11-14] MEDS: ISOSORBIDE DINITRATE 5 MG TAB PO SCH ×2 (08:32→20:08)
--- NOTE | 2021-11-14 11:18 | Hospitalist Progress Note ---
Date of Service November 14, 2021 Assessment & Plan (1) Acute on chronic HFrEF (heart failure with reduced ejection fraction): Plan: This is an 86-year-old male who presents with shortness of breath. 1. Shortness of breath, acute on chronic respiratory failure, uses home oxygen 2 liters, on admission requiring 4 liters. 2. History of chronic obstructive pulmonary disease, quit smoking in 2019, prior to it smoked for 44 years. 3. Also history of systolic congestive heart failure with EF of 15-20% on the echo in 07/2019. End-stage systolic heart failure, previously on hospice Acute on chronic systolic CHF Not on any diuretics at home. Chest x-ray, w/pleural effusions. In the ER, nebs and steroids given. Shortness of breath could be from his chronic obstructive pulmonary disease exacerbation and also [id number] systolic congestive heart failure. CT chest ordered IMPRESSION: 1. Cardiomegaly, pulmonary edema, and moderate to large bilateral pleural effusions. 2. Consolidation within the majority of the bilateral lower lobes. This favors compressive atelectasis from the pleural effusions. A superimposed pneumonia is considered less likely but not entirely excluded. 3. Mild emphysema. 4. Stable mild mediastinal lymphadenopathy. This is nonspecific but could be due to the chronic pulmonary edema. Started on nebs around the clock and p.r.n. and p.o. prednisone and p.o. doxycycline. IV Lasix 20 mg on admission Monitor in the tele floor. Cardiology consulted, appreciate their input Continue IV diuresis with Lasix, amlodipine stopped Trial Isordil then hydralazine if blood pressure permits. Continue low dose amiodarone and aspirin Patient does not seem to be much improved, and per cardiology it would be appropriate to discuss goals of care again, and involve palliative medicine. Patient previously on hospice. Palliative medicine consulted - appreciate their input, pt remains Full code 11/14 -currently patient is breathing on room air, comfortable will obtain 2 step study 4. History of nonsustained ventricular tachycardia, on amiodarone. 5. History of benign prostatic hyperplasia on Flomax and finasteride. 6. History of depression, on Remeron. 7. History of hypertension, on amlodipine. 8. Severe malnutrition. Dietitian consult, when stable. 9. History of chronic kidney disease stage III. Presently with creatinine of 1.2. We will follow the labs. 10. History of left bundle branch block and severe left ventricular dysfunction. As per Cardiology notes he underwent a cardiac catheterization and found to have nonischemic cardiomyopathy as his degree of left ventricular systolic dysfunction was out of proportion to the mild nonobstructive coronary artery disease. He was under home hospice in 2019, but later discontinued because he was doing okay. He has undergone implantation of biventricular pacemaker, AICD, but does not seem to significantly improve his functional status and ultimately it was removed due to pacemaker pocket infection and not reimplanted. DVT prophylaxis:heparin subcutaneous for now. DISPOSITION:tele floor. Full code as per admitting physician discussion with the patient. Plan to DC home w/ HH Admission and Anticipated Discharge Date Admission Date: November 08, 2021 Subjective Patient seen in follow-up of shortness of breath, CHF exacerbation Patient is lying in bed, in NAD Denies having any edema, only complaint was shortness of breath Denies fevers or chills or significant cough (reports some mild chronic cough) No abdominal pain nausea or vomiting Cardiology following Met with pt's daughter Adilene at the bedside and updated yesterday. CM contacted - home health set up starting Monday. Palliative medicine consulted Review of Systems Review of Systems: All systems reviewed & are unremarkable except as noted in Subjective Physical Exam Physical Exam: GENERAL:Elderly, frail, cachectic male,in NAD, currently on RA HEENT: NC/AT. EOMI. Pupils equal, round and reactive to light. Oral mucosa moist. NECK: supple. CARDIOVASCULAR: S1 and S2 heard. Regular rate and rhythm. syst. murmur RESPIRATORY SYSTEM: Normal AP diameter. No accessory muscle use. diminished breath sounds at bases. air movement improved. No wheezing. ABDOMEN: Soft, bowel sounds present, nontender, no distention. NEURO:Awake and alert, able to answer simple questions appropriately. Speech fluent, moves extremities, hard of hearing EXTREMITIES: No edema, no erythema. Results & Data Results & Data ([facility]) Vital Signs (Past 12 Hours) Vital Signs Temp Pulse Pulse Resp BP Pulse Ox O2 Del Method 11/14/21 07:48 36.6 C 69 18 130/53 L 96 Room Air 11/14/21 00:00 36.4 C L 68 14 123/69 96 Room Air 11/14/21 00:00 62 11/13/21 23:18 36.4 C L 65 16 113/58 L 99 Nasal Cannula Laboratory Results 11/14/21 11/14/21 Range/Units 05:46 05:46 WBC 12.44 H (4.8-10.8) K/ul RBC 3.53 L (4.63-6.08) M/uL Hgb 11.7 L (14.0-18.0) g/dl Hct 35.6 L (40.1-51.0) % MCV 100.8 H (80.0-100.0) fL MCH 33.1 (25.0-34.0) pg MCHC 32.9 (32.0-36.0) g/dL RDW Std Deviation 45.3 (36.4-46.3) fL RDW Coeff of Ty 12.1 (11.5-14.5) % Plt Count 210 (130-400) K/uL MPV 11.5 (9.4-12.4) fL Sodium 137 (136-145) mmol/L Potassium 4.0 (3.5-5.1) mmol/L Chloride 95 L (98-107) mmol/L Carbon Dioxide 37 H (21-32) mmol/L Anion Gap 5 (3-11) BUN 45 H (6-23) mg/dl Creatinine 1.28 (0.6-1.4) mg/dl Est Cr Clr Drug Dosing 31.2 ml/min Est GFR ( Amer) 58.8 ml/min Est GFR (Non-Af Amer) 50.7 ml/min BUN/Creatinine Ratio 35.2 H (10-20) Glucose 118 H (70-99(Fasting)) mg/dl Calcium 9.2 (8.5-10.1) mg/dl Phosphorus 3.4 (2.5-4.9) mg/dl Magnesium 2.0 (1.7-2.4) mg/dl Medications Administered Current Inpatient Medications Acetaminophen (Acetaminophen 325 Mg Tab) 650 mg PO Q4H PRN PRN Reason: Pain or Fever Stop: 12/08/21 06:22 Amiodarone HCl (Amiodarone 200 Mg Tab) 100 mg PO [facility] Stop: 12/08/21 08:59 Last Admin: 11/14/21 08:32 Dose: 100 mg Aspirin (Aspirin 81 Mg Ectab) 81 mg PO [facility] Stop: 12/08/21 08:59 Last Admin: 11/14/21 08:32 Dose: 81 mg Doxycycline Hyclate (Doxycycline Hyclate 100 Mg Cap) 100 mg PO BID [facility] Stop: 11/15/21 08:59 Last Admin: 11/14/21 08:32 Dose: 100 mg Finasteride (Finasteride 5 Mg Tab) 5 mg PO [facility] Stop: 12/08/21 20:59 Last Admin: 11/13/21 20:16 Dose: 5 mg Furosemide (Furosemide Inj 20 Mg/2 Ml Vial) 20 mg IV DAILY [facility] Stop: 12/10/21 08:59 Last Admin: 11/12/21 09:05 Dose: 20 mg Furosemide (F[facility]semide 40 Mg Tab) [facility] [place]: 12/13/21 12:44 Last Admin: 11/14/21 08:32 Dose: 40 mg Heparin Sodium (Porcine) (Heparin Sod 5,000 Unit/0.5 Ml Vial) 5,000 units SQ Q8 [facility] Stop: 12/08/21 06:59 Last Admin: 11/14/21 05:49 Dose: 5,000 units Isosorbide Dinitrate (Isosorbide Dinitrate 5 Mg Tab) 5 mg PO BID [facility] Stop: 12/12/21 09:29 Last Admin: 11/14/21 08:32 Dose: 5 mg Levalbuterol HCl (Levalbuterol Hcl 1.25 Mg/3 Ml Neb) 1.25 mg NEB Q2H PRN; Protocol PRN Reason: Shortness Of Breath Or Wheezing Stop: 12/08/21 06:22 Mirtazapine (Mirtazapine Soltab 15 Mg) 45 mg PO [facility] Stop: 12/08/21 20:59 Last Admin: 11/13/21 20:16 Dose: 45 mg Nitroglycerin (Nitroglycerin Sl 0.4 Mg/Tab Tab) 0.4 mg SL UD PRN PRN Reason: Chest Pain Stop: 12/08/21 06:22 Pantoprazole Sodium (Pantoprazole 40 Mg Tab) 40 mg PO [facility] Stop: 12/08/21 17:14 Last Admin: 11/14/21 08:32 Dose: 40 mg Polyethylene Glycol (Polyethylene (Miralax) 17 Gm Pack) 17 gm PO DAILY PRN PRN Reason: Constipation Stop: 12/08/21 06:22 Potassium Chloride (Potassium Chloride Pwd 20 Meq Pack) 20 meq PO BID [facility] Stop: 12/10/21 11:59 Last Admin: 11/14/21 08:32 Dose: 20 meq Prednisone (Prednisone 20 Mg Tab) 40 mg PO DAILY [facility] Stop: 12/08/21 08:59 Last Admin: 11/14/21 08:32 Dose: 40 mg Tamsulosin HCl (Tamsulosin Hcl 0.4 Mg Cap) 0.4 mg PO DAILY [facility] Stop: 12/08/21 08:59 Last Admin: 11/14/21 08:32 Dose: 0.4 mg
[2021-11-14] MEDS: MIRTAZAPINE SOLTAB 15 MG PO SCH (20:08)
[2021-11-14] MEDS: FINASTERIDE 5 MG TAB PO SCH (20:08)
[2021-11-15] MEDS: HEPARIN SOD 5,000 UNIT/0.5 ML VIAL SQ SCH (05:27)
[2021-11-15 07:50] LABS: BUN Creatinine Ratio 33.3 (10-20); Creatinine Clr Calc Pharmacy 30.1 ml/min; Est GFR (African American) 56.6 ml/min; Est GFR (Non-African American) 48.8 ml/min; Phosphorus 3.1 mg/dl (2.5-4.9); Potassium 3.9 mmol/L (3.5-5.1)
[2021-11-15] MEDS: ISOSORBIDE DINITRATE 5 MG TAB PO SCH (07:50)
[2021-11-15] MEDS: AMIODARONE 200 MG TAB PO SCH (07:50)
[2021-11-15] MEDS: PANTOprazole 40 MG TAB PO SCH (07:50)
[2021-11-15] MEDS: predniSONE 20 MG TAB PO SCH (07:51)
[2021-11-15] MEDS: ASPIRIN 81 MG ECTAB PO SCH (07:51)
[2021-11-15] MEDS: POTASSIUM CHLORIDE PWD 20 MEQ PACK PO SCH (07:51)
[2021-11-15] MEDS: FUROSEMIDE 40 MG TAB PO SCH (07:51)
[2021-11-15] MEDS: TAMSULOSIN HCL 0.4 MG CAP PO SCH (07:51)
--- NOTE | 2021-11-15 08:43 | Hospitalist Progress Note ---
Date of Service November 15, 2021 Assessment & Plan (1) Acute on chronic HFrEF (heart failure with reduced ejection fraction): Plan: This is an 86-year-old male who presents with shortness of breath. 1. Shortness of breath, acute on chronic respiratory failure, uses home oxygen 2 liters, on admission requiring 4 liters. 2. History of chronic obstructive pulmonary disease, quit smoking in 2019, prior to it smoked for 44 years. 3. Also history of systolic congestive heart failure with EF of 15-20% on the echo in 07/2019. End-stage systolic heart failure, previously on hospice Acute on chronic systolic CHF Not on any diuretics at home. Chest x-ray, w/pleural effusions. In the ER, nebs and steroids given. Shortness of breath could be from his chronic obstructive pulmonary disease exacerbation and also [id number] systolic congestive heart failure. CT chest ordered IMPRESSION: 1. Cardiomegaly, pulmonary edema, and moderate to large bilateral pleural effusions. 2. Consolidation within the majority of the bilateral lower lobes. This favors compressive atelectasis from the pleural effusions. A superimposed pneumonia is considered less likely but not entirely excluded. 3. Mild emphysema. 4. Stable mild mediastinal lymphadenopathy. This is nonspecific but could be due to the chronic pulmonary edema. Started on nebs around the clock and p.r.n. and p.o. prednisone and p.o. doxycycline. IV Lasix 20 mg on admission Monitor in the tele floor. Cardiology consulted, appreciate their input Continue IV diuresis with Lasix, amlodipine stopped Trial Isordil then hydralazine if blood pressure permits. Continue low dose amiodarone and aspirin Patient does not seem to be much improved, and per cardiology it would be appropriate to discuss goals of care again, and involve palliative medicine. Patient previously on hospice. Palliative medicine consulted - appreciate their input, pt remains Full code 11/14 -currently patient is breathing on room air, comfortable Obtained 2 step study - negative 4. History of nonsustained ventricular tachycardia, on amiodarone. 5. History of benign prostatic hyperplasia on Flomax and finasteride. 6. History of depression, on Remeron. 7. History of hypertension, on amlodipine. 8. Severe malnutrition. Dietitian consult, when stable. 9. History of chronic kidney disease stage III. Presently with creatinine of 1.2. We will follow the labs. 10. History of left bundle branch block and severe left ventricular dysfunction. As per Cardiology notes he underwent a cardiac catheterization and found to have nonischemic cardiomyopathy as his degree of left ventricular systolic dysfunction was out of proportion to the mild nonobstructive coronary artery disease. He was under home hospice in 2019, but later discontinued because he was doing okay. He has undergone implantation of biventricular pacemaker, AICD, but does not seem to significantly improve his functional status and ultimately it was removed due to pacemaker pocket infection and not reimplanted. DVT prophylaxis:heparin subcutaneous for now. DISPOSITION:tele floor. Full code as per admitting physician discussion with the patient. Plan to DC home w/ HH Admission and Anticipated Discharge Date Admission Date: November 08, 2021 Subjective Patient seen in follow-up of shortness of breath, CHF exacerbation Patient is lying in bed, in NAD Denies having any edema, only complaint was shortness of breath Denies fevers or chills or significant cough (reports some mild chronic cough) No abdominal pain nausea or vomiting Cardiology following Met with pt's daughter Adilene at the bedside and updated over the weekend. CM contacted - home health set up starting Monday. Palliative medicine consulted 2 step test obtained, negative Review of Systems Review of Systems: All systems reviewed & are unremarkable except as noted in Subjective Physical Exam Physical Exam: GENERAL:Elderly, frail, cachectic male,in NAD, currently on RA HEENT: NC/AT. EOMI. Pupils equal, round and reactive to light. Oral mucosa moist. NECK: supple. CARDIOVASCULAR: S1 and S2 heard. Regular rate and rhythm. syst. murmur RESPIRATORY SYSTEM: Normal AP diameter. No accessory muscle use. diminished breath sounds at bases. air movement improved. No wheezing. ABDOMEN: Soft, bowel sounds present, nontender, no distention. NEURO:Awake and alert, able to answer simple questions appropriately. Speech fluent, moves extremities, hard of hearing EXTREMITIES: No edema, no erythema. Results & Data Results & Data ([facility]) Vital Signs (Past 12 Hours) Vital Signs Temp Pulse Pulse Resp BP Pulse Ox O2 Del Method 11/15/21 08:39 36.9 C 71 18 129/69 94 Room Air 11/15/21 03:57 Room Air 11/15/21 03:55 36.6 C 66 18 125/66 93 Room Air 11/15/21 00:00 66 11/14/21 23:42 36.7 C 72 16 132/66 95 Room Air Laboratory Results 11/15/21 Range/Units 06:26 Sodium 137 (136-145) mmol/L Potassium 3.9 (3.5-5.1) mmol/L Chloride 97 L (98-107) mmol/L Carbon Dioxide 35 H (21-32) mmol/L Anion Gap 5 (3-11) BUN 44 H (6-23) mg/dl Creatinine 1.32 (0.6-1.4) mg/dl Est Cr Clr Drug Dosing 30.1 ml/min Est GFR ( Amer) 56.6 ml/min Est GFR (Non-Af Amer) 48.8 ml/min BUN/Creatinine Ratio 33.3 H (10-20) Glucose 110 H (70-99(Fasting)) mg/dl Calcium 9.0 (8.5-10.1) mg/dl Phosphorus 3.1 (2.5-4.9) mg/dl Magnesium 2.0 (1.7-2.4) mg/dl Medications Administered Current Inpatient Medications Acetaminophen (Acetaminophen 325 Mg Tab) 650 mg PO Q4H PRN PRN Reason: Pain or Fever Stop: 12/08/21 06:22 Amiodarone HCl ([facility] 200 Mg Tab) [facility] [place] Stop: 12/08/21 08:59 Last Admin: 11/15/21 07:50 Dose: 100 mg Aspirin (Aspirin 81 Mg Ectab) 81 mg PO QAM [facility] Stop: 12/08/21 08:59 Last Admin: 11/15/21 07:51 Dose: 81 mg Doxycycline Hyclate (Doxycycline Hyclate 100 Mg Cap) 100 mg PO BID [facility] Stop: 11/15/21 08:59 Last Admin: 11/14/21 20:07 Dose: 100 mg Finasteride (Finasteride 5 Mg Tab) 5 mg PO HS [facility] Stop: 12/08/21 20:59 Last Admin: 11/14/21 20:08 Dose: 5 mg Furosemide (Furosemide Inj 20 Mg/2 Ml Vial) 20 mg IV DAILY [facility] Stop: 12/10/21 08:59 Last Admin: 11/12/21 09:05 Dose: 20 mg Furosemide (Furosemide 40 Mg Tab) 40 mg PO QAM [facility] Stop: 12/13/21 12:44 Last Admin: 11/15/21 07:51 Dose: 40 mg Heparin Sodium (Porcine) (Heparin Sod 5,000 Unit/0.5 Ml Vial) 5,000 units SQ Q8 [facility] Stop: 12/08/21 06:59 Last Admin: 11/15/21 05:27 Dose: 5,000 units Isosorbide Dinitrate (Isosorbide Dinitrate 5 Mg Tab) 5 mg PO BID [facility] Stop: 12/12/21 09:29 Last Admin: 11/15/21 07:50 Dose: 5 mg Levalbuterol HCl (Levalbuterol Hcl 1.25 Mg/3 Ml Neb) 1.25 mg NEB Q2H PRN; Protocol PRN Reason: Shortness Of Breath Or Wheezing Stop: 12/08/21 06:22 Mirtazapine (Mirtazapine Soltab 15 Mg) 45 mg PO HS [facility] Stop: 12/08/21 20:59 Last Admin: 11/14/21 20:08 Dose: 45 mg Nitroglycerin (Nitroglycerin Sl 0.4 Mg/Tab Tab) 0.4 mg SL UD PRN PRN Reason: Chest Pain Stop: 12/08/21 06:22 Pantoprazole Sodium (Pantoprazole 40 Mg Tab) 40 mg PO QAM [facility] Stop: 12/08/21 17:14 Last Admin: 11/15/21 07:50 Dose: 40 mg Polyethylene Glycol (Polyethylene (Miralax) 17 Gm Pack) 17 gm PO DAILY PRN PRN Reason: Constipation Stop: 12/08/21 06:22 Potassium Chloride (Potassium Chloride Pwd 20 Meq Pack) 20 meq PO BID [facility] Stop: 12/10/21 11:59 Last Admin: 11/15/21 07:51 Dose: 20 meq Prednisone (Prednisone 20 Mg Tab) 40 mg PO DAILY [facility] Stop: 12/08/21 08:59 Last Admin: 11/15/21 07:51 Dose: 40 mg Tamsulosin HCl (Tamsulosin Hcl 0.4 Mg Cap) 0.4 mg PO DAILY [facility] Stop: 12/08/21 08:59 Last Admin: 11/15/21 07:51 Dose: 0.4 mg
--- NOTE | 2021-11-15 11:20 | Discharge Summary ---
Date of Service November 15, 2021 Admission HPI Per Admitting Provider This is an 86-year-old male with past medical history significant for COPD, mild hyperlipidemia, pulmonary nodules, atherosclerotic cardiovascular disease, chronic systolic CHF, left bundle-branch block, hypertension, nonischemic cardiomyopathy, history of nonsustained ventricular tachycardia, severe malnutrition, BPH, chronic kidney disease stage III, depression, tobacco use disorder, who lives at home with his , presents with shortness of breath. The patient says he is having sob since yesterday and tonight got worse. Denies any fever or chills. He has chronic cough. Denies any chest pain. Currently, he is saturating okay on 4 liters, he is on oxygen chronically at home on 2 liters. He says initially he used to use it only at night, but last several months he is using all the time. He denies any headache. Vision is okay, hard of hearing. Has some chronic runny nose, no sore throat. Appetite is poor. No difficulty swallowing. No nausea, no abdominal pain. Normal bowel and bladder movements. No swelling in the legs. He states he ambulates without support. His kids live close by. He gets Meals on Wheels. Admission Exam Per Admitting Provider GENERAL: The patient is old and frail, not in acute distress. VITAL SIGNS: Temperature 36.8, pulse 76, respiratory rate 19, blood pressure 149/51, oxygen 99% on 4 liters. HEENT: Pupils equal, round and reactive to light. Oral mucosa moist. NECK: No JVD or neck masses. CARDIOVASCULAR: S1 and S2 heard. Regular rate and rhythm. No murmur, no gallop. RESPIRATORY SYSTEM: Normal AP diameter. No accessory muscle use. Bilateral diminished breath sounds. No wheezing heard. No crackles. ABDOMEN: Soft, bowel sounds present, nontender, no distention. CENTRAL NERVOUS SYSTEM: Cranial nerves II-XII grossly intact, nonfocal. EXTREMITIES: No edema, no erythema. Principal Diagnosis Acute heart failure exacerbation, end-stage systolic heart failure Discharge Exam GENERAL:Elderly, frail, cachectic male,in NAD, currently on RA HEENT: NC/AT. EOMI. Pupils equal, round and reactive to light. Oral mucosa moist. NECK: supple. CARDIOVASCULAR: S1 and S2 heard. Regular rate and rhythm. syst. murmur RESPIRATORY SYSTEM: Normal AP diameter. No accessory muscle use. diminished breath sounds at bases. air movement improved. No wheezing. ABDOMEN: Soft, bowel sounds present, nontender, no distention. NEURO:Awake and alert, able to answer simple questions appropriately. Speech fluent, moves extremities, hard of hearing EXTREMITIES: No edema, no erythema. Discharge Data Allergies Allergy/AdvReac Type Severity Reaction Status Date / Time No Known Allergies Allergy Unknown Verified 11/08/21 02:57 Consultations 11/08/21 03:53 ED Decision to Admit Stat 11/08/21 08:00 Consult Cardiology Routine 11/11/21 13:21 Consult Palliative Care Routine Ordered Studies 11/08/21 05:03 CT chest diagnostic wo con Urgent IMPRESSION: 1. Cardiomegaly, pulmonary edema, and moderate to large bilateral pleural effusions. 2. Consolidation within the majority of the bilateral lower lobes. This favors compressive atelectasis from the pleural effusions. A superimposed pneumonia is considered less likely but not entirely excluded. 3. Mild emphysema. 4. Stable mild mediastinal lymphadenopathy. This is nonspecific but could be due to the chronic pulmonary edema. Hospital Course (1) Acute on chronic HFrEF (heart failure with reduced ejection fraction): This is an 86-year-old male who presents with shortness of breath. 1. Shortness of breath, acute on chronic respiratory failure, uses home oxygen 2 liters, on admission requiring 4 liters. 2. History of chronic obstructive pulmonary disease, quit smoking in 2019, prior to it smoked for 44 years. 3. Also history of systolic congestive heart failure with EF of 15-20% on the echo in 07/2019. End-stage systolic heart failure, previously on hospice Acute on chronic systolic CHF Not on any diuretics at home. Chest x-ray, w/pleural effusions. In the ER, nebs and steroids given. Shortness of breath could be from his chronic obstructive pulmonary disease exac erbation and also [id number] systolic congestive heart failure. CT chest ordered IMPRESSION: 1. Cardiomegaly, pulmonary edema, and moderate to large bilateral pleural effusions. 2. Consolidation within the majority of the bilateral lower lobes. This favors compressive atelectasis from the pleural effusions. A superimposed pneumonia is considered less likely but not entirely excluded. 3. Mild emphysema. 4. Stable mild mediastinal lymphadenopathy. This is nonspecific but could be due to the chronic pulmonary edema. Started on nebs around the clock and p.r.n. and p.o. prednisone and p.o. doxycycline. IV Lasix 20 mg on admission Monitor in the tele floor. Cardiology consulted, appreciate their input Continue IV diuresis with Lasix, amlodipine stopped Trial Isordil then hydralazine if blood pressure permits. Continue low dose amiodarone and aspirin Patient does not seem to be much improved, and per cardiology it would be appropriate to discuss goals of care again, and involve palliative medicine. Patient previously on hospice. Palliative medicine consulted - appreciate their input, pt remains Full code 11/14 -currently patient is breathing on room air, comfortable Obtained 2 step study - negative 4. History of nonsustained ventricular tachycardia, on amiodarone. 5. History of benign prostatic hyperplasia on Flomax and finasteride. 6. History of depression, on Remeron. 7. History of hypertension, on amlodipine. 8. Severe malnutrition. Dietitian consult, when stable. 9. History of chronic kidney disease stage III. Presently with creatinine of 1.2. We will follow the labs. 10. History of left bundle branch block and severe left ventricular dysfunction. As per Cardiology notes he underwent a cardiac catheterization and found to have nonischemic cardiomyopathy as his degree of left ventricular systolic dysfunction was out of proportion to the mild nonobstructive coronary artery disease. He was under home hospice in 2019, but later discontinued because he was doing okay. He has undergone implantation of biventricular pacemaker, AICD, but does not seem to significantly improve his functional status and ultimately it was removed due to pacemaker pocket infection and not reimplanted. Dispo: PR home w/home health Home Health Attestation I certify that this patient is under my care and that I, or a physicians assistant therapy aide working with me, had a face to-face encounter that meets the home health [id number] encounter requirements with this patient. The encounter with the patient was in whole, or in part, for the following medical condition, which is the primary reason for home health care (list medic al condition): COPD/CHF/EF-15% I certify that, based on my findings, the following services are medically necessary home health services: My clinical findings support the need for the above services because: Skilled Nsg Assessment Skilled Nsg Instruction New Medications Skilled Nsg Assess Pt Illness, Disease and Sx Monitoring Vital Signs Further, I certify that my clinical findings support that this patient is homebound (i.e. absences from home require considerable and taxing effort and are for medical reasons or oriental orthodox services or infrequently or of short duration when for other reasons) because: Poor Endurance; SOB Minimal Exertion Certification for Home Health Services: Based on the above findings, I certify that this patient is confined to the home and needs intermittent retirement care, physical therapy and/or speech therapy or continues to need occupational therapy. The patient is under my care, and I have initiated the establishment of the plan of care. This patient will be followed by a physician who will periodically review the plan of care. Total Time Total Time Spent Total Time Spent (In Minutes): 40 Discharge Plan Discharge Items Patient Disposition: Home - Home Health Services Reason For Visit: SHORTNESS OF BREATH Discharge Diagnosis: Acute heart failure exacerbation, end-stage systolic heart failure Activity: Per Instructions section Non-emergency contact: Primary Care Provider and Job Forwarder Call non-emergency contact if: you have any medication questions and your symptoms worsen Follow-up/Referrals: Taylor Lopez DO [Primary Care Provider] - Diet: Heart Healthy Add Attending Provider Instructions: Follow-up with a primary care doctor, within 1 week. Stop taking amlodipine. Take furosemide/Lasix 40 mg daily, and isosorbide dinitrate. Also take potassium supplement. If your blood pressure permits, your primary care doctor may start you on hydralazine. Continue taking amiodarone and aspirin. Addtl Manager Database Provider Instructions: Call your Primary Care doctor if any of the following symptoms or problems start or get worse: * Shortness of breath or difficulty breathing * Wake up at night short of breath * Chest pain * Cough * Swelling of your hands, feet, or legs * More fatigued or tired with your normal activity * Palpitations - sudden fast heart beats WEIGHT * Weigh yourself every morning after using the bathroom. * Use the same scale. * Wear the same amount of clothing. * Write your weight down on a chart. * Call your Primary Care doctor if you gain more than 2-3 pounds in 1-2 days. MEDICATIONS * Use this discharge instruction sheet for medication instructions. * Take your medications at the time your doctor ordered. * Do not skip a dose of your medicines. * If you miss a dose of medicine, take it as soon as possible, but DO NOT DOUBLE A DOSE. * Read your medicine information when you get home. * Know all of the side effects of your medicine. If in doubt, ask your pharmacist * Call your Primary Care doctor's office if you have any side effects. * Be sure all of your doctors know what medicine and herbs you take (including cold, flu, and herbal medicine). Take the following with you to your follow-up doctor appointments: * Weight Chart * Medication List * List of questions Do not drink excessive alcohol, beer or wine. Pending Studies at Discharge: No Stand-Alone Forms: [facility] [employer], Smoking Cessation Medications and DC Order Prescriptions: New isosorbide dinitrate 5 mg Tablet 5 mg PO BID Qty: 60 0RF furosemide 40 mg Tablet 40 mg PO QAM Qty: 30 0RF potassium chloride 20 mEq Packet 20 meq PO DAILY Qty: 30 0RF Continued aspirin 81 mg Tablet,Delayed Release (Dr/Ec) 81 mg PO QAM mirtazapine 45 mg tablet 45 mg PO HS finasteride 5 mg tablet 5 mg PO HS amiodarone 200 mg tablet 100 mg PO QAM Qty: 0 0RF tamsulosin 0.4 mg capsule 0.4 mg PO DAILY acetaminophen 325 mg Tablet 650 mg PO Q4H PRN (Reason: fever or pain) Qty: 90 0RF Discontinued amlodipine 2.5 mg tablet 2.5 mg PO DAILY Discharge Orders: Discharge Order (Routine); Ordered 11/15/21 Ordered By: Mukul Caceres Admission Data Admit Date/Time: 11/08/21 05:01 Attending Provider: Mukul Caceres Admit Provider: Edward Dominguez Primary Care Provider: Taylor Lopez Other Providers: Edward Dominguez ; Krzysztof Davidson ; Samuel Henderson ; Rajeev Ba ; Andrey Hart ; Roel Kidd ; Justin Valdez Rebecca K ; Marilou Zamorano ; Norah Bowen ; Fox Valle ; Leonie Garcia ; Ella Harrison ; [place] Other Interventions: Discharge Summary Assessment (RN) Last Done: 11/15/21 11:50
== END 2021-11-15 13:16 | disposition home health service (06) | DRG 291 ==
LOC: ED 02:41 → 2S 05:01 → SUATTDRO 05:01 → 2S 06:30

== ENCOUNTER 2021-12-13 02:51 | Inpatient (IN) ==
[2021-12-13] MEDS ORDERED: ALBUT/IPRATROP 3MG/0.5MG NEB 3 ML VIAL NEB STA (03:06)
[2021-12-13] MEDS ORDERED: methylPREDNISolone 125 MG/2 ML VIAL IV STA (03:06)
--- NOTE | 2021-12-13 03:08 | Emergency Department Note ---
Impression & Plan Hypoxia ADMIT ED Provider Note HPI: The patient is an 86-year-old gentleman with history of COPD, on 2 L nasal cannula oxygen at baseline, presents the emergency department with increased work of breathing and shortness of breath since earlier this evening. Per EMS report on their arrival the patient was saturating at 85% on his normal 2 L nasal cannula oxygen and therefore this was increased to 6 L with good improvement. On my assessment the patient states that his breathing feels improved, he is saturating at 98% on 6 L nasal cannula oxygen. Patient is very frail and cachectic appearing on arrival, he does not have any wheezing but he does have some diminished breath sounds bilaterally. Patient denies any chest pain. Patient is otherwise afebrile and stable on arrival now on 6 L nasal cannula oxygen. ROS: -Pulmonary: Shortness of breath *10 point review systems was conducted and is otherwise negative unless stated above *Outpatient medications and allergy history reviewed PE: General: Alert, frail-appearing, cachectic HEENT: Normocephalic, atraumatic Eyes: Extraocular eye movement is intact, no scleral erythema Pulmonary: Diminished bilateral breath sounds Cardio: Regular rate and rhythm GI: Abdomen is soft, nontender : No suprapubic tenderness MSK: No evidence of trauma or malformation of the extremities, no edema Skin: No evidence of rash Neuro: Alert, no focal deficits Psychiatric: Cooperative monitoring engineer: - An order was placed for continuous cardiac monitoring - Patient was noted to be in sinus rhythm with a rate of 75 EKG: Rate: 81 Rhythm: Sinus rhythm Intervals: QRS 166 ms with chronic left bundle branch block, QTC [address] changes: No ST elevation Time: 0305 Medical Decision Making: Patient presented to the emergency department with increased work of breathing, this is likely multifactorial in nature given his history of diastolic heart failure in addition to COPD. Patient was given DuoNeb breathing treatment and IV Solu-Medrol prior to arrival via EMS, on arrival here to the ED he overall just appears frail, his oxygen is improved on 6 L nasal cannula oxygen which was eventually weaned down to 4 L. His baseline is 2 L. Troponin is very mildly elevated at 30, EKG does not show any acute ischemic changes, patient denies any chest pain. Chest x-ray shows evidence of diffuse interstitial edema which appears chronic in nature, also noted to have bibasilar atelectasis. Patient does not have leukocytosis or fever, low suspicion for superimposed pneumonia. COVID-19 testing is negative. Given the patient's comorbidities and hypoxia on his baseline oxygen I do feel that he needs to be admitted to the hospital. He was also given additional 20 of Lasix for diuresis over concern for CHF exacerbation. This is similar to his presentation on recent admission. Case was discussed with the on-call hospitalist for [facility], Dr. Dominguez, patient was admitted in stable condition for further care. * CRITICAL CARE TIME: (35 ) minutes -Stabilization of hypoxia requiring supplemental oxygen above baseline to maintain oxygen saturations greater than 92%, time spent at the bedside, interpretation of diagnostic studies, discussion with other physicians and arrangement of admission Diagnosis: 1. Acute on chronic respiratory failure with hypoxia 2. COPD exacerbation, moderate 3. 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 Underwent procedure without any complications; monitored overnight and discharged home. 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 11/01/18 = widely patent coronary arteries History of cardiac cath SEPTEMBER 2018 AT [facility] NO STENTS History of cataract surgery BILATERAL History of colonoscopy History of tonsillectomy and adenoidectomy History of total left hip replacement Family History Mother Hypertension Brother FHx: myocardial infarction HALF-BROTHER Sister Kidney transplant status Social History Smoking Status: Former smoker Tobacco Type: Cigarettes Years Smoked: 50; Number of Years Since Quit: 3; Second Hand Exposure: No; Hx Alcohol Use: No Hx Substance Use: No Preferred Language: Welsh Communication Ability: Effective Dry Can Tender Required: No Beliefs That Will Affect Care: None marital status: Current Living Situation: Spouse Current Living Situation Comment: Jelly current occupational status: retired How many Children do You have: 3 Feels Safe at Home: Yes Assistive Devices: Hearing Aid - Bilateral and Oxygen - Continuous Allergies Allergies Allergy/AdvReac Type Severity Reaction Status Date / Time No Known Allergies Allergy Unknown Verified 11/08/21 02:57 Home Meds Home Medications Medication Instructions Recorded Confirmed aspirin 81 mg tablet,delayed 81 mg PO QAM 10/27/18 11/08/21 release mirtazapine 45 mg tablet 45 mg PO HS 10/27/18 11/08/21 finasteride 5 mg tablet 5 mg PO HS 07/31/19 11/08/21 tamsulosin 0.4 mg capsule 0.4 mg PO DAILY 06/23/21 11/08/21 Previous Rx's Medication Instructions Recorded amiodarone 200 mg tablet 100 mg PO QAM #0 tabs 08/11/19 acetaminophen 325 mg tablet 650 mg PO Q4H PRN fever or pain 06/25/21 #90 tabs furosemide 40 mg tablet 40 mg PO QAM #30 tabs 11/15/21 isosorbide dinitrate 5 mg tablet 5 mg PO BID #60 tabs 11/15/21 potassium chloride 20 mEq oral 20 meq PO DAILY #30 ea 11/15/21 packet Results & Data (ED) Vital Signs Vital Signs - 24 hr 12/13/21 03:05 12/13/21 03:05 12/13/21 03:16 Temperature 36.4 C L Temperature Source Oral Pulse Rate 81 Respiratory Rate 24 Blood Pressure 141/72 H Blood Pressure Mean 95 Pulse Oximetry 99 99 99 Oxygen Delivery Method Nasal Cannula Nasal Cannula Nasal Cannula Oxygen Flow Rate 6 6 6 Sepsis Recent Fever Within 48 Hours No Sepsis New/Unexplained Change in Mental Status N/A Sepsis Action Taken by Nursing No Action Required Oxygen Flow Rate - Titration Pulse Oximetry Post Tiitration 12/13/21 03:36 12/13/21 04:00 Temperature Temperature Source Pulse Rate Respiratory Rate Blood Pressure Blood Pressure Mean Pulse Oximetry 99 98 Oxygen Delivery Method Nasal Cannula Nasal Cannula Oxygen Flow Rate 6 4 Sepsis Recent Fever Within 48 Hours Sepsis New/Unexplained Change in Mental Status Sepsis Action Taken by Nursing Oxygen Flow Rate - Titration 4 2 Pulse Oximetry Post Tiitration 99 96 Laboratory Data Result diagrams: 12/13/21 02:45 12/13/21 02:45 Lab Results 12/13/21 12/13/21 12/13/21 Range/Units 02:45 02:45 02:45 WBC 7.15 (4.8-10.8) K/ul RBC 3.33 L (4.63-6.08) M/uL Hgb 11.1 L (14.0-18.0) g/dl Hct 34.0 L (40.1-51.0) % MCV 102.1 H (80.0-100.0) fL MCH 33.3 (25.0-34.0) pg MCHC 32.6 (32.0-36.0) g/dL RDW Std Deviation 46.5 H (36.4-46.3) fL RDW Coeff of Ty 12.4 (11.5-14.5) % Plt Count 176 (130-400) K/uL MPV 11.8 (9.4-12.4) fL Immature Gran % (Auto) 0.4 % Neut % (Auto) 60.1 % Lymph % (Auto) 29.0 % Kidder % (Auto) 6.4 % Eos % (Auto) 3.1 % Baso % (Auto) 1.0 % Neut # (Auto) 4.30 (1.4-6.5) K/uL Lymph # (Auto) 2.07 (1.2-3.4) K/uL Kidder # (Auto) 0.46 (0.24-0.82) K/uL Eos # (Auto) 0.22 (0-0.50) K/uL Baso # (Auto) 0.07 (0-0.2) K/uL Immature Gran # (Auto) 0.03 H (0.00-0.02) K/uL PT 11.0 (9.0-12.0) Seconds INR 1.0 (0.9-1.1) VBG pH (7.36-7.41) VBG pCO2 (38-50) mmHg VBG pO2 mmHg VBG HCO3 mmol/L VBG O2 Saturation % VBG Base Excess mEq/L Sodium 138 (136-145) mmol/L Potassium 3.9 (3.5-5.1) mmol/L Chloride 103 (98-107) mmol/L Carbon Dioxide 26 (21-32) mmol/L Anion Gap 9 (3-11) BUN 18 (6-23) mg/dl Creatinine 1.47 H (0.6-1.4) mg/dl Est Cr Clr Drug Dosing 30.0 ml/min Est GFR ( Amer) 49.7 ml/min Est GFR (Non-Af Amer) 42.9 ml/min BUN/Creatinine Ratio 12.2 (10-20) Glucose 120 H (70-99(Fasting)) mg/dl Calcium 8.7 (8.5-10.1) mg/dl Total Bilirubin 0.6 (0.2-1.0) mg/dl AST 16 (13-39) U/L ALT 10 (7-52) U/L Alkaline Phosphatase 61 (34-104) U/L Troponin I High Sens 30.4 H (0-20) pg/ml Total Protein 7.0 (6.0-8.3) gm/dl Albumin 3.6 (3.4-5.0) gm/dl Globulin 3.4 (2.5-4.0) gm/dl Albumin/Globulin Ratio 1.1 (0.9-2) Lipase 16 (11-82) U/L SARS-CoV-2 (PCR) (Negative) Influenza Type A (PCR) (Neg) Influenza Type B (PCR) (Neg) RSV (RT-PCR) (Neg) 12/13/21 12/13/21 Range/Units 03:20 03:36 WBC (4.8-10.8) K/ul RBC (4.63-6.08) M/uL Hgb (14.0-18.0) g/dl Hct (40.1-51.0) % MCV (80.0-100.0) fL MCH (25.0-34.0) pg MCHC (32.0-36.0) g/dL RDW Std Deviation (36.4-46.3) fL RDW Coeff of Ty (11.5-14.5) % Plt Count (130-400) K/uL MPV (9.4-12.4) fL Immature Gran % (Auto) % Neut % (Auto) % Lymph % (Auto) % Kidder % (Auto) % Eos % (Auto) % Baso % (Auto) % Neut # (Auto) (1.4-6.5) K/uL Lymph # (Auto) (1.2-3.4) K/uL Kidder # (Auto) (0.24-0.82) K/uL Eos # (Auto) (0-0.50) K/uL Baso # (Auto) (0-0.2) K/uL Immature Gran # (Auto) (0.00-0.02) K/uL PT (9.0-12.0) Seconds INR (0.9-1.1) VBG pH 7.36 (7.36-7.41) VBG pCO2 53 H (38-50) mmHg VBG pO2 32 mmHg VBG HCO3 30 mmol/L VBG O2 Saturation < 60.0 % VBG Base Excess 3.2 mEq/L Sodium (136-145) mmol/L Potassium (3.5-5.1) mmol/L Chloride (98-107) mmol/L Carbon Dioxide (21-32) mmol/L Anion Gap (3-11) BUN (6-23) mg/dl Creatinine (0.6-1.4) mg/dl Est Cr Clr Drug Dosing ml/min Est GFR ( Amer) ml/min Est GFR (Non-Af Amer) ml/min BUN/Creatinine Ratio (10-20) Glucose (70-99(Fasting)) mg/dl Calcium (8.5-10.1) mg/dl Total Bilirubin (0.2-1.0) mg/dl AST (13-39) U/L ALT (7-52) U/L Alkaline Phosphatase (34-104) U/L Troponin I High Sens (0-20) pg/ml Total Protein (6.0-8.3) gm/dl Albumin (3.4-5.0) gm/dl Globulin (2.5-4.0) gm/dl Albumin/Globulin Ratio (0.9-2) Lipase (11-82) U/L SARS-CoV-2 (PCR) NEGATIVE (Negative) Influenza Type A (PCR) Negative (Neg) Influenza Type B (PCR) Negative (Neg) RSV (RT-PCR) Negative (Neg) Administered Medications Discontinued Medications Albuterol (Albut/Ipratrop 3mg/0.5mg Neb 3 Ml Vial) 3 ml NEB NOW STA; Protocol Stop: 12/13/21 03:07 Last Admin: 12/13/21 03:28 Dose: Not Given Documented By: AN Furosemide (Furosemide Inj 20 Mg/2 Ml Vial) 20 mg IV ONE ONE Stop: 12/13/21 03:48 Last Admin: 12/13/21 03:56 Dose: 20 mg Documented By: AN Methylprednisolone (Methylprednisolone 125 Mg/2 Ml Vial) 125 mg IV NOW STA Stop: 12/13/21 03:07 Last Admin: 12/13/21 03:28 Dose: Not Given Documented By: AN Discharge Plan Visit Data Chief Complaint: Shortness of Breath/Dyspnea Stated Complaint: DIFFICULTY BREATHING ED Provider: Justin Cohn Discharge Problem: Hypoxia Patient Disposition: Admitted As Inpatient Forms Stand Alone Forms: [facility] Prescriptions Prescriptions: No Action aspirin 81 mg Tablet,Delayed Release (Dr/Ec) 81 mg PO QAM mirtazapine 45 mg tablet 45 mg PO HS finasteride 5 mg tablet 5 mg PO HS amiodarone 200 mg tablet 100 mg PO QAM Qty: 0 0RF tamsulosin 0.4 mg capsule 0.4 mg PO DAILY acetaminophen 325 mg Tablet 650 mg PO Q4H PRN (Reason: fever or pain) Qty: 90 0RF isosorbide dinitrate 5 mg Tablet 5 mg PO BID Qty: 60 0RF furosemide 40 mg Tablet 40 mg PO QAM Qty: 30 0RF potassium chloride 20 mEq Packet 20 meq PO DAILY Qty: 30 0RF Referrals Referrals: Taylor Lopez DO [Primary Care Provider] -
[2021-12-13 03:16] LABS: Basophils # (auto) 0.07 K/uL (0-0.2); Eosinophils # (auto) 0.22 K/uL (0-0.50); Eosinophils % (auto) 3.1 %; Hemoglobin 11.1 g/dl (14.0-18.0); Immature Granulocytes # (auto) 0.03 K/uL (0.00-0.02); Immature Granulocytes % (auto) 0.4 %; Lymphocytes # (auto) 2.07 K/uL (1.2-3.4); Mean Corpuscular Hemoglobin 33.3 pg (25.0-34.0); Mean Corpuscular Hgb Conc 32.6 g/dL (32.0-36.0); Mean Corpuscular Volume 102.1 fL (80.0-100.0); Mean Platelet Volume 11.8 fL (9.4-12.4); Monocytes # (auto) 0.46 K/uL (0.24-0.82); Monocytes % (auto) 6.4 %; Neutrophils % (auto) 60.1 %; Platelet Count 176 K/uL (130-400); RDW Coefficient of Variation 12.4 % (11.5-14.5); RDW Standard Deviation 46.5 fL (36.4-46.3); Red Blood Count 3.33 M/uL (4.63-6.08); White Blood Count 7.15 K/ul (4.8-10.8)
[2021-12-13 03:42] LABS: Base Excess VBG 3.2 mEq/L; HCO3 VBG 30 mmol/L; Oxygen Saturation VBG < 60.0 %; PCO2 VBG 53 mmHg (38-50); PO2 VBG 32 mmHg; pH VBG 7.36 (7.36-7.41)
[2021-12-13 03:42] LABS: Troponin I High Sensitivity 30.4 pg/ml (0-20)
[2021-12-13 03:45] LABS: Albumin Globulin Ratio 1.1 (0.9-2); Albumin Level 3.6 gm/dl (3.4-5.0); BUN Creatinine Ratio 12.2 (10-20); Bilirubin,Total 0.6 mg/dl (0.2-1.0); Calcium 8.7 mg/dl (8.5-10.1); Est GFR (African American) 49.7 ml/min; Est GFR (Non-African American) 42.9 ml/min; Globulin 3.4 gm/dl (2.5-4.0); Potassium 3.9 mmol/L (3.5-5.1)
[2021-12-13] MEDS ORDERED: FUROSEMIDE INJ 20 MG/2 ML VIAL IV ONE (03:47)
[2021-12-13 04:11] LABS: Influenza A virus by PCR Negative (Neg); Influenza B virus by PCR Negative (Neg); RSV by PCR Negative (Neg); SARS CoV2 RNA(COVID-19) InHosp NEGATIVE (Negative)
[2021-12-13] MEDS ORDERED: LEVALBUTEROL HCL 1.25 MG/3 ML NEB NEB PRN (07:39)
[2021-12-13] MEDS ORDERED: NITROGLYCERIN SL 0.4 MG/TAB TAB SL PRN (07:39)
[2021-12-13] MEDS ORDERED: POLYETHYLENE (MIRALAX) 17 GM PACK PO PRN (07:39)
[2021-12-13] MEDS ORDERED: ACETAMINOPHEN 325 MG TAB PO PRN (07:39)
[2021-12-13] MEDS ORDERED: XOPENEX/ATROVENT 1.25mg/0.5MG NEB COMBO NEB SCH (07:39)
--- NOTE | 2021-12-13 07:44 | XRay Report ---
XR chest 1V portable CLINICAL HISTORY: Chest Pain TECHNIQUE: Single frontal radiograph of the chest was obtained. Comparison: Comparison is made to chest radiograph 11/10/[address] chest 11/08/2021 FINDINGS: No lines and tubes are seen. Cardiomegaly is noted. There is prominence and cephalization of the vasc ulature with Muriel B lines seen. Small to moderate bilateral pleural effusions are seen, minimally i mproved from prior exam. There are bilateral lower lung airspace opacities. IMPRESSION: 1. Cardiomegaly and moderate pulmonary edema. 2. Bilateral small to moderate pleural effusions with underlying atelectasis, minimally improved fro m prior exam. ACT 112: Negative or not required by law. Electronically signed by: Rajat Joyner M.D. 12/13/2021 7:42 AM
[2021-12-13] MEDS: LEVALBUTEROL 1.25MG/0.5ML NEB INH SCH ×3 (07:57→19:44)
[2021-12-13] MEDS: IPRATROPIUM BROMIDE NEB SOLN 0.02% 2.5 ML VIAL INH SCH ×3 (07:57→19:44)
--- NOTE | 2021-12-13 08:01 | Pulmonary Consultation ---
Date of Consultation December 13, 2021 Assessment & Plan (1) COPD (chronic obstructive pulmonary disease): COPD type: COPD with acute exacerbation Qualified Code(s): J44.1 - Chronic obstructive pulmonary disease with (acute) exacerbation (2) Acute on chronic HFrEF (heart failure with reduced ejection fraction): (3) Chronic respiratory failure with hypoxia: (4) Pleural effusion: (5) Pulmonary hypertension: Plan Chest x-ray 2021 personally reviewed: Portable film, bilateral costophrenic and cardiophrenic angles are blunted, haziness appreciated bilateral lower lobes CT chest from October 2021 personally reviewed: Moderate-sized bilateral pleural effusion, cardiomegaly, centrilobular emphysema. No significant mediastinal lymphadenopathy --Bilateral pleural effusion Likely secondary to systolic CHF with EF 15-20% Patient has had chronic bilateral pleural effusion. Saturating well on 2 L nasal cannula which he is on at home. --COPD with emphysema Not on any inhalers at home Start the patient on Anoro --Chronic hypoxic respiratory failure Likely combination of chronic systolic CHF along with COPD Continue with O2 supplementation to keep ox saturation between 88-92% --Pulmonary hypertension Type II Diuresis as per the primary team Plan: Patient is saturating 95% on 2 L nasal cannula, not in any acute distress No indication for thoracentesis right now. Although I did discuss the possibility of thoracentesis in future. He is not interested right now. But he will keep in mind and let us know if he does not respond to diuresis Would recommend to do aggressive diuresis to keep the patient at least -1 L in 24-hour. I will start the patient on Anoro to be used on a daily basis DC Solu-Medrol. BiPAP will be beneficial Overall prognosis of the patient is not good, recommend goals of care discussion with the patient as well as the family Pulmonary will continue to follow Please note the above document was generated using voice recognition software. It may contain grammatical, syntax or spelling errors.Any formal questions or concerns about the content, text or information contained within the body of this dictation should be directly addressed to the provider for clarification. History of Present Illness Attending Physician: Mukul Caceres MD History of Present Illness 86-year-old male came to the ER with complaints of shortness of breath Past medical history: Systolic CHF, COPD on 2 L oxygen at home, LABA to branch block, dyslipidemia, BPH, CKD At the time of examination patient was saturating 95% on 2 L nasal cannula. He was not in any respiratory distress. He has been saying that since last week or so he has been having worsening shortness of breath. Is unable to lay flat. Denies any fever or chills. Denies any coughing. No headache, no dizziness, no blurry vision. Patient was recently admitted to the hospital last week of October for acute on chronic systolic CHF. He had bilateral pleural effusion even at that time. Social history: Ex-smoker, quit in 2019. [id number] smoking history Allergies Allergy/AdvReac Type Severity Reaction Status Date / Time No Known Allergies Allergy Unknown Verified 11/08/21 02:57 Home Medications Medication Instructions Recorded Confirmed Type aspirin 81 mg tablet,delayed 81 mg PO QAM 10/27/18 11/08/21 History release mirtazapine 45 mg tablet 22.5 mg PO HS 10/27/18 11/08/21 History finasteride 5 mg tablet 5 mg PO HS 07/31/19 11/08/21 History amiodarone 200 mg tablet 100 mg PO QAM #0 tabs 08/11/19 11/08/21 Rx tamsulosin 0.4 mg capsule 0.4 mg PO DAILY 06/23/21 11/08/21 History acetaminophen 325 mg tablet 650 mg PO Q4H PRN fever or pain 06/25/21 11/08/21 Rx #90 tabs isosorbide dinitrate 5 mg tablet 5 mg PO BID #60 tabs 11/15/21 Rx furosemide 20 mg tablet 20 mg PO DAILY 12/13/21 12/13/21 History potassium chloride 20 mEq oral 10 meq PO DAILY 12/13/21 History packet Patient History Medical History (Updated 12/13/21 @ 12:56 by Joseph Garibay MD) 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 Underwent procedure without any complications; monitored overnight and discharged home. 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 11/01/18 = widely patent coronary arteries History of cardiac cath SEPTEMBER 2018 AT [facility] NO STENTS History of cataract surgery BILATERAL History of colonoscopy History of tonsillectomy and adenoidectomy History of total left hip replacement Family History Mother Hypertension Brother FHx: myocardial infarction HALF-BROTHER Sister Kidney transplant status Social History Smoking Status: Never smoker Tobacco Type: Cigarettes Years Smoked: 50; Number of Years Since Quit: 3; Second Hand Exposure: No; Do You Dip or Chew Tobacco: No; Hx Alcohol Use: No Hx Substance Use: No Preferred Language: Iraqi Communication Ability: Effective Communication Ability Comment: Hearing impairment Senior Data Integration Developer Required: No Beliefs That Will Affect Care: None marital status: Current Living Situation: Family Current Living Situation Comment: UNABLE TO CONFIRM AT THIS TIME current occupational status: retired How many Children do You have: 3 Feels Safe at Home: Yes Safety Concerns: Feels Safe At This Time and Afraid for Self Assistive Devices: Oxygen - Continuous Review of Systems Review of Systems: All systems reviewed & are unremarkable except as noted in HPI & below Physical Exam Physical Exam: Constitutional: No acute distress, frail-appearing HEENT: EOMI, PERRLA Respiratory system: Decreased air entry bilaterally, no wheeze, rhonchi, positive crackles bilateral lower lobes CVS: S1-S2 positive, no murmurs or gallops Abdomen: Soft, nontender, nondistended, positive bowel sounds x4 Extremities: +2 pulses bilaterally radialis/ dorsalis pedis, no cyanosis, no edema Neuro: Awake alert oriented x3 Psych: Normal mood and affect G/U: No Hill Skin: no rashes, warm and dry Lymphatic: no cervical or axillary lymphadenopathy Results & Data Results & Data ([facility]) Vital Signs (Past 12 Hours) Vital Signs Temp Pulse Pulse Resp BP BP Pulse Ox 12/13/21 07:55 79 30 H 98 12/13/21 07:43 12/13/21 07:20 85 20 94 12/13/21 07:10 74 19 98 12/13/21 07:00 78 19 97 12/13/21 07:00 140/72 12/13/21 06:00 66 16 130/60 97 12/13/21 05:00 68 20 104/84 96 12/13/21 04:00 98 12/13/21 03:36 99 12/13/21 03:16 99 12/13/21 03:05 99 12/13/21 03:05 36.4 C L 81 24 141/72 H 99 Pulse Ox O2 Del Method O2 Del Method O2 Flow Rate O2 Flow Rate 12/13/21 07:55 Nasal Cannula 2 12/13/21 07:43 98 Nasal Cannula 2 12/13/21 07:20 Nasal Cannula 2 12/13/21 07:10 Nasal Cannula 2 12/13/21 07:00 Nasal Cannula 2 12/13/21 07:00 12/13/21 06:00 Nasal Cannula 2 12/13/21 05:00 Room Air 12/13/21 04:00 Nasal Cannula 4 12/13/21 03:36 Nasal Cannula 6 12/13/21 03:16 Nasal Cannula 6 12/13/21 03:05 Nasal Cannula 6 12/13/21 03:05 Nasal Cannula 6 Laboratory Results 12/13/21 02:45 12/13/21 02:45 PG Care Time/CCT Total # of Minutes Spent Total Time Spent with Patient: Total time spent is greater than 50% in coordination of care (as documented) at patient's floor/unit and/or counseling patient: Coding Level of Care Code 49164 Initial Inpt Care Lvl 3 Diagnoses COPD (chronic obstructive pulmonary disease) J44.1 COPD type: COPD with acute exacerbation Acute on chronic HFrEF (heart failure with reduced ejection fraction) I50.23 Chronic respiratory failure with hypoxia J96.11 Pleural effusion J90 Pulmonary hypertension I27.20
--- NOTE | 2021-12-13 08:37 | Cardiology Consultation ---
Date of Consultation December 13, 2021 Assessment & Plan (1) Nonischemic cardiomyopathy: (2) Acute on chronic HFrEF (heart failure with reduced ejection fraction): (3) Pleural effusion: (4) COPD (chronic obstructive pulmonary disease): (5) Acute exacerbation of chronic obstructive pulmonary disease: Plan Complex cachectic 86-year-old male with history of nonischemic cardiomyopathy initially diagnosed in 2008 as well as end-stage systolic CHF, NYHA class IV. Previously had a BiV ICD which was extracted due to infection. Patient admitted with shortness of breath, found to be in acute on chronic CHF with acute on chronic hypoxic respiratory failure. Symptoms improving with IV Lasix. Chest x-ray showing bilateral pleural effusions. Weight up approximately 10 pounds from last admission. SPO2 98%, back on his baseline 2 L nasal cannula. Seen by pulmonary recommended refraining from thoracentesis and proceed with aggressive IV diuresis. High-sensitivity troponins mildly elevated but flat, likely due to acute on chronic CHF (stable from prior admission), unlikely to be related to ACS. #1 increase Lasix to 20 mg IV twice daily #2 continue to monitor renal function daily. Potassium goal of 4.0 and magnesium goal of 2.0, replete as needed. #3 strict I&O's, daily weights. 2 g sodium diet. #4 continue medications as ordered including amiodarone 100 mg daily (due to hx of NS-VT) and isosorbide dinitrate 5 mg twice daily. Continue ASA 81 mg daily. #5 goals of care should be rediscussed with patient, patient was previously on hospice. Case discussed with Dr. Ba- kavitha follow. Supervising Physician Co-Signing Physician Notes Patient was seen and personally examined. History and ongoing issues outlined in detail as above. Patient is a complex 86-year-old male with known nonischemic cardiomyopathy with class IV congestive heart failure who presents now with acute on chronic decompensated systolic heart failure manifesting with dyspnea, hypoxia and chest x-ray findings of pulmonary edema and bilateral pleural effusions. Plan and recommendations as above Overall prognosis limited History of Present Illness Reason for Consultation: Shortness of breath Requesting Physician: Dieudonne Castro Attending Physician: Mukul Caceres MD History of Present Illness Medically complex 86 year old male. Presented to ED due to shortness of breath x1 week. Notes difficulties performing his ADLs and doing minor house chores due to the worsening shortness of breath. Denied any fluid retention/lower extremity edema. +Orthopnea towards the end of the week. When he was short of breath he also noted some palpitations. Carries a history of COPD on chronic supplemental o2 therapy (2L). Also has known NICM with severely reduced LV systolic function 15-20%. Noted to be on Hospice in the past. Was recently admitted in October for hypoxia and acute on chronic HF. Was treated with supplemental o2 and IV Lasix, dc'd home on Lasix 40 mg daily. Of note, La six was reduced by PCP on 11/26 due to slight decline in renal function (reduced to 20 mg daily). Lives at home alone with his . Family is close by. CXR showed moderate pulmonary edema and BL small to moderate Pleural effusions COVID negative EKG: SR LBBB with PVCs, 81 bpm. Lab work remarkable for: Scr 1.47 (baseline 1.2-1.4), HS troponin 30.4 (prior admission 29-30) Was give 20 mg of IV Lasix This admission: See by Pulmonary this am. Recommended IV diuresis over thoracentesis at this time. Upon entrance into the room patient resting in bed. Woke easily. Denied any acute concerns. Since receiving IV Lasix he notes that his shortness of breath has improved and almost to baseline. No chest pain, dizziness, of nausea. Patient is [place]. Tele: SR with Frequent PVCs I&O: -900 mL Weight: 57.7 kg ( dc weight 11/15: 52 kg) November 08, 2021 TTE Interpretation Summary ([facility], Dr. Ba): Mildly dilated LV. Mild concentric LVH. Severe global hypokinesis of the LV. Septal motion consistent with conduction abnormality. EF 15-20%. Moderately dilated LA. Moderate aortic sclerosis without significant stenosis. Moderate to severe mitral regurgitation. Mild TR. RVSP 50-60mmHg. Moderate sized left pleural effusion. Past Medical and Surgical History: End stage nonischemic cardiomyopathy Nonobstructive coronary artery disease cardiac catheterization 2005, 2018 NYHA Class IV History of nonsustained ventricular tachycardia, controlled on low dose amiodarone History of biventricular pacemaker/AICD pocket infection and subsequent extraction of device GDMT limited by symptomatic orthostatic hypotension Chronic kidney disease stage III COPD with chronic hypoxemia, 2 L/min via nasal cannula Pulmonary nodules Hypertension Dyslipidemia Malnutrition BPH Depression History of tobacco use History of alcohol abuse. T/A as a child Appendectomy Left hip replacement. Colonic polyps Allergies Allergy/AdvReac Type Severity Reaction Status Date / Time No Known Allergies Allergy Unknown Verified 11/08/21 02:57 Home Medications Medication Instructions Recorded Confirmed Type aspirin 81 mg tablet,delayed 81 mg PO QAM 10/27/18 11/08/21 History release mirtazapine 45 mg tablet 22.5 mg PO HS 10/27/18 11/08/21 History finasteride 5 mg tablet 5 mg PO HS 07/31/19 11/08/21 History amiodarone 200 mg tablet 100 mg PO QAM #0 tabs 08/11/19 11/08/21 Rx tamsulosin 0.4 mg capsule 0.4 mg PO DAILY 06/23/21 11/08/21 History acetaminophen 325 mg tablet 650 mg PO Q4H PRN fever or pain 06/25/21 11/08/21 Rx #90 tabs isosorbide dinitrate 5 mg tablet 5 mg PO BID #60 tabs 11/15/21 Rx furosemide 20 mg tablet 20 mg PO DAILY 12/13/21 12/13/21 History potassium chloride 20 mEq oral 10 meq PO DAILY 12/13/21 History packet Patient History Medical History (Updated 12/13/21 @ 04:36 by Justin Cohn DO) 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 Underwent procedure without any complications; monitored overnight and discharged home. 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 11/01/18 = widely patent coronary arteries History of cardiac cath SEPTEMBER 2018 AT [facility] NO STENTS History of cataract surgery BILATERAL History of colonoscopy History of tonsillectomy and adenoidectomy History of total left hip replacement Family History Mother Hypertension Brother FHx: myocardial infarction HALF-BROTHER Sister Kidney transplant status Social History Smoking Status: Former smoker Tobacco Type: Cigarettes Years Smoked: 50; Number of Years Since Quit: 3; Second Hand Exposure: No; Hx Alcohol Use: No Hx Substance Use: No Preferred Language: Icelandic Communication Ability: Effective Engineering Lab Technician Required: No Beliefs That Will Affect Care: None marital status: Current Living Situation: Spouse Current Living Situation Comment: [employer] current occupational status: retired How many Children do You have: 3 Feels Safe at Home: Yes Assistive Devices: Hearing Aid - Bilateral and Oxygen - Continuous Review of Systems Review of Systems: All systems reviewed & are unremarkable except as noted in HPI & below Physical Exam Constitutional: + cachectic; no acute distress Eyes: + eyelid abnormality (left eye lid red) and PERRL ENMT: external ear and nose normal, oropharynx normal Ears: + hearing impairment (hearing aids) Neck: normal visual inspection and trachea midline Respiratory: normal respiratory effort; no respiratory distress and no cough Auscultation: + diminished lung sounds (BL bases) and + crackles (BL); no rhonchi and no wheezes Cardiovascular: Rate/Rhythm: regular rate and regular rhythm Heart Sounds: normal S1, normal S2 and + murmur (+ soft apical systolic murmur ) Vessels: no JVD Extremities: no edema Occasional ectopy auscultated. Gastrointestinal (Abdomen): normal bowel sounds, soft, nontender, no hepatosplenomegaly Skin: no rashes, warm and dry Psychiatric: A+Ox3, euthymic affect Results & Data ([facility]) Vital Signs (Past 12 Hours) Vital Signs Temp Pulse Pulse Resp BP BP Pulse Ox 12/13/21 07:55 79 30 H 98 12/13/21 07:43 12/13/21 07:20 85 20 94 12/13/21 07:10 74 19 98 12/13/21 07:00 78 19 97 12/13/21 07:00 140/72 12/13/21 06:00 66 16 130/60 97 12/13/21 05:00 68 20 104/84 96 12/13/21 04:00 98 12/13/21 03:36 99 12/13/21 03:16 99 12/13/21 03:05 99 12/13/21 03:05 36.4 C L 81 24 141/72 H 99 Pulse Ox O2 Del Method O2 Del Method O2 Flow Rate O2 Flow Rate 12/13/21 07:55 Nasal Cannula 2 12/13/21 07:43 98 Nasal Cannula 2 12/13/21 07:20 Nasal Cannula 2 12/13/21 07:10 Nasal Cannula 2 12/13/21 07:00 Nasal Cannula 2 12/13/21 07:00 12/13/21 06:00 Nasal Cannula 2 12/13/21 05:00 Room Air 12/13/21 04:00 Nasal Cannula 4 12/13/21 03:36 Nasal Cannula 6 12/13/21 03:16 Nasal Cannula 6 12/13/21 03:05 Nasal Cannula 6 12/13/21 03:05 Nasal Cannula 6 Laboratory Results Cardiac Enzymes 12/13/21 12/13/21 Range/Units 02:45 08:26 AST 16 (13-39) U/L Troponin I High Sens 30.4 H 44.0 H D (0-20) pg/ml Coagulation 12/13/21 Range/Units 02:45 PT 11.0 (9.0-12.0) Seconds CBC 12/13/21 Range/Units 02:45 WBC 7.15 (4.8-10.8) K/ul RBC 3.33 L (4.63-6.08) M/uL Hgb 11.1 L (14.0-18.0) g/dl Hct 34.0 L (40.1-51.0) % Plt Count 176 (130-400) K/uL Neut # (Auto) 4.30 (1.4-6.5) K/uL Lymph # (Auto) 2.07 (1.2-3.4) K/uL [place] # (Auto) 0.46 (0.24-0.82) K/uL Eos # (Auto) 0.22 (0-0.50) K/uL Baso # (Auto) 0.07 (0-0.2) K/uL Comprehensive Metabolic Panel 12/13/21 Range/Units 02:45 Sodium 138 (136-145) mmol/L Potassium 3.9 (3.5-5.1) mmol/L Chloride 103 (98-107) mmol/L Carbon Dioxide 26 (21-32) mmol/L BUN 18 (6-23) mg/dl Creatinine 1.47 H (0.6-1.4) mg/dl Glucose 120 H (70-99(Fasting)) mg/dl Calcium 8.7 (8.5-10.1) mg/dl AST 16 (13-39) U/L ALT 10 (7-52) U/L Alkaline Phosphatase 61 (34-104) U/L Total Protein 7.0 (6.0-8.3) gm/dl Albumin 3.6 (3.4-5.0) gm/dl Intake and Output 12/12/21 12/13/21 12/13/21 22:59 06:59 14:59 Output Total 550 / 550 350 / 350 Balance -550 / -550 -350 / -350 Output: Urine 550 / 550 350 / 350 Other: Weight 57.7 kg Weight Measurement Method Built in [facility] (1) COPD (chronic obstructive pulmonary disease) COPD type: COPD with acute exacerbation Qualified Code(s): J44.1 - Chronic obstructive pulmonary disease with (acute) exacerbation
[2021-12-13] MEDS: AMIODARONE 200 MG TAB PO SCH (08:43)
[2021-12-13] MEDS: ERYTHROMYCIN OP OINT 5 MG/GM 3.5 GM TUBE OP SCH ×4 (08:44→20:05)
[2021-12-13] MEDS: ASPIRIN 81 MG ECTAB PO SCH (08:44)
[2021-12-13] MEDS: ISOSORBIDE DINITRATE 5 MG TAB PO SCH ×2 (08:45→15:07)
[2021-12-13] MEDS: HEPARIN SOD 5,000 UNIT/0.5 ML VIAL SQ SCH ×2 (08:45→20:05)
[2021-12-13] MEDS: TAMSULOSIN HCL 0.4 MG CAP PO SCH (08:45)
[2021-12-13] MEDS ORDERED: methylPREDNISolone 40 MG in SYRINGE 0 ML IV SCH (09:00)
[2021-12-13] MEDS ORDERED: FUROSEMIDE INJ 20 MG/2 ML VIAL IV SCH (09:00)
--- NOTE | 2021-12-13 09:06 | History and Physical Report ---
DATE OF ADMISSION: 12/13/2021. CHIEF COMPLAINT: Shortness of breath. HISTORY OF PRESENT ILLNESS: An 86-year-old male with past medical history significant for COPD, chronic respiratory failure, on 2 liters oxygen at home, chronic systolic CHF, left bundle-branch block, hypertension, history of pulmonary nodules, hyperlipidemia, history of nonsustained V-tach, severe malnutrition, BPH, chronic kidney disease stage III, depression, tobacco use disorder, who lives at home with his , presents with shortness of breath. The patient recently in the hospital for [id number] systolic CHF and COPD exacerbation, echo done on 11/08/2021 showed EF of 15-20%. Right ventricular systolic pressure is elevated at 50-60 mmHg. He was discharged on Lasix 40 mg daily. He was seen by cardiology and also palliative care, but he wanted to be full code. Around first week of November, Lasix was decreased from 40 to 20 mg daily, and also his potassium was decreased from 20 mEq to 10 mEq as his creatinine was increased to 1.7, BUN to 35 and blood pressure low. Last night he suddenly became short of breath. As per the EMS, the patient was saturating 85% on his 2 L nasal cannula, and with increase to 6 liters, saturation improved. Currently on 4 liters, he is saturating okay. Resting comfortably, hemodynamically stable. He says he has cough with whitish and yellowish phlegm. Denies any fever or chills. Denies any chest pain. No nausea, no vomiting. Denies any aspiration. No abdominal pain. Normal bowel and bladder movements. Denies any headache. No blurred visions, no runny nose, no sore throat. Denies any fevers. Appetite is okay. He says he ambulates without support. Lives with his and he gets Meals on Wheels. He was on home hospice in 2019, but later discontinued because he was doing okay. Last admission, amlodipine was stopped and he was placed on Isordil and Lasix. ALLERGIES: No known drug allergies. PAST MEDICAL HISTORY: As mentioned above. PAST SURGICAL HISTORY: Left heart catheterization, colonoscopy, colonoscopy with biopsy, appendectomy, cataract surgery, tonsillectomy, adenoidectomy, hip replacement, AICD placement. MEDICATIONS: Currently, the patient is on Tylenol 325 mg p.r.n., amiodarone 100 mg p.o. daily, aspirin 81 mg p.o. daily, finasteride 5 mg p.o. daily, Lasix 20 mg p.o. daily, isosorbide dinitrate 5 mg p.o. b.i.d., mirtazapine 45 mg half tablet daily, potassium chloride 10 mEq p.o. daily. FAMILY HISTORY: Significant for mother has hypertension, uncle has stroke. SOCIAL HISTORY: , former smoker, quit in 2019, smoked 1 pack a day for 44 years. Alcohol, quit in 1967. No drug use. REVIEW OF SYSTEMS: As per HPI. Rest of review of systems is negative. PHYSICAL EXAMINATION: GENERAL: The patient is old and frail old and frail, not in acute distress. VITAL SIGNS: Temperature 36.4, pulse 68, respiratory rate 20, blood pressure 104/84, oxygen 96% on room air. HEENT: Pupils equal, round and reactive to light. Oral mucosa moist. NECK: No JVD, no neck masses. CARDIOVASCULAR: S1 and S2 heard. Regular rate and rhythm. No murmur, no gallop. RESPIRATORY SYSTEM: Normal AP diameter. No accessory muscle use. Diminished bilateral breath sounds. No obvious wheezing or crackles. ABDOMEN: Soft, bowel sounds present, nontender, no distention. CENTRAL NERVOUS SYSTEM: Alert and awake and oriented. Speech is clear. No facial droop. Insight is okay. Obeys simple commands. Moves extremities. EXTREMITIES: No edema, no erythema seen. LABORATORY DATA: WBC 7.15, hemoglobin 11.1, hematocrit 34, platelets 176. PT 11, INR 1. Venous blood gas, pH of 7.36, pCO2 53, bicarbonate 30. Sodium 138, potassium 3.9, chloride 103, bicarb 26, BUN 18, creatinine 1.47, serum glucose 120, calcium 8.7, total bilirubin 0.6, AST 16, ALT 10, alkaline phosphatase 61. Troponin I high sensitivity 30.4 Lipase 62. SARS-CoV-2 PCR negative. Influenza A and B PCR negative. RSV PCR negative. IMAGING DATA: Chest x-ray, again showing some pulmonary congestion, bibasilar possible pleural effusions. EKG: Sinus rhythm with frequent PVCs at a rate of 81, left bundle-branch block, QTc of 501. ASSESSMENT AND PLAN: This is an 86-year-old male who presents with of breath. 1. Shortness of breath: Possible [id number] systolic congestive heart failure, EF of 15- 20%. Has diminished breath sounds and possible chronic obstructive pulmonary disease exacerbation. Received nebs and steroids and a dose of IV Lasix 20 in the ER. We will continue with nebs around the clock and p.r.n., IV Solu-Medrol 40 mg t.i.d., IV Lasix 20 daily, daily weights, I's and O's, closely monitor in the tele floor. Cardiology consult. 2. Possible pleural effusion, recurrent chronic obstructive pulmonary disease exacerbations: We will consult pulmonary. 3. History of nonsustained ventricular tachycardia: On amiodarone. 4. History of benign prostatic hyperplasia: On Flomax and finasteride. 5. History of depression: On Remeron. His home Remeron dose was halved by PCP because the patient wanted to have appetite stimulant 6. History of hypertension: Currently on diuretics and isosorbide dinitrate. 7. History of chronic kidney disease stage III: Presently creatinine of 1.4, close to baseline. Getting diuretics. We will follow the repeat labs. 8. History of left bundle-branch block with severe left ventricular dysfunction: Followup with cardiology. 9. Mild elevation of troponin. Mostly demand ischemia. Will follow repeat troponins. 10. Deep venous thrombosis prophylaxis: Placed on heparin subcutaneous. DISPOSITION: Closely monitor in tele floor. PT/OT prior to discharge. Social service to help with discharge planning. Level 1 full code. Job ID: [id number] MTDD
--- NOTE | 2021-12-13 12:36 | Electrocardiogram Report ---
Test Reason : Blood Pressure : / mmHG Vent. Rate : 081 BPM Atrial Rate : 081 BPM P-R Int : 180 ms QRS Dur : 166 ms QT Int : 432 ms P-R-T Axes : 106 -46 110 degrees QTc Int : 501 ms Sinus rhythm with frequent Premature ventricular complexes Left axis deviation Left bundle branch block Abnormal ECG When compared with ECG of 08-NOV-2021 07:05, No significant change was found Confirmed by Skip Steward ([id number]) on 12/13/2021 12:36:11 PM Referred By: REFERRED SELF Confirmed By:Skip Steward
[2021-12-13] MEDS: UMECLIDINIUM/VILANTEROL 62.5/25MCG 7 PUFFS/INHALER INH SCH (15:53)
[2021-12-13] MEDS: FUROSEMIDE INJ 20 MG/2 ML VIAL IV SCH (17:08)
--- NOTE | 2021-12-13 17:55 | Hospitalist Progress Note ---
Date of Service December 13, 2021 Assessment & Plan (1) Chronic respiratory failure with hypoxia: (2) Dyspnea: (3) Acute on chronic HFrEF (heart failure with reduced ejection fraction): Plan: This is an 86-year-old male who presents with shortness of breath. 1. Shortness of breath: Secondary to [id number] systolic congestive heart failure, EF of 15- 20%. Pl. effusions. Has diminished breath sounds and possible chronic obstructive pulmonary disease exacerbation. Received nebs and steroids and a dose of IV Lasix 20 in the ER. Cardiology and pulmonary medicine consulted Per cardiology, continue Lasix 20 IV twice daily , cont. home meds - isosorbide dinitrate Per pulmonary medicine -continue diuresis, no thoracentesis at this time. Started patient on Anoro due to hx of COPD I's and O's, closely monitor in the tele floor. Palliative medicine also consulted to help address goal of care History of nonsustained ventricular tachycardia: On amiodarone. Benign prostatic hyperplasia: On Flomax and finasteride. Depression: On Remeron. His home Remeron dose was halved by PCP because the patient wanted to have appetite stimulant Hypertension: Currently on diuretics and isosorbide dinitrate - d/t hx of HF, as above. Chronic kidney disease stage III: Presently creatinine of 1.4, close to baseline. Getting diuretics. We will follow the repeat labs. History of left bundle-branch block with severe left ventricular dysfunction: Followup with cardiology. Mild elevation of troponin. Mostly demand ischemia. repeat troponins, cardiology following. DVT prophylaxis: heparin subcutaneous. DISPOSITION: tele floor. PT/OT prior to discharge. Social service to help with discharge planning. CODE: full code. Admission and Anticipated Discharge Date Admission Date: December 13, 2021 Subjective Patient seen in follow-up of shortness of breath, secondary to end-stage heart failure, and COPD Chronically on 2 L of oxygen Cardiology and pulmonary medicine consulted No thoracentesis at this time. Continue IV diuresis, start Anoro. Currently patient is lying in bed, in no acute distress. He is on 2 L of oxygen. Currently denies any chest pain, palpitations, fevers chills. Reports breathing is much better. Review of Systems Review of Systems: All systems reviewed & are unremarkable except as noted in Subjective Physical Exam Physical Exam: GENERAL: thin elderly rail M not in acute distress. HEENT: NC/AT, EOMI, Pupils equal, round and reactive to light. Oral mucosa moist. NECK: No JVD, no neck masses. CARDIOVASCULAR: S1 and S2 heard. Regular rate and rhythm. No murmur, no gallop. RESPIRATORY: Normal AP diameter. No accessory muscle use. Diminished bilateral breath sounds. No obvious wheezing or crackles. ABDOMEN: Soft, bowel sounds present, nontender, no distention. NEURO: Alert and awake and oriented. Speech is clear. No facial droop. Obeys simple commands. Moves extremities. EXTREMITIES: No edema, no erythema seen. Results & Data Results & Data ([facility]) Vital Signs (Past 12 Hours) Vital Signs Temp Pulse Pulse Resp BP BP Pulse Ox 12/13/21 14:30 12/13/21 14:30 36.4 C L 74 18 126/53 L 92 12/13/21 16:04 36.5 C 70 19 102/60 97 12/13/21 15:02 75 12/13/21 13:45 78 20 95 12/13/21 13:42 80 23 12/13/21 13:42 121/60 12/13/21 13:30 78 23 12/13/21 13:15 68 18 97 12/13/21 13:00 69 21 96 12/13/21 13:00 113/69 12/13/21 12:45 69 17 97 12/13/21 12:30 64 22 97 12/13/21 12:30 124/59 L 12/13/21 12:15 96 H 25 H 12/13/21 12:01 70 21 12/13/21 12:01 117/70 12/13/21 12:00 70 18 97 12/13/21 11:45 76 15 12/13/21 11:30 72 22 98 12/13/21 11:30 125/53 L 12/13/21 11:15 73 17 98 12/13/21 11:00 86 24 12/13/21 11:00 138/70 12/13/21 12:48 59 L 18 97 12/13/21 11:46 12/13/21 11:46 67 21 125/53 L 97 12/13/21 10:45 75 19 98 12/13/21 10:31 78 24 98 12/13/21 10:31 131/61 12/13/21 10:30 82 18 12/13/21 10:15 85 25 H 12/13/21 10:00 79 24 98 12/13/21 10:00 107/66 12/13/21 09:45 79 15 96 12/13/21 09:30 85 24 12/13/21 09:30 133/95 12/13/21 09:20 85 17 94 12/13/21 09:10 79 17 96 12/13/21 09:00 81 18 96 12/13/21 09:00 137/61 12/13/21 08:50 79 20 97 12/13/21 09:19 12/13/21 08:40 88 17 96 12/13/21 08:31 120/67 12/13/21 08:31 90 22 12/13/21 08:30 88 24 12/13/21 08:20 90 24 12/13/21 08:10 84 23 12/13/21 08:00 71 19 95 12/13/21 08:00 150/68 H 12/13/21 07:50 72 15 98 12/13/21 07:40 72 17 98 12/13/21 07:30 74 17 98 12/13/21 07:30 141/71 H 12/13/21 07:55 79 30 H 98 12/13/21 07:43 12/13/21 07:20 85 20 94 12/13/21 07:10 74 19 98 12/13/21 07:00 78 19 97 12/13/21 07:00 140/72 12/13/21 06:00 66 16 130/60 97 Pulse Ox O2 Del Method O2 Del Method O2 Flow Rate O2 Flow Rate 12/13/21 14:30 Nasal Cannula 2 12/13/21 14:30 Nasal Cannula 2 12/13/21 16:04 Nasal Cannula 2 12/13/21 15:02 12/13/21 13:45 Nasal Cannula 2 12/13/21 13:42 12/13/21 13:42 12/13/21 13:30 12/13/21 13:15 Nasal Cannula 2 12/13/21 13:00 Nasal Cannula 2 12/13/21 13:00 12/13/21 12:45 Nasal Cannula 2 12/13/21 12:30 Nasal Cannula 2 12/13/21 12:30 12/13/21 12:15 12/13/21 12:01 12/13/21 12:01 12/13/21 12:00 Room Air 2 12/13/21 11:45 12/13/21 11:30 Nasal Cannula 2 12/13/21 11:30 12/13/21 11:15 12/13/21 11:00 12/13/21 11:00 12/13/21 12:48 Nasal Cannula 2 12/13/21 11:46 Nasal Cannula 2 12/13/21 11:46 Nasal Cannula 2 12/13/21 10:45 Nasal Cannula 2 12/13/21 10:31 Nasal Cannula 2 12/13/21 10:31 12/13/21 10:30 12/13/21 10:15 12/13/21 10:00 Nasal Cannula 2 12/13/21 10:00 12/13/21 09:45 Nasal Cannula 2 12/13/21 09:30 12/13/21 09:30 12/13/21 09:20 Nasal Cannula 2 12/13/21 09:10 Nasal Cannula 2 12/13/21 09:00 Nasal Cannula 2 12/13/21 09:00 12/13/21 08:50 Nasal Cannula 2 12/13/21 09:19 Nasal Cannula 2 12/13/21 08:40 Nasal Cannula 2 12/13/21 08:31 12/13/21 08:31 12/13/21 08:30 12/13/21 08:20 12/13/21 08:10 12/13/21 08:00 Nasal Cannula 2 12/13/21 08:00 12/13/21 07:50 Nasal Cannula 2 12/13/21 07:40 Nasal Cannula 2 12/13/21 07:30 Nasal Cannula 2 12/13/21 07:30 12/13/21 07:55 Nasal Cannula 2 12/13/21 07:43 98 Nasal Cannula 2 12/13/21 07:20 Nasal Cannula 2 12/13/21 07:10 Nasal Cannula 2 12/13/21 07:00 Nasal Cannula 2 12/13/21 07:00 12/13/21 06:00 Nasal Cannula 2 Laboratory Results 12/13/21 12/13/21 12/13/21 Range/Units 15:11 08:26 03:36 WBC (4.8-10.8) K/ul RBC (4.63-6.08) M/uL Hgb (14.0-18.0) g/dl Hct (40.1-51.0) % MCV (80.0-100.0) fL MCH (25.0-34.0) pg MCHC (32.0-36.0) g/dL RDW Std Deviation (36.4-46.3) fL RDW Coeff of Ty (11.5-14.5) % Plt Count (130-400) K/uL MPV (9.4-12.4) fL Immature Gran % (Auto) % Neut % (Auto) % Lymph % (Auto) % [place] % (Auto) % Eos % (Auto) % Baso % (Auto) % Neut # (Auto) (1.4-6.5) K/uL Lymph # (Auto) (1.2-3.4) K/uL [place] # (Auto) (0.24-0.82) K/uL Eos # (Auto) (0-0.50) K/uL Baso # (Auto) (0-0.2) K/uL Immature Gran # (Auto) (0.00-0.02) K/uL PT (9.0-12.0) Seconds INR (0.9-1.1) VBG pH 7.36 (7.36-7.41) VBG pCO2 53 H (38-50) mmHg VBG pO2 32 mmHg VBG HCO3 30 mmol/L VBG O2 Saturation < 60.0 % VBG Base Excess 3.2 mEq/L Sodium (136-145) mmol/L Potassium (3.5-5.1) mmol/L Chloride (98-107) mmol/L Carbon Dioxide (21-32) mmol/L Anion Gap (3-11) BUN (6-23) mg/dl Creatinine (0.6-1.4) mg/dl Est Cr Clr Drug Dosing ml/min Est GFR ( Amer) ml/min Est GFR (Non-Af Amer) ml/min BUN/Creatinine Ratio (10-20) Glucose (70-99(Fasting)) mg/dl Calcium (8.5-10.1) mg/dl Total Bilirubin (0.2-1.0) mg/dl AST (13-39) U/L ALT (7-52) U/L Alkaline Phosphatase (34-104) U/L Troponin I High Sens 45.9 H 44.0 H D (0-20) pg/ml Total Protein (6.0-8.3) gm/dl Albumin (3.4-5.0) gm/dl Globulin (2.5-4.0) gm/dl Albumin/Globulin Ratio (0.9-2) Lipase (11-82) U/L SARS-CoV-2 (PCR) (Negative) Influenza Type A (PCR) (Neg) Influenza Type B (PCR) (Neg) RSV (RT-PCR) (Neg) 12/13/21 12/13/21 12/13/21 Range/Units 03:20 02:45 02:45 WBC (4.8-10.8) K/ul RBC (4.63-6.08) M/uL Hgb (14.0-18.0) g/dl Hct (40.1-51.0) % MCV (80.0-100.0) fL MCH (25.0-34.0) pg MCHC (32.0-36.0) g/dL RDW Std Deviation (36.4-46.3) fL RDW Coeff of Ty (11.5-14.5) % Plt Count (130-400) K/uL MPV (9.4-12.4) fL Immature Gran % (Auto) % Neut % (Auto) % Lymph % (Auto) % [place] % (Auto) % Eos % (Auto) % Baso % (Auto) % Neut # (Auto) (1.4-6.5) K/uL Lymph # (Auto) (1.2-3.4) K/uL [place] # (Auto) (0.24-0.82) K/uL Eos # (Auto) (0-0.50) K/uL Baso # (Auto) (0-0.2) K/uL Immature Gran # (Auto) (0.00-0.02) K/uL PT 11.0 (9.0-12.0) Seconds INR 1.0 (0.9-1.1) VBG pH (7.36-7.41) VBG pCO2 (38-50) mmHg VBG pO2 mmHg VBG HCO3 mmol/L VBG O2 Saturation % VBG Base Excess mEq/L Sodium 138 (136-145) mmol/L Potassium 3.9 (3.5-5.1) mmol/L Chloride 103 (98-107) mmol/L Carbon Dioxide 26 (21-32) mmol/L Anion Gap 9 (3-11) BUN 18 (6-23) mg/dl Creatinine 1.47 H (0.6-1.4) mg/dl Est Cr Clr Drug Dosing 30.0 ml/min Est GFR ( Amer) 49.7 ml/min Est GFR (Non-Af Amer) 42.9 ml/min BUN/Creatinine Ratio 12.2 (10-20) Glucose 120 H (70-99(Fasting)) mg/dl Calcium 8.7 (8.5-10.1) mg/dl Total Bilirubin 0.6 (0.2-1.0) mg/dl AST 16 (13-39) U/L ALT 10 (7-52) U/L Alkaline Phosphatase 61 (34-104) U/L Troponin I High Sens 30.4 H (0-20) pg/ml Total Protein 7.0 (6.0-8.3) gm/dl Albumin 3.6 (3.4-5.0) gm/dl Globulin 3.4 (2.5-4.0) gm/dl Albumin/Globulin Ratio 1.1 (0.9-2) Lipase 16 (11-82) U/L SARS-CoV-2 (PCR) NEGATIVE (Negative) Influenza Type A (PCR) Negative (Neg) Influenza Type B (PCR) Negative (Neg) RSV (RT-PCR) Negative (Neg) 12/13/21 Range/Units 02:45 WBC 7.15 (4.8-10.8) K/ul RBC 3.33 L (4.63-6.08) M/uL Hgb 11.1 L (14.0-18.0) g/dl Hct 34.0 L (40.1-51.0) % MCV 102.1 H (80.0-100.0) fL MCH 33.3 (25.0-34.0) pg MCHC 32.6 (32.0-36.0) g/dL RDW Std Deviation 46.5 H (36.4-46.3) fL RDW Coeff of Ty 12.4 (11.5-14.5) % Plt Count 176 (130-400) K/uL MPV 11.8 (9.4-12.4) fL Immature Gran % (Auto) 0.4 % Neut % (Auto) 60.1 % Lymph % (Auto) 29.0 % [place] % (Auto) 6.4 % Eos % (Auto) 3.1 % Baso % (Auto) 1.0 % Neut # (Auto) 4.30 (1.4-6.5) K/uL Lymph # (Auto) 2.07 (1.2-3.4) K/uL [place] # (Auto) 0.46 (0.24-0.82) K/uL Eos # (Auto) 0.22 (0-0.50) K/uL Baso # (Auto) 0.07 (0-0.2) K/uL Immature Gran # (Auto) 0.03 H (0.00-0.02) K/uL PT (9.0-12.0) Seconds INR (0.9-1.1) VBG pH (7.36-7.41) VBG pCO2 (38-50) mmHg VBG pO2 mmHg VBG HCO3 mmol/L VBG O2 Saturation % VBG Base Excess mEq/L Sodium (136-145) mmol/L Potassium (3.5-5.1) mmol/L Chloride (98-107) mmol/L Carbon Dioxide (21-32) mmol/L Anion Gap (3-11) BUN (6-23) mg/dl Creatinine (0.6-1.4) mg/dl Est Cr Clr Drug Dosing ml/min Est GFR ( Amer) ml/min Est GFR (Non-Af Amer) ml/min BUN/Creatinine Ratio (10-20) Glucose (70-99(Fasting)) mg/dl Calcium (8.5-10.1) mg/dl Total Bilirubin (0.2-1.0) mg/dl AST (13-39) U/L ALT (7-52) U/L Alkaline Phosphatase (34-104) U/L Troponin I High Sens (0-20) pg/ml Total Protein (6.0-8.3) gm/dl Albumin (3.4-5.0) gm/dl Globulin (2.5-4.0) gm/dl Albumin/Globulin Ratio (0.9-2) Lipase (11-82) U/L SARS-CoV-2 (PCR) (Negative) Influenza Type A (PCR) (Neg) Influenza Type B (PCR) (Neg) RSV (RT-PCR) (Neg) Medications Administered Current Inpatient Medications Acetaminophen (Acetaminophen 325 Mg Tab) 650 mg PO Q4H PRN PRN Reason: Pain or Fever Stop: 01/12/22 07:38 Amiodarone HCl (Amiodarone 200 Mg Tab) 100 mg PO QAM CANDICE Stop: 01/12/22 08:59 Last Admin: 12/13/21 08:43 Dose: 100 mg Aspirin (Aspirin 81 Mg Ectab) 81 mg PO QAM CANDICE Stop: 01/12/22 08:59 Last Admin: 12/13/21 08:44 Dose: 81 mg Erythromycin (Erythromycin Op Oint 5 Mg/Gm 3.5 Gm Tube) 1 appln OP QID CANDICE Stop: 12/17/21 09:59 Last Admin: 12/13/21 17:08 Dose: 1 appln Finasteride (Finasteride 5 Mg Tab) 5 mg PO HS CANDICE Stop: 01/12/22 20:59 Furosemide (Furosemide Inj 20 Mg/2 Ml Vial) 20 mg IV [id number] CANDICE Stop: 01/12/22 16:59 Last Admin: 12/13/21 17:08 Dose: 20 mg Heparin Sodium (Porcine) (Heparin Sod 5,000 Unit/0.5 Ml Vial) 5,000 units SQ Q12 CANDICE Stop: 01/12/22 08:59 Last Admin: 12/13/21 08:45 Dose: 5,000 units Ipratropium Rogers (Ipratropium [place] Neb Soln 0.02% 2.5 Ml Vial) 0.5 mg INH Q6R CANDICE Stop: 01/12/22 07:59 Last Admin: 12/13/21 12:48 Dose: 0.5 mg Isosorbide Dinitrate (Isosorbide Dinitrate 5 Mg Tab) 5 mg PO BID@0700,1200 CANDICE Stop: 01/12/22 08:59 Last Admin: 12/13/21 15:07 Dose: 5 mg Levalbuterol HCl (Levalbuterol 1.25mg/0.5ml Neb) 1.25 mg INH Q6R CANDICE Stop: 01/12/22 07:59 Last Admin: 12/13/21 12:48 Dose: 1.25 mg Levalbuterol HCl (Levalbuterol Hcl 1.25 Mg/3 Ml Neb) 1.25 mg NEB Q4H PRN; Protocol PRN Reason: Shortness Of Breath Or Wheezing Stop: 01/12/22 07:38 Mirtazapine (Mirtazapine Tab 15 Mg Tab) 30 mg PO HS CANDICE Stop: 01/12/22 20:59 Nitroglycerin (Nitroglycerin Sl 0.4 Mg/Tab Tab) 0.4 mg SL UD PRN PRN Reason: Chest Pain Stop: 01/12/22 07:38 Polyethylene Glycol (Polyethylene (Miralax) 17 Gm Pack) 17 gm PO DAILY PRN PRN Reason: Constipation Stop: 01/12/22 07:38 Tamsulosin HCl (Tamsulosin Hcl 0.4 Mg Cap) 0.4 mg PO DAILY CANDICE Stop: 01/12/22 08:59 Last Admin: 12/13/21 08:45 Dose: 0.4 mg Umeclidinium/Vilanterol (Umeclidinium/Vilanterol 62.5/25mcg 7 Puffs/Inhaler) 1 puffs INH DAILY CANDICE Stop: 01/12/22 12:59 Last Admin: 12/13/21 15:53 Dose: 1 puffs
[2021-12-13] MEDS: FINASTERIDE 5 MG TAB PO SCH (20:05)
[2021-12-13] MEDS: MIRTAZAPINE TAB 15 MG TAB PO SCH (20:06)
[2021-12-14] MEDS: LEVALBUTEROL 1.25MG/0.5ML NEB INH SCH ×4 (00:15→19:31)
[2021-12-14] MEDS: IPRATROPIUM BROMIDE NEB SOLN 0.02% 2.5 ML VIAL INH SCH ×4 (00:15→19:31)
[2021-12-14 06:46] LABS: Hematocrit (blood only) 29.9 % (40.1-51.0); Mean Corpuscular Hemoglobin 33.2 pg (25.0-34.0); Mean Corpuscular Hgb Conc 33.4 g/dL (32.0-36.0); Mean Corpuscular Volume 99.3 fL (80.0-100.0); Mean Platelet Volume 11.5 fL (9.4-12.4); Platelet Count 175 K/uL (130-400); RDW Coefficient of Variation 12.5 % (11.5-14.5); RDW Standard Deviation 45.1 fL (36.4-46.3); Red Blood Count 3.01 M/uL (4.63-6.08)
[2021-12-14] MEDS: ISOSORBIDE DINITRATE 5 MG TAB PO SCH ×2 (07:10→11:33)
[2021-12-14 07:15] LABS: Basophils # (auto) 0.02 K/uL (0-0.2); Basophils % (auto) 0.1 %; Immature Granulocytes # (auto) 0.11 K/uL (0.00-0.02); Immature Granulocytes % (auto) 0.8 %; Lymphocytes # (auto) 0.67 K/uL (1.2-3.4); Lymphocytes % (auto) 4.7 %; Monocytes # (auto) 0.58 K/uL (0.24-0.82); Neutrophils # (auto) 13.02 K/uL (1.4-6.5); Neutrophils % (auto) 90.4 %
[2021-12-14 07:18] LABS: BUN Creatinine Ratio 18.2 (10-20); Calcium 8.6 mg/dl (8.5-10.1); Creatinine Clr Calc Pharmacy 21.7 ml/min; Est GFR (Non-African American) 31.1 ml/min
--- NOTE | 2021-12-14 07:55 | Cardiology Progress Note ---
Date of Service December 14, 2021 Assessment & Plan (1) Nonischemic cardiomyopathy: (2) Acute on chronic HFrEF (heart failure with reduced ejection fraction): (3) Pleural effusion: (4) COPD (chronic obstructive pulmonary disease): (5) Acute exacerbation of chronic obstructive pulmonary disease: Plan Complex cachectic 86-year-old male with history of nonischemic cardiomyopathy initially diagnosed in 2008 as well as end-stage systolic CHF, NYHA class IV. Previously had a BiV ICD which was extracted due to infection. Patient admitted with shortness of breath, found to be in acute on chronic CHF with acute on chronic hypoxic respiratory failure. Symptoms improving with IV Lasix however renal function did decline overnight. Prior chest x-ray showing bilateral pleural effusions. SPO2 98%, back on his baseline 2 L nasal cannula. IV furosemide held due to renal insufficiency but will resume oral furosemide Admission and Anticipated Discharge Date Admission Date: December 13, 2021 Subjective Patient was seen and examined, chart, medications, telemetry reviewed. Continues to manifest diuresis. IV furosemide discontinued yesterday but oral furosemide resumed at same time and he continues to tolerate with renal function improving and continue diuresis. No chest pains or discomfort no productive cough. Oxygenating well on 2 L nasal cannula. Review of Systems Review of Systems: All systems reviewed & are unremarkable except as noted in HPI & below Physical Exam Constitutional: + cachectic and + frail appearing; no acute distress Eyes: + eyelid abnormality (left eye lid red) and PERRL ENMT: external ear and nose normal, oropharynx normal Ears: + hearing impairment (hearing aids) Neck: normal visual inspection and trachea midline Respiratory: normal respiratory effort; no respiratory distress and no cough Auscultation: + diminished lung sounds (BL bases) and + crackles (BL); no rhonchi and no wheezes Cardiovascular: Rate/Rhythm: regular rate and regular rhythm Heart Sounds: normal S1, normal S2 and + murmur (+ soft apical systolic murmur ) Vessels: no JVD Extremities: no edema Gastrointestinal (Abdomen): normal bowel sounds, soft, nontender, no hepatosplenomegaly Skin: no rashes, warm and dry Psychiatric: A+Ox3, euthymic affect Results & Data ([facility] [place]) Vital Signs (Past 12 Hours) Vital Signs Temp Pulse Pulse Pulse Resp BP Pulse Ox 12/14/21 07:31 63 14 97 12/14/21 07:12 36.3 C L 64 16 116/55 L 99 12/14/21 07:05 91 H 12/13/21 23:00 79 12/14/21 03:00 36.8 C 67 18 118/58 L 99 12/14/21 00:17 18 12/14/21 00:16 12/13/21 23:00 36.6 C 67 20 110/48 L 94 12/13/21 22:37 67 23 95 12/13/21 20:10 O2 Del Method O2 Flow Rate 12/14/21 07:31 Nasal Cannula 2 12/14/21 07:12 Nasal Cannula 1.5 12/14/21 07:05 12/13/21 23:00 12/14/21 03:00 12/14/21 00:17 Nasal Cannula 2 12/14/21 00:16 2 12/13/21 23:00 12/13/21 22:37 2 12/13/21 20:10 Nasal Cannula 1.5 Laboratory Results Cardiac Enzymes 12/13/21 12/13/21 12/13/21 Range/Units 08:26 15:11 20:16 Troponin I High Sens 44.0 H D 45.9 H 45.9 H (0-20) pg/ml CBC 12/14/21 Range/Units 06:08 WBC 14.40 H (4.8-10.8) K/ul RBC 3.01 L (4.63-6.08) M/uL Hgb 10.0 L (14.0-18.0) g/dl Hct 29.9 L (40.1-51.0) % Plt Count 175 (130-400) K/uL Neut # (Auto) 13.02 H (1.4-6.5) K/uL Lymph # (Auto) 0.67 L (1.2-3.4) K/uL [place] # (Auto) 0.58 (0.24-0.82) K/uL Eos # (Auto) 0.00 (0-0.50) K/uL Baso # (Auto) 0.02 (0-0.2) K/uL Comprehensive Metabolic Panel 12/14/21 Range/Units 06:08 Sodium 137 (136-145) mmol/L Potassium 4.0 (3.5-5.1) mmol/L Chloride 100 (98-107) mmol/L Carbon Dioxide 31 (21-32) mmol/L BUN 35 H (6-23) mg/dl Creatinine 1.92 H D (0.6-1.4) mg/dl Glucose 130 H (70-99(Fasting)) mg/dl Calcium 8.6 (8.5-10.1) mg/dl Intake and Output 12/13/21 12/14/21 12/14/21 22:59 06:59 14:59 Intake Total 100 / 345 120 / 345 Output Total 525 / 1250 100 / 1250 Balance - / -905 Intake: Oral 100 / 345 120 / 345 Output: Urine 525 / 1250 100 / 1250 Other: Weight 54.5 kg Weight Measurement Method Wheelchair Diagnostic Findings Laboratory Results - last 24 hr 12/15/21 12/15/21 08:13 08:13 WBC 10.02 RBC 3.12 L Hgb 10.3 L Hct 31.5 L MCV 101.0 H MCH 33.0 MCHC 32.7 RDW Std Deviation 48.0 H RDW Coeff of Ty 13.1 Plt Count 170 MPV 11.6 Sodium 139 Potassium 3.4 L Chloride 98 Carbon Dioxide 35 H Anion Gap 6 BUN 40 H Creatinine 1.58 H D Est Cr Clr Drug Dosing 25.0 Est GFR ( Amer) 45.6 Est GFR (Non-Af Amer) 39.3 BUN/Creatinine Ratio 25.3 H Glucose 146 H Calcium 8.5 Phosphorus 3.8 Magnesium 2.0 (1) COPD (chronic obstructive pulmonary disease) COPD type: COPD with acute exacerbation Qualified Code(s): J44.1 - Chronic obstructive pulmonary disease with (acute) exacerbation
[2021-12-14] MEDS: AMIODARONE 200 MG TAB PO SCH (08:12)
[2021-12-14] MEDS: FUROSEMIDE INJ 20 MG/2 ML VIAL IV SCH (08:13)
[2021-12-14] MEDS: ASPIRIN 81 MG ECTAB PO SCH (08:13)
[2021-12-14] MEDS: HEPARIN SOD 5,000 UNIT/0.5 ML VIAL SQ SCH ×2 (08:13→20:29)
[2021-12-14] MEDS: TAMSULOSIN HCL 0.4 MG CAP PO SCH (08:14)
[2021-12-14] MEDS: UMECLIDINIUM/VILANTEROL 62.5/25MCG 7 PUFFS/INHALER INH SCH (08:18)
[2021-12-14] MEDS: ERYTHROMYCIN OP OINT 5 MG/GM 3.5 GM TUBE OP SCH ×4 (08:21→20:27)
--- NOTE | 2021-12-14 08:39 | Pulmonology Progress Note ---
Date of Service December 14, 2021 Assessment & Plan (1) COPD (chronic obstructive pulmonary disease): COPD type: COPD with acute exacerbation Qualified Code(s): J44.1 - Chronic obstructive pulmonary disease with (acute) exacerbation (2) Acute on chronic HFrEF (heart failure with reduced ejection fraction): (3) Chronic respiratory failure with hypoxia: (4) Pleural effusion: (5) Pulmonary hypertension: Plan Chest x-ray 2021 personally reviewed: Portable film, bilateral costophrenic and cardiophrenic angles are blunted, haziness appreciated bilateral lower lobes CT chest from October 2021 personally reviewed: Moderate-sized bilateral pleural effusion, cardiomegaly, centrilobular emphysema. No significant mediastinal lymphadenopathy --Bilateral pleural effusion Likely secondary to systolic CHF with EF 15-20% Patient has had chronic bilateral pleural effusion. Saturating well on 2 L nasal cannula which he is on at home. Continue with BiPAP nightly and as needed shortness of breath --COPD with emphysema Not on any inhalers at home Start the patient on Anoro --Chronic hypoxic respiratory failure Likely combination of chronic systolic CHF along with COPD Continue with O2 supplementation to keep ox saturation between 88-92% --Pulmonary hypertension Type II Diuresis as per the primary team Plan: In/out: -545, urine output 900 ml Unfortunately patient's creatinine is going up. Lasix has been put on hold. I discussed regarding the possibility of thoracentesis again with the patient but he would not like to have any procedures done. Overall prognosis of the patient is not good, recommend goals of care discussion with the patient as well as the family Case discussed with Dr. Caceres Please note the above document was generated using voice recognition software. It may contain grammatical, syntax or spelling errors.Any formal questions or concerns about the content, text or information contained within the body of this dictation should be directly addressed to the provider for clarification. Admission and Anticipated Discharge Date Admission Date: December 13, 2021 Subjective Patient seen and examined at bedside. No acute distress, no adverse events overnight. Overall he says he feels the same Denies any chest pain, no headache, no nausea or vomiting Fair appetite Review of Systems Review of Systems: All systems reviewed & are unremarkable except as noted in Subjective Physical Exam Physical Exam: Constitutional: No acute distress, frail-appearing HEENT: EOMI, PERRLA Respiratory system: Decreased air entry bilaterally, no wheeze, rhonchi, positive crackles bilateral lower lobes CVS: S1-S2 positive, no murmurs or gallops Abdomen: Soft, nontender, nondistended, positive bowel sounds x4 Extremities: +2 pulses bilaterally radialis/ dorsalis pedis, no cyanosis, no edema Neuro: Awake alert oriented x3 Psych: Normal mood and affect G/U: [place] Skin: no rashes, warm and dry Lymphatic: no cervical or axillary lymphadenopathy Results & Data Results & Data ([facility]) Vital Signs (Past 12 Hours) Vital Signs Temp Pulse Pulse Pulse Resp BP Pulse Ox 12/14/21 07:31 63 14 97 12/14/21 07:12 36.3 C L 64 16 116/55 L 99 12/14/21 07:05 91 H 12/13/21 23:00 79 12/14/21 03:00 36.8 C 67 18 118/58 L 99 12/14/21 00:17 18 12/14/21 00:16 12/13/21 23:00 36.6 C 67 20 110/48 L 94 12/13/21 22:37 67 23 95 O2 Del Method O2 Flow Rate 12/14/21 07:31 Nasal Cannula 2 12/14/21 07:12 Nasal Cannula 1.5 12/14/21 07:05 12/13/21 23:00 12/14/21 03:00 12/14/21 00:17 Nasal Cannula 2 12/14/21 00:16 2 12/13/21 23:00 12/13/21 22:37 2 Laboratory Results 12/14/21 06:08 12/14/21 06:08 PG Care Time/CCT Total # of Minutes Spent Total Time Spent with Patient: Total time spent is greater than 50% in coordination of care (as documented) at patient's floor/unit and/or counseling patient: Coding Level of Care Code 11729 Subseq Hosp Care Lvl 2 Diagnoses COPD (chronic obstructive pulmonary disease) J44.1 COPD type: COPD with acute exacerbation Acute on chronic HFrEF (heart failure with reduced ejection fraction) I50.23 Chronic respiratory failure with hypoxia J96.11 Pleural effusion J90 Pulmonary hypertension I27.20
--- NOTE | 2021-12-14 10:45 | Hospitalist Progress Note ---
Date of Service December 14, 2021 Assessment & Plan (1) Chronic respiratory failure with hypoxia: (2) Dyspnea: (3) Acute on chronic HFrEF (heart failure with reduced ejection fraction): Plan: This is an 86-year-old male who presents with shortness of breath. 1. Shortness of breath: Secondary to [id number] systolic congestive heart failure, EF of 15- 20%. Pl. effusions. Has diminished breath sounds and possible chronic obstructive pulmonary disease exacerbation. Received nebs and steroids and a dose of IV Lasix 20 in the ER. Cardiology and pulmonary medicine consulted - appreciate their recs Continued w/ Lasix 20 IV twice daily however Cr now 1.9 - lasix on hold , cont. home meds - isosorbide dinitrate Per pulmonary medicine - no thoracentesis at this time. Started patient on Anoro due to hx of COPD I's and O's, closely monitor in the tele floor. Palliative medicine also consulted to help address goal of care History of nonsustained ventricular tachycardia: On amiodarone. Benign prostatic hyperplasia: On Flomax and finasteride. Depression: On Remeron. His home Remeron dose was halved by PCP because the patient wanted to have appetite stimulant Hypertension: Currently on diuretics and isosorbide dinitrate - d/t hx of HF, as above. Chronic kidney disease stage III: On admission creatinine of 1.4, close to baseline.Now mild elevation at 1.9 - diuretics on hold. cont. to monitor. History of left bundle-branch block with severe left ventricular dysfunction: Followup with cardiology. Mild elevation of troponin. Mostly demand ischemia. repeat troponins, cardiology following. DVT prophylaxis: heparin subcutaneous. DISPOSITION: tele floor. PT/OT prior to discharge. Social service to help with discharge planning. CODE: full code. palliative medicine consulted to help address goals of care Admission and Anticipated Discharge Date Admission Date: December 13, 2021 Subjective Patient seen in follow-up of shortness of breath, secondary to end-stage heart failure, and COPD Chronically on 2 L of oxygen Cardiology and pulmonary medicine consulted No thoracentesis at this time. Continued w/ IV diuresis, started Anoro by pulm. Currently patient is sitting up in bed, in no acute distress. He is on 2 L of oxygen. Currently denies any chest pain, palpitations, fevers chills. Reports breathing is improved. Cr up - lasix on hold Palliative medicine also consulted Review of Systems Review of Systems: All systems reviewed & are unremarkable except as noted in Subjective Physical Exam Physical Exam: GENERAL: thin elderly frail M not in acute distress. HEENT: NC/AT, EOMI, Pupils equal, round and reactive to light. Oral mucosa moist. NECK: No JVD, no neck masses. CARDIOVASCULAR: S1 and S2 heard. Regular rate and rhythm. No murmur, no gallop. RESPIRATORY: Normal AP diameter. No accessory muscle use. Diminished bilateral breath sounds. No obvious wheezing or crackles. ABDOMEN: Soft, bowel sounds present, nontender, no distention. NEURO: Alert and awake and oriented. Speech is clear. No facial droop. Obeys simple commands. Moves extremities. EXTREMITIES: No edema, no erythema seen. Results & Data Results & Data ([facility]) Vital Signs (Past 12 Hours) Vital Signs Temp Pulse Pulse Pulse Resp BP Pulse Ox 12/14/21 08:00 12/14/21 07:31 63 14 97 12/14/21 07:12 36.3 C L 64 16 116/55 L 99 12/14/21 07:05 91 H 12/13/21 23:00 79 12/14/21 03:00 36.8 C 67 18 118/58 L 99 12/14/21 00:17 18 12/14/21 00:16 12/13/21 23:00 36.6 C 67 20 110/48 L 94 O2 Del Method O2 Flow Rate 12/14/21 08:00 Nasal Cannula 1.5 12/14/21 07:31 Nasal Cannula 2 12/14/21 07:12 Nasal Cannula 1.5 12/14/21 07:05 12/13/21 23:00 12/14/21 03:00 12/14/21 00:17 Nasal Cannula 2 12/14/21 00:16 2 12/13/21 23:00 Laboratory Results 12/14/21 12/14/21 12/13/21 Range/Units 06:08 06:08 20:16 WBC 14.40 H (4.8-10.8) K/ul RBC 3.01 L (4.63-6.08) M/uL Hgb 10.0 L (14.0-18.0) g/dl Hct 29.9 L (40.1-51.0) % MCV 99.3 (80.0-100.0) fL MCH 33.2 (25.0-34.0) pg MCHC 33.4 (32.0-36.0) g/dL RDW Std Deviation 45.1 (36.4-46.3) fL RDW Coeff of Ty 12.5 (11.5-14.5) % Plt Count 175 (130-400) K/uL MPV 11.5 (9.4-12.4) fL Immature Gran % (Auto) 0.8 % Neut % (Auto) 90.4 % Lymph % (Auto) 4.7 % [place] % (Auto) 4.0 % Eos % (Auto) 0.0 % Baso % (Auto) 0.1 % Neut # (Auto) 13.02 H (1.4-6.5) K/uL Lymph # (Auto) 0.67 L (1.2-3.4) K/uL [place] # (Auto) 0.58 (0.24-0.82) K/uL Eos # (Auto) 0.00 (0-0.50) K/uL Baso # (Auto) 0.02 (0-0.2) K/uL Immature Gran # (Auto) 0.11 H (0.00-0.02) K/uL Sodium 137 (136-145) mmol/L Potassium 4.0 (3.5-5.1) mmol/L Chloride 100 (98-107) mmol/L Carbon Dioxide 31 (21-32) mmol/L Anion Gap 6 (3-11) BUN 35 H (6-23) mg/dl Creatinine 1.92 H D (0.6-1.4) mg/dl Est Cr Clr Drug Dosing 21.7 ml/min Est GFR ( Amer) 36.0 ml/min Est GFR (Non-Af Amer) 31.1 ml/min BUN/Creatinine Ratio 18.2 (10-20) Glucose 130 H (70-99(Fasting)) mg/dl Calcium 8.6 (8.5-10.1) mg/dl Magnesium 2.0 (1.7-2.4) mg/dl Troponin I High Sens 45.9 H (0-20) pg/ml 12/13/ Range/Units 15:11 WBC (4.8-10.8) K/ul RBC (4.63-6.08) M/uL Hgb (14.0-18.0) g/dl Hct (40.1-51.0) % MCV (80.0-100.0) fL MCH (25.0-34.0) pg MCHC (32.0-36.0) g/dL RDW Std Deviation (36.4-46.3) fL RDW Coeff of Ty (11.5-14.5) % Plt Count (130-400) K/uL MPV (9.4-12.4) fL Immature Gran % (Auto) % Neut % (Auto) % Lymph % (Auto) % [place] % (Auto) % Eos % (Auto) % Baso % (Auto) % Neut # (Auto) (1.4-6.5) K/uL Lymph # (Auto) (1.2-3.4) K/uL [place] # (Auto) (0.24-0.82) K/uL Eos # (Auto) (0-0.50) K/uL Baso # (Auto) (0-0.2) K/uL Immature Gran # (Auto) (0.00-0.02) K/uL Sodium (136-145) mmol/L Potassium (3.5-5.1) mmol/L Chloride (98-107) mmol/L Carbon Dioxide (21-32) mmol/L Anion Gap (3-11) BUN (6-23) mg/dl Creatinine (0.6-1.4) mg/dl Est Cr Clr Drug Dosing ml/min Est GFR ( Amer) ml/min Est GFR (Non-Af Amer) ml/min BUN/Creatinine Ratio (10-20) Glucose (70-99(Fasting)) mg/dl Calcium (8.5-10.1) mg/dl Magnesium (1.7-2.4) mg/dl Troponin I High Sens 45.9 H (0-20) pg/ml Medications Administered Current Inpatient Medications Acetaminophen (Acetaminophen 325 Mg Tab) 650 mg PO Q4H PRN PRN Reason: Pain or Fever Stop: 01/12/22 07:38 Amiodarone HCl (Amiodarone 200 Mg Tab) 100 mg PO QAM [facility] Stop: 01/12/22 08:59 Last Admin: 12/14/21 08:12 Dose: 100 mg Aspirin (Aspirin 81 Mg Ectab) 81 mg PO QAM [facility] Stop: 01/12/22 08:59 Last Admin: 12/14/21 08:13 Dose: 81 mg Erythromycin (Erythromycin Op Oint 5 Mg/Gm 3.5 Gm Tube) 1 appln OP QID [facility] Stop: 12/17/21 09:59 Last Admin: 12/14/21 08:21 Dose: 1 appln Finasteride (Finasteride 5 Mg Tab) 5 mg PO HS [facility] Stop: 01/12/22 20:59 Last Admin: 12/13/21 20:05 Dose: 5 mg Furosemide (Furosemide Inj 20 Mg/2 Ml Vial) 20 mg IV [id number] [facility] Stop: 01/12/22 16:59 Last Admin: 12/14/21 08:13 Dose: 20 mg Heparin Sodium (Porcine) (Heparin Sod 5,000 Unit/0.5 Ml Vial) 5,000 units SQ Q12 [facility] Stop: 01/12/22 08:59 Last Admin: 12/14/21 08:13 Dose: 5,000 units Ipratropium Beccaria (Ipratropium Beccaria Neb Soln 0.02% 2.5 Ml Vial) 0.5 mg INH Q6R [facility] Stop: 01/12/22 07:59 Last Admin: 12/14/21 07:29 Dose: 0.5 mg Isosorbide Dinitrate (Isosorbide Dinitrate 5 Mg Tab) 5 mg PO BID@0700,1200 [facility] Stop: 01/12/22 08:59 Last Admin: 12/14/21 07:10 Dose: 5 mg Levalbuterol HCl (Levalbuterol 1.25mg/0.5ml Neb) 1.25 mg INH Q6R [facility] Stop: 01/12/22 07:59 Last Admin: 12/14/21 07:29 Dose: 1.25 mg Levalbuterol HCl (Levalbuterol Hcl 1.25 Mg/3 Ml Neb) 1.25 mg NEB Q4H PRN; Protocol PRN Reason: Shortness Of Breath Or Wheezing Stop: 01/12/22 07:38 Mirtazapine (Mirtazapine Tab 15 Mg Tab) 30 mg PO HS [facility] Stop: 01/12/22 20:59 Last Admin: 12/13/21 20:06 Dose: 30 mg Nitroglycerin (Nitroglycerin Sl 0.4 Mg/Tab Tab) 0.4 mg SL UD PRN PRN Reason: Chest Pain Stop: 01/12/22 07:38 Polyethylene Glycol (Polyethylene (Miralax) 17 Gm Pack) 17 gm PO DAILY PRN PRN Reason: Constipation Stop: 01/12/22 07:38 Tamsulosin HCl (Tamsulosin Hcl 0.4 Mg Cap) 0.4 mg PO DAILY [facility] Stop: 01/12/22 08:59 Last Admin: 12/14/21 08:14 Dose: 0.4 mg Umeclidinium/Vilanterol (Umeclidinium/Vilanterol 62.5/25mcg 7 Puffs/Inhaler) 1 puffs INH DAILY [facility] Stop: 01/12/22 12:59 Last Admin: 12/14/21 08:18 Dose: 1 puffs
[2021-12-14] MEDS: FUROSEMIDE 20 MG TAB PO SCH (18:02)
[2021-12-14] MEDS: FINASTERIDE 5 MG TAB PO SCH (20:29)
[2021-12-14] MEDS: MIRTAZAPINE TAB 15 MG TAB PO SCH (20:29)
[2021-12-15] MEDS: LEVALBUTEROL 1.25MG/0.5ML NEB INH SCH ×2 (00:14→07:11)
[2021-12-15] MEDS: IPRATROPIUM BROMIDE NEB SOLN 0.02% 2.5 ML VIAL INH SCH ×2 (00:14→07:10)
[2021-12-15] MEDS: ISOSORBIDE DINITRATE 5 MG TAB PO SCH ×2 (07:48→11:21)
--- NOTE | 2021-12-15 08:31 | Pulmonology Progress Note ---
Date of Service December 15, 2021 Assessment & Plan (1) COPD (chronic obstructive pulmonary disease): COPD type: COPD with acute exacerbation Qualified Code(s): J44.1 - Chronic obstructive pulmonary disease with (acute) exacerbation (2) Acute on chronic HFrEF (heart failure with reduced ejection fraction): (3) Chronic respiratory failure with hypoxia: (4) Pleural effusion: (5) Pulmonary hypertension: Plan Chest x-ray 2021 personally reviewed: Portable film, bilateral costophrenic and cardiophrenic angles are blunted, haziness appreciated bilateral lower lobes CT chest from October 2021 personally reviewed: Moderate-sized bilateral pleural effusion, cardiomegaly, centrilobular emphysema. No significant mediastinal lymphadenopathy --Bilateral pleural effusion Likely secondary to systolic CHF with EF 15-20% Patient has had chronic bilateral pleural effusion. Saturating well on 2 L nasal cannula which he is on at home. Continue with BiPAP nightly and as needed shortness of breath --COPD with emphysema Not on any inhalers at home Start the patient on Anoro --Chronic hypoxic respiratory failure Likely combination of chronic systolic CHF along with COPD Continue with O2 supplementation to keep ox saturation between 88-92% --Pulmonary hypertension Type II Diuresis as per the primary team Plan: In/out: -1205, urine output 1565 ml, -2.9 L since coming to the hospital Patient has been diuresing well even though the Lasix is on hold. I discussed regarding the possibility of thoracentesis again today with the patient but he would not like to have any procedures done. Overall prognosis of the patient is not good, recommend goals of care discussion with the patient as well as the family Case discussed with Dr Moreno No further recommendation from pulmonary perspective. We will sign off If the patient changes his mind regarding thoracentesis please call directly Please note the above document was generated using voice recognition software. It may contain grammatical, syntax or spelling errors.Any formal questions or concerns about the content, text or information contained within the body of this dictation should be directly addressed to the provider for clarification. Admission and Anticipated Discharge Date Admission Date: December 13, 2021 Subjective Patient seen and examined at bedside. No acute distress, no adverse events overnight. Denies any headache, no nausea, no vomiting Overall he says he is feeling better since coming to the hospital. Shortness of breath is improved, no chest pain He has been urinating well. Although Lasix has been on hold since yesterday. Fair appetite. Review of Systems Review of Systems: All systems reviewed & are unremarkable except as noted in Subjective Physical Exam Physical Exam: Constitutional: No acute distress, frail-appearing HEENT: EOMI, PERRLA Respiratory system: Decreased air entry bilaterally, no wheeze, rhonchi, positive crackles bilateral lower lobes CVS: S1-S2 positive, no murmurs or gallops Abdomen: Soft, nontender, nondistended, positive bowel sounds x4 Extremities: +2 pulses bilaterally radialis/ dorsalis pedis, no cyanosis, no edema Neuro: Awake alert oriented x3 Psych: Normal mood and affect G/U: No [place] Skin: no rashes, warm and dry Lymphatic: no cervical or axillary lymphadenopathy Results & Data Results & Data ([facility]) Vital Signs (Past 12 Hours) Vital Signs Temp Pulse Pulse Resp BP BP Pulse Ox 12/15/21 06:06 65 12/15/21 07:20 36.5 C 63 19 131/47 L 98 12/15/21 07:11 70 16 98 12/15/21 03:20 36.5 C 73 18 131/63 99 12/14/21 23:00 36.3 C L 73 18 126/71 99 12/14/21 23:00 70 12/15/21 00:17 70 18 96 O2 Del Method O2 Flow Rate 12/15/21 06:06 12/15/21 07:20 12/15/21 07:11 Nasal Cannula 2 12/15/21 03:20 Nasal Cannula 2 12/14/21 23:00 Nasal Cannula 2 12/14/21 23:00 12/15/21 00:17 Nasal Cannula 2 Laboratory Results 12/14/21 06:08 12/14/21 06:08 PG Care Time/CCT Total # of Minutes Spent Total Time Spent with Patient: Total time spent is greater than 50% in coordination of care (as documented) at patient's floor/unit and/or counseling patient: Coding Level of Care Code 44426 Subseq Hosp Care Lvl 2 Diagnoses COPD (chronic obstructive pulmonary disease) J44.1 COPD type: COPD with acute exacerbation Acute on chronic HFrEF (heart failure with reduced ejection fraction) I50.23 Chronic respiratory failure with hypoxia J96.11 Pleural effusion J90 Pulmonary hypertension I27.20
[2021-12-15 09:05] LABS: Hematocrit (blood only) 31.5 % (40.1-51.0); Hemoglobin 10.3 g/dl (14.0-18.0); Mean Corpuscular Hgb Conc 32.7 g/dL (32.0-36.0); Mean Platelet Volume 11.6 fL (9.4-12.4); Platelet Count 170 K/uL (130-400); RDW Coefficient of Variation 13.1 % (11.5-14.5); Red Blood Count 3.12 M/uL (4.63-6.08); White Blood Count 10.02 K/ul (4.8-10.8)
[2021-12-15] MEDS: AMIODARONE 200 MG TAB PO SCH (09:09)
[2021-12-15] MEDS: TAMSULOSIN HCL 0.4 MG CAP PO SCH (09:09)
[2021-12-15] MEDS: ASPIRIN 81 MG ECTAB PO SCH (09:10)
[2021-12-15] MEDS: ERYTHROMYCIN OP OINT 5 MG/GM 3.5 GM TUBE OP SCH ×4 (09:10→22:24)
[2021-12-15] MEDS: FUROSEMIDE 20 MG TAB PO SCH ×2 (09:10→16:30)
[2021-12-15] MEDS: HEPARIN SOD 5,000 UNIT/0.5 ML VIAL SQ SCH ×2 (09:10→22:25)
[2021-12-15] MEDS: UMECLIDINIUM/VILANTEROL 62.5/25MCG 7 PUFFS/INHALER INH SCH (09:11)
[2021-12-15 10:00] LABS: BUN Creatinine Ratio 25.3 (10-20); Calcium 8.5 mg/dl (8.5-10.1); Est GFR (African American) 45.6 ml/min; Est GFR (Non-African American) 39.3 ml/min; Phosphorus 3.8 mg/dl (2.5-4.9); Potassium 3.4 mmol/L (3.5-5.1)
[2021-12-15] MEDS ORDERED: POTASSIUM CHLORIDE CRTAB 20 MEQ TABCR PO ONE (12:42)
--- NOTE | 2021-12-15 13:17 | Cardiology Progress Note ---
Date of Service December 15, 2021 Assessment & Plan (1) Nonischemic cardiomyopathy: (2) Acute on chronic HFrEF (heart failure with reduced ejection fraction): (3) Pleural effusion: (4) COPD (chronic obstructive pulmonary disease): (5) Acute exacerbation of chronic obstructive pulmonary disease: Plan Complex cachectic 86-year-old male with history of nonischemic cardiomyopathy initially diagnosed in 2008 as well as end-stage systolic CHF, NYHA class IV. Previously had a BiV ICD which was extracted due to infection. Patient admitted with shortness of breath, found to be in acute on chronic CHF with acute on chronic hypoxic respiratory failure. Symptoms improving with IV Lasix however renal function did decline overnight. Prior chest x-ray showing bilateral pleural effusions. SPO2 98%, back on his baseline 2 L nasal cannula. Plan continue oral furosemide 20 mg twice per day. Add spironolactone 12.5 mg daily No other additional medical changes. Continue oxygen supplementation. Appreciate pulmonology recommendation Admission and Anticipated Discharge Date Admission Date: December 13, 2021 Subjective Patient seen and examined, chart, medications telemetry reviewed. Patient has manifested ongoing diuresis. IV diuretics have been discontinued however patient continued on oral furosemide at 20 mg twice per day with ongoing improvement. Denies any chest pains or worsening edema no productive cough. Patient not interested in thoracentesis. Physical Exam Constitutional: + cachectic and + frail appearing; no acute distress Eyes: + eyelid abnormality (left eye lid red) and PERRL ENMT: external ear and nose normal, oropharynx normal Ears: + hearing impairment (hearing aids) Neck: normal visual inspection and trachea midline Respiratory: normal respiratory effort; no respiratory distress and no cough Auscultation: + diminished lung sounds (BL bases) and + crackles (BL); no rhonchi and no wheezes Cardiovascular: Rate/Rhythm: regular rate and regular rhythm Heart Sounds: normal S1, normal S2 and + murmur (+ soft apical systolic murmur ) Vessels: no JVD Extremities: no edema Gastrointestinal (Abdomen): normal bowel sounds, soft, nontender, no hepatosplenomegaly Skin: no rashes, warm and dry Psychiatric: A+Ox3, euthymic affect Results & Data ([facility]) Vital Signs (Past 12 Hours) Vital Signs Temp Pulse Pulse Resp BP BP Pulse Ox 12/15/21 10:54 36.5 C 65 19 111/52 L 100 12/15/21 07:42 12/15/21 06:06 65 12/15/21 07:20 36.5 C 63 19 131/47 L 98 12/15/21 07:11 70 16 98 12/15/21 03:20 36.5 C 73 18 131/63 99 O2 Del Method O2 Flow Rate 12/15/21 10:54 Nasal Cannula 2 12/15/21 07:42 Nasal Cannula 2 12/15/21 06:06 12/15/21 07:20 12/15/21 07:11 Nasal Cannula 2 12/15/21 03:20 Nasal Cannula 2 Laboratory Results Laboratory Results - last 24 hr 12/15/21 12/15/21 08:13 08:13 WBC 10.02 RBC 3.12 L Hgb 10.3 L Hct 31.5 L MCV 101.0 H MCH 33.0 MCHC 32.7 RDW Std Deviation 48.0 H RDW Coeff of Ty 13.1 Plt Count 170 MPV 11.6 Sodium 139 Potassium 3.4 L Chloride 98 Carbon Dioxide 35 H Anion Gap 6 BUN 40 H Creatinine 1.58 H D Est Cr Clr Drug Dosing 25.0 Est GFR ( Amer) 45.6 Est GFR (Non-Af Amer) 39.3 BUN/Creatinine Ratio 25.3 H Glucose 146 H Calcium 8.5 Phosphorus 3.8 Magnesium 2.0 (1) COPD (chronic obstructive pulmonary disease) COPD type: COPD with acute exacerbation Qualified Code(s): J44.1 - Chronic obstructive pulmonary disease with (acute) exacerbation
--- NOTE | 2021-12-15 16:28 | Hospitalist Progress Note ---
Date of Service December 15, 2021 Assessment & Plan (1) Chronic respiratory failure with hypoxia: (2) Dyspnea: (3) Acute on chronic HFrEF (heart failure with reduced ejection fraction): Plan: Patient is an 86 yr male who presents with shortness of breath. Acute on chronic systolic failure with reduced EF Acute on chronic respiratory failure with hypoxia --CXR:Cardiomegaly and moderate pulmonary edema. Bilateral small to moderate pleural effusions with underlying atelectasis, minimally improved from prior exam. --ECHO:11/08/21: Left ventricle is mildly dilated. Mild concentric LVH. Severe global hypokinesis of left ventricle. Septal motion is consistent with conduction abnormality. EF 15 to 20%. Left atrium is moderately dilated. Aortic valve sclerosis moderate, moderate to severe mitral regurgitation, mild tricuspid regurgitation, moderate sized left pleural effusion, right ventricle systolic pressure is elevated at 50 to 60 mmHg --H/O nonischemic cardiomyopathy diagnosed in 2008 History of biventricular ICD placement: Removed due to infection -Received IV Lasix Continue p.o. Lasix 20 mg twice a day, added Aldactone 12.5 mg daily Monitor volume status, I's and O's, daily weight Appreciate cardiology input Acute on chronic respiratory failure with hypoxia Pulmonary hypertension Pleural effusion Acute COPD Exacerbation Patient refused thoracentesis Continue supplemental oxygen 2 L Continue diuresis as above Overall prognosis poor Palliative care consulted Appreciate pulmonology input BiPAP as needed Continue current inhalers H/O NSVT On amiodarone. BPH On Flomax and finasteride. Depression On Remeron. Hypertension: continue current meds CJ on CKD III Cr: 1.58 today Avoid nephrotoxic agents as able Monitor renal function H/O LBBB Mild elevation of troponin: likely demand ischemia DVT Px: Heparin SQ Code Status Full Code Disposition PT/OT Prior to discharge Admission and Anticipated Discharge Date Admission Date: December 13, 2021 Subjective Patient is seen and examined at bedside States feeling comfortable lying in bed this morning Saturating well on 2 L supplemental oxygen Denies any chest pain, shortness of breath, dizziness, nausea, abdominal pain Discussed with pulmonology today Offers no other complaints Renal function improving Review of Systems Review of Systems: All systems reviewed & are unremarkable except as noted in Subjective Physical Exam Physical Exam: Physical Exam: Vitals signs as noted above General Appearance:Thin, frail, elderly, Chronic ill appearing, no apparent distress Head: normocephalic, Atraumatic Eyes: normal inspection, EOMI Neck: supple, Trachea midline Respiratory/Chest: Decreased breath sounds, CTA, No accessory muscle use Cardiovascular: S1, S2, +murmur Abdomen/GI:Soft, Non tender, Bowel sounds present Extremities/Musculoskeletal:normal inspection, no edema Neurologic/Psych:AAOX3, grossly no focal neurological deficits Skin: normal color, warm Results & Data Results & Data ([facility]) Vital Signs (Past 12 Hours) Vital Signs Temp Pulse Pulse Resp BP Pulse Ox O2 Del Method 12/15/21 15:25 36.4 C L 71 18 129/50 L 100 Nasal Cannula 12/15/21 14:16 71 12/15/21 10:54 36.5 C 65 19 111/52 L 100 Nasal Cannula 12/15/21 07:42 Nasal Cannula 12/15/21 06:06 65 12/15/21 07:20 36.5 C 63 19 131/47 L 98 12/15/21 07:11 70 16 98 Nasal Cannula O2 Flow Rate 12/15/21 15:25 2 12/15/21 14:16 12/15/21 10:54 2 12/15/21 07:42 2 12/15/21 06:06 12/15/21 07:20 12/15/21 07:11 2 Laboratory Results Short CBC 12/15/21 Range/Units 08:13 WBC 10.02 (4.8-10.8) K/ul Hgb 10.3 L (14.0-18.0) g/dl Hct 31.5 L (40.1-51.0) % Plt Count 170 (130-400) K/uL BMP 12/15/21 08:13 Sodium 139 Potassium 3.4 L Chloride 98 Carbon Dioxide 35 H BUN 40 H Creatinine 1.58 H D Glucose 146 H Calcium 8.5
[2021-12-15] MEDS: MIRTAZAPINE TAB 15 MG TAB PO SCH (22:25)
[2021-12-15] MEDS: FINASTERIDE 5 MG TAB PO SCH (22:25)
[2021-12-15 22:53] VITALS: O2SAT 100
[2021-12-16] MEDS: ISOSORBIDE DINITRATE 5 MG TAB PO SCH ×2 (06:27→12:41)
[2021-12-16 07:46] LABS: Hematocrit (blood only) 32.9 % (40.1-51.0); Hemoglobin 10.7 g/dl (14.0-18.0); Mean Corpuscular Hemoglobin 33.2 pg (25.0-34.0); Mean Corpuscular Hgb Conc 32.5 g/dL (32.0-36.0); Mean Corpuscular Volume 102.2 fL (80.0-100.0); Mean Platelet Volume 11.4 fL (9.4-12.4); Platelet Count 168 K/uL (130-400); RDW Coefficient of Variation 12.6 % (11.5-14.5); RDW Standard Deviation 47.6 fL (36.4-46.3); Red Blood Count 3.22 M/uL (4.63-6.08); White Blood Count 7.95 K/ul (4.8-10.8)
[2021-12-16 07:59] VITALS: TEMP 97.5
[2021-12-16 08:15] LABS: BUN Creatinine Ratio 27.3 (10-20); Calcium 8.8 mg/dl (8.5-10.1); Creatinine Clr Calc Pharmacy 29.1 ml/min; Est GFR (African American) 56.6 ml/min; Est GFR (Non-African American) 48.8 ml/min; Potassium 3.9 mmol/L (3.5-5.1)
[2021-12-16] MEDS: TAMSULOSIN HCL 0.4 MG CAP PO SCH (08:56)
[2021-12-16] MEDS: FUROSEMIDE 20 MG TAB PO SCH (08:56)
[2021-12-16] MEDS: ERYTHROMYCIN OP OINT 5 MG/GM 3.5 GM TUBE OP SCH (08:57)
[2021-12-16] MEDS: AMIODARONE 200 MG TAB PO SCH (08:57)
[2021-12-16] MEDS: ASPIRIN 81 MG ECTAB PO SCH (08:57)
[2021-12-16] MEDS: HEPARIN SOD 5,000 UNIT/0.5 ML VIAL SQ SCH (08:58)
[2021-12-16] MEDS: UMECLIDINIUM/VILANTEROL 62.5/25MCG 7 PUFFS/INHALER INH SCH (08:58)
[2021-12-16] MEDS ORDERED: SPIRONOLACTONE 12.5 MG TAB PO SCH (09:00)
--- NOTE | 2021-12-16 09:26 | Pulmonology Progress Note ---
Date of Service December 16, 2021 Assessment & Plan (1) COPD (chronic obstructive pulmonary disease): COPD type: COPD with acute exacerbation Qualified Code(s): J44.1 - Chronic obstructive pulmonary disease with (acute) exacerbation (2) Acute on chronic HFrEF (heart failure with reduced ejection fraction): (3) Chronic respiratory failure with hypoxia: (4) Pleural effusion: (5) Pulmonary hypertension: Plan Chest x-ray 2021 personally reviewed: Portable film, bilateral costophrenic and cardiophrenic angles are blunted, haziness appreciated bilateral lower lobes CT chest from October 2021 personally reviewed: Moderate-sized bilateral pleural effusion, cardiomegaly, centrilobular emphysema. No significant mediastinal lymphadenopathy --Bilateral pleural effusion Likely secondary to systolic CHF with EF 15-20% Patient has had chronic bilateral pleural effusion. Saturating well on 2 L nasal cannula which he is on at home. Continue with BiPAP nightly and as needed shortness of breath I discussed regarding the possibility of thoracentesis again today with the patient but he would not like to have any procedures done. --COPD with emphysema Not on any inhalers at home Start the patient on Anoro --Chronic hypoxic respiratory failure Likely combination of chronic systolic CHF along with COPD Continue with O2 supplementation to keep ox saturation between 88-92% --Pulmonary hypertension Type II Diuresis as per the primary team Plan: In/out: - 1.9 L, urine output 2150 ml, - 4.8 L since coming to the hospital Chest x-ray in a.m. Continue with diuretics Overall prognosis of the patient is not good, recommend goals of care discussion with the patient as well as the family No further recommendation from pulmonary perspective. If the patient changes his mind regarding thoracentesis please call directly Please note the above document was generated using voice recognition software. It may contain grammatical, syntax or spelling errors.Any formal questions or concerns about the content, text or information contained within the body of this dictation should be directly addressed to the provider for clarification. Admission and Anticipated Discharge Date Admission Date: December 13, 2021 Subjective Patient seen and examined at bedside. No acute distress, no adverse events overnight. Overall he is feeling better. He is diuresing well Shortness of breath is improved Denies any chest pain, no headache, no nausea, no vomiting. Has been using incentive spirometry and going up to 1000 mL, encouraged to increase it to 1500 Fair appetite Review of Systems Review of Systems: All systems reviewed & are unremarkable except as noted in Subjective Physical Exam Physical Exam: Constitutional: No acute distress, frail-appearing HEENT: EOMI, PERRLA Respiratory system: Decreased air entry bilaterally, no wheeze, rhonchi, positive crackles bilateral lower lobes CVS: S1-S2 positive, no murmurs or gallops Abdomen: Soft, nontender, nondistended, positive bowel sounds x4 Extremities: +2 pulses bilaterally radialis/ dorsalis pedis, no cyanosis, no edema Neuro: Awake alert oriented x3 Psych: Normal mood and affect G/U: No [place] Skin: no rashes, warm and dry Lymphatic: no cervical or axillary lymphadenopathy Results & Data Results & Data ([facility]) Vital Signs (Past 12 Hours) Vital Signs Temp Pulse Resp BP BP Pulse Ox O2 Del Method 12/16/21 07:59 36.4 C L 65 19 123/64 100 Nasal Cannula 12/16/21 07:42 Nasal Cannula 12/16/21 03:03 36.5 C 61 14 122/57 L 100 Nasal Cannula 12/15/21 22:51 36.4 C L 67 16 132/57 L 100 Nasal Cannula O2 Flow Rate 12/16/21 07:59 2 12/16/21 07:42 2 12/16/21 03:03 2.0 12/15/21 22:51 2 Laboratory Results 12/16/21 07:13 12/16/21 07:13 PG Care Time/CCT Total # of Minutes Spent Total Time Spent with Patient: Total time spent is greater than 50% in coordination of care (as documented) at patient's floor/unit and/or counseling patient: Coding Level of Care Code 51908 Subseq Hosp Care Lvl 2 Diagnoses COPD (chronic obstructive pulmonary disease) J44.1 COPD type: COPD with acute exacerbation Acute on chronic HFrEF (heart failure with reduced ejection fraction) I50.23 Chronic respiratory failure with hypoxia J96.11 Pleural effusion J90 Pulmonary hypertension I27.20
--- NOTE | 2021-12-16 09:56 | XRay Report ---
XR chest 1V portable CLINICAL HISTORY: f/u COMPARISON STUDY: Chest CT November 08, 2021. Chest radiograph December 13, 2021. FINDINGS: There is no pneumothorax. Pulmonary edema has significantly improved since prior exam. Ther e is mild residual pulmonary edema. Small to moderate bilateral pleural effusions are again noted. Ca rdiomegaly. Underlying emphysema is better depicted on prior chest CT. IMPRESSION: 1. Interval improvement in pulmonary edema. 2. Small to moderate bilateral pleural effusions with associated bibasilar opacities. ACT 112: Negative or not required by law. Electronically signed by: Jan Dunham M.D. 12/16/2021 9:55 AM
--- NOTE | 2021-12-16 10:59 | Cardiology Progress Note ---
Date of Service December 16, 2021 Assessment & Plan (1) Nonischemic cardiomyopathy: (2) Acute on chronic HFrEF (heart failure with reduced ejection fraction): (3) Pleural effusion: (4) COPD (chronic obstructive pulmonary disease): (5) Acute exacerbation of chronic obstructive pulmonary disease: Plan Complex cachectic 86-year-old male with history of nonischemic cardiomyopathy initially diagnosed in 2008 as well as end-stage systolic CHF, NYHA class IV. Previously had a BiV ICD which was extracted due to infection. Patient admitted with shortness of breath, found to be in acute on chronic CHF with acute on chronic hypoxic respiratory failure. Symptoms improved with IV Lasix. Mild renal insufficiency noted with diuresis, but now improved. Transitioned to oral furosemide 20 mg BID and spironolactone 12.5 mg added yesterday. Good diuresis over the last 24 hours. Renal function improved as well this morning. Continue other cardiac meds on discharge including amiodarone, ASA, isosorbide. Continue oxygen supplementation. No further cardiac testing warranted. Will sign off. 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 Case discussed with Dr. Ba. Admission and Anticipated Discharge Date Admission Date: December 13, 2021 Supervising Physician Co-Signing Physician Notes Patient was seen and personally examined. History and ongoing issues outlined in detail as above. Patient is a complex 86-year-old male with known nonischemic cardiomyopathy with class IV congestive heart failure who presents now with acute on chronic decompensated systolic heart failure manifesting with dyspnea, hypoxia and chest x-ray findings of pulmonary edema and bilateral pleural effusions, left greater than right Respiratory status has improved with diuresis with renal function stabilized Patient on oral furosemide and spironolactone Plan and recommendations as above, patient marginal but stable Overall prognosis limited Subjective Patient resting in bed comfortably. reports SOB has improved from admission. Feels at baseline. Hoping to return home. Denies chest pain. No dizziness. tolerating meds. Review of Systems Review of Systems: All systems reviewed & are unremarkable except as noted in HPI & below Physical Exam Constitutional: + cachectic and + frail appearing; no acute distress Eyes: + eyelid abnormality (left eye lid red) and PERRL ENMT: external ear and nose normal, oropharynx normal Ears: + hearing impairment (hearing aids) Neck: normal visual inspection and trachea midline Respiratory: normal respiratory effort; no respiratory distress and no cough Auscultation: + diminished lung sounds (BL bases); no crackles (BL), no rhonchi and no wheezes Cardiovascular: Rate/Rhythm: regular rate and regular rhythm Heart Sounds: normal S1, normal S2 and + murmur (+ soft apical systolic murmur ) Vessels: no JVD Extremities: no edema Gastrointestinal (Abdomen): normal bowel sounds, soft, nontender, no hepatosplenomegaly Skin: no rashes, warm and dry Psychiatric: A+Ox3, euthymic affect Results & Data ([facility]) Vital Signs (Past 12 Hours) Vital Signs Temp Pulse Resp BP BP Pulse Ox O2 Del Method 12/16/21 07:59 36.4 C L 65 19 123/64 100 Nasal Cannula 12/16/21 07:42 Nasal Cannula 12/16/21 03:03 36.5 C 61 14 122/57 L 100 Nasal Cannula O2 Flow Rate 12/16/21 07:59 2 12/16/21 07:42 2 12/16/21 03:03 2.0 Laboratory Results CBC 12/16/21 Range/Units 07:13 WBC 7.95 (4.8-10.8) K/ul RBC 3.22 L (4.63-6.08) M/uL Hgb 10.7 L (14.0-18.0) g/dl Hct 32.9 L (40.1-51.0) % Plt Count 168 (130-400) K/uL Comprehensive Metabolic Panel 12/16/21 Range/Units 07:13 Sodium 138 (136-145) mmol/L Potassium 3.9 (3.5-5.1) mmol/L Chloride 98 (98-107) mmol/L Carbon Dioxide 37 H (21-32) mmol/L BUN 36 H (6-23) mg/dl Creatinine 1.32 (0.6-1.4) mg/dl Glucose 88 (70-99(Fasting)) mg/dl Calcium 8.8 (8.5-10.1) mg/dl Intake and Output 12/15/21 12/16/21 12/16/21 22:59 06:59 14:59 Output Total 900 / 2450 850 / 2450 Balance -900 / -2220 -850 / -2220 Output: Urine 900 / 2450 850 / 2450 Other: Weight 50.2 kg Weight Measurement Method Built in [facility] Diagnostic Findings Telemetry reviewed: NSR in the 60's. No arrhythmias Medications Administered Current Inpatient Medications Acetaminophen (Acetaminophen 325 Mg Tab) 650 mg PO Q4H PRN PRN Reason: Pain or Fever Stop: 01/12/22 07:38 Amiodarone HCl (Amiodarone 200 Mg Tab) 100 mg PO QAM [facility] Stop: 01/12/22 08:59 Last Admin: 12/16/21 08:57 Dose: 100 mg Aspirin (Aspirin 81 Mg Ectab) 81 mg PO QAM [facility] Stop: 01/12/22 08:59 Last Admin: 12/16/21 08:57 Dose: 81 mg Erythromycin (Erythromycin Op Oint 5 Mg/Gm 3.5 Gm Tube) 1 appln OP QID [facility] Stop: 12/17/21 09:59 Last Admin: 12/16/21 08:57 Dose: 1 appln Finasteride (Finasteride 5 Mg Tab) 5 mg PO HS [facility] Stop: 01/12/22 20:59 Last Admin: 12/15/21 22:25 Dose: 5 mg Furosemide (Furosemide 20 Mg Tab) 20 mg PO BID17 [facility] Stop: 01/13/22 16:59 Last Admin: 12/16/21 08:56 Dose: 20 mg Heparin Sodium (Porcine) (Heparin Sod 5,000 Unit/0.5 Ml Vial) 5,000 units SQ Q1 2 [facility] Stop: 01/12/22 08:59 Last Admin: 12/16/21 08:58 Dose: 5,000 units Isosorbide Dinitrate (Isosorbide Dinitrate 5 Mg Tab) 5 mg PO BID@0700,1200 [facility] Stop: 01/12/22 08:59 Last Admin: 12/16/21 06:27 Dose: 5 mg Levalbuterol HCl (Levalbuterol Hcl 1.25 Mg/3 Ml Neb) 1.25 mg NEB Q4H PRN; Protocol PRN Reason: Shortness Of Breath Or Wheezing Stop: 01/12/22 07:38 Mirtazapine (Mirtazapine Tab 15 Mg Tab) 30 mg PO HS [facility] Stop: 01/12/22 20:59 Last Admin: 12/15/21 22:25 Dose: 30 mg Nitroglycerin (Nitroglycerin Sl 0.4 Mg/Tab Tab) 0.4 mg SL UD PRN PRN Reason: Chest Pain Stop: 01/12/22 07:38 Polyethylene Glycol (Polyethylene (Miralax) 17 Gm Pack) 17 gm PO DAILY PRN PRN Reason: Constipation Stop: 01/12/22 07:38 Spironolactone (Spironolactone 12.5 Mg Tab) 12.5 mg PO DAILY [facility] Stop: 01/15/22 08:59 Last Admin: 12/16/21 08:56 Dose: 12.5 mg Tamsulosin HCl (Tamsulosin Hcl 0.4 Mg Cap) 0.4 mg PO DAILY [facility] Stop: 01/12/22 08:59 Last Admin: 12/16/21 08:56 Dose: 0.4 mg Umeclidinium/Vilanterol (Umeclidinium/Vilanterol 62.5/25mcg 7 Puffs/Inhaler) 1 puffs INH DAILY [facility] Stop: 01/12/22 12:59 Last Admin: 12/16/21 08:58 Dose: 1 puffs (1) COPD (chronic obstructive pulmonary disease) COPD type: COPD with acute exacerbation Qualified Code(s): J44.1 - Chronic obstructive pulmonary disease with (acute) exacerbation
[2021-12-16 12:19] VITALS: BP 126/60; PULSE 70
--- NOTE | 2021-12-16 12:40 | Hospitalist Progress Note ---
Date of Service December 16, 2021 Assessment & Plan (1) Chronic respiratory failure with hypoxia: (2) Dyspnea: (3) Acute on chronic HFrEF (heart failure with reduced ejection fraction): Plan: Patient is an 86 yr male who presents with shortness of breath. Acute on chronic systolic failure with reduced EF Acute on chronic respiratory failure with hypoxia --CXR:Cardiomegaly and moderate pulmonary edema. Bilateral small to moderate pleural effusions with underlying atelectasis, minimally improved from prior exam. --ECHO:11/08/21: Left ventricle is mildly dilated. Mild concentric LVH. Severe global hypokinesis of left ventricle. Septal motion is consistent with conduction abnormality. EF 15 to 20%. Left atrium is moderately dilated. Aortic valve sclerosis moderate, moderate to severe mitral regurgitation, mild tricuspid regurgitation, moderate sized left pleural effusion, right ventricle systolic pressure is elevated at 50 to 60 mmHg --H/O nonischemic cardiomyopathy diagnosed in 2008 History of biventricular ICD placement: Removed due to infection -Received IV Lasix Continue p.o. Lasix 20 mg twice a day, added Aldactone 12.5 mg daily Monitor volume status, I's and O's, daily weight Appreciate cardiology input Chest x-ray today showed improved pulmonary edema Needs follow-up with cardiology upon discharge Patient's family understands the complexity of the patient's condition and agrees with current management. Acute on chronic respiratory failure with hypoxia Pulmonary hypertension Pleural effusion Acute COPD Exacerbation Patient refused thoracentesis Continue supplemental oxygen 2 L Continue diuresis as above Overall prognosis poor Palliative care consulted Appreciate pulmonology input BiPAP as needed Continue current inhalers H/O NSVT On amiodarone. BPH On Flomax and finasteride. Depression On Remeron. Hypertension: continue current meds CJ on CKD III Cr: 1.58> 1.32 Avoid nephrotoxic agents as able Monitor renal function H/O LBBB Mild elevation of troponin: likely demand ischemia DVT Px: Heparin SQ Code Status Full Code Disposition Home with Admission and Anticipated Discharge Date Admission Date: December 13, 2021 Subjective Patient is seen and examined at bedside No new complaints Discussed with Cardiology today Also discussed with patient's family at bedside Denies any chest pain, shortness of breath, dizziness, nausea, abdominal pain Chest X-ray today showed improvement of pulmonary edema Renal function improved as well Review of Systems Review of Systems: Short CBC 12/16/21 Range/Units 07:13 WBC 7.95 (4.8-10.8) K/ul Hgb 10.7 L (14.0-18.0) g/dl Hct 32.9 L (40.1-51.0) % Plt Count 168 (130-400) K/uL [facility] 12/16/21 07:13 Sodium 138 Potassium 3.9 Chloride 98 Carbon Dioxide 37 H BUN 36 H Creatinine 1.32 Glucose 88 Calcium 8.8 Physical Exam Physical Exam: Physical Exam: Vitals signs as noted above General Appearance:Thin, frail, elderly, Chronic ill appearing, no apparent distress Head: normocephalic, Atraumatic Eyes: normal inspection, EOMI Neck: supple, Trachea midline Respiratory/Chest: Decreased breath sounds, CTA, No accessory muscle use Cardiovascular: S1, S2, +murmur Abdomen/GI:Soft, Non tender, Bowel sounds present Extremities/Musculoskeletal:normal inspection, no edema Neurologic/Psych:AAOX3, grossly no focal neurological deficits Skin: normal color, warm Results & Data Results & Data ([facility]) Vital Signs (Past 12 Hours) Vital Signs Temp Pulse Pulse Resp BP BP Pulse Ox 12/16/21 12:19 36.4 C L 70 18 126/60 100 12/16/21 12:03 36.4 C L 63 65 19 122/57 L 123/64 100 12/16/21 07:59 36.4 C L 65 19 123/64 100 12/16/21 07:42 12/16/21 03:03 36.5 C 61 14 122/57 L 100 O2 Del Method O2 Flow Rate 12/16/21 12:19 Room Air 12/16/21 12:03 12/16/21 07:59 Nasal Cannula 2 12/16/21 07:42 Nasal Cannula 2 12/16/21 03:03 Nasal Cannula 2.0 Laboratory Results Short CBC 12/16/21 Range/Units 07:13 WBC 7.95 (4.8-10.8) K/ul Hgb 10.7 L (14.0-18.0) g/dl Hct 32.9 L (40.1-51.0) % Plt Count 168 (130-400) K/uL [facility] 12/16/21 07:13 Sodium 138 Potassium 3.9 Chloride 98 Carbon Dioxide 37 H BUN 36 H Creatinine 1.32 Glucose 88 Calcium 8.8
--- NOTE | 2021-12-16 12:50 | Discharge Summary ---
Date of Service December 16, 2021 Admission HPI Per Admitting Provider CHIEF COMPLAINT: Shortness of breath. HISTORY OF PRESENT ILLNESS: An 86-year-old male with past medical history significant for COPD, chronic respiratory failure, on 2 liters oxygen at home, chronic systolic CHF, left bundle-branch block, hypertension, history of pulmonary nodules, hyperlipidemia, history of nonsustained V-tach, severe malnutrition, BPH, chronic kidney disease stage III, depression, tobacco use d lisa, who lives at home with his , presents with shortness of breath. The patient recently in the hospital for [id number] systolic CHF and COPD exacerbation, echo done on 11/08/2021 showed EF of 15-20%. Right ventricular systolic pressure is elevated at 50-60 mmHg. He was discharged on Lasix 40 mg daily. He was seen by cardiology and also palliative care, but he wanted to be full code. Around first week of November, Lasix was decreased from 40 to 20 mg daily, and also his potassium was decreased from 20 mEq to 10 mEq as his creatinine was increased to 1.7, BUN to 35 and blood pressure low. Last night he suddenly became short of breath. As per the EMS, the patient was saturating 85% on his 2 L nasal cannula, and with increase to 6 liters, saturation improved. Currently on 4 liters, he is saturating okay. Resting comfortably, hemodynamically stable. He says he has cough with whitish and yellowish phlegm. Denies any fever or chills. Denies any chest pain. No nausea, no vomiting. Denies any aspiration. No abdominal pain. Normal bowel and bladder movements. Denies any headache. No blurred visions, no runny nose, no sore throat. Denies any fevers. Appetite is okay. He says he ambulates without support. Lives with his and he gets Meals on Wheels. He was on home hospice in 2019, but later discontinued because he was doing okay. Last admission, amlodipine was stopped and he was placed on Isordil and Lasix. Admission Exam Per Admitting Provider PHYSICAL EXAMINATION: GENERAL: The patient is old and frail old and frail, not in acute distress. VITAL SIGNS: Temperature 36.4, pulse 68, respiratory rate 20, blood pressure 104/84, oxygen 96% on room air. HEENT: Pupils equal, round and reactive to light. Oral mucosa moist. NECK: No JVD, no neck masses. CARDIOVASCULAR: S1 and S2 heard. Regular rate and rhythm. No murmur, no gallop. RESPIRATORY SYSTEM: Normal AP diameter. No accessory muscle use. Diminished bilateral breath sounds. No obvious wheezing or crackles. ABDOMEN: Soft, bowel sounds present, nontender, no distention. CENTRAL NERVOUS SYSTEM: Alert and awake and oriented. Speech is clear. No facial droop. Insight is okay. Obeys simple commands. Moves extremities. EXTREMITIES: No edema, no erythema seen. Principal Diagnosis Acute on chronic systolic failure with reduced EF Acute on chronic respiratory failure with hypoxia Pulmonary hypertension Pleural effusion Acute Kidney Injury Discharge Data Allergies Allergy/AdvReac Type Severity Reaction Status Date / Time No Known Allergies Allergy Unknown Verified 11/08/21 02:57 Consultations 12/13/21 03:48 ED Decision to Admit Stat 12/13/21 08:00 Consult Cardiology Routine Consult Pulmonology Routine 12/13/21 13:18 Consult Palliative Care Routine Hospital Course (1) Chronic respiratory failure with hypoxia: (2) Dyspnea: (3) Acute on chronic HFrEF (heart failure with reduced ejection fraction): Patient is an 86 yr male who presents with shortness of breath. Acute on chronic systolic failure with reduced EF Acute on chronic respiratory failure with hypoxia --CXR:Cardiomegaly and moderate pulmonary edema. Bilateral small to moderate pleural effusions with underlying atelectasis, minimally improved from prior exam. --ECHO:11/08/21: Left ventricle is mildly dilated. Mild concentric LVH. Severe global hypokinesis of left ventricle. Septal motion is consistent with conduction abnormality. EF 15 to 20%. Left atrium is moderately dilated. Aortic valve sclerosis moderate, moderate to severe mitral regurgitation, mild tricuspid regurgitation, moderate sized left pleural effusion, right ventricle systolic pressure is elevated at 50 to 60 mmHg --H/O nonischemic cardiomyopathy diagnosed in 2008 History of biventricular ICD placement: Removed due to infection -Received IV Lasix Continue p.o. Lasix 20 mg twice a day, added Aldactone 12.5 mg daily Monitor volume status, I's and O's, daily weight Appreciate cardiology input Chest x-ray today showed improved pulmonary edema Needs follow-up with cardiology upon discharge Patient's family understands the complexity of the patient's condition and agrees with current management. Acute on chronic respiratory failure with hypoxia Pulmonary hypertension Pleural effusion Acute COPD Exacerbation Patient refused thoracentesis Continue supplemental oxygen 2 L Continue diuresis as above Overall prognosis poor Palliative care consulted Started on Anoro Appreciate pulmonology input BiPAP as needed Continue current inhalers H/O NSVT On amiodarone. BPH On Flomax and finasteride. Depression On Remeron. Hypertension: continue current meds CJ on CKD III Cr: 1.58> 1.32 Avoid nephrotoxic agents as able Monitor renal function H/O LBBB Mild elevation of troponin: likely demand ischemia DVT Px: Heparin SQ Code Status Full Code Disposition Home with HH Total Time Total Time Spent Total Time Spent (In Minutes): 55 minutes Discharge Plan Discharge Items Patient Disposition: Home - Home Health Services Reason For Visit: SOB Discharge Diagnosis: Acute on chronic systolic failure with reduced EF Acute on chronic respiratory failure with hypoxia Pulmonary hypertension Pleural effusion Acute Kidney Injury Activity: Per Instructions section Exercise/Sports: Gradually increase as tolerated Non-emergency contact: Primary Care Provider and Hand Packer/Packager Call non-emergency contact if: you have any medication questions, your symptoms worsen, your pain is concerning for you and you have a fever Follow-up/Referrals: Samuel Henderson DO [Hand Packer/Packager] - (Date & Time 12/23/2021 3:30 PM Provider Samuel Henderson DO Department Cardiology, [facility] ) Taylor Lopze DO [Primary Care Provider] - (Date & Time 12/22/2021 3:00 PM Provider Justin Roberts MD Department [facility] ) Diet: Heart Healthy Diet Texture: Easy to Chew Addtl Attending Provider Instructions: Follow-up with your primary care physician Dr. Lopez on 12/22/2021 3:00 PM Follow-up with your sprue knocker Dr. Henderson on 12/23/2021 3:30 PM Seek immediate medical attention if your symptoms reoccur or worsen Please take all medications as instructed on discharge list below. Please call if you have any questions or problems. You can reach a [facility] hospitalist on duty at [facility] 24 hours a day by calling [phone] Call your Primary Care doctor if any of the following symptoms or problems start or get worse: * Shortness of breath or difficulty breathing * Wake up at night short of breath * Chest pain * Cough * Swelling of your hands, feet, or legs * More fatigued or tired with your normal activity * Palpitations - sudden fast heart beats WEIGHT * Weigh yourself every morning after using the bathroom. * Use the same scale. * Wear the same amount of clothing. * Write your weight down on a chart. * Call your Primary Care doctor if you gain more than 2-3 pounds in 1-2 days. MEDICATIONS * Use this discharge instruction sheet for medication instructions. * Take your medications at the time your doctor ordered. * Do not skip a dose of your medicines. * If you miss a dose of medicine, take it as soon as possible, but DO NOT DOUBLE A DOSE. * Read your medicine information when you get home. * Know all of the side effects of your medicine. If in doubt, ask your pharmacist * Call your Primary Care doctor's office if you have any side effects. * Be sure all of your doctors know what medicine and herbs you take (including cold, flu, and herbal medicine). Take the following with you to your follow-up doctor appointments: * Weight Chart * Medication List * List of questions Do not drink excessive alcohol, beer or wine. Pending Studies at Discharge: No Stand-Alone Forms: [facility], Smoking Cessation Medications and DC Order Prescriptions: New spironolactone 25 mg Tablet 12.5 mg PO DAILY Qty: 30 1RF Anoro Ellipta 62.5-25 mcg/actuation Blister With Device 1 ea inhalation DAILY Qty: 60 1RF Continued aspirin 81 mg Tablet,Delayed Release (Dr/Ec) 81 mg PO QAM mirtazapine 45 mg tablet 22.5 mg PO HS finasteride 5 mg tablet 5 mg PO HS amiodarone 200 mg tablet 100 mg PO QAM Qty: 0 0RF tamsulosin 0.4 mg capsule 0.4 mg PO DAILY acetaminophen 325 mg Tablet 650 mg PO Q4H PRN (Reason: fever or pain) Qty: 90 0RF isosorbide dinitrate 5 mg Tablet 5 mg PO BID Qty: 60 0RF potassium chloride 20 mEq packet 10 meq PO DAILY Changed furosemide 20 mg tablet 20 mg PO BID Qty: 60 1RF Discharge Orders: Discharge Order (Routine); Ordered 12/16/21 Ordered By: Giancarlo Moreno Admission Data Admit Date/Time: 12/13/21 05:14 Attending Provider: Giancarlo Moreno Admit Provider: Edward Dominguez Primary Care Provider: Taylor Lopez Other Providers: Edward Dominguez ; Krzysztof Davidson ; Samule Hednerson ; Rajeev Ba ; Andrey Hart ; Roel Kidd ; Justin Valdez ; Nancy Reid ; Marilou Zamorano ; Norah Bowen ; Fox Valle ; Joseph Garibay ; Ella Harrison
== END 2021-12-16 14:50 | disposition home health service (06) | DRG 291 ==
LOC: ED 02:51 → EDINP 05:14 → SUATTDRO 05:14 → 2S 14:31
DX: J44.1 Chronic obstructive pulmonary disease with (acute) exacerbation; J96.21 Acute and chronic respiratory failure with hypoxia; I27.20 Pulmonary hypertension, unspecified; F32.A Depression, unspecified; I44.7 Left bundle-branch block, unspecified; N18.30 Chronic kidney disease, stage 3 unspecified; N17.9 Acute kidney failure, unspecified; N40.0 Benign prostatic hyperplasia without lower urinary tract symptoms; Z87.891 Personal history of nicotine dependence; I42.8 Other cardiomyopathies; I24.8 Other forms of acute ischemic heart disease; I50.23 Acute on chronic systolic (congestive) heart failure; Z99.81 Dependence on supplemental oxygen; J91.8 Pleural effusion in other conditions classified elsewhere; R64 Cachexia; Z79.82 Long term (current) use of aspirin; Z96.642 Presence of left artificial hip joint; I13.0 Hypertensive heart and chronic kidney disease with heart failure and stage 1 through stage 4 chronic kidney disease, or unspecified chronic kidney disease

== ENCOUNTER 2022-01-14 05:05 | Inpatient (IN) ==
[2022-01-14] MEDS ORDERED: methylPREDNISolone 125 MG/2 ML VIAL IV STA (05:15)
[2022-01-14] MEDS ORDERED: ALBUT/IPRATROP 3MG/0.5MG NEB 3 ML VIAL NEB STA (05:15)
--- NOTE | 2022-01-14 05:20 | Emergency Department Note ---
History of Present Illness General Chief complaint: Shortness of Breath/Dyspnea Stated complaint: SHORT OF BREATH Time Seen by Provider: 01/14/22 05:08 History of Present Illness This 87-year-old with known COPD chronically on 2 L oxygen with CHF presents to the ER complaining of shortness of breath Location: Generalized Quality: Hard to breathe Severity: Moderate Duration: Past few days Timing: Started few days ago Context: Patient was concerned and came in Modifying factors: better with oxygen; worse with activity Patient feels like his COPD is flaring up again. No productive cough. Patient denies chest pain, fevers, vomiting, diarrhea, leg pain or swelling. Pulse ox was in the mid 80s per EMS when they arrived on his 2 L. Home Medications Medication Instructions Recorded Confirmed Type aspirin 81 mg tablet,delayed 81 mg PO QAM 10/27/18 01/14/22 History release mirtazapine 45 mg tablet 22.5 mg PO HS 10/27/18 01/14/22 History finasteride 5 mg tablet 5 mg PO HS 07/31/19 01/14/22 History amiodarone 200 mg tablet 100 mg PO QAM #0 tabs 08/11/19 01/14/22 Rx tamsulosin 0.4 mg capsule 0.4 mg PO DAILY 06/23/21 01/14/22 History acetaminophen 325 mg tablet 650 mg PO Q4H PRN fever or pain 06/25/21 01/14/22 Rx #90 tabs isosorbide dinitrate 5 mg tablet 5 mg PO BID #60 tabs 11/15/21 01/14/22 Rx spironolactone 25 mg tablet 12.5 mg PO DAILY #30 tabs 12/16/21 01/14/22 Rx umeclidinium 62.5 mcg-vilanterol 1 ea inhalation DAILY #60 ea 12/16/21 01/14/22 Rx 25 mcg/actuation powdr for inhalation (Anoro Ellipta) Allergies Allergy/AdvReac Type Severity Reaction Status Date / Time No Known Allergies Allergy Unknown Verified 11/08/21 02:57 Past Med/Surg History Medical History (Updated 01/14/22 @ 05:25 by Shari Beltran PA-C) Biventricular 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 Underwent procedure without any complications; monitored overnight and discharged home. 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 11/01/18 = widely patent coronary arteries History of cardiac cath SEPTEMBER 2018 AT [facility] NO STENTS History of cataract surgery BILATERAL History of colonoscopy History of tonsillectomy and adenoidectomy History of total left hip replacement Family History Mother Hypertension Brother FHx: myocardial infarction HALF-BROTHER Sister Kidney transplant status Social History Smoking Status: Never smoker Tobacco Type: Cigarettes Years Smoked: 50; Number of Years Since Quit: 3; Second Hand Exposure: No; Hx Alcohol Use: No Hx Substance Use: No Preferred Language: Cymraes Communication Ability: Effective Sterilization Specialist Required: No Beliefs That Will Affect Care: None marital status: Current Living Situation: Family Current Living Situation Comment: UNABLE TO CONFIRM AT THIS TIME current occupational status: retired How many Children do You have: 3 Feels Safe at Home: Yes Assistive Devices: Oxygen - Continuous Review of Systems A total of 10 systems reviewed and were otherwise negative Physical Exam Vital Signs Vital Signs - 24 hr 01/14/22 05:31 01/14/22 05:31 01/14/22 05:31 Temperature 36.1 C L Temperature Source Skin Pulse Rate 85 Pulse Rate [Apical] Respiratory Rate 18 Respiratory Effort / Characteristics Non-Labored Spontaneous Labored Respiratory Depth Normal Shallow Respiratory Pattern Regular Blood Pressure 158/96 H Blood Pressure [Left Arm] Blood Pressure Mean 116 Blood Pressure Mean [Left Arm] Blood Pressure Position Lying Pulse Oximetry 98 Oxygen Delivery Method Nasal Cannula Nasal Cannula Nasal Cannula Oxygen Flow Rate 4 4 4 Sepsis Recent Fever Within 48 Hours No Sepsis New/Unexplained Change in Mental Status N/A Sepsis Action Taken by Nursing No Action Required 01/14/22 06:01 Temperature Temperature Source Pulse Rate Pulse Rate [Apical] 84 Respiratory Rate 20 Respiratory Effort / Characteristics Respiratory Depth Respiratory Pattern Blood Pressure Blood Pressure [Left Arm] 137/69 Blood Pressure Mean Blood Pressure Mean [Left Arm] 91 Blood Pressure Position Pulse Oximetry 97 Oxygen Delivery Method Nasal Cannula Oxygen Flow Rate 3 Sepsis Recent Fever Within 48 Hours Sepsis New/Unexplained Change in Mental Status Sepsis Action Taken by Nursing VITALS: Vitals are noted on the nurse's note and reviewed by myself. Vital signs reviewed. GENERAL: Male on oxygen having a hard time speaking in full sentences SKIN: The skin was without rashes, erythema, edema, or bruising. There is no tenting of the skin. Capillary reflex less than 2 seconds. HEAD: Normocephalic atraumatic. EARS: External auditory canals clear, EYES: Pupils equal round and reactive to light and accommodation. Conjunctivae without injection, sclerae without icterus. Extraocular movements intact. NOSE: Patent, turbinates without inflammation or discharge MOUTH: Mucous membranes moist. Pharynx without erythema or exudate. Uvula midline. Airway patent. Tongue does not deviate. NECK: Supple without nuchal rigidity. No lymphadenopathy. No thyromegaly. Cervical spine is nontender. No JVD. HEART: Regular rate and rhythm LUNGS: Diffuse inspiratory and end expiratory wheezes. mild retractions / accessory muscle use. ABDOMEN: Positive bowel sounds x 4. Normal tympanic percussion. Soft, nontender, without masses or organomegaly. Gandhi sign negative. No guarding or rebound tenderness. No CVA tenderness MUSCULOSKELETAL: No muscle atrophy, erythema, or edema noted. NEURO: Patient was alert and oriented to person place and time. Normal sensation to light and sharp touch. No focal neurological deficits. Course Administered Medications Discontinued Medications Albuterol (Albut/Ipratrop 3mg/0.5mg Neb 3 Ml Vial) 3 ml NEB NOW STA; Protocol Stop: 01/14/22 05:16 Last Admin: 01/14/22 05:27 Dose: 3 ml Documented By: Furosemide (Furosemide Inj 20 Mg/2 Ml Vial) 20 mg IV ONE ONE Stop: 01/14/22 05:49 Last Admin: 01/14/22 05:57 Dose: 20 mg Documented By: Methylprednisolone (Methylprednisolone 125 Mg/2 Ml Vial) 125 mg IV NOW STA Stop: 01/14/22 05:16 Last Admin: 01/14/22 05:27 Dose: 125 mg Documented By: BILL Medical Decision Making Medical Records Attestation: I reviewed the patient's medical records. Home Medications Current Medication List: was personally reviewed by me Laboratory Data Attestation: I reviewed the patient's lab results. Result diagrams: 01/14/22 05:20 01/14/22 05:20 Lab Results 01/14/22 01/14/22 01/14/22 Range/Units 05:20 05:20 05:20 WBC 9.87 (4.8-10.8) K/ul RBC 3.54 L (4.63-6.08) M/uL Hgb 11.8 L (14.0-18.0) g/dl Hct 36.1 L (40.1-51.0) % MCV 102.0 H (80.0-100.0) fL MCH 33.3 (25.0-34.0) pg MCHC 32.7 (32.0-36.0) g/dL RDW Std Deviation 48.5 H (36.4-46.3) fL RDW Coeff of Ty 12.8 (11.5-14.5) % Plt Count 186 (130-400) K/uL MPV 11.8 (9.4-12.4) fL Immature Gran % (Auto) 0.3 % Neut % (Auto) 73.2 % Lymph % (Auto) 15.8 % Woodruff % (Auto) 5.8 % Eos % (Auto) 4.0 % Baso % (Auto) 0.9 % Neut # (Auto) 7.23 H (1.4-6.5) K/uL Lymph # (Auto) 1.56 (1.2-3.4) K/uL Woodruff # (Auto) 0.57 (0.24-0.82) K/uL Eos # (Auto) 0.39 (0-0.50) K/uL Baso # (Auto) 0.09 (0-0.2) K/uL Immature Gran # (Auto) 0.03 H (0.00-0.02) K/uL APTT (21.0-31.0) Seconds PTT Ratio VBG pH (7.36-7.41) VBG pCO2 (38-50) mmHg VBG pO2 mmHg VBG HCO3 mmol/L VBG O2 Saturation % VBG Base Excess mEq/L Sodium 138 (136-145) mmol/L Potassium 4.0 (3.5-5.1) mmol/L Chloride 101 (98-107) mmol/L Carbon Dioxide 30 (21-32) mmol/L Anion Gap 7 (3-11) BUN 24 H (6-23) mg/dl Creatinine 1.19 (0.6-1.4) mg/dl Est Cr Clr Drug Dosing 35.9 ml/min Est GFR ( Amer) 63.7 ml/min Est GFR (Non-Af Amer) 55.0 ml/min BUN/Creatinine Ratio 20.2 H (10-20) Glucose 128 H (70-99(Fasting)) mg/dl Calcium 9.0 (8.5-10.1) mg/dl Magnesium 2.0 (1.7-2.4) mg/dl Total Bilirubin 0.5 (0.2-1.0) mg/dl AST 16 (13-39) U/L ALT 8 (7-52) U/L Alkaline Phosphatase 64 (34-104) U/L Troponin I High Sens 31.5 H D (0-20) pg/ml B-Natriuretic Peptide 729 H (0-100) pg/ml Total Protein 7.2 (6.0-8.3) gm/dl Albumin 3.7 (3.4-5.0) gm/dl Globulin 3.5 (2.5-4.0) gm/dl Albumin/Globulin Ratio 1.1 (0.9-2) SARS-CoV-2 (PCR) (Negative) 01/14/22 01/14/22 01/14/22 Range/Units 05:20 05:22 05:23 WBC (4.8-10.8) K/ul RBC (4.63-6.08) M/uL Hgb (14.0-18.0) g/dl Hct (40.1-51.0) % MCV (80.0-100.0) fL MCH (25.0-34.0) pg MCHC (32.0-36.0) g/dL RDW Std Deviation (36.4-46.3) fL RDW Coeff of Ty (11.5-14.5) % Plt Count (130-400) K/uL MPV (9.4-12.4) fL Immature Gran % (Auto) % Neut % (Auto) % Lymph % (Auto) % Woodruff % (Auto) % Eos % (Auto) % Baso % (Auto) % Neut # (Auto) (1.4-6.5) K/uL Lymph # (Auto) (1.2-3.4) K/uL Woodruff # (Auto) (0.24-0.82) K/uL Eos # (Auto) (0-0.50) K/uL Baso # (Auto) (0-0.2) K/uL Immature Gran # (Auto) (0.00-0.02) K/uL APTT 26.8 (21.0-31.0) Seconds PTT Ratio 1.0 VBG pH 7.34 L (7.36-7.41) VBG pCO2 59 H (38-50) mmHg VBG pO2 20 mmHg VBG HCO3 32 mmol/L VBG O2 Saturation < 60.0 % VBG Base Excess 4.3 mEq/L Sodium (136-145) mmol/L Potassium (3.5-5.1) mmol/L Chloride (98-107) mmol/L Carbon Dioxide (21-32) mmol/L Anion Gap (3-11) BUN (6-23) mg/dl Creatinine (0.6-1.4) mg/dl Est Cr Clr Drug Dosing ml/min Est GFR ( Amer) ml/min Est GFR (Non-Af Amer) ml/min BUN/Creatinine Ratio (10-20) Glucose (70-99(Fasting)) mg/dl Calcium (8.5-10.1) mg/dl Magnesium (1.7-2.4) mg/dl Total Bilirubin (0.2-1.0) mg/dl AST (13-39) U/L ALT (7-52) U/L Alkaline Phosphatase (34-104) U/L Troponin I High Sens (0-20) pg/ml B-Natriuretic Peptide (0-100) pg/ml Total Protein (6.0-8.3) gm/dl Albumin (3.4-5.0) gm/dl Globulin (2.5-4.0) gm/dl Albumin/Globulin Ratio (0.9-2) SARS-CoV-2 (PCR) NEGATIVE (Negative) Imaging Data Attestation: I personally reviewed and interpreted this imaging study as follows: Radiologist's Impression: Chest X-Ray 01/14/22 05:15 XR chest 1V portable CLINICAL HISTORY: Atypical chest pain. COMPARISON STUDY: Chest CT November 08, 2021. Chest radiograph December 16, 2021. FINDINGS: No pneumothorax. Moderate bilateral pleural effusions with associated bibasilar opacities have increased. Pulmonary edema has progressed. Cardiomegaly is noted. Underlying emphysema is better depicted on prior chest CT. IMPRESSION: Interstitial pulmonary edema with moderate bilateral pleural effusions and associated bibasilar opacities. Findings have progressed when compared to exam of December 16, 2021. ACT 112: Negative or not required by law. Electronically signed by: Jan Dunham M.D. 01/14/2022 6:16 AM [facility] Narrative Prior records/ancillary studies reviewed. Triage Nursing notes reviewed. Additional history obtained from EMS The patient's history was concerning for respiratory difficulties. Differential diagnosis: Etiologies such as infections, reactive airway disease, pneumonia, pneumothorax, COPD, CHF, cardiac ischemia, pulmonary embolism, musculoskeletal, gastrointestinal, as well as others were entertained. Physical examination: As above. ER treatment provided: An order was placed for continuous cardiac monitoring. The monitor shows a rate of 60-1 50 with a sinus rhythm. Nebulizers steroids Lasix On reassessment the patient felt better. Diagnostic interpretation by me: The electrocardiogram was ordered for dyspnea EKG: Normal sinus, left bundle, no acute ST-T wave changes. Impression normal sinus rhythm with a left bundle branch block interpreted by myself I think arrhythmia is unlikely. EKG shows no interval abnormalities such as QT prolongation or WPW. There are no findings to suggest Brugada syndrome. Cardiac monitoring in the emergency department reveals no tachycardic or bradycardic dysrhythmia. Hypertrophic cardiomyopathy was considered but there are no clear historical elements pointing toward this. EKG is not suggestive. The QRS voltage is not extremely large No worrisome leukocytosis, VBG reviewed Elevated troponin, elevated BNP Imaging studies: Chest x-ray with pulmonary congestion/edema per my interpretation. No free air. Consultation: A consultation was placed with the hospitalist. The case was discussed and diagnostics were reviewed. The patient was evaluated in the ER for further treatment. This appears to be consistent with COPD and CHF exacerbation. Patient still feels quite short of breath. Medicine is consulted. He will be evaluated for admission. Pulse ox at home was in the mid 80s. Patient improved with increasing oxygen. Patient was given steroids and nebulizer as above. By the evaluation outlined above emergent etiologies such as pulmonary embolism, reactive airway disease, pneumothorax, musculoskeletal, serious bacterial infections, as well as others were deemed relatively unlikely. The pt informed about the findings as listed above. All questions were answered and pleased with the treatment. The chart was completed utilizing [email or web address] Speech voice recognition software. Grammatical errors, random word insertions, pronoun errors, and incomplete sentences are an occassional consequence of this system due to software limitations, ambient noise, and hardware issues. Any formal questions or concer ns about the content, text, or information contained within the body of this dictation should be directly addressed to the physician bakery assistant for clarification. Impression & Plan Acute exacerbation of chronic obstructive pulmonary disease, Acute CHF (congestive heart failure) Discharge Plan Visit Data Chief Complaint: Shortness of Breath/Dyspnea Stated Complaint: SHORT OF BREATH ED Provider: Justin Cohn ED Midlevel Provider: Shari Beltran Discharge Problem: Acute exacerbation of chronic obstructive pulmonary disease, Acute CHF (congestive heart failure) Patient Disposition: Admitted As Inpatient Condition: Fair Forms Stand Alone Forms: [employer] Prescriptions Prescriptions: No Action aspirin 81 mg Tablet,Delayed Release (Dr/Ec) 81 mg PO QAM mirtazapine 45 mg tablet 22.5 mg PO HS finasteride 5 mg tablet 5 mg PO HS amiodarone 200 mg tablet 100 mg PO QAM Qty: 0 0RF tamsulosin 0.4 mg capsule 0.4 mg PO DAILY acetaminophen 325 mg Tablet 650 mg PO Q4H PRN (Reason: fever or pain) Qty: 90 0RF isosorbide dinitrate 5 mg Tablet 5 mg PO BID Qty: 60 0RF spironolactone 25 mg Tablet 12.5 mg PO DAILY Qty: 30 1RF Anoro Ellipta 62.5-25 mcg/actuation Blister With Device 1 ea inhalation DAILY Qty: 60 1RF Referrals Referrals: Taylor Lopez DO [Outside Practitioners] -
[2022-01-14 05:41] LABS: Basophils # (auto) 0.09 K/uL (0-0.2); Basophils % (auto) 0.9 %; Eosinophils # (auto) 0.39 K/uL (0-0.50); Hematocrit (blood only) 36.1 % (40.1-51.0); Hemoglobin 11.8 g/dl (14.0-18.0); Immature Granulocytes # (auto) 0.03 K/uL (0.00-0.02); Immature Granulocytes % (auto) 0.3 %; Lymphocytes # (auto) 1.56 K/uL (1.2-3.4); Lymphocytes % (auto) 15.8 %; Mean Corpuscular Hemoglobin 33.3 pg (25.0-34.0); Mean Corpuscular Hgb Conc 32.7 g/dL (32.0-36.0); Mean Platelet Volume 11.8 fL (9.4-12.4); Monocytes # (auto) 0.57 K/uL (0.24-0.82); Monocytes % (auto) 5.8 %; Neutrophils # (auto) 7.23 K/uL (1.4-6.5); Neutrophils % (auto) 73.2 %; Platelet Count 186 K/uL (130-400); RDW Coefficient of Variation 12.8 % (11.5-14.5); RDW Standard Deviation 48.5 fL (36.4-46.3); Red Blood Count 3.54 M/uL (4.63-6.08); White Blood Count 9.87 K/ul (4.8-10.8)
[2022-01-14] MEDS ORDERED: FUROSEMIDE INJ 20 MG/2 ML VIAL IV ONE (05:48)
[2022-01-14 05:54] LABS: Base Excess VBG 4.3 mEq/L; HCO3 VBG 32 mmol/L; Oxygen Saturation VBG < 60.0 %; PCO2 VBG 59 mmHg (38-50); PO2 VBG 20 mmHg; pH VBG 7.34 (7.36-7.41)
[2022-01-14 05:54] LABS: Partial Thromboplastin Time 26.8 Seconds (21.0-31.0)
[2022-01-14 06:02] LABS: Albumin Globulin Ratio 1.1 (0.9-2); Albumin Level 3.7 gm/dl (3.4-5.0); BUN Creatinine Ratio 20.2 (10-20); Bilirubin,Total 0.5 mg/dl (0.2-1.0); Creatinine Clr Calc Pharmacy 35.9 ml/min; Est GFR (African American) 63.7 ml/min; Globulin 3.5 gm/dl (2.5-4.0); Total Protein 7.2 gm/dl (6.0-8.3)
[2022-01-14 06:07] LABS: Troponin I High Sensitivity 31.5 pg/ml (0-20)
--- NOTE | 2022-01-14 06:18 | XRay Report ---
XR chest 1V portable CLINICAL HISTORY: Atypical chest pain. COMPARISON STUDY: Chest CT November 08, 2021. Chest radiograph December 16, 2021. FINDINGS: No pneumothorax. Moderate bilateral pleural effusions with associated bibasilar opacities h ave increased. Pulmonary edema has progressed. Cardiomegaly is noted. Underlying emphysema is better depicted on prior chest CT. IMPRESSION: Interstitial pulmonary edema with moderate bilateral pleural effusions and associated bib asilar opacities. Findings have progressed when compared to exam of December 16, 2021. ACT 112: Negative or not required by law. Electronically signed by: Jan Dunham M.D. 01/14/2022 6:16 AM
--- NOTE | 2022-01-14 06:45 | History & Physical Report ---
Date of Service January 14, 2022 Assessment & Plan (1) Acute hypoxemic respiratory failure: Plan: Acute on chronic hx chronic respiratory failure secondary to COPD on home O2 Secondary to decompensated heart failure hx chronic systolic heart failure (15 to 20%, TTE 2021) status post ICD status post removal secondary to infection hx valvular heart disease (moderate to severe MR, mild TR), pulmonary hypertension, troponin elevation secondary to illness hx CAD as per records chronic LBBB hypertension, slightly elevated chronic anemia, hemoglobin at baseline Hyperglycemia likely prediabetes, hemoglobin A1c of 5.9 from 2019 past tobacco/alcohol abuse PCU Supplemental O2 Diuretic Rx Strict I/Os, daily weights, CHF education, fluid restriction Cardiology consult Re: Recurrent CHF Consider Palliative care consultation for possible end-stage disease given recurrent admissions if Cardiology service agreeable. Follow troponin Update hemoglobin A1c DVT prophylaxis. Heparin subcu Full code Text document was generated using [email or web address] recognition software. It may contain grammatical or spelling errors. Kindly contact undersigned for clarification of any documentation item in question. History of Present Illness Chief Complaint: Worsening shortness of breath Primary Care Provider: Justin Roberts MD History obtained from patient and records. Medical history significant for chronic respiratory failure secondary to COPD on home O2, chronic systolic heart failure (15 to 20%, TTE 2021) status post ICD status post removal secondary to infection, CAD as per records, chronic LBBB, valvular heart disease (moderate to severe MR, mild TR), pulmonary hypertension, hypertension, hyperlipidemia, chronic anemia (baseline hemoglobin 11 ), past tobacco/alcohol abuse. Monthly admissions since October 2021 for decompensated heart failure. [place] [facility] [place]. Patient not felt to have end-stage CHF as per provider note. Patient spironolactone discontinued due to high outpatient serum potassium lab work. Last night, patient noted worsening shortness of breath especially on exertion. Usual cough symptoms. No chest pain. Unquantified weight gain which patient attributes to eating more than usual. At the ER, patient received Solu-Medrol, neb treatment and Lasix. Patient currently feeling much better. 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 Allergies Allergy/AdvReac Type Severity Reaction Status Date / Time No Known Allergies Allergy Unknown Verified 11/08/21 02:57 Home Medications Medication Instructions Recorded Confirmed Type aspirin 81 mg tablet,delayed 81 mg PO QAM 10/27/18 01/14/22 History release mirtazapine 45 mg tablet 22.5 mg PO HS 10/27/18 01/14/22 History finasteride 5 mg tablet 5 mg PO HS 07/31/19 01/14/22 History amiodarone 200 mg tablet 100 mg PO QAM #0 tabs 08/11/19 01/14/22 Rx tamsulosin 0.4 mg capsule 0.4 mg PO DAILY 06/23/21 01/14/22 History acetaminophen 325 mg tablet 650 mg PO Q4H PRN fever or pain 06/25/21 01/14/22 Rx #90 tabs isosorbide dinitrate 5 mg tablet 5 mg PO BID #60 tabs 11/15/21 01/14/22 Rx umeclidinium 62.5 mcg-vilanterol 1 ea inhalation DAILY #60 ea 12/16/21 01/14/22 Rx 25 mcg/actuation powdr for inhalation (Anoro Ellipta) furosemide 20 mg tablet 20 mg PO BID 01/14/22 01/14/22 History Past Med/Surg History Medical History (Updated 01/14/22 @ 11:15 by Andrey Hart DO) 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 Underwent procedure without any complications; monitored overnight and discharged home. 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 11/01/18 = widely patent coronary arteries History of cardiac cath SEPTEMBER 2018 AT [facility] NO STENTS History of cataract surgery BILATERAL History of colonoscopy History of tonsillectomy and adenoidectomy History of total left hip replacement Family History Mother Hypertension Brother FHx: myocardial infarction HALF-BROTHER Sister Kidney transplant status Social History Smoking Status: Never smoker Tobacco Type: Cigarettes Years Smoked: 50; Number of Years Since Quit: 3; Second Hand Exposure: No; Hx Alcohol Use: No Hx Substance Use: No Preferred Language: Sri Lankan Communication Ability: Effective Coating Inspector Required: No Beliefs That Will Affect Care: None marital status: Current Living Situation: Family Current Living Situation Comment: UNABLE TO CONFIRM AT THIS TIME current occupational status: retired How many Children do You have: 3 Feels Safe at Home: Yes Assistive Devices: Oxygen - Continuous Review of Systems Review of Systems: As per HPI, all other systems reviewed and negative Physical Exam Physical Exam: GENERAL: Slightly uncomfortable, underweight, chronically ill, no respiratory distress SKIN: Pallor, warm HEENT: Alopecia, pale palpebral conjunctivae, no ptosis, dry buccal mucosa, nasal cannula in place NECK : Supple, distended neck veins, no tenderness CHEST : Decreased breath sounds , no tenderness HEART : diminished S1-S2, systolic murmur ABDOMEN: Some distention, nontender EXTREMITIES : No LE swelling/tenderness, no other conspicuous deformities noted NEUROLOGIC : Coherent, no facial asymmetry, no other gross focality Results & Data Results & Data ([facility]) Vital Signs (Past 12 Hours) Vital Signs Temp Pulse Pulse Resp BP BP Pulse Ox 01/14/22 06:01 84 20 137/69 97 01/14/22 05:31 01/14/22 05:31 01/14/22 05:31 36.1 C L 85 18 158/96 H 98 O2 Del Method O2 Flow Rate 01/14/22 06:01 Nasal Cannula 3 01/14/22 05:31 Nasal Cannula 4 01/14/22 05:31 Nasal Cannula 4 01/14/22 05:31 Nasal Cannula 4 Laboratory Results Laboratory Results WBC 9.87 K/ul (4.8-10.8) 01/14/22 05:20 RBC 3.54 M/uL (4.63-6.08) L 01/14/22 05:20 Hgb 11.8 g/dl (14.0-18.0) L 01/14/22 05:20 Hct 36.1 % (40.1-51.0) L 01/14/22 05:20 MCV 102.0 fL (80.0-100.0) H 01/14/22 05:20 MCH 33.3 pg (25.0-34.0) 01/14/22 05:20 MCHC 32.7 g/dL (32.0-36.0) 01/14/22 05:20 RDW Std Deviation 48.5 fL (36.4-46.3) H 01/14/22 05:20 RDW Coeff of Ty 12.8 % (11.5-14.5) 01/14/22 05:20 Plt Count 186 K/uL (130-400) 01/14/22 05:20 MPV 11.8 fL (9.4-12.4) 01/14/22 05:20 Immature Gran % (Auto) 0.3 % 01/14/22 05:20 Neut % (Auto) 73.2 % 01/14/22 05:20 Lymph % (Auto) 15.8 % 01/14/22 05:20 Vigo % (Auto) 5.8 % 01/14/22 05:20 Eos % (Auto) 4.0 % 01/14/22 05:20 Baso % (Auto) 0.9 % 01/14/22 05:20 Neut # (Auto) 7.23 K/uL (1.4-6.5) H 01/14/22 05:20 Lymph # (Auto) 1.56 K/uL (1.2-3.4) 01/14/22 05:20 Vigo # (Auto) 0.57 K/uL (0.24-0.82) 01/14/22 05:20 Eos # (Auto) 0.39 K/uL (0-0.50) 01/14/22 05:20 Baso # (Auto) 0.09 K/uL (0-0.2) 01/14/22 05:20 Immature Gran # (Auto) 0.03 K/uL (0.00-0.02) H 01/14/22 05:20 APTT 26.8 Seconds (21.0-31.0) 01/14/22 05:22 PTT Ratio 1.0 01/14/22 05:22 VBG pH 7.34 (7.36-7.41) L 01/14/22 05:20 VBG pCO2 59 mmHg (38-50) H 01/14/22 05:20 VBG pO2 20 mmHg 01/14/22 05:20 VBG HCO3 32 mmol/L 01/14/22 05:20 VBG O2 Saturation < 60.0 % 01/14/22 05:20 VBG Base Excess 4.3 mEq/L 01/14/22 05:20 Sodium 138 mmol/L (136-145) 01/14/22 05:20 Potassium 4.0 mmol/L (3.5-5.1) 01/14/22 05:20 Chloride 101 mmol/L (98-107) 01/14/22 05:20 Carbon Dioxide 30 mmol/L (21-32) 01/14/22 05:20 Anion Gap 7 (3-11) 01/14/22 05:20 BUN 24 mg/dl (6-23) H 01/14/22 05:20 Creatinine 1.19 mg/dl (0.6-1.4) 01/14/22 05:20 Est Cr Clr Drug Dosing 35.9 ml/min 01/14/22 05:20 Est GFR ( Amer) 63.7 ml/min 01/14/22 05:20 Est GFR (Non-Af Amer) 55.0 ml/min 01/14/22 05:20 BUN/Creatinine Ratio 20.2 (10-20) H 01/14/22 05:20 Glucose 128 mg/dl (70-99(Fasting)) H 01/14/22 05:20 Calcium 9.0 mg/dl (8.5-10.1) 01/14/22 05:20 Magnesium 2.0 mg/dl (1.7-2.4) 01/14/22 05:20 Total Bilirubin 0.5 mg/dl (0.2-1.0) 01/14/22 05:20 AST 16 U/L (13-39) 01/14/22 05:20 ALT 8 U/L (7-52) 01/14/22 05:20 Alkaline Phosphatase 64 U/L (34-104) 01/14/22 05:20 Troponin I High Sens 31.5 pg/ml (0-20) H D 01/14/22 05:20 B-Natriuretic Peptide 729 pg/ml (0-100) H 01/14/22 05:20 Total Protein 7.2 gm/dl (6.0-8.3) 01/14/22 05:20 Albumin 3.7 gm/dl (3.4-5.0) 01/14/22 05:20 Globulin 3.5 gm/dl (2.5-4.0) 01/14/22 05:20 Albumin/Globulin Ratio 1.1 (0.9-2) 01/14/22 05:20 SARS-CoV-2 (PCR) NEGATIVE (Negative) 01/14/22 05:23 Impressions Chest X-Ray 01/14/22 05:15 XR chest 1V portable CLINICAL HISTORY: Atypical chest pain. COMPARISON STUDY: Chest CT November 08, 2021. Chest radiograph December 16, 2021. FINDINGS: No pneumothorax. Moderate bilateral pleural effusions with associated bibasilar opacities have increased. Pulmonary edema has progressed. Cardiomegaly is noted. Underlying emphysema is better depicted on prior chest CT. IMPRESSION: Interstitial pulmonary edema with moderate bilateral pleural effusions and associated bibasilar opacities. Findings have progressed when compared to exam of December 16, 2021. ACT 112: Negative or not required by law. Electronically signed by: Jan Dunham M.D. 01/14/2022 6:16 AM Diagnostic Findings EKG as per my interpretation :Rate 90, NSR, LAD, LAFB, LBBB
[2022-01-14 07:28] LABS: Estimated Average Glucose 117 mg/dl; Hemoglobin A1C 5.7 % (4.5-5.6)
[2022-01-14] MEDS ORDERED: NITROGLYCERIN SL 0.4 MG/TAB TAB SL PRN (10:13)
[2022-01-14] MEDS ORDERED: PROMETHAZINE HCL 6.25 MG in SODIUM CHLORIDE 0.9% 50 ML IV PRN (10:13)
[2022-01-14] MEDS ORDERED: LEVALBUTEROL 1.25MG/0.5ML NEB INH PRN (10:13)
[2022-01-14] MEDS ORDERED: IPRATROPIUM BROMIDE NEB SOLN 0.02% 2.5 ML VIAL INH PRN (10:13)
[2022-01-14] MEDS ORDERED: XOPENEX/ATROVENT 1.25mg/0.5MG NEB COMBO NEB PRN (10:13)
[2022-01-14] MEDS ORDERED: ACETAMINOPHEN 325 MG TAB PO PRN (10:13)
--- NOTE | 2022-01-14 11:20 | Cardiology Consultation ---
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 Aldactone recently discontinued in the outpatient setting due to renal insufficiency and hyperkalemia with a elevated serum potassium level 5.6. Treatment options are limited due to patient's chronic renal insufficiency and hyponatremia. Recommend IV furosemide 40 mg twice daily. Follow fluid balance, daily weight, GFR, and electrolytes. Continue isosorbide dinitrate, amiodarone, and low-dose aspirin. No indication for repeat echocardiogram at this time. History of Present Illness Reason for Consultation: CHF Requesting Physician: Dr. Moreno Attending Physician: Giancarlo Moreno MD History of Present Illness 87-year-old patient presented to the emergency department due to shortness of breath cough and tachycardia occurring in the middle of the night. In the ER he was treated with Solu-Medrol and IV Lasix. Currently feeling better. Fluid balance -900 cc. Aldactone recently discontinued due to hyperkalemia. Denies any noncompliance with current cardiovascular medications. History of end-stage cardiomyopathy with multiple hospitalizations over the past 6 months. Currently patient is resting comfortably. Seated upright without conversational dyspnea. Denies any palpitations, lightheadedness, dizziness. Chronic orthopnea unchanged. No lower extremity edema. Weight is up nearly 15 pounds per built in bed scale from most recent hospitalization. Chest x-ray demonstrating pulmonary edema with bilateral pleural effusions. Previous undergone implantation of a biventricular pacemaker AICD without clinical improvement., Device was removed due to pocket infection and not reimplanted. Allergies Allergy/AdvReac Type Severity Reaction Status Date / Time No Known Allergies Allergy Unknown Verified 11/08/21 02:57 Home Medications Medication Instructions Recorded Confirmed Type aspirin 81 mg tablet,delayed 81 mg PO QAM 10/27/18 01/14/22 History release mirtazapine 45 mg tablet 22.5 mg PO HS 10/27/18 01/14/22 History finasteride 5 mg tablet 5 mg PO HS 07/31/19 01/14/22 History amiodarone 200 mg tablet 100 mg PO QAM #0 tabs 08/11/19 01/14/22 Rx tamsulosin 0.4 mg capsule 0.4 mg PO DAILY 06/23/21 01/14/22 History acetaminophen 325 mg tablet 650 mg PO Q4H PRN fever or pain 06/25/21 01/14/22 Rx #90 tabs isosorbide dinitrate 5 mg tablet 5 mg PO BID #60 tabs 11/15/21 01/14/22 Rx umeclidinium 62.5 mcg-vilanterol 1 ea inhalation DAILY #60 ea 12/16/21 01/14/22 Rx 25 mcg/actuation powdr for inhalation (Anoro Ellipta) furosemide 20 mg tablet 20 mg PO BID 01/14/22 01/14/22 History Patient History Medical History (Updated 01/14/22 @ 11:15 by Andrey Hart DO) 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 Underwent procedure without any complications; monitored overnight and discharged home. 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 11/01/18 = widely patent coronary arteries History of cardiac cath SEPTEMBER 2018 AT [facility] NO STENTS History of cataract surgery BILATERAL History of colonoscopy History of tonsillectomy and adenoidectomy History of total left hip replacement Family History Mother Hypertension Brother FHx: myocardial infarction HALF-BROTHER Sister Kidney transplant status Social History Smoking Status: Never smoker Tobacco Type: Cigarettes Years Smoked: 50; Number of Years Since Quit: 3; Second Hand Exposure: No; Hx Alcohol Use: No Hx Substance Use: No Preferred Language: Chinese Communication Ability: Effective Nurse Staff Required: No Beliefs That Will Affect Care: None marital status: Current Living Situation: Family Current Living Situation Comment: UNABLE TO CONFIRM AT THIS TIME current occupational status: retired How many Children do You have: 3 Feels Safe at Home: Yes Assistive Devices: Oxygen - Continuous Review of Systems Review of Systems: All systems reviewed & are unremarkable except as noted in Subjective Physical Exam Constitutional: + cachectic Respiratory: no respiratory distress and no labored breathing Auscultation: + diminished lung sounds (Bilateral) and + rales (Bases bilateral); no wheezes Cardiovascular: Rate/Rhythm: regular rate and regular rhythm Heart Sounds: normal S1 and normal S2; no murmur Vessels: + JVD Extremities: no edema Gastrointestinal (Abdomen): Inspection/Auscultation: abdomen normal to inspection and normal bowel sounds; abdomen not distended P ercussion/Palpation: abdomen soft; abdomen nontender, no guarding and abdomen not rigid Neurologic: CN's II-XI intact bilaterally and moves all extremities; no focal motor deficits Psychiatric: A+Ox3, euthymic affect Results & Data ([facility]) Vital Signs (Past 12 Hours) Vital Signs Temp Pulse Pulse Resp BP BP Pulse Ox 01/14/22 08:00 73 20 138/70 98 01/14/22 07:00 85 20 159/76 H 96 01/14/22 06:01 84 20 137/69 97 01/14/22 05:31 01/14/22 05:31 01/14/22 05:31 36.1 C L 85 18 158/96 H 98 O2 Del Method O2 Flow Rate 01/14/22 08:00 Nasal Cannula 4 01/14/22 07:00 Nasal Cannula 4 01/14/22 06:01 Nasal Cannula 3 01/14/22 05:31 Nasal Cannula 4 01/14/22 05:31 Nasal Cannula 4 01/14/22 05:31 Nasal Cannula 4
[2022-01-14] MEDS: HEPARIN SOD 5,000 UNIT/0.5 ML VIAL SQ SCH ×2 (11:45→21:26)
[2022-01-14] MEDS: ISOSORBIDE DINITRATE 5 MG TAB PO SCH (11:45)
[2022-01-14] MEDS: ASPIRIN 81 MG ECTAB PO SCH (11:45)
[2022-01-14] MEDS: TAMSULOSIN HCL 0.4 MG CAP PO SCH (11:45)
[2022-01-14] MEDS: POTASSIUM CHLORIDE CRTAB 20 MEQ TABCR PO SCH ×2 (11:45→20:13)
[2022-01-14] MEDS: AMIODARONE 200 MG TAB PO SCH (11:45)
[2022-01-14] MEDS: UMECLIDINIUM/VILANTEROL 62.5/25MCG 7 PUFFS/INHALER INH SCH (11:46)
--- NOTE | 2022-01-14 14:19 | Electrocardiogram Report ---
Test Reason : Blood Pressure : / mmHG Vent. Rate : 089 BPM Atrial Rate : 089 BPM P-R Int : 174 ms QRS Dur : 172 ms QT Int : 422 ms P-R-T Axes : 042 -22 129 degrees QTc Int : 513 ms Normal sinus rhythm Left bundle branch block Abnormal ECG When compared with ECG of 13-DEC-2021 03:05, Premature ventricular complexes are no longer Present Confirmed by Moiz Payton ([id number]) on 01/14/2022 2:19:05 PM Referred By: REFERRED SELF Confirmed By:Moiz Payton
--- NOTE | 2022-01-14 16:24 | Hospitalist Progress Note ---
Date of Service January 14, 2022 Assessment & Plan (1) Acute hypoxemic respiratory failure: Plan: Acute on chronic systolic and diastolic CHF Pleural effusion Chronic left bundle branch block Chronic respiratory failure with Hypoxia on home O2 H/O COPD S/P ICD S/P removal secondary to infection in the past Mild valvular heart disease, pulmonary hypertension --CXR:Interstitial pulmonary edema with moderate bilateral pleural effusions and associated bibasilar opacities. Findings have progressed when compared to exam of December 16, 2021. -ECHO from 11/08/21: Mild concentric LVH. Severe global hypokinesis of left ventricle. Septal motion consistent with conduction abnormality. EF 15 to 20%. Left atrium moderately dilated. Left ventricle mildly dilated. Moderate to severe mitral regurgitation. Mild tricuspid regurgitation. -Continue IV Lasix 40 mg twice daily Monitor I's and O's, electrolytes Appreciate cardiology input Continue supplemental oxygen as needed Chronic Troponin elevation Likely demand Ischemia due to above H/O CAD Continue aspirin Denies any chest pain Hypertension Home medications Monitor H/O NSVT On amiodarone. BPH On Flomax and finasteride. Prediabetes HbA1C: 5.7 CKD III Monitor renal function Past tobacco/alcohol abuse As per records DVT Px: Heparin SQ Code Status Full code Admission and Anticipated Discharge Date Admission Date: January 14, 2022 Subjective Patient is seen and examined at bedside States dyspnea is slightly better since hospitalization Palpitations resolved Denies any chest pain, dizziness, nausea, abdominal pain Offers no other complaints Review of Systems Review of Systems: All systems reviewed & are unremarkable except as noted in Subjective Physical Exam Physical Exam: Physical Exam: Vitals signs as noted above General Appearance:Thin, frail, elderly, Chronic ill appearing, no apparent distress, +Cachectic Head: normocephalic, Atraumatic Eyes: normal inspection, EOMI Neck: supple, Trachea midline Respiratory/Chest: Decreased breath sounds, basal rales, No accessory muscle use Cardiovascular: S1, S2, + murmur Abdomen/GI:Soft, Non tender, Bowel sounds present Extremities/Musculoskeletal:normal inspection, no edema Neurologic/Psych:AAOX3, grossly no focal neurological deficits Skin: normal color, warm Results & Data Results & Data ([facility]) Vital Signs (Past 12 Hours) Vital Signs Temp Pulse Pulse Resp BP BP Pulse Ox 01/14/22 11:00 37.0 C 90 20 124/59 L 97 01/14/22 11:31 01/14/22 11:31 36.9 C 83 20 135/65 99 01/14/22 08:00 73 20 138/70 98 01/14/22 07:00 85 20 159/76 H 96 01/14/22 06:01 84 20 137/69 97 01/14/22 05:31 01/14/22 05:31 01/14/22 05:31 36.1 C L 85 18 158/96 H 98 O2 Del Method O2 Flow Rate 01/14/22 11:00 01/14/22 11:31 Nasal Cannula 2 01/14/22 11:31 Nasal Cannula 2 01/14/22 08:00 Nasal Cannula 4 01/14/22 07:00 Nasal Cannula 4 01/14/22 06:01 Nasal Cannula 3 01/14/22 05:31 Nasal Cannula 4 01/14/22 05:31 Nasal Cannula 4 01/14/22 05:31 Nasal Cannula 4 Laboratory Results Short CBC 01/14/22 Range/Units 05:20 WBC 9.87 (4.8-10.8) K/ul Hgb 11.8 L (14.0-18.0) g/dl Hct 36.1 L (40.1-51.0) % Plt Count 186 (130-400) K/uL BMP 01/14/22 05:20 Sodium 138 Potassium 4.0 Chloride 101 Carbon Dioxide 30 BUN 24 H Creatinine 1.19 Glucose 128 H Calcium 9.0 Liver Function 01/14/22 Range/Units 05:20 Total Bilirubin 0.5 (0.2-1.0) mg/dl AST 16 (13-39) U/L ALT 8 (7-52) U/L Alkaline Phosphatase 64 (34-104) U/L Albumin 3.7 (3.4-5.0) gm/dl
[2022-01-14] MEDS: FUROSEMIDE 40 MG/4 ML VIAL IV SCH (17:02)
[2022-01-14] MEDS: MIRTAZAPINE TAB 15 MG TAB PO SCH (20:11)
[2022-01-14] MEDS: FINASTERIDE 5 MG TAB PO SCH (20:13)
[2022-01-14] MEDS: MELATONIN 3 MG TAB PO PRN (22:56)
[2022-01-15] MEDS: HEPARIN SOD 5,000 UNIT/0.5 ML VIAL SQ SCH ×3 (06:13→21:49)
[2022-01-15] MEDS: ISOSORBIDE DINITRATE 5 MG TAB PO SCH ×2 (06:32→13:33)
[2022-01-15 08:33] LABS: BUN Creatinine Ratio 18.5 (10-20); Calcium 9.3 mg/dl (8.5-10.1); Creatinine Clr Calc Pharmacy 26.4 ml/min; Est GFR (African American) 43.9 ml/min; Est GFR (Non-African American) 37.9 ml/min; Potassium 4.1 mmol/L (3.5-5.1)
[2022-01-15 08:36] LABS: Hematocrit (blood only) 33.7 % (40.1-51.0); Hemoglobin 11.4 g/dl (14.0-18.0); Mean Corpuscular Hgb Conc 33.8 g/dL (32.0-36.0); Mean Corpuscular Volume 100.6 fL (80.0-100.0); Mean Platelet Volume 11.5 fL (9.4-12.4); Platelet Count 211 K/uL (130-400); RDW Coefficient of Variation 12.9 % (11.5-14.5); RDW Standard Deviation 47.8 fL (36.4-46.3); Red Blood Count 3.35 M/uL (4.63-6.08); White Blood Count 15.21 K/ul (4.8-10.8)
[2022-01-15 08:37] LABS: Basophils # (auto) 0.01 K/uL (0-0.2); Basophils % (auto) 0.1 %; Immature Granulocytes # (auto) 0.06 K/uL (0.00-0.02); Immature Granulocytes % (auto) 0.4 %; Lymphocytes # (auto) 0.75 K/uL (1.2-3.4); Lymphocytes % (auto) 4.9 %; Monocytes % (auto) 3.9 %; Neutrophils # (auto) 13.79 K/uL (1.4-6.5); Neutrophils % (auto) 90.7 %
[2022-01-15] MEDS: TAMSULOSIN HCL 0.4 MG CAP PO SCH (09:31)
[2022-01-15] MEDS: ASPIRIN 81 MG ECTAB PO SCH (09:32)
[2022-01-15] MEDS: UMECLIDINIUM/VILANTEROL 62.5/25MCG 7 PUFFS/INHALER INH SCH (09:32)
[2022-01-15] MEDS: FUROSEMIDE 40 MG/4 ML VIAL IV SCH (09:32)
[2022-01-15] MEDS: AMIODARONE 200 MG TAB PO SCH (09:32)
[2022-01-15] MEDS: POTASSIUM CHLORIDE CRTAB 20 MEQ TABCR PO SCH (09:32)
--- NOTE | 2022-01-15 11:49 | Cardiology Progress Note ---
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 Aldactone recently discontinued in the outpatient setting due to renal insufficiency and hyperkalemia with a elevated serum potassium level 5.6. Treatment options are limited due to patient's chronic renal insufficiency and hyponatremia. Recommend IV furosemide 40 mg twice daily. Follow fluid balance, daily weight, GFR, and electrolytes. 01/15/2022 Patient is responding to IV diuretics though with persistent cough. Negative fluid balance present would continue IV diuresis, all the medications as ordered Suspect component of underlying interstitial lung disease as well as congestive heart failure. Question aspiration component Admission and Anticipated Discharge Date Admission Date: January 14, 2022 Subjective Patient was seen and examined, chart, medications, telemetry reviewed. Patient notes feeling weak and fatigued has a persistent cough worse while eating. No fevers or chills no sputum production. No worsening edema greater than 1 L diuresis overnight Review of Systems Review of Systems: All systems reviewed & are unremarkable except as noted in Subjective Physical Exam Constitutional: + cachectic ENMT: external ear and nose normal, oropharynx normal Neck: trachea midline, no thyromegaly Respiratory: no respiratory distress and no labored breathing Auscultation: + diminished lung sounds (Bilateral) and + rales (Bases bilateral); no wheezes Cardiovascular: Rate/Rhythm: regular rate and regular rhythm Heart Sounds: normal S1 and normal S2; no murmur Vessels: + JVD Extremities: no edema Gastrointestinal (Abdomen): Inspection/Auscultation: abdomen normal to inspection and normal bowel sounds; abdomen not distended Percussion/Palpat ion: abdomen soft; abdomen nontender, no guarding and abdomen not rigid Neurologic: CN's II-XI intact bilaterally and moves all extremities; no focal motor deficits Psychiatric: A+Ox3, euthymic affect Results & Data ([facility]) Vital Signs (Past 12 Hours) Vital Signs Temp Pulse Resp BP Pulse Ox O2 Del Method O2 Flow Rate 01/15/22 08:00 Nasal Cannula 2 01/15/22 06:29 36.5 C 60 18 110/68 94 Nasal Cannula 01/15/22 02:46 36.6 C 54 L 18 108/60 98 Nasal Cannula Laboratory Results Laboratory Results - last 24 hr 01/15/22 01/15/22 01/15/22 07:48 07:48 07:48 WBC 15.21 H RBC 3.35 L Hgb 11.4 L Hct 33.7 L MCV 100.6 H MCH 34.0 MCHC 33.8 RDW Std Deviation 47.8 H RDW Coeff of Ty 12.9 Plt Count 211 MPV 11.5 Immature Gran % (Auto) 0.4 Neut % (Auto) 90.7 Lymph % (Auto) 4.9 [place] % (Auto) 3.9 Eos % (Auto) 0.0 Baso % (Auto) 0.1 Neut # (Auto) 13.79 H Lymph # (Auto) 0.75 L [place] # (Auto) 0.60 Eos # (Auto) 0.00 Baso # (Auto) 0.01 Immature Gran # (Auto) 0.06 H Sodium 138 Potassium 4.1 Chloride 98 Carbon Dioxide 32 Anion Gap 8 BUN 30 H Creatinine 1.62 H D Est Cr Clr Drug Dosing 26.4 Est GFR ( Amer) 43.9 Est GFR (Non-Af Amer) 37.9 BUN/Creatinine Ratio 18.5 Glucose 126 H Calcium 9.3 Magnesium 2.0 Procalcitonin < 0.05 Medications Administered Current Medications Acetaminophen (Acetaminophen 325 Mg Tab) 650 mg PO Q4H PRN PRN Reason: fever or pain Stop: 02/13/22 10:12 Amiodarone HCl (Amiodarone 200 Mg Tab) 100 mg PO QAM [facility] Stop: 02/13/22 10:29 Last Admin: 01/15/22 09:32 Dose: 100 mg Aspirin (Aspirin 81 Mg Ectab) 81 mg PO QAM [facility] Stop: 02/13/22 10:29 Last Admin: 01/15/22 09:32 Dose: 81 mg Finasteride (Finasteride 5 Mg Tab) 5 mg PO HS [facility] Stop: 02/13/22 20:59 Last Admin: 01/14/22 20:13 Dose: 5 mg Heparin Sodium (Porcine) (Heparin Sod 5,000 Unit/0.5 Ml Vial) 5,000 units SQ Q8 [facility] Stop: 02/13/22 13:59 Last Admin: 01/15/22 06:13 Dose: 5,000 units Promethazine HCl 6.25 mg/ (Sodium Chloride) 50.25 mls @ 201 mls/hr IV Q6H PRN PRN Reason: Nausea And Vomiting Stop: 02/13/22 10:12 Ipratropium [place] (Ipratropium [place] Neb Soln 0.02% 2.5 Ml Vial) 0.5 mg INH Q4R PRN PRN Reason: SOB/Wheezing Stop: 02/13/22 10:12 Isosorbide Dinitrate (Isosorbide Dinitrate 5 Mg Tab) 5 mg PO BID@0700,1200 [facility] Stop: 02/13/22 11:59 Last Admin: 01/15/22 06:32 Dose: 5 mg Levalbuterol HCl (Levalbuterol 1.25mg/0.5ml Neb) 1.25 mg INH Q4R PRN PRN Reason: SOB/Wheezing Stop: 02/13/22 10:12 Melatonin (Melatonin 3 Mg Tab) 3 mg PO HS PRN PRN Reason: Sleep Stop: 02/13/22 21:57 Last Admin: 01/14/22 22:56 Dose: 3 mg Mirtazapine (Mirtazapine Tab 15 Mg Tab) 22.5 mg PO HS [facility] Stop: 02/13/22 20:59 Last Admin: 01/14/22 20:11 Dose: 22.5 mg Nitroglycerin (Nitroglycerin Sl 0.4 Mg/Tab Tab) 0.4 mg SL UD PRN PRN Reason: Chest Pain Stop: 02/13/22 10:12 Potassium Chloride (Potassium Chloride Crtab 20 Meq Tabcr) 20 meq PO BID [facility] Stop: 02/13/22 10:44 Last Admin: 01/15/22 09:32 Dose: 20 meq Tamsulosin HCl (Tamsulosin Hcl 0.4 Mg Cap) 0.4 mg PO DAILY [facility] Stop: 02/13/22 10:29 Last Admin: 01/15/22 09:31 Dose: 0.4 mg Umeclidinium/Vilanterol (Umeclidinium/Vilanterol 62.5/25mcg 7 Puffs/Inhaler) 1 puffs INH DAILY [facility] Stop: 02/13/22 10:29 Last Admin: 01/15/22 09:32 Dose: 1 puffs
--- NOTE | 2022-01-15 19:29 | Hospitalist Progress Note ---
Date of Service January 15, 2022 Assessment & Plan (1) Acute hypoxemic respiratory failure: Plan: Acute on chronic systolic and diastolic CHF Pleural effusion Chronic left bundle branch block Chronic respiratory failure with Hypoxia on home O2 H/O COPD S/P ICD S/P removal secondary to infection in the past Mild valvular heart disease, pulmonary hypertension --CXR:Interstitial pulmonary edema with moderate bilateral pleural effusions and associated bibasilar opacities. Findings have progressed when compared to exam of December 16, 2021. -ECHO from 11/08/21: Mild concentric LVH. Severe global hypokinesis of left ventricle. Septal motion consistent with conduction abnormality. EF 15 to 20%. Left atrium moderately dilated. Left ventricle mildly dilated. Moderate to severe mitral regurgitation. Mild tricuspid regurgitation. Monitor I's and O's, electrolytes Appreciate cardiology input Continue supplemental oxygen as needed IV Lasix held today due to rise in Cr Resume diuretics as able Repeat CXR in AM Chronic Troponin elevation Likely demand Ischemia due to above H/O CAD Continue aspirin Denies any chest pain Hypertension Home medications Monitor H/O NSVT On amiodarone. BPH On Flomax and finasteride. Prediabetes HbA1C: 5.7 CJ on CKD III Monitor renal function Cr 1.6 today Past tobacco/alcohol abuse As per records DVT Px: Heparin SQ Code Status Full code Admission and Anticipated Discharge Date Admission Date: January 14, 2022 Subjective Patient is seen and examined at bedside Slept better overnight Feels tired No other complaints Denies any chest pain, dizziness, nausea, abdominal pain Review of Systems Review of Systems: All systems reviewed & are unremarkable except as noted in Subjective Physical Exam 2 Physical Exam: Physical Exam: Vitals signs as noted above General Appearance:Thin, frail, elderly, Chronic ill appearing, no apparent distress, +Cachectic Head: normocephalic, Atraumatic Eyes: normal inspection, EOMI Neck: supple, Trachea midline Respiratory/Chest: Decreased breath sounds, basal rales, No accessory muscle use Cardiovascular: S1, S2, + murmur Abdomen/GI:Soft, Non tender, Bowel sounds present Extremities/Musculoskeletal:normal inspection, no edema Neurologic/Psych:AAOX3, grossly no focal neurological deficits Skin: normal color, warm Results & Data Results & Data ([facility]) Vital Signs (Past 12 Hours) Vital Signs Temp Pulse Resp BP Pulse Ox O2 Del Method O2 Flow Rate 01/15/22 19:09 36.7 C 67 18 108/48 L 98 Nasal Cannula 01/15/22 15:56 36.6 C 66 20 103/46 L 98 Nasal Cannula 2 01/15/22 13:40 99 Nasal Cannula 2 01/15/22 11:58 36.4 C L 74 18 123/64 97 Nasal Cannula 2.0 01/15/22 08:00 Nasal Cannula 2 Laboratory Results Short CBC 01/15/22 Range/Units 07:48 WBC 15.21 H (4.8-10.8) K/ul Hgb 11.4 L (14.0-18.0) g/dl Hct 33.7 L (40.1-51.0) % Plt Count 211 (130-400) K/uL BMP 01/15/22 07:48 Sodium 138 Potassium 4.1 Chloride 98 Carbon Dioxide 32 BUN 30 H Creatinine 1.62 H D Glucose 126 H Calcium 9.3
[2022-01-15] MEDS: FINASTERIDE 5 MG TAB PO SCH (20:36)
[2022-01-15] MEDS: MIRTAZAPINE TAB 15 MG TAB PO SCH (20:37)
[2022-01-15] MEDS: MELATONIN 3 MG TAB PO PRN ×2 (21:49→21:52)
[2022-01-16] MEDS: ISOSORBIDE DINITRATE 5 MG TAB PO SCH ×2 (06:03→12:41)
[2022-01-16] MEDS: HEPARIN SOD 5,000 UNIT/0.5 ML VIAL SQ SCH ×3 (06:03→21:42)
[2022-01-16 07:17] LABS: BUN Creatinine Ratio 25.8 (10-20); Calcium 8.8 mg/dl (8.5-10.1); Creatinine Clr Calc Pharmacy 28.2 ml/min; Est GFR (African American) 47.8 ml/min; Est GFR (Non-African American) 41.2 ml/min; Potassium 3.7 mmol/L (3.5-5.1)
--- NOTE | 2022-01-16 08:39 | XRay Report ---
XR chest 1V portable HISTORY: 87 years-old Male CHF acute shortness of breath with congestive heart failure COMPARISON: Chest radiograph 01/14/2022 TECHNIQUE: Portable AP view of the chest FINDINGS: Cardiac silhouette is enlarged. No pneumothorax. Layering pleural effusions with bibasilar consolidat ion. Mild improvement of the pulmonary edema. Degenerative changes of the shoulders and spine. IMPRESSION: 1. Cardiomegaly with mildly improved pulmonary edema. 2. Persistent pleural effusions with mildly improved bibasilar consolidation. ACT 112: Negative or not required by law. The above report was generated using voice recognition software. It may contain grammatical, syntax o r spelling errors. Electronically signed by: Glen Montenegro M.D. 01/16/2022 8:38 AM
[2022-01-16] MEDS: UMECLIDINIUM/VILANTEROL 62.5/25MCG 7 PUFFS/INHALER INH SCH (09:33)
[2022-01-16] MEDS: POTASSIUM CHLORIDE CRTAB 20 MEQ TABCR PO SCH (09:34)
[2022-01-16] MEDS: AMIODARONE 200 MG TAB PO SCH (09:35)
[2022-01-16] MEDS: ASPIRIN 81 MG ECTAB PO SCH (09:36)
[2022-01-16] MEDS: TAMSULOSIN HCL 0.4 MG CAP PO SCH (09:36)
[2022-01-16] MEDS ORDERED: DOCUSATE SODIUM 100 MG CAP PO PRN (09:52)
[2022-01-16] MEDS ORDERED: POLYETHYLENE (MIRALAX) 17 GM PACK PO PRN (09:52)
[2022-01-16] MEDS: FUROSEMIDE 40 MG/4 ML VIAL IV SCH (12:41)
--- NOTE | 2022-01-16 13:17 | Cardiology Progress Note ---
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 Aldactone recently discontinued in the outpatient setting due to renal insufficiency and hyperkalemia with a elevated serum potassium level 5.6. Treatment options are limited due to patient's chronic renal insufficiency and hyponatremia. Recommend IV furosemide 40 mg twice daily. Follow fluid balance, daily weight, GFR, and electrolytes. 01/15/2022 Patient is responding to IV diuretics though with persistent cough. Negative fluid balance present would continue IV diuresis, all the medications as ordered Suspect component of underlying interstitial lung disease as well as congestive heart failure. Question aspiration component 01/16/2022 Slightly improved from day prior. Would continue IV diuretics Admission and Anticipated Discharge Date Admission Date: January 14, 2022 Subjective Patient was seen and examined, chart, medications, telemetry reviewed. Slightly brighter here today less dyspneic. Still with cough with loose rhonchi. Review of Systems Review of Systems: All systems reviewed & are unremarkable except as noted in Subjective Physical Exam Constitutional: + cachectic ENMT: external ear and nose normal, oropharynx normal Neck: trachea midline, no thyromegaly Respiratory: no respiratory distress and no labored breathing Auscultation: + diminished lung sounds (Bilateral); no wheezes Cardiovascular: Rate/Rhythm: regular rate and regular rhythm Heart Sounds: normal S1 and normal S2; no murmur Vessels: + JVD Extremities: no edema Gastrointestinal (Abdomen): Inspection/Auscultation: abdomen normal to inspection and normal bowel sounds; abdomen not distended Percussion/Palpation: abdomen soft; abdomen nontender, no guarding and abdomen not rigid Neurologic: CN's II-XI intact bilaterally and moves all extremities; no focal motor deficits Psychiatric: A+Ox3, euthymic affect Results & Data ([facility]) Vital Signs (Past 12 Hours) Vital Signs Temp Pulse Resp BP Pulse Ox Pulse Ox O2 Del Method 01/16/22 08:00 97 01/16/22 08:00 Nasal Cannula 01/16/22 06:25 36.7 C 67 18 124/54 L 97 Nasal Cannula 01/16/22 04:01 36.8 C 67 18 126/60 98 Nasal Cannula O2 Del Method O2 Flow Rate O2 Flow Rate 01/16/22 08:00 Nasal Cannula 2 01/16/22 08:00 2 01/16/22 06:25 01/16/22 04:01 Diagnostic Findings Chest x-ray reveals slightly improved pulmonary edema though with persistent bilateral pleural effusions
--- NOTE | 2022-01-16 15:36 | Hospitalist Progress Note ---
Date of Service January 16, 2022 Assessment & Plan (1) Acute hypoxemic respiratory failure: Plan: Acute on chronic systolic and diastolic CHF Pleural effusion Chronic left bundle branch block Chronic respiratory failure with Hypoxia on home O2 H/O COPD S/P ICD S/P removal secondary to infection in the past Mild valvular heart disease, pulmonary hypertension --CXR:Interstitial pulmonary edema with moderate bilateral pleural effusions and associated bibasilar opacities. Findings have progressed when compared to exam of December 16, 2021. -ECHO from 11/08/21: Mild concentric LVH. Severe global hypokinesis of left ventricle. Septal motion consistent with conduction abnormality. EF 15 to 20%. Left atrium moderately dilated. Left ventricle mildly dilated. Moderate to severe mitral regurgitation. Mild tricuspid regurgitation. Monitor I's and O's, electrolytes Appreciate cardiology input Continue supplemental oxygen as needed Continue IV Lasix CXR today mildly improved pulmonary edema Chronic Troponin elevation Likely demand Ischemia due to above H/O CAD Continue aspirin Denies any chest pain Constipation Continue bowel regimen Hypertension Home medications Monitor H/O NSVT On amiodarone. BPH On Flomax and finasteride. Prediabetes HbA1C: 5.7 CJ on CKD III Monitor renal function Cr 1.6 today Past tobacco/alcohol abuse As per records DVT Px: Heparin SQ Code Status Full code Admission and Anticipated Discharge Date Admission Date: January 14, 2022 Subjective Patient is seen and examined at bedside Reports constipation Had speech therapy evaluation earlier today Denies any chest pain, dizziness, nausea, abdominal pain No new complaints Chest x-ray showed improved pulmonary edema Review of Systems Review of Systems: All systems reviewed & are unremarkable except as noted in Subjective Physical Exam Physical Exam: Physical Exam: Vitals signs as noted above General Appearance:Thin, frail, elderly, Chronic ill appearing, no apparent distress, +Cachectic Head: normocephalic, Atraumatic Eyes: normal inspection, EOMI Neck: supple, Trachea midline Respiratory/Chest: Decreased breath sounds, No accessory muscle use Cardiovascular: S1, S2, + murmur Abdomen/GI:Soft, Non tender, Bowel sounds present Extremities/Musculoskeletal:normal inspection, no edema Neurologic/Psych:AAOX3, grossly no focal neurological deficits Skin: normal color, warm Results & Data Results & Data ([facility]) Vital Signs (Past 12 Hours) Vital Signs Temp Pulse Resp BP Pulse Ox Pulse Ox O2 Del Method 09/25/22 14:44 66 105/54 L 98 Nasal Cannula 01/16/22 08:00 97 01/16/22 08:00 Nasal Cannula 01/16/22 06:25 36.7 C 67 18 124/54 L 97 Nasal Cannula 01/16/22 04:01 36.8 C 67 18 126/60 98 Nasal Cannula O2 Del Method O2 Flow Rate O2 Flow Rate 01/16/22 14:44 2 01/16/22 08:00 Nasal Cannula 2 01/16/22 08:00 2 01/16/22 06:25 01/16/22 04:01 Laboratory Results [facility] 01/16/22 06:21 Sodium 138 Potassium 3.7 Chloride 100 Carbon Dioxide 35 H BUN 39 H Creatinine 1.51 H Glucose 92 Calcium 8.8
[2022-01-16] MEDS: MIRTAZAPINE TAB 15 MG TAB PO SCH (19:52)
[2022-01-16] MEDS: FINASTERIDE 5 MG TAB PO SCH (19:52)
[2022-01-17] MEDS: HEPARIN SOD 5,000 UNIT/0.5 ML VIAL SQ SCH ×3 (07:09→20:07)
[2022-01-17 07:28] LABS: Hematocrit (blood only) 35.4 % (40.1-51.0); Hemoglobin 11.9 g/dl (14.0-18.0); Mean Corpuscular Hemoglobin 34.1 pg (25.0-34.0); Mean Corpuscular Hgb Conc 33.6 g/dL (32.0-36.0); Mean Corpuscular Volume 101.4 fL (80.0-100.0); Mean Platelet Volume 11.1 fL (9.4-12.4); Platelet Count 179 K/uL (130-400); Red Blood Count 3.49 M/uL (4.63-6.08); White Blood Count 7.93 K/ul (4.8-10.8)
[2022-01-17 07:43] LABS: Partial Thromboplastin Time 26.8 Seconds (21.0-31.0)
[2022-01-17 08:06] LABS: BUN Creatinine Ratio 23.8 (10-20); Creatinine Clr Calc Pharmacy 26.4 ml/min; Est GFR (African American) 49.4 ml/min; Est GFR (Non-African American) 42.6 ml/min
[2022-01-17] MEDS: ASPIRIN 81 MG ECTAB PO SCH (09:11)
[2022-01-17] MEDS: ISOSORBIDE DINITRATE 5 MG TAB PO SCH ×2 (09:11→12:09)
[2022-01-17] MEDS: POTASSIUM CHLORIDE CRTAB 20 MEQ TABCR PO SCH (09:11)
[2022-01-17] MEDS: FUROSEMIDE 40 MG/4 ML VIAL IV SCH (09:12)
[2022-01-17] MEDS: TAMSULOSIN HCL 0.4 MG CAP PO SCH (09:12)
[2022-01-17] MEDS: AMIODARONE 200 MG TAB PO SCH (09:12)
[2022-01-17] MEDS: UMECLIDINIUM/VILANTEROL 62.5/25MCG 7 PUFFS/INHALER INH SCH (09:12)
--- NOTE | 2022-01-17 11:58 | Cardiology Progress Note ---
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 Aldactone recently discontinued in the outpatient setting due to renal insufficiency and hyperkalemia with a elevated serum potassium level 5.6. Treatment options are limited due to patient's chronic renal insufficiency and hyponatremia. Recommend IV furosemide 40 mg twice daily. Follow fluid balance, daily weight, GFR, and electrolytes. 01/15/2022 Patient is responding to IV diuretics though with persistent cough. Negative fluid balance present would continue IV diuresis, all the medications as ordered Suspect component of underlying interstitial lung disease as well as congestive heart failure. Question aspiration component 01/16/2022 Slightly improved from day prior. Would continue IV diuretics 01/17/2022: Patient once again demonstrating slow improvement with IV diuretics. Would continue IV furosemide and least an additional 24 hours. Suspect pleural effusions will be slow to respond currently hemodynamically stable and renal functioning tolerating Admission and Anticipated Discharge Date Admission Date: January 14, 2022 Subjective Patient seen and examined, chart, medications, telemetry reviewed. No arrhyth mias on telemetry. Patient eating without difficulty. Notes breathlessness less pronounced. Better oxygenation on 2 L nasal cannula. Brisk diuresis yesterday Review of Systems Review of Systems: All systems reviewed & are unremarkable except as noted in Subjective Physical Exam Constitutional: + cachectic ENMT: external ear and nose normal, oropharynx normal Neck: trachea midline, no thyromegaly Respiratory: no respiratory distress and no labored breathing Auscultation: + diminished lung sounds (BilateralBut improved from prior day); no wheezes Cardiovascular: Rate/Rhythm: regular rate and regular rhythm Heart Sounds: normal S1 and normal S2; no murmur Vessels: + JVD Extremities: no edema Gastrointestinal (Abdomen): Inspection/Auscultation: abdomen normal to inspection and normal bowel sounds; abdomen not distended Percussion/Palpation: abdomen soft; abdomen nontender, no guarding and abdomen not rigid Neurologic: CN's II-XI intact bilaterally and moves all extremities; no focal motor deficits Psychiatric: A+Ox3, euthymic affect Results & Data ([facility]) Vital Signs (Past 12 Hours) Vital Signs Temp Pulse Pulse Resp BP Pulse Ox O2 Del Method 01/17/22 10:43 36.8 C 78 18 124/69 97 01/17/22 08:00 Nasal Cannula 01/17/22 06:26 61 01/17/22 03:12 36.4 C L 62 16 114/64 100 Nasal Cannula O2 Flow Rate 01/17/22 10:43 01/17/22 08:00 2 01/17/22 06:26 01/17/22 03:12 2 Laboratory Results Laboratory Results - last 24 hr 01/17/22 01/17/22 01/17/22 07:16 07:16 07:16 WBC 7.93 RBC 3.49 L Hgb 11.9 L Hct 35.4 L MCV 101.4 H MCH 34.1 H MCHC 33.6 RDW Std Deviation 49.0 H RDW Coeff of Ty 13.0 Plt Count 179 MPV 11.1 APTT 26.8 PTT Ratio 1.0 Sodium 139 Potassium 4.0 Chloride 98 Carbon Dioxide 37 H Anion Gap 4 BUN 35 H Creatinine 1.47 H Est Cr Clr Drug Dosing 26.4 Est GFR ( Amer) 49.4 Est GFR (Non-Af Amer) 42.6 BUN/Creatinine Ratio 23.8 H Glucose 112 H Calcium 9.0
--- NOTE | 2022-01-17 15:30 | Hospitalist Progress Note ---
Date of Service January 17, 2022 Assessment & Plan (1) Acute hypoxemic respiratory failure: Plan: Acute on chronic systolic and diastolic CHF Pleural effusion Chronic left bundle branch block Chronic respiratory failure with Hypoxia on home O2 H/O COPD S/P ICD S/P removal secondary to infection in the past Mild valvular heart disease, pulmonary hypertension --CXR:Interstitial pulmonary edema with moderate bilateral pleural effusions and associated bibasilar opacities. Findings have progressed when compared to exam of December 16, 2021. -ECHO from 11/08/21: Mild concentric LVH. Severe global hypokinesis of left ventricle. Septal motion consistent with conduction abnormality. EF 15 to 20%. Left atrium moderately dilated. Left ventricle mildly dilated. Moderate to severe mitral regurgitation. Mild tricuspid regurgitation. --Repeat CXR showed mildly improved pulmonary edema Monitor I's and O's, electrolytes Appreciate cardiology input Continue supplemental oxygen as needed Continue IV Lasix today Likely plan to be transition to p.o. diuretics in 24 to 48 hours. Chronic Troponin elevation Likely demand Ischemia due to above H/O CAD Continue aspirin Denies any chest pain Constipation Continue bowel regimen Hypertension Home medications Monitor H/O NSVT On amiodarone. BPH On Flomax and finasteride. Prediabetes HbA1C: 5.7 CJ on CKD III Monitor renal function Cr 1.47 today Past tobacco/alcohol abuse As per records DVT Px: Heparin SQ Code Status Full code Admission and Anticipated Discharge Date Admission Date: January 14, 2022 Subjective Patient is seen and examined at bedside Constipation resolved States feeling better today Discussed with cardiology today Dyspnea much improved States having intermittent cough Denies any chest pain, dizziness, nausea, abdominal pain Review of Systems Review of Systems: All systems reviewed & are unremarkable except as noted in Subjective Physical Exam Physical Exam: Physical Exam: Vitals signs as noted above General Appearance:Thin, frail, elderly, Chronic ill appearing, no apparent distress, +Cachectic Head: normocephalic, Atraumatic Eyes: normal inspection, EOMI Neck: supple, Trachea midline Respiratory/Chest: Decreased breath sounds, No accessory muscle use Cardiovascular: S1, S2, + murmur Abdomen/GI:Soft, Non tender, Bowel sounds present Extremities/Musculoskeletal:normal inspection, no edema Neurologic/Psych:AAOX3, grossly no focal neurological deficits Skin: normal color, warm Results & Data Results & Data ([facility]) Vital Signs (Past 12 Hours) Vital Signs Temp Pulse Pulse Resp BP Pulse Ox O2 Del Method 01/17/22 10:43 36.8 C 78 18 124/69 97 01/17/22 08:00 Nasal Cannula 01/17/22 06:26 61 O2 Flow Rate 01/17/22 10:43 01/17/22 08:00 2 01/17/22 06:26 Laboratory Results Short CBC 01/17/22 Range/Units 07:16 WBC 7.93 (4.8-10.8) K/ul Hgb 11.9 L (14.0-18.0) g/dl Hct 35.4 L (40.1-51.0) % Plt Count 179 (130-400) K/uL BMP 01/17/22 07:16 Sodium 139 Potassium 4.0 Chloride 98 Carbon Dioxide 37 H BUN 35 H Creatinine 1.47 H Glucose 112 H Calcium 9.0
[2022-01-17] MEDS: MIRTAZAPINE TAB 15 MG TAB PO SCH (20:05)
[2022-01-17] MEDS: FINASTERIDE 5 MG TAB PO SCH (20:05)
[2022-01-18] MEDS: HEPARIN SOD 5,000 UNIT/0.5 ML VIAL SQ SCH ×3 (06:17→20:37)
[2022-01-18 07:04] LABS: Partial Thromboplastin Time 27.1 Seconds (21.0-31.0)
[2022-01-18 07:25] LABS: BUN Creatinine Ratio 26.7 (10-20); Calcium 8.8 mg/dl (8.5-10.1); Creatinine Clr Calc Pharmacy 25.7 ml/min; Est GFR (African American) 48.2 ml/min; Est GFR (Non-African American) 41.6 ml/min; Potassium 3.9 mmol/L (3.5-5.1)
[2022-01-18] MEDS: AMIODARONE 200 MG TAB PO SCH (08:34)
[2022-01-18] MEDS: ISOSORBIDE DINITRATE 5 MG TAB PO SCH ×2 (08:34→12:54)
[2022-01-18] MEDS: POTASSIUM CHLORIDE CRTAB 20 MEQ TABCR PO SCH (08:35)
[2022-01-18] MEDS: FUROSEMIDE 40 MG/4 ML VIAL IV SCH (08:35)
[2022-01-18] MEDS: ASPIRIN 81 MG ECTAB PO SCH (08:36)
[2022-01-18] MEDS: UMECLIDINIUM/VILANTEROL 62.5/25MCG 7 PUFFS/INHALER INH SCH (08:36)
[2022-01-18] MEDS: TAMSULOSIN HCL 0.4 MG CAP PO SCH (08:36)
--- NOTE | 2022-01-18 11:05 | Cardiology Progress Note ---
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 Aldactone recently discontinued in the outpatient setting due to renal insufficiency and hyperkalemia with a elevated serum potassium level 5.6. Treatment options are limited due to patient's chronic renal insufficiency and hyponatremia. Recommend IV furosemide 40 mg twice daily. Follow fluid balance, daily weight, GFR, and electrolytes. 01/15/2022 Patient is responding to IV diuretics though with persistent cough. Negative fluid balance present would continue IV diuresis, all the medications as ordered Suspect component of underlying interstitial lung disease as well as congestive heart failure. Question aspiration component 01/16/2022 Slightly improved from day prior. Would continue IV diuretics 01/17/2022: Patient once again demonstrating slow improvement with IV diuretics. Would continue IV furosemide and least an additional 24 hours. Suspect pleural effusions will be slow to respond currently hemodynamically stable and renal functioning tolerating 01/18/2022: Patient appears improved from heart failure status with better aeration of both lung hearn, good oxygenation. We will discontinue IV furosemide. Begin furosemide 40 mg p.o. twice daily. Previously HARINI/ARB and spironolactone resulted in hyperkalemia and renal insufficiency. Patient currently on low-dose nitrates we will add low-dose hydralazine to combination for afterload reduction all other medical therapies to remain same Admission and Anticipated Discharge Date Admission Date: January 14, 2022 Subjective Patient seen and examined, chart, medications, telemetry reviewed. Patient has manifested good diuresis with maintained renal function and blood pressure. Respiratory status improved with better aeration both lungs No chest pains or disc Physical Exam Constitutional: + cachectic ENMT: external ear and nose normal, oropharynx normal Neck: trachea midline, no thyromegaly Respiratory: no respiratory distress and no labored breathing Auscultation: + diminished lung sounds (BilateralBut improved from prior day) and + rales (Bases bilateral); no wheezes Cardiovascular: Rate/Rhythm: regular rate and regular rhythm Heart Sounds: normal S1 and normal S2; no murmur Vessels: + JVD Extremities: no edema Gastrointestinal (Abdomen): Inspection/Auscultation: abdomen normal to inspection and normal bowel sounds; abdomen not distended Percussion/Palpation: abdomen soft; abdomen nontender, no guarding and abdomen not rigid Neurologic: CN's II-XI intact bilaterally and moves all extremities; no focal motor deficits Psychiatric: A+Ox3, euthymic affect Results & Data ([facility]) Vital Signs (Past 12 Hours) Vital Signs Temp Pulse Pulse Resp BP Pulse Ox Pulse Ox 01/18/22 08:00 61 01/18/22 08:00 01/18/22 07:07 36.3 C L 58 L 16 134/68 100 01/18/22 03:15 36.4 C L 58 L 18 104/45 L 99 01/18/22 00:34 55 L 01/18/22 00:00 100 O2 Del Method O2 Del Method O2 Flow Rate 01/18/22 08:00 01/18/22 08:00 Nasal Cannula 01/18/22 07:07 Nasal Cannula 2 01/18/22 03:15 Nasal Cannula 2 01/18/22 00:34 01/18/22 00:00 Laboratory Results Laboratory Results - last 24 hr 01/18/22 01/18/22 06:13 06:13 APTT 27.1 PTT Ratio 1.0 Sodium 139 Potassium 3.9 Chloride 98 Carbon Dioxide 36 H Anion Gap 5 BUN 40 H Creatinine 1.50 H Est Cr Clr Drug Dosing 25.7 Est GFR ( Amer) 48.2 Est GFR (Non-Af Amer) 41.6 BUN/Creatinine Ratio 26.7 H Glucose 83 Calcium 8.8
[2022-01-18] MEDS: FUROSEMIDE 40 MG TAB PO SCH (16:57)
[2022-01-18] MEDS: hydrALAZINE 10 MG TAB PO SCH (16:57)
--- NOTE | 2022-01-18 17:31 | Hospitalist Progress Note ---
Date of Service January 18, 2022 Assessment & Plan (1) Acute hypoxemic respiratory failure: Plan: Acute on chronic systolic and diastolic CHF Pleural effusion Chronic left bundle branch block Chronic respiratory failure with Hypoxia on home O2 H/O COPD S/P ICD S/P removal secondary to infection in the past Mild valvular heart disease, pulmonary hypertension --CXR:Interstitial pulmonary edema with moderate bilateral pleural effusions and associated bibasilar opacities. Findings have progressed when compared to exam of December 16, 2021. -ECHO from 11/08/21: Mild concentric LVH. Severe global hypokinesis of left ventricle. Septal motion consistent with conduction abnormality. EF 15 to 20%. Left atrium moderately dilated. Left ventricle mildly dilated. Moderate to severe mitral regurgitation. Mild tricuspid regurgitation. --Repeat CXR showed mildly improved pulmonary edema Monitor I's and O's, electrolytes Appreciate cardiology input Continue supplemental oxygen as needed Continue IV Lasix>> transitioned to p.o. Lasix 40 mg twice daily Also added on low-dose hydralazine Needs follow-up with cardiology upon discharge Chronic Troponin elevation Likely demand Ischemia due to above H/O CAD Continue aspirin Denies any chest pain Constipation Continue bowel regimen Hypertension Home medications Monitor H/O NSVT On amiodarone. BPH On Flomax and finasteride. Prediabetes HbA1C: 5.7 CJ on CKD III Monitor renal function Cr 1.50 today Past tobacco/alcohol abuse As per records DVT Px: Heparin SQ Code Status Full code Admission and Anticipated Discharge Date Admission Date: January 14, 2022 Subjective Patient is seen and examined at bedside Feels well No new complaints Denies any chest pain, dyspnea, dizziness, nausea, abdominal pain Review of Systems Review of Systems: All systems reviewed & are unremarkable except as noted in Subjective Physical Exam Physical Exam: Physical Exam: Vitals signs as noted above General Appearance:Thin, frail, elderly, Chronic ill appearing, no apparent distress, +Cachectic Head: normocephalic, Atraumatic Eyes: normal inspection, EOMI Neck: supple, Trachea midline Respiratory/Chest: Decreased breath sounds, CTA, No accessory muscle use Cardiovascular: S1, S2, + murmur Abdomen/GI:Soft, Non tender, Bowel sounds present Extremities/Musculoskeletal:normal inspection, no edema Neurologic/Psych:AAOX3, grossly no focal neurological deficits Skin: normal color, warm Results & Data Results & Data ([facility]) Vital Signs (Past 12 Hours) Vital Signs Temp Pulse Pulse Resp BP Pulse Ox O2 Del Method 01/18/22 16:00 01/18/22 15:14 61 01/18/22 15:05 36.4 C L 61 18 109/56 L 100 Nasal Cannula 01/18/22 11:26 Nasal Cannula 01/18/22 11:23 36.5 C 54 L 16 103/52 L 100 Nasal Cannula 01/18/22 08:00 61 01/18/22 08:00 01/18/22 07:07 36.3 C L 58 L 16 134/68 100 Nasal Cannula O2 Del Method O2 Flow Rate 01/18/22 16:00 Nasal Cannula 01/18/22 15:14 01/18/22 15:05 2 01/18/22 11:26 2 01/18/22 11:23 2 01/18/22 08:00 01/18/22 08:00 Nasal Cannula 01/18/22 07:07 2 Laboratory Results BMP 01/18/22 06:13 Sodium 139 Potassium 3.9 Chloride 98 Carbon Dioxide 36 H BUN 40 H Creatinine 1.50 H Glucose 83 Calcium 8.8
[2022-01-18] MEDS: FINASTERIDE 5 MG TAB PO SCH (20:37)
[2022-01-18] MEDS: MIRTAZAPINE TAB 15 MG TAB PO SCH (20:37)
[2022-01-19 06:44] LABS: Partial Thromboplastin Time 27.4 Seconds (21.0-31.0)
[2022-01-19] MEDS: HEPARIN SOD 5,000 UNIT/0.5 ML VIAL SQ SCH (06:45)
[2022-01-19] MEDS: ISOSORBIDE DINITRATE 5 MG TAB PO SCH ×2 (06:46→11:46)
[2022-01-19 07:50] LABS: BUN Creatinine Ratio 32.4 (10-20); Est GFR (African American) 51.5 ml/min; Est GFR (Non-African American) 44.4 ml/min; Potassium 3.7 mmol/L (3.5-5.1)
[2022-01-19] MEDS: AMIODARONE 200 MG TAB PO SCH (08:20)
[2022-01-19] MEDS: POTASSIUM CHLORIDE CRTAB 20 MEQ TABCR PO SCH (08:21)
[2022-01-19] MEDS: TAMSULOSIN HCL 0.4 MG CAP PO SCH (08:21)
[2022-01-19] MEDS: FUROSEMIDE 40 MG TAB PO SCH (08:21)
[2022-01-19] MEDS: hydrALAZINE 10 MG TAB PO SCH (08:22)
[2022-01-19] MEDS: ASPIRIN 81 MG ECTAB PO SCH (08:22)
[2022-01-19] MEDS: UMECLIDINIUM/VILANTEROL 62.5/25MCG 7 PUFFS/INHALER INH SCH (08:25)
[2022-01-19 11:34] VITALS: BP 122/61; PULSE 61; TEMP 99.7; O2SAT 100
--- NOTE | 2022-01-19 12:28 | Cardiology Progress Note ---
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 Aldactone recently discontinued in the outpatient setting due to renal insufficiency and hyperkalemia with a elevated serum potassium level 5.6. Treatment options are limited due to patient's chronic renal insufficiency and hyponatremia. Recommend IV furosemide 40 mg twice daily. Follow fluid balance, daily weight, GFR, and electrolytes. 01/15/2022 Patient is responding to IV diuretics though with persistent cough. Negative fluid balance present would continue IV diuresis, all the medications as ordered Suspect component of underlying interstitial lung disease as well as congestive heart failure. Question aspiration component 01/16/2022 Slightly improved from day prior. Would continue IV diuretics 01/17/2022: Patient once again demonstrating slow improvement with IV diuretics. Would continue IV furosemide and least an additional 24 hours. Suspect pleural effusions will be slow to respond currently hemodynamically stable and renal functioning tolerating 01/18/2022: Patient appears improved from heart failure status with better aeration of both lung hearn, good oxygenation. We will discontinue IV furosemide. Begin furosemide 40 mg p.o. twice daily. Previously HARINI/ARB and spironolactone resulted in hyperkalemia and renal insufficiency. Patient currently on low-dose nitrates we will add low-dose hydralazine to combination for afterload reduction all other medical therapies to remain same 01/19/2022. Cardiovascular medical regimen optimized patient on low-dose hydralazine and nitrates for afterload reduction, chronic amiodarone 100 mg every morning, furosemide increased to 40 mg twice per day. Clinic improved but high risk for further recurrence of congestive heart failure. CHF instruction packet ordered discussed with patient daily weights sodium and fluid restriction Admission and Anticipated Discharge Date Admission Date: January 14, 2022 Subjective Patient seen and examined, chart, medications, telemetry reviewed Had continued diuresis yesterday with hemodynamic stability. No decline in renal function. Respiratory status slowly improving no productive cough Review of Systems Review of Systems: All systems reviewed & are unremarkable except as noted in Subjective Physical Exam Constitutional: + cachectic ENMT: external ear and nose normal, oropharynx normal Neck: trachea midline, no thyromegaly Respiratory: no respiratory distress and no labored breathing Auscultation: + diminished lung sounds (BilateralBut improved from prior day) and + rales (Bases bilateral); no wheezes Cardiovascular: Rate/Rhythm: regular rate and regular rhythm Heart Sounds: normal S1 and normal S2; no murmur Vessels: + JVD Extremities: no edema Gastrointestinal (Abdomen): Inspection/Auscultation: abdomen normal to inspection and normal bowel sounds; abdomen not distended Percussion/Palpation: abdomen soft; abdomen nontender, no guarding and abdomen not rigid Neurologic: CN's II-XI intact bilaterally and moves all extremities; no focal motor deficits Psychiatric: A+Ox3, euthymic affect Results & Data ([facility]) Vital Signs (Past 12 Hours) Vital Signs Temp Pulse Pulse Resp BP Pulse Ox O2 Del Method 01/19/22 11:33 37.6 C H 61 16 122/61 100 Nasal Cannula 01/19/22 09:25 Room Air 01/19/22 08:00 60 01/19/22 08:00 01/19/22 07:52 36.7 C 66 18 108/60 98 Nasal Cannula 01/19/22 06:42 56 L 104/55 L 01/19/22 03:06 36.5 C 60 18 104/51 L 95 Nasal Cannula 01/19/22 00:40 60 O2 Del Method O2 Flow Rate O2 Flow Rate 01/19/22 11:33 2 01/19/22 09:25 01/19/22 08:00 01/19/22 08:00 Nasal Cannula 2 01/19/22 07:52 2 01/19/22 06:42 01/19/22 03:06 01/19/22 00:40
--- NOTE | 2022-01-19 13:10 | Hospitalist Progress Note ---
Date of Service January 19, 2022 Assessment & Plan (1) Acute hypoxemic respiratory failure: Plan: Acute on chronic systolic and diastolic CHF Pleural effusion Chronic left bundle branch block Chronic respiratory failure with Hypoxia on home O2 H/O COPD S/P ICD S/P removal secondary to infection in the past Mild valvular heart disease, pulmonary hypertension --CXR:Interstitial pulmonary edema with moderate bilateral pleural effusions and associated bibasilar opacities. Findings have progressed when compared to exam of December 16, 2021. -ECHO from 11/08/21: Mild concentric LVH. Severe global hypokinesis of left ventricle. Septal motion consistent with conduction abnormality. EF 15 to 20%. Left atrium moderately dilated. Left ventricle mildly dilated. Moderate to severe mitral regurgitation. Mild tricuspid regurgitation. --Repeat CXR showed mildly improved pulmonary edema Monitor I's and O's, electrolytes Appreciate cardiology input Continue supplemental oxygen as needed Continue IV Lasix>> transitioned to p.o. Lasix 40 mg twice daily Also added on low-dose hydralazine 10 mg BID Advised to follow-up with PCP and cardiology upon discharge Chronic Troponin elevation Likely demand Ischemia due to above H/O CAD Continue aspirin Denies any chest pain Constipation Continue bowel regimen Hypertension Home medications Monitor H/O NSVT On amiodarone. BPH On Flomax and finasteride. Prediabetes HbA1C: 5.7 CJ on CKD III Monitor renal function Cr 1.4 today Past tobacco/alcohol abuse As per records DVT Px: Heparin SQ Code Status Full code Disposition Home with Home Health Admission and Anticipated Discharge Date Admission Date: January 14, 2022 Subjective Patient is seen and examined at bedside No new complaints today Discussed with patient's daughter at bedside Plan to be discharged home today Also discussed with health and safety director Denies any chest pain, dyspnea, dizziness, nausea, abdominal pain Review of Systems Review of Systems: All systems reviewed & are unremarkable except as noted in Subjective Physical Exam Physical Exam: Physical Exam: Vitals signs as noted above General Appearance:Thin, frail, elderly, Chronic ill appearing, no apparent distress, +Cachectic Head: normocephalic, Atraumatic Eyes: normal inspection, EOMI Neck: supple, Trachea midline Respiratory/Chest: Decreased breath sounds, CTA, No accessory muscle use Cardiovascular: S1, S2, + murmur Abdomen/GI:Soft, Non tender, Bowel sounds present Extremities/Musculoskeletal:normal inspection, no edema Neurologic/Psych:AAOX3, grossly no focal neurological deficits Skin: normal color, warm Results & Data Results & Data ([facility]) Vital Signs (Past 12 Hours) Vital Signs Temp Pulse Pulse Resp BP Pulse Ox O2 Del Method 01/19/22 11:33 37.6 C H 61 16 122/61 100 Nasal Cannula 01/19/22 09:25 Room Air 01/19/22 08:00 60 01/19/22 08:00 01/19/22 07:52 36.7 C 66 18 108/60 98 Nasal Cannula 01/19/22 06:42 56 L 104/55 L 01/19/22 03:06 36.5 C 60 18 104/51 L 95 Nasal Cannula O2 Del Method O2 Flow Rate O2 Flow Rate 01/19/22 11:33 2 01/19/22 09:25 01/19/22 08:00 01/19/22 08:00 Nasal Cannula 2 01/19/22 07:52 2 01/19/22 06:42 01/19/22 03:06 Laboratory Results [facility] 01/19/22 05:58 Sodium 139 Potassium 3.7 Chloride 98 Carbon Dioxide 35 H BUN 46 H Creatinine 1.42 H Glucose 88 Calcium 9.0
--- NOTE | 2022-01-19 13:16 | Discharge Summary ---
Date of Service January 19, 2022 Admission HPI Per Admitting Provider History obtained from patient and records. Medical history significant for chronic respiratory failure secondary to COPD on home O2, chronic systolic heart failure (15 to 20%, TTE 2021) status post ICD status post removal secondary to infection, CAD as per records, chronic LBBB, valvular heart disease (moderate to severe MR, mild TR), pulmonary hypertension, hypertension, hyperlipidemia, chronic anemia (baseline hemoglobin 11 ), past tobacco/alcohol abuse. Monthly admissions since October 2021 for decompensated heart failure. [place] [facility] [place]. Patient not felt to have end-stage CHF as per provider note. Patient spironolactone discontinued due to high outpatient serum potassium lab work. Last night, patient noted worsening shortness of breath especially on exertion. Usual cough symptoms. No chest pain. Unquantified weight gain which patient attributes to eating more than usual. At the ER, patient received Solu-Medrol, neb treatment and Lasix. Patient currently feeling much better. 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 Admission Exam Per Admitting Provider Physical Exam Physical Exam: GENERAL: Slightly uncomfortable, underweight, chronically ill, no respiratory d istress SKIN: Pallor, warm HEENT: Alopecia, pale palpebral conjunctivae, no ptosis, dry buccal mucosa, nasal cannula in place NECK : Supple, distended neck veins, no tenderness CHEST : Decreased breath sounds , no tenderness HEART : diminished S1-S2, systolic murmur ABDOMEN: Some distention, nontender EXTREMITIES : No LE swelling/tenderness, no other conspicuous deformities noted NEUROLOGIC : Coherent, no facial asymmetry, no other gross focality Principal Diagnosis Acute on chronic systolic and diastolic CHF Chronic respiratory failure with Hypoxia on home Oxygen Acute Kidney Injury Discharge Data Allergies Allergy/AdvReac Type Severity Reaction Status Date / Time No Known Allergies Allergy Unknown Verified 11/08/21 02:57 Consultations 01/14/22 05:26 ED Decision to Admit Stat 01/14/22 10:13 Consult Cardiology Routine Ordered Studies Laboratory Results WBC 7.93 K/ul (4.8-10.8) 01/17/22 07:16 RBC 3.49 M/uL (4.63-6.08) L 01/17/22 07:16 Hgb 11.9 g/dl (14.0-18.0) L 01/17/22 07:16 Hct 35.4 % (40.1-51.0) L 01/17/22 07:16 MCV 101.4 fL (80.0-100.0) H 01/17/22 07:16 MCH 34.1 pg (25.0-34.0) H 01/17/22 07:16 MCHC 33.6 g/dL (32.0-36.0) 01/17/22 07:16 RDW Std Deviation 49.0 fL (36.4-46.3) H 01/17/22 07:16 RDW Coeff of Ty 13.0 % (11.5-14.5) 01/17/22 07:16 Plt Count 179 K/uL (130-400) 01/17/22 07:16 MPV 11.1 fL (9.4-12.4) 01/17/22 07:16 Immature Gran % (Auto) 0.4 % 01/15/22 07:48 Neut % (Auto) 90.7 % 01/15/22 07:48 Lymph % (Auto) 4.9 % 01/15/22 07:48 Bates % (Auto) 3.9 % 01/15/22 07:48 Eos % (Auto) 0.0 % 01/15/22 07:48 Baso % (Auto) 0.1 % 01/15/22 07:48 Neut # (Auto) 13.79 K/uL (1.4-6.5) H 01/15/22 07:48 Lymph # (Auto) 0.75 K/uL (1.2-3.4) L 01/15/22 07:48 Bates # (Auto) 0.60 K/uL (0.24-0.82) 01/15/22 07:48 Eos # (Auto) 0.00 K/uL (0-0.50) 01/15/22 07:48 Baso # (Auto) 0.01 K/uL (0-0.2) 01/15/22 07:48 Immature Gran # (Auto) 0.06 K/uL (0.00-0.02) H 01/15/22 07:48 APTT 27.4 Seconds (21.0-31.0) 01/19/22 05:58 PTT Ratio 1.0 01/19/22 05:58 VBG pH 7.34 (7.36-7.41) L 01/14/22 05:20 VBG pCO2 59 mmHg (38-50) H 01/14/22 05:20 VBG pO2 20 mmHg 01/14/22 05:20 VBG HCO3 32 mmol/L 01/14/22 05:20 VBG O2 Saturation < 60.0 % 01/14/22 05:20 VBG Base Excess 4.3 mEq/L 01/14/22 05:20 Sodium 139 mmol/L (136-145) 01/19/22 05:58 Potassium 3.7 mmol/L (3.5-5.1) 01/19/22 05:58 Chloride 98 mmol/L (98-107) 01/19/22 05:58 Carbon Dioxide 35 mmol/L (21-32) H 01/19/22 05:58 Anion Gap 6 (3-11) 01/19/22 05:58 BUN 46 mg/dl (6-23) H 01/19/22 05:58 Creatinine 1.42 mg/dl (0.6-1.4) H 01/19/22 05:58 Est Cr Clr Drug Dosing 27.0 ml/min 01/19/22 05:58 Est GFR ( Amer) 51.5 ml/min 01/19/22 05:58 Est GFR (Non-Af Amer) 44.4 ml/min 01/19/22 05:58 BUN/Creatinine Ratio 32.4 (10-20) H 01/19/22 05:58 Glucose 88 mg/dl (70-99(Fasting)) 01/19/22 05:58 Estimat Average Glucose 117 mg/dl 01/14/22 05:20 Hemoglobin A1c 5.7 % (4.5-5.6) H 01/14/22 05:20 Calcium 9.0 mg/dl (8.5-10.1) 01/19/22 05:58 Magnesium 2.0 mg/dl (1.7-2.4) 01/15/22 07:48 Total Bilirubin 0.5 mg/dl (0.2-1.0) 01/14/22 05:20 AST 16 U/L (13-39) 01/14/22 05:20 ALT 8 U/L (7-52) 01/14/22 05:20 Alkaline Phosphatase 64 U/L (34-104) 01/14/22 05:20 Troponin I High Sens 80.6 pg/ml (0-20) H* D 01/14/22 10:24 B-Natriuretic Peptide 729 pg/ml (0-100) H 01/14/22 05:20 Total Protein 7.2 gm/dl (6.0-8.3) 01/14/22 05:20 Albumin 3.7 gm/dl (3.4-5.0) 01/14/22 05:20 Globulin 3.5 gm/dl (2.5-4.0) 01/14/22 05:20 Albumin/Globulin Ratio 1.1 (0.9-2) 01/14/22 05:20 Procalcitonin < 0.05 ng/ml (0-0.5) 01/15/22 07:48 SARS-CoV-2 (PCR) NEGATIVE (Negative) 01/14/22 05:23 Impressions Chest X-Ray 01/16/22 07:00 XR chest 1V portable HISTORY: 87 years-old Male CHF acute shortness of breath with congestive heart failure COMPARISON: Chest radiograph 01/14/2022 TECHNIQUE: Portable AP view of the chest FINDINGS: Cardiac silhouette is enlarged. No pneumothorax. Layering pleural effusions with bibasilar consolidation. Mild improvement of the pulmonary edema. Degenerative changes of the shoulders and spine. IMPRESSION: 1. Cardiomegaly with mildly improved pulmonary edema. 2. Persistent pleural effusions with mildly improved bibasilar consolidation. ACT 112: Negative or not required by law. The above report was generated using voice recognition software. It may contain grammatical, syntax or spelling errors. Electronically signed by: Glen Montenegro M.D. 01/16/2022 8:38 AM Hospital Course (1) Acute hypoxemic respiratory failure: Acute on chronic systolic and diastolic CHF Pleural effusion Chronic left bundle branch block Chronic respiratory failure with Hypoxia on home O2 H/O COPD S/P ICD S/P removal secondary to infection in the past Mild valvular heart disease, pulmonary hypertension --CXR:Interstitial pulmonary edema with moderate bilateral pleural effusions and associated bibasilar opacities. Findings have progressed when compared to exam of December 16, 2021. -ECHO from 11/08/21: Mild concentric LVH. Severe global hypokinesis of left ventricle. Septal motion consistent with conduction abnormality. EF 15 to 20%. Left atrium moderately dilated. Left ventricle mildly dilated. Moderate to severe mitral regurgitation. Mild tricuspid regurgitation. --Repeat CXR showed mildly improved pulmonary edema Monitor I's and O's, electrolytes Appreciate cardiology input Continue supplemental oxygen as needed Continue IV Lasix>> transitioned to p.o. Lasix 40 mg twice daily Also added on low-dose hydralazine 10 mg BID Advised to follow-up with PCP and cardiology upon discharge Chronic Troponin elevation Likely demand Ischemia due to above H/O CAD Continue aspirin Denies any chest pain Constipation Continue bowel regimen Hypertension Home medications Monitor H/O NSVT On amiodarone. BPH On Flomax and finasteride. Prediabetes HbA1C: 5.7 CJ on CKD III Monitor renal function Cr 1.4 today Past tobacco/alcohol abuse As per records DVT Px: Heparin SQ Code Status Full code Disposition Home with Home Health Total Time Total Time Spent Total Time Spent (In Minutes): 54 minutes Discharge Plan Discharge Items Patient Disposition: Home - Home Health Services Reason For Visit: RESP FAILURE Discharge Diagnosis: Acute on chronic systolic and diastolic CHF Chronic respiratory failure with Hypoxia on home Oxygen Acute Kidney Injury Condition on Discharge: Fair Activity: Per Instructions section Exercise/Sports: Gradually increase as tolerated Non-emergency contact: Primary Care Provider and Headline Writer Call non-emergency contact if: you have any medication questions, your symptoms worsen and your pain is concerning for you Follow-up/Referrals: Justin Roberts MD [Primary Care Provider] - (Date & Time 01/24/2022 11:20 AM Provider Justin Roberts MD [facility] ) Diet: Heart Healthy Fluids: 2000ml (8 cups) Addtl Attending Provider Instructions: -- Follow-up with your primary care physician Dr. Roberts on 01/24/2022 11:20 AM --Follow-up with your spectrographer Dr. Ba in 3 weeks Seek immediate medical attention if your symptoms reoccur or worsen Please take all medications as instructed on discharge list below. Please call if you have any questions or problems. You can reach a [facility] hospitalist on duty at [facility] 24 hours a day by calling [phone] Call your Primary Care doctor if any of the following symptoms or problems start or get worse: * Shortness of breath or difficulty breathing * Wake up at night short of breath * Chest pain * Cough * Swelling of your hands, feet, or legs * More fatigued or tired with your normal activity * Palpitations - sudden fast heart beats WEIGHT * Weigh yourself every morning after using the bathroom. * Use the same scale. * Wear the same amount of clothing. * Write your weight down on a chart. * Call your Primary Care doctor if you gain more than 2-3 pounds in 1-2 days. MEDICATIONS * Use this discharge instruction sheet for medication instructions. * Take your medications at the time your doctor ordered. * Do not skip a dose of your medicines. * If you miss a dose of medicine, take it as soon as possible, but DO NOT DOUBLE A DOSE. * Read your medicine information when you get home. * Know all of the side effects of your medicine. If in doubt, ask your pharmacist * Call your Primary Care doctor's office if you have any side effects. * Be sure all of your doctors know what medicine and herbs you take (including cold, flu, and herbal medicine). Take the following with you to your follow-up doctor appointments: * Weight Chart * Medication List * List of questions Do not drink excessive alcohol, beer or wine. Pending Studies at Discharge: No Stand-Alone Forms: [facility], Smoking Cessation Medications and DC Order Prescriptions: New hydralazine 10 mg Tablet 10 mg PO BID17 Qty: 60 0RF furosemide 40 mg Tablet 40 mg PO BID17 Qty: 60 0RF potassium chloride 20 mEq Tablet,Er Particles/Crystals 20 meq PO DAILY Qty: 30 0RF Continued aspirin 81 mg Tablet,Delayed Release (Dr/Ec) 81 mg PO QAM mirtazapine 45 mg tablet 22.5 mg PO HS finasteride 5 mg tablet 5 mg PO HS amiodarone 200 mg tablet 100 mg PO QAM Qty: 0 0RF tamsulosin 0.4 mg capsule 0.4 mg PO DAILY acetaminophen 325 mg Tablet 650 mg PO Q4H PRN (Reason: fever or pain) Qty: 90 0RF isosorbide dinitrate 5 mg Tablet 5 mg PO BID Qty: 60 0RF Anoro Ellipta 62.5-25 mcg/actuation Blister With Device 1 ea inhalation DAILY Qty: 60 1RF Discontinued furosemide 20 mg tablet 20 mg PO BID Discharge Orders: Discharge Order (Routine); Ordered 01/19/22 Ordered By: Giancarlo Moreno Admission Data Admit Date/Time: 01/14/22 06:49 Attending Provider: Giancarlo Moreno Admit Provider: Cj Galeana Primary Care Provider: Justin Roberts Other Providers: Cj Galeana ; Krzysztof Davidson ; Samuel Henderson ; Rajeev Ba ; Andrey Hart ; Roel Kidd ; Justin Valdez ; Nancy Reid ; Marilou Zamorano ; Norah Bowen ; Fox Vlale
== END 2022-01-19 14:37 | disposition home health service (06) | DRG 291 ==
LOC: ED 05:05 → 2S 06:49
DX: E87.1 Hypo-osmolality and hyponatremia; I27.20 Pulmonary hypertension, unspecified; N40.0 Benign prostatic hyperplasia without lower urinary tract symptoms; N18.30 Chronic kidney disease, stage 3 unspecified; I25.10 Atherosclerotic heart disease of native coronary artery without angina pectoris; J96.21 Acute and chronic respiratory failure with hypoxia; I24.8 Other forms of acute ischemic heart disease; I44.7 Left bundle-branch block, unspecified; Z68.1 Body mass index [BMI] 19.9 or less, adult; R64 Cachexia; I13.0 Hypertensive heart and chronic kidney disease with heart failure and stage 1 through stage 4 chronic kidney disease, or unspecified chronic kidney disease; K59.00 Constipation, unspecified; R73.03 Prediabetes; Z99.81 Dependence on supplemental oxygen; J44.1 Chronic obstructive pulmonary disease with (acute) exacerbation; I50.43 Acute on chronic combined systolic (congestive) and diastolic (congestive) heart failure; Z87.891 Personal history of nicotine dependence

== ENCOUNTER 2022-04-26 17:18 | Inpatient (IN) ==
--- NOTE | 2022-04-26 17:35 | Emergency Department Note ---
Impression & Plan CONNELLY (dyspnea on exertion), NSVT (nonsustained ventricular tachycardia), COPD (chronic obstructive pulmonary disease), Nonischemic cardiomyopathy (Ruled Out): Community acquired pneumonia ED Provider Note Provider: José Dunn MD DATE OF SERVICE: 04/26/2022 CHIEF COMPLAINT: Shortness of breath HISTORY OF PRESENT ILLNESS: Patient is a 87-year-old gentleman history of COPD on 3 L of oxygen, CHF, hypertension presenting here today via ambulance from his home. Reports over the past week he has been having worsening shortness of breath when getting up and walking around and some dizziness with this. Denies falling over the last week. Fell several weeks ago. Denies any headache. Denies dizziness currently. EMS report the patient was transiently hypotensive in the 80s for them but improved with repositioning in the ambulance into the 100s. Patient did not receive any medications prior to arrival with the ambulance. Patient denies chest pain. Denies significant leg swelling. States his breathing is not too bad if he still but if he gets up to move he gets wor se. Denies any new numbness or tingling. States he has been trying to eat and gained some weight but has not been successful in this. Has home nursing. PAST MEDICAL HISTORY: As noted above MEDICATIONS: Reviewed home medications SOCIAL HISTORY: Lives at home with PHYSICAL EXAM: GENERAL: alert and oriented in no acute distress on stretcher Head: normocephalic and atraumatic EYES: No injection, discharge or icterus. PERRL, EOMI. NECK: Trachea midline. ENT: Mucous membranes pink and moist. LUNGS: Airway patent. No retractions. Breath sounds with rales left greater than right in the bases HEART: Regular rate and rhythm. No chest wall tenderness ABDOMEN: Soft and non-tender, without guarding or rebound. SKIN: Acyanotic, warm, dry, without rashes EXTREMITIES: Without swelling, tenderness or deformity NEUROLOGICAL: No focal deficits. No aphasia. No facial droop or slurred speech. EK bpm sinus rhythm with left bundle branch block. No acute ST segment elevation with a QTC of 497. No PAC. CONTINUOUS CARDIAC MONITORING: was ordered and showed a heart rate of 60s-70s bpm in sinus rhythm and a bundle branch block with occasional PVC and 1 episode of 7 beat run of NS V. tach. Patient's laboratory studies and imaging reviewed. Differential includes Reactive airway disease, pneumonia, pneumothorax, COPD, CHF, infections, cardiac ischemia, pulmonary embolism, as well as other pathologies. IMPRESSION/MEDICAL DECISION MAKING: Patient significant history of COPD on 3 L of oxygen as well as CHF. Does not appear significant fluid overload on clinical exam. Difficult given his severe CHF as well as COPD to determine etiology of some of his dyspnea on exertion. Lower suspicion for PE. Not significantly hypoxic off of his baseline at rest here. Evidence of DVT on clinical exam. COVID and flu test sent to exclude these. Basic blood work sent to look for signs of anemia or elevated troponin and of course EKG was completed. Not having active chest pain however lower suspicion for acute ACS. Not significant wheezing but some rhonchi on physical exam. COVID and influenza negative. BNP minimally elevated but not as severely as before. Chest x-ray does not clearly identify per radiology report significant pulmonary edema with trace effusion. CKD may be just a hint worse than normal. Slightly worse than normal anemia but not severe. No leukoc ytosis. Troponin mildly elevated but not as much as previously either. Does not seem quite consistent with a CHF exacerbation. Not horribly wheezy like COPD but will trial a DuoNeb and a small dose of steroids. While on telemetry he did have a brief possibly 7 beat episode of nonsustained V. tach. History of prior pacemaker given his low EF but removed due to infection previously he notes. Is on amiodarone at home and has a history in the chart of nonsustained V. tach. Discussed with him given his ongoing breathing issues further care here at the hospital and he was very much in agreement as he felt unsafe going home given his dyspnea on exertion. DIAGNOSIS: Dyspnea on exertion, intermittent dizziness, cardiomyopathy/NSVT DISPOSITION: Hospitalist will evaluate Patient was agreeable with this plan. 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 Underwent procedure without any complications; monitored overnight and discharged home. 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 11/01/18 = widely patent coronary arteries History of cardiac cath SEPTEMBER 2018 AT [facility] NO STENTS History of cataract surgery BILATERAL History of colonoscopy History of tonsillectomy and adenoidectomy History of total left hip replacement Family History Mother Hypertension Brother FHx: myocardial infarction HALF-BROTHER Sister Kidney transplant status Social History Smoking Status: Never smoker Tobacco Type: Cigarettes Second Hand Exposure: No; Hx Alcohol Use: No Hx Substance Use: No Preferred Language: Slovak Communication Ability: Effective Ibm Bpm Architect Required: No Beliefs That Will Affect Care: None marital status: Current Living Situation: Spouse Current Living Situation Comment: UNABLE TO CONFIRM AT THIS TIME current occupational status: retired How many Children do You have: 3 Feels Safe at Home: Yes Assistive Devices: Oxygen - Continuous Allergies Allergies Allergy/AdvReac Type Severity Reaction Status Date / Time No Known Allergies Allergy Unknown Verified 04/26/22 20:01 Home Meds Home Medications Medication Instructions Recorded Confirmed aspirin 81 mg tablet,delayed 81 mg PO QAM 10/27/18 04/26/22 release mirtazapine 45 mg tablet 22.5 mg PO HS 10/27/18 04/26/22 finasteride 5 mg tablet 5 mg PO HS 07/31/19 04/26/22 tamsulosin 0.4 mg capsule 0.4 mg PO DAILY 06/23/21 04/26/22 acetaminophen 325 mg tablet 325 mg PO Q4H PRN Pain 04/26/22 04/26/22 fluticasone 250 mcg-salmeterol 50 1 inh inhalation AMHS 04/26/22 04/26/22 mcg/dose blistr powdr for inhalation (Wixela Inhub) food supplemt, lactose-reduced 2 ea PO DAILY 04/26/22 04/26/22 hydralazine 10 mg tablet 5 mg PO BID17 04/26/22 04/26/22 melatonin 5 mg tablet 5 mg PO HS PRN Sleep 04/26/22 04/26/22 mometasone 50 mcg/actuation nasal 2 spray intranasal DAILY 04/26/22 04/26/22 spray potassium chloride 20 mEq oral 20 meq PO QAM 04/26/22 04/26/22 packet (Dolly-Cayden) Previous Rx's Medication Instructions Recorded amiodarone 200 mg tablet 100 mg PO QAM #0 tabs 08/11/19 isosorbide dinitrate 5 mg tablet 5 mg PO BID #60 tabs 11/15/21 furosemide 40 mg tablet 40 mg PO BID17 #60 tabs 01/19/22 Results & Data (ED) Vital Signs Vital Signs - 24 hr 04/26/22 17:29 04/26/22 17:29 04/26/22 17:59 Temperature 36.7 C Temperature Source Oral Pulse Rate 83 84 Pulse Rate [Finger] Pulse Rhythm Regular Regular Pulse Strength Normal Respiratory Rate 24 24 Respiratory Effort / Characteristics Spontaneous Respiratory Depth Shallow Blood Pressure 104/66 Blood Pressure [Right Arm] Blood Pressure Mean 78 Blood Pressure Mean [Right Arm] Blood Pressure Position Sitting Pulse Oximetry 100 100 Oxygen Delivery Method Nasal Cannula Nasal Cannula Nasal Cannula Oxygen Flow Rate 3 3 3 Sepsis Recent Fever Within 48 Hours No Sepsis New/Unexplained Change in Mental Status No Sepsis Action Taken by Nursing No Action Required 04/26/22 17:59 04/26/22 19:47 04/26/22 19:00 Temperature Temperature Source Pulse Rate 66 Pulse Rate [Finger] 62 67 Pulse Rhythm Pulse Strength Respiratory Rate 22 17 18 Respiratory Effort / Characteristics Respiratory Depth Blood Pressure 126/50 L Blood Pressure [Right Arm] 120/46 L 126/56 L Blood Pressure Mean 75 Blood Pressure Mean [Right Arm] 70 79 Blood Pressure Position Pulse Oximetry 100 100 100 Oxygen Delivery Method Nasal Cannula Oxygen Flow Rate 3 Sepsis Recent Fever Within 48 Hours Sepsis New/Unexplained Change in Mental Status Sepsis Action Taken by Nursing 04/26/22 19:30 04/26/22 20:00 04/26/22 20:30 Temperature Temperature Source Pulse Rate 64 63 64 Pulse Rate [Finger] Pulse Rhythm Pulse Strength Respiratory Rate 17 19 16 Respiratory Effort / Characteristics Respiratory Depth Blood Pressure 113/47 L 127/51 L 109/48 L Blood Pressure [Right Arm] Blood Pressure Mean 69 76 68 Blood Pressure Mean [Right Arm] Blood Pressure Position Pulse Oximetry 100 100 100 Oxygen Delivery Method Oxygen Flow Rate Sepsis Recent Fever Within 48 Hours Sepsis New/Unexplained Change in Mental Status Sepsis Action Taken by Nursing 04/26/22 21:00 Temperature Temperature Source Pulse Rate 82 Pulse Rate [Finger] Pulse Rhythm Pulse Strength Respiratory Rate 25 H Respiratory Effort / Characteristics Respiratory Depth Blood Pressure 130/53 L Blood Pressure [Right Arm] Blood Pressure Mean 78 Blood Pressure Mean [Right Arm] Blood Pressure Position Pulse Oximetry 98 Oxygen Delivery Method Oxygen Flow Rate Sepsis Recent Fever Within 48 Hours Sepsis New/Unexplained Change in Mental Status Sepsis Action Taken by Nursing Laboratory Data 04/26/22 17:35 04/26/22 17:35 Lab Results 04/26/22 04/26/22 04/26/22 Range/Units 17:35 17:35 17:35 WBC 8.75 (4.8-10.8) K/ul RBC 2.71 L (4.63-6.08) M/uL Hgb 9.1 L (14.0-18.0) g/dl Hct 27.7 L (40.1-51.0) % MCV 102.2 H (80.0-100.0) fL MCH 33.6 (25.0-34.0) pg MCHC 32.9 (32.0-36.0) g/dL RDW Std Deviation 45.9 (36.4-46.3) fL RDW Coeff of Ty 12.4 (11.5-14.5) % Plt Count 295 (130-400) K/uL MPV 11.1 (9.4-12.4) fL Immature Gran % (Auto) 0.8 % Neut % (Auto) 75.0 % Lymph % (Auto) 9.4 % [place] % (Auto) 8.8 % Eos % (Auto) 5.0 % Baso % (Auto) 1.0 % Neut # (Auto) 6.56 H (1.4-6.5) K/uL Lymph # (Auto) 0.82 L (1.2-3.4) K/uL [place] # (Auto) 0.77 (0.24-0.82) K/uL Eos # (Auto) 0.44 (0-0.50) K/uL Baso # (Auto) 0.09 (0-0.2) K/uL Immature Gran # (Auto) 0.07 H (0.00-0.02) K/uL PT 11.4 (9.0-12.0) Seconds INR 1.1 (0.9-1.1) APTT 31.0 (21.0-31.0) Seconds PTT Ratio 1.1 Sodium 136 (136-145) mmol/L Potassium 4.1 (3.5-5.1) mmol/L Chloride 93 L (98-107) mmol/L Carbon Dioxide 38 H (21-32) mmol/L Anion Gap 5 (3-11) BUN 36 H (6-23) mg/dl Creatinine 1.89 H (0.6-1.4) mg/dl Est Cr Clr Drug Dosing 20.7 ml/min Est GFR ( Amer) 36.4 ml/min Est GFR (Non-Af Amer) 31.4 ml/min BUN/Creatinine Ratio 19.0 (10-20) Glucose 100 H (70-99(Fasting)) mg/dl Calcium 8.9 (8.5-10.1) mg/dl Magnesium 2.4 (1.7-2.4) mg/dl Iron (35-175) mcg/dl TIBC (250-450) mcg/dl Unsaturated IBC (155-355) mcg/dl Transferrin % Sat (20-50) % Ferritin (8-388) ng/ml Total Bilirubin 0.4 (0.2-1.0) mg/dl AST 14 (13-39) U/L ALT 8 (7-52) U/L Alkaline Phosphatase 52 (34-104) U/L Troponin I High Sens 41.1 H (0-20) pg/ml B-Natriuretic Peptide (0-100) pg/ml Total Protein 8.6 H (6.0-8.3) gm/dl Albumin 3.4 (3.4-5.0) gm/dl Globulin 5.2 H (2.5-4.0) gm/dl Albumin/Globulin Ratio 0.7 L (0.9-2) Vitamin B12 (180-914) pg/ml Folate (>5.38) ng/ml Urine Color Urine Appearance (Clear) Urine pH (4.5-7.5) Ur Specific [place] (1.000-1.030) Urine Protein (Negative) Urine Glucose (UA) (Negative) Urine Ketones (Negative) Urine Blood (Negative) Urine Nitrite (Negative) Urine Bilirubin (Negative) Urine Urobilinogen (Negative) Ur Leukocyte Esterase (Negative) SARS-CoV-2 (PCR) (Negative) Influenza Type A (PCR) (Neg) Influenza Type B (PCR) (Neg) RSV (RT-PCR) (Neg) 04/26/22 04/26/22 04/26/22 Range/Units 17:35 17:35 17:45 WBC (4.8-10.8) K/ul RBC (4.63-6.08) M/uL Hgb (14.0-18.0) g/dl Hct (40.1-51.0) % MCV (80.0-100.0) fL MCH (25.0-34.0) pg MCHC (32.0-36.0) g/dL RDW Std Deviation (36.4-46.3) fL RDW Coeff of Ty (11.5-14.5) % Plt Count (130-400) K/uL MPV (9.4-12.4) fL Immature Gran % (Auto) % Neut % (Auto) % Lymph % (Auto) % [place] % (Auto) % Eos % (Auto) % Baso % (Auto) % Neut # (Auto) (1.4-6.5) K/uL Lymph # (Auto) (1.2-3.4) K/uL [place] # (Auto) (0.24-0.82) K/uL Eos # (Auto) (0-0.50) K/uL Baso # (Auto) (0-0.2) K/uL Immature Gran # (Auto) (0.00-0.02) K/uL PT (9.0-12.0) Seconds INR (0.9-1.1) APTT (21.0-31.0) Seconds PTT Ratio Sodium (136-145) mmol/L Potassium (3.5-5.1) mmol/L Chloride (98-107) mmol/L Carbon Dioxide (21-32) mmol/L Anion Gap (3-11) BUN (6-23) mg/dl Creatinine (0.6-1.4) mg/dl Est Cr Clr Drug Dosing ml/min Est GFR ( Amer) ml/min Est GFR (Non-Af Amer) ml/min BUN/Creatinine Ratio (10-20) Glucose (70-99(Fasting)) mg/dl Calcium (8.5-10.1) mg/dl Magnesium (1.7-2.4) mg/dl Iron 31 L (35-175) mcg/dl TIBC 210 L (250-450) mcg/dl Unsaturated IBC 179 (155-355) mcg/dl Transferrin % Sat 15 L (20-50) % Ferritin 227.2 (8-388) ng/ml Total Bilirubin (0.2-1.0) mg/dl AST (13-39) U/L ALT (7-52) U/L Alkaline Phosphatase (34-104) U/L Troponin I High Sens (0-20) pg/ml B-Natriuretic Peptide 224 H (0-100) pg/ml Total Protein (6.0-8.3) gm/dl Albumin (3.4-5.0) gm/dl Globulin (2.5-4.0) gm/dl Albumin/Globulin Ratio (0.9-2) Vitamin B12 823 (180-914) pg/ml Folate > 22.30 (>5.38) ng/ml Urine Color Urine Appearance (Clear) Urine pH (4.5-7.5) Ur Specific [place] (1.000-1.030) Urine Protein (Negative) Urine Glucose (UA) (Negative) Urine Ketones (Negative) Urine Blood (Negative) Urine Nitrite (Negative) Urine Bilirubin (Negative) Urine Urobilinogen (Negative) Ur Leukocyte Esterase (Negative) SARS-CoV-2 (PCR) (Negative) Influenza Type A (PCR) (Neg) Influenza Type B (PCR) (Neg) RSV (RT-PCR) (Neg) 04/26/22 04/26/22 Range/Units 17:45 21:00 WBC (4.8-10.8) K/ul RBC (4.63-6.08) M/uL Hgb (14.0-18.0) g/dl Hct (40.1-51.0) % MCV (80.0-100.0) fL MCH (25.0-34.0) pg MCHC (32.0-36.0) g/dL RDW Std Deviation (36.4-46.3) fL RDW Coeff of Ty (11.5-14.5) % Plt Count (130-400) K/uL MPV (9.4-12.4) fL Immature Gran % (Auto) % Neut % (Auto) % Lymph % (Auto) % [place] % (Auto) % Eos % (Auto) % Baso % (Auto) % Neut # (Auto) (1.4-6.5) K/uL Lymph # (Auto) (1.2-3.4) K/uL [place] # (Auto) (0.24-0.82) K/uL Eos # (Auto) (0-0.50) K/uL Baso # (Auto) (0-0.2) K/uL Immature Gran # (Auto) (0.00-0.02) K/uL PT (9.0-12.0) Seconds INR (0.9-1.1) APTT (21.0-31.0) Seconds PTT Ratio Sodium (136-145) mmol/L Potassium (3.5-5.1) mmol/L Chloride (98-107) mmol/L Carbon Dioxide (21-32) mmol/L Anion Gap (3-11) BUN (6-23) mg/dl Creatinine (0.6-1.4) mg/dl Est Cr Clr Drug Dosing ml/min Est GFR ( Amer) ml/min Est GFR (Non-Af Amer) ml/min BUN/Creatinine Ratio (10-20) Glucose (70-99(Fasting)) mg/dl Calcium (8.5-10.1) mg/dl Magnesium (1.7-2.4) mg/dl Iron (35-175) mcg/dl TIBC (250-450) mcg/dl Unsaturated IBC (155-355) mcg/dl Transferrin % Sat (20-50) % Ferritin (8-388) ng/ml Total Bilirubin (0.2-1.0) mg/dl AST (13-39) U/L ALT (7-52) U/L Alkaline Phosphatase (34-104) U/L Troponin I High Sens (0-20) pg/ml B-Natriuretic Peptide (0-100) pg/ml Total Protein (6.0-8.3) gm/dl Albumin (3.4-5.0) gm/dl Globulin (2.5-4.0) gm/dl Albumin/Globulin Ratio (0.9-2) Vitamin B12 (180-914) pg/ml Folate (>5.38) ng/ml Urine Color Yellow Urine Appearance Clear (Clear) Urine pH 7.0 (4.5-7.5) Ur Specific [place] 1.012 (1.000-1.030) Urine Protein Negative (Negative) Urine Glucose (UA) Negative (Negative) Urine Ketones Negative (Negative) Urine Blood Negative (Negative) Urine Nitrite Negative (Negative) Urine Bilirubin Negative (Negative) Urine Urobilinogen Negative (Negative) Ur Leukocyte Esterase Negative (Negative) SARS-CoV-2 (PCR) NEGATIVE (Negative) Influenza Type A (PCR) Negative (Neg) Influenza Type B (PCR) Negative (Neg) RSV (RT-PCR) Negative (Neg) Administered Medications Discontinued Medications Albuterol (Albut/Ipratrop 3mg/0.5mg Neb 3 Ml Vial) 3 ml NEB NOW STA; Protocol Stop: 04/26/22 20:03 Last Admin: 04/26/22 20:24 Dose: 3 ml Documented By: UMA Methylprednisolone (Methylprednisolone 40 Mg/Ml Vial) 40 mg IV NOW STA Stop: 04/26/22 20:35 Last Admin: 04/26/22 21:11 Dose: 40 mg Documented By: UMA Imaging Data Radiologist's Impression: Chest X-Ray 04/26/22 17:29 SINGLE VIEW CHEST CLINICAL HISTORY: Dyspnea FINDINGS: 2 AP, portable, upright chest radiographs are compared to study dated 01/16/2022 and correlated with chest CT dated 11/08/2021. The heart is enlarged noting atherosclerotic calcification of the thoracic aorta. The pulmonary vasculature is noncongested. Emphysema and chronic interstitial thickening is similar to previous. A small right pleural effusion is suspected. Scarring/atelectasis is noted at the lung bases. No pneumothorax is seen. The skeletal structures are osteopenic. The bony thorax is grossly intact. IMPRESSION: 1. Cardiomegaly and emphysema without radiographic evidence of congestive failure. 2. There is a small right pleural effusion. ACT 112: Negative or not required by law. Electronically signed by: Dustin Rosales M.D. 04/26/2022 5:49 PM Discharge Plan Visit Data Chief Complaint: Shortness of Breath/Dyspnea Stated Complaint: SOB ED Provider: José Dunn Discharge Problem: CONNELLY (dyspnea on exertion), NSVT (nonsustained ventricular tachycardia), COPD (chronic obstructive pulmonary disease), Nonischemic cardiomyopathy Discharge Problem: (Ruled Out): Community acquired pneumonia Patient Disposition: Being Evaluated by Hospitalist Discharge Instructions Interventions: ED Discharge Assessment Last Done: 04/26/22 23:34
--- NOTE | 2022-04-26 17:50 | XRay Report ---
SINGLE VIEW CHEST CLINICAL HISTORY: Dyspnea FINDINGS: 2 AP, portable, upright chest radiographs are compared to study dated 01/16/2022 and correla waldo with chest CT dated 11/08/2021. The heart is enlarged noting atherosclerotic calcification of the thoracic aorta. The pulmonary vasculature is noncongested. Emphysema and chronic interstitial thicken ing is similar to previous. A small right pleural effusion is suspected. Scarring/atelectasis is note d at the lung bases. No pneumothorax is seen. The skeletal structures are osteopenic. The bony thorax is grossly intact. IMPRESSION: 1. Cardiomegaly and emphysema without radiographic evidence of congestive failure. 2. There is a small right pleural effusion. ACT 112: Negative or not required by law. Electronically signed by: Dustin Rosales M.D. 04/26/2022 5:49 PM
[2022-04-26 18:02] LABS: Basophils # (auto) 0.09 K/uL (0-0.2); Eosinophils # (auto) 0.44 K/uL (0-0.50); Hematocrit (blood only) 27.7 % (40.1-51.0); Hemoglobin 9.1 g/dl (14.0-18.0); Immature Granulocytes # (auto) 0.07 K/uL (0.00-0.02); Immature Granulocytes % (auto) 0.8 %; Lymphocytes # (auto) 0.82 K/uL (1.2-3.4); Lymphocytes % (auto) 9.4 %; Mean Corpuscular Hemoglobin 33.6 pg (25.0-34.0); Mean Corpuscular Hgb Conc 32.9 g/dL (32.0-36.0); Mean Corpuscular Volume 102.2 fL (80.0-100.0); Mean Platelet Volume 11.1 fL (9.4-12.4); Monocytes # (auto) 0.77 K/uL (0.24-0.82); Monocytes % (auto) 8.8 %; Neutrophils # (auto) 6.56 K/uL (1.4-6.5); Platelet Count 295 K/uL (130-400); RDW Coefficient of Variation 12.4 % (11.5-14.5); RDW Standard Deviation 45.9 fL (36.4-46.3); Red Blood Count 2.71 M/uL (4.63-6.08); White Blood Count 8.75 K/ul (4.8-10.8)
[2022-04-26 18:14] LABS: INR 1.1 (0.9-1.1); Partial Thromboplastin Ratio 1.1; Prothrombin Time 11.4 Seconds (9.0-12.0)
[2022-04-26 18:30] LABS: Albumin Globulin Ratio 0.7 (0.9-2); Albumin Level 3.4 gm/dl (3.4-5.0); Bilirubin,Total 0.4 mg/dl (0.2-1.0); Calcium 8.9 mg/dl (8.5-10.1); Creatinine Clr Calc Pharmacy 20.7 ml/min; Est GFR (African American) 36.4 ml/min; Est GFR (Non-African American) 31.4 ml/min; Globulin 5.2 gm/dl (2.5-4.0); Magnesium 2.4 mg/dl (1.7-2.4); Potassium 4.1 mmol/L (3.5-5.1); Total Protein 8.6 gm/dl (6.0-8.3)
[2022-04-26 18:33] LABS: Troponin I High Sensitivity 41.1 pg/ml (0-20)
[2022-04-26 19:03] LABS: Influenza A virus by PCR Negative (Neg); Influenza B virus by PCR Negative (Neg); RSV by PCR Negative (Neg); SARS CoV2 RNA(COVID-19) Ceph NEGATIVE (Negative)
[2022-04-26] MEDS ORDERED: ALBUT/IPRATROP 3MG/0.5MG NEB 3 ML VIAL NEB STA (20:02)
[2022-04-26 21:32] LABS: Appearance Urine Clear (Clear); Bilirubin Urine Negative (Negative); Blood Urine Negative (Negative); Color Urine Yellow; Glucose Urine UA Negative (Negative); Ketones Urine Negative (Negative); Leukocyte Esterase Urine Negative (Negative); Nitrite Urine Negative (Negative); Protein Urine Negative (Negative); Specific Gravity Urine 1.012 (1.000-1.030); Urobilinogen Urine Negative (Negative)
[2022-04-26] MEDS ORDERED: MAGNESIUM HYDROXIDE SUSP 30 ML UDC PO PRN (21:46)
[2022-04-26] MEDS ORDERED: ALUMINUM/MAGNESIUM SUSP 30 ML UDC PO PRN (21:46)
[2022-04-26] MEDS ORDERED: ACETAMINOPHEN 325 MG TAB PO PRN (21:46)
[2022-04-26] MEDS ORDERED: ONDANSETRON INJ 2 MG/ML 2 ML VIAL IV PRN (21:46)
--- NOTE | 2022-04-26 21:47 | History & Physical Report ---
Date of Service April 26, 2022 Assessment & Plan (1) CONNELLY (dyspnea on exertion): Plan Dyspnea on exertion: Multifactorial, viral panel and UA negative. End-stage systolic heart failure Failure to thrive Acute on Chronic anemia: Hemoglobin 9.1 at admission, baseline hemoglobin greater than 11, FOBT, iron panel, monitor H&H. Likely due to poor appetite. Patient presents with dyspnea on exertion, progressively worsening. Patient reports worsening appetite on the background of chronic poor appetite. Patient appears cachectic and ill/weak/frail. Patient denies chest pain. Admitting CXR w/ no acute findings. Admitting Trop/EKG reviewed, will trend troponin, EKG with chest pain, echo. Admitting BNP better than in the past. Regular diet as he has poor appetite, dietitian consult. Tele monitoring. Will resume his home cardiac medications, continue to monitor for volume status. Patient at his baseline oxygen requirement. Other chronic medical conditions: As mentioned in HPI ---> resume home meds as able Mild creatinine elevation: BUN appears around baseline, mild creatinine elevation could be new baseline/fluctuation. BMP in AM. Heparin subcu Full code History of Present Illness Chief Complaint: Dyspnea with exertion Primary Care Provider: Justin Roberts MD 87-year-old man with PMH of chronic respiratory failure secondary to COPD on home O2 3L, chronic systolic heart failure (15 to 20%, TTE 2021) status post ICD status post removal secondary to infection, CAD, chronic LBBB, valvular heart disease (moderate to severe MR, mild TR), pulmonary hypertension, hypertension, hyperlipidemia, chronic anemia (baseline hemoglobin 11 ), past tobacco/alcohol abuse presented to the ED 04/26/2022 with complaint of progressive dyspnea with exertion. Patient reports shortness of breath and dizziness with walking as he describes he needs to sit down to catch up on breath when he is walking from his bedroom to kitchen. This has been going on for last few weeks. Patient reports worsening shortness of breath and is now not able to cover that much of a distance since last few days. Patient also reports cough increasing in frequency but has chronic scant yellow mucus with the cough which has not changed. Patient denies sore throat/chest pain/palpitations/belly pain/acute changes in his bowel or bladder habit. Patient reports chronic low appetite which has gotten even worse lately. Patient has been maintaining saturation on his baseline oxygen which is 3 L. Patient denies smoking/alcohol/drug use history but per records he has past tobacco and alcohol abuse. Full code as per my discussion with the patient. 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 Medications reviewed with the patient, plan of care discussed with the patient. Allergies Allergy/AdvReac Type Severity Reaction Status Date / Time No Known Allergies Allergy Unknown Verified 04/26/22 20:01 Home Medications Medication Instructions Recorded Confirmed Type aspirin 81 mg tablet,delayed 81 mg PO QAM 10/27/18 04/26/22 History release mirtazapine 45 mg tablet 22.5 mg PO HS 10/27/18 04/26/22 History finasteride 5 mg tablet 5 mg PO HS 07/31/19 04/26/22 History amiodarone 200 mg tablet 100 mg PO QAM #0 tabs 08/11/19 04/26/22 Rx tamsulosin 0.4 mg capsule 0.4 mg PO DAILY 06/23/21 04/26/22 History isosorbide dinitrate 5 mg tablet 5 mg PO BID #60 tabs 11/15/21 04/26/22 Rx furosemide 40 mg tablet 40 mg PO BID17 #60 tabs 01/19/22 04/26/22 Rx acetaminophen 325 mg tablet 325 mg PO Q4H PRN Pain 04/26/22 04/26/22 History fluticasone 250 mcg-salmeterol 50 1 inh inhalation AMHS 04/26/22 04/26/22 History mcg/dose blistr powdr for inhalation (W[employer] Inhub) food supplemt, lactose-reduced 2 ea PO DAILY 04/26/22 04/26/22 History hydralazine 10 mg tablet 5 mg PO BID17 04/26/22 04/26/22 History melatonin 5 mg tablet 5 mg PO HS PRN Sleep 04/26/22 04/26/22 History mometasone 50 mcg/actuation nasal 2 spray intranasal DAILY 04/26/22 04/26/22 History spray potassium chloride 20 mEq oral 20 meq PO QAM 04/26/22 04/26/22 History packet (Klor-Con) Past Med/Surg History Medical History (Updated 04/26/22 @ 20:03 by José Dunn M.D.) 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 Underwent procedure without any complications; monitored overnight and discharged home. 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 11/01/18 = widely patent coronary arteries History of cardiac cath SEPTEMBER 2018 AT [facility] NO STENTS History of cataract surgery BILATERAL History of colonoscopy History of tonsillectomy and adenoidectomy History of total left hip replacement Family History Mother Hypertension Brother FHx: myocardial infarction HALF-BROTHER Sister Kidney transplant status Social History Smoking Status: Never smoker Tobacco Type: Cigarettes Second Hand Exposure: No; Hx Alcohol Use: No Hx Substance Use: No Preferred Language: Vietnamese Communication Ability: Effective Still Operator Batch Or Continuous Required: No Beliefs That Will Affect Care: None marital status: Current Living Situation: Spouse Current Living Situation Comment: UNABLE TO CONFIRM AT THIS TIME current occupational status: retired How many Children do You have: 3 Feels Safe at Home: Yes Assistive Devices: Oxygen - Continuous Review of Systems Review of Systems: Negative otherwise mentioned in HPI. Physical Exam Physical Exam: GENERAL: Alert and oriented x3. NAD, on 3L NC O2. Cachectic meaghan earing, chronically ill/weak/frail appearing. HEENT: No pallor, no icterus. Pupils equal, round and reactive to light. Oral mucosa moist. NECK: No JVD, no neck masses. HEART: S1 and S2 heard. Regular rate and rhythm. No murmur, no gallop. RESPIRATORY SYSTEM: Normal AP diameter. No accessory muscle use. No wheezing, b/b crackles. ABDOMEN: Soft, bowel sounds present, nontender, no distention. CENTRAL NERVOUS SYSTEM: No facial droop. Speech is clear. Obeys simple commands. Moves extremities. EXTREMITIES: No edema, no erythema seen. Results & Data Results & Data ([facility]) Vital Signs (Past 12 Hours) Vital Signs Temp Pulse Pulse Resp BP BP Pulse Ox 04/26/22 19:47 67 17 126/56 L 100 04/26/22 17:59 62 22 120/46 L 100 04/26/22 17:59 04/26/22 17:29 84 24 100 04/26/22 17:29 36.7 C 83 24 104/66 100 O2 Del Method O2 Flow Rate 04/26/22 19:47 04/26/22 17:59 Nasal Cannula 3 04/26/22 17:59 Nasal Cannula 3 04/26/22 17:29 Nasal Cannula 3 04/26/22 17:29 Nasal Cannula 3
[2022-04-26 22:38] LABS: Ferritin 227.2 ng/ml (8-388)
[2022-04-26 22:45] LABS: Vitamin B12 823 pg/ml (180-914)
[2022-04-26] MEDS ORDERED: MIRTAZAPINE SOLTAB 15 MG PO SCH (23:34)
[2022-04-26] MEDS ORDERED: MELATONIN 3 MG TAB PO PRN (23:43)
[2022-04-27] MEDS: ISOSORBIDE DINITRATE 5 MG TAB PO SCH ×3 (00:54→11:33)
[2022-04-27] MEDS: FINASTERIDE 5 MG TAB PO SCH ×2 (00:54→19:58)
[2022-04-27 01:32] LABS: Hematocrit (blood only) 28.1 % (40.1-51.0); Mean Corpuscular Hemoglobin 32.8 pg (25.0-34.0); Mean Corpuscular Volume 102.6 fL (80.0-100.0); Mean Platelet Volume 10.9 fL (9.4-12.4); Platelet Count 278 K/uL (130-400); RDW Coefficient of Variation 12.3 % (11.5-14.5); Red Blood Count 2.74 M/uL (4.63-6.08); White Blood Count 8.78 K/ul (4.8-10.8)
[2022-04-27 02:01] LABS: BUN Creatinine Ratio 18.5 (10-20); Calcium 8.7 mg/dl (8.5-10.1); Creatinine Clr Calc Pharmacy 19.5 ml/min; Est GFR (Non-African American) 29.3 ml/min; Magnesium 2.3 mg/dl (1.7-2.4); Potassium 3.6 mmol/L (3.5-5.1)
[2022-04-27] MEDS: MIRTAZAPINE TAB 15 MG TAB PO SCH ×2 (02:10→19:58)
--- NOTE | 2022-04-27 08:23 | Hospitalist Progress Note ---
Date of Service April 27, 2022 Assessment & Plan (1) CONNELLY (dyspnea on exertion): Plan Dyspnea on exertion: Multifactorial, viral panel and UA negative. End-stage systolic heart failure COPD (Chronic resp. failure - on 3L at baseline) Failure to thrive. Severe protein-calorie malnutrition Anemia: no obvious bleed. Hemoglobin 9.1 at admission, baseline hemoglobin greater than 11, FOBT, iron panel, monitor H&H. Likely due to poor appetite. Patient presents with dyspnea on exertion, progressively worsening. Patient reports worsening appetite on the background of chronic poor appetite. Patient appears cachectic and ill/weak/frail. Patient denies chest pain. Admitting CXR w/ no acute findings. Admitting Trop/EKG reviewed, trop trending down (only min. elevated at 40), EKG with chest pain. Admitting BNP better than in the past. Echo obtained, continues to show EF 15 to 20%. Regular diet as he has poor appetite, dietitian consult. Tele monitoring. Resumed his home cardiac medications, continue to monitor for volume status. Patient at his baseline oxygen requirement. Patient does not appear volume overloaded. Started on IV Lasix 40 twice daily on admission. Continue closely renal function and volume status. Poss. COPD exacerb. Patient with history of COPD, on 3 L of supplemental oxygen at baseline In the ED received DuoNeb's and IV Solu-Medrol Has some chronic cough with minimal sputum production Minimal wheezing on exam We will try p.o. prednisone to see if helps with symptoms CJ Creatinine somewhat elevated at 1.8/2 Continue to monitor BMP, while patient on IV Lasix Failure to thrive Reimbursement Liaison consulted We will also consult with palliative medicine Other chronic medical conditions: As mentioned in HPI ---> resume home meds as able Heparin subcu Full code Admission and Anticipated Discharge Date Admission Date: April 26, 2022 Subjective Pt seen in follow up of dyspnea on exertion, hx of COPD, hx of end stage heart failure, failure to thrive in adult Currently sitting up in bed, in no acute distress, on supplemental oxygen 3L Reports dyspnea on exertion at home with ambulation Currently resting, and has not been moving. He is still in ED. Comfortable while at rest. He has history of COPD, and some chronic cough with minimal sputum production. Reports feeling better than yesterday. In the ED received methylprednisolone, DuoNeb. Then on admission was started on IV Lasix. Echo was obtained, overall EF 15 to 20%, this is unchanged. He is cachectic, and reports difficulty gaining weight. Continues to live with his , have home nursing about twice a week. Review of Systems Review of Systems: All systems reviewed & are unremarkable except as noted in Subjective Physical Exam Physical Exam: GENERAL: Alert and oriented x3. NAD, on 3L NC O2. Cachectic appearing, chronically ill/weak/frail appearing. HEENT: No pallor, no icterus. Pupils equal, round and reactive to light. Oral mucosa moist. NECK: No JVD, no neck masses. HEART: S1 and S2 heard. Regular rate and rhythm. No murmur, no gallop. RESPIRATORY: Normal AP diameter. No accessory muscle use. minimal wheezing, b/b crackles. ABDOMEN: Soft, bowel sounds present, nontender, no distention. NEURO: No facial droop. Speech is clear. Obeys simple commands. Moves extremities. EXTREMITIES: No edema, no erythema seen. Results & Data Results & Data ([facility]) Vital Signs (Past 12 Hours) Vital Signs Pulse Resp BP Pulse Ox O2 Del Method O2 Flow Rate 04/27/22 06:00 76 20 118/60 97 Nasal Cannula 3 04/27/22 04:00 63 16 97/41 L 99 Nasal Cannula 3 04/27/22 01:00 Nasal Cannula 3 04/27/22 00:00 70 12 130/55 L 100 Nasal Cannula 3 04/26/22 23:30 72 22 131/59 L 100 Nasal Cannula 3 04/26/22 23:00 72 21 126/53 L 100 Nasal Cannula 3 04/26/22 22:00 72 17 119/51 L 98 04/26/22 21:30 78 19 119/50 L 100 04/26/22 21:00 82 25 H 130/53 L 98 04/26/22 20:30 64 16 109/48 L 100 Laboratory Results 04/27/22 04/27/22 04/27/22 Range/Units 14:23 05:50 01:03 WBC (4.8-10.8) K/ul RBC (4.63-6.08) M/uL Hgb (14.0-18.0) g/dl Hct (40.1-51.0) % MCV (80.0-100.0) fL MCH (25.0-34.0) pg MCHC (32.0-36.0) g/dL RDW Std Deviation (36.4-46.3) fL RDW Coeff of Ty (11.5-14.5) % Plt Count (130-400) K/uL MPV (9.4-12.4) fL Immature Gran % (Auto) % Neut % (Auto) % Lymph % (Auto) % [place] % (Auto) % Eos % (Auto) % Baso % (Auto) % Neut # (Auto) (1.4-6.5) K/uL Lymph # (Auto) (1.2-3.4) K/uL [place] # (Auto) (0.24-0.82) K/uL Eos # (Auto) (0-0.50) K/uL Baso # (Auto) (0-0.2) K/uL Immature Gran # (Auto) (0.00-0.02) K/uL PT (9.0-12.0) Seconds INR (0.9-1.1) APTT (21.0-31.0) Seconds PTT Ratio Sodium 136 134 L (136-145) mmol/L Potassium 4.2 3.6 (3.5-5.1) mmol/L Chloride 95 L 92 L (98-107) mmol/L Carbon Dioxide 36 H 35 H (21-32) mmol/L Anion Gap 5 7 (3-11) BUN 39 H 37 H (6-23) mg/dl Creatinine 1.81 H 2.00 H (0.6-1.4) mg/dl Est Cr Clr Drug Dosing 21.6 19.5 ml/min Est GFR ( Amer) 38.4 34.0 ml/min Est GFR (Non-Af Amer) 33.1 29.3 ml/min BUN/Creatinine Ratio 21.5 H 18.5 (10-20) Glucose 149 H 214 H (70-99(Fasting)) mg/dl Calcium 9.1 8.7 (8.5-10.1) mg/dl Phosphorus 3.2 3.0 (2.5-4.9) mg/dl Magnesium 2.4 2.3 (1.7-2.4) mg/dl Iron (35-175) mcg/dl TIBC (250-450) mcg/dl Unsaturated IBC (155-355) mcg/dl Transferrin % Sat (20-50) % Ferritin (8-388) ng/ml Total Bilirubin (0.2-1.0) mg/dl AST (13-39) U/L ALT (7-52) U/L Alkaline Phosphatase (34-104) U/L Troponin I High Sens 37.2 H (0-20) pg/ml B-Natriuretic Peptide (0-100) pg/ml Total Protein (6.0-8.3) gm/dl Albumin (3.4-5.0) gm/dl Globulin (2.5-4.0) gm/dl Albumin/Globulin Ratio (0.9-2) Vitamin B12 (180-914) pg/ml Folate (>5.38) ng/ml Urine Color Urine Appearance (Clear) Urine pH (4.5-7.5) Ur Specific [place] (1.000-1.030) Urine Protein (Negative) Urine Glucose (UA) (Negative) Urine Ketones (Negative) Urine Blood (Negative) Urine Nitrite (Negative) Urine Bilirubin (Negative) Urine Urobilinogen (Negative) Ur Leukocyte Esterase (Negative) SARS-CoV-2 (PCR) (Negative) Influenza Type A (PCR) (Neg) Influenza Type B (PCR) (Neg) RSV (RT-PCR) (Neg) 04/27/22 04/27/22 04/26/22 Range/Units 01:03 01:03 21:00 WBC 8.78 (4.8-10.8) K/ul RBC 2.74 L (4.63-6.08) M/uL Hgb 9.0 L (14.0-18.0) g/dl Hct 28.1 L (40.1-51.0) % MCV 102.6 H (80.0-100.0) fL MCH 32.8 (25.0-34.0) pg MCHC 32.0 (32.0-36.0) g/dL RDW Std Deviation 46.0 (36.4-46.3) fL RDW Coeff of Ty 12.3 (11.5-14.5) % Plt Count 278 (130-400) K/uL MPV 10.9 (9.4-12.4) fL Immature Gran % (Auto) % Neut % (Auto) % Lymph % (Auto) % [place] % (Auto) % Eos % (Auto) % Baso % (Auto) % Neut # (Auto) (1.4-6.5) K/uL Lymph # (Auto) (1.2-3.4) K/uL [place] # (Auto) (0.24-0.82) K/uL Eos # (Auto) (0-0.50) K/uL Baso # (Auto) (0-0.2) K/uL Immature Gran # (Auto) (0.00-0.02) K/uL PT (9.0-12.0) Seconds INR (0.9-1.1) APTT (21.0-31.0) Seconds PTT Ratio Sodium (136-145) mmol/L Potassium (3.5-5.1) mmol/L Chloride (98-107) mmol/L Carbon Dioxide (21-32) mmol/L Anion Gap (3-11) BUN (6-23) mg/dl Creatinine (0.6-1.4) mg/dl Est Cr Clr Drug Dosing ml/min Est GFR ( Amer) ml/min Est GFR (Non-Af Amer) ml/min BUN/Creatinine Ratio (10-20) Glucose (70-99(Fasting)) mg/dl Calcium (8.5-10.1) mg/dl Phosphorus (2.5-4.9) mg/dl Magnesium (1.7-2.4) mg/dl Iron (35-175) mcg/dl TIBC (250-450) mcg/dl Unsaturated IBC (155-355) mcg/dl Transferrin % Sat (20-50) % Ferritin (8-388) ng/ml Total Bilirubin (0.2-1.0) mg/dl AST (13-39) U/L ALT (7-52) U/L Alkaline Phosphatase (34-104) U/L Troponin I High Sens 42.8 H (0-20) pg/ml B-Natriuretic Peptide (0-100) pg/ml Total Protein (6.0-8.3) gm/dl Albumin (3.4-5.0) gm/dl Globulin (2.5-4.0) gm/dl Albumin/Globulin Ratio (0.9-2) Vitamin B12 (180-914) pg/ml Folate (>5.38) ng/ml Urine Color Yellow Urine Appearance Clear (Clear) Urine pH 7.0 (4.5-7.5) Ur Specific [place] 1.012 (1.000-1.030) Urine Protein Negative (Negative) Urine Glucose (UA) Negative (Negative) Urine Ketones Negative (Negative) Urine Blood Negative (Negative) Urine Nitrite Negative (Negative) Urine Bilirubin Negative (Negative) Urine Urobilinogen Negative (Negative) Ur Leukocyte Esterase Negative (Negative) SARS-CoV-2 (PCR) (Negative) Influenza Type A (PCR) (Neg) Influenza Type B (PCR) (Neg) RSV (RT-PCR) (Neg) 04/26/22 04/26/22 04/26/22 Range/Units 17:45 17:45 17:35 WBC (4.8-10.8) K/ul RBC (4.63-6.08) M/uL Hgb (14.0-18.0) g/dl Hct (40.1-51.0) % MCV (80.0-100.0) fL MCH (25.0-34.0) pg MCHC (32.0-36.0) g/dL RDW Std Deviation (36.4-46.3) fL RDW Coeff of Ty (11.5-14.5) % Plt Count (130-400) K/uL MPV (9.4-12.4) fL Immature Gran % (Auto) % Neut % (Auto) % Lymph % (Auto) % [place] % (Auto) % Eos % (Auto) % Baso % (Auto) % Neut # (Auto) (1.4-6.5) K/uL Lymph # (Auto) (1.2-3.4) K/uL [place] # (Auto) (0.24-0.82) K/uL Eos # (Auto) (0-0.50) K/uL Baso # (Auto) (0-0.2) K/uL Immature Gran # (Auto) (0.00-0.02) K/uL PT (9.0-12.0) Seconds INR (0.9-1.1) APTT (21.0-31.0) Seconds PTT Ratio Sodium (136-145) mmol/L Potassium (3.5-5.1) mmol/L Chloride (98-107) mmol/L Carbon Dioxide (21-32) mmol/L Anion Gap (3-11) BUN (6-23) mg/dl Creatinine (0.6-1.4) mg/dl Est Cr Clr Drug Dosing ml/min Est GFR ( Amer) ml/min Est GFR (Non-Af Amer) ml/min BUN/Creatinine Ratio (10-20) Glucose (70-99(Fasting)) mg/dl Calcium (8.5-10.1) mg/dl Phosphorus (2.5-4.9) mg/dl Magnesium (1.7-2.4) mg/dl Iron (35-175) mcg/dl TIBC (250-450) mcg/dl Unsaturated IBC (155-355) mcg/dl Transferrin % Sat (20-50) % Ferritin (8-388) ng/ml Total Bilirubin (0.2-1.0) mg/dl AST (13-39) U/L ALT (7-52) U/L Alkaline Phosphatase (34-104) U/L Troponin I High Sens (0-20) pg/ml B-Natriuretic Peptide 224 H (0-100) pg/ml Total Protein (6.0-8.3) gm/dl Albumin (3.4-5.0) gm/dl Globulin (2.5-4.0) gm/dl Albumin/Globulin Ratio (0.9-2) Vitamin B12 823 (180-914) pg/ml Folate > 22.30 (>5.38) ng/ml Urine Color Urine Appearance (Clear) Urine pH (4.5-7.5) Ur Specific [place] (1.000-1.030) Urine Protein (Negative) Urine Glucose (UA) (Negative) Urine Ketones (Negative) Urine Blood (Negative) Urine Nitrite (Negative) Urine Bilirubin (Negative) Urine Urobilinogen (Negative) Ur Leukocyte Esterase (Negative) SARS-CoV-2 (PCR) NEGATIVE (Negative) Influenza Type A (PCR) Negative (Neg) Influenza Type B (PCR) Negative (Neg) RSV (RT-PCR) Negative (Neg) 04/26/22 04/26/22 04/26/22 Range/Units 17:35 17:35 17:35 WBC (4.8-10.8) K/ul RBC (4.63-6.08) M/uL Hgb (14.0-18.0) g/dl Hct (40.1-51.0) % MCV (80.0-100.0) fL MCH (25.0-34.0) pg MCHC (32.0-36.0) g/dL RDW Std Deviation (36.4-46.3) fL RDW Coeff of Ty (11.5-14.5) % Plt Count (130-400) K/uL MPV (9.4-12.4) fL Immature Gran % (Auto) % Neut % (Auto) % Lymph % (Auto) % [place] % (Auto) % Eos % (Auto) % Baso % (Auto) % Neut # (Auto) (1.4-6.5) K/uL Lymph # (Auto) (1.2-3.4) K/uL [place] # (Auto) (0.24-0.82) K/uL Eos # (Auto) (0-0.50) K/uL Baso # (Auto) (0-0.2) K/uL Immature Gran # (Auto) (0.00-0.02) K/uL PT 11.4 (9.0-12.0) Seconds INR 1.1 (0.9-1.1) APTT 31.0 (21.0-31.0) Seconds PTT Ratio 1.1 Sodium 136 (136-145) mmol/L Potassium 4.1 (3.5-5.1) mmol/L Chloride 93 L (98-107) mmol/L Carbon Dioxide 38 H (21-32) mmol/L Anion Gap 5 (3-11) BUN 36 H (6-23) mg/dl Creatinine 1.89 H (0.6-1.4) mg/dl Est Cr Clr Drug Dosing 20.7 ml/min Est GFR ( Amer) 36.4 ml/min Est GFR (Non-Af Amer) 31.4 ml/min BUN/Creatinine Ratio 19.0 (10-20) Glucose 100 H (70-99(Fasting)) mg/dl Calcium 8.9 (8.5-10.1) mg/dl Phosphorus (2.5-4.9) mg/dl Magnesium 2.4 (1.7-2.4) mg/dl Iron 31 L (35-175) mcg/dl TIBC 210 L (250-450) mcg/dl Unsaturated IBC 179 (155-355) mcg/dl Transferrin % Sat 15 L (20-50) % Ferritin 227.2 (8-388) ng/ml Total Bilirubin 0.4 (0.2-1.0) mg/dl AST 14 (13-39) U/L ALT 8 (7-52) U/L Alkaline Phosphatase 52 (34-104) U/L Troponin I High Sens 41.1 H (0-20) pg/ml B-Natriuretic Peptide (0-100) pg/ml Total Protein 8.6 H (6.0-8.3) gm/dl Albumin 3.4 (3.4-5.0) gm/dl Globulin 5.2 H (2.5-4.0) gm/dl Albumin/Globulin Ratio 0.7 L (0.9-2) Vitamin B12 (180-914) pg/ml Folate (>5.38) ng/ml Urine Color Urine Appearance (Clear) Urine pH (4.5-7.5) Ur Specific [place] (1.000-1.030) Urine Protein (Negative) Urine Glucose (UA) (Negative) Urine Ketones (Negative) Urine Blood (Negative) Urine Nitrite (Negative) Urine Bilirubin (Negative) Urine Urobilinogen (Negative) Ur Leukocyte Esterase (Negative) SARS-CoV-2 (PCR) (Negative) Influenza Type A (PCR) (Neg) Influenza Type B (PCR) (Neg) RSV (RT-PCR) (Neg) 04/26/22 Range/Units 17:35 WBC 8.75 (4.8-10.8) K/ul RBC 2.71 L (4.63-6.08) M/uL Hgb 9.1 L (14.0-18.0) g/dl Hct 27.7 L (40.1-51.0) % MCV 102.2 H (80.0-100.0) fL MCH 33.6 (25.0-34.0) pg MCHC 32.9 (32.0-36.0) g/dL RDW Std Deviation 45.9 (36.4-46.3) fL RDW Coeff of Ty 12.4 (11.5-14.5) % Plt Count 295 (130-400) K/uL MPV 11.1 (9.4-12.4) fL Immature Gran % (Auto) 0.8 % Neut % (Auto) 75.0 % Lymph % (Auto) 9.4 % [place] % (Auto) 8.8 % Eos % (Auto) 5.0 % Baso % (Auto) 1.0 % Neut # (Auto) 6.56 H (1.4-6.5) K/uL Lymph # (Auto) 0.82 L (1.2-3.4) K/uL [place] # (Auto) 0.77 (0.24-0.82) K/uL Eos # (Auto) 0.44 (0-0.50) K/uL Baso # (Auto) 0.09 (0-0.2) K/uL Immature Gran # (Auto) 0.07 H (0.00-0.02) K/uL PT (9.0-12.0) Seconds INR (0.9-1.1) APTT (21.0-31.0) Seconds PTT Ratio Sodium (136-145) mmol/L Potassium (3.5-5.1) mmol/L Chloride (98-107) mmol/L Carbon Dioxide (21-32) mmol/L Anion Gap (3-11) BUN (6-23) mg/dl Creatinine (0.6-1.4) mg/dl Est Cr Clr Drug Dosing ml/min Est GFR ( Amer) ml/min Est GFR (Non-Af Amer) ml/min BUN/Creatinine Ratio (10-20) Glucose (70-99(Fasting)) mg/dl Calcium (8.5-10.1) mg/dl Phosphorus (2.5-4.9) mg/dl Magnesium (1.7-2.4) mg/dl Iron (35-175) mcg/dl TIBC (250-450) mcg/dl Unsaturated IBC (155-355) mcg/dl Transferrin % Sat (20-50) % Ferritin (8-388) ng/ml Total Bilirubin (0.2-1.0) mg/dl AST (13-39) U/L ALT (7-52) U/L Alkaline Phosphatase (34-104) U/L Troponin I High Sens (0-20) pg/ml B-Natriuretic Peptide (0-100) pg/ml Total Protein (6.0-8.3) gm/dl Albumin (3.4-5.0) gm/dl Globulin (2.5-4.0) gm/dl Albumin/Globulin Ratio (0.9-2) Vitamin B12 (180-914) pg/ml Folate (>5.38) ng/ml Urine Color Urine Appearance (Clear) Urine pH (4.5-7.5) Ur Specific [place] (1.000-1.030) Urine Protein (Negative) Urine Glucose (UA) (Negative) Urine Ketones (Negative) Urine Blood (Negative) Urine Nitrite (Negative) Urine Bilirubin (Negative) Urine Urobilinogen (Negative) Ur Leukocyte Esterase (Negative) SARS-CoV-2 (PCR) (Negative) Influenza Type A (PCR) (Neg) Influenza Type B (PCR) (Neg) RSV (RT-PCR) (Neg) Medications Administered Current Inpatient Medications Acetaminophen (Acetaminophen 325 Mg Tab) 650 mg PO Q4H PRN PRN Reason: Pain or Fever Stop: 05/26/22 21:45 Al Hydrox/Mg Hydrox/Simethicone (Aluminum/Magnesium Susp 30 Ml Udc) 15 ml PO Q4H PRN PRN Reason: Dyspepsia Stop: 05/26/22 21:45 Amiodarone HCl (Amiodarone 200 Mg Tab) 100 mg PO QAM [facility] Stop: 05/27/22 08:59 Last Admin: 04/27/22 08:45 Dose: 100 mg Aspirin (Aspirin 81 Mg Ectab) 81 mg PO QAM [facility] Stop: 05/27/22 08:59 Last Admin: 04/27/22 08:46 Dose: 81 mg Finasteride (Finasteride 5 Mg Tab) 5 mg PO HS [facility] Stop: 05/26/22 23:33 Last Admin: 04/27/22 00:54 Dose: 5 mg Fluticasone Propionate (Fluticasone Propionate Na Spr 16 Gm Btl) 2 sprays NA DA IAN [facility] Stop: 05/27/22 08:59 Last Admin: 04/27/22 08:47 Dose: 2 sprays Fluticasone/Vilanterol (Fluticasone/Vilanterol 100/25mcg 14 Puffs/Inhaler) 1 puffs INH DAILY [facility] Stop: 05/27/22 08:59 Last Admin: 04/27/22 08:47 Dose: 1 puffs Furosemide (Furosemide 40 Mg Tab) 40 mg PO [id number] [facility] Stop: 05/27/22 08:59 Last Admin: 04/27/22 08:47 Dose: 40 mg Heparin Sodium (Porcine) (Heparin Sod 5,000 Unit/0.5 Ml Vial) 5,000 units SQ Q12 [facility] Stop: 05/27/22 08:59 Last Admin: 04/27/22 08:47 Dose: 5,000 units Hydralazine HCl (Hydralazine 10 Mg Tab) 5 mg PO [id number] [facility] Stop: 05/27/22 08:59 Last Admin: 04/27/22 08:46 Dose: 5 mg Isosorbide Dinitrate (Isosorbide Dinitrate 5 Mg Tab) 5 mg PO BID@0700,1200 [facility] Stop: 05/26/22 23:33 Last Admin: 04/27/22 11:33 Dose: 5 mg Magnesium Hydroxide (Magnesium Hydroxide Susp 30 Ml Udc) 30 ml PO Q12H PRN PRN Reason: Constipation Stop: 05/26/22 21:45 Melatonin (Melatonin 3 Mg Tab) 3 mg PO HS PRN PRN Reason: Sleep Stop: 05/26/22 23:42 Mirtazapine (Mirtazapine Tab 15 Mg Tab) 22.5 mg PO HS [facility] Stop: 05/27/22 00:29 Last Admin: 04/27/22 02:10 Dose: 22.5 mg Ondansetron HCl (Ondansetron Inj 2 Mg/Ml 2 Ml Vial) 4 mg IV Q6H PRN PRN Reason: Nausea Stop: 05/26/22 21:45 Potassium Chloride (Potassium Chloride Pwd 20 Meq Pack) 20 meq PO QAM [facility] Stop: 05/27/22 08:59 Last Admin: 04/27/22 08:47 Dose: 20 meq Prednisone (Prednisone 10 Mg Tablet) 30 mg PO QAM [facility] Stop: 05/27/22 15:14 Last Admin: 04/27/22 15:34 Dose: 30 mg Tamsulosin HCl (Tamsulosin Hcl 0.4 Mg Cap) 0.4 mg PO DAILY [facility] Stop: 05/27/22 08:59 Last Admin: 04/27/22 08:47 Dose: 0.4 mg
[2022-04-27] MEDS: AMIODARONE 200 MG TAB PO SCH (08:45)
[2022-04-27] MEDS: ASPIRIN 81 MG ECTAB PO SCH (08:46)
[2022-04-27] MEDS: hydrALAZINE 10 MG TAB PO SCH ×2 (08:46→18:32)
[2022-04-27] MEDS: FLUTICASONE/VILANTEROL 100/25MCG 14 PUFFS/INHALER INH SCH (08:47)
[2022-04-27] MEDS: FLUTICASONE PROPIONATE NA SPR 16 GM BTL SCH (08:47)
[2022-04-27] MEDS: POTASSIUM CHLORIDE PWD 20 MEQ PACK PO SCH (08:47)
[2022-04-27] MEDS: TAMSULOSIN HCL 0.4 MG CAP PO SCH (08:47)
[2022-04-27] MEDS: HEPARIN SOD 5,000 UNIT/0.5 ML VIAL SQ SCH ×2 (08:47→19:57)
[2022-04-27] MEDS: FUROSEMIDE 40 MG TAB PO SCH ×2 (08:47→18:32)
[2022-04-27] MEDS ORDERED: NON-FORMULARY MEDICATION (Food Supplemt, Lactose-Reduced Liquid) PO SCH (09:00)
[2022-04-27] MEDS ORDERED: POTASSIUM CHLORIDE CRTAB 20 MEQ TABCR PO STA (13:17)
--- NOTE | 2022-04-27 14:50 | Electrocardiogram Report ---
Test Reason : Blood Pressure : / mmHG Vent. Rate : 063 BPM Atrial Rate : 063 BPM P-R Int : 188 ms QRS Dur : 158 ms QT Int : 486 ms P-R-T Axes : 073 -24 147 degrees QTc Int : 497 ms Normal sinus rhythm Left bundle branch block Abnormal ECG When compared with ECG of 14-JAN-2022 05:14, No significant change was found Confirmed by Alexander Yang ([id number]) on 04/27/2022 2:50:10 PM Referred By: REFERRED SELF Confirmed By:Alexander Yang
[2022-04-27 15:10] LABS: BUN Creatinine Ratio 21.5 (10-20); Calcium 9.1 mg/dl (8.5-10.1); Creatinine Clr Calc Pharmacy 21.6 ml/min; Est GFR (African American) 38.4 ml/min; Est GFR (Non-African American) 33.1 ml/min; Magnesium 2.4 mg/dl (1.7-2.4); Phosphorus 3.2 mg/dl (2.5-4.9); Potassium 4.2 mmol/L (3.5-5.1)
[2022-04-27] MEDS: predniSONE 10 MG TABLET PO SCH (15:34)
[2022-04-28] MEDS: ISOSORBIDE DINITRATE 5 MG TAB PO SCH ×2 (08:17→12:05)
[2022-04-28] MEDS: predniSONE 10 MG TABLET PO SCH (08:17)
[2022-04-28] MEDS: ASPIRIN 81 MG ECTAB PO SCH (08:18)
[2022-04-28] MEDS: hydrALAZINE 10 MG TAB PO SCH (08:18)
[2022-04-28] MEDS: TAMSULOSIN HCL 0.4 MG CAP PO SCH (08:19)
[2022-04-28] MEDS: AMIODARONE 200 MG TAB PO SCH (08:19)
[2022-04-28] MEDS: FLUTICASONE PROPIONATE NA SPR 16 GM BTL SCH (08:20)
[2022-04-28] MEDS: FLUTICASONE/VILANTEROL 100/25MCG 14 PUFFS/INHALER INH SCH (08:20)
[2022-04-28] MEDS: POTASSIUM CHLORIDE PWD 20 MEQ PACK PO SCH (08:27)
[2022-04-28] MEDS: HEPARIN SOD 5,000 UNIT/0.5 ML VIAL SQ SCH (09:07)
[2022-04-28] MEDS: FUROSEMIDE 40 MG TAB PO SCH (09:07)
--- NOTE | 2022-04-28 09:27 | Hospitalist Progress Note ---
Date of Service April 28, 2022 Assessment & Plan (1) CONNELLY (dyspnea on exertion): Plan Dyspnea on exertion: Multifactorial, viral panel and UA negative. End-stage systolic heart failure COPD (Chronic resp. failure - on 3L at baseline) Failure to thrive. Severe protein-calorie malnutrition Anemia: no obvious bleed. Hemoglobin 9.1 at admission, baseline hemoglobin greater than 11, FOBT, iron panel, monitor H&H. Likely due to poor appetite. Patient presents with dyspnea on exertion, progressively worsening. Patient reports worsening appetite on the background of chronic poor appetite. Patient appears cachectic and ill/weak/frail. Patient denies chest pain. Admitting CXR w/ no acute findings. Admitting Trop/EKG reviewed, trop trending down (only min. elevated at 40), EKG with chest pain. Admitting BNP better than in the past. Echo obtained, continues to show EF 15 to 20%. Regular diet as he has poor appetite, dietitian consult. Tele monitoring. Resumed his home cardiac medications, continue to monitor for volume status. Patient at his baseline oxygen requirement. Patient does not appear volume overloaded. Started on IV Lasix 40 twice daily on admission. Continue closely renal function and volume status. Poss. COPD exacerb. Patient with history of COPD, on 3 L of supplemental oxygen at baseline In the ED received DuoNeb's and IV Solu-Medrol Has some chronic cough with minimal sputum production Minimal wheezing on exam tried p.o. prednisone and patient's symptoms seem improved, will continue for few more days on discharge CJ Creatinine somewhat elevated at 1.8/2 Continue to monitor BMP, while patient on IV Lasix Cr 1.8 cont. 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 also consulted palliative medicine Other chronic medical conditions: As mentioned in HPI ---> resume home meds as able Heparin subcu Full code Admission and Anticipated Discharge Date Admission Date: April 26, 2022 Subjective Pt seen in follow up of dyspnea on exertion, hx of COPD, hx of end stage heart failure, failure to thrive in adult Currently sitting up in bed, in no acute distress, on supplemental oxygen, eating lunch Reports feeling much better, worked with PT today, PT recommends return home Patient feels that he is ready to go home as well Denies chest pain increase shortness of breath, said he was able to walk around the bed He is cachectic, and reports difficulty gaining weight. Continues to live with his , have home nursing about twice a week. Review of Systems Review of Systems: All systems reviewed & are unremarkable except as noted in Subjective Physical Exam Physical Exam: GENERAL: Alert and oriented x3. NAD, on suppl. O2. via NC. Cachectic, chronically ill/weak/frail appearing. HEENT: No pallor, no icterus. Pupils equal, round and reactive to light. Oral mucosa moist. NECK: No JVD, no neck masses. HEART: S1 and S2 heard. Regular rate and rhythm. No murmur, no gallop. RESPIRATORY: Normal AP diameter. No accessory muscle use.CTAB no wheezing ABDOMEN: Soft, bowel sounds present, nontender, no distention. NEURO: No facial droop. Speech is clear. Obeys simple commands. Moves extremities. EXTREMITIES: No edema, no erythema seen. Results & Data Results & Data ([facility]) Vital Signs (Past 12 Hours) Vital Signs Temp Pulse Pulse Resp BP Pulse Ox O2 Del Method 04/28/22 07:57 36.5 C 56 L 17 131/54 L 98 Nasal Cannula 04/28/22 07:44 64 04/28/22 03:15 36.4 C L 64 18 118/51 L 98 Nasal Cannula 04/27/22 22:51 36.4 C L 63 18 121/63 99 Nasal Cannula O2 Flow Rate 04/28/22 07:57 1 04/28/22 07:44 04/28/22 03:15 04/27/22 22:51 Laboratory Results 04/27/22 Range/Units 14:23 Sodium 136 (136-145) mmol/L Potassium 4.2 (3.5-5.1) mmol/L Chloride 95 L (98-107) mmol/L Carbon Dioxide 36 H (21-32) mmol/L Anion Gap 5 (3-11) BUN 39 H (6-23) mg/dl Creatinine 1.81 H (0.6-1.4) mg/dl Est Cr Clr Drug Dosing 21.6 ml/min Est GFR ( Amer) 38.4 ml/min Est GFR (Non-Af Amer) 33.1 ml/min BUN/Creatinine Ratio 21.5 H (10-20) Glucose 149 H (70-99(Fasting)) mg/dl Calcium 9.1 (8.5-10.1) mg/dl Phosphorus 3.2 (2.5-4.9) mg/dl Magnesium 2.4 (1.7-2.4) mg/dl Medications Administered Current Inpatient Medications Acetaminophen (Acetaminophen 325 Mg Tab) 650 mg PO Q4H PRN PRN Reason: Pain or Fever Stop: 05/26/22 21:45 Al Hydrox/Mg Hydrox/Simethicone (Aluminum/Magnesium Susp 30 Ml Udc) 15 ml PO Q4H PRN PRN Reason: Dyspepsia Stop: 05/26/22 21:45 Amiodarone HCl (Amiodarone 200 Mg Tab) [facility] [place] Stop: 05/27/22 08:59 Last Admin: 04/28/22 08:19 Dose: 100 mg Aspirin (Aspirin 81 Mg Ectab) 81 mg PO [facility] Stop: 05/27/22 08:59 Last Admin: 04/28/22 08:18 Dose: 81 mg Finasteride (Finasteride 5 Mg Tab) 5 mg PO HS [facility] Stop: 05/26/22 23:33 Last Admin: 04/27/22 19:58 Dose: 5 mg Fluticasone Propionate (Fluticasone Propionate Na Spr 16 Gm Btl) 2 sprays NA DAILY [facility] Stop: 05/27/22 08:59 Last Admin: 04/28/22 08:20 Dose: 2 sprays Fluticasone/Vilanterol (Fluticasone/Vilanterol 100/25mcg 14 Puffs/Inhaler) 1 puffs INH DAILY [facility] Stop: 05/27/22 08:59 Last Admin: 04/28/22 08:20 Dose: 1 puffs Furosemide (Furosemide 40 Mg Tab) 40 mg PO BID17 [facility] Stop: 05/27/22 08:59 Last Admin: 04/28/22 09:07 Dose: 40 mg Heparin Sodium (Porcine) (Heparin Sod 5,000 Unit/0.5 Ml Vial) 5,000 units SQ Q12 [facility] Stop: 05/27/22 08:59 Last Admin: 04/28/22 09:07 Dose: 5,000 units Hydralazine HCl (Hydralazine 10 Mg Tab) 5 mg PO BID17 [facility] Stop: 05/27/22 08:59 Last Admin: 04/28/22 08:18 Dose: 5 mg Isosorbide Dinitrate (Isosorbide Dinitrate 5 Mg Tab) 5 mg PO BID@0700,1200 [facility] Stop: 05/26/22 23:33 Last Admin: 04/28/22 08:17 Dose: 5 mg Magnesium Hydroxide (Magnesium Hydroxide Susp 30 Ml Udc) 30 ml PO Q12H PRN PRN Reason: Constipation Stop: 05/26/22 21:45 Melatonin (Melatonin 3 Mg Tab) 3 mg PO HS PRN PRN Reason: Sleep Stop: 05/26/22 23:42 Mirtazapine (Mirtazapine Tab 15 Mg Tab) 22.5 mg PO HS [facility] Stop: 05/27/22 00:29 Last Admin: 04/27/22 19:58 Dose: 22.5 mg Ondansetron HCl (Ondansetron Inj 2 Mg/Ml 2 Ml Vial) 4 mg IV Q6H PRN PRN Reason: Nausea Stop: 05/26/22 21:45 Potassium Chloride (Potassium Chloride Pwd 20 Meq Pack) 20 meq PO QAM [facility] Stop: 05/27/22 08:59 Last Admin: 04/28/22 08:27 Dose: 20 meq Prednisone (Prednisone 10 Mg Tablet) 30 mg PO QAM [facility] Stop: 05/27/22 15:14 Last Admin: 04/28/22 08:17 Dose: 30 mg Tamsulosin HCl (Tamsulosin Hcl 0.4 Mg Cap) 0.4 mg PO DAILY [facility] Stop: 05/27/22 08:59 Last Admin: 04/28/22 08:19 Dose: 0.4 mg
[2022-04-28 09:59] LABS: Hematocrit (blood only) 27.4 % (40.1-51.0); Hemoglobin 9.1 g/dl (14.0-18.0); Mean Corpuscular Hemoglobin 33.7 pg (25.0-34.0); Mean Corpuscular Hgb Conc 33.2 g/dL (32.0-36.0); Mean Corpuscular Volume 101.5 fL (80.0-100.0); Platelet Count 316 K/uL (130-400); RDW Coefficient of Variation 12.2 % (11.5-14.5); RDW Standard Deviation 45.1 fL (36.4-46.3); White Blood Count 21.24 K/ul (4.8-10.8)
[2022-04-28 10:22] LABS: BUN Creatinine Ratio 22.7 (10-20); Calcium 9.3 mg/dl (8.5-10.1); Creatinine Clr Calc Pharmacy 19.8 ml/min; Est GFR (African American) 37.4 ml/min; Est GFR (Non-African American) 32.3 ml/min; Magnesium 2.4 mg/dl (1.7-2.4); Phosphorus 3.4 mg/dl (2.5-4.9); Potassium 4.7 mmol/L (3.5-5.1)
--- NOTE | 2022-04-28 12:50 | Discharge Summary ---
Date of Service April 28, 2022 Admission HPI Per Admitting Provider 87-year-old man with PMH of chronic respiratory failure secondary to COPD on home O2 3L, chronic systolic heart failure (15 to 20%, TTE 2021) status post ICD status post removal secondary to infection, CAD, chronic LBBB, valvular heart disease (moderate to severe MR, mild TR), pulmonary hypertension, hypertension, hyperlipidemia, chronic anemia (baseline hemoglobin 11 ), past tobacco/alcohol abuse presented to the ED 04/26/2022 with complaint of progressive dyspnea with exertion. Patient reports shortness of breath and dizziness with walking as he describes he needs to sit down to catch up on breath when he is walking from his bedroom to kitchen. This has been going on for last few weeks. Patient reports worsening shortness of breath and is now not able to cover that much of a distance since last few days. Patient also reports cough increasing in frequency but has chronic scant yellow mucus with the cough which has not changed. Patient denies sore throat/chest pain/palpitations/belly pain/acute changes in his bowel or bladder habit. Patient reports chronic low appetite which has gotten even worse lately. Patient has been maintaining saturation on his baseline oxygen which is 3 L. Patient denies smoking/alcohol/drug use history but per records he has past tobacco and alcohol abuse. Full code as per my discussion with the patient. 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 Medications reviewed with the patient, plan of care discussed with the patient. Admission Exam Per Admitting Provider GENERAL: Alert and oriented x3. NAD, on 3L NC O2. Cachectic appearing, chronically ill/weak/frail appearing. HEENT: No pallor, no icterus. Pupils equal, round and reactive to light. Oral mucosa moist. NECK: No JVD, no neck masses. HEART: S1 and S2 heard. Regular rate and rhythm. No murmur, no gallop. RESPIRATORY SYSTEM: Normal AP diameter. No accessory muscle use. No wheezing, b/b crackles. ABDOMEN: Soft, bowel sounds present, nontender, no distention. CENTRAL NERVOUS SYSTEM: No facial droop. Speech is clear. Obeys simple commands. Moves extremities. EXTREMITIES: No edema, no erythema seen. Principal Diagnosis Dyspnea on exertion, end-stage heart failure, possible COPD exacerbation, failure to thrive Chronic hypoxic respiratory failure Discharge Exam GENERAL: Alert and oriented x3. NAD, on suppl. O2. via NC. Cachectic, chronically ill/weak/frail appearing. HEENT: No pallor, no icterus. Pupils equal, round and reactive to light. Oral mucosa moist. NECK: No JVD, no neck masses. HEART: S1 and S2 heard. Regular rate and rhythm. No murmur, no gallop. RESPIRATORY: Normal AP diameter. No accessory muscle use.CTAB no wheezing ABDOMEN: Soft, bowel sounds present, nontender, no distention. NEURO: No facial droop. Speech is clear. Obeys simple commands. Moves extremities. EXTREMITIES: No edema, no erythema seen. Discharge Data Allergies Allergy/AdvReac Type Severity Reaction Status Date / Time No Known Allergies Allergy Unknown Verified 04/26/22 20:01 Consultations 04/26/22 20:50 ED Decision to Admit Stat 04/27/22 14:55 Consult Palliative Care Routine Hospital Course (1) CONNELLY (dyspnea on exertion): Plan Dyspnea on exertion: Multifactorial, viral panel and UA negative. End-stage systolic heart failure COPD (Chronic resp. failure - on 3L at baseline) Failure to thrive. Severe protein-calorie malnutrition Anemia: no obvious bleed. Hemoglobin 9.1 at admission, baseline hemoglobin greater than 11, FOBT, iron panel, monitor H&H. Likely due to poor appetite. Patient presents with dyspnea on exertion, progressively worsening. Patient reports worsening appetite on the background of chronic poor appetite. Patient appears cachectic and ill/weak/frail. Patient denies chest pain. Admitting CXR w/ no acute findings. Admitting Trop/EKG reviewed, trop trending down (only min. elevated at 40), EKG with chest pain. Admitting BNP better than in the past. Echo obtained, continues to show EF 15 to 20%. Regular diet as he has poor appetite, dietitian consult. Tele monitoring. Resumed his home cardiac medications, continue to monitor for volume status. Patient at his baseline oxygen requirement. Patient does not appear volume overloaded. Started on IV Lasix 40 twice daily on admission. Continue closely renal function and volume status. Continue home p.o. Lasix on discharge Poss. COPD exacerb. Patient with history of COPD, on 3 L of supplemental oxygen at baseline In the ED received DuoNeb's and IV Solu-Medrol Has some chronic cough with minimal sputum production Minimal wheezing on exam tried p.o. prednisone and patient's symptoms seem improved, will continue for few more days on discharge CJ Creatinine somewhat elevated at 1.8/2 Continue to monitor BMP, while patient on IV Lasix Cr 1.8 cont. 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 medicine Total Time Total Time Spent Total Time Spent (In Minutes): 40 Discharge Plan Discharge Items Patient Disposition: Home - Home Health Services Reason For Visit: SOB Discharge Diagnosis: Dyspnea on exertion, end-stage heart failure, possible COPD exacerbation, failure to thrive Chronic hypoxic respiratory failure Activity: Per Instructions section Non-emergency contact: Primary Care Provider Call non-emergency contact if: you have any medication questions and your symptoms worsen Follow-up/Referrals: Justin Roberts MD [Primary Care Provider] - (Date & Time 05/02/2022 10:40 AM Provider Justin Roberts MD [facility] ) Diet: Regular Addtl Attending Provider Instructions: Follow-up with your primary care doctor, the appointment was scheduled for you for May 02. Take prednisone 20 mg daily for the next 3 days. Monitor your weight, and record your weight every morning. Please see further instructions below. Continue to take your Lasix. If you are gaining weight, developing more shortness of breath, you may need to follow-up with your casting cleaner. Addtl Ironmolder Provider Instructions: Call your Primary Care doctor if any of the following symptoms or problems start or get worse: * Shortness of breath or difficulty breathing * Wake up at night short of breath * Chest pain * Cough * Swelling of your hands, feet, or legs * More fatigued or tired with your normal activity * Palpitations - sudden fast heart beats WEIGHT * Weigh yourself every morning after using the bathroom. * Use the same scale. * Wear the same amount of clothing. * Write your weight down on a chart. * Call your Primary Care doctor if you gain more than 2-3 pounds in 1-2 days. MEDICATIONS * Use this discharge instruction sheet for medication instructions. * Take your medications at the time your doctor ordered. * Do not skip a dose of your medicines. * If you miss a dose of medicine, take it as soon as possible, but DO NOT DOUBLE A DOSE. * Read your medicine information when you get home. * Know all of the side effects of your medicine. If in doubt, ask your pharmacist * Call your Primary Care doctor's office if you have any side effects. * Be sure all of your doctors know what medicine and herbs you take (including cold, flu, and herbal medicine). Take the following with you to your follow-up doctor appointments: * Weight Chart * Medication List * List of questions Do not drink excessive alcohol, beer or wine. Pending Studies at Discharge: No Stand-Alone Forms: [facility] [employer], Smoking Cessation Medications and DC Order Prescriptions: New prednisone 20 mg tablet 20 mg PO DAILY 3 Days Qty: 3 0RF Continued aspirin 81 mg Tablet,Delayed Release (Dr/Ec) 81 mg PO QAM mirtazapine 45 mg tablet 22.5 mg PO HS finasteride 5 mg tablet 5 mg PO HS amiodarone 200 mg tablet 100 mg PO QAM Qty: 0 0RF tamsulosin 0.4 mg capsule 0.4 mg PO DAILY furosemide 40 mg Tablet 40 mg PO BID17 Qty: 60 0RF isosorbide dinitrate 5 mg Tablet 5 mg PO BID Qty: 60 0RF potassium chloride [Klor-Con] 20 mEq packet 20 meq PO QAM Rx Instructions: mix 1 packet with 8 ounces of water daily and drink hydralazine 10 mg tablet 5 mg PO BID17 Rx Instructions: 1/2 tablet dose mometasone 50 mcg/actuation spray,non-aerosol 2 spray INTRANASAL DAILY Rx Instructions: 2 sprays into each nostril acetaminophen 325 mg tablet 325 mg PO Q4H PRN (Reason: Pain) fluticasone propion-salmeterol [Wixela Inhub] 250-50 mcg/dose blister with device 1 inh INHALATION [facility] Boost Plus Liquid 2 ea PO DAILY melatonin 5 mg Tablet 5 mg PO HS PRN (Reason: Sleep) Discharge Orders: Discharge Order (Routine); Ordered 04/28/22 Ordered By: Mukul Caceres Admission Data Admit Date/Time: 04/26/22 21:11 Attending Provider: Mukul Caceres Admit Provider: Kaylee Henry Primary Care Provider: Justin Rboerts Other Providers: Kaylee Henry ; Ella Harrison
--- NOTE | 2022-04-28 14:13 | Palliative Care Consultation ---
Date of Consultation April 28, 2022 Assessment & Plan (1) CONNELLY (dyspnea on exertion): Improving per his report. Could consider low dose opioid for relief but with dizziness, his fall risk would be increased. He is not interested in opioids at this time. (2) Palliative care encounter: I spoke with Mr. Victoria on previous admission and he was clear that his goal for care was to remain alive as long as possible. He specifically indicated that he would want full resuscitation if needed, despite discussion that here was very little chance that he would be resuscitated to his current level of function. Chart indicates that disease case manager at [facility] had been working with Mr. Victoria on possible hospice at home. I asked him what he thought about hospice. He recognizes that he needs additional support at home. He does not object to hospice but doesn't seem to have full insight into hospice being focused on symptom relief and support over ongoing disease management. He does tell me that he understands "I'm not going to be around for long". I asked him if he had fears or worries about this. He is concerned about his who also has health problems. They do have family support in the area. We talked about his code status. He again, tells me that he would want intubation and full code. He understands that there is a strong possibliity that he would have difficulty being weaned from vent support and acknowledges that his family would then have to make the decision "to pull the plug". We discussed how difficult that would be for his family. He feels that his would not be able to make that decision and has designated is daughter, Adilene Victoria, as his surrogate decision maker. He tells me that he has discussed his wishes with his daughter. I tried to call Adilene alvarado 2 but was not able to reach her. History of Present Illness Reason for Consultation: goals of care Requesting Physician: Dr. Caceres Attending Physician: Mukul Caceres MD History of Present Illness 87 yo gentleman with CAD, cardiomyopathy and EF of 15-20%, as well as pulmonary hypertension and COPD. He has chronic respiratory failure with baseline 3L at home. He has had multiple hospitalizations for acute on chronic respiratory failure and presented this admission with dyspnea on exertion and dizziness. He has been seen by palliative care on a previous admission in October 2021. We have been consulted to continue discussion of goals of care. He is awake and alert. He denies pain. He complains of shortness of breath with conversation and poor appetite, though he tells me that he had a good breakfast this morning. Allergies Allergy/AdvReac Type Severity Reaction Status Date / Time No Known Allergies Allergy Unknown Verified 04/26/22 20:01 Home Medications Medication Instructions Recorded Confirmed Type aspirin 81 mg tablet,delayed 81 mg PO QAM 10/27/18 04/26/22 History release mirtazapine 45 mg tablet 22.5 mg PO HS 10/27/18 04/26/22 History finasteride 5 mg tablet 5 mg PO HS 07/31/19 04/26/22 History amiodarone 200 mg tablet 100 mg PO QAM #0 tabs 08/11/19 04/26/22 Rx tamsulosin 0.4 mg capsule 0.4 mg PO DAILY 06/23/21 04/26/22 History isosorbide dinitrate 5 mg tablet 5 mg PO BID #60 tabs 11/15/21 04/26/22 Rx furosemide 40 mg tablet 40 mg PO BID17 #60 tabs 01/19/22 04/26/22 Rx acetaminophen 325 mg tablet 325 mg PO Q4H PRN Pain 04/26/22 04/26/22 History fluticasone 250 mcg-salmeterol 50 1 inh inhalation [facility] 04/26/22 04/26/22 History mcg/dose blistr powdr for inhalation (Wixela Inhub) food supplemt, lactose-reduced 2 ea PO DAILY 04/26/22 04/26/22 History hydralazine 10 mg tablet 5 mg PO BID17 04/26/22 04/26/22 History melatonin 5 mg tablet 5 mg PO HS PRN Sleep 04/26/22 04/26/22 History mometasone 50 mcg/actuation nasal 2 spray intranasal DAILY 04/26/22 04/26/22 History spray potassium chloride 20 mEq oral 20 meq PO QAM 04/26/22 04/26/22 History packet (Klor-Con) prednisone 20 mg tablet 20 mg PO DAILY 3 days #3 tabs 04/28/22 Rx Patient History Medical History 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 Underwent procedure without any complications; monitored overnight and discharged home. 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 11/01/18 = widely patent coronary arteries History of cardiac cath SEPTEMBER 2018 AT [facility] NO STENTS History of cataract surgery BILATERAL History of colonoscopy History of tonsillectomy and adenoidectomy History of total left hip replacement Family History Mother Hypertension Brother FHx: myocardial infarction HALF-BROTHER Sister Kidney transplant status Social History Smoking Status: Former smoker Tobacco Type: Cigarettes Second Hand Exposure: No; Hx Alcohol Use: No Hx Substance Use: No Preferred Language: Cook Islander Communication Ability: Effective Television Operator Required: No Beliefs That Will Affect Care: None marital status: Current Living Situation: Spouse Current Living Situation Comment: UNABLE TO CONFIRM AT THIS TIME current occupational status: retired How many Children do You have: 3 Feels Safe at Home: Yes Safety Concerns: Feels Safe At This Time Assistive Devices: Oxygen - Continuous Review of Systems Review of Systems: ESAS Pain 0/3 Dyspnea 2/3 NAusea 0/3 Drowsiness 0/3 FAtigue 0/3 Physical Exam Constitutional: + thin and + frail appearing ENMT: temporal wasting Respiratory: + uses accessory muscles; no respiratory distress Cardiovascular: Rate/Rhythm: regular rate and regular rhythm Extremities: no edema Gastrointestinal (Abdomen): Inspection/Auscultation: abdomen normal to insp ection LBM 1/3 Musculoskeletal: Extremities: + muscle atrophy Neurologic: Speech / Cognition: normal cognition Genitourinary: Continent Results & Data ([facility]) Vital Signs (Past 12 Hours) Vital Signs Temp Pulse Pulse Resp BP Pulse Ox O2 Del Method 04/28/22 11:58 97.5 F L 67 18 143/64 H 100 Nasal Cannula 04/28/22 07:45 Nasal Cannula 04/28/22 10:27 97 04/28/22 07:57 97.7 F 56 L 17 131/54 L 98 Nasal Cannula 04/28/22 07:44 64 04/28/22 03:15 97.5 F L 64 18 118/51 L 98 Nasal Cannula O2 Flow Rate 04/28/22 11:58 3 04/28/22 07:45 3 04/28/22 10:27 04/28/22 07:57 1 04/28/22 07:44 04/28/22 03:15 PG Care Time/CCT Total # of Minutes Spent Total Time Spent with Patient: Total time spent is greater than 50% in coordination of care (as documented) at patient's floor/unit and/or counseling patient: Coding Level of Care Code 56046 INT INP/OBS CARE 2/55MIN Diagnoses CONNELLY (dyspnea on exertion) R06.09 Palliative care encounter Z51.5
== END 2022-04-28 16:35 | disposition home health service (06) | DRG 190 ==
LOC: ED 17:18 → SUATTDRO 21:11 → EDINP 21:11 → 4W 23:34